=== PATIENT | male | born 1950 | race Caucasian/White ===

== ENCOUNTER 2017-04-04 18:23 | Inpatient (IN) | payer MEDICAID, OTHER ==
[2017-04-04 18:29] VITALS: BMI 27.4
[2017-04-04 18:54] LABS: BASO # 0.1 K/uL (0.0-0.2); BASO % 0.8 % (0.0-2.0); EOS # 0.3 K/uL (0.0-0.7); EOS % 3.1 % (0.0-4.0); HEMATOCRIT 35.5 % (35.0-51.0); LYMPH # 2.1 K/uL (1.0-4.3); LYMPH % 22.6 % (20.0-40.0); MEAN CELL VOLUME 85.2 fL (80.0-94.0); MEAN CORPUSCULAR HEMOGLOBIN 28.5 pg (27.0-31.0); MEAN CORPUSCULAR HGB CONC 33.5 g/dL (33.0-37.0); MEAN PLATELET VOLUME 8.4 fL (7.2-11.7); MONO # 1.6 K/uL (0.0-0.8); MONO % 16.7 % (0.0-10.0); NRBC % 0.1 % (0.0-2.0); RED CELL DISTRIBUTION WIDTH 15.7 % (11.5-14.5); WHITE BLOOD COUNT 9.5 K/uL (4.8-10.8)
[2017-04-04 18:59] LABS: CHLORIDE 101 mmol/L (98-107); SODIUM 135 mmol/L (132-148)
[2017-04-04 19:01] LABS: BILIRUBIN,TOTAL 0.8 mg/dL (0.2-1.3); GFR AFRICAN-AMERICAN > 60
[2017-04-04 19:02] LABS: ALB/GLOB RATIO 1.1 (1.0-2.1); ALKALINE PHOSPHATASE 62 U/L (38-126); ALT/SGPT 20 U/L (21-72); AST/SGOT 19 U/L (17-59); BLOOD UREA NITROGEN 7 mg/dL (9-20); CARBON DIOXIDE 28 mmol/L (22-30); GLUCOSE,RANDOM 111 mg/dL (75-110); TOTAL PROTEIN 6.7 g/dL (6.3-8.3)
[2017-04-04 19:03] LABS: CALCIUM 8.4 mg/dl (8.6-10.4); INR 1.2
--- NOTE | 2017-04-04 19:45 | C.PDOC ---
History Of Present Illness Patient presents to the ER with a complaint of dyspenia and chest pain that began 1 hour NET TRAINER, associated with green/yellow sputum. Patient states he has not taken any medication for the pain. Patient is speaking in complete sentences. Denies fever, chills, nausea or vomiting. Time Seen by Provider: 04/04/17 19:44 Chief Complaint (Nursing): Chest Pain History Per: Patient History/Exam Limitations: no limitations Onset/Duration Of Symptoms: Hrs (1) Current Symptoms Are (Timing): Still Present Severity: Mild Pain Scale Rating Of: 4 Associated Symptoms: Other (Green/yellow sputum) Modifying Factors: None Exacerbating Factors: None Alleviating Factors: None Recent travel outside of the [place]: No Past Medical History Reviewed: Historical Data, Nursing Documentation, Vital Signs Vital Signs: Last Vital Signs Temp 98.1 F 04/04/17 18:45 Pulse 114 H 04/04/17 21:25 Resp 22 04/04/17 21:25 BP 119/63 04/04/17 21:25 Pulse Ox 95 04/04/17 21:33 - Medical History PMH: Asthma, CHF, COPD, Pneumonia, Pulmonary Embolism Surgical History: No Surg Hx - [facility] Procedures ASSISTANCE WITH RESPIRATORY VENTILATION, >96 HRS (07/28/16) INFLUENZA VACCINATION (08/27/13) INSERTION OF INFUSION DEV INTO SUP VENA CAVA, PERC APPROACH (07/28/16) INSERTION OF INTRALUM DEV INTO INF VENA CAVA, PERC APPROACH (03/09/17) INTRODUCE OF OTH THERAP SUBST INTO RESP TRACT, VIA OPENING (05/25/16) INTRODUCTION OF ANTI-INFLAM INTO RESP TRACT, VIA OPENING (03/09/17) INTRODUCTION OF SERUM/TOX/VACCINE INTO MUSCLE, PERC APPROACH (07/28/16) NEBULIZER THERAPY (08/26/14) TRANSFUSE NONAUT FROZEN PLASMA IN PERIPH VEIN, PERC (07/28/16) TRANSFUSE NONAUT PLASMA CRYOPRECIP IN PERIPH VEIN, PERC (07/28/16) TRANSFUSE NONAUT RED BLOOD CELLS IN PERIPH VEIN, PERC (07/28/16) VACCINATION NEC (08/27/13) Family History: States: Unknown Family Hx, OR, Diabetes - Social History Hx Tobacco Use: Yes (1/2 CIG/DAY) Hx Alcohol Use: Yes Hx Substance Use: No - Immunization History Hx Tetanus Toxoid Vaccination: No Hx Influenza Vaccination: No Hx Pneumococcal Vaccination: No Review Of Systems Constitutional: Negative for: Fever, Chills ENT: Negative for: Throat Pain Cardiovascular: Positive for: Chest Pain Respiratory: Positive for: Shortness of Breath Gastrointestinal: Negative for: Nausea, Vomiting Genitourinary: Negative for: Dysuria Musculoskeletal: Negative for: Back Pain Skin: Positive for: Rash Neurological: Negative for: Weakness Psych: Negative for: Anxiety Physical Exam - Physical Exam Appears: Non-toxic Skin: Warm, Dry, Other (Diffuse psoriatic patches to arms, legs and back. Poor vascular venous stasis skin changes.) Eye(s): bilateral: Normal Inspection Oral Mucosa: Moist Neck: Supple Chest: Symmetrical, No Tenderness Cardiovascular: Rhythm Regular (Tachycardic), No Murmur Respiratory: Decreased Breath Sounds, No Rales, Rhonchi, Wheezing Gastrointestinal/Abdominal: Soft, No Tenderness Back: Normal Inspection Extremity: Pedal Edema (Bilaterally), No Calf Tenderness Extremity: Bilateral: Painful To Bear Weight Neurological/Psych: Oriented x3, Normal Speech, Normal Cognition Gait: With Assistance ED Course And Treatment - Laboratory Results Result Diagrams: 04/04/17 18:46 04/04/17 18:46 ECG: Interpreted By Me, Viewed By Me ECG Rhythm: Nonspecific Changes O2 Sat by Pulse Oximetry: 95 (Room air) Pulse Ox Interpretation: Normal - Radiology CXR: Interpreted by Me, Viewed By Me CXR Interpretation: Yes: Cardiomegaly, Other (?rll infiltrate). No: Fracture, Pnemothorax Progress Note: EKG, CXR and blood work ordered. Aspirin, lasix and nebulizer treatment administered. Disposition Discussed With : Bc Sanches Comment: accepted the pt on his service and took over the care at 10:33 PM Doctor Will See Patient In The: ED Counseled Patient/Family Regarding: Studies Performed, Diagnosis - Disposition Disposition: HOSPITALIZED Disposition Time: 19:45 Condition: FAIR - POA Present On Arrival: Poor Glycemic Control - Clinical Impression Clinical Impression: Acute exacerbation of chronic obstructive pulmonary disease - Scribe Statement The provider has reviewed the documentation as recorded by the Scribe Gibson Rivera All medical record entries made by the Scribe were at my direction and personally dictated by me. I have reviewed the chart and agree that the record accurately reflects my personal performance of the history, physical exam, medical decision making, and the department course for this patient. I have also personally directed, reviewed, and agree with the discharge instructions and disposition. Decision To Admit - Pt Status Changed To: Hospital Disposition Of: Inpatient - Admit Certification Admit to Inpatient:: After my assessment, the patient will require hospitalization for at least two midnights. This is because of the severity of symptoms shown, intensity of services needed, and/or the medical risk in this patient being treated as an outpatient. - InPatient: Physician Admission Certification: I certify that this patient requires 2 or more midnights of care for the following reason:: After my assessment, the patient will require hospitalization for at least two midnights. This is because of the severity of symptoms shown, intensity of services needed, and/or the medical risk in this patient being treated as an outpatient. - . Bed Request Type: Regular Admitting Physician: Bc Sanches Patient Diagnosis: Acute exacerbation of chronic obstructive pulmonary disease, Dyspnea
[2017-04-04] MEDS ORDERED: Albuterol-Ipratrop 3 mg / 0.5 (3 ml) UD ONE (19:56)
[2017-04-04] MEDS: Albuterol-Ipratrop 3 mg / 0.5 (3 ml) UD IH SCH ×2 (20:00→20:15)
[2017-04-04 20:06] LABS: ABG ALLEN TEST POS; DRAW SITE RRA
[2017-04-04] MEDS ORDERED: Albuterol 0.042% Inhal Sol (1.25 mg/3 mL) UD INH PRN (23:29)
[2017-04-05] MEDS: Sodium Chloride 0.9% 1,000 ML IV SCH ×3 (00:12→19:30)
--- NOTE | 2017-04-05 03:46 | CP.PCM.HP ---
<Pat Reeves - Last Filed: 04/05/17 03:56> History of Present Illness - History of Present Illness History of Present Illness: CC - "Shortness of breath" HPI - Pt is a 66 year old male, with a past medical history of COPD , hypertension, asthma, pulmonary embolism (not on anticoagulation because of history of hematoma), presented to emergency room complaining of sob, chest pain that started 1 hour prior to arrival and productive cough with associated with green/yellow sputum.. He was recently discharged from [place] on 03/17/17 but states he did not fill any medications because he did not have money. Patient states he has not taken any medication for the pain. Patient is speaking in complete sentences. Denies fever, chills, nausea or vomiting, abd pain, numbness or tingling in the extremities. He admits to leg swelling. PMHx - CPOD, DM, HTN, Asthma, PE (IVC filter), retroperotineal hematoma, psoriasis Meds - does not take any because he does not have money to fill them Allergies - NKDA Surg - none Fam Hx - unknown Social - 30 pack year history quit 1 year ago used to smoke 3-4 packs a day, used to drink a lot, denies drug use. he stays at a friends house during the week but in the senior living. he goes to the senior living daily for meals and walks there PCP- Does not have a PCP Present on Admission - Present on Admission Any Indicators Present on Admission: Yes History of DVT/PE: Yes Review of Systems - Constitutional Constitutional: absent: Chills, Fever - EENT Eyes: absent: Blurred Vision, Change in Vision - Cardiovascular Cardiovascular: Chest Pain, Chest Pain at Rest, Leg Edema. absent: Palpitations , Syncope - Respiratory Respiratory: Cough, Dyspnea, Dyspnea on Exertion - Gastrointestinal Gastrointestinal: absent: Abdominal Pain, Constipation, Cramping, Diarrhea, Nausea, Vomiting - Genitourinary Genitourinary: absent: Change in Urinary Stream, Difficulty Urinating - Musculoskeletal Musculoskeletal: absent: Numbness, Tingling - Neurological Neurological: absent: Dizziness Past Patient History - Infectious Disease Hx of Infectious Diseases: None - Tetanus Immunizations Tetanus Immunization: Unknown - Past Medical History & Family History Past Medical History?: Yes - Past Social History Smoking Status: Former Smoker - CARDIAC Hx Congestive Heart Failure: Yes - PULMONARY Hx Asthma: Yes Hx Chronic Obstructive Pulmonary Disease (COPD): Yes Hx Pneumonia: Yes Hx Pulmonary Embolism: Yes - NEUROLOGICAL Hx Neurological Disorder: No - HEENT Hx HEENT Problems: No - RENAL Hx Chronic Kidney Disease: No - ENDOCRINE/METABOLIC Hx Endocrine Disorders: No - HEMATOLOGICAL/ONCOLOGICAL Hx Human Immunodeficiency Virus (HIV): No - INTEGUMENTARY Hx Dermatological Problems: Yes (GENERALIZED SKIN RASH) - MUSCULOSKELETAL/RHEUMATOLOGICAL Hx Musculoskeletal Disorders: No Hx Falls: Yes - GASTROINTESTINAL Hx Gastrointestinal Disorders: Yes Other/Comment: GI bleeding on last admission while on anti-coagulation - GENITOURINARY/GYNECOLOGICAL Hx Genitourinary Disorders: No - PSYCHIATRIC Hx Substance Use: No - SURGICAL HISTORY Hx Surgeries: No - ANESTHESIA Hx Anesthesia: No Hx Anesthesia Reactions: No Meds Allergies/Adverse Reactions: Allergies Allergy/AdvReac Type Severity Reaction Status Date / Time No Known Allergies Allergy Verified 04/04/17 18:49 Physical Exam - Constitutional Appears: Non-toxic, No Acute Distress, Unkempt, Chronically Ill - Eye Exam Eye Exam: Normal appearance, PERRL - ENT Exam ENT Exam: Mucous Membranes Dry - Respiratory Exam Respiratory Exam: Rales, Wheezes, NORMAL BREATHING PATTERN. absent: Accessory Muscle Use, Respiratory Distress - Cardiovascular Exam Cardiovascular Exam: REGULAR RHYTHM, +S1, +S2 - GI/Abdominal Exam GI & Abdominal Exam: Normal Bowel Sounds, Soft. absent: Distended, Firm, Guarding, Tenderness - Extremities Exam Extremities exam: Positive for: normal inspection, pedal edema Additional comments: skin changes, dry skin, edema b/l lower ext - Back Exam Back exam: NORMAL INSPECTION - Neurological Exam Neurological exam: Alert, Oriented x3 - Psychiatric Exam Psychiatric exam: Normal Affect, Normal Mood - Skin Skin Exam: Dry, Intact, Normal Color, Warm Additional comments: Psoriasis plaques all over body on trunk and all extremities Results - Vital Signs Recent Vital Signs: Last Vital Signs Temp 97.5 F L 04/04/17 23:55 Pulse 105 H 04/04/17 23:55 Resp 20 04/04/17 23:55 BP 129/71 04/04/17 23:55 Pulse Ox 95 04/04/17 23:55 - Labs Result Diagrams: 04/04/17 18:46 04/04/17 18:46 Assessment & Plan - Assessment and Plan (Free Text) Plan: COPD exacerbation + wheezing with productive cough - r/o pneumonia f/u Chest X ray Prednisone 60mg PO daily Pulmicort Duonebs Q6 Alubterol prn wheezing Zithromax 250mg PO daily f/u Troponins x 3, first one negative f/u AM labs f/u blood culture DM last HBA1c 6.4 in February 2017 ISS Accuchecks Hx PE IVC filter in place Patient tachycardic O2 prn via NC no anticogulation due to hx of retroperotineal bleed Prophylactic Measures NS at 100 cc/hour SC Heparin <Bc Sanches P - Last Filed: 04/05/17 23:32> Results - Vital Signs Recent Vital Signs: Last Vital Signs Temp 97.9 F 04/05/17 15:34 Pulse 102 H 04/05/17 15:34 Resp 20 04/05/17 15:34 BP 144/75 04/05/17 15:34 Pulse Ox 99 04/05/17 15:34 - Labs Result Diagrams: 04/05/17 06:18 04/05/17 06:18 Labs: Laboratory Results - last 24 hr 04/05/17 04/05/17 04/05/17 06:10 06:18 06:18 WBC 7.6 RBC 3.97 L Hgb 11.5 L Hct 34.0 L MCV 85.8 MCH 28.9 MCHC 33.7 RDW 15.8 H Plt Count 200 MPV 8.3 Neut % (Auto) 46.2 L Lymph % (Auto) 28.9 [place]arro % (Auto) 19.2 H Eos % (Auto) 5.2 H Baso % (Auto) 0.5 Neut # 3.5 Lymph # 2.2 [place]arro # 1.5 H Eos # 0.4 Baso # 0.0 Sodium 136 Potassium 3.6 Chloride 99 Carbon Dioxide 30 Anion Gap 11 BUN 9 Creatinine 0.8 Est GFR ( Amer) > 60 Est GFR (Non-Af Amer) > 60 POC Glucose (mg/dL) 160 H Random Glucose 102 Calcium 8.1 L Phosphorus 4.1 Magnesium 1.5 L Total Bilirubin 0.5 AST 17 ALT 15 L D Alkaline Phosphatase 61 Total Creatine Kinase 59 CK-MB (Mass) 1.48 Troponin I, Quant 0.0150 Total Protein 6.0 L Albumin 3.0 L Globulin 3.0 Albumin/Globulin Ratio 1.0 Vitamin B12 383 25-OH Vitamin D Total 04/05/17 04/05/17 04/05/17 06:18 11:03 12:12 WBC RBC Hgb Hct MCV MCH MCHC RDW Plt Count MPV Neut % (Auto) Lymph % (Auto) Navarro % (Auto) Eos % (Auto) Baso % (Auto) Neut # Lymph # Navarro # Eos # Baso # Sodium Potassium Chloride Carbon Dioxide Anion Gap BUN Creatinine Est GFR ( Amer) Est GFR (Non-Af Amer) POC Glucose (mg/dL) 108 Random Glucose Calcium Phosphorus Magnesium Total Bilirubin AST ALT Alkaline Phosphatase Total Creatine Kinase 79 CK-MB (Mass) 2.02 Troponin I, Quant < 0.0120 Total Protein Albumin Globulin Albumin/Globulin Ratio Vitamin B12 25-OH Vitamin D Total < 12.8 L 04/05/17 04/05/17 17:13 21:01 WBC RBC Hgb Hct MCV MCH MCHC RDW Plt Count MPV Neut % (Auto) Lymph % (Auto) [place]arro % (Auto) Eos % (Auto) Baso % (Auto) Neut # Lymph # Navarro # Eos # Baso # Sodium Potassium Chloride Carbon Dioxide Anion Gap BUN Creatinine Est GFR ( Amer) Est GFR (Non-Af Amer) POC Glucose (mg/dL) 291 H 213 H Random Glucose Calcium Phosphorus Magnesium Total Bilirubin AST ALT Alkaline Phosphatase Total Creatine Kinase CK-MB (Mass) Troponin I, Quant Total Protein Albumin Globulin Albumin/Globulin Ratio Vitamin B12 25-OH Vitamin D Total Attending/Attestation - Attestation I have personally seen and examined this patient.: Yes I have fully participated in the care of the patient.: Yes I have reviewed all pertinent clinical information: Yes
[2017-04-05] MEDS: Albuterol-Ipratrop 3 mg / 0.5 (3 ml) UD INH SCH ×4 (04:29→20:19)
[2017-04-05 06:29] LABS: BASO % 0.5 % (0.0-2.0); EOS # 0.4 K/uL (0.0-0.7); EOS % 5.2 % (0.0-4.0); LYMPH # 2.2 K/uL (1.0-4.3); LYMPH % 28.9 % (20.0-40.0); MEAN CELL VOLUME 85.8 fL (80.0-94.0); MEAN CORPUSCULAR HEMOGLOBIN 28.9 pg (27.0-31.0); MEAN CORPUSCULAR HGB CONC 33.7 g/dL (33.0-37.0); MEAN PLATELET VOLUME 8.3 fL (7.2-11.7); MONO # 1.5 K/uL (0.0-0.8); MONO % 19.2 % (0.0-10.0); NRBC % 0.1 % (0.0-2.0); RED CELL DISTRIBUTION WIDTH 15.8 % (11.5-14.5); WHITE BLOOD COUNT 7.6 K/uL (4.8-10.8)
[2017-04-05 07:10] LABS: CHLORIDE 99 mmol/L (98-107); POTASSIUM 3.6 mmol/L (3.6-5.2); SODIUM 136 mmol/L (132-148)
[2017-04-05 07:12] LABS: AST/SGOT 17 U/L (17-59); BILIRUBIN,TOTAL 0.5 mg/dL (0.2-1.3); CARBON DIOXIDE 30 mmol/L (22-30); GFR AFRICAN-AMERICAN > 60
[2017-04-05 07:13] LABS: ALKALINE PHOSPHATASE 61 U/L (38-126); ALT/SGPT 15 U/L (21-72); BLOOD UREA NITROGEN 9 mg/dL (9-20); CALCIUM 8.1 mg/dl (8.6-10.4); GLUCOSE,RANDOM 102 mg/dL (75-110); MAGNESIUM 1.5 mg/dL (1.6-2.3); PHOSPHOROUS 4.1 mg/dL (2.5-4.5)
[2017-04-05] MEDS: Budesonide 0.5 mg/2 ml Inhal Susp UD INH SCH ×2 (08:23→20:19)
[2017-04-05] MEDS: (Novolin R) Insulin Human Regular 100 units/ml vial SC SCH ×4 (08:25→22:13)
--- NOTE | 2017-04-05 10:03 | CP.PCM.PN ---
Subjective - Date & Time of Evaluation Date of Evaluation: 04/05/17 Time of Evaluation: 09:30 - Subjective Subjective: Medicine Note- Hospitalist Service Patient was seen and examined at bedside. Patient reports no acute complaints at this time. He says his breathing is better than when he first came in, but not at baseline yet. No events overnight, per nursing. Objective - Vital Signs/Intake and Output Vital Signs (last 24 hours): Temp Pulse Resp BP Pulse Ox 98.4 F 101 H 20 143/73 100 04/05/17 07:30 04/05/17 07:30 04/05/17 07:30 04/05/17 07:30 04/05/17 07:30 - Medications Medications: Current Medications Albuterol Sulfate (Albuterol 0.042% Inhal Deepa (1.25mg/3ml) Ud) 1.25 mg INH RQ3 PRN PRN Reason: Wheezing Albuterol/Ipratropium (Duoneb 3 Mg/0.5 Mg (3 Ml) Ud) 3 ml INH RQ6 [facility] Last Admin: 04/05/17 08:24 Dose: 3 ml Azithromycin (Zithromax) 250 mg PO DAILY [facility] Last Admin: 04/05/17 09:21 Dose: 250 mg Budesonide (Pulmicort Respules) 0.5 mg INH RQ12 [facility] Last Admin: 04/05/17 08:23 Dose: 0.5 mg Famotidine (Pepcid) 20 mg PO BID [facility] Last Admin: 04/05/17 09:21 Dose: 20 mg Heparin Sodium (Porcine) (Heparin) 5,000 units SC Q8 [facility] Last Admin: 04/05/17 00:09 Dose: 5,000 units Sodium Chloride (Sodium Chloride 0.9%) 1,000 mls @ 100 mls/hr IV .Q10H [facility] Last Admin: 04/05/17 00:12 Dose: 100 mls/hr Insulin Human Regular (Novolin R) 0 unit SC ACHS [facility] PRN Reason: Protocol Last Admin: 04/05/17 08:25 Dose: 2 unit Pneumococcal Polyvalent Vaccine (Pneumovax 23 Vaccine) 0.5 ml IM .ONCE ONE Stop: 04/06/17 10:01 Prednisone (Prednisone Tab) 60 mg PO DAILY [facility] Last Admin: 04/05/17 09:21 Dose: 60 mg - Labs Labs: 04/05/17 06:18 04/05/17 06:18 PT 13.3 SECONDS (9.7-12.2) H 04/04/17 18:46 INR 1.2 04/04/17 18:46 APTT 40 SECONDS (21-34) H 04/04/17 18:46 - Constitutional Appears: Non-toxic, No Acute Distress - Head Exam Head Exam: ATRAUMATIC, NORMAL INSPECTION, NORMOCEPHALIC - Eye Exam Pupil Exam: NORMAL ACCOMODATION, PERRL - ENT Exam ENT Exam: Mucous Membranes Moist - Respiratory Exam Respiratory Exam: Wheezes - Cardiovascular Exam Cardiovascular Exam: REGULAR RHYTHM, +S1, +S2 - GI/Abdominal Exam GI & Abdominal Exam: Soft, Normal Bowel Sounds. absent: Tenderness, Diminished Bowel Sounds, Hernia, Hypoactive Bowel Sounds - Extremities Exam Extremities Exam: Normal Capillary Refill, Normal Inspection - Neurological Exam Neurological Exam: Alert, Awake, Oriented x3 - Psychiatric Exam Psychiatric exam: Normal Affect, Normal Mood Assessment and Plan - Assessment and Plan (Free Text) Assessment: COPD exacerbation + wheezing with productive cough - r/o pneumonia CXR- 04/04/17- f/u official read Started on Solumedrol 40mg IVP Q8h Pulmicort INH Q12h Duonebs Q4h scheduled Albuterol prn wheezing Zithromax 250mg PO daily ROMIs negative x 3 DM last HBA1c 6.4 in February 2017 ISS Accuchecks Hx PE IVC filter in place Patient tachycardic O2 prn via NC no anticogulation due to hx of retroperitoneal bleed Prophylactic Measures NS at 100 cc/hour SC Heparin
[2017-04-05] MEDS: Magnesium Sulfate 1 gm in D5W 1 GM/100 ML BAG IVPB SCH ×2 (13:39→14:47)
[2017-04-05] MEDS ORDERED: Albuterol-Ipratrop 3 mg / 0.5 (3 ml) UD INH SCH (14:45)
[2017-04-05] MEDS: MethylPREDNISolone 40 mg Vial IVP SCH ×2 (14:57→22:12)
[2017-04-05] MEDS: Ergocalciferol 50,000 Intl Units Cap PO SCH (14:57)
--- NOTE | 2017-04-05 20:09 | RAD ---
PROCEDURE: CHEST RADIOGRAPH, 1 VIEW HISTORY: SOB COMPARISON: Comparison chest 10/16/2013 FINDINGS: LUNGS: Vague patchy opacity seen in the right lung base could represent atelectasis versus developing infiltrate. Minimal left basilar atelectasis. Note that both lung apices are partially obscured by overlying facial soft tissue and mandible artifact. PLEURA: No pneumothorax or pleural fluid seen. CARDIOVASCULAR: Normal. OSSEOUS STRUCTURES: No significant abnormalities. VISUALIZED UPPER ABDOMEN: Normal. OTHER FINDINGS: None. IMPRESSION: Vague patchy opacity seen in the right lung base could represent atelectasis versus developing infiltrate. Minimal left basilar atelectasis. Note that both lung apices are partially obscured by overlying facial soft tissue and mandible artifact. Report placed in PA review folder for followup
[2017-04-06] MEDS: Albuterol-Ipratrop 3 mg / 0.5 (3 ml) UD INH SCH ×7 (00:11→23:53)
[2017-04-06] MEDS: Sodium Chloride 0.9% 1,000 ML IV SCH ×3 (02:31→21:14)
[2017-04-06] MEDS: MethylPREDNISolone 40 mg Vial IVP SCH ×3 (05:40→21:24)
[2017-04-06 07:59] LABS: ALKALINE PHOSPHATASE 61 U/L (38-126); ALT/SGPT 13 U/L (21-72); AST/SGOT 18 U/L (17-59); BILIRUBIN,TOTAL 0.4 mg/dL (0.2-1.3); BLOOD UREA NITROGEN 14 mg/dL (9-20); CARBON DIOXIDE 26 mmol/L (22-30); CHLORIDE 103 mmol/L (98-107); GFR AFRICAN-AMERICAN > 60; GLUCOSE,RANDOM 206 mg/dL (75-110); POTASSIUM 3.8 mmol/L (3.6-5.2); SODIUM 138 mmol/L (132-148); TOTAL PROTEIN 6.3 g/dL (6.3-8.3)
[2017-04-06 08:01] LABS: BASO % 0.2 % (0.0-2.0); HEMATOCRIT 34.6 % (35.0-51.0); LYMPH % 10.7 % (20.0-40.0); MEAN CELL VOLUME 86.3 fL (80.0-94.0); MEAN CORPUSCULAR HEMOGLOBIN 28.5 pg (27.0-31.0); MEAN CORPUSCULAR HGB CONC 33.1 g/dL (33.0-37.0); MEAN PLATELET VOLUME 8.4 fL (7.2-11.7); MONO # 0.5 K/uL (0.0-0.8); MONO % 5.3 % (0.0-10.0); RED CELL DISTRIBUTION WIDTH 15.8 % (11.5-14.5)
[2017-04-06] MEDS: (Novolin R) Insulin Human Regular 100 units/ml vial SC SCH ×4 (08:15→21:32)
[2017-04-06] MEDS: Budesonide 0.5 mg/2 ml Inhal Susp UD INH SCH ×2 (08:19→19:12)
[2017-04-06] MEDS ORDERED: Pneumococcal 23-Valent Vaccine IM ONE (10:00)
--- NOTE | 2017-04-06 10:40 | CP.PCM.PN ---
<Darian Metcalf - Last Filed: 04/06/17 11:01> Subjective - Date & Time of Evaluation Date of Evaluation: 04/06/17 Time of Evaluation: 08:30 - Subjective Subjective: Medicine Note- Hospitalist Service Patient was seen and examined at bedside. Patient reports his breathing is better than the previous day, but he is still coughing significantly and feels mildly short of breath. He denies any additional acute complaints. No events overnight, per nursing. Objective - Vital Signs/Intake and Output Vital Signs (last 24 hours): Temp Pulse Resp BP Pulse Ox 97.6 F 100 H 18 157/89 H 96 04/06/17 07:25 04/06/17 07:25 04/06/17 07:25 04/06/17 07:25 04/06/17 07:25 Intake and Output: 04/06/17 04/06/17 06:59 18:59 Intake Total 2040 Output Total 1600 Balance 440 - Medications Medications: Current Medications Albuterol Sulfate (Albuterol 0.042% Inhal Deepa (1.25mg/3ml) Ud) 1.25 mg INH RQ3 PRN PRN Reason: Wheezing Albuterol/Ipratropium (Duoneb 3 Mg/0.5 Mg (3 Ml) Ud) 3 ml INH RQ4 [facility] Last Admin: 04/06/17 08:19 Dose: 3 ml Azithromycin (Zithromax) 250 mg PO DAILY [facility] Last Admin: 04/06/17 09:09 Dose: 250 mg Budesonide (Pulmicort Respules) 0.5 mg INH RQ12 [facility] Last Admin: 04/06/17 08:19 Dose: 0.5 mg Ergocalciferol (Drisdol 50,000 Intl Units Cap) 1 cap PO Q7D [facility] Last Admin: 04/05/17 14:57 Dose: 1 cap Famotidine (Pepcid) 20 mg PO BID [facility] Last Admin: 04/06/17 09:09 Dose: 20 mg Heparin Sodium (Porcine) (Heparin) 5,000 units SC Q8 [facility] Last Admin: 04/06/17 05:39 Dose: 5,000 units Sodium Chloride (Sodium Chloride 0.9%) 1,000 mls @ 100 mls/hr IV .Q10H [facility] Last Admin: 04/06/17 02:31 Dose: 100 mls/hr Insulin Human Regular (Novolin R) 0 unit SC ACHS [facility] PRN Reason: Protocol Last Admin: 04/06/17 08:15 Dose: 3 unit Methylprednisolone (Solu-Medrol) 40 mg IVP Q8 [facility] Last Admin: 04/06/17 05:40 Dose: 40 mg Pneumococcal Polyvalent Vaccine (Pneumovax 23 Vaccine) 0.5 ml IM .ONCE ONE Stop: 04/07/17 10:01 - Labs Labs: 04/06/17 07:26 04/06/17 07:26 PT 13.3 SECONDS (9.7-12.2) H 04/04/17 18:46 INR 1.2 04/04/17 18:46 APTT 40 SECONDS (21-34) H 04/04/17 18:46 - Constitutional Appears: Non-toxic, No Acute Distress - Head Exam Head Exam: ATRAUMATIC, NORMAL INSPECTION, NORMOCEPHALIC - Eye Exam Pupil Exam: NORMAL ACCOMODATION - ENT Exam ENT Exam: Mucous Membranes Moist - Respiratory Exam Respiratory Exam: Wheezes. absent: Prolonged Expiratory Phase, Rales, Rhonchi - Cardiovascular Exam Cardiovascular Exam: REGULAR RHYTHM, +S1, +S2 - GI/Abdominal Exam GI & Abdominal Exam: Soft, Normal Bowel Sounds. absent: Tenderness, Diminished Bowel Sounds, Hernia, Hyperactive Bowel Sounds, Hypoactive Bowel Sounds - Extremities Exam Extremities Exam: Normal Capillary Refill Additional comments: diffuse psoriasis plaques along both arms and legs - Neurological Exam Neurological Exam: Alert, Awake, Oriented x3 - Psychiatric Exam Psychiatric exam: Normal Affect, Normal Mood - Skin Skin Exam: Dry, Intact, Normal Color, Warm Assessment and Plan - Assessment and Plan (Free Text) Assessment: COPD exacerbation + wheezing with productive cough - r/o pneumonia f/u Chest CT w/o contrast CXR- 04/04/17- Vague patchy opacity seen in the right lung base could represent atelectasis vs developing infiltrate. Minimal left basilar atelectasis. (Please see full report) Continue on Solumedrol 40mg IVP Q8h Pulmicort INH Q12h Duonebs Q4h scheduled Albuterol prn wheezing Zithromax 250mg PO daily ROMIs negative x 3 DM last HBA1c 6.4 in February 2017 ISS Accuchecks Hx PE IVC filter in place O2 prn via NC no anticoagulation due to hx of retroperitoneal bleed Psoriasis Started Hydrocortison 1% cream BID for areas that become pruritic for patient Nursing communication order for topical lotion to set at bedside for other affected areas. Prophylactic Measures NS at 100 cc/hour Held Heparin due to hx of retroperitoneal bleed <Charles Preciado H - Last Filed: 04/06/17 13:29> Objective - Vital Signs/Intake and Output Vital Signs (last 24 hours): Temp Pulse Resp BP Pulse Ox 97.6 F 100 H 18 157/89 H 96 04/06/17 07:25 04/06/17 07:25 04/06/17 07:25 04/06/17 07:25 04/06/17 07:25 Intake and Output: 04/06/17 04/06/17 06:59 18:59 Intake Total 2040 Output Total 1600 Balance 440 - Medications Medications: Current Medications Albuterol Sulfate (Albuterol 0.042% Inhal Deepa (1.25mg/3ml) Ud) 1.25 mg INH RQ3 PRN PRN Reason: Wheezing Albuterol/Ipratropium (Duoneb 3 Mg/0.5 Mg (3 Ml) Ud) 3 ml INH RQ4 [facility] Last Admin: 04/06/17 12:13 Dose: 3 ml Azithromycin (Zithromax) 250 mg PO DAILY [facility] Last Admin: 04/06/17 09:09 Dose: 250 mg Budesonide (Pulmicort Respules) 0.5 mg INH RQ12 [facility] Last Admin: 04/06/17 08:19 Dose: 0.5 mg Ergocalciferol (Drisdol 50,000 Intl Units Cap) 1 cap PO Q7D [facility] Last Admin: 04/05/17 14:57 Dose: 1 cap Famotidine (Pepcid) 20 mg PO BID [facility] Last Admin: 04/06/17 09:09 Dose: 20 mg Hydrocortisone (Cortizone 1% Cream) 0 gm TOP BID [facility] Last Admin: 04/06/17 11:45 Dose: 1 applic Sodium Chloride (Sodium Chloride 0.9%) 1,000 mls @ 100 mls/hr IV .Q10H [facility] Last Admin: 04/06/17 02:31 Dose: 100 mls/hr Insulin Human Regular (Novolin R) 0 unit SC ACHS [facility] PRN Reason: Protocol Last Admin: 04/06/17 12:47 Dose: 3 unit Methylprednisolone (Solu-Medrol) 40 mg IVP Q8 [facility] Last Admin: 04/06/17 05:40 Dose: 40 mg Pneumococcal Polyvalent Vaccine (Pneumovax 23 Vaccine) 0.5 ml IM .ONCE ONE Stop: 04/07/17 10:01 - Labs Labs: 04/06/17 07:26 04/06/17 07:26 PT 13.3 SECONDS (9.7-12.2) H 04/04/17 18:46 INR 1.2 04/04/17 18:46 APTT 40 SECONDS (21-34) H 04/04/17 18:46 Attending/Attestation - Attestation I have personally seen and examined this patient.: Yes I have fully participated in the care of the patient.: Yes I have reviewed all pertinent clinical information, including history, physical exam and plan: Yes Notes (Text): Medical Attending: Patient was seen and examined by me. Agree with the above note by the resident. The patient was still having wheezing when I saw and examined with the resident. Will need to continue the IV solumedrol as well as the inhalers Reviewed the CXRAY, and will get a CT scan of the chest to further assess the lungs. He has almost these bilateral hazy areas. Continued on IV abx for the time being. The WBC is 9 today Also of note is the history of PE, not on anticoagulation due to a history of heavy bleeding. He does have IVC filter Charles Preciado
[2017-04-06] MEDS: Hydrocortisone 1% Cream (30 GM) TOP SCH ×2 (11:45→17:30)
--- NOTE | 2017-04-06 19:19 | CT ---
PROCEDURE: CT scan chest dated 04/06/2017. HISTORY: Dyspnea. , consolidation on chest x-ray COMPARISON: Comparison made with chest radiograph 04/04/2017 TECHNIQUE: Contiguous axial images were obtained through the chest without intravenous contrast enhancement. Sagittal and coronal reconstructions were performed. Radiation dose (DLP): 539.20 mGy-cm. This CT exam was performed using one or more of the following dose reduction techniques: Automated exposure control, adjustment of the mA and/or kV according to patient size, and/or use of iterative reconstruction technique. FINDINGS: LUNGS: Mild atelectasis and or scarring changes both lung bases including the lingular and middle lobe regions. The. No evidence of effusion or pneumothorax. Centrilobular and paraseptal emphysematous changes are with upper lobe predominance right greater than left. . There also appear to be small bullous and prominent bleb changes in the right lung apex and to a lesser degree left upper lobe. . Minor biapical pleural thickening. Small calcified granuloma left lung apex consistent with prior exposure to a granulomatous disease process. There is additional small nodules seen in the left lateral upper lobe near the lateral convexity measuring approximately 3.6 mm. . Tiny approximately 3 mm nodule right lateral lung base MEDIASTINUM: There are a few small nonspecific mediastinal lymph nodes. Evaluation for hilar adenopathy is limited due to the the lack of circulating intravenous contrast material. Heart size is within range of normal. Questionable trace pericardial effusion versus pericardial granulation tissue. The ascending thoracic aorta measures approximately 3.6 cm and descending thoracic aorta measures approximately 2.875 cm. Pulmonary trunk is mildly enlarged measuring approximately 4 cm; findings suggest underlying pulmonary arterial hypertension. . Central airways are midline and patent. Small hiatal hernia with slight wall thickening of the distal esophagus that could be due to protrusion of gastric mucosa. Esophagitis not excluded. PLEURA: No pleural fluid. No pneumothorax. BONES: Mild multilevel degenerative spondylosis of the thoracic spine. UPPER ABDOMEN: In situ IVC filter. . OTHER FINDINGS: None. IMPRESSION: There are atelectatic/scarring changes both lung bases including on the lingular and middle lobe regions. Central lobular emphysematous changes with upper lobe predominance. There are also small bulla and/or of large bleb changes in the right lung apex and to a lesser degree left and at anterior upper lung field. Small calcific granuloma left lobe apex. Small nodule lateral aspect left upper lobe and another in the right lower lobe. Followup CT scan 3 months could be performed to assess stability. In situ IVC filter. See above discussion for additional findings and details.
[2017-04-07] MEDS: Albuterol-Ipratrop 3 mg / 0.5 (3 ml) UD INH SCH ×6 (03:20→23:46)
[2017-04-07] MEDS: MethylPREDNISolone 40 mg Vial IVP SCH ×3 (06:12→21:37)
[2017-04-07 07:28] LABS: BASO # 0.1 K/uL (0.0-0.2); BASO % 0.4 % (0.0-2.0); HEMATOCRIT 33.7 % (35.0-51.0); LYMPH # 1.1 K/uL (1.0-4.3); LYMPH % 7.9 % (20.0-40.0); MEAN CELL VOLUME 86.1 fL (80.0-94.0); MEAN CORPUSCULAR HEMOGLOBIN 28.4 pg (27.0-31.0); MEAN PLATELET VOLUME 8.6 fL (7.2-11.7); MONO # 0.5 K/uL (0.0-0.8); MONO % 3.9 % (0.0-10.0); PLATELET COUNT 234 K/uL (130-400); RED CELL DISTRIBUTION WIDTH 16.2 % (11.5-14.5)
[2017-04-07 07:31] LABS: WHITE BLOOD COUNT 13.7 K/uL (4.8-10.8)
[2017-04-07 07:37] LABS: CHLORIDE 102 mmol/L (98-107); POTASSIUM 4.2 mmol/L (3.6-5.2); SODIUM 137 mmol/L (132-148)
[2017-04-07 07:40] LABS: ALKALINE PHOSPHATASE 53 U/L (38-126); ALT/SGPT 20 U/L (21-72); AST/SGOT 26 U/L (17-59); BILIRUBIN,TOTAL 0.5 mg/dL (0.2-1.3); BLOOD UREA NITROGEN 19 mg/dL (9-20); CARBON DIOXIDE 25 mmol/L (22-30); GFR AFRICAN-AMERICAN > 60; GLUCOSE,RANDOM 179 mg/dL (75-110); TOTAL PROTEIN 6.5 g/dL (6.3-8.3)
[2017-04-07 07:41] LABS: CALCIUM 8.3 mg/dl (8.6-10.4)
[2017-04-07] MEDS: (Novolin R) Insulin Human Regular 100 units/ml vial SC SCH ×4 (08:40→21:37)
[2017-04-07 08:44] LABS: NEUTROPHIL 87 % (50-75); NUCLEATED RED BLOOD CELL 1 % (0-0); TOTAL CELLS COUNTED 100
[2017-04-07] MEDS: Sodium Chloride 0.9% 1,000 ML IV SCH (08:49)
[2017-04-07] MEDS: Budesonide 0.5 mg/2 ml Inhal Susp UD INH SCH ×2 (08:57→20:58)
[2017-04-07] MEDS ORDERED: Pneumococcal 23-Valent Vaccine IM ONE (10:00)
[2017-04-07] MEDS: Hydrocortisone 1% Cream (30 GM) TOP SCH (10:04)
--- NOTE | 2017-04-07 10:24 | CP.PCM.PN ---
<SelinaBetsy henao - Last Filed: 04/07/17 15:21> Subjective - Date & Time of Evaluation Date of Evaluation: 04/07/17 Time of Evaluation: 10:20 - Subjective Subjective: Patient seen and examined at bedside. Patient states he continues to feel short of breath and have significant cough productive of green sputum. He reports chills and diaphoresis overnight. Patient also reports significant pruritus to psoriatic plaques. He denies chest pain, palpitations, nausea, vomiting, abdominal pain, diarrhea, constipation and dysuria. Objective - Vital Signs/Intake and Output Vital Signs (last 24 hours): Temp Pulse Resp BP Pulse Ox 97.4 F L 77 18 161/85 H 100 04/07/17 08:32 04/07/17 08:32 04/07/17 08:32 04/07/17 08:32 04/07/17 08:32 Intake and Output: 04/07/17 04/07/17 06:59 18:59 Intake Total 1990 Output Total 700 Balance 1290 - Medications Medications: Current Medications Albuterol Sulfate (Albuterol 0.042% Inhal Deepa (1.25mg/3ml) Ud) 1.25 mg INH RQ3 PRN PRN Reason: Wheezing Albuterol/Ipratropium (Duoneb 3 Mg/0.5 Mg (3 Ml) Ud) 3 ml INH RQ4 [facility] Last Admin: 04/07/17 08:57 Dose: 3 ml Azithromycin (Zithromax) 250 mg PO DAILY [facility] Last Admin: 04/07/17 10:03 Dose: 250 mg Budesonide (Pulmicort Respules) 0.5 mg INH RQ12 [facility] Last Admin: 04/07/17 08:57 Dose: 0.5 mg Ergocalciferol (Drisdol 50,000 Intl Units Cap) 1 cap PO Q7D [facility] Last Admin: 04/05/17 14:57 Dose: 1 cap Famotidine (Pepcid) 20 mg PO BID [facility] Last Admin: 04/07/17 10:03 Dose: 20 mg Hydrocortisone (Cortizone 1% Cream) 0 gm TOP BID [facility] Last Admin: 04/07/17 10:04 Dose: 1 applic Sodium Chloride (Sodium Chloride 0.9%) 1,000 mls @ 100 mls/hr IV .Q10H [facility] Last Admin: 04/07/17 08:49 Dose: 100 mls/hr Insulin Human Regular (Novolin R) 0 unit SC ACHS [facility] PRN Reason: Protocol Last Admin: 04/07/17 08:40 Dose: 3 unit Methylprednisolone (Solu-Medrol) 40 mg IVP Q8 [facility] Last Admin: 04/07/17 06:12 Dose: 40 mg - Labs Labs: 04/07/17 07:15 04/07/17 07:15 PT 13.3 SECONDS (9.7-12.2) H 04/04/17 18:46 INR 1.2 04/04/17 18:46 APTT 40 SECONDS (21-34) H 04/04/17 18:46 - Constitutional Appears: Non-toxic, No Acute Distress - Head Exam Head Exam: ATRAUMATIC, NORMAL INSPECTION, NORMOCEPHALIC - Eye Exam Eye Exam: EOMI, Normal appearance, PERRL - ENT Exam ENT Exam: Mucous Membranes Moist - Neck Exam Neck Exam: Full ROM, Normal Inspection - Respiratory Exam Respiratory Exam: Wheezes. absent: Accessory Muscle Use, Clear to Ausculation Bilateral, NORMAL BREATHING PATTERN - Cardiovascular Exam Cardiovascular Exam: +S1, +S2. absent: Bradycardia, Tachycardia, Murmur - GI/Abdominal Exam GI & Abdominal Exam: Soft, Normal Bowel Sounds. absent: Firm, Tenderness - Extremities Exam Extremities Exam: Full ROM. absent: Pedal Edema, Tenderness - Neurological Exam Neurological Exam: Alert, Awake, Oriented x3 - Psychiatric Exam Psychiatric exam: Normal Affect, Normal Mood - Skin Additional comments: diffuse well-demarcated scaly plaques affecting trunk. Confluent scaly plaques affecting bilateral lower extremities. Assessment and Plan - Assessment and Plan (Free Text) Assessment: COPD exacerbation Patient continues to have significant wheezing Chest CT w/o contrast: There are atelectatic/scarring changes both lung bases including on the lingular and middle lobe regions. Central lobular emphysematous changes with upper lobe predominance. There are also small bulla and/or of large bleb changes in the right lung apex and to a lesser degree left and at anterior upper lung field. Small calcific granuloma left lobe apex. Small nodule lateral aspect left upper lobe and another in the right lower lobe. Followup CT scan 3 months could be performed to assess stability. In situ IVC filter. (see full report) CXR- 04/04/17- Vague patchy opacity seen in the right lung base could represent atelectasis vs developing infiltrate. Minimal left basilar atelectasis. 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 Prophylactic Measures Pepcid 20 mg po BID d/c NS at 100 cc/hour Held Heparin due to hx of retroperitoneal bleed <Jerry Elise - Last Filed: 04/07/17 17:32> Objective - Vital Signs/Intake and Output Vital Signs (last 24 hours): Temp Pulse Resp BP Pulse Ox 97.7 F 81 20 169/86 H 98 04/07/17 17:00 04/07/17 17:00 04/07/17 17:00 04/07/17 17:00 04/07/17 17:00 Intake and Output: 04/07/17 04/07/17 06:59 18:59 Intake Total 1990 1000 Output Total 700 Balance 1290 1000 - Medications Medications: Current Medications Albuterol Sulfate (Albuterol 0.042% Inhal Deepa (1.25mg/3ml) Ud) 1.25 mg INH RQ3 PRN PRN Reason: Wheezing Albuterol/Ipratropium (Duoneb 3 Mg/0.5 Mg (3 Ml) Ud) 3 ml INH RQ4 [facility] Last Admin: 04/07/17 15:57 Dose: 3 ml Amlodipine Besylate (Norvasc) 5 mg PO DAILY [facility] Azithromycin (Zithromax) 250 mg PO DAILY [facility] Last Admin: 04/07/17 10:03 Dose: 250 mg Betamethasone Valerate (Betamethasone Valerate 0.1%) 0 ml TOP BID [facility] Budesonide (Pulmicort Respules) 0.5 mg INH RQ12 [facility] Last Admin: 04/07/17 08:57 Dose: 0.5 mg Ergocalciferol (Drisdol 50,000 Intl Units Cap) 1 cap PO Q7D [facility] Last Admin: 04/05/17 14:57 Dose: 1 cap Famotidine (Pepcid) 20 mg PO BID [facility] Last Admin: 04/07/17 17:22 Dose: 20 mg Insulin Human Regular (Novolin R) 0 unit SC ACHS [facility] PRN Reason: Protocol Last Admin: 04/07/17 17:22 Dose: 3 unit Lactic Acid (Lac-Hydrin 12% Lotion (225 G)) 0 gm EXT BID [facility] Lisinopril (Zestril) 5 mg PO DAILY [facility] Metformin HCl (Glucophage) 500 mg PO BID [facility] Last Admin: 04/07/17 17:22 Dose: 500 mg Methylprednisolone (Solu-Medrol) 40 mg IVP Q8 [facility] Last Admin: 04/07/17 14:30 Dose: 40 mg - Labs Labs: 04/07/17 07:15 04/07/17 07:15 PT 13.3 SECONDS (9.7-12.2) H 04/04/17 18:46 INR 1.2 04/04/17 18:46 APTT 40 SECONDS (21-34) H 04/04/17 18:46 Attending/Attestation - Attestation I have personally seen and examined this patient.: Yes I have fully participated in the care of the patient.: Yes I have reviewed all pertinent clinical information, including history, physical exam and plan: Yes Notes (Text): 04/07/17 17:32 Patient was seen and examined at bedside with the resident Still has significant wheezing and rhonchi We will continue current management I discussed the plan of care with the resident and agree with the above history and physical and assessment/plan by the resident.
--- NOTE | 2017-04-07 13:00 | CARD ---
APPROVED REPORT EKG Measurement Heart [id number] <Conclusion> Sinus tachycardia Otherwise normal ECG
[2017-04-07] MEDS: Betamethasone Valerate 0.1% Lotion (60 ml) TOP SCH (21:36)
[2017-04-07] MEDS: Ammonium Lactate 12% Lotion (225 g) EXT SCH (21:36)
[2017-04-08] MEDS: Albuterol-Ipratrop 3 mg / 0.5 (3 ml) UD INH SCH ×6 (03:12→23:56)
[2017-04-08] MEDS: MethylPREDNISolone 40 mg Vial IVP SCH ×3 (05:15→21:33)
[2017-04-08] MEDS ORDERED: (Novolin R) Insulin Human Regular 100 units/ml vial SC SCH (07:41)
--- NOTE | 2017-04-08 07:43 | CP.PCM.PN ---
<Betsy Catherine - Last Filed: 04/08/17 16:05> Subjective - Date & Time of Evaluation Date of Evaluation: 04/08/17 Time of Evaluation: 07:42 - Subjective Subjective: Patient seen and examined at bedside. Patient states he feels his condition has slightly improved and his chest feels less tight. He notes he is expectorating a significant amount of phlegm that is green in color. Patient still notes considerable wheezing and cough. He denies fever and chills, chest pain, palpitations, nausea, vomiting, abdominal pain, diarrhea and constipation. Patient reports his psoriasis is less pruritic and the Lachydrin lotion is soothing. Objective - Vital Signs/Intake and Output Vital Signs (last 24 hours): Temp Pulse Resp BP Pulse Ox 97.7 F 84 20 165/73 H 98 04/08/17 00:12 04/08/17 00:12 04/08/17 00:12 04/08/17 00:12 04/08/17 00:12 Intake and Output: 04/08/17 04/08/17 06:59 18:59 Intake Total 320 Balance 320 - Medications Medications: Current Medications Albuterol Sulfate (Albuterol 0.042% Inhal Deepa (1.25mg/3ml) Ud) 1.25 mg INH RQ3 PRN PRN Reason: Wheezing Albuterol/Ipratropium (Duoneb 3 Mg/0.5 Mg (3 Ml) Ud) 3 ml INH RQ4 [facility] Last Admin: 04/08/17 03:12 Dose: 3 ml Amlodipine Besylate (Norvasc) 5 mg PO DAILY [facility] Azithromycin (Zithromax) 250 mg PO DAILY [facility] Last Admin: 04/07/17 10:03 Dose: 250 mg Betamethasone Valerate (Betamethasone Valerate 0.1%) 0 ml TOP BID [facility] Last Admin: 04/07/17 21:36 Dose: 60 ml Budesonide (Pulmicort Respules) 0.5 mg INH RQ12 [facility] Last Admin: 04/07/17 08:57 Dose: 0.5 mg Ergocalciferol (Drisdol 50,000 Intl Units Cap) 1 cap PO Q7D [facility] Last Admin: 04/05/17 14:57 Dose: 1 cap Famotidine (Pepcid) 20 mg PO BID [facility] Last Admin: 04/07/17 17:22 Dose: 20 mg Insulin Human Regular (Novolin R) 0 unit SC ACHS [facility] PRN Reason: Protocol Lactic Acid (Lac-Hydrin 12% Lotion (225 G)) 0 gm EXT BID [facility] Last Admin: 04/07/17 21:36 Dose: 1 applic Lisinopril (Zestril) 5 mg PO DAILY [facility] Metformin HCl (Glucophage) 500 mg PO BID [facility] Last Admin: 04/07/17 17:22 Dose: 500 mg Methylprednisolone (Solu-Medrol) 40 mg IVP Q8 [facility] Last Admin: 04/08/17 05:15 Dose: 40 mg - Labs Labs: 04/07/17 07:15 04/07/17 07:15 PT 13.3 SECONDS (9.7-12.2) H 04/04/17 18:46 INR 1.2 04/04/17 18:46 APTT 40 SECONDS (21-34) H 04/04/17 18:46 - Constitutional Appears: Non-toxic, No Acute Distress - Head Exam Head Exam: ATRAUMATIC, NORMAL INSPECTION, NORMOCEPHALIC - Eye Exam Eye Exam: EOMI, Normal appearance, PERRL - ENT Exam ENT Exam: Mucous Membranes Moist - Neck Exam Neck Exam: Full ROM. absent: Tenderness - Respiratory Exam Respiratory Exam: Wheezes. absent: Clear to Ausculation Bilateral Additional comments: significant cough induced with deep inspiration - Cardiovascular Exam Cardiovascular Exam: +S1, +S2. absent: Bradycardia, Tachycardia - GI/Abdominal Exam GI & Abdominal Exam: Soft, Normal Bowel Sounds. absent: Firm, Guarding, Rigid, Tenderness - Extremities Exam Extremities Exam: absent: Pedal Edema, Tenderness - Neurological Exam Neurological Exam: Alert, Awake, Oriented x3 - Psychiatric Exam Psychiatric exam: Normal Affect, Normal Mood - Skin Additional comments: diffuse scaly plaques to bilateral lower extremities. Well demarcated scaly plaques located diffusely to trunk and upper extremities. Assessment and Plan - Assessment and Plan (Free Text) Assessment: COPD exacerbation Patient continues to have significant wheezing f/u sputum culture Chest CT w/o contrast: There are atelectatic/scarring changes both lung bases including on the lingular and middle lobe regions. Central lobular emphysematous changes with upper lobe predominance. There are also small bulla and/or of large bleb changes in the right lung apex and to a lesser degree left and at anterior upper lung field. Small calcific granuloma left lobe apex. Small nodule lateral aspect left upper lobe and another in the right lower lobe. Followup CT scan 3 months could be performed to assess stability. In situ IVC filter. (see full report) CXR- 04/04/17- Vague patchy opacity seen in the right lung base could represent atelectasis vs developing infiltrate. Minimal left basilar atelectasis. 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 Prophylactic Measures Pepcid 20 mg po BID Held Heparin due to hx of retroperitoneal bleed <Jerry Elise - Last Filed: 04/08/17 16:14> Objective - Vital Signs/Intake and Output Vital Signs (last 24 hours): Temp Pulse Resp BP Pulse Ox 97.6 F 71 20 162/78 H 97 04/08/17 08:11 04/08/17 08:11 04/08/17 08:11 04/08/17 08:11 04/08/17 08:11 Intake and Output: 04/08/17 04/08/17 06:59 18:59 Intake Total 320 485 Balance 320 485 - Medications Medications: Current Medications Albuterol/Ipratropium (Duoneb 3 Mg/0.5 Mg (3 Ml) Ud) 3 ml INH RQ4 [facility] Last Admin: 04/08/17 15:56 Dose: 3 ml Amlodipine Besylate (Norvasc) 5 mg PO DAILY [facility] Last Admin: 04/08/17 09:51 Dose: 5 mg Azithromycin (Zithromax) 250 mg PO DAILY [facility] Last Admin: 04/08/17 09:51 Dose: 250 mg Betamethasone Valerate (Betamethasone Valerate 0.1%) 0 ml TOP BID [facility] Last Admin: 04/08/17 09:52 Dose: 60 ml Budesonide (Pulmicort Respules) 0.5 mg INH RQ12 [facility] Last Admin: 04/08/17 07:57 Dose: 0.5 mg Ergocalciferol (Drisdol 50,000 Intl Units Cap) 1 cap PO Q7D [facility] Last Admin: 04/05/17 14:57 Dose: 1 cap Famotidine (Pepcid) 20 mg PO BID [facility] Last Admin: 04/08/17 09:51 Dose: 20 mg Guaifenesin/Dextromethorphan (Robitussin Dm) 10 ml PO Q4H [facility] PRN Reason: Cough and congestion Moxifloxacin HCl (Avelox Iv 400mg/250ml Ns) 400 mg in 250 mls @ 167 mls/hr IVPB Q24H [facility] Insulin Human Regular (Novolin R) 0 unit SC ACHS [facility] PRN Reason: Protocol Last Admin: 04/08/17 12:30 Dose: 6 unit Lactic Acid (Lac-Hydrin 12% Lotion (225 G)) 0 gm EXT BID [facility] Last Admin: 04/08/17 09:51 Dose: 1 applic Lisinopril (Zestril) 5 mg PO DAILY [facility] Last Admin: 04/08/17 09:51 Dose: 5 mg Metformin HCl (Glucophage) 500 mg PO BID [facility] Last Admin: 04/08/17 09:51 Dose: 500 mg Methylprednisolone (Solu-Medrol) 40 mg IVP Q8 [facility] Last Admin: 04/08/17 13:24 Dose: 40 mg - Labs Labs: 04/08/17 08:30 04/08/17 08:30 PT 13.3 SECONDS (9.7-12.2) H 04/04/17 18:46 INR 1.2 04/04/17 18:46 APTT 40 SECONDS (21-34) H 04/04/17 18:46 Attending/Attestation - Attestation I have personally seen and examined this patient.: Yes I have fully participated in the care of the patient.: Yes I have reviewed all pertinent clinical information, including history, physical exam and plan: Yes Notes (Text): 04/08/17 16:12 Patient seen and examined at bedside with the resident On auscultation of the lungs patient still has significant wheezing and rhonchi We will start the patient on IV antibiotics Continue current management I discussed the plan of care with the resident and I agree with the history and physical and assessment/plan by the resident.
[2017-04-08] MEDS: Budesonide 0.5 mg/2 ml Inhal Susp UD INH SCH ×2 (07:57→20:56)
[2017-04-08] MEDS: (Novolin R) Insulin Human Regular 100 units/ml vial SC SCH ×4 (08:22→21:49)
[2017-04-08 08:35] LABS: BASO % 0.2 % (0.0-2.0); HEMATOCRIT 35.2 % (35.0-51.0); LYMPH # 0.8 K/uL (1.0-4.3); LYMPH % 7.5 % (20.0-40.0); MEAN CELL VOLUME 86.1 fL (80.0-94.0); MEAN CORPUSCULAR HEMOGLOBIN 28.6 pg (27.0-31.0); MEAN CORPUSCULAR HGB CONC 33.2 g/dL (33.0-37.0); MEAN PLATELET VOLUME 8.2 fL (7.2-11.7); MONO # 0.4 K/uL (0.0-0.8); PLATELET COUNT 263 K/uL (130-400); WHITE BLOOD COUNT 10.9 K/uL (4.8-10.8)
[2017-04-08 09:05] LABS: CHLORIDE 98 mmol/L (98-107); POTASSIUM 3.8 mmol/L (3.6-5.2); SODIUM 136 mmol/L (132-148)
[2017-04-08 09:06] LABS: GFR AFRICAN-AMERICAN > 60
[2017-04-08 09:07] LABS: ALB/GLOB RATIO 1.1 (1.0-2.1); ALKALINE PHOSPHATASE 48 U/L (38-126); ALT/SGPT 18 U/L (21-72); AST/SGOT 23 U/L (17-59); BILIRUBIN,TOTAL 0.4 mg/dL (0.2-1.3); BLOOD UREA NITROGEN 24 mg/dL (9-20); CALCIUM 8.6 mg/dl (8.6-10.4); CARBON DIOXIDE 28 mmol/L (22-30); GLUCOSE,RANDOM 199 mg/dL (75-110); PHOSPHOROUS 3.4 mg/dL (2.5-4.5); TOTAL PROTEIN 6.5 g/dL (6.3-8.3)
[2017-04-08 09:08] LABS: MAGNESIUM 1.6 mg/dL (1.6-2.3)
[2017-04-08 09:30] LABS: GIANT PLATELETS PRESENT; LARGE PLATELETS PRESENT; NEUTROPHIL 84 % (50-75); TOTAL CELLS COUNTED 100
[2017-04-08] MEDS: Ammonium Lactate 12% Lotion (225 g) EXT SCH ×2 (09:51→17:32)
[2017-04-08] MEDS: Betamethasone Valerate 0.1% Lotion (60 ml) TOP SCH ×2 (09:52→17:32)
[2017-04-08] MEDS: guaiFENesin DM 200 mg-20 mg/10 ml UD PO PRN ×2 (17:30→21:33)
[2017-04-08] MEDS: Moxifloxacin IV 400mg/250ml NS 400 MG/250 ML BAG IVPB SCH (18:17)
[2017-04-09] MEDS: Albuterol-Ipratrop 3 mg / 0.5 (3 ml) UD INH SCH ×6 (03:34→23:38)
[2017-04-09] MEDS: MethylPREDNISolone 40 mg Vial IVP SCH ×3 (05:35→21:32)
[2017-04-09] MEDS: guaiFENesin DM 200 mg-20 mg/10 ml UD PO PRN ×3 (05:37→21:41)
[2017-04-09] MEDS: Budesonide 0.5 mg/2 ml Inhal Susp UD INH SCH ×2 (07:49→19:15)
[2017-04-09 08:09] LABS: BASO % 0.1 % (0.0-2.0); HEMATOCRIT 37.7 % (35.0-51.0); LYMPH % 9.3 % (20.0-40.0); MEAN CELL VOLUME 86.6 fL (80.0-94.0); MEAN CORPUSCULAR HEMOGLOBIN 28.5 pg (27.0-31.0); MEAN CORPUSCULAR HGB CONC 32.9 g/dL (33.0-37.0); MEAN PLATELET VOLUME 8.4 fL (7.2-11.7); MONO # 0.8 K/uL (0.0-0.8); MONO % 7.2 % (0.0-10.0); NRBC % 0.2 % (0.0-2.0); PLATELET COUNT 276 K/uL (130-400); RED CELL DISTRIBUTION WIDTH 15.9 % (11.5-14.5); WHITE BLOOD COUNT 10.8 K/uL (4.8-10.8)
[2017-04-09 08:27] LABS: CHLORIDE 97 mmol/L (98-107); POTASSIUM 3.9 mmol/L (3.6-5.2); SODIUM 136 mmol/L (132-148)
[2017-04-09 08:29] LABS: AST/SGOT 20 U/L (17-59); BILIRUBIN,TOTAL 0.4 mg/dL (0.2-1.3); CARBON DIOXIDE 29 mmol/L (22-30); GFR AFRICAN-AMERICAN > 60
[2017-04-09 08:30] LABS: ALB/GLOB RATIO 1.1 (1.0-2.1); ALKALINE PHOSPHATASE 50 U/L (38-126); ALT/SGPT 19 U/L (21-72); BLOOD UREA NITROGEN 28 mg/dL (9-20); CALCIUM 8.7 mg/dl (8.6-10.4); GLUCOSE,RANDOM 295 mg/dL (75-110); PHOSPHOROUS 3.2 mg/dL (2.5-4.5); TOTAL PROTEIN 6.3 g/dL (6.3-8.3)
[2017-04-09 08:31] LABS: MAGNESIUM 1.4 mg/dL (1.6-2.3)
[2017-04-09 09:59] LABS: NEUTROPHIL 87 % (50-75); REACTIVE LYMPHOCYTES 1 % (0-0); TOTAL CELLS COUNTED 100
[2017-04-09 10:01] LABS: LARGE PLATELETS PRESENT
[2017-04-09] MEDS: (Novolin R) Insulin Human Regular 100 units/ml vial SC SCH ×4 (10:01→21:31)
[2017-04-09] MEDS: Betamethasone Valerate 0.1% Lotion (60 ml) TOP SCH ×2 (10:05→17:10)
[2017-04-09] MEDS: Ammonium Lactate 12% Lotion (225 g) EXT SCH ×2 (10:05→17:11)
[2017-04-09] MEDS: Magnesium Sulfate 1 gm in D5W 1 GM/100 ML BAG IVPB SCH ×2 (10:49→12:42)
--- NOTE | 2017-04-09 13:50 | RAD ---
HISTORY: Shortness of breath COMPARISON: 04/04/2017. FINDINGS: LUNGS: The lungs are clear. PLEURA: No significant pleural effusion identified, no pneumothorax apparent. CARDIOVASCULAR: Normal. OSSEOUS STRUCTURES: No significant abnormalities. VISUALIZED UPPER ABDOMEN: Normal. OTHER FINDINGS: None. IMPRESSION: No active pulmonary disease.
[2017-04-09 15:35] LABS: RBC URINE 1 /hpf (0-3); URINE BILIRUBIN NEGATIVE (NEGATIVE); URINE BLOOD NEGATIVE (NEGATIVE); URINE COLOR Straw (YELLOW); URINE GLUCOSE (UA) 3+ mg/dL (Normal); URINE KETONE NEGATIVE (NEGATIVE); URINE LEUKOCYTE ESTERASE NEG Leu/uL (Negative); URINE PROTEIN NEGATIVE (NEGATIVE); URINE UROBILINOGEN NORMAL mg/dL (0.2-1.0); WBC URINE 1 /hpf (0-5)
[2017-04-09] MEDS: Saccharomyces Boulardi 250 mg Cap PO SCH (17:11)
[2017-04-09] MEDS: Moxifloxacin IV 400mg/250ml NS 400 MG/250 ML BAG IVPB SCH (17:13)
[2017-04-09] MEDS ORDERED: (Lantus) Insulin Glargine, Recombinant SC SCH (22:00)
[2017-04-10] MEDS: Albuterol-Ipratrop 3 mg / 0.5 (3 ml) UD INH SCH ×4 (03:09→16:31)
--- NOTE | 2017-04-10 05:45 | CP.PCM.PN ---
<Dylan Catherineelle - Last Filed: 04/10/17 12:50> Subjective - Date & Time of Evaluation Date of Evaluation: 04/10/17 Time of Evaluation: 05:44 - Subjective Subjective: The patient was seen and examined at bedside. Today the patient states that his symptoms are mildly improved. He is still complaining of a persistent productive cough, significant sputum production, and intermittent shortness of breath. He states that he still requires oxygen intermittently when he gets short of breath and that he did not sleep well last night due to his symptoms and his hospital room mate groaning. Generally, however, the patient appears to be doing better. He is coughing much less frequently and his wheezing has drastically reduced. Objective - Vital Signs/Intake and Output Vital Signs (last 24 hours): Temp Pulse Resp BP Pulse Ox 97.7 F 88 20 138/71 96 04/10/17 00:07 04/10/17 00:07 04/10/17 00:07 04/10/17 00:07 04/10/17 00:07 Intake and Output: 04/09/17 04/10/17 18:59 06:59 Intake Total 300 Balance 300 - Medications Medications: Current Medications Albuterol/Ipratropium (Duoneb 3 Mg/0.5 Mg (3 Ml) Ud) 3 ml INH RQ4 [facility] Last Admin: 04/10/17 03:09 Dose: 3 ml Amlodipine Besylate (Norvasc) 5 mg PO DAILY [facility] Last Admin: 04/09/17 10:02 Dose: 5 mg Azithromycin (Zithromax) 250 mg PO DAILY [facility] Last Admin: 04/09/17 10:02 Dose: 250 mg Betamethasone Valerate (Betamethasone Valerate 0.1%) 0 ml TOP BID [facility] Last Admin: 04/09/17 17:10 Dose: 60 ml Budesonide (Pulmicort Respules) 0.5 mg INH RQ12 [facility] Last Admin: 04/09/17 19:15 Dose: 0.5 mg Ergocalciferol (Drisdol 50,000 Intl Units Cap) 1 cap PO Q7D [facility] Last Admin: 04/05/17 14:57 Dose: 1 cap Famotidine (Pepcid) 20 mg PO BID [facility] Last Admin: 04/09/17 17:11 Dose: 20 mg Guaifenesin/Dextromethorphan (Robitussin Dm) 10 ml PO Q4H PRN PRN Reason: Cough and congestion Last Admin: 04/09/17 21:41 Dose: 10 ml Moxifloxacin HCl (Avelox Iv 400mg/250ml Ns) 400 mg in 250 mls @ 167 mls/hr IVPB Q24H [facility] Last Admin: 04/09/17 17:13 Dose: 167 mls/hr Insulin Glargine (Lantus) 10 unit SC HS [facility] Last Admin: 04/09/17 21:31 Dose: 10 u Insulin Human Regular (Novolin R) 0 unit SC ACHS [facility] PRN Reason: Protocol Last Admin: 04/09/17 21:31 Dose: Not Given Lactic Acid (Lac-Hydrin 12% Lotion (225 G)) 0 gm EXT BID [facility] Last Admin: 04/09/17 17:11 Dose: 1 applic Lisinopril (Zestril) 5 mg PO DAILY [facility] Last Admin: 04/09/17 10:02 Dose: 5 mg Metformin HCl (Glucophage) 500 mg PO BID [facility] Last Admin: 04/09/17 17:12 Dose: 500 mg Methylprednisolone (Solu-Medrol) 40 mg IVP Q8 [facility] Last Admin: 04/09/17 21:32 Dose: 40 mg Saccharomyces Boulardii (Florastor) 250 mg PO BID [facility] Last Admin: 04/09/17 17:11 Dose: 250 mg - Labs Labs: 04/09/17 07:49 04/09/17 07:49 PT 13.3 SECONDS (9.7-12.2) H 04/04/17 18:46 INR 1.2 04/04/17 18:46 APTT 40 SECONDS (21-34) H 04/04/17 18:46 - Constitutional Appears: Non-toxic, No Acute Distress - Head Exam Head Exam: ATRAUMATIC, NORMOCEPHALIC - Eye Exam Eye Exam: EOMI, PERRL - ENT Exam ENT Exam: Mucous Membranes Moist - Neck Exam Neck Exam: Normal Inspection - Respiratory Exam Respiratory Exam: Decreased Breath Sounds, Wheezes, NORMAL BREATHING PATTERN. absent: Clear to Ausculation Bilateral - Cardiovascular Exam Cardiovascular Exam: RRR, +S1, +S2. absent: Bradycardia, Tachycardia - GI/Abdominal Exam GI & Abdominal Exam: Soft, Normal Bowel Sounds. absent: Distended, Tenderness - Extremities Exam Extremities Exam: Normal Inspection. absent: Pedal Edema, Tenderness - Neurological Exam Neurological Exam: Alert, Awake, CN II-XII Intact, Oriented x3 - Psychiatric Exam Psychiatric exam: Normal Affect, Normal Mood - Skin Additional comments: Erythematous plaques with silvery scales Assessment and Plan - Assessment and Plan (Free Text) Assessment: COPD exacerbation Patient continues to have significant wheezing sputum culture: E. coli Chest CT w/o contrast: There are atelectatic/scarring changes both lung bases including on the lingular and middle lobe regions. Central lobular emphysematous changes with upper lobe predominance. There are also small bulla and/or of large bleb changes in the right lung apex and to a lesser degree left and at anterior upper lung field. Small calcific granuloma left lobe apex. Small nodule lateral aspect left upper lobe and another in the right lower lobe. Followup CT scan 3 months could be performed to assess stability. In situ IVC filter. (see full report) CXR- 04/04/17- Vague patchy opacity seen in the right lung base could represent atelectasis vs developing infiltrate. Minimal left basilar atelectasis. 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 Prophylactic Measures Pepcid 20 mg po BID Held Heparin due to hx of retroperitoneal bleed <Arik,Jerry M - Last Filed: 04/10/17 15:40> Objective - Vital Signs/Intake and Output Vital Signs (last 24 hours): Temp Pulse Resp BP Pulse Ox 97.7 F 85 20 156/78 H 98 04/10/17 15:19 04/10/17 15:19 04/10/17 15:19 04/10/17 15:19 04/10/17 15:19 Intake and Output: 04/10/17 04/10/17 06:59 18:59 Intake Total 420 Balance 420 - Medications Medications: Current Medications Albuterol/Ipratropium (Duoneb 3 Mg/0.5 Mg (3 Ml) Ud) 3 ml INH RQ4 [facility] Last Admin: 04/10/17 11:18 Dose: 3 ml Amlodipine Besylate (Norvasc) 5 mg PO DAILY [facility] Last Admin: 04/10/17 09:05 Dose: 5 mg Azithromycin (Zithromax) 250 mg PO DAILY [facility] Last Admin: 04/10/17 09:05 Dose: 250 mg Betamethasone Valerate (Betamethasone Valerate 0.1%) 0 ml TOP BID [facility] Last Admin: 04/10/17 12:01 Dose: 60 ml Budesonide (Pulmicort Respules) 0.5 mg INH RQ12 [facility] Last Admin: 04/10/17 07:27 Dose: 0.5 mg Ergocalciferol (Drisdol 50,000 Intl Units Cap) 1 cap PO Q7D [facility] Last Admin: 04/05/17 14:57 Dose: 1 cap Famotidine (Pepcid) 20 mg PO BID [facility] Last Admin: 04/10/17 09:05 Dose: 20 mg Fluconazole (Diflucan) 200 mg PO DAILY [facility] Guaifenesin/Dextromethorphan (Robitussin Dm) 10 ml PO Q4H PRN PRN Reason: Cough and congestion Last Admin: 04/09/17 21:41 Dose: 10 ml Imipenem/Cilastatin Sodium 500 (mg/ Sodium Chloride) 100 mls @ 100 mls/hr IVPB Q6 [facility] Insulin Glargine (Lantus) 10 unit SC BID [facility] Last Admin: 04/10/17 12:01 Dose: 10 unit Insulin Human Regular (Novolin R) 0 unit SC ACHS [facility] PRN Reason: Protocol Last Admin: 04/10/17 12:01 Dose: 8 unit Lactic Acid (Lac-Hydrin 12% Lotion (225 G)) 0 gm EXT BID [facility] Last Admin: 04/10/17 12:00 Dose: 1 applic Lisinopril (Zestril) 5 mg PO DAILY [facility] Last Admin: 04/10/17 09:05 Dose: 5 mg Metformin HCl (Glucophage) 500 mg PO BID [facility] Last Admin: 04/10/17 09:05 Dose: 500 mg Methylprednisolone (Solu-Medrol) 40 mg IVP Q8 [facility] Last Admin: 04/10/17 13:27 Dose: 40 mg Saccharomyces Boulardii (Florastor) 250 mg PO BID [facility] Last Admin: 04/10/17 09:05 Dose: 250 mg - Labs Labs: 04/10/17 07:51 04/10/17 07:51 PT 13.3 SECONDS (9.7-12.2) H 04/04/17 18:46 INR 1.2 04/04/17 18:46 APTT 40 SECONDS (21-34) H 04/04/17 18:46 Attending/Attestation - Attestation I have personally seen and examined this patient.: Yes I have fully participated in the care of the patient.: Yes I have reviewed all pertinent clinical information, including history, physical exam and plan: Yes Notes (Text): 04/10/17 15:39 Patient was seen and examined at bedside with the resident Still has cough and expectoration Sputum culture noted. We will stop Avelox start patient on imipenem We will also request infectious disease consultation We'll place the patient in isolation I discussed the plan of care with the resident and agree with the above history and physical and assessment by the resident.
[2017-04-10] MEDS: MethylPREDNISolone 40 mg Vial IVP SCH ×3 (05:51→22:45)
[2017-04-10] MEDS: Budesonide 0.5 mg/2 ml Inhal Susp UD INH SCH ×2 (07:27→20:42)
[2017-04-10 07:58] LABS: HEMATOCRIT 37.2 % (35.0-51.0); LYMPH # 1.1 K/uL (1.0-4.3); LYMPH % 9.8 % (20.0-40.0); MEAN CELL VOLUME 85.6 fL (80.0-94.0); MEAN CORPUSCULAR HEMOGLOBIN 27.8 pg (27.0-31.0); MEAN CORPUSCULAR HGB CONC 32.4 g/dL (33.0-37.0); MEAN PLATELET VOLUME 8.3 fL (7.2-11.7); MONO % 9.2 % (0.0-10.0); NRBC % 0.4 % (0.0-2.0); PLATELET COUNT 294 K/uL (130-400); RED CELL DISTRIBUTION WIDTH 15.6 % (11.5-14.5); WHITE BLOOD COUNT 11.1 K/uL (4.8-10.8)
[2017-04-10 08:03] LABS: CHLORIDE 98 mmol/L (98-107)
[2017-04-10 08:04] LABS: SODIUM 136 mmol/L (132-148)
[2017-04-10 08:06] LABS: BILIRUBIN,TOTAL 0.4 mg/dL (0.2-1.3); GFR AFRICAN-AMERICAN > 60
[2017-04-10 08:07] LABS: ALB/GLOB RATIO 1.1 (1.0-2.1); ALKALINE PHOSPHATASE 43 U/L (38-126); ALT/SGPT 18 U/L (21-72); AST/SGOT 14 U/L (17-59); BLOOD UREA NITROGEN 30 mg/dL (9-20); CALCIUM 8.2 mg/dl (8.6-10.4); CARBON DIOXIDE 29 mmol/L (22-30); GLUCOSE,RANDOM 294 mg/dL (75-110); PHOSPHOROUS 3.6 mg/dL (2.5-4.5)
[2017-04-10 08:08] LABS: MAGNESIUM 1.6 mg/dL (1.6-2.3)
[2017-04-10] MEDS: (Novolin R) Insulin Human Regular 100 units/ml vial SC SCH ×4 (09:04→22:45)
[2017-04-10] MEDS: Saccharomyces Boulardi 250 mg Cap PO SCH ×2 (09:05→18:41)
[2017-04-10 10:34] LABS: NEUTROPHIL 83 % (50-75); NUCLEATED RED BLOOD CELL 1 % (0-0); TOTAL CELLS COUNTED 100
[2017-04-10] MEDS: Ammonium Lactate 12% Lotion (225 g) EXT SCH ×2 (12:00→18:42)
[2017-04-10] MEDS: (Lantus) Insulin Glargine, Recombinant SC SCH ×2 (12:01→18:41)
[2017-04-10] MEDS: Betamethasone Valerate 0.1% Lotion (60 ml) TOP SCH ×2 (12:01→18:42)
--- NOTE | 2017-04-10 14:32 | CP.PCM.PN ---
<SelinaBetsy henao - Last Filed: 04/10/17 14:30> Subjective - Date & Time of Evaluation Date of Evaluation: 04/09/17 Time of Evaluation: 13:25 - Subjective Subjective: Patient seen and examined at bedside. Patient states he continues to experience intermittent cough, chest pain, and shortness of breath. He states he is expectorating a significant amount of green/yellow phlegm. He denies fever and chills but admits to some fatigue. Patient is able to ambulate without issue; however, he reports requiring nasal cannula oxygen through half the day. Patient also is complaining of increased urinary frequency and dysuria. He reports two episodes of diarrhea yesterday which has since resolved. He denies chest pain but notes abdominal irritation from coughing. Objective - Vital Signs/Intake and Output Vital Signs (last 24 hours): Temp Pulse Resp BP Pulse Ox 97.7 F 87 20 149/71 99 04/10/17 13:15 04/10/17 13:15 04/10/17 13:15 04/10/17 13:15 04/10/17 13:15 Intake and Output: 04/10/17 04/10/17 06:59 18:59 Intake Total 420 Balance 420 - Medications Medications: Current Medications Albuterol/Ipratropium (Duoneb 3 Mg/0.5 Mg (3 Ml) Ud) 3 ml INH RQ4 [facility] Last Admin: 04/10/17 11:18 Dose: 3 ml Amlodipine Besylate (Norvasc) 5 mg PO DAILY [facility] Last Admin: 04/10/17 09:05 Dose: 5 mg Azithromycin (Zithromax) 250 mg PO DAILY [facility] Last Admin: 04/10/17 09:05 Dose: 250 mg Betamethasone Valerate (Betamethasone Valerate 0.1%) 0 ml TOP BID [facility] Last Admin: 04/10/17 12:01 Dose: 60 ml Budesonide (Pulmicort Respules) 0.5 mg INH RQ12 [facility] Last Admin: 04/10/17 07:27 Dose: 0.5 mg Ergocalciferol (Drisdol 50,000 Intl Units Cap) 1 cap PO Q7D [facility] Last Admin: 04/05/17 14:57 Dose: 1 cap Famotidine (Pepcid) 20 mg PO BID [facility] Last Admin: 04/10/17 09:05 Dose: 20 mg Fluconazole (Diflucan) 200 mg PO DAILY [facility] Guaifenesin/Dextromethorphan (Robitussin Dm) 10 ml PO Q4H PRN PRN Reason: Cough and congestion Last Admin: 04/09/17 21:41 Dose: 10 ml Moxifloxacin HCl (Avelox Iv 400mg/250ml Ns) 400 mg in 250 mls @ 167 mls/hr IVPB Q24H [facility] Last Admin: 04/09/17 17:13 Dose: 167 mls/hr Insulin Glargine (Lantus) 10 unit SC BID [facility] Last Admin: 04/10/17 12:01 Dose: 10 unit Insulin Human Regular (Novolin R) 0 unit SC ACHS [facility] PRN Reason: Protocol Last Admin: 04/10/17 12:01 Dose: 8 unit Lactic Acid (Lac-Hydrin 12% Lotion (225 G)) 0 gm EXT BID [facility] Last Admin: 04/10/17 12:00 Dose: 1 applic Lisinopril (Zestril) 5 mg PO DAILY [facility] Last Admin: 04/10/17 09:05 Dose: 5 mg Metformin HCl (Glucophage) 500 mg PO BID [facility] Last Admin: 04/10/17 09:05 Dose: 500 mg Methylprednisolone (Solu-Medrol) 40 mg IVP Q8 [facility] Last Admin: 04/10/17 13:27 Dose: 40 mg Saccharomyces Boulardii (Florastor) 250 mg PO BID [facility] Last Admin: 04/10/17 09:05 Dose: 250 mg - Labs Labs: 04/10/17 07:51 04/10/17 07:51 PT 13.3 SECONDS (9.7-12.2) H 04/04/17 18:46 INR 1.2 04/04/17 18:46 APTT 40 SECONDS (21-34) H 04/04/17 18:46 - Additional Findings Additional findings: - Constitutional Appears: Non-toxic, No Acute Distress - Head Exam Head Exam: ATRAUMATIC, NORMAL INSPECTION, NORMOCEPHALIC - Eye Exam Eye Exam: EOMI, Normal appearance, PERRL - ENT Exam ENT Exam: Mucous Membranes Moist - Neck Exam Neck Exam: Full ROM, Normal Inspection - Respiratory Exam Respiratory Exam: Wheezes. absent: Chest Wall Tenderness, Clear to Ausculation Bilateral - Cardiovascular Exam Cardiovascular Exam: +S1, +S2. absent: Bradycardia, Tachycardia - GI/Abdominal Exam GI & Abdominal Exam: Soft, Normal Bowel Sounds. absent: Distended, Firm, Tenderness - Extremities Exam Extremities Exam: absent: Joint Swelling, Pedal Edema, Tenderness - Back Exam Back Exam: NORMAL INSPECTION - Neurological Exam Neurological Exam: Alert, Awake, Oriented x3 - Psychiatric Exam Psychiatric exam: Normal Affect, Normal Mood - Skin Additional comments: diffuse scaly plaques to bilateral lower extremities. Well demarcated scaly plaques located diffusely to trunk and upper extremities. Assessment and Plan - Assessment and Plan (Free Text) Assessment: COPD exacerbation Patient continues to have significant wheezing sputum culture positive for gram negative rods, identification pending. f/u Repeat CXR (04/09/17) Chest CT w/o contrast: There are atelectatic/scarring changes both lung bases including on the lingular and middle lobe regions. Central lobular emphysematous changes with upper lobe predominance. There are also small bulla and/or of large bleb changes in the right lung apex and to a lesser degree left and at anterior upper lung field. Small calcific granuloma left lobe apex. Small nodule lateral aspect left upper lobe and another in the right lower lobe. Followup CT scan 3 months could be performed to assess stability. In situ IVC filter. (see full report) CXR- 04/04/17- Vague patchy opacity seen in the right lung base could represent atelectasis vs developing infiltrate. Minimal left basilar atelectasis. (Please see full report) Continue on Solumedrol 40mg IVP Q8h Continue Pulmicort 0.5 mg INH Q12h Continue Duonebs RQ4h scheduled Discontinue Albuterol 1.25 INH RQ3 prn wheezing Continue Guaifenesin/Dextromethorphan 10 ml po q4h PRN for cough Continue Zithromax 250mg PO daily Continue Avelox 400 mg IVPB Q24h ROMIs negative x 3 Dysuria f/u urinalysis and urine culture Diarrhea Start Florastor 250 mg po BID f/u c. 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 Prophylactic Measures Pepcid 20 mg po BID Held Heparin due to hx of retroperitoneal bleed <Jerry Elsie M - Last Filed: 04/10/17 15:43> Objective - Vital Signs/Intake and Output Vital Signs (last 24 hours): Temp Pulse Resp BP Pulse Ox 97.7 F 85 20 156/78 H 98 04/10/17 15:19 04/10/17 15:19 04/10/17 15:19 04/10/17 15:19 04/10/17 15:19 Intake and Output: 04/10/17 04/10/17 06:59 18:59 Intake Total 420 Balance 420 - Medications Medications: Current Medications Albuterol/Ipratropium (Duoneb 3 Mg/0.5 Mg (3 Ml) Ud) 3 ml INH RQ4 [facility] Last Admin: 04/10/17 11:18 Dose: 3 ml Amlodipine Besylate (Norvasc) 5 mg PO DAILY [facility] Last Admin: 04/10/17 09:05 Dose: 5 mg Azithromycin (Zithromax) 250 mg PO DAILY [facility] Last Admin: 04/10/17 09:05 Dose: 250 mg Betamethasone Valerate (Betamethasone Valerate 0.1%) 0 ml TOP BID [facility] Last Admin: 04/10/17 12:01 Dose: 60 ml Budesonide (Pulmicort Respules) 0.5 mg INH RQ12 [facility] Last Admin: 04/10/17 07:27 Dose: 0.5 mg Ergocalciferol (Drisdol 50,000 Intl Units Cap) 1 cap PO Q7D [facility] Last Admin: 04/05/17 14:57 Dose: 1 cap Famotidine (Pepcid) 20 mg PO BID [facility] Last Admin: 04/10/17 09:05 Dose: 20 mg Fluconazole (Diflucan) 200 mg PO DAILY [facility] Guaifenesin/Dextromethorphan (Robitussin Dm) 10 ml PO Q4H PRN PRN Reason: Cough and congestion Last Admin: 04/09/17 21:41 Dose: 10 ml Imipenem/Cilastatin Sodium 500 (mg/ Sodium Chloride) 100 mls @ 100 mls/hr IVPB Q6 [facility] Insulin Glargine (Lantus) 10 unit SC BID [facility] Last Admin: 04/10/17 12:01 Dose: 10 unit Insulin Human Regular (Novolin R) 0 unit SC ACHS [facility] PRN Reason: Protocol Last Admin: 04/10/17 12:01 Dose: 8 unit Lactic Acid (Lac-Hydrin 12% Lotion (225 G)) 0 gm EXT BID [facility] Last Admin: 04/10/17 12:00 Dose: 1 applic Lisinopril (Zestril) 5 mg PO DAILY [facility] Last Admin: 04/10/17 09:05 Dose: 5 mg Metformin HCl (Glucophage) 500 mg PO BID [facility] Last Admin: 04/10/17 09:05 Dose: 500 mg Methylprednisolone (Solu-Medrol) 40 mg IVP Q8 [facility] Last Admin: 04/10/17 13:27 Dose: 40 mg Saccharomyces Boulardii (Florastor) 250 mg PO BID [facility] Last Admin: 04/10/17 09:05 Dose: 250 mg - Labs Labs: 04/10/17 07:51 04/10/17 07:51 PT 13.3 SECONDS (9.7-12.2) H 04/04/17 18:46 INR 1.2 04/04/17 18:46 APTT 40 SECONDS (21-34) H 04/04/17 18:46 Attending/Attestation - Attestation I have personally seen and examined this patient.: Yes I have fully participated in the care of the patient.: Yes I have reviewed all pertinent clinical information, including history, physical exam and plan: Yes Notes (Text): 04/10/17 15:43 Patient was seen and examined at bedside with the resident No discussed the plan of care with the resident and with the above history and physical and assessment and plan.
--- NOTE | 2017-04-10 16:21 | CP.PCM.CON ---
History of Present Illness - History of Present Illness History of Present Illness: dictated Past Patient History - Infectious Disease Hx of Infectious Diseases: None - Tetanus Immunizations Tetanus Immunization: Unknown - Past Medical History & Family History Past Medical History?: Yes - Past Social History Smoking Status: Former Smoker - CARDIAC Hx Congestive Heart Failure: Yes - PULMONARY Hx Asthma: Yes Hx Chronic Obstructive Pulmonary Disease (COPD): Yes Hx Pneumonia: Yes Hx Pulmonary Embolism: Yes - NEUROLOGICAL Hx Neurological Disorder: No - HEENT Hx HEENT Problems: No - RENAL Hx Chronic Kidney Disease: No - ENDOCRINE/METABOLIC Hx Endocrine Disorders: No - HEMATOLOGICAL/ONCOLOGICAL Hx Human Immunodeficiency Virus (HIV): No - INTEGUMENTARY Hx Dermatological Problems: Yes (GENERALIZED SKIN RASH) - MUSCULOSKELETAL/RHEUMATOLOGICAL Hx Musculoskeletal Disorders: No Hx Falls: Yes - GASTROINTESTINAL Hx Gastrointestinal Disorders: Yes Other/Comment: GI bleeding on last admission while on anti-coagulation - GENITOURINARY/GYNECOLOGICAL Hx Genitourinary Disorders: No - PSYCHIATRIC Hx Substance Use: No - SURGICAL HISTORY Hx Surgeries: No - ANESTHESIA Hx Anesthesia: No Hx Anesthesia Reactions: No Meds Allergies/Adverse Reactions: Allergies Allergy/AdvReac Type Severity Reaction Status Date / Time No Known Allergies Allergy Verified 04/04/17 18:49 - Medications Medications: Current Medications Albuterol/Ipratropium (Duoneb 3 Mg/0.5 Mg (3 Ml) Ud) 3 ml INH RQ4 [facility] Last Admin: 04/10/17 11:18 Dose: 3 ml Amlodipine Besylate (Norvasc) 5 mg PO DAILY [facility] Last Admin: 04/10/17 09:05 Dose: 5 mg Azithromycin (Zithromax) 250 mg PO DAILY [facility] Last Admin: 04/10/17 09:05 Dose: 250 mg Betamethasone Valerate (Betamethasone Valerate 0.1%) 0 ml TOP BID [facility] Last Admin: 04/10/17 12:01 Dose: 60 ml Budesonide (Pulmicort Respules) 0.5 mg INH RQ12 [facility] Last Admin: 04/10/17 07:27 Dose: 0.5 mg Ergocalciferol (Drisdol 50,000 Intl Units Cap) 1 cap PO Q7D [facility] Last Admin: 04/05/17 14:57 Dose: 1 cap Famotidine (Pepcid) 20 mg PO BID [facility] Last Admin: 04/10/17 09:05 Dose: 20 mg Fluconazole (Diflucan) 200 mg PO DAILY [facility] Guaifenesin/Dextromethorphan (Robitussin Dm) 10 ml PO Q4H PRN PRN Reason: Cough and congestion Last Admin: 04/09/17 21:41 Dose: 10 ml Imipenem/Cilastatin Sodium 500 (mg/ Sodium Chloride) 100 mls @ 100 mls/hr IVPB Q6 [facility] Insulin Glargine (Lantus) 10 unit SC BID [facility] Last Admin: 04/10/17 12:01 Dose: 10 unit Insulin Human Regular (Novolin R) 0 unit SC ACHS [facility] PRN Reason: Protocol Last Admin: 04/10/17 12:01 Dose: 8 unit Lactic Acid (Lac-Hydrin 12% Lotion (225 G)) 0 gm EXT BID [facility] Last Admin: 04/10/17 12:00 Dose: 1 applic Lisinopril (Zestril) 5 mg PO DAILY [facility] Last Admin: 04/10/17 09:05 Dose: 5 mg Metformin HCl (Glucophage) 500 mg PO BID [facility] Last Admin: 04/10/17 09:05 Dose: 500 mg Methylprednisolone (Solu-Medrol) 40 mg IVP Q8 [facility] Last Admin: 04/10/17 13:27 Dose: 40 mg Saccharomyces Boulardii (Florastor) 250 mg PO BID [facility] Last Admin: 04/10/17 09:05 Dose: 250 mg Results - Vital Signs Recent Vital Signs: Last Vital Signs Temp 97.7 F 04/10/17 15:19 Pulse 85 04/10/17 15:19 Resp 20 04/10/17 15:19 BP 156/78 H 04/10/17 15:19 Pulse Ox 98 04/10/17 15:19 - Labs Result Diagrams: 04/10/17 07:51 04/10/17 07:51 Labs: Laboratory Results - last 24 hr 04/09/17 04/09/17 04/09/17 13:35 16:17 21:22 WBC RBC Hgb Hct MCV MCH MCHC RDW Plt Count MPV Neut % (Auto) Lymph % (Auto) Ashley % (Auto) Eos % (Auto) Baso % (Auto) Neut # Lymph # Ashley # Eos # Baso # Neutrophils % (Manual) Lymphocytes % (Manual) Monocytes % (Manual) Nucleated RBC % Platelet Estimate Poikilocytosis (manual Anisocytosis (manual) Sodium Potassium Chloride Carbon Dioxide Anion Gap BUN Creatinine Est GFR ( Amer) Est GFR (Non-Af Amer) POC Glucose (mg/dL) 253 H 137 H Random Glucose Calcium Phosphorus Magnesium Total Bilirubin AST ALT Alkaline Phosphatase Total Protein Albumin Globulin Albumin/Globulin Ratio C. difficile Ag & Toxin Negative 04/10/17 04/10/17 04/10/17 07:17 07:51 07:51 WBC 11.1 H RBC 4.34 L Hgb 12.1 Hct 37.2 MCV 85.6 MCH 27.8 MCHC 32.4 L RDW 15.6 H Plt Count 294 MPV 8.3 Neut % (Auto) 81.0 H Lymph % (Auto) 9.8 L Ashley % (Auto) 9.2 Eos % (Auto) 0.0 Baso % (Auto) 0.0 Neut # 9.0 H Lymph # 1.1 Ashley # 1.0 H Eos # 0.0 Baso # 0.0 Neutrophils % (Manual) 83 H Lymphocytes % (Manual) 10 L Monocytes % (Manual) 7 Nucleated RBC % 1 H Platelet Estimate Normal Poikilocytosis (manual Slight Anisocytosis (manual) Slight Sodium 136 Potassium 4.0 Chloride 98 Carbon Dioxide 29 Anion Gap 13 BUN 30 H Creatinine 1.0 Est GFR ( Amer) > 60 Est GFR (Non-Af Amer) > 60 POC Glucose (mg/dL) 304 H Random Glucose 294 H Calcium 8.2 L Phosphorus 3.6 Magnesium 1.6 Total Bilirubin 0.4 AST 14 L D ALT 18 L Alkaline Phosphatase 43 Total Protein 6.0 L Albumin 3.2 L Globulin 2.8 Albumin/Globulin Ratio 1.1 C. difficile Ag & Toxin 04/10/17 11:18 WBC RBC Hgb Hct MCV MCH MCHC RDW Plt Count MPV Neut % (Auto) Lymph % (Auto) Ashley % (Auto) Eos % (Auto) Baso % (Auto) Neut # Lymph # Ashley # Eos # Baso # Neutrophils % (Manual) Lymphocytes % (Manual) Monocytes % (Manual) Nucleated RBC % Platelet Estimate Poikilocytosis (manual Anisocytosis (manual) Sodium Potassium Chloride Carbon Dioxide Anion Gap BUN Creatinine Est GFR ( Amer) Est GFR (Non-Af Amer) POC Glucose (mg/dL) 306 H Random Glucose Calcium Phosphorus Magnesium Total Bilirubin AST ALT Alkaline Phosphatase Total Protein Albumin Globulin Albumin/Globulin Ratio C. difficile Ag & Toxin
--- NOTE | 2017-04-10 17:19 | CON ---
DATE: 04/10/2017 REQUESTING PHYSICIAN: Dr. Elise. HISTORY OF PRESENT ILLNESS: This patient is a 66-year-old male. He has history of COPD, hypertensio n. He says he suffers from emphysema. Also a history of pulmonary embolism and came in with shortne ss of breath and he has a productive cough, he says, for 2 weeks. Yellowish and green. Denies any f ever, chills, nausea or vomiting. He does give history of having TB in the past and he says he was t reated in [facility] a few years ago. PAST MEDICAL HISTORY: COPD, diabetes mellitus, hypertension, asthma, pulmonary embolism. He has a fi lter. He also has a history of psoriasis and retroperitoneal hematoma. ALLERGIES: He is not allergic to any medicine. PAST SURGICAL HISTORY: None. FAMILY HISTORY: Unremarkable. SOCIAL HISTORY: He has 30 pack years. He quit 1 year ago and drinks alcohol socially. Denies any brisa g abuse. He stays at a friend's house during the week, but in the long-term. He goes to the long-term d [employer] for meals and he does not have any insurance. He says he is working for it and should get it soon. REVIEW OF SYSTEMS: He is admitted here and I am asked to see him because of his abnormal cultures. He has no fever, no chills. He came in with phlegm and cough and complains of mild difficulty swallo wing. He did have some chest pain at rest and leg edema and has no abdominal pain, no nausea, no vom iting. He does complain of change in urinary stream and difficulty denies any, but he says he has a urine infection at this time. We will evaluate that. He has history of asthma, COPD, pneumonia , embolism. He denies HIV. PHYSICAL EXAMINATION: VITAL SIGNS: I find his temperature is 97.7, pulse is 85, blood pressure 156/78, respirations are 20 . GENERAL: He is alert, awake, oriented x 3, able to give his history. HEENT: Unremarkable. Head is atraumatic, normocephalic. Pupils are reacting to light. Tongue is m oist. NECK: Supple. JUAREZ is flat. LUNGS: Have bilateral expiratory wheeze. Occasional rhonchi. HEART: S1, S2 are regular. No murmurs appreciated. ABDOMEN: Soft, nontender, no guarding, no rigidity present. SKIN: Dry and intact. He has multiple patches of psoriasis and dry skin on his trunk and all over h is extremities. LABORATORY DATA: Noted. Labs show white count is 11.1 today, hemoglobin 12.1, hematocrit 37.2, plat elet count is 294. Sodium is 136, potassium 4, chloride 98, CO2 is 29, anion gap is 13, BUN is 30, c reatinine is 1.0. Had a urine culture, which is negative. Sputum, however, has ESBL E. coli, which i s imipenem sensitive. He also had a chest CT. The chest CT shows atelectasis, scarring in both lung steen, including the lingula and middle lobe region, center lobular emphysematous changes with uppe r lobe predominant. There are also small bullae and large bullous changes in the right lung apex and aspect, left and anterior upper lung, small calcific granuloma in the left apex, small nodule i n lateral aspect, left upper lobe and another in the right low. ASSESSMENT AND PLAN: Followup CT scan in 3 months is recommended, which I told him, and he has in si tu inferior vena cava filter. So at this time, this patient is admitted with acute exacerbation of ch ronic obstructive pulmonary disease, has emphysematous changes along with Escherichia coli, whi ch is multidrug resistant. Since it is in the sputum, I would request respiratory isolation until we clear him the patient takes multidrug resistant organism. On his medications, he is on DuoNeb, Norvasc, Zithromax, Pulmicort, Drisdol, Pepcid and fluconazole, and imipenem has been added. On ser ology, C. diff is negative. So we will continue present treatment for now and give him a week's wort h of imipenem and reevaluate with a chest x-ray and he is told to repeat his CAT scan in 3 months. Jaylen Stewart MD cc: [id number] TT: 04/10/2017 17:19:02 Confirmation # [id number] Dictation # [id number] ln
[2017-04-11] MEDS: MethylPREDNISolone 40 mg Vial IVP SCH ×3 (06:37→22:23)
[2017-04-11 08:28] LABS: MAGNESIUM 1.6 mg/dL (1.6-2.3); PHOSPHOROUS 3.8 mg/dL (2.5-4.5)
[2017-04-11] MEDS: (Novolin R) Insulin Human Regular 100 units/ml vial SC SCH ×4 (08:29→22:23)
[2017-04-11] MEDS: Budesonide 0.5 mg/2 ml Inhal Susp UD INH SCH (08:33)
[2017-04-11] MEDS: (Lantus) Insulin Glargine, Recombinant SC SCH (11:41)
[2017-04-11] MEDS: Betamethasone Valerate 0.1% Lotion (60 ml) TOP SCH ×2 (11:42→18:59)
[2017-04-11] MEDS: Ammonium Lactate 12% Lotion (225 g) EXT SCH ×2 (11:42→18:58)
[2017-04-11] MEDS: Saccharomyces Boulardi 250 mg Cap PO SCH ×2 (11:42→18:57)
--- NOTE | 2017-04-11 12:54 | CP.PCM.PN ---
<Betsy Catherine - Last Filed: 04/11/17 13:59> Subjective - Date & Time of Evaluation Date of Evaluation: 04/11/17 Time of Evaluation: 12:50 - Subjective Subjective: The patient was seen and examined at bedside. He states that he did not sleep well overnight due to his cough. He feels worse overall and denies any improvement in his cough. He is requesting an expectorant. He states that he is coughing up green/yellow phlegm more frequently. He also reports 3 episodes of watery/loose, yellow diarrhea this morning in addition to sharp b/l lower abdominal pain that began 2 days ago. He also reports continued symptoms of UTI. The patient reports nausea, vomiting x2, fatigue, night sweats, headache, chest pain, cough, shortness of breath, pain on inspiration, hemoptysis, sputum production, indigestion, diarrhea, abdominal pain, urgency, dysuria, and polyuria. The patient denies fever/chills, vision changes, palpitations, constipation, hematochezia, and hematuria. Objective - Vital Signs/Intake and Output Vital Signs (last 24 hours): Temp Pulse Resp BP Pulse Ox 97.5 F L 83 20 142/68 97 04/11/17 08:07 04/11/17 08:07 04/11/17 08:07 04/11/17 08:07 04/11/17 08:07 - Medications Medications: Current Medications Albuterol/Ipratropium (Duoneb 3 Mg/0.5 Mg (3 Ml) Ud) 3 ml INH RQ6 [facility] Amlodipine Besylate (Norvasc) 5 mg PO DAILY [facility] Last Admin: 04/11/17 11:42 Dose: 5 mg Betamethasone Valerate (Betamethasone Valerate 0.1%) 0 ml TOP BID [facility] Last Admin: 04/11/17 11:42 Dose: 60 ml Budesonide (Pulmicort Respules) 0.5 mg INH RQ12 [facility] Last Admin: 04/11/17 08:33 Dose: 0.5 mg Ergocalciferol (Drisdol 50,000 Intl Units Cap) 1 cap PO Q7D [facility] Last Admin: 04/05/17 14:57 Dose: 1 cap Famotidine (Pepcid) 20 mg PO BID [facility] Last Admin: 04/11/17 11:42 Dose: 20 mg Fluconazole (Diflucan) 200 mg PO DAILY [facility] Last Admin: 04/11/17 11:42 Dose: 200 mg Guaifenesin/Dextromethorphan (Robitussin Dm) 10 ml PO Q4H PRN PRN Reason: Cough and congestion Last Admin: 04/09/17 21:41 Dose: 10 ml Imipenem/Cilastatin Sodium 500 (mg/ Sodium Chloride) 100 mls @ 100 mls/hr IVPB Q6 [facility] Last Admin: 04/11/17 06:37 Dose: 100 mls/hr Insulin Glargine (Lantus) 20 unit SC BID [facility] Insulin Human Regular (Novolin R) 0 unit SC ACHS [facility] PRN Reason: Protocol Last Admin: 04/11/17 08:29 Dose: 4 unit Lactic Acid (Lac-Hydrin 12% Lotion (225 G)) 0 gm EXT BID [facility] Last Admin: 04/11/17 11:42 Dose: 1 applic Lisinopril (Zestril) 5 mg PO DAILY [facility] Last Admin: 04/11/17 11:43 Dose: 5 mg Metformin HCl (Glucophage) 500 mg PO BID [facility] Last Admin: 04/11/17 11:41 Dose: 500 mg Methylprednisolone (Solu-Medrol) 40 mg IVP Q8 [facility] Last Admin: 04/11/17 06:37 Dose: 40 mg Ondansetron HCl (Zofran Inj) 4 mg IVP Q6H PRN PRN Reason: Nausea/Vomiting Saccharomyces Boulardii (Florastor) 250 mg PO BID [facility] Last Admin: 04/11/17 11:42 Dose: 250 mg - Labs Labs: 04/10/17 07:51 04/10/17 07:51 PT 13.3 SECONDS (9.7-12.2) H 04/04/17 18:46 INR 1.2 04/04/17 18:46 APTT 40 SECONDS (21-34) H 04/04/17 18:46 - Constitutional Appears: Non-toxic, No Acute Distress - Head Exam Head Exam: ATRAUMATIC, NORMAL INSPECTION, NORMOCEPHALIC - Eye Exam Eye Exam: EOMI, Normal appearance - ENT Exam ENT Exam: Mucous Membranes Moist - Neck Exam Neck Exam: Full ROM, Normal Inspection - Respiratory Exam Respiratory Exam: Rhonchi, Wheezes Additional comments: cough - Cardiovascular Exam Cardiovascular Exam: +S1, +S2. absent: Tachycardia - GI/Abdominal Exam GI & Abdominal Exam: Soft, Tenderness, Normal Bowel Sounds. absent: Firm Additional comments: tender to palpation in bilateral lower abdominal quadrants and pelvis - Extremities Exam Extremities Exam: Normal Inspection. absent: Pedal Edema, Tenderness - Neurological Exam Neurological Exam: Alert, Awake, Oriented x3 - Psychiatric Exam Psychiatric exam: Normal Affect, Normal Mood - Skin Additional comments: Greatly improved scaly plaques to trunk and bilateral lower extremities Assessment and Plan - Assessment and Plan (Free Text) Assessment: COPD exacerbation secondary to pneumonia Patient continues to have significant wheezing/rhonchi/cough Sputum positive for ESBL. Infectious disease, Dr. Stewart, consulted. Help appreciated. Placed on droplet precautions Pattern Setter, Dr. Joseph consulted, help appreciated. Started on Primaxin 500 mg IVPB q6h Continue on Solumedrol 40mg IVP Q8h Continue Pulmicort 0.5 mg INH Q12h Continue Duonebs RQ4h scheduled Discontinue Albuterol 1.25 INH RQ3 prn wheezing Guaifenesin/Dextromethorphan 10 ml po q4h PRN for cough Continue Zithromax 250mg PO daily ROMIs negative x [address] w/o contrast: There are atelectatic/scarring changes both lung bases including on the lingular and middle lobe regions. Central lobular emphysematous changes with upper lobe predominance. There are also small bulla and/or of large bleb changes in the right lung apex and to a lesser degree left and at anterior upper lung field. Small calcific granuloma left lobe apex. Small nodule lateral aspect left upper lobe and another in the right lower lobe. Followup CT scan 3 months could be performed to assess stability. In situ IVC filter. (see full report) CXR- 04/04/17- Vague patchy opacity seen in the right lung base could represent atelectasis vs developing infiltrate. Minimal left basilar atelectasis. (Please see full report) Dysuria Urinalysis: yeast Urine Culture negative (04/09/17) Continue Diflucan 200 mg po daily Diarrhea c. 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 Prophylactic Measures Pepcid 20 mg po BID Held Heparin due to hx of retroperitoneal bleed <Jerry Elise - Last Filed: 04/11/17 16:54> Objective - Vital Signs/Intake and Output Vital Signs (last 24 hours): Temp Pulse Resp BP Pulse Ox 98 F 81 20 153/74 H 97 04/11/17 15:35 04/11/17 15:35 04/11/17 15:35 04/11/17 15:35 04/11/17 15:35 Intake and Output: 04/11/17 04/11/17 06:59 18:59 Intake Total 340 Balance 340 - Medications Medications: Current Medications Albuterol/Ipratropium (Duoneb 3 Mg/0.5 Mg (3 Ml) Ud) 3 ml INH RQ4 [facility] Last Admin: 04/11/17 15:45 Dose: 3 ml Amlodipine Besylate (Norvasc) 5 mg PO DAILY [facility] Last Admin: 04/11/17 11:42 Dose: 5 mg Betamethasone Valerate (Betamethasone Valerate 0.1%) 0 ml TOP BID [facility] Last Admin: 04/11/17 11:42 Dose: 60 ml Budesonide (Pulmicort Respules) 0.5 mg INH RQ12 [facility] Last Admin: 04/11/17 08:33 Dose: 0.5 mg Ergocalciferol (Drisdol 50,000 Intl Units Cap) 1 cap PO Q7D [facility] Last Admin: 04/05/17 14:57 Dose: 1 cap Famotidine (Pepcid) 20 mg PO BID [facility] Last Admin: 04/11/17 11:42 Dose: 20 mg Fluconazole (Diflucan) 200 mg PO DAILY [facility] Last Admin: 04/11/17 11:42 Dose: 200 mg Guaifenesin/Dextromethorphan (Robitussin Dm) 10 ml PO Q4H PRN PRN Reason: Cough and congestion Last Admin: 04/09/17 21:41 Dose: 10 ml Imipenem/Cilastatin Sodium 500 (mg/ Sodium Chloride) 100 mls @ 100 mls/hr IVPB Q6 [facility] Last Admin: 04/11/17 13:01 Dose: 100 mls/hr Insulin Glargine (Lantus) 20 unit SC BID [facility] Insulin Human Regular (Novolin R) 0 unit SC ACHS [facility] PRN Reason: Protocol Last Admin: 04/11/17 12:51 Dose: 4 unit Lactic Acid (Lac-Hydrin 12% Lotion (225 G)) 0 gm EXT BID [facility] Last Admin: 04/11/17 11:42 Dose: 1 applic Lisinopril (Zestril) 5 mg PO DAILY [facility] Last Admin: 04/11/17 11:43 Dose: 5 mg Loperamide HCl (Imodium) 2 mg PO QID PRN PRN Reason: Diarrhea Metformin HCl (Glucophage) 500 mg PO BID [facility] Last Admin: 04/11/17 11:41 Dose: 500 mg Methylprednisolone (Solu-Medrol) 40 mg IVP Q8 [facility] Last Admin: 04/11/17 13:01 Dose: 40 mg Ondansetron HCl (Zofran Inj) 4 mg IVP Q6H PRN PRN Reason: Nausea/Vomiting Saccharomyces Boulardii (Florastor) 250 mg PO BID [facility] Last Admin: 04/11/17 11:42 Dose: 250 mg - Labs Labs: 04/11/17 14:36 04/11/17 14:36 PT 13.3 SECONDS (9.7-12.2) H 04/04/17 18:46 INR 1.2 04/04/17 18:46 APTT 40 SECONDS (21-34) H 04/04/17 18:46 Attending/Attestation - Attestation I have personally seen and examined this patient.: Yes I have fully participated in the care of the patient.: Yes I have reviewed all pertinent clinical information, including history, physical exam and plan: Yes Notes (Text): 04/11/17 16:54 Patient was seen and examined at bedside with the resident Patient still complains of cough and wheezing and expectoration ID consultation requested and recommendations appreciated We have also requested pulmonary to evaluate the patient I discussed the plan of care with the resident and agree with the above history and physical and assessment/plan by the resident.
[2017-04-11] MEDS ORDERED: Albuterol-Ipratrop 3 mg / 0.5 (3 ml) UD INH SCH (14:00)
[2017-04-11 14:40] LABS: BASO % 0.3 % (0.0-2.0); HEMATOCRIT 39.2 % (35.0-51.0); LYMPH # 1.2 K/uL (1.0-4.3); LYMPH % 11.5 % (20.0-40.0); MEAN CELL VOLUME 86.9 fL (80.0-94.0); MEAN CORPUSCULAR HEMOGLOBIN 28.1 pg (27.0-31.0); MEAN CORPUSCULAR HGB CONC 32.3 g/dL (33.0-37.0); MEAN PLATELET VOLUME 8.4 fL (7.2-11.7); MONO # 0.7 K/uL (0.0-0.8); MONO % 6.9 % (0.0-10.0); NRBC % 0.3 % (0.0-2.0); RED CELL DISTRIBUTION WIDTH 16.1 % (11.5-14.5); WHITE BLOOD COUNT 10.7 K/uL (4.8-10.8)
[2017-04-11 14:51] LABS: CHLORIDE 96 mmol/L (98-107); POTASSIUM 4.2 mmol/L (3.6-5.2); SODIUM 136 mmol/L (132-148)
[2017-04-11 14:53] LABS: BILIRUBIN,TOTAL 0.4 mg/dL (0.2-1.3); GFR AFRICAN-AMERICAN > 60
[2017-04-11 14:54] LABS: ALB/GLOB RATIO 1.1 (1.0-2.1); ALKALINE PHOSPHATASE 48 U/L (38-126); ALT/SGPT 30 U/L (21-72); AST/SGOT 16 U/L (17-59); BLOOD UREA NITROGEN 32 mg/dL (9-20); CALCIUM 8.6 mg/dl (8.6-10.4); CARBON DIOXIDE 27 mmol/L (22-30); GLUCOSE,RANDOM 227 mg/dL (75-110); TOTAL PROTEIN 6.3 g/dL (6.3-8.3)
[2017-04-11 14:55] LABS: MAGNESIUM 1.6 mg/dL (1.6-2.3)
[2017-04-11] MEDS: Albuterol-Ipratrop 3 mg / 0.5 (3 ml) UD INH SCH (15:45)
--- NOTE | 2017-04-11 16:46 | CT ---
PROCEDURE: CT Chest without contrast HISTORY: pneumonia COMPARISON: None. TECHNIQUE: Contiguous axial images were obtained through the chest without intravenous contrast enhancement. Sagittal and coronal reconstructions were performed. Radiation dose (DLP): 657.20 mGy-cm. This CT exam was performed using one or more of the following dose reduction techniques: Automated exposure control, adjustment of the mA and/or kV according to patient size, and/or use of iterative reconstruction technique. FINDINGS: LUNGS: No pulmonary infiltrate. 2 mm subpleural nodule left upper lobe. No further evaluation required. No other pulmonary mass. MEDIASTINUM: Unremarkable thoracic aorta. No aneurysm. Normal-sized heart. Coronary arterial calcification. Main pulmonary artery unremarkable. No vascular congestion. No lymphadenopathy. PLEURA: Trace right pleural effusion. No left pleural effusion. BONES: No fracture. No destructive lesion. UPPER ABDOMEN: Inferior vena caval filter. Contracted gallbladder without evidence of calcified stones. OTHER FINDINGS: None. IMPRESSION: No pulmonary infiltrate. Trace right pleural effusion. No other acute abnormality.
--- NOTE | 2017-04-11 20:07 | CP.PCM.CON ---
History of Present Illness - History of Present Illness History of Present Illness: called to see pt for cough, discolored sputum, sob, wheezing ex -smoker 2-3 ppd for many yrs Review of Systems - Review of Systems All systems: reviewed and no additional remarkable complaints except - Respiratory Respiratory: Dyspnea on Exertion, Wheezing, Chest Congestion, Excessive Mucous Production, Change in Mucous Color Past Patient History - Infectious Disease Hx of Infectious Diseases: None - Tetanus Immunizations Tetanus Immunization: Unknown - Past Medical History & Family History Past Medical History?: Yes - Past Social History Smoking Status: Former Smoker - CARDIAC Hx Congestive Heart Failure: Yes - PULMONARY Hx Asthma: Yes Hx Chronic Obstructive Pulmonary Disease (COPD): Yes Hx Pneumonia: Yes Hx Pulmonary Embolism: Yes - NEUROLOGICAL Hx Neurological Disorder: No - HEENT Hx HEENT Problems: No - RENAL Hx Chronic Kidney Disease: No - ENDOCRINE/METABOLIC Hx Endocrine Disorders: No - HEMATOLOGICAL/ONCOLOGICAL Hx Human Immunodeficiency Virus (HIV): No - INTEGUMENTARY Hx Dermatological Problems: Yes (GENERALIZED SKIN RASH) - MUSCULOSKELETAL/RHEUMATOLOGICAL Hx Musculoskeletal Disorders: No Hx Falls: Yes - GASTROINTESTINAL Hx Gastrointestinal Disorders: Yes Other/Comment: GI bleeding on last admission while on anti-coagulation - GENITOURINARY/GYNECOLOGICAL Hx Genitourinary Disorders: No - PSYCHIATRIC Hx Substance Use: No - SURGICAL HISTORY Hx Surgeries: No - ANESTHESIA Hx Anesthesia: No Hx Anesthesia Reactions: No Meds Allergies/Adverse Reactions: Allergies Allergy/AdvReac Type Severity Reaction Status Date / Time No Known Allergies Allergy Verified 04/04/17 18:49 - Medications Medications: Current Medications Albuterol/Ipratropium (Duoneb 3 Mg/0.5 Mg (3 Ml) Ud) 3 ml INH RQ4 [facility] Last Admin: 04/11/17 15:45 Dose: 3 ml Amlodipine Besylate (Norvasc) 5 mg PO DAILY [facility] Last Admin: 04/11/17 11:42 Dose: 5 mg Betamethasone Valerate (Betamethasone Valerate 0.1%) 0 ml TOP BID [facility] Last Admin: 04/11/17 18:59 Dose: 60 ml Budesonide (Pulmicort Respules) 0.5 mg INH RQ12 [facility] Last Admin: 04/11/17 08:33 Dose: 0.5 mg Ergocalciferol (Drisdol 50,000 Intl Units Cap) 1 cap PO Q7D [facility] Last Admin: 04/05/17 14:57 Dose: 1 cap Famotidine (Pepcid) 20 mg PO BID [facility] Last Admin: 04/11/17 18:57 Dose: 20 mg Fluconazole (Diflucan) 200 mg PO DAILY [facility] Last Admin: 04/11/17 11:42 Dose: 200 mg Guaifenesin/Dextromethorphan (Robitussin Dm) 10 ml PO Q4H PRN PRN Reason: Cough and congestion Last Admin: 04/09/17 21:41 Dose: 10 ml Imipenem/Cilastatin Sodium 500 (mg/ Sodium Chloride) 100 mls @ 100 mls/hr IVPB Q6 [facility] Last Admin: 04/11/17 18:57 Dose: 100 mls/hr Insulin Glargine (Lantus) 20 unit SC BID [facility] Insulin Human Regular (Novolin R) 0 unit SC ACHS [facility] PRN Reason: Protocol Last Admin: 04/11/17 19:22 Dose: 4 unit Lactic Acid (Lac-Hydrin 12% Lotion (225 G)) 0 gm EXT BID [facility] Last Admin: 04/11/17 18:58 Dose: 1 applic Lisinopril (Zestril) 5 mg PO DAILY [facility] Last Admin: 04/11/17 11:43 Dose: 5 mg Loperamide HCl (Imodium) 2 mg PO QID PRN PRN Reason: Diarrhea Metformin HCl (Glucophage) 500 mg PO BID [facility] Last Admin: 04/11/17 18:57 Dose: 500 mg Methylprednisolone (Solu-Medrol) 40 mg IVP Q8 [facility] Last Admin: 04/11/17 13:01 Dose: 40 mg Ondansetron HCl (Zofran Inj) 4 mg IVP Q6H PRN PRN Reason: Nausea/Vomiting Saccharomyces Boulardii (Florastor) 250 mg PO BID [facility] Last Admin: 04/11/17 18:57 Dose: 250 mg Physical Exam - Constitutional Appears: Chronically Ill - Head Exam Head Exam: ATRAUMATIC, NORMOCEPHALIC - Eye Exam Eye Exam: Normal appearance - ENT Exam ENT Exam: Mucous Membranes Moist - Respiratory Exam Respiratory Exam: Decreased Breath Sounds, Rhonchi, Wheezes - Cardiovascular Exam Cardiovascular Exam: +S1, +S2 - GI/Abdominal Exam GI & Abdominal Exam: Normal Bowel Sounds - Rectal Exam Rectal Exam: Deferred - Neurological Exam Neurological exam: Alert, Oriented x3 - Psychiatric Exam Psychiatric exam: Normal Affect, Normal Mood - Skin Skin Exam: Intact Results - Vital Signs Recent Vital Signs: Last Vital Signs Temp 98 F 04/11/17 15:35 Pulse 81 04/11/17 15:35 Resp 20 04/11/17 15:35 BP 153/74 H 04/11/17 15:35 Pulse Ox 97 04/11/17 15:35 - Labs Result Diagrams: 04/11/17 14:36 04/11/17 14:36 Labs: Laboratory Results - last 24 hr 04/10/17 04/11/17 04/11/17 21:57 06:54 08:05 WBC RBC Hgb Hct MCV MCH MCHC RDW Plt Count MPV Neut % (Auto) Lymph % (Auto) [place] % (Auto) Eos % (Auto) Baso % (Auto) Neut # Lymph # [place] # Eos # Baso # Sodium Potassium Chloride Carbon Dioxide Anion Gap BUN Creatinine Est GFR ( Amer) Est GFR (Non-Af Amer) POC Glucose (mg/dL) 223 H 225 H Random Glucose Calcium Phosphorus 3.8 Magnesium 1.6 Total Bilirubin AST ALT Alkaline Phosphatase Total Protein Albumin Globulin Albumin/Globulin Ratio 04/11/17 04/11/17 04/11/17 11:14 14:36 14:36 WBC 10.7 RBC 4.51 Hgb 12.7 Hct 39.2 MCV 86.9 MCH 28.1 MCHC 32.3 L RDW 16.1 H Plt Count 306 MPV 8.4 Neut % (Auto) 81.3 H Lymph % (Auto) 11.5 L [place] % (Auto) 6.9 Eos % (Auto) 0.0 Baso % (Auto) 0.3 Neut # 8.7 H Lymph # 1.2 [place] # 0.7 Eos # 0.0 Baso # 0.0 Sodium 136 Potassium 4.2 Chloride 96 L Carbon Dioxide 27 Anion Gap 17 BUN 32 H Creatinine 0.9 Est GFR ( Amer) > 60 Est GFR (Non-Af Amer) > 60 POC Glucose (mg/dL) 228 H Random Glucose 227 H Calcium 8.6 Phosphorus Magnesium 1.6 Total Bilirubin 0.4 AST 16 L ALT 30 Alkaline Phosphatase 48 Total Protein 6.3 Albumin 3.3 L Globulin 3.0 Albumin/Globulin Ratio 1.1 04/11/17 16:19 WBC RBC Hgb Hct MCV MCH MCHC RDW Plt Count MPV Neut % (Auto) Lymph % (Auto) [place] % (Auto) Eos % (Auto) Baso % (Auto) Neut # Lymph # [place] # Eos # Baso # Sodium Potassium Chloride Carbon Dioxide Anion Gap BUN Creatinine Est GFR ( Amer) Est GFR (Non-Af Amer) POC Glucose (mg/dL) 239 H Random Glucose Calcium Phosphorus Magnesium Total Bilirubin AST ALT Alkaline Phosphatase Total Protein Albumin Globulin Albumin/Globulin Ratio Assessment & Plan (1) Acute exacerbation of chronic obstructive pulmonary disease Status: Acute (2) Acute bronchitis with COPD Status: Acute
[2017-04-12] MEDS: Albuterol-Ipratrop 3 mg / 0.5 (3 ml) UD INH SCH ×7 (00:28→23:55)
[2017-04-12] MEDS ORDERED: Albuterol-Ipratrop 3 mg / 0.5 (3 ml) UD INH SCH (02:00)
[2017-04-12] MEDS: MethylPREDNISolone 40 mg Vial IVP SCH ×3 (06:25→21:28)
[2017-04-12] MEDS: (Novolin R) Insulin Human Regular 100 units/ml vial SC SCH ×4 (08:02→21:31)
[2017-04-12] MEDS: Tiotropium 18 mcg Cap For Inhalation INH SCH (09:11)
[2017-04-12] MEDS: Fluticasone-Salmeterol 500-50mcg Diskus INH SCH ×2 (09:11→19:44)
[2017-04-12] MEDS: Betamethasone Valerate 0.1% Lotion (60 ml) TOP SCH ×2 (10:41→17:15)
[2017-04-12] MEDS: (Lantus) Insulin Glargine, Recombinant SC SCH ×2 (10:42→17:15)
[2017-04-12] MEDS: Saccharomyces Boulardi 250 mg Cap PO SCH ×2 (10:42→17:18)
[2017-04-12] MEDS: Ammonium Lactate 12% Lotion (225 g) EXT SCH ×2 (10:42→17:15)
[2017-04-12] MEDS: Sodium Chloride 0.9% 1,000 ML IV SCH ×2 (10:44→23:25)
[2017-04-12] MEDS: Ergocalciferol 50,000 Intl Units Cap PO SCH (13:40)
--- NOTE | 2017-04-12 18:02 | CP.PCM.PN ---
<Wallace Schaffer H - Last Filed: 04/12/17 20:00> Subjective - Date & Time of Evaluation Date of Evaluation: 04/12/17 Time of Evaluation: 09:00 - Subjective Subjective: Dr. Elise's progress note: Patient is seen in room while in droplet isolation. He is sitting up in bed. He is complaining having fever, chills, wheezing, productive cough, chest pain, nausea, vomiting, diarrhea, rash, joint pain. He is also complaining of burning with urination but no hematuria. Objective - Vital Signs/Intake and Output Vital Signs (last 24 hours): Temp Pulse Resp BP Pulse Ox 97.3 F L 79 20 143/70 98 04/12/17 16:39 04/12/17 16:39 04/12/17 16:39 04/12/17 16:39 04/12/17 16:39 Intake and Output: 04/12/17 04/12/17 06:59 18:59 Intake Total 1200 Balance 1200 - Medications Medications: Current Medications Albuterol/Ipratropium (Duoneb 3 Mg/0.5 Mg (3 Ml) Ud) 3 ml INH RQ4 [facility] Last Admin: 04/12/17 16:48 Dose: Not Given Amlodipine Besylate (Norvasc) 5 mg PO DAILY [facility] Last Admin: 04/12/17 10:43 Dose: 5 mg Betamethasone Valerate (Betamethasone Valerate 0.1%) 0 ml TOP BID [facility] Last Admin: 04/12/17 17:15 Dose: 60 ml Ergocalciferol (Drisdol 50,000 Intl Units Cap) 1 cap PO Q7D [facility] Last Admin: 04/12/17 13:40 Dose: 1 cap Famotidine (Pepcid) 20 mg PO BID [facility] Last Admin: 04/12/17 17:40 Dose: 20 mg Fluconazole (Diflucan) 200 mg PO DAILY [facility] Last Admin: 04/12/17 10:42 Dose: 200 mg Guaifenesin/Dextromethorphan (Robitussin Dm) 10 ml PO Q4H PRN PRN Reason: Cough and congestion Last Admin: 04/09/17 21:41 Dose: 10 ml Imipenem/Cilastatin Sodium 500 (mg/ Sodium Chloride) 100 mls @ 100 mls/hr IVPB Q6 [facility] Last Admin: 04/12/17 17:16 Dose: 100 mls/hr Sodium Chloride (Sodium Chloride 0.9%) 1,000 mls @ 75 mls/hr IV .[id number] [facility] Last Admin: 04/12/17 10:44 Dose: 75 mls/hr Insulin Glargine (Lantus) 20 unit SC BID [facility] Last Admin: 04/12/17 17:15 Dose: 20 u Insulin Human Regular (Novolin R) 0 unit SC ACHS [facility] PRN Reason: Protocol Last Admin: 04/12/17 16:45 Dose: 4 unit Lactic Acid (Lac-Hydrin 12% Lotion (225 G)) 0 gm EXT BID [facility] Last Admin: 04/12/17 17:15 Dose: 1 applic Loperamide HCl (Imodium) 2 mg PO QID PRN PRN Reason: Diarrhea Losartan Potassium (Cozaar) 25 mg PO DAILY [facility] Last Admin: 04/12/17 10:41 Dose: 25 mg Metformin HCl (Glucophage) 500 mg PO BID [facility] Last Admin: 04/12/17 17:14 Dose: 500 mg Methylprednisolone (Solu-Medrol) 40 mg IVP Q8 [facility] Last Admin: 04/12/17 13:40 Dose: 40 mg Ondansetron HCl (Zofran Inj) 4 mg IVP Q6H PRN PRN Reason: Nausea/Vomiting Roflumilast (Daliresp) 500 mcg PO DAILY [facility] Last Admin: 04/12/17 10:41 Dose: 500 mcg Saccharomyces Boulardii (Florastor) 250 mg PO BID [facility] Last Admin: 04/12/17 17:18 Dose: 250 mg Fluticasone/Salmeterol (Advair Diskus 500/50) 1 puff INH RQ12 [facility] Last Admin: 04/12/17 09:11 Dose: 1 puff Tiotropium [place] (Spiriva) 18 mcg INH RQ24 [facility] Last Admin: 04/12/17 09:11 Dose: 18 mcg - Labs Labs: 04/11/17 14:36 04/11/17 14:36 PT 13.3 SECONDS (9.7-12.2) H 04/04/17 18:46 INR 1.2 04/04/17 18:46 APTT 40 SECONDS (21-34) H 04/04/17 18:46 - Constitutional Appears: Non-toxic, No Acute Distress - Head Exam Head Exam: NORMAL INSPECTION - Eye Exam Eye Exam: Normal appearance Pupil Exam: NORMAL ACCOMODATION - Respiratory Exam Respiratory Exam: Rhonchi, Wheezes. absent: Clear to Ausculation Bilateral, Rales - Cardiovascular Exam Cardiovascular Exam: REGULAR RHYTHM, RRR, +S1, +S2. absent: Gallop, Rubs - GI/Abdominal Exam GI & Abdominal Exam: Soft, Normal Bowel Sounds. absent: Tenderness - Extremities Exam Extremities Exam: Normal Inspection - Back Exam Back Exam: NORMAL INSPECTION - Psychiatric Exam Psychiatric exam: Normal Affect, Normal Mood - Skin Skin Exam: Normal Color Assessment and Plan - Assessment and Plan (Free Text) Assessment: COPD exacerbation secondary to pneumonia 04/12: Continue with isolation, continue antibiotics for now. day 3 of IV antibiotics. Patient continues to have significant wheezing/rhonchi/cough Sputum positive for ESBL. Infectious disease, Dr. Stewart, consulted. Help appreciated. Placed on droplet precautions Regional Production Manager, Dr. Joseph consulted, help appreciated. Started on Primaxin 500 mg IVPB q6h Continue on Solumedrol 40mg IVP Q8h Continue Pulmicort 0.5 mg INH Q12h Continue Duonebs RQ4h scheduled Discontinue Albuterol 1.25 INH RQ3 prn wheezing Guaifenesin/Dextromethorphan 10 ml po q4h PRN for cough Continue Zithromax 250mg PO daily ROMIs negative x [address] w/o contrast: There are atelectatic/scarring changes both lung bases including on the lingular and middle lobe regions. Central lobular emphysematous changes with upper lobe predominance. There are also small bulla and/or of large bleb changes in the right lung apex and to a lesser degree left and at anterior upper lung field. Small calcific granuloma left lobe apex. Small nodule lateral aspect left upper lobe and another in the right lower lobe. Followup CT scan 3 months could be performed to assess stability. In situ IVC filter. (see full report) CXR- 04/04/17- Vague patchy opacity seen in the right lung base could represent atelectasis vs developing infiltrate. Minimal left basilar atelectasis. (Please see full report) Dysuria Urinalysis: yeast Urine Culture negative (04/09/17) Continue Diflucan 200 mg po daily Diarrhea c. 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 Prophylactic Measures Pepcid 20 mg po BID Held Heparin due to hx of retroperitoneal bleed <Jerry Elise - Last Filed: 04/13/17 07:59> Objective - Vital Signs/Intake and Output Vital Signs (last 24 hours): Temp Pulse Resp BP Pulse Ox 97.9 F 77 20 150/73 95 04/13/17 07:47 04/13/17 07:47 04/13/17 07:47 04/13/17 07:47 04/13/17 07:47 Intake and Output: 04/13/17 04/13/17 06:59 18:59 Intake Total 1100 Output Total 700 Balance 400 - Medications Medications: Current Medications Albuterol/Ipratropium (Duoneb 3 Mg/0.5 Mg (3 Ml) Ud) 3 ml INH RQ4 [facility] Last Admin: 04/13/17 04:17 Dose: Not Given Amlodipine Besylate (Norvasc) 5 mg PO DAILY [facility] Last Admin: 04/12/17 10:43 Dose: 5 mg Betamethasone Valerate (Betamethasone Valerate 0.1%) 0 ml TOP BID [facility] Last Admin: 04/12/17 17:15 Dose: 60 ml Ergocalciferol (Drisdol 50,000 Intl Units Cap) 1 cap PO Q7D [facility] Last Admin: 04/12/17 13:40 Dose: 1 cap Famotidine (Pepcid) 20 mg PO BID [facility] Last Admin: 04/12/17 17:40 Dose: 20 mg Fluconazole (Diflucan) 200 mg PO DAILY [facility] Last Admin: 04/12/17 10:42 Dose: 200 mg Guaifenesin/Dextromethorphan (Robitussin Dm) 10 ml PO Q4H PRN PRN Reason: Cough and congestion Last Admin: 04/09/17 21:41 Dose: 10 ml Imipenem/Cilastatin Sodium 500 (mg/ Sodium Chloride) 100 mls @ 100 mls/hr IVPB Q6 [facility] Last Admin: 04/13/17 05:54 Dose: 100 mls/hr Sodium Chloride (Sodium Chloride 0.9%) 1,000 mls @ 75 mls/hr IV .[id number] [facility] Last Admin: 04/12/17 23:25 Dose: Not Given Insulin Glargine (Lantus) 20 unit SC BID [facility] Last Admin: 04/12/17 17:15 Dose: 20 u Insulin Human Regular (Novolin R) 0 unit SC ACHS [facility] PRN Reason: Protocol Last Admin: 04/12/17 21:31 Dose: Not Given Lactic Acid (Lac-Hydrin 12% Lotion (225 G)) 0 gm EXT BID [facility] Last Admin: 04/12/17 17:15 Dose: 1 applic Loperamide HCl (Imodium) 2 mg PO QID PRN PRN Reason: Diarrhea Losartan Potassium (Cozaar) 25 mg PO DAILY [facility] Last Admin: 04/12/17 10:41 Dose: 25 mg Metformin HCl (Glucophage) 500 mg PO BID [facility] Last Admin: 04/12/17 17:14 Dose: 500 mg Methylprednisolone (Solu-Medrol) 40 mg IVP Q8 [facility] Last Admin: 04/13/17 05:54 Dose: 40 mg Ondansetron HCl (Zofran Inj) 4 mg IVP Q6H PRN PRN Reason: Nausea/Vomiting Roflumilast (Daliresp) 500 mcg PO DAILY [facility] Last Admin: 04/12/17 10:41 Dose: 500 mcg Saccharomyces Boulardii (Florastor) 250 mg PO BID [facility] Last Admin: 04/12/17 17:18 Dose: 250 mg Fluticasone/Salmeterol (Advair Diskus 500/50) 1 puff INH RQ12 [facility] Last Admin: 04/12/17 19:44 Dose: 1 puff Tiotropium [place] (Spiriva) 18 mcg INH RQ24 [facility] Last Admin: 04/12/17 09:11 Dose: 18 mcg - Labs Labs: 04/11/17 14:36 04/11/17 14:36 PT 13.3 SECONDS (9.7-12.2) H 04/04/17 18:46 INR 1.2 04/04/17 18:46 APTT 40 SECONDS (21-34) H 04/04/17 18:46 Attending/Attestation - Attestation I have personally seen and examined this patient.: Yes I have fully participated in the care of the patient.: Yes I have reviewed all pertinent clinical information, including history, physical exam and plan: Yes Notes (Text): 04/13/17 07:59 Patient was seen and examined at bedside Patient still has wheezing Patient also continues to have cough and expectoration We will continue respiratory isolation Antibiotics as per recommendations of ID Pulmonary evaluation seen in appreciated Continue DuoNeb treatment and the steroids Slowly improving Discussed the plan of care with the resident I agree with the above history and physical and assessment/plan with the resident.
[2017-04-13] MEDS: Albuterol-Ipratrop 3 mg / 0.5 (3 ml) UD INH SCH ×5 (04:17→19:54)
[2017-04-13] MEDS: MethylPREDNISolone 40 mg Vial IVP SCH ×3 (05:54→21:42)
[2017-04-13] MEDS: Fluticasone-Salmeterol 500-50mcg Diskus INH SCH ×2 (08:26→19:54)
[2017-04-13] MEDS: Tiotropium 18 mcg Cap For Inhalation INH SCH (08:26)
[2017-04-13] MEDS: (Novolin R) Insulin Human Regular 100 units/ml vial SC SCH ×4 (08:41→21:48)
[2017-04-13 08:53] LABS: BASO % 0.2 % (0.0-2.0); HEMATOCRIT 38.2 % (35.0-51.0); LYMPH # 1.3 K/uL (1.0-4.3); LYMPH % 11.1 % (20.0-40.0); MEAN CELL VOLUME 86.2 fL (80.0-94.0); MEAN CORPUSCULAR HEMOGLOBIN 28.3 pg (27.0-31.0); MEAN CORPUSCULAR HGB CONC 32.8 g/dL (33.0-37.0); MEAN PLATELET VOLUME 8.3 fL (7.2-11.7); MONO # 1.4 K/uL (0.0-0.8); NRBC % 0.3 % (0.0-2.0); RED CELL DISTRIBUTION WIDTH 16.2 % (11.5-14.5); WHITE BLOOD COUNT 11.8 K/uL (4.8-10.8)
[2017-04-13 09:11] LABS: CHLORIDE 97 mmol/L (98-107)
[2017-04-13 09:12] LABS: POTASSIUM 3.8 mmol/L (3.6-5.2); SODIUM 133 mmol/L (132-148)
[2017-04-13 09:14] LABS: ALB/GLOB RATIO 1.1 (1.0-2.1); ALKALINE PHOSPHATASE 41 U/L (38-126); AST/SGOT 17 U/L (17-59); BILIRUBIN,TOTAL 0.5 mg/dL (0.2-1.3); BLOOD UREA NITROGEN 37 mg/dL (9-20); CARBON DIOXIDE 28 mmol/L (22-30); GFR AFRICAN-AMERICAN > 60; GLUCOSE,RANDOM 144 mg/dL (75-110); TOTAL PROTEIN 5.6 g/dL (6.3-8.3)
[2017-04-13 09:15] LABS: ALT/SGPT 22 U/L (21-72); CALCIUM 8.2 mg/dl (8.6-10.4); MAGNESIUM 1.8 mg/dL (1.6-2.3)
[2017-04-13] MEDS: Betamethasone Valerate 0.1% Lotion (60 ml) TOP SCH ×2 (11:06→17:36)
[2017-04-13] MEDS: Ammonium Lactate 12% Lotion (225 g) EXT SCH ×2 (11:06→17:35)
[2017-04-13] MEDS: Saccharomyces Boulardi 250 mg Cap PO SCH ×2 (11:07→17:35)
[2017-04-13] MEDS: (Lantus) Insulin Glargine, Recombinant SC SCH ×2 (11:07→17:37)
--- NOTE | 2017-04-13 13:27 | CP.PCM.PN ---
<Wallace Schaffer H - Last Filed: 04/13/17 19:59> Subjective - Date & Time of Evaluation Date of Evaluation: 04/12/17 Time of Evaluation: 11:00 - Subjective Subjective: Dr. Elise progress note: Patient seen in room. He is complaining of productive cough with fever, chills , but less diarrhea. He says that his breathing is less difficult than yesterday. Patient was out. Objective - Vital Signs/Intake and Output Vital Signs (last 24 hours): Temp Pulse Resp BP Pulse Ox 97.9 F 77 20 150/73 95 04/13/17 07:47 04/13/17 07:47 04/13/17 07:47 04/13/17 07:47 04/13/17 07:47 Intake and Output: 04/13/17 04/13/17 06:59 18:59 Intake Total 1100 Output Total 700 Balance 400 - Medications Medications: Current Medications Albuterol/Ipratropium (Duoneb 3 Mg/0.5 Mg (3 Ml) Ud) 3 ml INH RQ4 [facility] Last Admin: 04/13/17 12:04 Dose: 3 ml Amlodipine Besylate (Norvasc) 5 mg PO DAILY [facility] Last Admin: 04/13/17 11:07 Dose: 5 mg Betamethasone Valerate (Betamethasone Valerate 0.1%) 0 ml TOP BID [facility] Last Admin: 04/13/17 11:06 Dose: 60 ml Ergocalciferol (Drisdol 50,000 Intl Units Cap) 1 cap PO Q7D [facility] Last Admin: 04/12/17 13:40 Dose: 1 cap Famotidine (Pepcid) 20 mg PO BID [facility] Last Admin: 04/13/17 11:06 Dose: 20 mg Fluconazole (Diflucan) 200 mg PO DAILY [facility] Last Admin: 04/13/17 11:07 Dose: 200 mg Guaifenesin/Dextromethorphan (Robitussin Dm) 10 ml PO Q4H PRN PRN Reason: Cough and congestion Last Admin: 04/09/17 21:41 Dose: 10 ml Imipenem/Cilastatin Sodium 500 (mg/ Sodium Chloride) 100 mls @ 100 mls/hr IVPB Q6 [facility] Last Admin: 04/13/17 05:54 Dose: 100 mls/hr Sodium Chloride (Sodium Chloride 0.9%) 1,000 mls @ 75 mls/hr IV .[id number] [facility] Last Admin: 04/12/17 23:25 Dose: Not Given Insulin Glargine (Lantus) 20 unit SC BID [facility] Last Admin: 04/13/17 11:07 Dose: 20 u Insulin Human Regular (Novolin R) 0 unit SC ACHS [facility] PRN Reason: Protocol Last Admin: 04/13/17 08:41 Dose: 2 unit Lactic Acid (Lac-Hydrin 12% Lotion (225 G)) 0 gm EXT BID [facility] Last Admin: 04/13/17 11:06 Dose: 1 applic Loperamide HCl (Imodium) 2 mg PO QID PRN PRN Reason: Diarrhea Losartan Potassium (Cozaar) 25 mg PO DAILY [facility] Last Admin: 04/13/17 11:06 Dose: 25 mg Metformin HCl (Glucophage) 500 mg PO BID [facility] Last Admin: 04/13/17 11:07 Dose: 500 mg Methylprednisolone (Solu-Medrol) 40 mg IVP Q8 [facility] Last Admin: 04/13/17 05:54 Dose: 40 mg Ondansetron HCl (Zofran Inj) 4 mg IVP Q6H PRN PRN Reason: Nausea/Vomiting Roflumilast (Daliresp) 500 mcg PO DAILY [facility] Last Admin: 04/13/17 11:07 Dose: 500 mcg Saccharomyces Boulardii (Florastor) 250 mg PO BID [facility] Last Admin: 04/13/17 11:07 Dose: 250 mg Fluticasone/Salmeterol (Advair Diskus 500/50) 1 puff INH RQ12 [facility] Last Admin: 04/13/17 08:26 Dose: 1 puff Tiotropium [place] (Spiriva) 18 mcg INH RQ24 [facility] Last Admin: 04/13/17 08:26 Dose: 18 mcg - Labs Labs: 04/13/17 08:43 04/13/17 08:43 PT 13.3 SECONDS (9.7-12.2) H 04/04/17 18:46 INR 1.2 04/04/17 18:46 APTT 40 SECONDS (21-34) H 04/04/17 18:46 - Constitutional Appears: Non-toxic, No Acute Distress - Head Exam Head Exam: NORMAL INSPECTION - Eye Exam Eye Exam: Normal appearance Pupil Exam: NORMAL ACCOMODATION - ENT Exam ENT Exam: Normal Exam - Respiratory Exam Respiratory Exam: Decreased Breath Sounds, Clear to Ausculation Bilateral, Rhonchi, Wheezes - Cardiovascular Exam Cardiovascular Exam: REGULAR RHYTHM, RRR, +S1, +S2. absent: Gallop, Rubs - GI/Abdominal Exam GI & Abdominal Exam: Soft, Normal Bowel Sounds. absent: Tenderness - Extremities Exam Extremities Exam: absent: Pedal Edema - Neurological Exam Neurological Exam: Oriented x3 - Psychiatric Exam Psychiatric exam: Normal Affect, Normal Mood - Skin Skin Exam: Rash Assessment and Plan - Assessment and Plan (Free Text) Assessment: Pneumonia: 04/13: Patient continues with productive cough, fever, and chills, day 4 IV antibiotics. he does sound a little better than yesterday. 04/12: Continue with isolation, continue antibiotics for now. day 3 of IV antibiotics. Patient continues to have significant wheezing/rhonchi/cough Sputum positive for ESBL. Infectious disease, Dr. Stewart, consulted. Help appreciated. Placed on droplet precautions Pipe Coverer And Insulator, Dr. Joseph consulted, help appreciated. Started on Primaxin 500 mg IVPB q6h Continue on Solumedrol 40mg IVP Q8h Continue Pulmicort 0.5 mg INH Q12h Continue Duonebs RQ4h scheduled Discontinue Albuterol 1.25 INH RQ3 prn wheezing Guaifenesin/Dextromethorphan 10 ml po q4h PRN for cough Continue Zithromax 250mg PO daily ROMIs negative x [address] w/o contrast: There are atelectatic/scarring changes both lung bases including on the lingular and middle lobe regions. Central lobular emphysematous changes with upper lobe predominance. There are also small bulla and/or of large bleb changes in the right lung apex and to a lesser degree left and at anterior upper lung field. Small calcific granuloma left lobe apex. Small nodule lateral aspect left upper lobe and another in the right lower lobe. Followup CT scan 3 months could be performed to assess stability. In situ IVC filter. (see full report) CXR- 04/04/17- Vague patchy opacity seen in the right lung base could represent atelectasis vs developing infiltrate. Minimal left basilar atelectasis. (Please see full report) Dysuria Urinalysis: yeast Urine Culture negative (04/09/17) Continue Diflucan 200 mg po daily Diarrhea c. 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 Prophylactic Measures Pepcid 20 mg po BID Held Heparin due to hx of retroperitoneal bleed <Jerry Elise - Last Filed: 04/21/17 14:42> Objective - Vital Signs/Intake and Output Vital Signs (last 24 hours): Temp Pulse Resp BP Pulse Ox 97.8 F 86 20 136/73 99 04/21/17 08:53 04/21/17 08:53 04/21/17 08:53 04/21/17 08:53 04/21/17 08:53 Intake and Output: 04/21/17 04/21/17 06:59 18:59 Output Total 350 Balance -350 - Medications Medications: Current Medications Albuterol/Ipratropium (Duoneb 3 Mg/0.5 Mg (3 Ml) Ud) 3 ml INH RQ4 [facility] Last Admin: 04/21/17 07:47 Dose: 3 ml Amlodipine Besylate (Norvasc) 5 mg PO DAILY [facility] Last Admin: 04/21/17 10:50 Dose: 5 mg Betamethasone Valerate (Betamethasone Valerate 0.1%) 0 ml TOP BID [facility] Last Admin: 04/21/17 10:51 Dose: 1 ml Ergocalciferol (Drisdol 50,000 Intl Units Cap) 1 cap PO Q7D [facility] Stop: 05/24/17 10:16 Glipizide (Glucotrol) 5 mg PO ACB [facility] Last Admin: 04/19/17 08:57 Dose: Not Given Guaifenesin/Dextromethorphan (Robitussin Dm) 10 ml PO Q4H PRN PRN Reason: Cough and congestion Last Admin: 04/15/17 10:16 Dose: 10 ml Imipenem/Cilastatin Sodium 500 (mg/ Sodium Chloride) 100 mls @ 100 mls/hr IVPB Q6 [facility] Last Admin: 04/21/17 14:22 Dose: 100 mls/hr Ibuprofen (Motrin Tab) 600 mg PO TID PRN PRN Reason: Pain, moderate (4-7) Last Admin: 04/21/17 01:58 Dose: 600 mg Insulin Glargine (Lantus) 10 unit SC BID [facility] Last Admin: 04/21/17 10:51 Dose: 10 units Insulin Human Regular (Novolin R) 0 unit SC ACHS [facility] PRN Reason: Protocol Last Admin: 04/21/17 10:51 Dose: Not Given Lactic Acid (Lac-Hydrin 12% Lotion (225 G)) 0 gm EXT BID [facility] Last Admin: 04/21/17 10:51 Dose: 1 applic Loperamide HCl (Imodium) 2 mg PO QID PRN PRN Reason: Diarrhea Losartan Potassium (Cozaar) 25 mg PO DAILY [facility] Last Admin: 04/21/17 10:50 Dose: 25 mg Metformin HCl (Glucophage) 500 mg PO BID [facility] Last Admin: 04/21/17 10:50 Dose: 500 mg Ondansetron HCl (Zofran Inj) 4 mg IVP Q6H PRN PRN Reason: Nausea/Vomiting Prednisone (Prednisone Tab) 30 mg PO DAILY [facility] Roflumilast (Daliresp) 500 mcg PO DAILY [facility] Last Admin: 04/21/17 10:50 Dose: 500 mcg Saccharomyces Boulardii (Florastor) 250 mg PO BID [facility] Last Admin: 04/21/17 14:23 Dose: 250 mg Fluticasone/Salmeterol (Advair Diskus 500/50) 1 puff INH RQ12 [facility] Last Admin: 04/21/17 07:47 Dose: 1 puff Tiotropium [place] (Spiriva) 18 mcg INH RQ24 [facility] Last Admin: 04/21/17 07:47 Dose: 18 mcg - Labs Labs: 04/21/17 07:19 04/21/17 07:19 PT 13.3 SECONDS (9.7-12.2) H 04/04/17 18:46 INR 1.2 04/04/17 18:46 APTT 40 SECONDS (21-34) H 04/04/17 18:46 Attending/Attestation - Attestation I have personally seen and examined this patient.: Yes I have fully participated in the care of the patient.: Yes I have reviewed all pertinent clinical information, including history, physical exam and plan: Yes Notes (Text): 04/21/17 14:42 Patient was seen and examined at bedside with the resident This is a late computer entry Continue current medical management I agree with the above history and physical and assessment/plan by the resident.
[2017-04-14] MEDS: Albuterol-Ipratrop 3 mg / 0.5 (3 ml) UD INH SCH ×7 (00:45→23:52)
[2017-04-14] MEDS: MethylPREDNISolone 40 mg Vial IVP SCH ×3 (05:50→22:10)
[2017-04-14 07:59] LABS: BASO % 0.3 % (0.0-2.0); EOS % 0.1 % (0.0-4.0); HEMATOCRIT 40.7 % (35.0-51.0); LYMPH # 1.6 K/uL (1.0-4.3); LYMPH % 12.5 % (20.0-40.0); MEAN CELL VOLUME 86.9 fL (80.0-94.0); MEAN CORPUSCULAR HEMOGLOBIN 28.1 pg (27.0-31.0); MEAN CORPUSCULAR HGB CONC 32.3 g/dL (33.0-37.0); MEAN PLATELET VOLUME 8.4 fL (7.2-11.7); MONO # 1.5 K/uL (0.0-0.8); MONO % 11.4 % (0.0-10.0); NRBC % 0.4 % (0.0-2.0); RED CELL DISTRIBUTION WIDTH 16.1 % (11.5-14.5); WHITE BLOOD COUNT 12.8 K/uL (4.8-10.8)
[2017-04-14] MEDS: (Novolin R) Insulin Human Regular 100 units/ml vial SC SCH ×4 (08:30→22:10)
[2017-04-14 08:49] LABS: ALB/GLOB RATIO 1.2 (1.0-2.1); ALKALINE PHOSPHATASE 39 U/L (38-126); ALT/SGPT 17 U/L (21-72); AST/SGOT 20 U/L (17-59); BILIRUBIN,TOTAL 0.6 mg/dL (0.2-1.3); BLOOD UREA NITROGEN 34 mg/dL (9-20); CALCIUM 8.7 mg/dl (8.6-10.4); CARBON DIOXIDE 28 mmol/L (22-30); CHLORIDE 100 mmol/L (98-107); GFR AFRICAN-AMERICAN > 60; GLUCOSE,RANDOM 108 mg/dL (75-110); MAGNESIUM 1.9 mg/dL (1.6-2.3); POTASSIUM 4.4 mmol/L (3.6-5.2); SODIUM 137 mmol/L (132-148); TOTAL PROTEIN 6.3 g/dL (6.3-8.3)
[2017-04-14] MEDS: Tiotropium 18 mcg Cap For Inhalation INH SCH (09:04)
[2017-04-14] MEDS: Fluticasone-Salmeterol 500-50mcg Diskus INH SCH ×2 (09:04→20:50)
--- NOTE | 2017-04-14 09:49 | CP.PCM.PN ---
<DoreneBetsy - Last Filed: 04/14/17 13:12> Subjective - Date & Time of Evaluation Date of Evaluation: 04/14/17 Time of Evaluation: 09:47 - Subjective Subjective: Patient seen and examined at bedside. He states that he is feeling better today although he is still coughing and it is productive of green sputum that is blood tinged. He states that his diarrhea has been "on and off". He denies any episodes of diarrhea today but states that he had an episode last night. He has not been asking for the Imodium His psoriasis has vastly improved in comparison to its severity upon admission. He is still using oxygen intermittently whenever he feels short of breath. The patient reports fever/ chills, night sweats, dysuria, suprapubic tenderness, and intermittent shortness of breath. Objective - Vital Signs/Intake and Output Vital Signs (last 24 hours): Temp Pulse Resp BP Pulse Ox 97.8 F 81 20 157/79 H 98 04/14/17 08:05 04/14/17 08:05 04/14/17 08:05 04/14/17 08:05 04/14/17 08:05 - Medications Medications: Current Medications Albuterol/Ipratropium (Duoneb 3 Mg/0.5 Mg (3 Ml) Ud) 3 ml INH RQ4 [facility] Last Admin: 04/14/17 09:03 Dose: 3 ml Amlodipine Besylate (Norvasc) 5 mg PO DAILY [facility] Last Admin: 04/13/17 11:07 Dose: 5 mg Betamethasone Valerate (Betamethasone Valerate 0.1%) 0 ml TOP BID [facility] Last Admin: 04/13/17 17:36 Dose: 60 ml Ergocalciferol (Drisdol 50,000 Intl Units Cap) 1 cap PO Q7D [facility] Last Admin: 04/12/17 13:40 Dose: 1 cap Famotidine (Pepcid) 20 mg PO BID [facility] Last Admin: 04/13/17 17:35 Dose: 20 mg Fluconazole (Diflucan) 200 mg PO DAILY [facility] Last Admin: 04/13/17 11:07 Dose: 200 mg Guaifenesin/Dextromethorphan (Robitussin Dm) 10 ml PO Q4H PRN PRN Reason: Cough and congestion Last Admin: 04/09/17 21:41 Dose: 10 ml Imipenem/Cilastatin Sodium 500 (mg/ Sodium Chloride) 100 mls @ 100 mls/hr IVPB Q6 [facility] Last Admin: 04/14/17 05:46 Dose: 100 mls/hr Sodium Chloride (Sodium Chloride 0.9%) 1,000 mls @ 75 mls/hr IV .[id number] [facility] Last Admin: 04/12/17 23:25 Dose: Not Given Insulin Glargine (Lantus) 20 unit SC BID [facility] Last Admin: 04/13/17 17:37 Dose: 20 u Insulin Human Regular (Novolin R) 0 unit SC ACHS [facility] PRN Reason: Protocol Last Admin: 04/14/17 08:30 Dose: Not Given Lactic Acid (Lac-Hydrin 12% Lotion (225 G)) 0 gm EXT BID [facility] Last Admin: 04/13/17 17:35 Dose: 1 applic Loperamide HCl (Imodium) 2 mg PO QID PRN PRN Reason: Diarrhea Losartan Potassium (Cozaar) 25 mg PO DAILY [facility] Last Admin: 04/13/17 11:06 Dose: 25 mg Metformin HCl (Glucophage) 500 mg PO BID [facility] Last Admin: 04/13/17 17:35 Dose: 500 mg Methylprednisolone (Solu-Medrol) 40 mg IVP Q8 [facility] Last Admin: 04/14/17 05:50 Dose: 40 mg Ondansetron HCl (Zofran Inj) 4 mg IVP Q6H PRN PRN Reason: Nausea/Vomiting Roflumilast (Daliresp) 500 mcg PO DAILY [facility] Last Admin: 04/13/17 11:07 Dose: 500 mcg Saccharomyces Boulardii (Florastor) 250 mg PO BID [facility] Last Admin: 04/13/17 17:35 Dose: 250 mg Fluticasone/Salmeterol (Advair Diskus 500/50) 1 puff INH RQ12 [facility] Last Admin: 04/14/17 09:04 Dose: 1 puff Tiotropium [place] (Spiriva) 18 mcg INH RQ24 [facility] Last Admin: 04/14/17 09:04 Dose: 18 mcg - Labs Labs: 04/14/17 07:44 04/14/17 07:44 PT 13.3 SECONDS (9.7-12.2) H 04/04/17 18:46 INR 1.2 04/04/17 18:46 APTT 40 SECONDS (21-34) H 04/04/17 18:46 - Constitutional Appears: Non-toxic, No Acute Distress - Head Exam Head Exam: ATRAUMATIC, NORMAL INSPECTION, NORMOCEPHALIC - Eye Exam Eye Exam: EOMI, Normal appearance, PERRL - ENT Exam ENT Exam: Mucous Membranes Moist - Neck Exam Neck Exam: Full ROM - Respiratory Exam Respiratory Exam: Wheezes. absent: Clear to Ausculation Bilateral Additional comments: cough exacerbated with deep inspiration - Cardiovascular Exam Cardiovascular Exam: +S1, +S2. absent: Tachycardia, Murmur - GI/Abdominal Exam GI & Abdominal Exam: Soft, Tenderness, Normal Bowel Sounds. absent: Distended, Firm Additional comments: tenderness to palpation of left lower abdominal quadrant/pelvis - Extremities Exam Extremities Exam: Full ROM. absent: Pedal Edema, Tenderness - Back Exam Back Exam: NORMAL INSPECTION. absent: tenderness - Neurological Exam Neurological Exam: Alert, Awake, Oriented x3 - Psychiatric Exam Psychiatric exam: Normal Affect, Normal Mood - Skin Additional comments: well-circumscribed scaly plaques to upper extremities, trunk and lower extremities which have significantly improved. Clearing noted particularly to LE. Assessment and Plan - Assessment and Plan (Free Text) Assessment: COPD Exacerbation likely secondary to acute bronchitis Patient continues to have significant wheezing and cough despite discontinuation of ZHANNA-I Sputum positive for ESBL. Infectious disease, Dr. Stewart, consulted. Help appreciated. Placed on droplet precautions Asp Net Developer, Dr. Joseph consulted, help appreciated. Per Dr. Joseph, patient likely has COPD exacerbation from acute bronchitis. ZHANNA-I discontinued and patient started on Losartan 25 mg po daily. Patient also started on Roflumilast 500 mcg po daily and Spiriva 18 mcg INH RQ24h. Continue on Primaxin 500 mg IVPB q6h Continue on Solumedrol 40mg IVP Q8h Continue Pulmicort 0.5 mg INH Q12h Continue Duonebs RQ4h scheduled Discontinue Albuterol 1.25 INH RQ3 prn wheezing Guaifenesin/Dextromethorphan 10 ml po q4h PRN for cough Discontinued Zithromax 250mg PO daily ROMIs negative x [address] w/o contrast: There are atelectatic/scarring changes both lung bases including on the lingular and middle lobe regions. Central lobular emphysematous changes with upper lobe predominance. There are also small bulla and/or of large bleb changes in the right lung apex and to a lesser degree left and at anterior upper lung field. Small calcific granuloma left lobe apex. Small nodule lateral aspect left upper lobe and another in the right lower lobe. Followup CT scan 3 months could be performed to assess stability. In situ IVC filter. (see full report) CXR- 04/04/17- Vague patchy opacity seen in the right lung base could represent atelectasis vs developing infiltrate. Minimal left basilar atelectasis. (Please see full report) Dysuria Continues to complain of dysuria follow-up repeat urinalysis and culture Urinalysis: yeast Urine Culture negative (04/09/17) Continue Diflucan 200 mg po daily Diarrhea c. 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 Will stop Betamethasone after this week and try pulse therapy. Nursing communication order for topical lotion to set at bedside for other affected areas. Prophylactic Measures Pepcid 20 mg po BID Held Heparin due to hx of retroperitoneal bleed <Charles Preciado H - Last Filed: 04/14/17 16:09> Objective - Vital Signs/Intake and Output Vital Signs (last 24 hours): Temp Pulse Resp BP Pulse Ox 97.8 F 81 20 157/79 H 98 04/14/17 08:05 04/14/17 08:05 04/14/17 08:05 04/14/17 08:05 04/14/17 08:05 Intake and Output: 04/14/17 04/14/17 06:59 18:59 Intake Total 580 Balance 580 - Medications Medications: Current Medications Albuterol/Ipratropium (Duoneb 3 Mg/0.5 Mg (3 Ml) Ud) 3 ml INH RQ4 [facility] Last Admin: 04/14/17 13:31 Dose: 3 ml Amlodipine Besylate (Norvasc) 5 mg PO DAILY [facility] Last Admin: 04/14/17 10:26 Dose: 5 mg Betamethasone Valerate (Betamethasone Valerate 0.1%) 0 ml TOP BID [facility] Last Admin: 04/14/17 10:25 Dose: 1 ml Ergocalciferol (Drisdol 50,000 Intl Units Cap) 1 cap PO Q7D [facility] Last Admin: 04/12/17 13:40 Dose: 1 cap Famotidine (Pepcid) 20 mg PO BID [facility] Last Admin: 04/14/17 10:24 Dose: 20 mg Fluconazole (Diflucan) 200 mg PO DAILY [facility] Last Admin: 04/14/17 10:24 Dose: 200 mg Glipizide (Glucotrol) 5 mg PO ACB [facility] Guaifenesin/Dextromethorphan (Robitussin Dm) 10 ml PO Q4H PRN PRN Reason: Cough and congestion Last Admin: 04/14/17 13:22 Dose: 10 ml Imipenem/Cilastatin Sodium 500 (mg/ Sodium Chloride) 100 mls @ 100 mls/hr IVPB Q6 [facility] Last Admin: 04/14/17 13:17 Dose: 100 mls/hr Sodium Chloride (Sodium Chloride 0.9%) 1,000 mls @ 75 mls/hr IV .[id number] [facility] Last Admin: 04/12/17 23:25 Dose: Not Given Insulin Glargine (Lantus) 20 unit SC BID [facility] Last Admin: 04/14/17 10:23 Dose: 20 u Insulin Human Regular (Novolin R) 0 unit SC ACHS [facility] PRN Reason: Protocol Last Admin: 04/14/17 13:17 Dose: 2 unit Lactic Acid (Lac-Hydrin 12% Lotion (225 G)) 0 gm EXT BID [facility] Last Admin: 04/14/17 10:25 Dose: 1 applic Loperamide HCl (Imodium) 2 mg PO QID PRN PRN Reason: Diarrhea Losartan Potassium (Cozaar) 25 mg PO DAILY [facility] Last Admin: 04/14/17 10:24 Dose: 25 mg Metformin HCl (Glucophage) 500 mg PO BID [facility] Last Admin: 04/14/17 10:24 Dose: 500 mg Methylprednisolone (Solu-Medrol) 40 mg IVP Q8 [facility] Last Admin: 04/14/17 13:16 Dose: 40 mg Ondansetron HCl (Zofran Inj) 4 mg IVP Q6H PRN PRN Reason: Nausea/Vomiting Roflumilast (Daliresp) 500 mcg PO DAILY [facility] Last Admin: 04/14/17 10:24 Dose: 500 mcg Saccharomyces Boulardii (Florastor) 250 mg PO BID [facility] Last Admin: 04/14/17 10:43 Dose: 250 mg Fluticasone/Salmeterol (Advair Diskus 500/50) 1 puff INH RQ12 [facility] Last Admin: 04/14/17 09:04 Dose: 1 puff Tiotropium [place] (Spiriva) 18 mcg INH RQ24 [facility] Last Admin: 04/14/17 09:04 Dose: 18 mcg - Labs Labs: 04/14/17 07:44 04/14/17 07:44 PT 13.3 SECONDS (9.7-12.2) H 04/04/17 18:46 INR 1.2 04/04/17 18:46 APTT 40 SECONDS (21-34) H 04/04/17 18:46 Attending/Attestation - Attestation I have personally seen and examined this patient.: Yes I have fully participated in the care of the patient.: Yes I have reviewed all pertinent clinical information, including history, physical exam and plan: Yes Notes (Text): 04/14/17 16:04 Medical Attending: Patient was seen and examined by me as well. Agree with the above note by the resident. We saw the patient together. The patient grew out E coli in the sputum so continues to be on IV primaxin. Recheck sputum again. The blood cultures have been negative so far. He reports his breathing does seem to be improving each day he has been here. Charles Preciado
[2017-04-14] MEDS: (Lantus) Insulin Glargine, Recombinant SC SCH ×2 (10:23→18:45)
[2017-04-14] MEDS: Ammonium Lactate 12% Lotion (225 g) EXT SCH ×2 (10:25→17:32)
[2017-04-14] MEDS: Betamethasone Valerate 0.1% Lotion (60 ml) TOP SCH ×2 (10:25→17:32)
[2017-04-14] MEDS: Saccharomyces Boulardi 250 mg Cap PO SCH ×2 (10:43→17:31)
[2017-04-14] MEDS: guaiFENesin DM 200 mg-20 mg/10 ml UD PO PRN (13:22)
--- NOTE | 2017-04-14 14:29 | PN ---
DATE: 04/14/2017 SUBJECTIVE: The patient is still in isolation. He is still wheezing and coughing. He says he had g reenish sputum with blood production. He has had previous TB (tuberculosis). He says at this time s clarke he has been having sputum with bloody drainage, will get AFBs also done. He is on imipenem as h e had a resistant organism. He is still wheezing and he also complains of dysuria. Urine culture okeefe s already been ordered by the resident. PHYSICAL EXAMINATION: VITAL SIGNS: T-max right now is 97.8, pulse 81, blood pressure 157/79, respirations are 20. HEENT: Head is atraumatic, normocephalic. NECK: Supple. LUNGS: Have bilateral expiratory wheeze. HEART: S1, S2 regular. ABDOMEN: Soft, nontender, no guarding, no rigidity present. EXTREMITIES: Have no edema at this time. LABORATORY DATA: Noted. Labs show white count is 12.8, and creatinine is 0.8. He had ESBL in the s putum. IMPRESSION AND PLAN: He has acute exacerbation of chronic obstructive pulmonary disease and pneumoni a, previous history tuberculosis. He also complains of dysuria. Will repeat his labs and will haylee nue Primaxin at this time. He is also having some diarrhea and will check for C. diff. Jaylen Stewart MD cc: [id number] TT: 04/14/2017 14:28:50 Confirmation # [id number] Dictation # [id number] true
[2017-04-14] MEDS: Sodium Chloride 0.9% 1,000 ML IV SCH (16:32)
[2017-04-14 20:58] LABS: RBC URINE 1 /hpf (0-3); URINE BACTERIA RARE (<OCC); URINE BILIRUBIN NEGATIVE (NEGATIVE); URINE BLOOD NEGATIVE (NEGATIVE); URINE COLOR Yellow (YELLOW); URINE GLUCOSE (UA) 1+ mg/dL (Normal); URINE KETONE NEGATIVE (NEGATIVE); URINE LEUKOCYTE ESTERASE NEG Leu/uL (Negative); URINE PROTEIN NEGATIVE (NEGATIVE); URINE UROBILINOGEN NORMAL mg/dL (0.2-1.0); WBC URINE 1 /hpf (0-5)
[2017-04-15] MEDS: Albuterol-Ipratrop 3 mg / 0.5 (3 ml) UD INH SCH ×6 (03:16→23:52)
[2017-04-15] MEDS: Sodium Chloride 0.9% 1,000 ML IV SCH (04:09)
[2017-04-15] MEDS: MethylPREDNISolone 40 mg Vial IVP SCH ×4 (06:19→23:54)
[2017-04-15] MEDS: (Novolin R) Insulin Human Regular 100 units/ml vial SC SCH ×3 (08:07→17:32)
[2017-04-15] MEDS: Fluticasone-Salmeterol 500-50mcg Diskus INH SCH ×2 (08:35→19:55)
[2017-04-15] MEDS: Tiotropium 18 mcg Cap For Inhalation INH SCH (08:35)
[2017-04-15 08:38] LABS: BASO % 0.3 % (0.0-2.0); EOS % 0.1 % (0.0-4.0); HEMATOCRIT 39.1 % (35.0-51.0); LYMPH # 1.1 K/uL (1.0-4.3); LYMPH % 10.3 % (20.0-40.0); MEAN CELL VOLUME 87.3 fL (80.0-94.0); MEAN CORPUSCULAR HEMOGLOBIN 28.1 pg (27.0-31.0); MEAN CORPUSCULAR HGB CONC 32.2 g/dL (33.0-37.0); MEAN PLATELET VOLUME 8.4 fL (7.2-11.7); MONO # 1.2 K/uL (0.0-0.8); MONO % 10.8 % (0.0-10.0); NRBC % 0.2 % (0.0-2.0); RED CELL DISTRIBUTION WIDTH 16.4 % (11.5-14.5); WHITE BLOOD COUNT 10.8 K/uL (4.8-10.8)
[2017-04-15 08:54] LABS: CHLORIDE 98 mmol/L (98-107)
[2017-04-15 08:55] LABS: SODIUM 134 mmol/L (132-148)
[2017-04-15 08:57] LABS: ALB/GLOB RATIO 1.2 (1.0-2.1); AST/SGOT 19 U/L (17-59); BILIRUBIN,TOTAL 0.6 mg/dL (0.2-1.3); CARBON DIOXIDE 29 mmol/L (22-30); GFR AFRICAN-AMERICAN > 60; TOTAL PROTEIN 5.7 g/dL (6.3-8.3)
[2017-04-15 08:58] LABS: ALKALINE PHOSPHATASE 39 U/L (38-126); ALT/SGPT 16 U/L (21-72); BLOOD UREA NITROGEN 34 mg/dL (9-20); CALCIUM 8.2 mg/dl (8.6-10.4); GLUCOSE,RANDOM 95 mg/dL (75-110); MAGNESIUM 1.8 mg/dL (1.6-2.3)
--- NOTE | 2017-04-15 09:59 | CP.PCM.PN ---
<Betsy Catherine - Last Filed: 04/15/17 11:35> Subjective - Date & Time of Evaluation Date of Evaluation: 04/15/17 Time of Evaluation: 09:54 - Subjective Subjective: Patient seen and examined at bedside. He states that he is still experiencing continued intermittent shortness of breath, cough, and sputum production with blood. He noted overall he feels that his pulmonary symptoms are gradually improving, however, he is now complaining of chest soreness. He noticed some blood in his most recent episode of diarrhea and it was associated with pain. He is still experiencing dysuria and states that he is urinating every 5 minutes. He has been ambulating on the floors with his cane. The patient reports fever/chills, sweating, nausea, vomiting, diarrhea, abdominal pain, chest soreness, shortness of breath, and sputum production. Objective - Vital Signs/Intake and Output Vital Signs (last 24 hours): Temp Pulse Resp BP Pulse Ox 97.6 F 77 20 146/71 97 04/14/17 23:25 04/14/17 23:25 04/14/17 23:25 04/14/17 23:25 04/14/17 23:25 Intake and Output: 04/15/17 04/15/17 06:59 18:59 Intake Total 1400 Balance 1400 - Medications Medications: Current Medications Albuterol/Ipratropium (Duoneb 3 Mg/0.5 Mg (3 Ml) Ud) 3 ml INH RQ4 [facility] Last Admin: 04/15/17 08:34 Dose: 3 ml Amlodipine Besylate (Norvasc) 5 mg PO DAILY [facility] Last Admin: 04/14/17 10:26 Dose: 5 mg Betamethasone Valerate (Betamethasone Valerate 0.1%) 0 ml TOP BID [facility] Last Admin: 04/14/17 17:32 Dose: 60 ml Ergocalciferol (Drisdol 50,000 Intl Units Cap) 1 cap PO Q7D [facility] Last Admin: 04/12/17 13:40 Dose: 1 cap Famotidine (Pepcid) 20 mg PO BID [facility] Last Admin: 04/14/17 17:31 Dose: 20 mg Fluconazole (Diflucan) 200 mg PO DAILY [facility] Last Admin: 04/14/17 10:24 Dose: 200 mg Glipizide (Glucotrol) 5 mg PO ACB [facility] Guaifenesin/Dextromethorphan (Robitussin Dm) 10 ml PO Q4H PRN PRN Reason: Cough and congestion Last Admin: 04/14/17 13:22 Dose: 10 ml Imipenem/Cilastatin Sodium 500 (mg/ Sodium Chloride) 100 mls @ 100 mls/hr IVPB Q6 [facility] Last Admin: 04/15/17 06:19 Dose: 100 mls/hr Sodium Chloride (Sodium Chloride 0.9%) 1,000 mls @ 75 mls/hr IV .[id number] [facility] Last Admin: 04/15/17 04:09 Dose: Not Given Insulin Glargine (Lantus) 20 unit SC BID [facility] Last Admin: 04/14/17 18:45 Dose: 20 units Insulin Human Regular (Novolin R) 0 unit SC ACHS [facility] PRN Reason: Protocol Last Admin: 04/15/17 08:07 Dose: Not Given Lactic Acid (Lac-Hydrin 12% Lotion (225 G)) 0 gm EXT BID [facility] Last Admin: 04/14/17 17:32 Dose: 1 applic Lactic Acid (Lac-Hydrin 12% Lotion (225 G)) 0 gm EXT BID [facility] Loperamide HCl (Imodium) 2 mg PO QID PRN PRN Reason: Diarrhea Losartan Potassium (Cozaar) 25 mg PO DAILY [facility] Last Admin: 04/14/17 10:24 Dose: 25 mg Metformin HCl (Glucophage) 500 mg PO BID [facility] Last Admin: 04/14/17 17:31 Dose: 500 mg Methylprednisolone (Solu-Medrol) 40 mg IVP Q8 [facility] Last Admin: 04/15/17 06:19 Dose: 40 mg Ondansetron HCl (Zofran Inj) 4 mg IVP Q6H PRN PRN Reason: Nausea/Vomiting Roflumilast (Daliresp) 500 mcg PO DAILY [facility] Last Admin: 04/14/17 10:24 Dose: 500 mcg Saccharomyces Boulardii (Florastor) 250 mg PO BID [facility] Last Admin: 04/14/17 17:31 Dose: 250 mg Fluticasone/Salmeterol (Advair Diskus 500/50) 1 puff INH RQ12 [facility] Last Admin: 04/15/17 08:35 Dose: 1 puff Tiotropium Welcome (Spiriva) 18 mcg INH RQ24 [facility] Last Admin: 04/15/17 08:35 Dose: 18 mcg - Labs Labs: 04/15/17 08:29 04/15/17 08:29 PT 13.3 SECONDS (9.7-12.2) H 04/04/17 18:46 INR 1.2 04/04/17 18:46 APTT 40 SECONDS (21-34) H 04/04/17 18:46 - Constitutional Appears: Non-toxic, No Acute Distress - Head Exam Head Exam: ATRAUMATIC, NORMAL INSPECTION, NORMOCEPHALIC - Eye Exam Eye Exam: EOMI, Normal appearance, PERRL - ENT Exam ENT Exam: Mucous Membranes Moist - Neck Exam Neck Exam: Full ROM, Normal Inspection - Respiratory Exam Respiratory Exam: Clear to Ausculation Bilateral, Wheezes, NORMAL BREATHING PATTERN. absent: Rales, Rhonchi Additional comments: wheezing present but greatly improved. - Cardiovascular Exam Cardiovascular Exam: +S1, +S2. absent: Bradycardia, Tachycardia, Murmur - GI/Abdominal Exam GI & Abdominal Exam: Soft, Tenderness, Normal Bowel Sounds Additional comments: tenderness to palpation to left lower quadrant - Extremities Exam Extremities Exam: Normal Inspection. absent: Pedal Edema, Tenderness - Neurological Exam Neurological Exam: Alert, Awake, Oriented x3 - Psychiatric Exam Psychiatric exam: Normal Affect, Normal Mood - Skin Additional comments: Near complete clearing of scale to bilateral lower extremities Hyperpigmented plaques to upper extremities lacking scale Assessment and Plan - Assessment and Plan (Free Text) Assessment: COPD Exacerbation likely secondary to acute bronchitis Wheezing has significantly improved Leukocytosis improved to 10.8 from 12.8 Cough continued despite discontinuation of ZHANNA-I f/u repeat sputum culture Sputum positive for ESBL. Infectious disease, Dr. Stewart, consulted. Help appreciated. Placed on droplet precautions Program Support Specialist, Dr. Joseph consulted, help appreciated. Per Dr. Joseph, patient likely has COPD exacerbation from acute bronchitis. ZHANNA-I discontinued and patient started on Losartan 25 mg po daily. Patient also started on Roflumilast 500 mcg po daily and Spiriva 18 mcg INH RQ24h. Continue on Primaxin 500 mg IVPB q6h Continue on Solumedrol 40mg IVP Q8h Continue Pulmicort 0.5 mg INH Q12h Continue Duonebs RQ4h scheduled Discontinue Albuterol 1.25 INH RQ3 prn wheezing Guaifenesin/Dextromethorphan 10 ml po q4h PRN for cough Discontinued Zithromax 250mg PO daily ROMIs negative x [address] w/o contrast: There are atelectatic/scarring changes both lung bases including on the lingular and middle lobe regions. Central lobular emphysematous changes with upper lobe predominance. There are also small bulla and/or of large bleb changes in the right lung apex and to a lesser degree left and at anterior upper lung field. Small calcific granuloma left lobe apex. Small nodule lateral aspect left upper lobe and another in the right lower lobe. Followup CT scan 3 months could be performed to assess stability. In situ IVC filter. (see full report) CXR- 04/04/17- Vague patchy opacity seen in the right lung base could represent atelectasis vs developing infiltrate. Minimal left basilar atelectasis. (Please see full report) Dysuria Continues to complain of dysuria and frequency f/u UA: negative f/u urine culture Urinalysis: yeast Urine Culture negative (04/09/17) Continue Diflucan 200 mg po daily Diarrhea c. diff negative Patient noted blood per stool. 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 Will stop Betamethasone after this week and try pulse therapy. Nursing communication order for topical lotion to set at bedside for other affected areas. Prophylactic Measures Pepcid 20 mg po BID Held Heparin due to hx of retroperitoneal bleed <Charles Preciado - Last Filed: 04/15/17 15:33> Objective - Vital Signs/Intake and Output Vital Signs (last 24 hours): Temp Pulse Resp BP Pulse Ox 97.6 F 89 20 146/76 95 04/15/17 08:00 04/15/17 08:00 04/15/17 08:00 04/15/17 08:00 04/15/17 08:00 Intake and Output: 04/15/17 04/15/17 06:59 18:59 Intake Total 1400 Balance 1400 - Medications Medications: Current Medications Albuterol/Ipratropium (Duoneb 3 Mg/0.5 Mg (3 Ml) Ud) 3 ml INH RQ4 [facility] Last Admin: 04/15/17 13:29 Dose: 3 ml Amlodipine Besylate (Norvasc) 5 mg PO DAILY [facility] Last Admin: 04/15/17 10:16 Dose: 5 mg Betamethasone Valerate (Betamethasone Valerate 0.1%) 0 ml TOP BID [facility] Last Admin: 04/15/17 10:17 Dose: 1 ml Ergocalciferol (Drisdol 50,000 Intl Units Cap) 1 cap PO Q7D [facility] Last Admin: 04/12/17 13:40 Dose: 1 cap Famotidine (Pepcid) 20 mg PO BID [facility] Last Admin: 04/15/17 10:16 Dose: 20 mg Fluconazole (Diflucan) 200 mg PO DAILY [facility] Last Admin: 04/15/17 10:16 Dose: 200 mg Glipizide (Glucotrol) 5 mg PO ACB [facility] Last Admin: 04/15/17 10:16 Dose: 5 mg Guaifenesin/Dextromethorphan (Robitussin Dm) 10 ml PO Q4H PRN PRN Reason: Cough and congestion Last Admin: 04/15/17 10:16 Dose: 10 ml Imipenem/Cilastatin Sodium 500 (mg/ Sodium Chloride) 100 mls @ 100 mls/hr IVPB Q6 [facility] Last Admin: 04/15/17 13:47 Dose: 100 mls/hr Insulin Glargine (Lantus) 20 unit SC BID [facility] Last Admin: 04/15/17 10:16 Dose: 20 units Insulin Human Regular (Novolin R) 0 unit SC ACHS [facility] PRN Reason: Protocol Last Admin: 04/15/17 13:54 Dose: 2 unit Lactic Acid (Lac-Hydrin 12% Lotion (225 G)) 0 gm EXT BID [facility] Last Admin: 04/15/17 10:17 Dose: 1 applic Lactic Acid (Lac-Hydrin 12% Lotion (225 G)) 0 gm EXT BID [facility] Last Admin: 04/15/17 10:17 Dose: Not Given Loperamide HCl (Imodium) 2 mg PO QID PRN PRN Reason: Diarrhea Losartan Potassium (Cozaar) 25 mg PO DAILY [facility] Last Admin: 04/15/17 10:16 Dose: 25 mg Metformin HCl (Glucophage) 500 mg PO BID [facility] Last Admin: 04/15/17 10:16 Dose: 500 mg Methylprednisolone (Solu-Medrol) 20 mg IVP Q6 [facility] Last Admin: 04/15/17 13:47 Dose: 20 mg Ondansetron HCl (Zofran Inj) 4 mg IVP Q6H PRN PRN Reason: Nausea/Vomiting Roflumilast (Daliresp) 500 mcg PO DAILY [facility] Last Admin: 04/15/17 10:16 Dose: 500 mcg Saccharomyces Boulardii (Florastor) 250 mg PO BID [facility] Last Admin: 04/15/17 10:16 Dose: 250 mg Fluticasone/Salmeterol (Advair Diskus 500/50) 1 puff INH RQ12 [facility] Last Admin: 04/15/17 08:35 Dose: 1 puff Tiotropium Welcome (Spiriva) 18 mcg INH RQ24 [facility] Last Admin: 04/15/17 08:35 Dose: 18 mcg - Labs Labs: 04/15/17 08:29 04/15/17 08:29 PT 13.3 SECONDS (9.7-12.2) H 04/04/17 18:46 INR 1.2 04/04/17 18:46 APTT 40 SECONDS (21-34) H 04/04/17 18:46 Attending/Attestation - Attestation I have personally seen and examined this patient.: Yes I have fully participated in the care of the patient.: Yes I have reviewed all pertinent clinical information, including history, physical exam and plan: Yes Notes (Text): Medical Attending: Patient was seen and examined by me. Agree with the above note by the resident. His solumedrol was decreased to BID today. Also he remains on IV primaxin due to the ESBL E coli+ on sputum culture.
[2017-04-15] MEDS: guaiFENesin DM 200 mg-20 mg/10 ml UD PO PRN (10:16)
[2017-04-15] MEDS: Saccharomyces Boulardi 250 mg Cap PO SCH ×2 (10:16→18:32)
[2017-04-15] MEDS: (Lantus) Insulin Glargine, Recombinant SC SCH (10:16)
[2017-04-15] MEDS: Betamethasone Valerate 0.1% Lotion (60 ml) TOP SCH ×2 (10:17→18:31)
[2017-04-15] MEDS: Ammonium Lactate 12% Lotion (225 g) EXT SCH ×4 (10:17→18:37)
[2017-04-16] MEDS: Albuterol-Ipratrop 3 mg / 0.5 (3 ml) UD INH SCH ×6 (03:08→23:38)
[2017-04-16] MEDS: MethylPREDNISolone 40 mg Vial IVP SCH ×3 (06:04→18:05)
[2017-04-16 06:47] LABS: CHLORIDE 99 mmol/L (98-107)
[2017-04-16 06:48] LABS: POTASSIUM 3.9 mmol/L (3.6-5.2); SODIUM 134 mmol/L (132-148)
[2017-04-16 06:50] LABS: CARBON DIOXIDE 27 mmol/L (22-30); GFR AFRICAN-AMERICAN > 60
[2017-04-16 06:51] LABS: ALB/GLOB RATIO 1.2 (1.0-2.1); ALKALINE PHOSPHATASE 37 U/L (38-126); ALT/SGPT 14 U/L (21-72); AST/SGOT 20 U/L (17-59); BILIRUBIN,TOTAL 0.6 mg/dL (0.2-1.3); BLOOD UREA NITROGEN 31 mg/dL (9-20); CALCIUM 8.1 mg/dl (8.6-10.4); GLUCOSE,RANDOM 82 mg/dL (75-110); MAGNESIUM 1.9 mg/dL (1.6-2.3); TOTAL PROTEIN 5.5 g/dL (6.3-8.3)
[2017-04-16 07:02] LABS: BASO # 0.1 K/uL (0.0-0.2); BASO % 0.4 % (0.0-2.0); HEMATOCRIT 38.1 % (35.0-51.0); LYMPH # 0.9 K/uL (1.0-4.3); LYMPH % 7.8 % (20.0-40.0); MEAN CELL VOLUME 86.7 fL (80.0-94.0); MEAN CORPUSCULAR HGB CONC 32.3 g/dL (33.0-37.0); MEAN PLATELET VOLUME 8.6 fL (7.2-11.7); MONO # 0.9 K/uL (0.0-0.8); MONO % 8.2 % (0.0-10.0); NRBC % 0.1 % (0.0-2.0); PLATELET COUNT 230 K/uL (130-400); RED CELL DISTRIBUTION WIDTH 16.6 % (11.5-14.5); WHITE BLOOD COUNT 11.4 K/uL (4.8-10.8)
--- NOTE | 2017-04-16 07:46 | CP.PCM.PN ---
<RichardBetsy salinas - Last Filed: 04/16/17 13:32> Subjective - Date & Time of Evaluation Date of Evaluation: 04/16/17 Time of Evaluation: 07:45 - Subjective Subjective: Pt seen and examined at bedside. Patient reports his breathing has improved and is coughing less. Cough is still productive of green sputum. Patient denies fever or chills. He continues to complain of lower abdominal pain exacerbated on valsalva movements. He also states the pain is exacerbated with ambulation. He denies chest pain, palpitations, nausea, and vomiting. Patient denies blood in stool. His psoriasis continues to improve. Objective - Vital Signs/Intake and Output Vital Signs (last 24 hours): Temp Pulse Resp BP Pulse Ox 97.6 F 76 20 135/69 99 04/15/17 23:42 04/15/17 23:42 04/15/17 23:42 04/15/17 23:42 04/15/17 23:42 Intake and Output: 04/16/17 04/16/17 06:59 18:59 Intake Total 400 Balance 400 - Medications Medications: Current Medications Albuterol/Ipratropium (Duoneb 3 Mg/0.5 Mg (3 Ml) Ud) 3 ml INH RQ4 [facility] Last Admin: 04/16/17 03:08 Dose: Not Given Amlodipine Besylate (Norvasc) 5 mg PO DAILY [facility] Last Admin: 04/15/17 10:16 Dose: 5 mg Betamethasone Valerate (Betamethasone Valerate 0.1%) 0 ml TOP BID [facility] Last Admin: 04/15/17 18:31 Dose: 60 ml Ergocalciferol (Drisdol 50,000 Intl Units Cap) 1 cap PO Q7D [facility] Last Admin: 04/12/17 13:40 Dose: 1 cap Famotidine (Pepcid) 20 mg PO BID [facility] Last Admin: 04/15/17 18:32 Dose: 20 mg Fluconazole (Diflucan) 200 mg PO DAILY [facility] Last Admin: 04/15/17 10:16 Dose: 200 mg Glipizide (Glucotrol) 5 mg PO ACB [facility] Last Admin: 04/15/17 10:16 Dose: 5 mg Guaifenesin/Dextromethorphan (Robitussin Dm) 10 ml PO Q4H PRN PRN Reason: Cough and congestion Last Admin: 04/15/17 10:16 Dose: 10 ml Imipenem/Cilastatin Sodium 500 (mg/ Sodium Chloride) 100 mls @ 100 mls/hr IVPB Q6 [facility] Last Admin: 04/16/17 06:05 Dose: 100 mls/hr Insulin Glargine (Lantus) 20 unit SC BID [facility] Last Admin: 04/15/17 10:16 Dose: 20 units Insulin Human Regular (Novolin R) 0 unit SC ACHS [facility] PRN Reason: Protocol Last Admin: 04/15/17 17:32 Dose: Not Given Lactic Acid (Lac-Hydrin 12% Lotion (225 G)) 0 gm EXT BID [facility] Last Admin: 04/15/17 18:33 Dose: 1 applic Lactic Acid (Lac-Hydrin 12% Lotion (225 G)) 0 gm EXT BID [facility] Last Admin: 04/15/17 18:37 Dose: 1 applic Loperamide HCl (Imodium) 2 mg PO QID PRN PRN Reason: Diarrhea Losartan Potassium (Cozaar) 25 mg PO DAILY [facility] Last Admin: 04/15/17 10:16 Dose: 25 mg Metformin HCl (Glucophage) 500 mg PO BID [facility] Last Admin: 04/15/17 18:32 Dose: 500 mg Methylprednisolone (Solu-Medrol) 20 mg IVP Q6 [facility] Last Admin: 04/16/17 06:04 Dose: 20 mg Ondansetron HCl (Zofran Inj) 4 mg IVP Q6H PRN PRN Reason: Nausea/Vomiting Roflumilast (Daliresp) 500 mcg PO DAILY [facility] Last Admin: 04/15/17 10:16 Dose: 500 mcg Saccharomyces Boulardii (Florastor) 250 mg PO BID [facility] Last Admin: 04/15/17 18:32 Dose: 250 mg Fluticasone/Salmeterol (Advair Diskus 500/50) 1 puff INH RQ12 [facility] Last Admin: 04/15/17 19:55 Dose: 1 puff Tiotropium Vaughan (Spiriva) 18 mcg INH RQ24 [facility] Last Admin: 04/15/17 08:35 Dose: 18 mcg - Labs Labs: 04/16/17 06:24 04/16/17 06:24 PT 13.3 SECONDS (9.7-12.2) H 04/04/17 18:46 INR 1.2 06/02/17 18:46 APTT 40 SECONDS (21-34) H 04/04/17 18:46 - Constitutional Appears: Non-toxic, No Acute Distress - Head Exam Head Exam: ATRAUMATIC, NORMAL INSPECTION, NORMOCEPHALIC - Eye Exam Eye Exam: EOMI, Normal appearance - ENT Exam ENT Exam: Mucous Membranes Moist - Neck Exam Neck Exam: Full ROM, Normal Inspection - Respiratory Exam Respiratory Exam: Wheezes Additional comments: wheezing improved - Cardiovascular Exam Cardiovascular Exam: +S1, +S2. absent: Tachycardia - GI/Abdominal Exam GI & Abdominal Exam: Soft, Tenderness, Normal Bowel Sounds Additional comments: tenderness to palpation of bilateral lower abdominal quadrants. No palpable mass appreciated/hernia. - Extremities Exam Extremities Exam: Normal Inspection. absent: Pedal Edema, Tenderness - Neurological Exam Neurological Exam: Alert, Awake, Oriented x3 - Psychiatric Exam Psychiatric exam: Normal Affect, Normal Mood - Skin Additional comments: Near clearance of scaly round plaques affecting bilateral lower extremities. Assessment and Plan - Assessment and Plan (Free Text) Assessment: COPD Exacerbation likely secondary to acute bronchitis Patient has previous history of TB. Per Dr. Stewart, AFB sputum culture ordered. F/U repeat sputum cx. Wheezing has significantly improved Leukocytosis 11.4, Neuts 83.6% Cough continued despite discontinuation of ZHANNA-I f/u repeat sputum culture Sputum positive for ESBL. Infectious disease, Dr. Stewart, consulted. Help appreciated. Placed on droplet precautions Spare Person, Dr. Joseph consulted, help appreciated. Per Dr. Joseph, patient likely has COPD exacerbation from acute bronchitis. ZHANNA-I discontinued and patient started on Losartan 25 mg po daily. Patient also started on Roflumilast 500 mcg po daily and Spiriva 18 mcg INH RQ24h. Continue on Primaxin 500 mg IVPB q6h Solumedrol decreased to 20 mg IVP q12h Continue Pulmicort 0.5 mg INH Q12h Continue Duonebs RQ4h scheduled Discontinue Albuterol 1.25 INH RQ3 prn wheezing Guaifenesin/Dextromethorphan 10 ml po q4h PRN for cough Discontinued Zithromax 250mg PO daily ROMIs negative x [address] w/o contrast: There are atelectatic/scarring changes both lung bases including on the lingular and middle lobe regions. Central lobular emphysematous changes with upper lobe predominance. There are also small bulla and/or of large bleb changes in the right lung apex and to a lesser degree left and at anterior upper lung field. Small calcific granuloma left lobe apex. Small nodule lateral aspect left upper lobe and another in the right lower lobe. Followup CT scan 3 months could be performed to assess stability. In situ IVC filter. (see full report) CXR- 04/04/17- Vague patchy opacity seen in the right lung base could represent atelectasis vs developing infiltrate. Minimal left basilar atelectasis. (Please see full report) Dysuria Continues to complain of dysuria and frequency UA: negative urine culture - negative Urinalysis: yeast Urine Culture negative (04/09/17) Continue Diflucan 200 mg po daily Diarrhea c. diff negative Patient noted blood per stool. 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 Will stop Betamethasone after this week and try pulse therapy. Nursing communication order for topical lotion to set at bedside for other affected areas. Prophylactic Measures Pepcid 20 mg po BID Held Heparin due to hx of retroperitoneal bleed <Charles Preciado H - Last Filed: 04/16/17 14:41> Objective - Vital Signs/Intake and Output Vital Signs (last 24 hours): Temp Pulse Resp BP Pulse Ox 97.9 F 70 20 138/70 98 04/16/17 08:00 04/16/17 08:00 04/16/17 08:00 04/16/17 08:00 04/16/17 08:00 Intake and Output: 04/16/17 04/16/17 06:59 18:59 Intake Total 400 480 Balance 400 480 - Medications Medications: Current Medications Albuterol/Ipratropium (Duoneb 3 Mg/0.5 Mg (3 Ml) Ud) 3 ml INH RQ4 [facility] Last Admin: 04/16/17 11:56 Dose: 3 ml Amlodipine Besylate (Norvasc) 5 mg PO DAILY [facility] Last Admin: 04/16/17 11:00 Dose: 5 mg Betamethasone Valerate (Betamethasone Valerate 0.1%) 0 ml TOP BID [facility] Last Admin: 04/16/17 11:01 Dose: 1 ml Ergocalciferol (Drisdol 50,000 Intl Units Cap) 1 cap PO Q7D [facility] Last Admin: 04/12/17 13:40 Dose: 1 cap Famotidine (Pepcid) 20 mg PO BID [facility] Last Admin: 04/16/17 10:59 Dose: 20 mg Fluconazole (Diflucan) 200 mg PO DAILY [facility] Last Admin: 04/16/17 11:33 Dose: 200 mg Glipizide (Glucotrol) 5 mg PO ACB [facility] Last Admin: 04/16/17 10:59 Dose: 5 mg Guaifenesin/Dextromethorphan (Robitussin Dm) 10 ml PO Q4H PRN PRN Reason: Cough and congestion Last Admin: 04/15/17 10:16 Dose: 10 ml Imipenem/Cilastatin Sodium 500 (mg/ Sodium Chloride) 100 mls @ 100 mls/hr IVPB Q6 [facility] Last Admin: 04/16/17 12:40 Dose: 100 mls/hr Insulin Glargine (Lantus) 20 unit SC BID [facility] Last Admin: 04/16/17 11:00 Dose: 20 units Insulin Human Regular (Novolin R) 0 unit SC ACHS [facility] PRN Reason: Protocol Last Admin: 04/16/17 12:08 Dose: Not Given Lactic Acid (Lac-Hydrin 12% Lotion (225 G)) 0 gm EXT BID [facility] Last Admin: 04/16/17 11:00 Dose: Not Given Loperamide HCl (Imodium) 2 mg PO QID PRN PRN Reason: Diarrhea Losartan Potassium (Cozaar) 25 mg PO DAILY [facility] Last Admin: 04/16/17 11:00 Dose: 25 mg Metformin HCl (Glucophage) 500 mg PO BID [facility] Last Admin: 04/16/17 10:59 Dose: 500 mg Methylprednisolone (Solu-Medrol) 20 mg IVP BID [facility] Ondansetron HCl (Zofran Inj) 4 mg IVP Q6H PRN PRN Reason: Nausea/Vomiting Roflumilast (Daliresp) 500 mcg PO DAILY [facility] Last Admin: 04/16/17 10:59 Dose: 500 mcg Saccharomyces Boulardii (Florastor) 250 mg PO BID [facility] Last Admin: 04/16/17 11:06 Dose: 250 mg Fluticasone/Salmeterol (Advair Diskus 500/50) 1 puff INH RQ12 [facility] Last Admin: 04/16/17 08:44 Dose: 1 puff Tiotropium Vaughan (Spiriva) 18 mcg INH RQ24 [facility] Last Admin: 04/16/17 08:44 Dose: 18 mcg - Labs Labs: 04/16/17 06:24 04/16/17 06:24 PT 13.3 SECONDS (9.7-12.2) H 04/04/17 18:46 INR 1.2 04/04/17 18:46 APTT 40 SECONDS (21-34) H 04/04/17 18:46 Attending/Attestation - Attestation I have personally seen and examined this patient.: Yes I have fully participated in the care of the patient.: Yes I have reviewed all pertinent clinical information, including history, physical exam and plan: Yes Notes (Text): 04/16/17 14:40 Medical attending: Patient was seen and examined by me, agrees the above note by medical doctor nuclear medicine. The patient Solu-Medrol is being decreased. Currently were pending AFB studies at this time. As mentioned before he grew out Escherichia coli ESBL positive sputum. Were currently waiting on the repeat sputum to be done. Blood cultures have been negative. Thank you very much, Charles Preciado
[2017-04-16] MEDS: (Novolin R) Insulin Human Regular 100 units/ml vial SC SCH ×4 (08:04→21:45)
[2017-04-16] MEDS: Fluticasone-Salmeterol 500-50mcg Diskus INH SCH ×2 (08:44→19:10)
[2017-04-16] MEDS: Tiotropium 18 mcg Cap For Inhalation INH SCH (08:44)
[2017-04-16 08:50] LABS: NEUTROPHIL 84 % (50-75); TOTAL CELLS COUNTED 100
[2017-04-16] MEDS: Ammonium Lactate 12% Lotion (225 g) EXT SCH ×3 (11:00→18:51)
[2017-04-16] MEDS: (Lantus) Insulin Glargine, Recombinant SC SCH (11:00)
[2017-04-16] MEDS: Betamethasone Valerate 0.1% Lotion (60 ml) TOP SCH ×2 (11:01→18:50)
[2017-04-16] MEDS: Saccharomyces Boulardi 250 mg Cap PO SCH ×2 (11:06→18:05)
[2017-04-17] MEDS: Albuterol-Ipratrop 3 mg / 0.5 (3 ml) UD INH SCH ×5 (03:13→19:49)
--- NOTE | 2017-04-17 07:31 | CP.PCM.PN ---
Subjective - Date & Time of Evaluation Date of Evaluation: 04/17/17 Time of Evaluation: 07:30 - Subjective Subjective: Patient seen and examined at bedside. Patient states his breathing varies from improved to worse. He reports 4 episodes of emesis and was noted to be hypoglycemic yesterday afternoon. Per patient, he became acutely dizzy and his vision blurry after walking out of the restroom. He denies vomiting today but admits to nausea. He continues to have abdominal pain exacerbated upon urination. Patient denies fever, chills, chest pain, shortness of breath, diarrhea, constipation, and lower extremity swelling. Objective - Vital Signs/Intake and Output Vital Signs (last 24 hours): Temp Pulse Resp BP Pulse Ox 97.7 F 79 18 129/65 97 04/17/17 00:00 04/17/17 00:00 04/17/17 00:00 04/17/17 00:00 04/17/17 00:00 Intake and Output: 04/17/17 04/17/17 06:59 18:59 Intake Total 1000 Balance 1000 - Medications Medications: Current Medications Albuterol/Ipratropium (Duoneb 3 Mg/0.5 Mg (3 Ml) Ud) 3 ml INH RQ4 [facility] Last Admin: 04/17/17 07:21 Dose: 3 ml Amlodipine Besylate (Norvasc) 5 mg PO DAILY [facility] Last Admin: 04/16/17 11:00 Dose: 5 mg Betamethasone Valerate (Betamethasone Valerate 0.1%) 0 ml TOP BID [facility] Last Admin: 04/16/17 18:50 Dose: 1 ml Ergocalciferol (Drisdol 50,000 Intl Units Cap) 1 cap PO Q7D [facility] Last Admin: 04/12/17 13:40 Dose: 1 cap Famotidine (Pepcid) 20 mg PO BID [facility] Last Admin: 04/16/17 18:50 Dose: 20 mg Fluconazole (Diflucan) 200 mg PO DAILY [facility] Last Admin: 04/16/17 11:33 Dose: 200 mg Glipizide (Glucotrol) 5 mg PO ACB [facility] Last Admin: 04/16/17 10:59 Dose: 5 mg Guaifenesin/Dextromethorphan (Robitussin Dm) 10 ml PO Q4H PRN PRN Reason: Cough and congestion Last Admin: 04/15/17 10:16 Dose: 10 ml Imipenem/Cilastatin Sodium 500 (mg/ Sodium Chloride) 100 mls @ 100 mls/hr IVPB Q6 [facility] Last Admin: 04/17/17 05:35 Dose: 100 mls/hr Insulin Glargine (Lantus) 20 unit SC BID [facility] Last Admin: 04/16/17 11:00 Dose: 20 units Insulin Human Regular (Novolin R) 0 unit SC ACHS [facility] PRN Reason: Protocol Last Admin: 04/16/17 21:45 Dose: Not Given Lactic Acid (Lac-Hydrin 12% Lotion (225 G)) 0 gm EXT BID [facility] Last Admin: 04/16/17 18:51 Dose: 1 applic Loperamide HCl (Imodium) 2 mg PO QID PRN PRN Reason: Diarrhea Losartan Potassium (Cozaar) 25 mg PO DAILY [facility] Last Admin: 04/16/17 11:00 Dose: 25 mg Metformin HCl (Glucophage) 500 mg PO BID [facility] Last Admin: 04/16/17 10:59 Dose: 500 mg Methylprednisolone (Solu-Medrol) 20 mg IVP BID [facility] Last Admin: 04/16/17 18:05 Dose: 20 mg Ondansetron HCl (Zofran Inj) 4 mg IVP Q6H PRN PRN Reason: Nausea/Vomiting Roflumilast (Daliresp) 500 mcg PO DAILY [facility] Last Admin: 04/16/17 10:59 Dose: 500 mcg Saccharomyces Boulardii (Florastor) 250 mg PO BID [facility] Last Admin: 04/16/17 18:05 Dose: 250 mg Fluticasone/Salmeterol (Advair Diskus 500/50) 1 puff INH RQ12 [facility] Last Admin: 04/16/17 19:10 Dose: 1 puff Tiotropium [place] (Spiriva) 18 mcg INH RQ24 [facility] Last Admin: 04/16/17 08:44 Dose: 18 mcg - Labs Labs: 04/16/17 06:24 04/16/17 06:24 PT 13.3 SECONDS (9.7-12.2) H 04/04/17 18:46 INR 1.2 04/04/17 18:46 APTT 40 SECONDS (21-34) H 04/04/17 18:46 - Constitutional Appears: Non-toxic, No Acute Distress - Head Exam Head Exam: ATRAUMATIC, NORMAL INSPECTION, NORMOCEPHALIC - Eye Exam Eye Exam: EOMI, Normal appearance, PERRL - ENT Exam ENT Exam: Mucous Membranes Moist - Respiratory Exam Respiratory Exam: Rhonchi, Wheezes. absent: Clear to Ausculation Bilateral, NORMAL BREATHING PATTERN - Cardiovascular Exam Cardiovascular Exam: +S1, +S2. absent: Bradycardia, Tachycardia - GI/Abdominal Exam GI & Abdominal Exam: Soft, Tenderness, Normal Bowel Sounds - Extremities Exam Extremities Exam: Normal Inspection. absent: Pedal Edema, Tenderness - Neurological Exam Neurological Exam: Alert, Awake, Oriented x3 - Psychiatric Exam Psychiatric exam: Normal Affect, Normal Mood - Skin Additional comments: few scaly erythematous plaques present Assessment and Plan - Assessment and Plan (Free Text) Assessment: COPD Exacerbation likely secondary to acute bronchitis Patient has previous history of TB. Per Dr. Stewart, AFB sputum culture ordered. Induced sputum ordered. Wheezing has significantly improved Leukocytosis 13.8 Cough continued despite discontinuation of ZHANNA-I f/u repeat sputum culture Sputum positive for ESBL. Infectious disease, Dr. Stewart, consulted. Help appreciated. Placed on droplet precautions [employer] Administrator, Dr. Joseph consulted, help appreciated. Per Dr. Joseph, patient likely has COPD exacerbation from acute bronchitis. ZHANNA-I discontinued and patient started on Losartan 25 mg po daily. Patient also started on Roflumilast 500 mcg po daily and Spiriva 18 mcg INH RQ24h. Continue on Primaxin 500 mg IVPB q6h Continue Solumedrol 20 mg IVP q12h Continue Pulmicort 0.5 mg INH Q12h Continue Duonebs RQ4h scheduled Discontinue Albuterol 1.25 INH RQ3 prn wheezing Guaifenesin/Dextromethorphan 10 ml po q4h PRN for cough Discontinued Zithromax 250mg PO daily ROMIs negative x [address] w/o contrast: There are atelectatic/scarring changes both lung bases including on the lingular and middle lobe regions. Central lobular emphysematous changes with upper lobe predominance. There are also small bulla and/or of large bleb changes in the right lung apex and to a lesser degree left and at anterior upper lung field. Small calcific granuloma left lobe apex. Small nodule lateral aspect left upper lobe and another in the right lower lobe. Followup CT scan 3 months could be performed to assess stability. In situ IVC filter. (see full report) CXR- 04/04/17- Vague patchy opacity seen in the right lung base could represent atelectasis vs developing infiltrate. Minimal left basilar atelectasis. (Please see full report) Dysuria Continues to complain of dysuria and frequency UA: negative urine culture - negative Urinalysis: yeast Urine Culture negative (04/09/17) Continue Diflucan 200 mg po daily Diarrhea c. diff negative Patient noted blood per stool. 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 Will stop Betamethasone after this week and try pulse therapy. Nursing communication order for topical lotion to set at bedside for other affected areas. Prophylactic Measures Pepcid 20 mg po BID Held Heparin due to hx of retroperitoneal bleed
[2017-04-17] MEDS: (Novolin R) Insulin Human Regular 100 units/ml vial SC SCH ×4 (08:27→21:40)
[2017-04-17 08:59] LABS: BASO % 0.3 % (0.0-2.0); HEMATOCRIT 39.9 % (35.0-51.0); LYMPH # 1.4 K/uL (1.0-4.3); MEAN CELL VOLUME 87.9 fL (80.0-94.0); MEAN CORPUSCULAR HEMOGLOBIN 28.1 pg (27.0-31.0); MEAN PLATELET VOLUME 8.8 fL (7.2-11.7); MONO # 1.5 K/uL (0.0-0.8); MONO % 10.8 % (0.0-10.0); NRBC % 0.2 % (0.0-2.0); RED CELL DISTRIBUTION WIDTH 16.2 % (11.5-14.5); WHITE BLOOD COUNT 13.8 K/uL (4.8-10.8)
[2017-04-17 09:28] LABS: CHLORIDE 99 mmol/L (98-107); SODIUM 133 mmol/L (132-148)
[2017-04-17 09:30] LABS: GFR AFRICAN-AMERICAN > 60
[2017-04-17 09:31] LABS: ALKALINE PHOSPHATASE 41 U/L (38-126); AST/SGOT 18 U/L (17-59); BILIRUBIN,TOTAL 0.5 mg/dL (0.2-1.3); BLOOD UREA NITROGEN 32 mg/dL (9-20); CALCIUM 8.3 mg/dl (8.6-10.4); CARBON DIOXIDE 27 mmol/L (22-30); GLUCOSE,RANDOM 106 mg/dL (75-110); MAGNESIUM 1.8 mg/dL (1.6-2.3); TOTAL PROTEIN 5.4 g/dL (6.3-8.3)
[2017-04-17 09:32] LABS: ALT/SGPT 21 U/L (21-72)
[2017-04-17] MEDS: Fluticasone-Salmeterol 500-50mcg Diskus INH SCH ×2 (10:10→19:49)
[2017-04-17] MEDS: Tiotropium 18 mcg Cap For Inhalation INH SCH (10:10)
[2017-04-17] MEDS: MethylPREDNISolone 40 mg Vial IVP SCH ×2 (10:59→18:09)
[2017-04-17] MEDS: Saccharomyces Boulardi 250 mg Cap PO SCH ×2 (10:59→18:04)
[2017-04-17] MEDS: Betamethasone Valerate 0.1% Lotion (60 ml) TOP SCH ×2 (11:00→18:07)
[2017-04-17] MEDS: Ammonium Lactate 12% Lotion (225 g) EXT SCH ×2 (11:00→18:07)
[2017-04-17] MEDS: (Lantus) Insulin Glargine, Recombinant SC SCH (11:02)
[2017-04-18] MEDS: Albuterol-Ipratrop 3 mg / 0.5 (3 ml) UD INH SCH ×6 (01:03→20:28)
--- NOTE | 2017-04-18 07:04 | CP.PCM.PN ---
<DoreneBetsy - Last Filed: 04/18/17 13:00> Subjective - Date & Time of Evaluation Date of Evaluation: 04/18/17 Time of Evaluation: 07:04 - Subjective Subjective: Patient seen and examined at beside. Patient states his condition is the same and coughing is intermittent. He was able to produce a sputum sample today. Patient denies fever and chills. He reports abdominal pain exacerbated with urinating. Patient states his skin is much improved. He denies chest pain, palpitations, nausea, vomiting, and diarrhea. Objective - Vital Signs/Intake and Output Vital Signs (last 24 hours): Temp Pulse Resp BP Pulse Ox 97.9 F 88 20 142/76 98 04/17/17 23:42 04/17/17 23:42 04/17/17 23:42 04/17/17 23:42 04/17/17 23:42 - Medications Medications: Current Medications Albuterol/Ipratropium (Duoneb 3 Mg/0.5 Mg (3 Ml) Ud) 3 ml INH RQ4 [facility] Last Admin: 04/18/17 03:53 Dose: Not Given Amlodipine Besylate (Norvasc) 5 mg PO DAILY [facility] Last Admin: 04/17/17 10:59 Dose: 5 mg Betamethasone Valerate (Betamethasone Valerate 0.1%) 0 ml TOP BID [facility] Last Admin: 04/17/17 18:07 Dose: 60 ml Ergocalciferol (Drisdol 50,000 Intl Units Cap) 1 cap PO Q7D [facility] Last Admin: 04/12/17 13:40 Dose: 1 cap Famotidine (Pepcid) 20 mg PO BID [facility] Last Admin: 04/17/17 18:04 Dose: 20 mg Glipizide (Glucotrol) 5 mg PO ACB [facility] Last Admin: 04/16/17 10:59 Dose: 5 mg Guaifenesin/Dextromethorphan (Robitussin Dm) 10 ml PO Q4H PRN PRN Reason: Cough and congestion Last Admin: 04/15/17 10:16 Dose: 10 ml Imipenem/Cilastatin Sodium 500 (mg/ Sodium Chloride) 100 mls @ 100 mls/hr IVPB Q6 [facility] Last Admin: 04/18/17 05:24 Dose: 100 mls/hr Insulin Glargine (Lantus) 20 unit SC BID [facility] Last Admin: 04/17/17 11:02 Dose: Not Given Insulin Human Regular (Novolin R) 0 unit SC ACHS [facility] PRN Reason: Protocol Last Admin: 04/17/17 21:40 Dose: Not Given Lactic Acid (Lac-Hydrin 12% Lotion (225 G)) 0 gm EXT BID [facility] Last Admin: 04/17/17 18:07 Dose: 1 applic Loperamide HCl (Imodium) 2 mg PO QID PRN PRN Reason: Diarrhea Losartan Potassium (Cozaar) 25 mg PO DAILY [facility] Last Admin: 04/17/17 10:59 Dose: 25 mg Metformin HCl (Glucophage) 500 mg PO BID [facility] Last Admin: 04/17/17 10:59 Dose: 500 mg Methylprednisolone (Solu-Medrol) 20 mg IVP BID [facility] Last Admin: 04/17/17 18:09 Dose: 20 mg Ondansetron HCl (Zofran Inj) 4 mg IVP Q6H PRN PRN Reason: Nausea/Vomiting Roflumilast (Daliresp) 500 mcg PO DAILY [facility] Last Admin: 04/17/17 11:09 Dose: 500 mcg Saccharomyces Boulardii (Florastor) 250 mg PO BID [facility] Last Admin: 04/17/17 18:04 Dose: 250 mg Fluticasone/Salmeterol (Advair Diskus 500/50) 1 puff INH RQ12 [facility] Last Admin: 04/17/17 19:49 Dose: 1 puff Tiotropium [place] (Spiriva) 18 mcg INH RQ24 [facility] Last Admin: 04/17/17 10:10 Dose: 18 mcg - Labs Labs: 04/17/17 08:47 04/17/17 08:47 PT 13.3 SECONDS (9.7-12.2) H 04/04/17 18:46 INR 1.2 04/04/17 18:46 APTT 40 SECONDS (21-34) H 04/04/17 18:46 - Constitutional Appears: Non-toxic, No Acute Distress - Head Exam Head Exam: ATRAUMATIC, NORMAL INSPECTION, NORMOCEPHALIC - Eye Exam Eye Exam: EOMI, Normal appearance, PERRL - ENT Exam ENT Exam: Mucous Membranes Moist - Neck Exam Neck Exam: Full ROM, Normal Inspection - Respiratory Exam Respiratory Exam: Rhonchi, Wheezes - Cardiovascular Exam Cardiovascular Exam: +S1, +S2. absent: Bradycardia, Tachycardia - GI/Abdominal Exam GI & Abdominal Exam: Soft, Normal Bowel Sounds. absent: Firm, Tenderness - Extremities Exam Extremities Exam: Normal Inspection. absent: Pedal Edema, Tenderness - Neurological Exam Neurological Exam: Alert, Awake, Oriented x3 - Psychiatric Exam Psychiatric exam: Normal Affect, Normal Mood - Skin Additional comments: resolving scaly plaques to bilateral lower extremities Assessment and Plan - Assessment and Plan (Free Text) Assessment: COPD Exacerbation likely secondary to acute bronchitis Patient has previous history of TB. Per Dr. Stewart, AFB sputum culture ordered. Induced sputum ordered. Wheezing has significantly improved Leukocytosis 13.8 Cough continued despite discontinuation of ZHANNA-I f/u repeat sputum culture Sputum positive for ESBL. Infectious disease, Dr. Stewart, consulted. Help appreciated. Placed on droplet precautions [employer]user, Dr. Joseph consulted, help appreciated. Per Dr. Joseph, patient likely has COPD exacerbation from acute bronchitis. ZHANNA-I discontinued and patient started on Losartan 25 mg po daily. Patient also started on Roflumilast 500 mcg po daily and Spiriva 18 mcg INH RQ24h. Continue on Primaxin 500 mg IVPB q6h Decrease Solumedrol to 20 mg IVP daily Continue Pulmicort 0.5 mg INH Q12h Continue Duonebs RQ4h scheduled Discontinue Albuterol 1.25 INH RQ3 prn wheezing Guaifenesin/Dextromethorphan 10 ml po q4h PRN for cough Discontinued Zithromax 250mg PO daily ROMIs negative x [address] w/o contrast: There are atelectatic/scarring changes both lung bases including on the lingular and middle lobe regions. Central lobular emphysematous changes with upper lobe predominance. There are also small bulla and/or of large bleb changes in the right lung apex and to a lesser degree left and at anterior upper lung field. Small calcific granuloma left lobe apex. Small nodule lateral aspect left upper lobe and another in the right lower lobe. Followup CT scan 3 months could be performed to assess stability. In situ IVC filter. (see full report) CXR- 04/04/17- Vague patchy opacity seen in the right lung base could represent atelectasis vs developing infiltrate. Minimal left basilar atelectasis. (Please see full report) Dysuria Continues to complain of dysuria and frequency UA: negative urine culture - negative Urinalysis: yeast Urine Culture negative (04/09/17) Discontinue Diflucan 200 mg po daily Diarrhea Resolved c. diff negative Patient noted blood per stool. 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 Will stop Betamethasone after this week and try pulse therapy. Nursing communication order for topical lotion to set at bedside for other affected areas. Prophylactic Measures Pepcid 20 mg po BID Held Heparin due to hx of retroperitoneal bleed <Charles Preciado H - Last Filed: 04/18/17 15:58> Objective - Vital Signs/Intake and Output Vital Signs (last 24 hours): Temp Pulse Resp BP Pulse Ox 97.9 F 85 19 128/62 97 04/18/17 08:00 04/18/17 08:00 04/18/17 08:00 04/18/17 08:00 04/18/17 08:00 Intake and Output: 04/18/17 04/18/17 06:59 18:59 Intake Total 580 Balance 580 - Medications Medications: Current Medications Albuterol/Ipratropium (Duoneb 3 Mg/0.5 Mg (3 Ml) Ud) 3 ml INH RQ4 [facility] Last Admin: 04/18/17 12:52 Dose: 3 ml Amlodipine Besylate (Norvasc) 5 mg PO DAILY [facility] Last Admin: 04/18/17 10:22 Dose: 5 mg Betamethasone Valerate (Betamethasone Valerate 0.1%) 0 ml TOP BID [facility] Last Admin: 04/18/17 13:46 Dose: Not Given Ergocalciferol (Drisdol 50,000 Intl Units Cap) 1 cap PO Q7D [facility] Last Admin: 04/12/17 13:40 Dose: 1 cap Famotidine (Pepcid) 20 mg PO BID [facility] Last Admin: 04/18/17 10:22 Dose: 20 mg Glipizide (Glucotrol) 5 mg PO ACB [facility] Last Admin: 04/18/17 10:22 Dose: 5 mg Guaifenesin/Dextromethorphan (Robitussin Dm) 10 ml PO Q4H PRN PRN Reason: Cough and congestion Last Admin: 04/15/17 10:16 Dose: 10 ml Imipenem/Cilastatin Sodium 500 (mg/ Sodium Chloride) 100 mls @ 100 mls/hr IVPB Q6 [facility] Last Admin: 04/18/17 12:58 Dose: 100 mls/hr Insulin Glargine (Lantus) 20 unit SC BID [facility] Last Admin: 04/18/17 10:55 Dose: 20 units Insulin Human Regular (Novolin R) 0 unit SC ACHS [facility] PRN Reason: Protocol Last Admin: 04/18/17 12:30 Dose: Not Given Lactic Acid (Lac-Hydrin 12% Lotion (225 G)) 0 gm EXT BID [facility] Last Admin: 04/18/17 10:23 Dose: 1 applic Loperamide HCl (Imodium) 2 mg PO QID PRN PRN Reason: Diarrhea Losartan Potassium (Cozaar) 25 mg PO DAILY [facility] Last Admin: 04/18/17 10:22 Dose: 25 mg Metformin HCl (Glucophage) 500 mg PO BID [facility] Last Admin: 04/18/17 10:55 Dose: 500 mg Methylprednisolone (Solu-Medrol) 20 mg IVP DAILY [facility] Ondansetron HCl (Zofran Inj) 4 mg IVP Q6H PRN PRN Reason: Nausea/Vomiting Roflumilast (Daliresp) 500 mcg PO DAILY [facility] Last Admin: 04/18/17 10:22 Dose: 500 mcg Saccharomyces Boulardii (Florastor) 250 mg PO BID [facility] Last Admin: 04/18/17 10:22 Dose: 250 mg Fluticasone/Salmeterol (Advair Diskus 500/50) 1 puff INH RQ12 [facility] Last Admin: 04/18/17 07:57 Dose: 1 puff Tiotropium [place] (Spiriva) 18 mcg INH RQ24 [facility] Last Admin: 04/18/17 07:57 Dose: 18 mcg - Labs Labs: 04/18/17 08:36 04/18/17 08:36 PT 13.3 SECONDS (9.7-12.2) H 04/04/17 18:46 INR 1.2 04/04/17 18:46 APTT 40 SECONDS (21-34) H 04/04/17 18:46 Attending/Attestation - Attestation I have personally seen and examined this patient.: Yes I have fully participated in the care of the patient.: Yes I have reviewed all pertinent clinical information, including history, physical exam and plan: Yes Notes (Text): 04/18/17 15:57 Medical attending: Patient was seen and examined by me, agrees the above note by medical record assistant. Today were to further decrease the Solu-Medrol. Also the patient, the patient was able to spit up into a cup for AFB study. In the meantime he remains on isolation. As mentioned before he grew out gram-negative ESBL Escherichia coli in his sputum Currently he is on Primaxin IV Thank you very much, Charles Preciado
[2017-04-18] MEDS: Tiotropium 18 mcg Cap For Inhalation INH SCH (07:57)
[2017-04-18] MEDS: Fluticasone-Salmeterol 500-50mcg Diskus INH SCH ×2 (07:57→20:28)
[2017-04-18] MEDS: (Novolin R) Insulin Human Regular 100 units/ml vial SC SCH ×4 (08:31→21:55)
[2017-04-18 08:47] LABS: BASO % 0.3 % (0.0-2.0); EOS % 0.1 % (0.0-4.0); HEMATOCRIT 40.2 % (35.0-51.0); LYMPH # 1.6 K/uL (1.0-4.3); LYMPH % 12.9 % (20.0-40.0); MEAN CELL VOLUME 87.4 fL (80.0-94.0); MEAN CORPUSCULAR HEMOGLOBIN 28.1 pg (27.0-31.0); MEAN CORPUSCULAR HGB CONC 32.1 g/dL (33.0-37.0); MEAN PLATELET VOLUME 8.5 fL (7.2-11.7); MONO # 1.5 K/uL (0.0-0.8); MONO % 12.1 % (0.0-10.0); NRBC % 0.1 % (0.0-2.0); RED CELL DISTRIBUTION WIDTH 16.7 % (11.5-14.5); WHITE BLOOD COUNT 12.5 K/uL (4.8-10.8)
[2017-04-18 09:53] LABS: CHLORIDE 100 mmol/L (98-107); POTASSIUM 3.9 mmol/L (3.6-5.2); SODIUM 135 mmol/L (132-148)
[2017-04-18 09:55] LABS: ALB/GLOB RATIO 1.1 (1.0-2.1); ALKALINE PHOSPHATASE 44 U/L (38-126); AST/SGOT 20 U/L (17-59); BILIRUBIN,TOTAL 0.6 mg/dL (0.2-1.3); CARBON DIOXIDE 29 mmol/L (22-30); GFR AFRICAN-AMERICAN > 60; TOTAL PROTEIN 5.8 g/dL (6.3-8.3)
[2017-04-18 09:56] LABS: ALT/SGPT 16 U/L (21-72); BLOOD UREA NITROGEN 31 mg/dL (9-20); CALCIUM 8.7 mg/dl (8.6-10.4); GLUCOSE,RANDOM 149 mg/dL (75-110); MAGNESIUM 1.8 mg/dL (1.6-2.3)
[2017-04-18] MEDS: Saccharomyces Boulardi 250 mg Cap PO SCH ×2 (10:22→17:17)
[2017-04-18] MEDS: MethylPREDNISolone 40 mg Vial IVP SCH (10:22)
[2017-04-18] MEDS: Ammonium Lactate 12% Lotion (225 g) EXT SCH ×2 (10:23→17:17)
[2017-04-18] MEDS: Betamethasone Valerate 0.1% Lotion (60 ml) TOP SCH ×3 (10:23→17:16)
[2017-04-18] MEDS: (Lantus) Insulin Glargine, Recombinant SC SCH ×2 (10:55→18:26)
--- NOTE | 2017-04-19 00:05 | CP.PCM.PN ---
<Lu Schmidt - Last Filed: 04/19/17 03:12> Subjective - Date & Time of Evaluation Date of Evaluation: 04/19/17 Time of Evaluation: 12:48 - Subjective Subjective: PGY 1 Medicine Note- Dr. Preciado's service Patient seen and examined at beside. No acute complaints or events per nursing. Patient has cough with some intermittent shortness of breath through the day. Patient denies subjective fevers or chills, headaches, chest pain, palpitations , nausea, vomiting, constipation and diarrhea. Objective - Vital Signs/Intake and Output Vital Signs (last 24 hours): Temp Pulse Resp BP Pulse Ox 97.4 F L 79 20 129/64 96 04/18/17 15:00 04/18/17 15:00 04/18/17 15:00 04/18/17 15:00 04/18/17 15:00 Intake and Output: 04/18/17 04/19/17 18:59 06:59 Intake Total 580 700 Balance 580 700 - Medications Medications: Current Medications Albuterol/Ipratropium (Duoneb 3 Mg/0.5 Mg (3 Ml) Ud) 3 ml INH RQ4 [facility] Last Admin: 04/18/17 20:28 Dose: 3 ml Amlodipine Besylate (Norvasc) 5 mg PO DAILY [facility] Last Admin: 04/18/17 10:22 Dose: 5 mg Betamethasone Valerate (Betamethasone Valerate 0.1%) 0 ml TOP BID [facility] Last Admin: 04/18/17 17:16 Dose: 60 ml Ergocalciferol (Drisdol 50,000 Intl Units Cap) 1 cap PO Q7D [facility] Last Admin: 04/12/17 13:40 Dose: 1 cap Famotidine (Pepcid) 20 mg PO BID [facility] Last Admin: 04/18/17 17:17 Dose: 20 mg Glipizide (Glucotrol) 5 mg PO ACB [facility] Last Admin: 04/18/17 10:22 Dose: 5 mg Guaifenesin/Dextromethorphan (Robitussin Dm) 10 ml PO Q4H PRN PRN Reason: Cough and congestion Last Admin: 04/15/17 10:16 Dose: 10 ml Imipenem/Cilastatin Sodium 500 (mg/ Sodium Chloride) 100 mls @ 100 mls/hr IVPB Q6 [facility] Last Admin: 04/18/17 18:26 Dose: 100 mls/hr Insulin Glargine (Lantus) 20 unit SC BID [facility] Last Admin: 04/18/17 18:26 Dose: 20 units Insulin Human Regular (Novolin R) 0 unit SC ACHS [facility] PRN Reason: Protocol Last Admin: 04/18/17 21:55 Dose: Not Given Lactic Acid (Lac-Hydrin 12% Lotion (225 G)) 0 gm EXT BID [facility] Last Admin: 04/18/17 17:17 Dose: 1 applic Loperamide HCl (Imodium) 2 mg PO QID PRN PRN Reason: Diarrhea Losartan Potassium (Cozaar) 25 mg PO DAILY [facility] Last Admin: 04/18/17 10:22 Dose: 25 mg Metformin HCl (Glucophage) 500 mg PO BID [facility] Last Admin: 04/18/17 17:17 Dose: 500 mg Methylprednisolone (Solu-Medrol) 20 mg IVP DAILY [facility] Ondansetron HCl (Zofran Inj) 4 mg IVP Q6H PRN PRN Reason: Nausea/Vomiting Roflumilast (Daliresp) 500 mcg PO DAILY [facility] Last Admin: 04/18/17 10:22 Dose: 500 mcg Saccharomyces Boulardii (Florastor) 250 mg PO BID [facility] Last Admin: 04/18/17 17:17 Dose: 250 mg Fluticasone/Salmeterol (Advair Diskus 500/50) 1 puff INH RQ12 [facility] Last Admin: 04/18/17 20:28 Dose: 1 puff Tiotropium Branch (Spiriva) 18 mcg INH RQ24 [facility] Last Admin: 04/18/17 07:57 Dose: 18 mcg - Labs Labs: 04/18/17 08:36 04/18/17 08:36 PT 13.3 SECONDS (9.7-12.2) H 04/04/17 18:46 INR 1.2 04/04/17 18:46 APTT 40 SECONDS (21-34) H 04/04/17 18:46 - Constitutional Appears: Non-toxic, No Acute Distress - Head Exam Head Exam: ATRAUMATIC, NORMAL INSPECTION, NORMOCEPHALIC - Eye Exam Eye Exam: EOMI, Normal appearance, PERRL Pupil Exam: NORMAL ACCOMODATION - ENT Exam ENT Exam: Mucous Membranes Moist - Neck Exam Neck Exam: Full ROM - Respiratory Exam Respiratory Exam: Wheezes. absent: Clear to Ausculation Bilateral - Cardiovascular Exam Cardiovascular Exam: +S1, +S2 - GI/Abdominal Exam GI & Abdominal Exam: Soft, Normal Bowel Sounds - Back Exam Back Exam: Full ROM - Neurological Exam Neurological Exam: Alert, Awake - Psychiatric Exam Psychiatric exam: Normal Affect, Normal Mood - Skin Skin Exam: Dry, Normal Color, Warm Assessment and Plan - Assessment and Plan (Free Text) Assessment: COPD Exacerbation likely secondary to acute bronchitis Patient has previous history of TB. Per Dr. Stewart, AFB sputum culture ordered. Induced sputum ordered. Wheezing has improved Leukocytosis improving Cough continued despite discontinuation of ZHANNA-I f/u repeat sputum culture Sputum positive for ESBL. Infectious disease, Dr. Stewart, consulted. Help appreciated. Placed on droplet precautions Site Technician, Dr. Joseph consulted, help appreciated. Per Dr. Joseph, patient likely has COPD exacerbation from acute bronchitis. ZHANNA-I discontinued and patient started on Losartan 25 mg po daily. Patient also started on Roflumilast 500 mcg po daily and Spiriva 18 mcg INH RQ24h. Continue on Primaxin 500 mg IVPB q6h Decrease Solumedrol to 20 mg IVP daily Continue Pulmicort 0.5 mg INH Q12h Continue Duonebs RQ4h scheduled Discontinue Albuterol 1.25 INH RQ3 prn wheezing Guaifenesin/Dextromethorphan 10 ml po q4h PRN for cough Florastor BID probiotic agent ROMIs negative x [address] w/o contrast: There are atelectatic/scarring changes both lung bases including on the lingular and middle lobe regions. Central lobular emphysematous changes with upper lobe predominance. There are also small bulla and/or of large bleb changes in the right lung apex and to a lesser degree left and at anterior upper lung field. Small calcific granuloma left lobe apex. Small nodule lateral aspect left upper lobe and another in the right lower lobe. Followup CT scan 3 months could be performed to assess stability. In situ IVC filter. (see full report) CXR- 04/04/17- Vague patchy opacity seen in the right lung base could represent atelectasis vs developing infiltrate. Minimal left basilar atelectasis. (Please see full report) Dysuria Continues to complain of dysuria and frequency UA: negative urine culture - negative Urinalysis: yeast Urine Culture negative (04/09/17) Discontinue Diflucan 200 mg po daily Diarrhea Resolved c. diff negative Patient noted blood per stool. 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 Will stop Betamethasone after this week and try pulse therapy. Nursing communication order for topical lotion to set at bedside for other affected areas. Prophylactic Measures Pepcid 20 mg po BID Held Heparin due to hx of retroperitoneal bleed <Charles Preciado H - Last Filed: 04/19/17 11:33> Objective - Vital Signs/Intake and Output Vital Signs (last 24 hours): Temp Pulse Resp BP Pulse Ox 97.6 F 86 20 127/78 95 04/19/17 08:00 04/19/17 08:00 04/19/17 08:00 04/19/17 08:00 04/19/17 08:00 Intake and Output: 04/19/17 04/19/17 06:59 18:59 Intake Total 1500 Balance 1500 - Medications Medications: Current Medications Albuterol/Ipratropium (Duoneb 3 Mg/0.5 Mg (3 Ml) Ud) 3 ml INH RQ4 [facility] Last Admin: 04/19/17 08:25 Dose: 3 ml Amlodipine Besylate (Norvasc) 5 mg PO DAILY [facility] Last Admin: 04/19/17 10:09 Dose: 5 mg Betamethasone Valerate (Betamethasone Valerate 0.1%) 0 ml TOP BID [facility] Last Admin: 04/19/17 10:07 Dose: 1 ml Ergocalciferol (Drisdol 50,000 Intl Units Cap) 1 cap PO Q7D [facility] Last Admin: 04/12/17 13:40 Dose: 1 cap Famotidine (Pepcid) 20 mg PO BID [facility] Last Admin: 04/19/17 10:05 Dose: 20 mg Glipizide (Glucotrol) 5 mg PO ACB [facility] Last Admin: 04/19/17 08:57 Dose: Not Given Guaifenesin/Dextromethorphan (Robitussin Dm) 10 ml PO Q4H PRN PRN Reason: Cough and congestion Last Admin: 04/15/17 10:16 Dose: 10 ml Imipenem/Cilastatin Sodium 500 (mg/ Sodium Chloride) 100 mls @ 100 mls/hr IVPB Q6 [facility] Last Admin: 04/19/17 05:28 Dose: 100 mls/hr Insulin Glargine (Lantus) 20 unit SC BID [facility] Last Admin: 04/19/17 10:10 Dose: Not Given Insulin Human Regular (Novolin R) 0 unit SC ACHS [facility] PRN Reason: Protocol Last Admin: 04/19/17 08:57 Dose: Not Given Lactic Acid (Lac-Hydrin 12% Lotion (225 G)) 0 gm EXT BID [facility] Last Admin: 04/19/17 10:06 Dose: 1 applic Loperamide HCl (Imodium) 2 mg PO QID PRN PRN Reason: Diarrhea Losartan Potassium (Cozaar) 25 mg PO DAILY [facility] Last Admin: 04/19/17 10:09 Dose: 25 mg Metformin HCl (Glucophage) 500 mg PO BID [facility] Last Admin: 04/19/17 10:09 Dose: Not Given Methylprednisolone (Solu-Medrol) 20 mg IVP DAILY [facility] Last Admin: 04/19/17 10:06 Dose: 20 mg Ondansetron HCl (Zofran Inj) 4 mg IVP Q6H PRN PRN Reason: Nausea/Vomiting Roflumilast (Daliresp) 500 mcg PO DAILY [facility] Last Admin: 04/19/17 10:06 Dose: 500 mcg Saccharomyces Boulardii (Florastor) 250 mg PO BID [facility] Last Admin: 04/18/17 17:17 Dose: 250 mg Fluticasone/Salmeterol (Advair Diskus 500/50) 1 puff INH RQ12 [facility] Last Admin: 04/19/17 08:45 Dose: 1 puff Tiotropium Branch (Spiriva) 18 mcg INH RQ24 [facility] Last Admin: 04/18/17 07:57 Dose: 18 mcg - Labs Labs: 04/19/17 08:47 04/19/17 08:23 PT 13.3 SECONDS (9.7-12.2) H 04/04/17 18:46 INR 1.2 04/04/17 18:46 APTT 40 SECONDS (21-34) H 04/04/17 18:46 Attending/Attestation - Attestation I have personally seen and examined this patient.: Yes I have fully participated in the care of the patient.: Yes I have reviewed all pertinent clinical information, including history, physical exam and plan: Yes Notes (Text): 04/19/17 11:32 Medical Attending: Patient was seen and examined by me. Agree with the above note by the resident. Today will stop the IV solumedrol and see how he does. It has been tapered over quite a period of time now. Also we are still pending AFB studies as well as repeat culture of the sputum studies. As mentioned previously he was + ESBL ecoli in the sputum. thank you Charles Preciado
[2017-04-19] MEDS: Albuterol-Ipratrop 3 mg / 0.5 (3 ml) UD INH SCH ×7 (00:15→23:59)
[2017-04-19 08:42] LABS: BASO # 0.1 K/uL (0.0-0.2); BASO % 0.5 % (0.0-2.0); EOS % 0.2 % (0.0-4.0); HEMATOCRIT 40.5 % (35.0-51.0); LYMPH # 2.6 K/uL (1.0-4.3); MEAN CELL VOLUME 87.6 fL (80.0-94.0); MEAN CORPUSCULAR HEMOGLOBIN 28.3 pg (27.0-31.0); MEAN CORPUSCULAR HGB CONC 32.2 g/dL (33.0-37.0); MEAN PLATELET VOLUME 8.9 fL (7.2-11.7); MONO # 1.7 K/uL (0.0-0.8); MONO % 12.7 % (0.0-10.0); NRBC % 0.1 % (0.0-2.0); RED CELL DISTRIBUTION WIDTH 16.6 % (11.5-14.5); WHITE BLOOD COUNT 13.1 K/uL (4.8-10.8)
[2017-04-19] MEDS: Fluticasone-Salmeterol 500-50mcg Diskus INH SCH ×2 (08:45→19:01)
[2017-04-19] MEDS: Tiotropium 18 mcg Cap For Inhalation INH SCH (08:45)
[2017-04-19 08:51] LABS: CHLORIDE 96 mmol/L (98-107); SODIUM 135 mmol/L (132-148)
[2017-04-19 08:53] LABS: ALKALINE PHOSPHATASE 47 U/L (38-126); AST/SGOT 18 U/L (17-59); BILIRUBIN,TOTAL 0.6 mg/dL (0.2-1.3); BLOOD UREA NITROGEN 28 mg/dL (9-20); CARBON DIOXIDE 29 mmol/L (22-30); GFR AFRICAN-AMERICAN > 60; TOTAL PROTEIN 5.8 g/dL (6.3-8.3)
[2017-04-19 08:54] LABS: ALT/SGPT 22 U/L (21-72); CALCIUM 8.4 mg/dl (8.6-10.4); GLUCOSE,RANDOM 109 mg/dL (75-110); MAGNESIUM 1.6 mg/dL (1.6-2.3); PHOSPHOROUS 2.8 mg/dL (2.5-4.5)
[2017-04-19 08:57] LABS: ALB/GLOB RATIO 1.1 (1.0-2.1)
[2017-04-19] MEDS: (Novolin R) Insulin Human Regular 100 units/ml vial SC SCH ×4 (08:57→22:12)
[2017-04-19] MEDS ORDERED: MethylPREDNISolone 40 mg Vial IVP SCH (10:00)
[2017-04-19] MEDS: Ammonium Lactate 12% Lotion (225 g) EXT SCH ×2 (10:06→18:13)
[2017-04-19] MEDS: Betamethasone Valerate 0.1% Lotion (60 ml) TOP SCH ×2 (10:07→18:12)
[2017-04-19] MEDS: (Lantus) Insulin Glargine, Recombinant SC SCH ×2 (10:10→18:12)
[2017-04-19] MEDS: Saccharomyces Boulardi 250 mg Cap PO SCH ×2 (12:43→18:10)
[2017-04-19] MEDS: Ergocalciferol 50,000 Intl Units Cap PO SCH (15:47)
[2017-04-20] MEDS: Albuterol-Ipratrop 3 mg / 0.5 (3 ml) UD INH SCH ×5 (03:18→23:46)
--- NOTE | 2017-04-20 05:11 | CP.PCM.PN ---
<Lu Schmidt - Last Filed: 04/20/17 05:07> Subjective - Date & Time of Evaluation Date of Evaluation: 04/20/17 Time of Evaluation: 02:00 - Subjective Subjective: PGY 1 Medicine Note- Dr. Preciado's service Patient seen and examined at beside. No acute complaints or events per nursing. Patient has continued productive cough with intermittent shortness of breath through the day. Patient denies subjective fevers or chills, headaches, chest pain, palpitations, paresthesias, nausea, vomiting, constipation and diarrhea at this time. Objective - Vital Signs/Intake and Output Vital Signs (last 24 hours): Temp Pulse Resp BP Pulse Ox 97.6 F 92 H 20 124/62 100 04/19/17 23:27 04/19/17 23:27 04/19/17 23:27 04/19/17 23:27 04/19/17 23:27 Intake and Output: 04/19/17 04/20/17 18:59 06:59 Intake Total 800 Balance 800 - Medications Medications: Current Medications Albuterol/Ipratropium (Duoneb 3 Mg/0.5 Mg (3 Ml) Ud) 3 ml INH RQ4 [facility] Last Admin: 04/20/17 03:18 Dose: Not Given Amlodipine Besylate (Norvasc) 5 mg PO DAILY [facility] Last Admin: 04/19/17 10:09 Dose: 5 mg Betamethasone Valerate (Betamethasone Valerate 0.1%) 0 ml TOP BID [facility] Last Admin: 04/19/17 18:12 Dose: 60 ml Ergocalciferol (Drisdol 50,000 Intl Units Cap) 1 cap PO Q7D [facility] Last Admin: 04/19/17 15:47 Dose: 1 cap Famotidine (Pepcid) 20 mg PO BID [facility] Last Admin: 04/19/17 18:10 Dose: 20 mg Glipizide (Glucotrol) 5 mg PO ACB [facility] Last Admin: 04/19/17 08:57 Dose: Not Given Guaifenesin/Dextromethorphan (Robitussin Dm) 10 ml PO Q4H PRN PRN Reason: Cough and congestion Last Admin: 04/15/17 10:16 Dose: 10 ml Imipenem/Cilastatin Sodium 500 (mg/ Sodium Chloride) 100 mls @ 100 mls/hr IVPB Q6 [facility] Last Admin: 04/19/17 23:52 Dose: 100 mls/hr Insulin Glargine (Lantus) 10 unit SC BID [facility] Last Admin: 04/19/17 18:12 Dose: 10 units Insulin Human Regular (Novolin R) 0 unit SC ACHS [facility] PRN Reason: Protocol Last Admin: 04/19/17 22:12 Dose: Not Given Lactic Acid (Lac-Hydrin 12% Lotion (225 G)) 0 gm EXT BID [facility] Last Admin: 04/19/17 18:13 Dose: 1 applic Loperamide HCl (Imodium) 2 mg PO QID PRN PRN Reason: Diarrhea Losartan Potassium (Cozaar) 25 mg PO DAILY [facility] Last Admin: 04/19/17 10:09 Dose: 25 mg Metformin HCl (Glucophage) 500 mg PO BID [facility] Last Admin: 04/19/17 18:10 Dose: 500 mg Ondansetron HCl (Zofran Inj) 4 mg IVP Q6H PRN PRN Reason: Nausea/Vomiting Prednisone (Prednisone Tab) 10 mg PO DAILY [facility] Roflumilast (Daliresp) 500 mcg PO DAILY [facility] Last Admin: 04/19/17 10:06 Dose: 500 mcg Saccharomyces Boulardii (Florastor) 250 mg PO BID [facility] Last Admin: 04/19/17 18:10 Dose: 250 mg Fluticasone/Salmeterol (Advair Diskus 500/50) 1 puff INH RQ12 [facility] Last Admin: 04/19/17 19:01 Dose: 1 puff Tiotropium Greene (Spiriva) 18 mcg INH RQ24 [facility] Last Admin: 04/19/17 08:45 Dose: 18 mcg - Labs Labs: 04/19/17 08:47 04/19/17 08:23 PT 13.3 SECONDS (9.7-12.2) H 04/04/17 18:46 INR 1.2 04/04/17 18:46 APTT 40 SECONDS (21-34) H 04/04/17 18:46 - Constitutional Appears: Non-toxic, No Acute Distress - Head Exam Head Exam: ATRAUMATIC, NORMAL INSPECTION, NORMOCEPHALIC - Eye Exam Eye Exam: EOMI, Normal appearance, PERRL Pupil Exam: NORMAL ACCOMODATION - ENT Exam ENT Exam: Mucous Membranes Moist - Neck Exam Neck Exam: Full ROM - Respiratory Exam Respiratory Exam: Decreased Breath Sounds, Rhonchi, Wheezes. absent: Chest Wall Tenderness, Clear to Ausculation Bilateral - Cardiovascular Exam Cardiovascular Exam: +S1, +S2 - GI/Abdominal Exam GI & Abdominal Exam: Soft, Normal Bowel Sounds. absent: Tenderness - Extremities Exam Extremities Exam: Full ROM, Normal Capillary Refill - Back Exam Back Exam: Full ROM - Neurological Exam Neurological Exam: Alert, Awake, CN II-XII Intact, Oriented x3 - Psychiatric Exam Psychiatric exam: Normal Affect, Normal Mood - Skin Skin Exam: Dry, Warm Assessment and Plan - Assessment and Plan (Free Text) Assessment: COPD Exacerbation likely secondary to acute bronchitis Patient has previous history of TB. Per Dr. Stewart, AFB sputum culture ordered. Induced sputum ordered. Wheezing has improved Leukocytosis remains. No bandemia noted Cough continued despite discontinuation of ZHANNA-I f/u repeat sputum culture 04/18- negative growth to date 04/08 Sputum positive for ESBL. Infectious disease, Dr. Stewart, consulted. Help appreciated. Placed on droplet precautions Alumni Relations Officer, Dr. Joseph consulted, help appreciated. Per Dr. Joseph, patient likely has COPD exacerbation from acute bronchitis. ZHANNA-I discontinued and patient started on Losartan 25 mg po daily. Patient also started on Roflumilast 500 mcg po daily and Spiriva 18 mcg INH RQ24h. Continue on Primaxin 500 mg IVPB q6h Decrease Solumedrol to 20 mg IVP daily Continue Pulmicort 0.5 mg INH Q12h Continue Duonebs RQ4h scheduled Discontinue Albuterol 1.25 INH RQ3 prn wheezing Guaifenesin/Dextromethorphan 10 ml po q4h PRN for cough Florastor BID probiotic agent ROMIs negative x [address] w/o contrast: There are atelectatic/scarring changes both lung bases including on the lingular and middle lobe regions. Central lobular emphysematous changes with upper lobe predominance. There are also small bulla and/or of large bleb changes in the right lung apex and to a lesser degree left and at anterior upper lung field. Small calcific granuloma left lobe apex. Small nodule lateral aspect left upper lobe and another in the right lower lobe. Followup CT scan 3 months could be performed to assess stability. In situ IVC filter. (see full report) CXR- 04/04/17- Vague patchy opacity seen in the right lung base could represent atelectasis vs developing infiltrate. Minimal left basilar atelectasis. (Please see full report) Dysuria UA: negative urine culture - negative Urinalysis: yeast Urine Culture negative (04/09/17) Discontinue Diflucan 200 mg po daily Diarrhea Resolved c. diff negative Patient noted blood per stool. 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 Will stop Betamethasone after this week and try pulse therapy. Nursing communication order for topical lotion to set at bedside for other affected areas. Prophylactic Measures Pepcid 20 mg po BID Held Heparin due to hx of retroperitoneal bleed <Charles Preciado H - Last Filed: 04/20/17 10:21> Objective - Vital Signs/Intake and Output Vital Signs (last 24 hours): Temp Pulse Resp BP Pulse Ox 98.2 F 65 18 132/73 98 04/20/17 08:00 04/20/17 08:00 04/20/17 08:00 04/20/17 08:00 04/20/17 08:00 Intake and Output: 04/20/17 04/20/17 06:59 18:59 Intake Total 800 Balance 800 - Medications Medications: Current Medications Albuterol/Ipratropium (Duoneb 3 Mg/0.5 Mg (3 Ml) Ud) 3 ml INH RQ4 [facility] Last Admin: 04/20/17 09:08 Dose: 3 ml Amlodipine Besylate (Norvasc) 5 mg PO DAILY [facility] Last Admin: 04/19/17 10:09 Dose: 5 mg Betamethasone Valerate (Betamethasone Valerate 0.1%) 0 ml TOP BID [facility] Last Admin: 04/19/17 18:12 Dose: 60 ml Ergocalciferol (Drisdol 50,000 Intl Units Cap) 1 cap PO Q7D [facility] Last Admin: 04/19/17 15:47 Dose: 1 cap Glipizide (Glucotrol) 5 mg PO ACB [facility] Last Admin: 04/19/17 08:57 Dose: Not Given Guaifenesin/Dextromethorphan (Robitussin Dm) 10 ml PO Q4H PRN PRN Reason: Cough and congestion Last Admin: 04/15/17 10:16 Dose: 10 ml Imipenem/Cilastatin Sodium 500 (mg/ Sodium Chloride) 100 mls @ 100 mls/hr IVPB Q6 [facility] Last Admin: 04/20/17 05:18 Dose: 100 mls/hr Insulin Glargine (Lantus) 10 unit SC BID [facility] Last Admin: 04/19/17 18:12 Dose: 10 units Insulin Human Regular (Novolin R) 0 unit SC ACHS [facility] PRN Reason: Protocol Last Admin: 04/20/17 08:14 Dose: Not Given Lactic Acid (Lac-Hydrin 12% Lotion (225 G)) 0 gm EXT BID [facility] Last Admin: 04/19/17 18:13 Dose: 1 applic Loperamide HCl (Imodium) 2 mg PO QID PRN PRN Reason: Diarrhea Losartan Potassium (Cozaar) 25 mg PO DAILY [facility] Last Admin: 04/19/17 10:09 Dose: 25 mg Metformin HCl (Glucophage) 500 mg PO BID [facility] Last Admin: 04/19/17 18:10 Dose: 500 mg Ondansetron HCl (Zofran Inj) 4 mg IVP Q6H PRN PRN Reason: Nausea/Vomiting Prednisone (Prednisone Tab) 10 mg PO DAILY [facility] Roflumilast (Daliresp) 500 mcg PO DAILY [facility] Last Admin: 04/19/17 10:06 Dose: 500 mcg Saccharomyces Boulardii (Florastor) 250 mg PO BID [facility] Last Admin: 04/19/17 18:10 Dose: 250 mg Fluticasone/Salmeterol (Advair Diskus 500/50) 1 puff INH RQ12 [facility] Last Admin: 04/20/17 09:07 Dose: 1 puff Tiotropium Greene (Spiriva) 18 mcg INH RQ24 [facility] Last Admin: 04/20/17 09:08 Dose: 18 mcg - Labs Labs: 04/20/17 08:14 04/20/17 08:14 PT 13.3 SECONDS (9.7-12.2) H 04/04/17 18:46 INR 1.2 04/04/17 18:46 APTT 40 SECONDS (21-34) H 04/04/17 18:46 Attending/Attestation - Attestation I have personally seen and examined this patient.: Yes I have fully participated in the care of the patient.: Yes I have reviewed all pertinent clinical information, including history, physical exam and plan: Yes Notes (Text): 04/20/17 10:19 Medical Attending: Patient was seen and examined by me. Agree with the above note by the resident The patient was changed from IV solumedrol to PO prednisone yesterday. He looked ok when I saw him. A new sputum culture came back and is negative. The AFB studies are still pending at this time.
[2017-04-20] MEDS: (Novolin R) Insulin Human Regular 100 units/ml vial SC SCH ×3 (08:14→17:26)
[2017-04-20 08:33] LABS: BASO % 0.2 % (0.0-2.0); EOS # 0.1 K/uL (0.0-0.7); EOS % 0.4 % (0.0-4.0); HEMATOCRIT 40.6 % (35.0-51.0); LYMPH # 2.8 K/uL (1.0-4.3); LYMPH % 20.4 % (20.0-40.0); MEAN CELL VOLUME 87.1 fL (80.0-94.0); MEAN CORPUSCULAR HEMOGLOBIN 27.9 pg (27.0-31.0); MEAN PLATELET VOLUME 8.9 fL (7.2-11.7); MONO # 1.7 K/uL (0.0-0.8); MONO % 12.4 % (0.0-10.0); RED CELL DISTRIBUTION WIDTH 16.8 % (11.5-14.5); WHITE BLOOD COUNT 13.9 K/uL (4.8-10.8)
[2017-04-20 08:53] LABS: CHLORIDE 101 mmol/L (98-107)
[2017-04-20 08:54] LABS: POTASSIUM 4.2 mmol/L (3.6-5.2); SODIUM 136 mmol/L (132-148)
[2017-04-20 08:56] LABS: ALB/GLOB RATIO 1.3 (1.0-2.1); ALKALINE PHOSPHATASE 45 U/L (38-126); AST/SGOT 18 U/L (17-59); BILIRUBIN,TOTAL 0.7 mg/dL (0.2-1.3); BLOOD UREA NITROGEN 33 mg/dL (9-20); CARBON DIOXIDE 29 mmol/L (22-30); GFR AFRICAN-AMERICAN > 60; GLUCOSE,RANDOM 70 mg/dL (75-110); PHOSPHOROUS 2.8 mg/dL (2.5-4.5)
[2017-04-20 08:57] LABS: ALT/SGPT 17 U/L (21-72); MAGNESIUM 1.8 mg/dL (1.6-2.3)
[2017-04-20] MEDS: Fluticasone-Salmeterol 500-50mcg Diskus INH SCH ×2 (09:07→19:29)
[2017-04-20] MEDS: Tiotropium 18 mcg Cap For Inhalation INH SCH (09:08)
[2017-04-20] MEDS: (Lantus) Insulin Glargine, Recombinant SC SCH ×2 (10:58→17:26)
[2017-04-20] MEDS: Ammonium Lactate 12% Lotion (225 g) EXT SCH ×2 (10:59→17:28)
[2017-04-20] MEDS: Betamethasone Valerate 0.1% Lotion (60 ml) TOP SCH ×2 (10:59→17:29)
[2017-04-20] MEDS: Saccharomyces Boulardi 250 mg Cap PO SCH ×2 (11:10→17:26)
[2017-04-21] MEDS: Albuterol-Ipratrop 3 mg / 0.5 (3 ml) UD INH SCH ×5 (03:34→20:42)
[2017-04-21 07:37] LABS: BASO % 0.3 % (0.0-2.0); EOS # 0.1 K/uL (0.0-0.7); EOS % 1.2 % (0.0-4.0); HEMATOCRIT 38.6 % (35.0-51.0); LYMPH # 2.9 K/uL (1.0-4.3); LYMPH % 23.7 % (20.0-40.0); MEAN CELL VOLUME 86.9 fL (80.0-94.0); MEAN CORPUSCULAR HEMOGLOBIN 28.2 pg (27.0-31.0); MEAN CORPUSCULAR HGB CONC 32.4 g/dL (33.0-37.0); MEAN PLATELET VOLUME 8.7 fL (7.2-11.7); MONO # 1.4 K/uL (0.0-0.8); MONO % 11.9 % (0.0-10.0); RED CELL DISTRIBUTION WIDTH 16.9 % (11.5-14.5); WHITE BLOOD COUNT 12.1 K/uL (4.8-10.8)
[2017-04-21 07:47] LABS: CHLORIDE 99 mmol/L (98-107)
[2017-04-21] MEDS: Tiotropium 18 mcg Cap For Inhalation INH SCH (07:47)
[2017-04-21] MEDS: Fluticasone-Salmeterol 500-50mcg Diskus INH SCH ×2 (07:47→20:42)
[2017-04-21 07:48] LABS: POTASSIUM 4.2 mmol/L (3.6-5.2); SODIUM 133 mmol/L (132-148)
[2017-04-21 07:50] LABS: ALB/GLOB RATIO 1.3 (1.0-2.1); ALKALINE PHOSPHATASE 45 U/L (38-126); ALT/SGPT 18 U/L (21-72); AST/SGOT 15 U/L (17-59); BILIRUBIN,TOTAL 0.6 mg/dL (0.2-1.3); BLOOD UREA NITROGEN 37 mg/dL (9-20); CARBON DIOXIDE 26 mmol/L (22-30); GFR AFRICAN-AMERICAN > 60; TOTAL PROTEIN 5.4 g/dL (6.3-8.3)
[2017-04-21 07:51] LABS: CALCIUM 8.3 mg/dl (8.6-10.4); GLUCOSE,RANDOM 76 mg/dL (75-110); MAGNESIUM 1.6 mg/dL (1.6-2.3); PHOSPHOROUS 4.1 mg/dL (2.5-4.5)
[2017-04-21] MEDS: (Novolin R) Insulin Human Regular 100 units/ml vial SC SCH ×5 (10:51→21:21)
[2017-04-21] MEDS: Betamethasone Valerate 0.1% Lotion (60 ml) TOP SCH ×2 (10:51→19:08)
[2017-04-21] MEDS: Ammonium Lactate 12% Lotion (225 g) EXT SCH ×2 (10:51→18:59)
[2017-04-21] MEDS: (Lantus) Insulin Glargine, Recombinant SC SCH ×2 (10:51→18:29)
[2017-04-21] MEDS: Saccharomyces Boulardi 250 mg Cap PO SCH ×2 (14:23→19:08)
--- NOTE | 2017-04-21 14:24 | CP.PCM.PN ---
<Alba Toribio - Last Filed: 04/21/17 20:08> Subjective - Date & Time of Evaluation Date of Evaluation: 04/21/17 Time of Evaluation: 14:21 - Subjective Subjective: Medicine- Dr. Elise: Patient presented with SOB and a productive cough with yellow-green sputum on 04/04/17. Patient was seen and examined and was in no acute distress. He states he is feeling a little better today and less SOB. He reports having pain in his chest upon inhalation, and abdominal pain. He is still couching up yellow green sputum. He denies palpitations, dizziness, constipation, diarrhea, fever, chills , nausea and vomiting. Objective - Vital Signs/Intake and Output Vital Signs (last 24 hours): Temp Pulse Resp BP Pulse Ox 97.8 F 86 20 136/73 99 04/21/17 08:53 04/21/17 08:53 04/21/17 08:53 04/21/17 08:53 04/21/17 08:53 Intake and Output: 04/21/17 04/21/17 06:59 18:59 Output Total 350 Balance -350 - Medications Medications: Current Medications Albuterol/Ipratropium (Duoneb 3 Mg/0.5 Mg (3 Ml) Ud) 3 ml INH RQ4 [facility] Last Admin: 04/21/17 07:47 Dose: 3 ml Amlodipine Besylate (Norvasc) 5 mg PO DAILY [facility] Last Admin: 04/21/17 10:50 Dose: 5 mg Betamethasone Valerate (Betamethasone Valerate 0.1%) 0 ml TOP BID [facility] Last Admin: 04/21/17 10:51 Dose: 1 ml Ergocalciferol (Drisdol 50,000 Intl Units Cap) 1 cap PO Q7D [facility] Stop: 05/24/17 10:16 Glipizide (Glucotrol) 5 mg PO ACB [facility] Last Admin: 04/19/17 08:57 Dose: Not Given Guaifenesin/Dextromethorphan (Robitussin Dm) 10 ml PO Q4H PRN PRN Reason: Cough and congestion Last Admin: 04/15/17 10:16 Dose: 10 ml Imipenem/Cilastatin Sodium 500 (mg/ Sodium Chloride) 100 mls @ 100 mls/hr IVPB Q6 [facility] Last Admin: 04/21/17 05:00 Dose: 100 mls/hr Ibuprofen (Motrin Tab) 600 mg PO TID PRN PRN Reason: Pain, moderate (4-7) Last Admin: 04/21/17 01:58 Dose: 600 mg Insulin Glargine (Lantus) 10 unit SC BID [facility] Last Admin: 04/21/17 10:51 Dose: 10 units Insulin Human Regular (Novolin R) 0 unit SC ACHS [facility] PRN Reason: Protocol Last Admin: 04/21/17 10:51 Dose: Not Given Lactic Acid (Lac-Hydrin 12% Lotion (225 G)) 0 gm EXT BID [facility] Last Admin: 04/21/17 10:51 Dose: 1 applic Loperamide HCl (Imodium) 2 mg PO QID PRN PRN Reason: Diarrhea Losartan Potassium (Cozaar) 25 mg PO DAILY [facility] Last Admin: 04/21/17 10:50 Dose: 25 mg Metformin HCl (Glucophage) 500 mg PO BID [facility] Last Admin: 04/21/17 10:50 Dose: 500 mg Ondansetron HCl (Zofran Inj) 4 mg IVP Q6H PRN PRN Reason: Nausea/Vomiting Prednisone (Prednisone Tab) 30 mg PO DAILY [facility] Roflumilast (Daliresp) 500 mcg PO DAILY [facility] Last Admin: 04/21/17 10:50 Dose: 500 mcg Saccharomyces Boulardii (Florastor) 250 mg PO BID [facility] Last Admin: 04/20/17 17:26 Dose: 250 mg Fluticasone/Salmeterol (Advair Diskus 500/50) 1 puff INH RQ12 [facility] Last Admin: 04/21/17 07:47 Dose: 1 puff Tiotropium [place] (Spiriva) 18 mcg INH RQ24 [facility] Last Admin: 04/21/17 07:47 Dose: 18 mcg - Labs Labs: 04/21/17 07:19 04/21/17 07:19 PT 13.3 SECONDS (9.7-12.2) H 04/04/17 18:46 INR 1.2 04/04/17 18:46 APTT 40 SECONDS (21-34) H 04/04/17 18:46 - Constitutional Appears: No Acute Distress - Head Exam Head Exam: ATRAUMATIC, NORMAL INSPECTION - Eye Exam Eye Exam: EOMI, Normal appearance - ENT Exam ENT Exam: Mucous Membranes Moist - Neck Exam Neck Exam: Full ROM, Normal Inspection - Respiratory Exam Respiratory Exam: Accessory Muscle Use, Rhonchi, Wheezes - Cardiovascular Exam Cardiovascular Exam: REGULAR RHYTHM - GI/Abdominal Exam GI & Abdominal Exam: Soft, Tenderness, Normal Bowel Sounds - Extremities Exam Extremities Exam: absent: Pedal Edema, Tenderness - Neurological Exam Neurological Exam: Alert, Awake, Oriented x3 - Psychiatric Exam Psychiatric exam: Normal Affect, Normal Mood - Skin Skin Exam: Dry, Warm Assessment and Plan (1) COPD exacerbation Assessment & Plan: Infectious disease consult placed- Dr. Stewart, help appreciated As per Dr. Stewart, continue Imipenem/Cilastin for two more days (stop 04/23) Patient has previous history of TB. AFB results pending. Sputum culture: normal oral leah Wheezing and Rhonchi have mildly improved Increased Prednisone to 30mg PO Daily Continue Albuterol 3ml INH RQ4 [facility] Continue Guaifenesin/Dextromethorphan 10ml PO Q4H PRN Continue Spiriva 18mcg INH RQ24 [facility] Continue Advair Diskus 500/50 1 puff INH RQ12 [facility] Repeat chest xray 04/21: suggestive of infiltrate or atelectasis at left lung base, blunting of left costophrenic angle which may represnt pleural thickening or trace effusion. venous congestion and/or interstitial airspace opacities; Biapical pleural thickening with upper lobe granulomatous changes Status: Acute (2) Dysuria Assessment & Plan: UA: negative urine culture - negative Urinalysis: yeast Urine Culture negative (04/09/17) Status: Resolved (3) Diarrhea Assessment & Plan: c. diff negative no diarrhea reported stop Immodium 2 mg po QID prn diarrhea Status: Resolved (4) Diabetes mellitus Assessment & Plan: Hemoglobin A1c 6.7 (04/05/17) Glipizide 5mg PO ACB [facility] Lantus 10 units SC BID Novolin R ISS Metformin 500 mg PO BID [facility] Monitor Status: Acute (5) Hypertension Assessment & Plan: Continue Cozaar 25mg PO daily Continue Amlodipine 5mg PO Daily Monitor Status: Chronic (6) Hx pulmonary embolism Assessment & Plan: IVC filter in place O2 prn via NC no anticoagulation due to hx of retroperitoneal bleed. Status: Resolved (7) Hematoma Assessment & Plan: On Right upper extremity. Doppler results: pending Status: Acute (8) Annular psoriasis Assessment & Plan: Improved with scaly plaques Continue LacHydrin 12% to affected scaly areas BID Continue Betamethasone Valerate 0.1% to affected pruritic areas BID for two weeks (started on 04/18/17). Will stop Betamethasone after this week and try pulse therapy. Nursing communication order for topical lotion to set at bedside for other affected areas. Status: Acute (9) Vitamin D deficiency Assessment & Plan: Vitamin D below 12 on admission Continue Ergocalciferol 50,000 weekly Status: Acute (10) Prophylactic measure Assessment & Plan: Held chemical anticoagulation due to hx of retroperitoneal bleed SCDs Pepcid 20mg BID Status: Acute <Jerry Elise M - Last Filed: 04/22/17 07:38> Objective - Vital Signs/Intake and Output Vital Signs (last 24 hours): Temp Pulse Resp BP Pulse Ox 97.5 F L 91 H 20 128/74 98 04/21/17 23:41 04/21/17 23:41 04/21/17 23:41 04/21/17 23:41 04/21/17 23:41 Intake and Output: 04/22/17 04/22/17 06:59 18:59 Intake Total 800 Balance 800 - Medications Medications: Current Medications Albuterol/Ipratropium (Duoneb 3 Mg/0.5 Mg (3 Ml) Ud) 3 ml INH RQ4 [facility] Last Admin: 04/22/17 03:48 Dose: Not Given Amlodipine Besylate (Norvasc) 5 mg PO DAILY [facility] Last Admin: 04/21/17 10:50 Dose: 5 mg Betamethasone Valerate (Betamethasone Valerate 0.1%) 0 ml TOP BID [facility] Last Admin: 04/21/17 19:08 Dose: 60 ml Ergocalciferol (Drisdol 50,000 Intl Units Cap) 1 cap PO Q7D [facility] Stop: 05/24/17 10:16 Famotidine (Pepcid) 20 mg PO BID [facility] Last Admin: 04/21/17 21:06 Dose: 20 mg Glipizide (Glucotrol) 5 mg PO ACB [facility] Last Admin: 04/19/17 08:57 Dose: Not Given Guaifenesin/Dextromethorphan (Robitussin Dm) 10 ml PO Q4H PRN PRN Reason: Cough and congestion Last Admin: 04/15/17 10:16 Dose: 10 ml Imipenem/Cilastatin Sodium 500 (mg/ Sodium Chloride) 100 mls @ 100 mls/hr IVPB Q6 [facility] Last Admin: 04/22/17 05:00 Dose: 100 mls/hr Ibuprofen (Motrin Tab) 600 mg PO TID PRN PRN Reason: Pain, moderate (4-7) Last Admin: 04/21/17 01:58 Dose: 600 mg Insulin Glargine (Lantus) 10 unit SC BID [facility] Last Admin: 04/21/17 18:29 Dose: 10 units Insulin Human Regular (Novolin R) 0 unit SC ACHS [facility] PRN Reason: Protocol Last Admin: 04/21/17 21:21 Dose: Not Given Lactic Acid (Lac-Hydrin 12% Lotion (225 G)) 0 gm EXT BID [facility] Last Admin: 04/21/17 18:59 Dose: 1 applic Losartan Potassium (Cozaar) 25 mg PO DAILY [facility] Last Admin: 04/21/17 10:50 Dose: 25 mg Metformin HCl (Glucophage) 500 mg PO BID [facility] Last Admin: 04/21/17 18:30 Dose: 500 mg Ondansetron HCl (Zofran Inj) 4 mg IVP Q6H PRN PRN Reason: Nausea/Vomiting Prednisone (Prednisone Tab) 30 mg PO DAILY [facility] Roflumilast (Daliresp) 500 mcg PO DAILY [facility] Last Admin: 04/21/17 10:50 Dose: 500 mcg Saccharomyces Boulardii (Florastor) 250 mg PO BID [facility] Last Admin: 04/21/17 19:08 Dose: 250 mg Fluticasone/Salmeterol (Advair Diskus 500/50) 1 puff INH RQ12 [facility] Last Admin: 04/21/17 20:42 Dose: 1 puff Tiotropium [place] (Spiriva) 18 mcg INH RQ24 [facility] Last Admin: 04/21/17 07:47 Dose: 18 mcg - Labs Labs: 04/21/17 07:19 04/21/17 07:19 PT 13.3 SECONDS (9.7-12.2) H 04/04/17 18:46 INR 1.2 04/04/17 18:46 APTT 40 SECONDS (21-34) H 04/04/17 18:46 Attending/Attestation - Attestation I have personally seen and examined this patient.: Yes I have fully participated in the care of the patient.: Yes I have reviewed all pertinent clinical information, including history, physical exam and plan: Yes Notes (Text): 04/22/17 07:35 Patient seen and examined at bedside with the resident Patient still has the significant wheezing but it is improving slowly. Patient will continue on IV antibiotics. Patient is on imipenem as per the recommendations of ID Follow-up AFB smear to rule out tuberculosis. Patient is on respiratory isolation. Repeat chest x-ray report reviewed. Patient has a swelling and hematoma of the right upper extremity. Doppler is completed. No abnormality reported in the Dopplers. I discussed the plan of care with the resident and agree with the history and physical and assessment/plan by the resident.
--- NOTE | 2017-04-21 16:14 | RAD ---
Chest x-ray two views History: Follow-up cough. Comparison: 04/09/2017 Findings: Persistent patchy increased markings at the left lung base suggestive for infiltrate and or atelectasis with blunting of the left costophrenic angle which may represent pleural thickening and or trace effusion. More linear radiopaque density seen at the lateral aspect of the left lung base. Venous congestion and or interstitial airspace opacities. Right hilar prominence. Biapical pleural thickening with upper lobe granulomatous changes. Mild cardiomegaly. Degenerative changes in the spine. Impression: Persistent patchy increased markings at the left lung base suggestive for infiltrate and or atelectasis with blunting of the left costophrenic angle which may represent pleural thickening and or trace effusion. More linear radiopaque density seen at the lateral aspect of the left lung base. Venous congestion and or interstitial airspace opacities. Right hilar prominence. Biapical pleural thickening with upper lobe granulomatous changes. Mild cardiomegaly.
[2017-04-22] MEDS: Albuterol-Ipratrop 3 mg / 0.5 (3 ml) UD INH SCH ×6 (01:40→19:11)
[2017-04-22] MEDS: Fluticasone-Salmeterol 500-50mcg Diskus INH SCH ×2 (07:45→19:11)
[2017-04-22] MEDS: Tiotropium 18 mcg Cap For Inhalation INH SCH (07:46)
--- NOTE | 2017-04-22 07:49 | CP.PCM.PN ---
<Alba Toribio - Last Filed: 04/22/17 18:52> Subjective - Date & Time of Evaluation Date of Evaluation: 04/22/17 Time of Evaluation: 16:31 - Subjective Subjective: Medicine Progress Note- Dr. Elise Service: Patient was seen and examined at beside in no acute distress. Patient reports his breathing has improved and he feels less short of breath. Patient reports having occasional palpitations this morning, but denies chest pain. He states his right arm is painful in the location of his hematoma. Patient reports having constipation. Patient denies nausea, vomiting, dizziness, diarrhea, fever , and chills. Objective - Vital Signs/Intake and Output Vital Signs (last 24 hours): Temp Pulse Resp BP Pulse Ox 97.5 F L 91 H 20 128/74 98 04/21/17 23:41 04/21/17 23:41 04/21/17 23:41 04/21/17 23:41 04/21/17 23:41 Intake and Output: 04/22/17 04/22/17 06:59 18:59 Intake Total 800 Balance 800 - Medications Medications: Current Medications Albuterol/Ipratropium (Duoneb 3 Mg/0.5 Mg (3 Ml) Ud) 3 ml INH RQ4 [facility] Last Admin: 04/22/17 07:45 Dose: 3 ml Amlodipine Besylate (Norvasc) 5 mg PO DAILY [facility] Last Admin: 04/21/17 10:50 Dose: 5 mg Betamethasone Valerate (Betamethasone Valerate 0.1%) 0 ml TOP BID [facility] Last Admin: 04/21/17 19:08 Dose: 60 ml Ergocalciferol (Drisdol 50,000 Intl Units Cap) 1 cap PO Q7D [facility] Stop: 05/24/17 10:16 Famotidine (Pepcid) 20 mg PO BID [facility] Last Admin: 04/21/17 21:06 Dose: 20 mg Glipizide (Glucotrol) 5 mg PO ACB [facility] Last Admin: 04/19/17 08:57 Dose: Not Given Guaifenesin/Dextromethorphan (Robitussin Dm) 10 ml PO Q4H PRN PRN Reason: Cough and congestion Last Admin: 04/15/17 10:16 Dose: 10 ml Imipenem/Cilastatin Sodium 500 (mg/ Sodium Chloride) 100 mls @ 100 mls/hr IVPB Q6 [facility] Last Admin: 04/22/17 05:00 Dose: 100 mls/hr Ibuprofen (Motrin Tab) 600 mg PO TID PRN PRN Reason: Pain, moderate (4-7) Last Admin: 04/21/17 01:58 Dose: 600 mg Insulin Glargine (Lantus) 10 unit SC BID [facility] Last Admin: 04/21/17 18:29 Dose: 10 units Insulin Human Regular (Novolin R) 0 unit SC ACHS [facility] PRN Reason: Protocol Last Admin: 04/21/17 21:21 Dose: Not Given Lactic Acid (Lac-Hydrin 12% Lotion (225 G)) 0 gm EXT BID [facility] Last Admin: 04/21/17 18:59 Dose: 1 applic Losartan Potassium (Cozaar) 25 mg PO DAILY [facility] Last Admin: 04/21/17 10:50 Dose: 25 mg Metformin HCl (Glucophage) 500 mg PO BID [facility] Last Admin: 04/21/17 18:30 Dose: 500 mg Ondansetron HCl (Zofran Inj) 4 mg IVP Q6H PRN PRN Reason: Nausea/Vomiting Prednisone (Prednisone Tab) 30 mg PO DAILY [facility] Roflumilast (Daliresp) 500 mcg PO DAILY [facility] Last Admin: 04/21/17 10:50 Dose: 500 mcg Saccharomyces Boulardii (Florastor) 250 mg PO BID [facility] Last Admin: 04/21/17 19:08 Dose: 250 mg Fluticasone/Salmeterol (Advair Diskus 500/50) 1 puff INH RQ12 [facility] Last Admin: 04/22/17 07:45 Dose: 1 puff Tiotropium [place] (Spiriva) 18 mcg INH RQ24 [facility] Last Admin: 04/22/17 07:46 Dose: 18 mcg - Labs Labs: 04/21/17 07:19 04/21/17 07:19 PT 13.3 SECONDS (9.7-12.2) H 04/04/17 18:46 INR 1.2 04/04/17 18:46 APTT 40 SECONDS (21-34) H 04/04/17 18:46 - Constitutional Appears: Non-toxic, No Acute Distress - Head Exam Head Exam: NORMAL INSPECTION, NORMOCEPHALIC - Eye Exam Eye Exam: EOMI, Normal appearance - ENT Exam ENT Exam: Mucous Membranes Moist - Neck Exam Neck Exam: Full ROM, Normal Inspection - Respiratory Exam Respiratory Exam: Rhonchi, Wheezes, NORMAL BREATHING PATTERN - Cardiovascular Exam Cardiovascular Exam: REGULAR RHYTHM - GI/Abdominal Exam GI & Abdominal Exam: Soft, Tenderness, Normal Bowel Sounds Additional comments: with palpation in all quadrants - Extremities Exam Extremities Exam: absent: Calf Tenderness, Pedal Edema, Tenderness - Neurological Exam Neurological Exam: Alert, Awake, Oriented x3 - Psychiatric Exam Psychiatric exam: Normal Affect, Normal Mood - Skin Skin Exam: Dry, Normal Color, Warm Additional comments: hematoma on right upper extremity psoriatic scaling plaques on abdomen Assessment and Plan (1) COPD exacerbation Assessment & Plan: Infectious disease consult placed- Dr. Stewart, help appreciated As per Dr. Stewart, continue Imipenem/Cilastin for one more day (stop 04/23) Patient has previous history of TB. AFB results pending. Gold QuantiFERON ordered 04/22/[address] Stewart- results pending Sputum culture: normal oral leah Wheezing and Rhonchi have mildly improved Increased Prednisone to 30mg PO Daily (on 04/21) Continue Albuterol 3ml INH RQ4 [facility] Continue Guaifenesin/Dextromethorphan 10ml PO Q4H PRN Continue Spiriva 18mcg INH RQ24 [facility] Continue Advair Diskus 500/50 1 puff INH RQ12 [facility] Repeat chest xray 04/21: suggestive of infiltrate or atelectasis at left lung base, blunting of left costophrenic angle which may represnt pleural thickening or trace effusion. venous congestion and/or interstitial airspace opacities; Biapical pleural thickening with upper lobe granulomatous changes EKG on 04/22/17- sinus rhythm Status: Acute (2) Dysuria Assessment & Plan: UA: negative urine culture - negative Urinalysis: yeast Urine Culture negative (04/09/17) Status: Resolved (3) Diarrhea Assessment & Plan: c. diff negative no diarrhea reported stopped Immodium 2 mg po QID prn diarrhea Status: Resolved (4) Diabetes mellitus Assessment & Plan: Hemoglobin A1c 6.7 (04/05/17) Glipizide 5mg PO ACB [facility] Lantus 10 units SC BID Novolin R ISS Metformin 500 mg PO BID [facility] Monitor Status: Acute (5) Hypertension Assessment & Plan: Continue Cozaar 25mg PO daily Continue Amlodipine 5mg PO Daily Monitor Status: Chronic (6) Hx pulmonary embolism Assessment & Plan: IVC filter in place O2 prn via NC no anticoagulation due to hx of retroperitoneal bleed. Status: Resolved (7) Hematoma Assessment & Plan: On Right upper extremity. Doppler results: negative Possible Phlebitis: warm compress and Motrin 600mg PO TID PRN Status: Acute (8) Annular psoriasis Assessment & Plan: Improved with scaly plaques Continue LacHydrin 12% to affected scaly areas BID Continue Betamethasone Valerate 0.1% to affected pruritic areas BID for two weeks (started on 04/18/17). Will stop Betamethasone after this week and try pulse therapy. Nursing communication order for topical lotion to set at bedside for other affected areas. Status: Acute (9) Vitamin D deficiency Assessment & Plan: Vitamin D below 12 on admission Continue Ergocalciferol 50,000 weekly Status: Acute (10) Prophylactic measure Assessment & Plan: Held chemical anticoagulation due to hx of retroperitoneal bleed SCDs Discontinue Pepcid 20mg PO Start Protonix 40mg PO Daily (04/22/17) Status: Acute <Jerry Elise M - Last Filed: 04/23/17 16:53> Objective - Vital Signs/Intake and Output Vital Signs (last 24 hours): Temp Pulse Resp BP Pulse Ox 97.6 F 80 20 152/75 H 96 04/23/17 08:21 04/23/17 11:06 04/23/17 08:21 04/23/17 11:06 04/23/17 08:21 Intake and Output: 04/23/17 04/23/17 06:59 18:59 Intake Total 600 Balance 600 - Medications Medications: Current Medications Albuterol/Ipratropium (Duoneb 3 Mg/0.5 Mg (3 Ml) Ud) 3 ml INH RQ4 [facility] Last Admin: 04/23/17 15:43 Dose: 3 ml Amlodipine Besylate (Norvasc) 5 mg PO DAILY [facility] Last Admin: 04/23/17 11:09 Dose: 5 mg Betamethasone Valerate (Betamethasone Valerate 0.1%) 0 ml TOP BID [facility] Last Admin: 04/23/17 11:10 Dose: 60 ml Ergocalciferol (Drisdol 50,000 Intl Units Cap) 1 cap PO Q7D [facility] Stop: 05/24/17 10:16 Glipizide (Glucotrol) 5 mg PO ACB [facility] Last Admin: 04/19/17 08:57 Dose: Not Given Guaifenesin/Dextromethorphan (Robitussin Dm) 10 ml PO Q4H PRN PRN Reason: Cough and congestion Last Admin: 04/15/17 10:16 Dose: 10 ml Imipenem/Cilastatin Sodium 500 (mg/ Sodium Chloride) 100 mls @ 100 mls/hr IVPB Q6 [facility] Last Admin: 04/23/17 13:15 Dose: 100 mls/hr Ibuprofen (Motrin Tab) 600 mg PO TID PRN PRN Reason: Pain, moderate (4-7) Insulin Glargine (Lantus) 10 unit SC BID [facility] Last Admin: 04/23/17 11:09 Dose: 10 units Insulin Human Regular (Novolin R) 0 unit SC ACHS [facility] PRN Reason: Protocol Last Admin: 04/23/17 12:34 Dose: Not Given Lactic Acid (Lac-Hydrin 12% Lotion (225 G)) 0 gm EXT BID [facility] Last Admin: 04/23/17 11:10 Dose: 1 applic Losartan Potassium (Cozaar) 25 mg PO DAILY [facility] Last Admin: 04/23/17 11:08 Dose: 25 mg Metformin HCl (Glucophage) 500 mg PO BID [facility] Last Admin: 04/23/17 11:08 Dose: 500 mg Ondansetron HCl (Zofran Inj) 4 mg IVP Q6H PRN PRN Reason: Nausea/Vomiting Pantoprazole Sodium (Protonix Ec Tab) 40 mg PO DAILY [facility] Last Admin: 04/23/17 11:08 Dose: 40 mg Prednisone (Prednisone Tab) 30 mg PO DAILY [facility] Last Admin: 04/23/17 11:08 Dose: 30 mg Roflumilast (Daliresp) 500 mcg PO DAILY [facility] Last Admin: 04/23/17 11:08 Dose: 500 mcg Saccharomyces Boulardii (Florastor) 250 mg PO BID [facility] Last Admin: 04/23/17 11:08 Dose: 250 mg Fluticasone/Salmeterol (Advair Diskus 500/50) 1 puff INH RQ12 [facility] Last Admin: 04/23/17 07:19 Dose: 1 puff Tiotropium [place] (Spiriva) 18 mcg INH RQ24 [facility] Last Admin: 04/23/17 07:19 Dose: 18 mcg - Labs Labs: 04/23/17 07:50 04/23/17 07:50 PT 13.3 SECONDS (9.7-12.2) H 04/04/17 18:46 INR 1.2 04/04/17 18:46 APTT 40 SECONDS (21-34) H 04/04/17 18:46 Attending/Attestation - Attestation I have personally seen and examined this patient.: Yes I have fully participated in the care of the patient.: Yes I have reviewed all pertinent clinical information, including history, physical exam and plan: Yes Notes (Text): 04/23/17 16:52 patient was seen and examined at bedside. Still complains of cough and expectoration Follow-up AFB smears. Continue antibiotic for pneumonia. Discussed with ID. I agree with the above history and physical and assessment/plan by the resident
[2017-04-22 08:38] LABS: BASO % 0.2 % (0.0-2.0); EOS # 0.1 K/uL (0.0-0.7); HEMATOCRIT 40.6 % (35.0-51.0); LYMPH # 2.7 K/uL (1.0-4.3); LYMPH % 19.9 % (20.0-40.0); MEAN CELL VOLUME 87.6 fL (80.0-94.0); MEAN CORPUSCULAR HEMOGLOBIN 28.3 pg (27.0-31.0); MEAN CORPUSCULAR HGB CONC 32.3 g/dL (33.0-37.0); MEAN PLATELET VOLUME 8.7 fL (7.2-11.7); MONO # 1.4 K/uL (0.0-0.8); MONO % 10.6 % (0.0-10.0); RED CELL DISTRIBUTION WIDTH 17.1 % (11.5-14.5); WHITE BLOOD COUNT 13.4 K/uL (4.8-10.8)
[2017-04-22 08:45] LABS: CHLORIDE 104 mmol/L (98-107); POTASSIUM 3.9 mmol/L (3.6-5.2); SODIUM 137 mmol/L (132-148)
[2017-04-22 08:47] LABS: GFR AFRICAN-AMERICAN > 60
[2017-04-22 08:48] LABS: ALKALINE PHOSPHATASE 49 U/L (38-126); ALT/SGPT 21 U/L (21-72); AST/SGOT 20 U/L (17-59); BILIRUBIN,TOTAL 0.6 mg/dL (0.2-1.3); BLOOD UREA NITROGEN 31 mg/dL (9-20); CARBON DIOXIDE 26 mmol/L (22-30); GLUCOSE,RANDOM 70 mg/dL (75-110); PHOSPHOROUS 3.8 mg/dL (2.5-4.5)
[2017-04-22 08:49] LABS: CALCIUM 8.9 mg/dl (8.6-10.4); MAGNESIUM 1.7 mg/dL (1.6-2.3)
[2017-04-22 08:55] LABS: ALB/GLOB RATIO 1.1 (1.0-2.1)
[2017-04-22] MEDS: (Lantus) Insulin Glargine, Recombinant SC SCH ×2 (10:06→18:24)
[2017-04-22] MEDS: Betamethasone Valerate 0.1% Lotion (60 ml) TOP SCH ×2 (10:07→18:38)
[2017-04-22] MEDS: (Novolin R) Insulin Human Regular 100 units/ml vial SC SCH ×5 (10:07→22:53)
[2017-04-22] MEDS: Ammonium Lactate 12% Lotion (225 g) EXT SCH ×2 (10:07→18:37)
[2017-04-22] MEDS: Saccharomyces Boulardi 250 mg Cap PO SCH ×2 (10:35→18:38)
--- NOTE | 2017-04-22 11:16 | CP.PCM.PN ---
Subjective - Date & Time of Evaluation Date of Evaluation: 04/22/17 Time of Evaluation: 10:00 - Subjective Subjective: dictated Objective - Vital Signs/Intake and Output Vital Signs (last 24 hours): Temp Pulse Resp BP Pulse Ox 98.1 F 83 20 123/66 97 04/22/17 08:00 04/22/17 08:00 04/22/17 08:00 04/22/17 08:00 04/22/17 08:00 Intake and Output: 04/22/17 04/22/17 06:59 18:59 Intake Total 800 Balance 800 - Medications Medications: Current Medications Albuterol/Ipratropium (Duoneb 3 Mg/0.5 Mg (3 Ml) Ud) 3 ml INH RQ4 [facility] Last Admin: 04/22/17 07:45 Dose: 3 ml Amlodipine Besylate (Norvasc) 5 mg PO DAILY [facility] Last Admin: 04/22/17 10:06 Dose: 5 mg Betamethasone Valerate (Betamethasone Valerate 0.1%) 0 ml TOP BID [facility] Last Admin: 04/22/17 10:07 Dose: 1 ml Ergocalciferol (Drisdol 50,000 Intl Units Cap) 1 cap PO Q7D [facility] Stop: 05/24/17 10:16 Famotidine (Pepcid) 20 mg PO BID [facility] Last Admin: 04/22/17 10:35 Dose: 20 mg Glipizide (Glucotrol) 5 mg PO ACB [facility] Last Admin: 04/19/17 08:57 Dose: Not Given Guaifenesin/Dextromethorphan (Robitussin Dm) 10 ml PO Q4H PRN PRN Reason: Cough and congestion Last Admin: 04/15/17 10:16 Dose: 10 ml Imipenem/Cilastatin Sodium 500 (mg/ Sodium Chloride) 100 mls @ 100 mls/hr IVPB Q6 [facility] Last Admin: 04/22/17 05:00 Dose: 100 mls/hr Ibuprofen (Motrin Tab) 600 mg PO TID PRN PRN Reason: Pain, moderate (4-7) Last Admin: 04/21/17 01:58 Dose: 600 mg Insulin Glargine (Lantus) 10 unit SC BID [facility] Last Admin: 04/22/17 10:06 Dose: 10 units Insulin Human Regular (Novolin R) 0 unit SC ACHS [facility] PRN Reason: Protocol Last Admin: 04/22/17 10:07 Dose: Not Given Lactic Acid (Lac-Hydrin 12% Lotion (225 G)) 0 gm EXT BID [facility] Last Admin: 04/22/17 10:07 Dose: 1 applic Losartan Potassium (Cozaar) 25 mg PO DAILY [facility] Last Admin: 04/22/17 10:07 Dose: 25 mg Metformin HCl (Glucophage) 500 mg PO BID [facility] Last Admin: 04/22/17 10:07 Dose: 500 mg Ondansetron HCl (Zofran Inj) 4 mg IVP Q6H PRN PRN Reason: Nausea/Vomiting Prednisone (Prednisone Tab) 30 mg PO DAILY [facility] Last Admin: 04/22/17 10:06 Dose: 30 mg Roflumilast (Daliresp) 500 mcg PO DAILY [facility] Last Admin: 04/22/17 10:35 Dose: 500 mcg Saccharomyces Boulardii (Florastor) 250 mg PO BID [facility] Last Admin: 04/22/17 10:35 Dose: 250 mg Fluticasone/Salmeterol (Advair Diskus 500/50) 1 puff INH RQ12 [facility] Last Admin: 04/22/17 07:45 Dose: 1 puff Tiotropium [place] (Spiriva) 18 mcg INH RQ24 [facility] Last Admin: 04/22/17 07:46 Dose: 18 mcg - Labs Labs: 04/22/17 08:17 04/22/17 08:17 PT 13.3 SECONDS (9.7-12.2) H 04/04/17 18:46 INR 1.2 04/04/17 18:46 APTT 40 SECONDS (21-34) H 04/04/17 18:46
--- NOTE | 2017-04-22 12:06 | PN ---
DATE: 04/22/2017 The patient is feeling a little better. However, he is still bringing sputum with blood. He is in i solation. AFBs have been ordered. Clinically, he does look a little better. His x-ray was done, wh ich is still reported as having infiltrates. I reviewed the report. VITAL SIGNS: T-max is 98.1, pulse 83. Blood pressure is 123/66. Respirations are 20. He was told to give sputum again. He said he gave one today. So we are waiting for the AFB. Final sputum culture came out negative. There was an AFB done yesterday, which is negative, and so I need 2 more, and he did have TB before ____. We will order a Gold. I had ordered a Gold QuantiFERON test I think. ____ we will do it for the completion sake. I am waiting for the AFBs. If the AFBs are n egative, he has received antibiotic. E. coli resistant organism will be done in 2 days, and if AFBs are negative, he could be discharged. If it is positive, then we will think of treating him for TB. Plan is discussed. We will also have a Gold QuantiFERON test done for the completion sake. Jaylen Stewart MD cc: [id number] TT: 04/22/2017 12:05:42 Confirmation # [id number] Dictation # [id number]
[2017-04-22] MEDS: Pantoprazole 40 mg EC Tab PO SCH (12:40)
[2017-04-23] MEDS: Albuterol-Ipratrop 3 mg / 0.5 (3 ml) UD INH SCH ×7 (03:59→23:51)
[2017-04-23] MEDS: Fluticasone-Salmeterol 500-50mcg Diskus INH SCH ×2 (07:19→19:57)
[2017-04-23] MEDS: Tiotropium 18 mcg Cap For Inhalation INH SCH (07:19)
[2017-04-23] MEDS: (Novolin R) Insulin Human Regular 100 units/ml vial SC SCH ×4 (07:58→21:36)
[2017-04-23 07:59] LABS: BASO # 0.1 K/uL (0.0-0.2); BASO % 0.5 % (0.0-2.0); EOS # 0.1 K/uL (0.0-0.7); EOS % 0.6 % (0.0-4.0); LYMPH # 2.5 K/uL (1.0-4.3); LYMPH % 21.5 % (20.0-40.0); MEAN CELL VOLUME 86.9 fL (80.0-94.0); MEAN CORPUSCULAR HEMOGLOBIN 28.2 pg (27.0-31.0); MEAN CORPUSCULAR HGB CONC 32.5 g/dL (33.0-37.0); MEAN PLATELET VOLUME 8.5 fL (7.2-11.7); MONO # 1.1 K/uL (0.0-0.8); MONO % 9.3 % (0.0-10.0); RED CELL DISTRIBUTION WIDTH 16.7 % (11.5-14.5); WHITE BLOOD COUNT 11.8 K/uL (4.8-10.8)
[2017-04-23 08:14] LABS: CHLORIDE 102 mmol/L (98-107); SODIUM 136 mmol/L (132-148)
[2017-04-23 08:16] LABS: GFR AFRICAN-AMERICAN > 60
[2017-04-23 08:17] LABS: ALB/GLOB RATIO 1.2 (1.0-2.1); ALKALINE PHOSPHATASE 53 U/L (38-126); ALT/SGPT 20 U/L (21-72); AST/SGOT 18 U/L (17-59); BILIRUBIN,TOTAL 0.9 mg/dL (0.2-1.3); BLOOD UREA NITROGEN 30 mg/dL (9-20); CARBON DIOXIDE 23 mmol/L (22-30); GLUCOSE,RANDOM 84 mg/dL (75-110); PHOSPHOROUS 3.1 mg/dL (2.5-4.5); TOTAL PROTEIN 6.4 g/dL (6.3-8.3)
[2017-04-23 08:18] LABS: CALCIUM 8.9 mg/dl (8.6-10.4); MAGNESIUM 1.7 mg/dL (1.6-2.3)
[2017-04-23] MEDS: Pantoprazole 40 mg EC Tab PO SCH (11:08)
[2017-04-23] MEDS: Saccharomyces Boulardi 250 mg Cap PO SCH ×2 (11:08→17:28)
[2017-04-23] MEDS: (Lantus) Insulin Glargine, Recombinant SC SCH ×2 (11:09→17:28)
[2017-04-23] MEDS: Betamethasone Valerate 0.1% Lotion (60 ml) TOP SCH ×2 (11:10→17:30)
[2017-04-23] MEDS: Ammonium Lactate 12% Lotion (225 g) EXT SCH ×2 (11:10→17:29)
--- NOTE | 2017-04-23 14:05 | CP.PCM.PN ---
<Alba Toribio - Last Filed: 04/23/17 22:01> Subjective - Date & Time of Evaluation Date of Evaluation: 04/23/17 Time of Evaluation: 14:05 - Subjective Subjective: Medicine Progress Note- Dr. Elise Service: Patient was seen and examined at beside in no acute distress. Patient reports his breathing has improved, but is still coughing up yellow-brown phlegm. He states his right arm is still painful in the location of his hematoma but has mild improvement. Patient had bowel movement yesterday. Patient denies chest pain, palpitations, nausea, vomiting, dizziness, diarrhea, fever, and chills. Objective - Vital Signs/Intake and Output Vital Signs (last 24 hours): Temp Pulse Resp BP Pulse Ox 97.6 F 80 20 152/75 H 96 04/23/17 08:21 04/23/17 11:06 04/23/17 08:21 04/23/17 11:06 04/23/17 08:21 - Medications Medications: Current Medications Albuterol/Ipratropium (Duoneb 3 Mg/0.5 Mg (3 Ml) Ud) 3 ml INH RQ4 [facility] Last Admin: 04/23/17 11:07 Dose: 3 ml Amlodipine Besylate (Norvasc) 5 mg PO DAILY [facility] Last Admin: 04/23/17 11:09 Dose: 5 mg Betamethasone Valerate (Betamethasone Valerate 0.1%) 0 ml TOP BID [facility] Last Admin: 04/23/17 11:10 Dose: 60 ml Ergocalciferol (Drisdol 50,000 Intl Units Cap) 1 cap PO Q7D [facility] Stop: 05/24/17 10:16 Glipizide (Glucotrol) 5 mg PO ACB [facility] Last Admin: 04/19/17 08:57 Dose: Not Given Guaifenesin/Dextromethorphan (Robitussin Dm) 10 ml PO Q4H PRN PRN Reason: Cough and congestion Last Admin: 04/15/17 10:16 Dose: 10 ml Imipenem/Cilastatin Sodium 500 (mg/ Sodium Chloride) 100 mls @ 100 mls/hr IVPB Q6 [facility] Last Admin: 04/23/17 13:15 Dose: 100 mls/hr Ibuprofen (Motrin Tab) 600 mg PO TID PRN PRN Reason: Pain, moderate (4-7) Insulin Glargine (Lantus) 10 unit SC BID [facility] Last Admin: 04/23/17 11:09 Dose: 10 units Insulin Human Regular (Novolin R) 0 unit SC ACHS [facility] PRN Reason: Protocol Last Admin: 04/23/17 12:34 Dose: Not Given Lactic Acid (Lac-Hydrin 12% Lotion (225 G)) 0 gm EXT BID [facility] Last Admin: 04/23/17 11:10 Dose: 1 applic Losartan Potassium (Cozaar) 25 mg PO DAILY [facility] Last Admin: 04/23/17 11:08 Dose: 25 mg Metformin HCl (Glucophage) 500 mg PO BID [facility] Last Admin: 04/23/17 11:08 Dose: 500 mg Ondansetron HCl (Zofran Inj) 4 mg IVP Q6H PRN PRN Reason: Nausea/Vomiting Pantoprazole Sodium (Protonix Ec Tab) 40 mg PO DAILY [facility] Last Admin: 04/23/17 11:08 Dose: 40 mg Prednisone (Prednisone Tab) 30 mg PO DAILY [facility] Last Admin: 04/23/17 11:08 Dose: 30 mg Roflumilast (Daliresp) 500 mcg PO DAILY [facility] Last Admin: 04/23/17 11:08 Dose: 500 mcg Saccharomyces Boulardii (Florastor) 250 mg PO BID [facility] Last Admin: 04/23/17 11:08 Dose: 250 mg Fluticasone/Salmeterol (Advair Diskus 500/50) 1 puff INH RQ12 [facility] Last Admin: 04/23/17 07:19 Dose: 1 puff Tiotropium [place] (Spiriva) 18 mcg INH RQ24 [facility] Last Admin: 04/23/17 07:19 Dose: 18 mcg - Labs Labs: 04/23/17 07:50 04/23/17 07:50 PT 13.3 SECONDS (9.7-12.2) H 04/04/17 18:46 INR 1.2 04/04/17 18:46 APTT 40 SECONDS (21-34) H 04/04/17 18:46 - Constitutional Appears: Well, No Acute Distress - Head Exam Head Exam: NORMAL INSPECTION, NORMOCEPHALIC - Eye Exam Eye Exam: EOMI, Normal appearance - ENT Exam ENT Exam: Mucous Membranes Moist - Neck Exam Neck Exam: Full ROM, Normal Inspection - Respiratory Exam Respiratory Exam: Decreased Breath Sounds, Rhonchi, Wheezes, NORMAL BREATHING PATTERN - Cardiovascular Exam Cardiovascular Exam: REGULAR RHYTHM, +S1, +S2 - GI/Abdominal Exam GI & Abdominal Exam: Soft, Normal Bowel Sounds. absent: Distended, Tenderness Additional comments: with palpation in all quadrants - Extremities Exam Extremities Exam: Normal Inspection. absent: Calf Tenderness, Pedal Edema, Tenderness - Neurological Exam Neurological Exam: Alert, Awake, Oriented x3 - Psychiatric Exam Psychiatric exam: Normal Affect, Normal Mood - Skin Skin Exam: Dry, Intact, Normal Color, Warm Additional comments: Hematoma on right upper extremity Psoriatic lesions on abdomen Assessment and Plan (1) COPD exacerbation Assessment & Plan: Infectious disease consult placed- Dr. Stewart, help appreciated As per Dr. Stewart, discontinue Imipenem/Cilastin on day 14. Patient has previous history of TB. AFB results pending. Gold QuantiFERON ordered 04/22/[address] Stewart- results pending Sputum culture: normal oral leah Wheezing and Rhonchi have mildly improved Increased Prednisone to 30mg PO Daily (on 04/21) Continue Albuterol 3ml INH RQ4 [facility] Continue Guaifenesin/Dextromethorphan 10ml PO Q4H PRN Continue Spiriva 18mcg INH RQ24 [facility] Continue Advair Diskus 500/50 1 puff INH RQ12 [facility] Repeat chest xray 04/21: suggestive of infiltrate or atelectasis at left lung base, blunting of left costophrenic angle which may represnt pleural thickening or trace effusion. venous congestion and/or interstitial airspace opacities; Biapical pleural thickening with upper lobe granulomatous changes EKG on 04/22/17- sinus rhythm Status: Acute (2) Dysuria Assessment & Plan: UA: negative urine culture - negative Urinalysis: yeast Urine Culture negative (04/09/17) Status: Resolved (3) Diarrhea Assessment & Plan: c. diff negative no diarrhea reported Status: Resolved (4) Diabetes mellitus Assessment & Plan: Hemoglobin A1c 6.7 (04/05/17) Glipizide 5mg PO ACB [facility] Lantus 10 units SC BID Novolin R ISS Metformin 500 mg PO BID [facility] Monitor Status: Acute (5) Hypertension Assessment & Plan: Continue Cozaar 25mg PO daily Continue Amlodipine 5mg PO Daily Monitor Status: Chronic (6) Hx pulmonary embolism Assessment & Plan: IVC filter in place O2 prn via NC no anticoagulation due to hx of retroperitoneal bleed. Status: Resolved (7) Hematoma Assessment & Plan: On Right upper extremity. Doppler results: negative Possible Phlebitis: warm compress and Motrin 600mg PO TID PRN Status: Acute (8) Annular psoriasis Assessment & Plan: Improved with scaly plaques Continue LacHydrin 12% to affected scaly areas BID Continue Betamethasone Valerate 0.1% to affected pruritic areas BID for two weeks (started on 04/18/17). Will stop Betamethasone after this week and try pulse therapy. Nursing communication order for topical lotion to set at bedside for other affected areas. Status: Acute (9) Vitamin D deficiency Assessment & Plan: Vitamin D below 12 on admission Continue Ergocalciferol 50,000 weekly Status: Acute (10) Prophylactic measure Assessment & Plan: Held chemical anticoagulation due to hx of retroperitoneal bleed SCDs Discontinue Pepcid 20mg PO Start Protonix 40mg PO Daily (04/22/17) Status: Acute <Jerry Elise M - Last Filed: 04/24/17 07:57> Objective - Vital Signs/Intake and Output Vital Signs (last 24 hours): Temp Pulse Resp BP Pulse Ox 97.3 F L 76 20 116/56 L 96 04/23/17 23:15 04/23/17 23:15 04/23/17 23:15 04/23/17 23:15 04/23/17 23:15 Intake and Output: 04/24/17 04/24/17 06:59 18:59 Intake Total 700 Balance 700 - Medications Medications: Current Medications Albuterol/Ipratropium (Duoneb 3 Mg/0.5 Mg (3 Ml) Ud) 3 ml INH RQ4 [facility] Last Admin: 04/24/17 07:32 Dose: 3 ml Amlodipine Besylate (Norvasc) 5 mg PO DAILY [facility] Last Admin: 04/23/17 11:09 Dose: 5 mg Betamethasone Valerate (Betamethasone Valerate 0.1%) 0 ml TOP BID [facility] Last Admin: 04/23/17 17:30 Dose: 60 ml Ergocalciferol (Drisdol 50,000 Intl Units Cap) 1 cap PO Q7D [facility] Stop: 05/24/17 10:16 Glipizide (Glucotrol) 5 mg PO ACB [facility] Last Admin: 04/19/17 08:57 Dose: Not Given Guaifenesin/Dextromethorphan (Robitussin Dm) 10 ml PO Q4H PRN PRN Reason: Cough and congestion Last Admin: 04/15/17 10:16 Dose: 10 ml Imipenem/Cilastatin Sodium 500 (mg/ Sodium Chloride) 100 mls @ 100 mls/hr IVPB Q6 [facility] Last Admin: 04/24/17 05:09 Dose: 100 mls/hr Ibuprofen (Motrin Tab) 600 mg PO TID PRN PRN Reason: Pain, moderate (4-7) Insulin Glargine (Lantus) 10 unit SC BID [facility] Last Admin: 04/23/17 17:28 Dose: 10 units Insulin Human Regular (Novolin R) 0 unit SC ACHS [facility] PRN Reason: Protocol Last Admin: 04/23/17 21:36 Dose: Not Given Lactic Acid (Lac-Hydrin 12% Lotion (225 G)) 0 gm EXT BID [facility] Last Admin: 04/23/17 17:29 Dose: 1 applic Losartan Potassium (Cozaar) 25 mg PO DAILY [facility] Last Admin: 04/23/17 11:08 Dose: 25 mg Metformin HCl (Glucophage) 500 mg PO BID [facility] Last Admin: 04/23/17 20:25 Dose: 500 mg Ondansetron HCl (Zofran Inj) 4 mg IVP Q6H PRN PRN Reason: Nausea/Vomiting Pantoprazole Sodium (Protonix Ec Tab) 40 mg PO DAILY [facility] Last Admin: 04/23/17 11:08 Dose: 40 mg Prednisone (Prednisone Tab) 30 mg PO DAILY [facility] Last Admin: 04/23/17 11:08 Dose: 30 mg Roflumilast (Daliresp) 500 mcg PO DAILY [facility] Last Admin: 04/23/17 11:08 Dose: 500 mcg Saccharomyces Boulardii (Florastor) 250 mg PO BID [facility] Last Admin: 04/23/17 17:28 Dose: 250 mg Fluticasone/Salmeterol (Advair Diskus 500/50) 1 puff INH RQ12 [facility] Last Admin: 04/24/17 07:32 Dose: 1 puff Tiotropium [place] (Spiriva) 18 mcg INH RQ24 [facility] Last Admin: 04/24/17 07:32 Dose: 18 mcg - Labs Labs: 04/23/17 07:50 04/23/17 07:50 PT 13.3 SECONDS (9.7-12.2) H 04/04/17 18:46 INR 1.2 04/04/17 18:46 APTT 40 SECONDS (21-34) H 04/04/17 18:46 Attending/Attestation - Attestation I have personally seen and examined this patient.: Yes I have fully participated in the care of the patient.: Yes I have reviewed all pertinent clinical information, including history, physical exam and plan: Yes Notes (Text): 04/24/17 07:56 Patient was seen and examined at bedside Patient status feeling slightly better and he is able to ambulate. We will continue IV antibiotics for ESBL in the sputum We are awaiting the final results of AFB smears Discharge planning if the AFB smears negative I discussed the plan of care with the resident and agree with the above history and physical and assessment/plan.
--- NOTE | 2017-04-23 16:30 | VASCLAB ---
PROCEDURE: Right Upper Extremity Venous Duplex Exam HISTORY: r/o DVT or clot of UE PRIORS: None. TECHNIQUE: Right upper extremity, internal jugular, subclavian, axillary, brachial, ulnar, radial, basilic and upper cephalic veins were evaluated. Flow was assessed with color Doppler, compressibility, assessment of phasic flow and augmentation response. Report prepared by [place], CHAU, RVT FINDINGS: RIGHT: 1. Internal Jugular: 1.1. Compressibility - Fully compressible: Thrombus - None : Flow - Phasic: Augmentation -Normal: Reflux - None. 2. Subclavian: 2.1. Compressibility - Fully compressible: Thrombus - None : Flow - Phasic: Augmentation -Normal: Reflux - None. 3. Axillary: 3.1. Compressibility - Fully compressible: Thrombus - None : Flow - Phasic: Augmentation -Normal: Reflux - None. 4. Brachial: 4.1. Compressibility - Fully compressible: Thrombus - None: Flow - Phasic: Augmentation -Normal: Reflux - None. 5. Ulnar: 5.1. Compressibility - Fully compressible: Thrombus - None: Flow - Phasic: Augmentation -Normal: Reflux - None. 6. Radial: 6.1. Compressibility - Fully compressible: Thrombus - None: Flow - Phasic: Augmentation - Normal: Reflux - None. 7. Cephalic: 7.1. Compressibility - Fully compressible: Thrombus - None: Flow - Phasic: Augmentation -Normal: Reflux - None. 8. Basilic: 8.1. Compressibility - Fully compressible: Thrombus - None: Flow - Phasic: Augmentation -Normal: Reflux - None. OTHER FINDINGS: Right: Anechoic non vascularlized mass noted on the right upper arm. IMPRESSION: Right: No evidence of vein thrombosis of the right upper extremity with excellent venous flow. Normal valve function noted of the right side. Normal venous flow noted in the left internal jugular and left subclavian veins.
[2017-04-24] MEDS: Albuterol-Ipratrop 3 mg / 0.5 (3 ml) UD INH SCH ×6 (03:11→23:58)
[2017-04-24] MEDS: (Novolin R) Insulin Human Regular 100 units/ml vial SC SCH ×4 (07:30→22:00)
[2017-04-24] MEDS: Fluticasone-Salmeterol 500-50mcg Diskus INH SCH ×2 (07:32→19:39)
[2017-04-24] MEDS: Tiotropium 18 mcg Cap For Inhalation INH SCH (07:32)
[2017-04-24 08:57] LABS: BASO % 0.3 % (0.0-2.0); EOS # 0.1 K/uL (0.0-0.7); EOS % 0.7 % (0.0-4.0); LYMPH # 2.5 K/uL (1.0-4.3); LYMPH % 25.9 % (20.0-40.0); MEAN CELL VOLUME 86.6 fL (80.0-94.0); MEAN CORPUSCULAR HEMOGLOBIN 28.3 pg (27.0-31.0); MEAN CORPUSCULAR HGB CONC 32.7 g/dL (33.0-37.0); MEAN PLATELET VOLUME 8.5 fL (7.2-11.7); MONO % 10.5 % (0.0-10.0); RED CELL DISTRIBUTION WIDTH 16.5 % (11.5-14.5); WHITE BLOOD COUNT 9.6 K/uL (4.8-10.8)
[2017-04-24 09:08] LABS: CHLORIDE 101 mmol/L (98-107); POTASSIUM 4.2 mmol/L (3.6-5.2); SODIUM 135 mmol/L (132-148)
[2017-04-24 09:10] LABS: AST/SGOT 20 U/L (17-59); BILIRUBIN,TOTAL 0.9 mg/dL (0.2-1.3); CARBON DIOXIDE 26 mmol/L (22-30); GFR AFRICAN-AMERICAN > 60
[2017-04-24 09:11] LABS: ALB/GLOB RATIO 1.3 (1.0-2.1); ALKALINE PHOSPHATASE 49 U/L (38-126); ALT/SGPT 21 U/L (21-72); BLOOD UREA NITROGEN 30 mg/dL (9-20); CALCIUM 8.7 mg/dl (8.6-10.4); GLUCOSE,RANDOM 62 mg/dL (75-110); MAGNESIUM 1.7 mg/dL (1.6-2.3); PHOSPHOROUS 3.2 mg/dL (2.5-4.5); TOTAL PROTEIN 6.3 g/dL (6.3-8.3)
--- NOTE | 2017-04-24 09:20 | CP.PCM.PN ---
<Alba Toribio - Last Filed: 04/24/17 13:09> Subjective - Date & Time of Evaluation Date of Evaluation: 04/24/17 Time of Evaluation: 09:20 - Subjective Subjective: Medicine Progress Note- Dr. Elise Service Patient seen and examined at [facility] in no acute distress. Patient reports his breathing is better today, but still coughing up sputum. He reports chest pain and abdominal pain exacerbated when coughing. Patient states he has diarrhea that began this morning and he has had it multiple times this morning. Patient denies palpitations, nausea, vomiting, fever, chills, edema, and leg pain. Objective - Vital Signs/Intake and Output Vital Signs (last 24 hours): Temp Pulse Resp BP Pulse Ox 98.1 F 83 20 116/61 97 04/24/17 08:31 04/24/17 08:31 04/24/17 08:31 04/24/17 08:31 04/24/17 08:31 Intake and Output: 04/24/17 04/24/17 06:59 18:59 Intake Total 700 Balance 700 - Medications Medications: Current Medications Albuterol/Ipratropium (Duoneb 3 Mg/0.5 Mg (3 Ml) Ud) 3 ml INH RQ4 [facility] Last Admin: 04/24/17 07:32 Dose: 3 ml Amlodipine Besylate (Norvasc) 5 mg PO DAILY [facility] Last Admin: 04/23/17 11:09 Dose: 5 mg Betamethasone Valerate (Betamethasone Valerate 0.1%) 0 ml TOP BID [facility] Last Admin: 04/23/17 17:30 Dose: 60 ml Ergocalciferol (Drisdol 50,000 Intl Units Cap) 1 cap PO Q7D [facility] Stop: 05/24/17 10:16 Glipizide (Glucotrol) 5 mg PO ACB [facility] Last Admin: 04/19/17 08:57 Dose: Not Given Guaifenesin/Dextromethorphan (Robitussin Dm) 10 ml PO Q4H PRN PRN Reason: Cough and congestion Last Admin: 04/15/17 10:16 Dose: 10 ml Imipenem/Cilastatin Sodium 500 (mg/ Sodium Chloride) 100 mls @ 100 mls/hr IVPB Q6 [facility] Last Admin: 04/24/17 05:09 Dose: 100 mls/hr Ibuprofen (Motrin Tab) 600 mg PO TID PRN PRN Reason: Pain, moderate (4-7) Insulin Glargine (Lantus) 10 unit SC BID [facility] Last Admin: 04/23/17 17:28 Dose: 10 units Insulin Human Regular (Novolin R) 0 unit SC ACHS [facility] PRN Reason: Protocol Last Admin: 04/23/17 21:36 Dose: Not Given Lactic Acid (Lac-Hydrin 12% Lotion (225 G)) 0 gm EXT BID [facility] Last Admin: 04/23/17 17:29 Dose: 1 applic Losartan Potassium (Cozaar) 25 mg PO DAILY [facility] Last Admin: 04/23/17 11:08 Dose: 25 mg Metformin HCl (Glucophage) 500 mg PO BID [facility] Last Admin: 04/23/17 20:25 Dose: 500 mg Ondansetron HCl (Zofran Inj) 4 mg IVP Q6H PRN PRN Reason: Nausea/Vomiting Pantoprazole Sodium (Protonix Ec Tab) 40 mg PO DAILY [facility] Last Admin: 04/23/17 11:08 Dose: 40 mg Prednisone (Prednisone Tab) 30 mg PO DAILY [facility] Last Admin: 04/23/17 11:08 Dose: 30 mg Roflumilast (Daliresp) 500 mcg PO DAILY [facility] Last Admin: 04/23/17 11:08 Dose: 500 mcg Saccharomyces Boulardii (Florastor) 250 mg PO BID [facility] Last Admin: 04/23/17 17:28 Dose: 250 mg Fluticasone/Salmeterol (Advair Diskus 500/50) 1 puff INH RQ12 [facility] Last Admin: 04/24/17 07:32 Dose: 1 puff Tiotropium [place] (Spiriva) 18 mcg INH RQ24 [facility] Last Admin: 04/24/17 07:32 Dose: 18 mcg - Labs Labs: 04/24/17 08:45 04/24/17 08:45 PT 13.3 SECONDS (9.7-12.2) H 04/04/17 18:46 INR 1.2 04/04/17 18:46 APTT 40 SECONDS (21-34) H 04/04/17 18:46 - Constitutional Appears: Non-toxic, No Acute Distress - Head Exam Head Exam: NORMAL INSPECTION, NORMOCEPHALIC - Eye Exam Eye Exam: EOMI, Normal appearance - ENT Exam ENT Exam: Mucous Membranes Moist - Respiratory Exam Respiratory Exam: Rhonchi, Wheezes, NORMAL BREATHING PATTERN. absent: Accessory Muscle Use, Clear to Ausculation Bilateral (improving) - Cardiovascular Exam Cardiovascular Exam: REGULAR RHYTHM, +S1, +S2 - GI/Abdominal Exam GI & Abdominal Exam: Soft, Tenderness (with palpation), Normal Bowel Sounds - Extremities Exam Extremities Exam: Full ROM. absent: Calf Tenderness, Pedal Edema, Tenderness - Neurological Exam Neurological Exam: Alert, Awake, Oriented x3 - Psychiatric Exam Psychiatric exam: Normal Affect, Normal Mood - Skin Skin Exam: Dry, Intact, Normal Color, Warm Additional comments: Hematoma on right upper extremity Psoriatic lesions on abdomen Assessment and Plan (1) COPD exacerbation Assessment & Plan: Infectious disease consult placed- Dr. Stewart, help appreciated As per Dr. Stewart, discontinue Imipenem/Cilastin on day 14. Patient has previous history of TB. AFB results pending (AFBx2 negative). Gold QuantiFERON ordered 04/22/[address] Stewart-negative Sputum culture: normal oral leah Wheezing and Rhonchi have mildly improved Increased Prednisone to 30mg PO Daily (on 04/21) Continue Albuterol 3ml INH RQ4 [facility] Continue Guaifenesin/Dextromethorphan 10ml PO Q4H PRN Continue Spiriva 18mcg INH RQ24 [facility] Continue Advair Diskus 500/50 1 puff INH RQ12 [facility] Repeat chest xray 04/21: suggestive of infiltrate or atelectasis at left lung base, blunting of left costophrenic angle which may represnt pleural thickening or trace effusion. venous congestion and/or interstitial airspace opacities; Biapical pleural thickening with upper lobe granulomatous changes EKG on 04/22/17- sinus rhythm Status: Acute (2) Dysuria Assessment & Plan: UA: negative urine culture - negative Urinalysis: yeast Urine Culture negative (04/09/17) Status: Resolved (3) Diarrhea Assessment & Plan: Diarrhea reported C. Diff ordered 04/24/17- results pending Status: Acute (4) Diabetes mellitus Assessment & Plan: Hemoglobin A1c 6.7 (04/05/17) Glipizide 5mg PO ACB [facility] Lantus 10 units SC BID Novolin R ISS Metformin 500 mg PO BID [facility] Monitor Status: Acute (5) Hypertension Assessment & Plan: Continue Cozaar 25mg PO daily Continue Amlodipine 5mg PO Daily Monitor Status: Chronic (6) Hx pulmonary embolism Assessment & Plan: IVC filter in place O2 prn via NC no anticoagulation due to hx of retroperitoneal bleed. Status: Resolved (7) Hematoma Assessment & Plan: On Right upper extremity. Doppler results: negative Possible Phlebitis: warm compress and Motrin 600mg PO TID PRN Status: Acute (8) Annular psoriasis Assessment & Plan: Improved with scaly plaques Continue LacHydrin 12% to affected scaly areas BID Continue Betamethasone Valerate 0.1% to affected pruritic areas BID for two weeks (started on 04/18/17). Will stop Betamethasone after this week and try pulse therapy. Nursing communication order for topical lotion to set at bedside for other affected areas. Status: Acute (9) Vitamin D deficiency Assessment & Plan: Vitamin D below 12 on admission Continue Ergocalciferol 50,000 weekly Status: Acute (10) Prophylactic measure Assessment & Plan: Held chemical anticoagulation due to hx of retroperitoneal bleed SCDs Discontinue Pepcid 20mg PO Start Protonix 40mg PO Daily (04/22/17) Status: Acute <Jerry Elise M - Last Filed: 04/24/17 17:05> Objective - Vital Signs/Intake and Output Vital Signs (last 24 hours): Temp Pulse Resp BP Pulse Ox 98.1 F 73 20 120/65 95 04/24/17 15:00 04/24/17 15:00 04/24/17 15:00 04/24/17 15:00 04/24/17 15:00 Intake and Output: 04/24/17 04/24/17 06:59 18:59 Intake Total 700 580 Balance 700 580 - Medications Medications: Current Medications Albuterol/Ipratropium (Duoneb 3 Mg/0.5 Mg (3 Ml) Ud) 3 ml INH RQ4 [facility] Last Admin: 04/24/17 15:53 Dose: 3 ml Amlodipine Besylate (Norvasc) 5 mg PO DAILY [facility] Last Admin: 04/24/17 10:54 Dose: 5 mg Betamethasone Valerate (Betamethasone Valerate 0.1%) 0 ml TOP BID [facility] Last Admin: 04/24/17 10:55 Dose: 1 ml Ergocalciferol (Drisdol 50,000 Intl Units Cap) 1 cap PO Q7D [facility] Stop: 05/24/17 10:16 Glipizide (Glucotrol) 5 mg PO ACB [facility] Last Admin: 04/19/17 08:57 Dose: Not Given Guaifenesin/Dextromethorphan (Robitussin Dm) 10 ml PO Q4H PRN PRN Reason: Cough and congestion Last Admin: 04/15/17 10:16 Dose: 10 ml Imipenem/Cilastatin Sodium 500 (mg/ Sodium Chloride) 100 mls @ 100 mls/hr IVPB Q6 [facility] Last Admin: 04/24/17 12:44 Dose: 100 mls/hr Sodium Chloride (Sodium Chloride 0.9%) 1,000 mls @ 100 mls/hr IV .Q10H [facility] Last Admin: 04/24/17 16:53 Dose: 100 mls/hr Ibuprofen (Motrin Tab) 600 mg PO TID PRN PRN Reason: Pain, moderate (4-7) Insulin Glargine (Lantus) 10 unit SC BID [facility] Last Admin: 04/24/17 12:00 Dose: 10 units Insulin Human Regular (Novolin R) 0 unit SC ACHS [facility] PRN Reason: Protocol Last Admin: 04/24/17 12:44 Dose: Not Given Lactic Acid (Lac-Hydrin 12% Lotion (225 G)) 0 gm EXT BID [facility] Last Admin: 04/24/17 10:54 Dose: 1 applic Losartan Potassium (Cozaar) 25 mg PO DAILY [facility] Last Admin: 04/24/17 10:54 Dose: 25 mg Metformin HCl (Glucophage) 500 mg PO BID [facility] Last Admin: 04/24/17 10:54 Dose: 500 mg Ondansetron HCl (Zofran Inj) 4 mg IVP Q6H PRN PRN Reason: Nausea/Vomiting Pantoprazole Sodium (Protonix Ec Tab) 40 mg PO DAILY [facility] Last Admin: 04/24/17 10:53 Dose: 40 mg Prednisone (Prednisone Tab) 30 mg PO DAILY [facility] Last Admin: 04/24/17 10:53 Dose: 30 mg Roflumilast (Daliresp) 500 mcg PO DAILY [facility] Last Admin: 04/24/17 10:54 Dose: 500 mcg Saccharomyces Boulardii (Florastor) 250 mg PO BID [facility] Last Admin: 04/24/17 10:53 Dose: 250 mg Fluticasone/Salmeterol (Advair Diskus 500/50) 1 puff INH RQ12 [facility] Last Admin: 04/24/17 07:32 Dose: 1 puff Tiotropium [place] (Spiriva) 18 mcg INH RQ24 [facility] Last Admin: 04/24/17 07:32 Dose: 18 mcg - Labs Labs: 04/24/17 08:45 04/24/17 08:45 PT 13.3 SECONDS (9.7-12.2) H 04/04/17 18:46 INR 1.2 04/04/17 18:46 APTT 40 SECONDS (21-34) H 04/04/17 18:46 Attending/Attestation - Attestation I have personally seen and examined this patient.: Yes I have fully participated in the care of the patient.: Yes I have reviewed all pertinent clinical information, including history, physical exam and plan: Yes Notes (Text): 04/24/17 17:04 Patient was seen and examined at bedside with the resident Patient still has cough but it is improving significantly We are awaiting results of for AFB smears We will continue current management Discharge planning when the AFB smear results are available. Discussed the plan of care with the resident and agree with the history and physical and assessment/plan by the resident.
[2017-04-24] MEDS: Saccharomyces Boulardi 250 mg Cap PO SCH ×2 (10:53→17:32)
[2017-04-24] MEDS: Pantoprazole 40 mg EC Tab PO SCH (10:53)
[2017-04-24] MEDS: Ammonium Lactate 12% Lotion (225 g) EXT SCH ×2 (10:54→18:00)
[2017-04-24] MEDS: Betamethasone Valerate 0.1% Lotion (60 ml) TOP SCH ×2 (10:55→17:31)
[2017-04-24] MEDS: (Lantus) Insulin Glargine, Recombinant SC SCH ×2 (12:00→17:32)
[2017-04-24] MEDS: Sodium Chloride 0.9% 1,000 ML IV SCH (16:53)
[2017-04-25] MEDS: Albuterol-Ipratrop 3 mg / 0.5 (3 ml) UD INH SCH ×5 (03:11→19:40)
[2017-04-25] MEDS: Sodium Chloride 0.9% 1,000 ML IV SCH ×2 (05:25→14:29)
[2017-04-25 07:14] LABS: BASO % 0.4 % (0.0-2.0); EOS # 0.1 K/uL (0.0-0.7); HEMATOCRIT 40.7 % (35.0-51.0); LYMPH # 2.4 K/uL (1.0-4.3); LYMPH % 23.5 % (20.0-40.0); MEAN CELL VOLUME 87.1 fL (80.0-94.0); MEAN CORPUSCULAR HEMOGLOBIN 28.4 pg (27.0-31.0); MEAN CORPUSCULAR HGB CONC 32.6 g/dL (33.0-37.0); MEAN PLATELET VOLUME 8.3 fL (7.2-11.7); MONO # 1.1 K/uL (0.0-0.8); MONO % 10.5 % (0.0-10.0); NRBC % 0.1 % (0.0-2.0); WHITE BLOOD COUNT 10.1 K/uL (4.8-10.8)
[2017-04-25 07:26] LABS: CHLORIDE 108 mmol/L (98-107); POTASSIUM 3.9 mmol/L (3.6-5.2); SODIUM 138 mmol/L (132-148)
[2017-04-25 07:28] LABS: BILIRUBIN,TOTAL 0.8 mg/dL (0.2-1.3); CARBON DIOXIDE 23 mmol/L (22-30); GFR AFRICAN-AMERICAN > 60
[2017-04-25 07:29] LABS: ALKALINE PHOSPHATASE 49 U/L (38-126); ALT/SGPT 17 U/L (21-72); AST/SGOT 17 U/L (17-59); BLOOD UREA NITROGEN 31 mg/dL (9-20); CALCIUM 8.7 mg/dl (8.6-10.4); GLUCOSE,RANDOM 104 mg/dL (75-110); MAGNESIUM 1.7 mg/dL (1.6-2.3); TOTAL PROTEIN 6.2 g/dL (6.3-8.3)
[2017-04-25] MEDS: (Novolin R) Insulin Human Regular 100 units/ml vial SC SCH ×4 (07:30→21:49)
[2017-04-25] MEDS: Tiotropium 18 mcg Cap For Inhalation INH SCH (07:39)
[2017-04-25] MEDS: Fluticasone-Salmeterol 500-50mcg Diskus INH SCH ×2 (07:39→19:40)
[2017-04-25 07:49] LABS: ALB/GLOB RATIO 1.1 (1.0-2.1)
[2017-04-25] MEDS: (Lantus) Insulin Glargine, Recombinant SC SCH (10:00)
[2017-04-25] MEDS: Pantoprazole 40 mg EC Tab PO SCH (12:20)
[2017-04-25] MEDS: Betamethasone Valerate 0.1% Lotion (60 ml) TOP SCH ×2 (12:24→17:44)
[2017-04-25] MEDS: Ammonium Lactate 12% Lotion (225 g) EXT SCH ×2 (12:24→17:45)
[2017-04-25] MEDS: Saccharomyces Boulardi 250 mg Cap PO SCH ×2 (12:27→17:44)
--- NOTE | 2017-04-25 20:25 | CP.PCM.PN ---
<Alba Toribio - Last Filed: 04/25/17 20:20> Subjective - Date & Time of Evaluation Date of Evaluation: 04/25/17 Time of Evaluation: 20:20 - Subjective Subjective: Medicine Progress Medicine- Dr. Elise Patient was seen and examined at bedside in no acute distress. Patient states his breathing has improved. He reports still having a cough with brown phlegm. Patient reports having chest and abdominal pain that worsens with coughing. He reports vomiting after dinner last night, but currently not nauseas. Patient had diarrhea 3 times yesterday and twice in the morning before examining him that are "watery and smelly" but denies blood in stool. Objective - Vital Signs/Intake and Output Vital Signs (last 24 hours): Temp Pulse Resp BP Pulse Ox 97.5 F L 89 20 143/67 96 04/25/17 15:00 04/25/17 15:00 04/25/17 15:00 04/25/17 15:00 04/25/17 15:00 Intake and Output: 04/25/17 04/26/17 18:59 06:59 Intake Total 580 Balance 580 - Medications Medications: Current Medications Albuterol/Ipratropium (Duoneb 3 Mg/0.5 Mg (3 Ml) Ud) 3 ml INH RQ4 [facility] Last Admin: 04/25/17 19:40 Dose: 3 ml Amlodipine Besylate (Norvasc) 5 mg PO DAILY [facility] Last Admin: 04/25/17 12:21 Dose: 5 mg Betamethasone Valerate (Betamethasone Valerate 0.1%) 0 ml TOP BID [facility] Last Admin: 04/25/17 17:44 Dose: 60 ml Ergocalciferol (Drisdol 50,000 Intl Units Cap) 1 cap PO Q7D [facility] Stop: 05/24/17 10:16 Glipizide (Glucotrol) 5 mg PO ACB [facility] Last Admin: 04/19/17 08:57 Dose: Not Given Guaifenesin/Dextromethorphan (Robitussin Dm) 10 ml PO Q4H PRN PRN Reason: Cough and congestion Last Admin: 04/15/17 10:16 Dose: 10 ml Sodium Chloride (Sodium Chloride 0.9%) 1,000 mls @ 100 mls/hr IV .Q10H [facility] Last Admin: 04/25/17 14:29 Dose: Not Given Ibuprofen (Motrin Tab) 600 mg PO TID PRN PRN Reason: Pain, moderate (4-7) Insulin Glargine (Lantus) 10 unit SC DAILY [facility] Insulin Human Regular (Novolin R) 0 unit SC ACHS [facility] PRN Reason: Protocol Last Admin: 04/25/17 17:36 Dose: Not Given Lactic Acid (Lac-Hydrin 12% Lotion (225 G)) 0 gm EXT BID [facility] Last Admin: 04/25/17 17:45 Dose: 1 applic Loperamide HCl (Imodium) 2 mg PO QID PRN PRN Reason: Diarrhea Last Admin: 04/25/17 17:44 Dose: 2 mg Losartan Potassium (Cozaar) 25 mg PO DAILY [facility] Last Admin: 04/25/17 12:21 Dose: 25 mg Metformin HCl (Glucophage) 500 mg PO BID [facility] Last Admin: 04/25/17 17:44 Dose: 500 mg Ondansetron HCl (Zofran Inj) 4 mg IVP Q6H PRN PRN Reason: Nausea/Vomiting Pantoprazole Sodium (Protonix Ec Tab) 40 mg PO DAILY [facility] Last Admin: 04/25/17 12:20 Dose: 40 mg Prednisone (Prednisone Tab) 30 mg PO DAILY [facility] Last Admin: 04/25/17 12:21 Dose: 30 mg Roflumilast (Daliresp) 500 mcg PO DAILY [facility] Last Admin: 04/25/17 12:21 Dose: 500 mcg Saccharomyces Boulardii (Florastor) 250 mg PO BID [facility] Last Admin: 04/25/17 17:44 Dose: 250 mg Fluticasone/Salmeterol (Advair Diskus 500/50) 1 puff INH RQ12 [facility] Last Admin: 04/25/17 19:40 Dose: 1 puff Tiotropium [place] (Spiriva) 18 mcg INH RQ24 [facility] Last Admin: 04/25/17 07:39 Dose: 18 mcg - Labs Labs: 04/25/17 07:08 04/25/17 07:08 PT 13.3 SECONDS (9.7-12.2) H 04/04/17 18:46 INR 1.2 04/04/17 18:46 APTT 40 SECONDS (21-34) H 04/04/17 18:46 - Constitutional Appears: No Acute Distress - Head Exam Head Exam: NORMAL INSPECTION, NORMOCEPHALIC - Eye Exam Eye Exam: EOMI, Normal appearance - ENT Exam ENT Exam: Mucous Membranes Moist - Neck Exam Neck Exam: Full ROM, Normal Inspection - Respiratory Exam Respiratory Exam: Decreased Breath Sounds, Rhonchi, Wheezes, NORMAL BREATHING PATTERN - Cardiovascular Exam Cardiovascular Exam: REGULAR RHYTHM, +S1, +S2 - GI/Abdominal Exam GI & Abdominal Exam: Soft, Tenderness, Hyperactive Bowel Sounds - Neurological Exam Neurological Exam: Alert, Awake, Normal Gait, Oriented x3 - Psychiatric Exam Psychiatric exam: Normal Affect, Normal Mood - Skin Skin Exam: Dry, Intact, Normal Color, Warm Assessment and Plan (1) COPD exacerbation Assessment & Plan: Infectious disease consult placed- Dr. Stewart, help appreciated As per Dr. Stewart, discontinue Imipenem/Cilastin on day 14. Patient has previous history of TB. AFB results- AFBx3 negative. Gold QuantiFERON ordered 04/22/[address] Stewart-negative Sputum culture: normal oral leah Wheezing and Rhonchi have mildly improved Increased Prednisone to 30mg PO Daily (on 04/21) Continue Albuterol 3ml INH RQ4 [facility] Continue Guaifenesin/Dextromethorphan 10ml PO Q4H PRN Continue Spiriva 18mcg INH RQ24 [facility] Continue Advair Diskus 500/50 1 puff INH RQ12 [facility] Repeat chest xray 04/21: suggestive of infiltrate or atelectasis at left lung base, blunting of left costophrenic angle which may represnt pleural thickening or trace effusion. venous congestion and/or interstitial airspace opacities; Biapical pleural thickening with upper lobe granulomatous changes EKG on 04/22/17- sinus rhythm Status: Acute (2) Dysuria Assessment & Plan: UA: negative urine culture - negative Urinalysis: yeast Urine Culture negative (04/09/17) Status: Resolved (3) Diarrhea Assessment & Plan: Diarrhea reported C. Diff ordered 04/24/17- negative Immodium 2mg PO QID PRN Status: Acute (4) Diabetes mellitus Assessment & Plan: Hemoglobin A1c 6.7 (04/05/17) Glipizide 5mg PO ACB [facility] Lantus 10 units SC once daily Novolin R ISS Metformin 500 mg PO BID [facility] Monitor Status: Acute (5) Hypertension Assessment & Plan: Continue Cozaar 25mg PO daily Continue Amlodipine 5mg PO Daily Monitor Status: Chronic (6) Hx pulmonary embolism Assessment & Plan: IVC filter in place O2 prn via NC no anticoagulation due to hx of retroperitoneal bleed. Status: Resolved (7) Hematoma Assessment & Plan: On Right upper extremity. Doppler results: negative Possible Phlebitis: warm compress and Motrin 600mg PO TID PRN Status: Acute (8) Annular psoriasis Assessment & Plan: Improved with scaly plaques Continue LacHydrin 12% to affected scaly areas BID Continue Betamethasone Valerate 0.1% to affected pruritic areas BID for two weeks (started on 04/18/17). Will stop Betamethasone after this week and try pulse therapy. Nursing communication order for topical lotion to set at bedside for other affected areas. Status: Acute (9) Vitamin D deficiency Assessment & Plan: Vitamin D below 12 on admission Continue Ergocalciferol 50,000 weekly Status: Acute (10) Prophylactic measure Assessment & Plan: Held chemical anticoagulation due to hx of retroperitoneal bleed SCDs Discontinue Pepcid 20mg PO Start Protonix 40mg PO Daily (04/22/17) Status: Acute <Jerry Elise M - Last Filed: 04/26/17 13:37> Objective - Vital Signs/Intake and Output Vital Signs (last 24 hours): Temp Pulse Resp BP Pulse Ox 97.9 F 78 18 133/76 99 04/26/17 07:35 04/26/17 07:35 04/26/17 07:35 04/26/17 07:35 04/26/17 07:35 Intake and Output: 04/26/17 04/26/17 06:59 18:59 Intake Total 1300 Balance 1300 - Medications Medications: Current Medications Albuterol/Ipratropium (Duoneb 3 Mg/0.5 Mg (3 Ml) Ud) 3 ml INH RQ4 [facility] Last Admin: 04/26/17 12:56 Dose: Not Given Amlodipine Besylate (Norvasc) 5 mg PO DAILY [facility] Last Admin: 04/26/17 10:00 Dose: 5 mg Betamethasone Valerate (Betamethasone Valerate 0.1%) 0 ml TOP BID [facility] Last Admin: 04/26/17 10:01 Dose: 1 ml Ergocalciferol (Drisdol 50,000 Intl Units Cap) 1 cap PO Q7D [facility] Stop: 05/24/17 10:16 Last Admin: 04/26/17 10:00 Dose: 1 cap Glipizide (Glucotrol) 5 mg PO ACB [facility] Last Admin: 04/19/17 08:57 Dose: Not Given Guaifenesin/Dextromethorphan (Robitussin Dm) 10 ml PO Q4H PRN PRN Reason: Cough and congestion Last Admin: 04/15/17 10:16 Dose: 10 ml Sodium Chloride (Sodium Chloride 0.9%) 1,000 mls @ 100 mls/hr IV .Q10H [facility] Last Admin: 04/26/17 05:08 Dose: 100 mls/hr Ibuprofen (Motrin Tab) 600 mg PO TID PRN PRN Reason: Pain, moderate (4-7) Insulin Glargine (Lantus) 10 unit SC DAILY [facility] Last Admin: 04/26/17 10:02 Dose: Not Given Insulin Human Regular (Novolin R) 0 unit SC ACHS [facility] PRN Reason: Protocol Last Admin: 04/26/17 07:50 Dose: Not Given Lactic Acid (Lac-Hydrin 12% Lotion (225 G)) 0 gm EXT BID [facility] Last Admin: 04/26/17 10:01 Dose: 1 applic Loperamide HCl (Imodium) 2 mg PO QID PRN PRN Reason: Diarrhea Last Admin: 04/25/17 17:44 Dose: 2 mg Losartan Potassium (Cozaar) 25 mg PO DAILY [facility] Last Admin: 04/26/17 10:00 Dose: 25 mg Metformin HCl (Glucophage) 500 mg PO BID [facility] Last Admin: 04/26/17 10:01 Dose: Not Given Metronidazole (Flagyl) 500 mg PO Q8 [facility] Ondansetron HCl (Zofran Inj) 4 mg IVP Q6H PRN PRN Reason: Nausea/Vomiting Pantoprazole Sodium (Protonix Ec Tab) 40 mg PO DAILY [facility] Last Admin: 04/26/17 10:01 Dose: 40 mg Prednisone (Prednisone Tab) 30 mg PO DAILY [facility] Last Admin: 04/26/17 10:00 Dose: 30 mg Roflumilast (Daliresp) 500 mcg PO DAILY [facility] Last Admin: 04/26/17 10:06 Dose: 500 mcg Saccharomyces Boulardii (Florastor) 250 mg PO BID [facility] Last Admin: 04/25/17 17:44 Dose: 250 mg Fluticasone/Salmeterol (Advair Diskus 500/50) 1 puff INH RQ12 [facility] Last Admin: 04/26/17 08:30 Dose: 1 puff Tiotropium [place] (Spiriva) 18 mcg INH RQ24 [facility] Last Admin: 04/26/17 08:29 Dose: 18 mcg - Labs Labs: 04/26/17 08:51 04/26/17 09:04 PT 13.3 SECONDS (9.7-12.2) H 04/04/17 18:46 INR 1.2 04/04/17 18:46 APTT 40 SECONDS (21-34) H 04/04/17 18:46 Attending/Attestation - Attestation I have personally seen and examined this patient.: Yes I have fully participated in the care of the patient.: Yes I have reviewed all pertinent clinical information, including history, physical exam and plan: Yes Notes (Text): 04/26/17 13:36 Patient was seen and examined at bedside with the resident Patient complains of cough with expectoration and sent AFB smears 3 are negative Patient complains of diarrhea now We'll monitor for C. difficile Continue management for COPD but the we will stop the antibiotics now Discussed with ID I agree with the history and physical and assessment/plan documented by the resident.
[2017-04-26] MEDS: Albuterol-Ipratrop 3 mg / 0.5 (3 ml) UD INH SCH ×6 (00:23→19:17)
[2017-04-26] MEDS: Sodium Chloride 0.9% 1,000 ML IV SCH ×3 (02:22→17:17)
[2017-04-26] MEDS: (Novolin R) Insulin Human Regular 100 units/ml vial SC SCH ×4 (07:50→21:36)
[2017-04-26] MEDS: Tiotropium 18 mcg Cap For Inhalation INH SCH (08:29)
[2017-04-26] MEDS: Fluticasone-Salmeterol 500-50mcg Diskus INH SCH ×2 (08:30→19:17)
[2017-04-26 09:02] LABS: BASO % 0.2 % (0.0-2.0); EOS # 0.1 K/uL (0.0-0.7); EOS % 1.1 % (0.0-4.0); HEMATOCRIT 39.4 % (35.0-51.0); LYMPH # 2.3 K/uL (1.0-4.3); LYMPH % 24.8 % (20.0-40.0); MEAN CELL VOLUME 87.3 fL (80.0-94.0); MEAN CORPUSCULAR HEMOGLOBIN 28.4 pg (27.0-31.0); MEAN CORPUSCULAR HGB CONC 32.6 g/dL (33.0-37.0); MEAN PLATELET VOLUME 8.5 fL (7.2-11.7); MONO % 11.2 % (0.0-10.0); RED CELL DISTRIBUTION WIDTH 16.3 % (11.5-14.5); WHITE BLOOD COUNT 9.4 K/uL (4.8-10.8)
[2017-04-26 09:16] LABS: CHLORIDE 106 mmol/L (98-107); SODIUM 141 mmol/L (132-148)
[2017-04-26 09:17] LABS: POTASSIUM 3.9 mmol/L (3.6-5.2)
[2017-04-26 09:18] LABS: GFR AFRICAN-AMERICAN > 60
[2017-04-26 09:19] LABS: ALKALINE PHOSPHATASE 52 U/L (38-126); ALT/SGPT 17 U/L (21-72); AST/SGOT 19 U/L (17-59); BILIRUBIN,TOTAL 0.8 mg/dL (0.2-1.3); BLOOD UREA NITROGEN 21 mg/dL (9-20); CARBON DIOXIDE 26 mmol/L (22-30); GLUCOSE,RANDOM 78 mg/dL (75-110); PHOSPHOROUS 2.7 mg/dL (2.5-4.5); TOTAL PROTEIN 6.1 g/dL (6.3-8.3)
[2017-04-26 09:20] LABS: CALCIUM 8.6 mg/dl (8.6-10.4); MAGNESIUM 1.7 mg/dL (1.6-2.3)
[2017-04-26 09:44] LABS: ALB/GLOB RATIO 1.1 (1.0-2.1)
[2017-04-26] MEDS: Betamethasone Valerate 0.1% Lotion (60 ml) TOP SCH ×2 (10:01→18:00)
[2017-04-26] MEDS: Pantoprazole 40 mg EC Tab PO SCH (10:01)
[2017-04-26] MEDS: Ammonium Lactate 12% Lotion (225 g) EXT SCH ×2 (10:01→17:42)
[2017-04-26] MEDS: (Lantus) Insulin Glargine, Recombinant SC SCH (10:02)
[2017-04-26] MEDS ORDERED: Ergocalciferol 50,000 Intl Units Cap PO SCH (10:15)
[2017-04-26] MEDS: Saccharomyces Boulardi 250 mg Cap PO SCH ×2 (13:52→17:41)
--- NOTE | 2017-04-26 15:26 | CARD ---
APPROVED REPORT EKG Measurement Heart [id number] <Conclusion> Normal sinus rhythm Possible Left atrial enlargement Borderline ECG
--- NOTE | 2017-04-26 18:11 | CP.PCM.PN ---
Subjective - Date & Time of Evaluation Date of Evaluation: 04/26/17 Time of Evaluation: 18:09 - Subjective Subjective: Medicine Progress Note- Dr. Elise Service [facility] Patient was in no acute distress and reports feeling better. Patient reports still having diarrhea. He has 3 episodes the previous night, and 2 this morning before being examined. Patient also reports having an episode of vomiting the previous night. patient still has chest and abdominal pain while coughing. Patient denies palpitations, nausea , fever, chills. Objective - Vital Signs/Intake and Output Vital Signs (last 24 hours): Temp Pulse Resp BP Pulse Ox 97.9 F 78 18 133/76 99 04/26/17 07:35 04/26/17 07:35 04/26/17 07:35 04/26/17 07:35 04/26/17 07:35 Intake and Output: 04/26/17 04/26/17 06:59 18:59 Intake Total 1300 480 Balance 1300 480 - Medications Medications: Current Medications Albuterol/Ipratropium (Duoneb 3 Mg/0.5 Mg (3 Ml) Ud) 3 ml INH RQ4 [facility] Last Admin: 04/26/17 12:56 Dose: Not Given Amlodipine Besylate (Norvasc) 5 mg PO DAILY [facility] Last Admin: 04/26/17 10:00 Dose: 5 mg Betamethasone Valerate (Betamethasone Valerate 0.1%) 0 ml TOP BID [facility] Last Admin: 04/26/17 10:01 Dose: 1 ml Ergocalciferol (Drisdol 50,000 Intl Units Cap) 1 cap PO Q7D [facility] Stop: 05/24/17 10:16 Last Admin: 04/26/17 10:00 Dose: 1 cap Glipizide (Glucotrol) 5 mg PO ACB [facility] Last Admin: 04/19/17 08:57 Dose: Not Given Guaifenesin/Dextromethorphan (Robitussin Dm) 10 ml PO Q4H PRN PRN Reason: Cough and congestion Last Admin: 04/15/17 10:16 Dose: 10 ml Sodium Chloride (Sodium Chloride 0.9%) 1,000 mls @ 100 mls/hr IV .Q10H [facility] Last Admin: 04/26/17 17:17 Dose: Not Given Ibuprofen (Motrin Tab) 600 mg PO TID PRN PRN Reason: Pain, moderate (4-7) Insulin Glargine (Lantus) 10 unit SC DAILY [facility] Last Admin: 04/26/17 10:02 Dose: Not Given Insulin Human Regular (Novolin R) 0 unit SC ACHS [facility] PRN Reason: Protocol Last Admin: 04/26/17 17:16 Dose: Not Given Lactic Acid (Lac-Hydrin 12% Lotion (225 G)) 0 gm EXT BID [facility] Last Admin: 04/26/17 17:42 Dose: 1 applic Loperamide HCl (Imodium) 2 mg PO QID PRN PRN Reason: Diarrhea Last Admin: 04/26/17 17:43 Dose: 2 mg Losartan Potassium (Cozaar) 25 mg PO DAILY [facility] Last Admin: 04/26/17 10:00 Dose: 25 mg Metformin HCl (Glucophage) 500 mg PO BID [facility] Last Admin: 04/26/17 17:41 Dose: 500 mg Metronidazole (Flagyl) 500 mg PO Q8 [facility] Last Admin: 04/26/17 13:52 Dose: 500 mg Ondansetron HCl (Zofran Inj) 4 mg IVP Q6H PRN PRN Reason: Nausea/Vomiting Last Admin: 04/26/17 17:43 Dose: 4 mg Pantoprazole Sodium (Protonix Ec Tab) 40 mg PO DAILY [facility] Last Admin: 04/26/17 10:01 Dose: 40 mg Prednisone (Prednisone Tab) 20 mg PO DAILY [facility] Roflumilast (Daliresp) 500 mcg PO DAILY [facility] Last Admin: 04/26/17 10:06 Dose: 500 mcg Saccharomyces Boulardii (Florastor) 250 mg PO BID [facility] Last Admin: 04/26/17 17:41 Dose: 250 mg Fluticasone/Salmeterol (Advair Diskus 500/50) 1 puff INH RQ12 [facility] Last Admin: 04/26/17 08:30 Dose: 1 puff Tiotropium [place] (Spiriva) 18 mcg INH RQ24 [facility] Last Admin: 04/26/17 08:29 Dose: 18 mcg - Labs Labs: 04/26/17 08:51 04/26/17 09:04 PT 13.3 SECONDS (9.7-12.2) H 04/04/17 18:46 INR 1.2 04/04/17 18:46 APTT 40 SECONDS (21-34) H 04/04/17 18:46 - Constitutional Appears: No Acute Distress - Head Exam Head Exam: NORMAL INSPECTION, NORMOCEPHALIC - Eye Exam Eye Exam: EOMI, Normal appearance - ENT Exam ENT Exam: Mucous Membranes Moist - Neck Exam Neck Exam: Full ROM, Normal Inspection - Respiratory Exam Respiratory Exam: Decreased Breath Sounds, Wheezes, NORMAL BREATHING PATTERN - Cardiovascular Exam Cardiovascular Exam: REGULAR RHYTHM, +S1, +S2 - GI/Abdominal Exam GI & Abdominal Exam: Soft, Tenderness, Normal Bowel Sounds - Extremities Exam Extremities Exam: Normal Inspection. absent: Calf Tenderness, Pedal Edema - Neurological Exam Neurological Exam: Alert, Awake, Oriented x3 - Psychiatric Exam Psychiatric exam: Normal Affect, Normal Mood - Skin Skin Exam: Dry, Intact, Normal Color, Warm Assessment and Plan (1) COPD exacerbation Assessment & Plan: Infectious disease consult placed- Dr. Stewart, help appreciated As per Dr. Stewart, discontinue Imipenem/Cilastin on day 14. Patient has previous history of TB. AFB results- AFBx3 negative. Gold QuantiFERON ordered 04/22/[address] Stewart-negative Sputum culture: normal oral leah Wheezing and Rhonchi have mildly improved Increased Prednisone to 30mg PO Daily (on 04/21) Continue Albuterol 3ml INH RQ4 [facility] Continue Guaifenesin/Dextromethorphan 10ml PO Q4H PRN Continue Spiriva 18mcg INH RQ24 [facility] Continue Advair Diskus 500/50 1 puff INH RQ12 [facility] Repeat chest xray 04/21: suggestive of infiltrate or atelectasis at left lung base, blunting of left costophrenic angle which may represnt pleural thickening or trace effusion. venous congestion and/or interstitial airspace opacities; Biapical pleural thickening with upper lobe granulomatous changes EKG on 04/22/17- sinus rhythm Status: Acute (2) Dysuria Assessment & Plan: UA: negative urine culture - negative Urinalysis: yeast Urine Culture negative (04/09/17) Status: Resolved (3) Diarrhea Assessment & Plan: Diarrhea reported C. Diff ordered 04/24/17- negative Immodium 2mg PO QID PRN Flagyl 500mg PO Q8 Status: Acute (4) Diabetes mellitus Assessment & Plan: Hemoglobin A1c 6.7 (04/05/17) Glipizide 5mg PO ACB [facility] Lantus 10 units SC once daily Novolin R ISS Metformin 500 mg PO BID [facility] Monitor Status: Acute (5) Hypertension Assessment & Plan: Continue Cozaar 25mg PO daily Continue Amlodipine 5mg PO Daily Monitor Status: Chronic (6) Hx pulmonary embolism Assessment & Plan: IVC filter in place O2 prn via NC no anticoagulation due to hx of retroperitoneal bleed. Status: Resolved (7) Hematoma Assessment & Plan: On Right upper extremity. Doppler results: negative Possible Phlebitis: warm compress and Motrin 600mg PO TID PRN Status: Acute (8) Annular psoriasis Assessment & Plan: Improved with scaly plaques Continue LacHydrin 12% to affected scaly areas BID Continue Betamethasone Valerate 0.1% to affected pruritic areas BID for two weeks (started on 04/18/17). Will stop Betamethasone after this week and try pulse therapy. Nursing communication order for topical lotion to set at bedside for other affected areas. Status: Acute (9) Vitamin D deficiency Assessment & Plan: Vitamin D below 12 on admission Continue Ergocalciferol 50,000 weekly Status: Acute (10) Prophylactic measure Assessment & Plan: Held chemical anticoagulation due to hx of retroperitoneal bleed SCDs Discontinue Pepcid 20mg PO Start Protonix 40mg PO Daily (04/22/17) Status: Acute
[2017-04-27] MEDS: Albuterol-Ipratrop 3 mg / 0.5 (3 ml) UD INH SCH ×6 (00:50→20:15)
[2017-04-27] MEDS: Sodium Chloride 0.9% 1,000 ML IV SCH (05:24)
[2017-04-27] MEDS: Fluticasone-Salmeterol 500-50mcg Diskus INH SCH ×2 (07:39→20:17)
[2017-04-27 08:41] LABS: BASO % 0.3 % (0.0-2.0); EOS # 0.1 K/uL (0.0-0.7); EOS % 1.1 % (0.0-4.0); HEMATOCRIT 37.9 % (35.0-51.0); LYMPH # 2.6 K/uL (1.0-4.3); MEAN CELL VOLUME 86.7 fL (80.0-94.0); MEAN CORPUSCULAR HEMOGLOBIN 28.4 pg (27.0-31.0); MEAN CORPUSCULAR HGB CONC 32.7 g/dL (33.0-37.0); MEAN PLATELET VOLUME 8.2 fL (7.2-11.7); MONO % 10.6 % (0.0-10.0); RED CELL DISTRIBUTION WIDTH 16.7 % (11.5-14.5); WHITE BLOOD COUNT 9.6 K/uL (4.8-10.8)
--- NOTE | 2017-04-27 08:45 | CP.PCM.PN ---
<Alba Toribio - Last Filed: 04/27/17 16:47> Subjective - Date & Time of Evaluation Date of Evaluation: 04/27/17 Time of Evaluation: 08:43 - Subjective Subjective: Medicine Progress Note- Dr. Preciado Service Patient was seen and examined at bedside in no acute distress. Patient reports feeling better, less short of breath, diarrhea has decreased and has it "on and off". He reports still coughing with brown phlegm. Patient states his chest and abdomen hurt when coughing. Patient has been ambulating. Patient currently denies nausea, vomiting, dizziness, and palpitations. Objective - Vital Signs/Intake and Output Vital Signs (last 24 hours): Temp Pulse Resp BP Pulse Ox 97.2 F L 92 H 20 120/64 96 04/27/17 00:14 04/27/17 00:14 04/27/17 00:14 04/27/17 00:14 04/27/17 00:14 - Medications Medications: Current Medications Albuterol/Ipratropium (Duoneb 3 Mg/0.5 Mg (3 Ml) Ud) 3 ml INH RQ4 [facility] Last Admin: 04/27/17 07:40 Dose: 3 ml Amlodipine Besylate (Norvasc) 5 mg PO DAILY [facility] Last Admin: 04/26/17 10:00 Dose: 5 mg Betamethasone Valerate (Betamethasone Valerate 0.1%) 0 ml TOP BID [facility] Last Admin: 04/26/17 18:00 Dose: 60 ml Ergocalciferol (Drisdol 50,000 Intl Units Cap) 1 cap PO Q7D [facility] Stop: 05/24/17 10:16 Last Admin: 04/26/17 10:00 Dose: 1 cap Glipizide (Glucotrol) 5 mg PO ACB [facility] Last Admin: 04/19/17 08:57 Dose: Not Given Guaifenesin/Dextromethorphan (Robitussin Dm) 10 ml PO Q4H PRN PRN Reason: Cough and congestion Last Admin: 04/15/17 10:16 Dose: 10 ml Sodium Chloride (Sodium Chloride 0.9%) 1,000 mls @ 100 mls/hr IV .Q10H [facility] Last Admin: 04/27/17 05:24 Dose: 100 mls/hr Ibuprofen (Motrin Tab) 600 mg PO TID PRN PRN Reason: Pain, moderate (4-7) Insulin Glargine (Lantus) 10 unit SC DAILY [facility] Last Admin: 04/26/17 10:02 Dose: Not Given Insulin Human Regular (Novolin R) 0 unit SC ACHS [facility] PRN Reason: Protocol Last Admin: 04/26/17 21:36 Dose: Not Given Lactic Acid (Lac-Hydrin 12% Lotion (225 G)) 0 gm EXT BID [facility] Last Admin: 04/26/17 17:42 Dose: 1 applic Loperamide HCl (Imodium) 2 mg PO QID PRN PRN Reason: Diarrhea Last Admin: 04/26/17 17:43 Dose: 2 mg Losartan Potassium (Cozaar) 25 mg PO DAILY [facility] Last Admin: 04/26/17 10:00 Dose: 25 mg Metformin HCl (Glucophage) 500 mg PO BID [facility] Last Admin: 04/26/17 17:41 Dose: 500 mg Metronidazole (Flagyl) 500 mg PO Q8 [facility] Last Admin: 04/27/17 05:42 Dose: 500 mg Ondansetron HCl (Zofran Inj) 4 mg IVP Q6H PRN PRN Reason: Nausea/Vomiting Last Admin: 04/26/17 17:43 Dose: 4 mg Pantoprazole Sodium (Protonix Ec Tab) 40 mg PO DAILY [facility] Last Admin: 04/26/17 10:01 Dose: 40 mg Prednisone (Prednisone Tab) 20 mg PO DAILY [facility] Roflumilast (Daliresp) 500 mcg PO DAILY [facility] Last Admin: 04/26/17 10:06 Dose: 500 mcg Saccharomyces Boulardii (Florastor) 250 mg PO BID [facility] Last Admin: 04/26/17 17:41 Dose: 250 mg Fluticasone/Salmeterol (Advair Diskus 500/50) 1 puff INH RQ12 [facility] Last Admin: 04/27/17 07:39 Dose: 1 puff Tiotropium [place] (Spiriva) 18 mcg INH RQ24 [facility] Last Admin: 04/26/17 08:29 Dose: 18 mcg - Labs Labs: 04/27/17 08:20 04/26/17 09:04 PT 13.3 SECONDS (9.7-12.2) H 04/04/17 18:46 INR 1.2 04/04/17 18:46 APTT 40 SECONDS (21-34) H 04/04/17 18:46 - Constitutional Appears: No Acute Distress - Head Exam Head Exam: NORMAL INSPECTION, NORMOCEPHALIC - Eye Exam Eye Exam: EOMI, Normal appearance - ENT Exam ENT Exam: Mucous Membranes Moist - Respiratory Exam Respiratory Exam: Decreased Breath Sounds, Wheezes, NORMAL BREATHING PATTERN - Cardiovascular Exam Cardiovascular Exam: REGULAR RHYTHM, +S1, +S2 - GI/Abdominal Exam GI & Abdominal Exam: Soft, Tenderness (with palpation L>R), Normal Bowel Sounds - Extremities Exam Extremities Exam: Full ROM. absent: Calf Tenderness, Pedal Edema, Tenderness - Neurological Exam Neurological Exam: Alert, Awake, Oriented x3 - Psychiatric Exam Psychiatric exam: Normal Affect, Normal Mood - Skin Skin Exam: Dry, Intact, Normal Color, Warm Assessment and Plan (1) COPD exacerbation Assessment & Plan: Infectious disease consult placed- Dr. Stewart, help appreciated As per Dr. Stewart, discontinue Imipenem/Cilastin on day 14. Patient has previous history of TB. AFB results- AFBx3 negative. Gold QuantiFERON ordered 04/22/[address] Stewart-negative Sputum culture: normal oral leah Wheezing and Rhonchi have mildly improved Decreased Prednisone to 10mg PO Daily (on 04/27) Continue Albuterol 3ml INH RQ4 [facility] Continue Guaifenesin/Dextromethorphan 10ml PO Q4H PRN Continue Spiriva 18mcg INH RQ24 [facility] Continue Advair Diskus 500/50 1 puff INH RQ12 [facility] Repeat chest xray 04/21: suggestive of infiltrate or atelectasis at left lung base, blunting of left costophrenic angle which may represnt pleural thickening or trace effusion. venous congestion and/or interstitial airspace opacities; Biapical pleural thickening with upper lobe granulomatous changes EKG on 04/22/17- sinus rhythm Status: Acute (2) Dysuria Assessment & Plan: UA: negative urine culture - negative Urinalysis: yeast Urine Culture negative (04/09/17) Status: Resolved (3) Diarrhea Assessment & Plan: Diarrhea reported diarrhea improving 04/27/17 C. Diff ordered 04/24/17- negative Immodium 2mg PO QID PRN Flagyl 500mg PO Q8 Status: Acute (4) Diabetes mellitus Assessment & Plan: Hemoglobin A1c 6.7 (04/05/17) Glipizide 5mg PO ACB [facility] Lantus 10 units SC once daily Novolin R ISS Metformin 500 mg PO BID [facility] Monitor Status: Acute (5) Hypertension Assessment & Plan: Continue Cozaar 25mg PO daily Continue Amlodipine 5mg PO Daily Monitor Status: Chronic (6) Hx pulmonary embolism Assessment & Plan: IVC filter in place O2 prn via NC no anticoagulation due to hx of retroperitoneal bleed. Status: Resolved (7) Hematoma Assessment & Plan: On Right upper extremity. Doppler results: negative Possible Phlebitis: warm compress and Motrin 600mg PO TID PRN Status: Acute (8) Annular psoriasis Assessment & Plan: Improved with scaly plaques Continue LacHydrin 12% to affected scaly areas BID Continue Betamethasone Valerate 0.1% to affected pruritic areas BID for two weeks (started on 04/18/17). Will stop Betamethasone after this week and try pulse therapy. Nursing communication order for topical lotion to set at bedside for other affected areas. Status: Acute (9) Vitamin D deficiency Assessment & Plan: Vitamin D below 12 on admission Continue Ergocalciferol 50,000 weekly Status: Acute (10) Prophylactic measure Assessment & Plan: Held chemical anticoagulation due to hx of retroperitoneal bleed SCDs Discontinue Pepcid 20mg PO Start Protonix 40mg PO Daily (04/22/17) Status: Acute <Charles Preciado H - Last Filed: 04/27/17 16:57> Objective - Vital Signs/Intake and Output Vital Signs (last 24 hours): Temp Pulse Resp BP Pulse Ox 98.2 F 81 18 122/60 98 04/27/17 15:20 04/27/17 15:20 04/27/17 15:20 04/27/17 15:20 04/27/17 15:20 - Medications Medications: Current Medications Albuterol/Ipratropium (Duoneb 3 Mg/0.5 Mg (3 Ml) Ud) 3 ml INH RQ4 [facility] Last Admin: 04/27/17 11:19 Dose: 3 ml Amlodipine Besylate (Norvasc) 5 mg PO DAILY [facility] Last Admin: 04/27/17 10:35 Dose: 5 mg Betamethasone Valerate (Betamethasone Valerate 0.1%) 0 ml TOP BID [facility] Last Admin: 04/27/17 10:38 Dose: 1 ml Ergocalciferol (Drisdol 50,000 Intl Units Cap) 1 cap PO Q7D [facility] Stop: 05/24/17 10:16 Last Admin: 04/26/17 10:00 Dose: 1 cap Glipizide (Glucotrol) 5 mg PO ACB [facility] Last Admin: 04/19/17 08:57 Dose: Not Given Guaifenesin/Dextromethorphan (Robitussin Dm) 10 ml PO Q4H PRN PRN Reason: Cough and congestion Last Admin: 04/15/17 10:16 Dose: 10 ml Sodium Chloride (Sodium Chloride 0.9%) 1,000 mls @ 100 mls/hr IV .Q10H [facility] Last Admin: 04/27/17 05:24 Dose: 100 mls/hr Ibuprofen (Motrin Tab) 600 mg PO TID PRN PRN Reason: Pain, moderate (4-7) Insulin Glargine (Lantus) 10 unit SC DAILY [facility] Last Admin: 04/27/17 10:40 Dose: Not Given Insulin Human Regular (Novolin R) 0 unit SC ACHS [facility] PRN Reason: Protocol Last Admin: 04/27/17 12:55 Dose: Not Given Lactic Acid (Lac-Hydrin 12% Lotion (225 G)) 0 gm EXT BID [facility] Last Admin: 04/27/17 10:39 Dose: 1 applic Loperamide HCl (Imodium) 2 mg PO QID PRN PRN Reason: Diarrhea Last Admin: 04/26/17 17:43 Dose: 2 mg Losartan Potassium (Cozaar) 25 mg PO DAILY [facility] Last Admin: 04/27/17 10:35 Dose: 25 mg Metformin HCl (Glucophage) 500 mg PO BID [facility] Last Admin: 04/27/17 10:35 Dose: 500 mg Metronidazole (Flagyl) 500 mg PO Q8 [facility] Last Admin: 04/27/17 13:14 Dose: 500 mg Ondansetron HCl (Zofran Inj) 4 mg IVP Q6H PRN PRN Reason: Nausea/Vomiting Last Admin: 04/26/17 17:43 Dose: 4 mg Pantoprazole Sodium (Protonix Ec Tab) 40 mg PO DAILY [facility] Last Admin: 04/27/17 10:35 Dose: 40 mg Prednisone (Prednisone Tab) 10 mg PO DAILY [facility] Roflumilast (Daliresp) 500 mcg PO DAILY [facility] Last Admin: 04/27/17 10:35 Dose: 500 mcg Saccharomyces Boulardii (Florastor) 250 mg PO BID [facility] Last Admin: 04/27/17 10:35 Dose: 250 mg Fluticasone/Salmeterol (Advair Diskus 500/50) 1 puff INH RQ12 [facility] Last Admin: 04/27/17 07:39 Dose: 1 puff Tiotropium [place] (Spiriva) 18 mcg INH RQ24 [facility] Last Admin: 04/26/17 08:29 Dose: 18 mcg - Labs Labs: 04/27/17 08:20 04/27/17 08:20 PT 13.3 SECONDS (9.7-12.2) H 04/04/17 18:46 INR 1.2 04/04/17 18:46 APTT 40 SECONDS (21-34) H 04/04/17 18:46 Attending/Attestation - Attestation I have personally seen and examined this patient.: Yes I have fully participated in the care of the patient.: Yes I have reviewed all pertinent clinical information, including history, physical exam and plan: Yes Notes (Text): 04/27/17 16:56 Medical Attending: Patient was seen and examined by me. Agree with the above note by the resident. The patient is now being decreased on the prednisone. AFB x 3 negative Repeat sputum cx did not show E coli again I explained to patient that probably will be DC mary Preciado
[2017-04-27 08:51] LABS: CHLORIDE 105 mmol/L (98-107)
[2017-04-27 08:52] LABS: POTASSIUM 4.1 mmol/L (3.6-5.2); SODIUM 140 mmol/L (132-148)
[2017-04-27 08:54] LABS: ALB/GLOB RATIO 1.1 (1.0-2.1); ALKALINE PHOSPHATASE 46 U/L (38-126); ALT/SGPT 16 U/L (21-72); AST/SGOT 20 U/L (17-59); BILIRUBIN,TOTAL 0.7 mg/dL (0.2-1.3); BLOOD UREA NITROGEN 23 mg/dL (9-20); CARBON DIOXIDE 27 mmol/L (22-30); GFR AFRICAN-AMERICAN > 60; GLUCOSE,RANDOM 90 mg/dL (75-110); PHOSPHOROUS 2.8 mg/dL (2.5-4.5)
[2017-04-27 08:55] LABS: CALCIUM 8.7 mg/dl (8.6-10.4); MAGNESIUM 1.6 mg/dL (1.6-2.3)
[2017-04-27] MEDS: (Novolin R) Insulin Human Regular 100 units/ml vial SC SCH ×4 (09:38→21:14)
[2017-04-27] MEDS: Saccharomyces Boulardi 250 mg Cap PO SCH ×2 (10:35→17:47)
[2017-04-27] MEDS: Pantoprazole 40 mg EC Tab PO SCH (10:35)
[2017-04-27] MEDS: Betamethasone Valerate 0.1% Lotion (60 ml) TOP SCH ×2 (10:38→17:46)
[2017-04-27] MEDS: Ammonium Lactate 12% Lotion (225 g) EXT SCH ×2 (10:39→17:47)
[2017-04-27] MEDS: (Lantus) Insulin Glargine, Recombinant SC SCH (10:40)
[2017-04-28] MEDS: Albuterol-Ipratrop 3 mg / 0.5 (3 ml) UD INH SCH ×3 (00:48→09:15)
[2017-04-28 00:52] VITALS: RESP 20
[2017-04-28 08:00] LABS: BASO % 0.2 % (0.0-2.0); EOS # 0.1 K/uL (0.0-0.7); EOS % 1.2 % (0.0-4.0); HEMATOCRIT 38.3 % (35.0-51.0); LYMPH # 2.6 K/uL (1.0-4.3); LYMPH % 24.9 % (20.0-40.0); MEAN CELL VOLUME 87.3 fL (80.0-94.0); MEAN CORPUSCULAR HEMOGLOBIN 28.6 pg (27.0-31.0); MEAN CORPUSCULAR HGB CONC 32.8 g/dL (33.0-37.0); MEAN PLATELET VOLUME 8.1 fL (7.2-11.7); MONO % 9.3 % (0.0-10.0); RED CELL DISTRIBUTION WIDTH 16.5 % (11.5-14.5); WHITE BLOOD COUNT 10.3 K/uL (4.8-10.8)
[2017-04-28 08:12] LABS: CHLORIDE 103 mmol/L (98-107); POTASSIUM 3.8 mmol/L (3.6-5.2); SODIUM 138 mmol/L (132-148)
[2017-04-28 08:14] LABS: BILIRUBIN,TOTAL 0.7 mg/dL (0.2-1.3); GFR AFRICAN-AMERICAN > 60
[2017-04-28 08:15] LABS: ALB/GLOB RATIO 1.1 (1.0-2.1); ALKALINE PHOSPHATASE 47 U/L (38-126); ALT/SGPT 20 U/L (21-72); AST/SGOT 18 U/L (17-59); BLOOD UREA NITROGEN 24 mg/dL (9-20); CALCIUM 8.9 mg/dl (8.6-10.4); CARBON DIOXIDE 27 mmol/L (22-30); GLUCOSE,RANDOM 85 mg/dL (75-110); MAGNESIUM 1.5 mg/dL (1.6-2.3); PHOSPHOROUS 3.1 mg/dL (2.5-4.5); TOTAL PROTEIN 6.2 g/dL (6.3-8.3)
[2017-04-28] MEDS: (Novolin R) Insulin Human Regular 100 units/ml vial SC SCH ×3 (08:23→17:38)
[2017-04-28] MEDS: Tiotropium 18 mcg Cap For Inhalation INH SCH (09:15)
[2017-04-28] MEDS: Fluticasone-Salmeterol 500-50mcg Diskus INH SCH (09:16)
[2017-04-28] MEDS: Pantoprazole 40 mg EC Tab PO SCH (10:06)
[2017-04-28] MEDS: (Lantus) Insulin Glargine, Recombinant SC SCH (10:07)
[2017-04-28] MEDS: Ammonium Lactate 12% Lotion (225 g) EXT SCH ×2 (10:08→17:39)
[2017-04-28] MEDS: Betamethasone Valerate 0.1% Lotion (60 ml) TOP SCH ×2 (10:08→17:38)
[2017-04-28] MEDS: Saccharomyces Boulardi 250 mg Cap PO SCH ×2 (10:08→17:38)
[2017-04-28] MEDS: Sodium Chloride 0.9% 1,000 ML IV SCH (10:08)
--- NOTE | 2017-04-28 13:14 | CP.PCM.DIS ---
<CarineosmaniAlba MirnaJovany - Last Filed: 04/28/17 15:56> Provider - Provider Date of Admission: 04/04/17 22:31 Attending physician: Jerry Elise MD Primary care physician: none Consults: [facility]- PMD Time Spent in preparation of Discharge (in minutes): 45 Diagnosis - Discharge Diagnosis (1) COPD exacerbation Status: Resolved Priority: High Comment: See hospital summary for further details. (2) Dysuria Status: Resolved Comment: See hospital summary for further details. (3) Diarrhea Status: Resolved Comment: See hospital summary for further details. (4) Diabetes mellitus Status: Chronic Comment: See hospital summary for further details. (5) Hypertension Status: Chronic Comment: See hospital summary for further details. (6) Hx pulmonary embolism Status: Resolved Priority: High Comment: See hospital summary for further details. (7) Hematoma Status: Resolved Comment: See hospital summary for further details. (8) Annular psoriasis Status: Chronic Comment: See hospital summary for further details. (9) Vitamin D deficiency Status: Chronic Comment: See hospital summary for further details. Hospital Course - Lab Results Lab Results: Micro Results 04/19/17 08:57 Other: Please Indicate Mycobacterial Culture - Preliminary 04/22/17 22:34 Other: Please Indicate Mycobacterial Culture - Preliminary 04/21/17 08:10 Other: Please Indicate Mycobacterial Culture - Preliminary 04/20/17 09:19 Other: Please Indicate Mycobacterial Culture - Preliminary 04/18/17 20:00 Sputum Induced Gram Stain - Final 04/18/17 20:00 Sputum Induced Sputum Culture - Final NORMAL ORAL CB 04/14/17 Unknown Urine Urine Culture - Final No Growth (<1,000 CFU/ML) 04/09/17 14:57 Urine Urine Culture - Final No Growth (<1,000 CFU/ML) 04/08/17 20:25 Sputum Gram Stain - Final 04/08/17 20:25 Sputum Sputum Culture - Final Escherichia Coli Most Recent Lab Values WBC 10.3 K/uL (4.8-10.8) 04/28/17 07:51 RBC 4.39 Mil/uL (4.40-5.90) L 04/28/17 07:51 Hgb 12.6 g/dL (12.0-18.0) 04/28/17 07:51 Hct 38.3 % (35.0-51.0) 04/28/17 07:51 MCV 87.3 fL (80.0-94.0) 04/28/17 07:51 MCH 28.6 pg (27.0-31.0) 04/28/17 07:51 MCHC 32.8 g/dL (33.0-37.0) L 04/28/17 07:51 RDW 16.5 % (11.5-14.5) H 04/28/17 07:51 Plt Count 171 K/uL (130-400) 04/28/17 07:51 MPV 8.1 fL (7.2-11.7) 04/28/17 07:51 Neut % (Auto) 64.4 % (50.0-75.0) 04/28/17 07:51 Lymph % (Auto) 24.9 % (20.0-40.0) 04/28/17 07:51 Sharkey % (Auto) 9.3 % (0.0-10.0) 04/28/17 07:51 Eos % (Auto) 1.2 % (0.0-4.0) 04/28/17 07:51 Baso % (Auto) 0.2 % (0.0-2.0) 04/28/17 07:51 Neut # 6.6 K/uL (1.8-7.0) 04/28/17 07:51 Lymph # 2.6 K/uL (1.0-4.3) 04/28/17 07:51 Sharkey # 1.0 K/uL (0.0-0.8) H 04/28/17 07:51 Eos # 0.1 K/uL (0.0-0.7) 04/28/17 07:51 Baso # 0.0 K/uL (0.0-0.2) 04/28/17 07:51 Neutrophils % (Manual) 84 % (50-75) H 04/16/17 06:24 Band Neutrophils % 3 % (0-2) H 04/16/17 06:24 Lymphocytes % (Manual) 9 % (20-40) L 04/16/17 06:24 Reactive Lymphs % 1 % (0-0) H 04/09/17 07:49 Monocytes % (Manual) 4 % (0-10) 04/16/17 06:24 Nucleated RBC % 1 % (0-0) H 04/10/17 07:51 Toxic Granulation Present 04/09/17 07:49 Platelet Estimate Normal (NORMAL) 04/16/17 06:24 Large Platelets Present 04/09/17 07:49 Giant Platelets Present 04/08/17 08:30 Hypochromasia (manual) Slight 04/08/17 08:30 Poikilocytosis (manual Slight 04/10/17 07:51 Basophilic Stippling Slight 04/09/17 07:49 Anisocytosis (manual) Slight 04/16/17 06:24 Target Cells Slight 04/09/17 07:49 Tear Drop Cells Slight 04/16/17 06:24 Ovalocytes Slight 04/09/17 07:49 Zakiya Cells Slight 04/16/17 06:24 PT 13.3 SECONDS (9.7-12.2) H 04/04/17 18:46 INR 1.2 04/04/17 18:46 APTT 40 SECONDS (21-34) H 04/04/17 18:46 Puncture Site Rra 04/04/17 20:00 pCO2 40 mm/Hg (35-45) 04/04/17 20:00 pO2 69 mm/Hg (80-100) L 04/04/17 20:00 HCO3 26.4 mmol/L (21-28) 04/04/17 20:00 ABG pH 7.43 (7.35-7.45) 04/04/17 20:00 ABG Total CO2 27.7 mmol/L (22-28) 04/04/17 20:00 ABG O2 Saturation 98.1 % (95-98) H 04/04/17 20:00 ABG Base Excess 2.0 mmol/L (-2.0-3.0) 04/04/17 20:00 Tae Test Pos 04/04/17 20:00 ABG Potassium 3.5 mmol/L (3.6-5.2) L 04/04/17 20:00 A-a O2 Difference 31.0 mm/Hg 04/04/17 20:00 Respiratory Index 0.4 04/04/17 20:00 Sodium 139.0 mmol/l (132-148) 04/04/17 20:00 Chloride 113.0 mmol/L (98-107) H 04/04/17 20:00 Glucose 86 mg/dl (75-110) 04/04/17 20:00 Lactate 0.7 mmol/L (0.7-2.1) 04/04/17 20:00 FiO2 21.0 % 04/04/17 20:00 Sodium 138 mmol/L (132-148) 04/28/17 07:51 Potassium 3.8 mmol/L (3.6-5.2) 04/28/17 07:51 Chloride 103 mmol/L (98-107) 04/28/17 07:51 Carbon Dioxide 27 mmol/L (22-30) 04/28/17 07:51 Anion Gap 11 (10-20) 04/28/17 07:51 BUN 24 mg/dL (9-20) H 04/28/17 07:51 Creatinine 0.8 MG/DL (0.8-1.5) 04/28/17 07:51 Est GFR ( Amer) > 60 04/28/17 07:51 Est GFR (Non-Af Amer) > 60 04/28/17 07:51 POC Glucose (mg/dL) 100 mg/dL (65-110) 04/28/17 11:51 Random Glucose 85 mg/dL (75-110) 04/28/17 07:51 Hemoglobin A1c 6.7 % (4.2-6.5) H 04/05/17 06:18 Calcium 8.9 mg/dl (8.6-10.4) 04/28/17 07:51 Phosphorus 3.1 mg/dL (2.5-4.5) 04/28/17 07:51 Magnesium 1.5 mg/dL (1.6-2.3) L 04/28/17 07:51 Total Bilirubin 0.7 mg/dL (0.2-1.3) 04/28/17 07:51 AST 18 U/L (17-59) 04/28/17 07:51 ALT 20 U/L (21-72) L D 04/28/17 07:51 Alkaline Phosphatase 47 U/L (38-126) 04/28/17 07:51 Total Creatine Kinase 79 U/L (55-170) 04/05/17 12:12 CK-MB (Mass) 2.02 ng/mL (0.0-3.38) 04/05/17 12:12 Troponin I < 0.0120 ng/mL (0.00-0.120) 04/04/17 18:46 Troponin I, Quant < 0.0120 ng/mL (0.00-0.120) 04/05/17 12:12 NT-Pro-B Natriuret Pep 295 pg/mL (0-900) 04/04/17 19:56 Total Protein 6.2 g/dL (6.3-8.3) L 04/28/17 07:51 Albumin 3.3 g/dL (3.5-5.0) L 04/28/17 07:51 Globulin 2.9 gm/dL (2.2-3.9) 04/28/17 07:51 Albumin/Globulin Ratio 1.1 (1.0-2.1) 04/28/17 07:51 Vitamin B12 383 pg/mL (239-931) 04/05/17 06:18 25-OH Vitamin D Total < 12.8 NG/ML (30.0-100.0) L 04/05/17 06:18 RBC Folate 439 ng/mL RBC (>280) 04/05/17 07:00 Arterial Blood Potassium 3.5 mmol/L (3.6-5.2) L 04/04/17 20:00 Urine Color Yellow (YELLOW) 04/14/17 20:46 Urine Clarity Hazy (Clear) 04/14/17 20:46 Urine pH 6.0 (5.0-8.0) 04/14/17 20:46 Ur Specific [place] 1.009 (1.003-1.030) 04/14/17 20:46 Urine Protein Negative mg/dL (NEGATIVE) 04/14/17 20:46 Urine Glucose (UA) 1+ mg/dL (Normal) H 04/14/17 20:46 Urine Ketones Negative mg/dL (NEGATIVE) 04/14/17 20:46 Urine Blood Negative (NEGATIVE) 04/14/17 20:46 Urine Nitrate Negative (NEGATIVE) 04/14/17 20:46 Urine Bilirubin Negative (NEGATIVE) 04/14/17 20:46 Urine Urobilinogen Normal mg/dL (0.2-1.0) 04/14/17 20:46 Ur Leukocyte Esterase Neg Aftab/uL (Negative) 04/14/17 20:46 Urine WBC (Auto) 1 /hpf (0-5) 04/14/17 20:46 Urine RBC (Auto) 1 /hpf (0-3) 04/14/17 20:46 Ur Squamous Epith Cells 1 /hpf (0-5) 04/14/17 20:46 Urine Bacteria Rare (<OCC) 04/14/17 20:46 Urine Yeast (Budding) Few /hpf (NEGATIVE) H 04/09/17 15:17 C. difficile Ag & Toxin Negative (NEGATIVE) 04/24/17 06:00 HIV 1&2 Antibody Screen Negative (NEGATIVE) 04/16/17 11:26 TB Test (QFT) Nil 0.04 IU/mL 04/22/17 14:04 TB Test Mitogen - Nil 2.31 IU/mL 04/22/17 14:04 TB Test TB - Nil 0.00 IU/mL 04/22/17 14:04 TB Test (QFT) Negative (Negative) 04/22/17 14:04 - Hospital Course Hospital Course: CC - "Shortness of breath" HPI - Patient is a 66 year old male, with a past medical history of COPD , hypertension, asthma, pulmonary embolism (not on anticoagulation because of history of hematoma), presented to emergency room complaining of sob, chest pain that started 1 hour prior to arrival and productive cough with associated with green/yellow sputum.. He was recently discharged from [facility] on 03/17/17 but states he did not fill any medications because he did not have money. Patient states he has not taken any medication for the pain. Patient is speaking in complete sentences. Denies fever, chills, nausea or vomiting, abdominal pain, numbness or tingling in the extremities. He admits to leg swelling. PCP- Does not have a PCP PMHx - CPOD, DM, HTN, Asthma, PE (IVC filter), retroperotineal hematoma, psoriasis Meds - does not take any because he does not have money to fill them Allergies - NKDA Surg - none Fam Hx - unknown Social - 30 pack year history quit 1 year ago used to smoke 3-4 packs a day, used to drink a lot, denies drug use. he stays at a friends house during the week but in the skilled nursing. he goes to the skilled nursing daily for meals and walks there Patient was admitted for shortness of breath, cough with green/yellow sputum, and chest pain. In the ED, EKG showed nonspecific changes, chest xray showed cardiomegaly, a vague patchy opacity at right lung base, no fracture or pneumothorax. He was given aspirin, lasix, and a nebulizer treatment. Troponins x 3 were negative. Patient was admitted and treated for COPD exacerbation and diabetes mellitus. The patient has a history of PE, but was not anticoagulated due to a history of retroperitoneal bleed; He has an IVC filter in place. The chest CT showed atelectatic/scarring changes at lungs bases, emphysematous changes, bulla, calcific granuloma and a small nodule. Sputum was positive for ESBL, patient was treated with antibiotics and consulted by infectious disease. Patient was put on isolation orders and tested for TB. Patient was negative for TB. Patient had intermittent diarrhea during his hospital stay, but tested negative for C.diff. Patient was also treated for psoriasis on his abdomen. Patient is stable to be discharged as per Dr. Preciado. This is a summary of the hospital course. Please see chart for details. Patient is stable for discharge home as per Dr. Preciado. Patient should resume the following medications listed below: Albuterol Inhaler- use as needed Norvasc 5mg PO Daily Betamethasone Valerate 0.1%, use topically twice per day Ergocalciferol 50,000 IU, take 1 capsule every week Lactic Acid 12% lotion, apply topically three times daily, as needed Lisinopril 10mg once daily Metformin 500mg, take twice per day Flovent 0.11mg, inhale once per day Please follow up with your primary care doctor, [facility], within one week of discharge. These instructions were provided and understood by the patient. Patient should return to the ED if symptoms reoccur. Discharge Exam - Head Exam Head Exam: NORMAL INSPECTION, NORMOCEPHALIC - Eye Exam Eye Exam: EOMI, Normal appearance - ENT Exam ENT Exam: Mucous Membranes Moist - Respiratory Exam Respiratory Exam: Decreased Breath Sounds, NORMAL BREATHING PATTERN - Cardiovascular Exam Cardiovascular Exam: REGULAR RHYTHM, +S1 - GI/Abdominal Exam GI & Abdominal Exam: Normal Bowel Sounds, Unremarkable - Extremities Exam Extremities exam: full ROM, normal inspection - Neurological Exam Neurological exam: Alert, Normal Gait, Oriented x3 - Psychiatric Exam Psychiatric exam: Normal Affect, Normal Mood - Skin Skin Exam: Dry, Intact, Normal Color, Warm Additional comments: Psoriatic patches on abdomen Discharge Plan - Discharge Medications Prescriptions: Albuterol HFA [Ventolin HFA 90 mcg/actuation (8 g)] 2 puff IH [id number] #1 puff amLODIPine [Norvasc] 5 mg PO DAILY #30 tab Ammonium Lactate 12% [Lac-Hydrin 12% Lotion (225 g)] 12 % TOP BID #1 Betamethasone Valerate 0.1% 0.1 % TOP BID #1 bottle Ergocalciferol [Drisdol 50,000 Intl Units Cap] 1 cap PO Q7D #30 cap Fluticasone Propionate [Flovent Hfa] 0.11 mg IH DAILY #1 ml Lisinopril [Prinivil] 10 mg PO DAILY #30 tablet metFORMIN [glucOPHAGE] 500 mg PO BID #60 tab - Follow Up Plan Condition: FAIR Disposition: HOME/ ROUTINE Instructions: COPD (Chronic Obstructive Pulmonary Disease) (DC), COPD (Chronic Obstructive Pulmonary Disease) (GEN), Extended Spectrum Beta Lactamase (GEN), Dyspnea (GEN) Additional Instructions: Patient is stable for discharge home as per Dr. Preciado. Patient should resume the following medications listed below: Albuterol Inhaler- use as needed Norvasc 5mg PO Daily Betamethasone Valerate 0.1%, use topically twice per day Ergocalciferol 50,000 IU, take 1 capsule every week Glipizide 5mg PO before breakfast Lactic Acid 12% lotion, apply topically three times daily, as needed Lisinopril 10mg once daily Metformin 500mg, take twice per day Flovent 0.11mg, inhale once per day Please follow up with your primary care doctor, [facility], within one week of discharge. These instructions were provided and understood by the patient. Patient should return to the ED if symptoms reoccur. Referrals: [facility] [Outside] <Charles Preciado - Last Filed: 04/28/17 18:13> Provider - Provider Date of Admission: 04/04/17 22:31 Attending physician: Charles Preciado, DO Hospital Course - Lab Results Lab Results: Micro Results 04/19/17 08:57 Other: Please Indicate Mycobacterial Culture - Preliminary 04/22/17 22:34 Other: Please Indicate Mycobacterial Culture - Preliminary 04/21/17 08:10 Other: Please Indicate Mycobacterial Culture - Preliminary 04/20/17 09:19 Other: Please Indicate Mycobacterial Culture - Preliminary 04/18/17 20:00 Sputum Induced Gram Stain - Final 04/18/17 20:00 Sputum Induced Sputum Culture - Final NORMAL ORAL CB 04/14/17 Unknown Urine Urine Culture - Final No Growth (<1,000 CFU/ML) 04/09/17 14:57 Urine Urine Culture - Final No Growth (<1,000 CFU/ML) 04/08/17 20:25 Sputum Gram Stain - Final 04/08/17 20:25 Sputum Sputum Culture - Final Escherichia Coli Most Recent Lab Values WBC 10.3 K/uL (4.8-10.8) 04/28/17 07:51 RBC 4.39 Mil/uL (4.40-5.90) L 04/28/17 07:51 Hgb 12.6 g/dL (12.0-18.0) 04/28/17 07:51 Hct 38.3 % (35.0-51.0) 04/28/17 07:51 MCV 87.3 fL (80.0-94.0) 04/28/17 07:51 MCH 28.6 pg (27.0-31.0) 04/28/17 07:51 MCHC 32.8 g/dL (33.0-37.0) L 04/28/17 07:51 RDW 16.5 % (11.5-14.5) H 04/28/17 07:51 Plt Count 171 K/uL (130-400) 04/28/17 07:51 MPV 8.1 fL (7.2-11.7) 04/28/17 07:51 Neut % (Auto) 64.4 % (50.0-75.0) 04/28/17 07:51 Lymph % (Auto) 24.9 % (20.0-40.0) 04/28/17 07:51 Sharkey % (Auto) 9.3 % (0.0-10.0) 04/28/17 07:51 Eos % (Auto) 1.2 % (0.0-4.0) 04/28/17 07:51 Baso % (Auto) 0.2 % (0.0-2.0) 04/28/17 07:51 Neut # 6.6 K/uL (1.8-7.0) 04/28/17 07:51 Lymph # 2.6 K/uL (1.0-4.3) 04/28/17 07:51 Sharkey # 1.0 K/uL (0.0-0.8) H 04/28/17 07:51 Eos # 0.1 K/uL (0.0-0.7) 04/28/17 07:51 Baso # 0.0 K/uL (0.0-0.2) 04/28/17 07:51 Neutrophils % (Manual) 84 % (50-75) H 04/16/17 06:24 Band Neutrophils % 3 % (0-2) H 04/16/17 06:24 Lymphocytes % (Manual) 9 % (20-40) L 04/16/17 06:24 Reactive Lymphs % 1 % (0-0) H 04/09/17 07:49 Monocytes % (Manual) 4 % (0-10) 04/16/17 06:24 Nucleated RBC % 1 % (0-0) H 04/10/17 07:51 Toxic Granulation Present 04/09/17 07:49 Platelet Estimate Normal (NORMAL) 04/16/17 06:24 Large Platelets Present 04/09/17 07:49 Giant Platelets Present 04/08/17 08:30 Hypochromasia (manual) Slight 04/08/17 08:30 Poikilocytosis (manual Slight 04/10/17 07:51 Basophilic Stippling Slight 04/09/17 07:49 Anisocytosis (manual) Slight 04/16/17 06:24 Target Cells Slight 04/09/17 07:49 Tear Drop Cells Slight 04/16/17 06:24 Ovalocytes Slight 04/09/17 07:49 Miller Cells Slight 04/16/17 06:24 PT 13.3 SECONDS (9.7-12.2) H 04/04/17 18:46 INR 1.2 04/04/17 18:46 APTT 40 SECONDS (21-34) H 04/04/17 18:46 Puncture Site Rra 04/04/17 20:00 pCO2 40 mm/Hg (35-45) 04/04/17 20:00 pO2 69 mm/Hg (80-100) L 04/04/17 20:00 HCO3 26.4 mmol/L (21-28) 04/04/17 20:00 ABG pH 7.43 (7.35-7.45) 04/04/17 20:00 ABG Total CO2 27.7 mmol/L (22-28) 04/04/17 20:00 ABG O2 Saturation 98.1 % (95-98) H 04/04/17 20:00 ABG Base Excess 2.0 mmol/L (-2.0-3.0) 04/04/17 20:00 Tae Test Pos 04/04/17 20:00 ABG Potassium 3.5 mmol/L (3.6-5.2) L 04/04/17 20:00 A-a O2 Difference 31.0 mm/Hg 04/04/17 20:00 Respiratory Index 0.4 04/04/17 20:00 Sodium 139.0 mmol/l (132-148) 04/04/17 20:00 Chloride 113.0 mmol/L (98-107) H 04/04/17 20:00 Glucose 86 mg/dl (75-110) 04/04/17 20:00 Lactate 0.7 mmol/L (0.7-2.1) 04/04/17 20:00 FiO2 21.0 % 04/04/17 20:00 Sodium 138 mmol/L (132-148) 04/28/17 07:51 Potassium 3.8 mmol/L (3.6-5.2) 04/28/17 07:51 Chloride 103 mmol/L (98-107) 04/28/17 07:51 Carbon Dioxide 27 mmol/L (22-30) 04/28/17 07:51 Anion Gap 11 (10-20) 04/28/17 07:51 BUN 24 mg/dL (9-20) H 04/28/17 07:51 Creatinine 0.8 MG/DL (0.8-1.5) 04/28/17 07:51 Est GFR ( Amer) > 60 04/28/17 07:51 Est GFR (Non-Af Amer) > 60 04/28/17 07:51 POC Glucose (mg/dL) 154 mg/dL (65-110) H 04/28/17 17:08 Random Glucose 85 mg/dL (75-110) 04/28/17 07:51 Hemoglobin A1c 6.7 % (4.2-6.5) H 04/05/17 06:18 Calcium 8.9 mg/dl (8.6-10.4) 04/28/17 07:51 Phosphorus 3.1 mg/dL (2.5-4.5) 04/28/17 07:51 Magnesium 1.5 mg/dL (1.6-2.3) L 04/28/17 07:51 Total Bilirubin 0.7 mg/dL (0.2-1.3) 04/28/17 07:51 AST 18 U/L (17-59) 04/28/17 07:51 ALT 20 U/L (21-72) L D 04/28/17 07:51 Alkaline Phosphatase 47 U/L (38-126) 04/28/17 07:51 Total Creatine Kinase 79 U/L (55-170) 04/05/17 12:12 CK-MB (Mass) 2.02 ng/mL (0.0-3.38) 04/05/17 12:12 Troponin I < 0.0120 ng/mL (0.00-0.120) 04/04/17 18:46 Troponin I, Quant < 0.0120 ng/mL (0.00-0.120) 04/05/17 12:12 NT-Pro-B Natriuret Pep 295 pg/mL (0-900) 04/04/17 19:56 Total Protein 6.2 g/dL (6.3-8.3) L 04/28/17 07:51 Albumin 3.3 g/dL (3.5-5.0) L 04/28/17 07:51 Globulin 2.9 gm/dL (2.2-3.9) 04/28/17 07:51 Albumin/Globulin Ratio 1.1 (1.0-2.1) 04/28/17 07:51 Vitamin B12 383 pg/mL (239-931) 04/05/17 06:18 25-OH Vitamin D Total < 12.8 NG/ML (30.0-100.0) L 04/05/17 06:18 RBC Folate 439 ng/mL RBC (>280) 04/05/17 07:00 Arterial Blood Potassium 3.5 mmol/L (3.6-5.2) L 04/04/17 20:00 Urine Color Yellow (YELLOW) 04/14/17 20:46 Urine Clarity Hazy (Clear) 04/14/17 20:46 Urine pH 6.0 (5.0-8.0) 04/14/17 20:46 Ur Specific [place] 1.009 (1.003-1.030) 04/14/17 20:46 Urine Protein Negative mg/dL (NEGATIVE) 04/14/17 20:46 Urine Glucose (UA) 1+ mg/dL (Normal) H 04/14/17 20:46 Urine Ketones Negative mg/dL (NEGATIVE) 04/14/17 20:46 Urine Blood Negative (NEGATIVE) 04/14/17 20:46 Urine Nitrate Negative (NEGATIVE) 04/14/17 20:46 Urine Bilirubin Negative (NEGATIVE) 04/14/17 20:46 Urine Urobilinogen Normal mg/dL (0.2-1.0) 04/14/17 20:46 Ur Leukocyte Esterase Neg Aftab/uL (Negative) 04/14/17 20:46 Urine WBC (Auto) 1 /hpf (0-5) 04/14/17 20:46 Urine RBC (Auto) 1 /hpf (0-3) 04/14/17 20:46 Ur Squamous Epith Cells 1 /hpf (0-5) 04/14/17 20:46 Urine Bacteria Rare (<OCC) 04/14/17 20:46 Urine Yeast (Budding) Few /hpf (NEGATIVE) H 04/09/17 15:17 C. difficile Ag & Toxin Negative (NEGATIVE) 04/24/17 06:00 HIV 1&2 Antibody Screen Negative (NEGATIVE) 04/16/17 11:26 TB Test (QFT) Nil 0.04 IU/mL 04/22/17 14:04 TB Test Mitogen - Nil 2.31 IU/mL 04/22/17 14:04 TB Test TB - Nil 0.00 IU/mL 04/22/17 14:04 TB Test (QFT) Negative (Negative) 04/22/17 14:04 Attending/Attestation - Attestation I have personally seen and examined this patient.: Yes I have fully participated in the care of the patient.: Yes I have reviewed all pertinent clinical information, including history, physical exam and plan: Yes Notes (Text): 04/28/17 18:12 Medical attending: Patient was seen and examined by me, agree with the above note by medical laboratory assistant. The patient will be discharged today, he will be sent with a supply of medication including an inhaler albuterol, a Flovent inhaler and he was given instructions how to use this. He also be on additional tablets of prednisone. Also medication for his blood pressure will be given to him as well before he leaves I told him he needs to follow-up at the clinic for further care especially refills of his medication. From what I understand the patient is semi-homeless and so he might have difficulty filling his medication. Thank you very much, Charles Preciado
[2017-04-28 17:16] VITALS: BP 145/71; PULSE 88; TEMP 98; O2SAT 97
== END 2017-04-28 18:50 | disposition home or self-care (01) | DRG 541 ==
LOC: C.ER 18:23 → C.9E 22:31 → C.6T 23:19 → C.3T 04-07 17:01 → C.5T 04-10 13:23
PROVIDERS: ADMIT Internal Medicine; ATTEND Hospitalist
DX: J44.0 Chronic obstructive pulmonary disease with (acute) lower respiratory infection (principal); J18.9 Pneumonia, unspecified organism; J84.10 Pulmonary fibrosis, unspecified; I11.0 Hypertensive heart disease with heart failure; I50.9 Heart failure, unspecified; J44.1 Chronic obstructive pulmonary disease with (acute) exacerbation; J20.9 Acute bronchitis, unspecified; M79.81 Nontraumatic hematoma of soft tissue; E55.9 Vitamin D deficiency, unspecified; L40.8 Other psoriasis; K59.00 Constipation, unspecified; Z16.24 Resistance to multiple antibiotics; Z79.84 Long term (current) use of oral hypoglycemic drugs; Z86.11 Personal history of tuberculosis; Z86.711 Personal history of pulmonary embolism; Z87.01 Personal history of pneumonia (recurrent); Z86.718 Personal history of other venous thrombosis and embolism

== ENCOUNTER 2017-10-24 21:43 | Inpatient (IN) | payer MEDICAID, OTHER ==
[2017-10-24 21:44] VITALS: BMI 26.6
[2017-10-24] MEDS ORDERED: Albuterol-Ipratrop 3 mg / 0.5 (3 ml) UD ONE ×2 (21:54→22:15)
[2017-10-24] MEDS ORDERED: Albuterol-Ipratrop 3 mg / 0.5 (3 ml) UD INH STA ×3 (21:57→22:43)
[2017-10-24 22:10] LABS: BASO # 0.1 K/uL (0.0-0.2); BASO % 0.5 % (0.0-2.0); EOS # 0.2 K/uL (0.0-0.7); EOS % 1.6 % (0.0-4.0); HEMOGLOBIN 13.4 g/dL (12.0-18.0); LYMPH % 21.5 % (20.0-40.0); MEAN CELL VOLUME 85.5 fL (80.0-94.0); MEAN CORPUSCULAR HGB CONC 33.9 g/dL (33.0-37.0); MEAN PLATELET VOLUME 8.7 fL (7.2-11.7); MONO # 1.4 K/uL (0.0-0.8); MONO % 10.1 % (0.0-10.0); NEUT # 9.4 K/uL (1.8-7.0); NEUT % 66.3 % (50.0-75.0); RBC 4.63 Mil/uL (4.40-5.90); RED CELL DISTRIBUTION WIDTH 16.2 % (11.5-14.5); WHITE BLOOD COUNT 14.1 K/uL (4.8-10.8)
--- NOTE | 2017-10-24 22:16 | C.PDOC ---
History Of Present Illness BIBA for SOB and wheezing for a few hours. no recent illness. no cigarettes for "years" many prior evals @ [facility] ED for same. Time Seen by Provider: 10/24/17 21:53 Chief Complaint (Nursing): Shortness Of Breath History Per: Patient, EMS History/Exam Limitations: no limitations Onset/Duration Of Symptoms: Hrs Current Symptoms Are (Timing): Worse Initiating Event: Exposure To Smoke Severity: Moderate Pain Scale Rating Of: 0 Reports Recently: Seen In ED Recent travel outside of the [place]: No Additional History Per: Patient, EMS Past Medical History Reviewed: Historical Data, Nursing Documentation, Vital Signs Vital Signs: Last Vital Signs Temp 97.9 F 10/24/17 21:50 Pulse 110 H 10/24/17 22:15 Resp 22 10/24/17 22:07 BP 161/80 H 10/24/17 21:50 Pulse Ox 98 10/24/17 22:54 - Medical History PMH: Asthma, CHF, COPD, Diabetes, HTN, Pneumonia, Pulmonary Embolism Denies: HIV, Chronic Kidney Disease Surgical History: No Surg Hx - [facility] Procedures ASSISTANCE WITH RESPIRATORY VENTILATION, >96 HRS (07/28/16) INFLUENZA VACCINATION (08/27/13) INSERTION OF INFUSION DEV INTO SUP VENA CAVA, PERC APPROACH (08/18/17) INSERTION OF INTRALUM DEV INTO INF VENA CAVA, PERC APPROACH (03/09/17) INTRODUCE OF OTH THERAP SUBST INTO RESP TRACT, VIA OPENING (05/25/16) INTRODUCTION OF ANTI-INFLAM INTO RESP TRACT, VIA OPENING (03/09/17) INTRODUCTION OF SERUM/TOX/VACCINE INTO MUSCLE, PERC APPROACH (08/18/17) NEBULIZER THERAPY (08/26/14) TRANSFUSE NONAUT FROZEN PLASMA IN PERIPH VEIN, PERC (07/28/16) TRANSFUSE NONAUT PLASMA CRYOPRECIP IN PERIPH VEIN, PERC (07/28/16) TRANSFUSE NONAUT RED BLOOD CELLS IN PERIPH VEIN, PERC (07/28/16) VACCINATION NEC (08/27/13) Family History: States: No Known Family Hx, CA, Diabetes - Social History Hx Tobacco Use: Yes (1/2 CIG/DAY) Hx Alcohol Use: Yes Hx Substance Use: No - Immunization History Hx Tetanus Toxoid Vaccination: No Hx Influenza Vaccination: No Hx Pneumococcal Vaccination: No Review Of Systems Except As Marked, All Systems Reviewed And Found Negative. Physical Exam - Physical Exam Appears: In Acute Distress, Unkempt, Chronically Ill Skin: Normal Color, Other (+ lichenification of b/l legs due to psoriasis, no leg edema/erythema.) Head: Atraumatic, Normacephalic, No Tenderness Eye(s): bilateral: Normal Inspection, PERRL, EOMI Nose: Normal Oral Mucosa: Moist Tongue: Normal Appearing Lips: Normal Appearing Throat: Normal Neck: Normal Lymphatic: Deferred Chest: Symmetrical Cardiovascular: Rhythm Regular Respiratory: Rales, Rhonchi Gastrointestinal/Abdominal: Normal Exam Rectal: Deferred Extremity: Normal ROM, No Pedal Edema, No Calf Tenderness, No Swelling Neurological/Psych: Oriented x3, Normal Speech, Normal Cognition, Normal Cranial Nerves Gait: Unable To Assess ED Course And Treatment - Laboratory Results Result Diagrams: 10/24/17 22:07 10/24/17 22:07 Lab Interpretation: Abnormal ECG: Interpreted By Ri ECG Rhythm: Sinus Rhythm, Sinus Tachycardia ECG Interpretation: Abnormal Rate From EC O2 Sat by Pulse Oximetry: 98 Pulse Ox Interpretation: Normal - Radiology CXR: Interpreted by Me CXR Interpretation: Yes: No Acute Disease Progress Note: lupe solumedrol IV Reevaluation Time: 22:52 Reassessment Condition: Improved Critical Care Time - Critical Care Note Total Time (in mins): 90 Documented critical care: time excludes all time spent performing seperately billable procedures. Medical Decision Making Medical Decision Making: copd exacerbation, not smoking for "years" lichenification of legs, no edema, more d/w Psoriasis and not chronic CHF- probable cause for mild leukocytosis without L shift. Defer Abx. Disposition Doctor Will See Patient In The: Office Counseled Patient/Family Regarding: Studies Performed, Diagnosis - Disposition Disposition: HOSPITALIZED Disposition Time: 22:53 Condition: FAIR Forms: [email or web address] (Danish) - Clinical Impression Clinical Impression: COPD (chronic obstructive pulmonary disease)
[2017-10-24 22:24] LABS: ALB/GLOB RATIO 1.3 (1.0-2.1); ALBUMIN 3.8 g/dL (3.5-5.0); ALT/SGPT 24 U/L (21-72); AST/SGOT 25 U/L (17-59); BLOOD UREA NITROGEN 20 mg/dL (9-20); CALCIUM 8.3 mg/dl (8.6-10.4); GFR AFRICAN-AMERICAN > 60; GFR NON-AFRICAN AMERICAN > 60
[2017-10-24 22:35] LABS: B-TYPE NATRIURETIC PEPTIDE 215 pg/mL (0-900)
[2017-10-25] MEDS ORDERED: Albuterol-Ipratrop 3 mg / 0.5 (3 ml) UD INH PRN (00:11)
--- NOTE | 2017-10-25 00:28 | CP.PCM.HP ---
<Jesse Gamez - Last Filed: 10/25/17 01:04> History of Present Illness - History of Present Illness History of Present Illness: PGY-1 H&P for Dr. Bledsoe CC: "chest pain and shortness of breath" This is a 67 year old male with PMHx COPD, asthma, PE 2 years ago s/p IVC filter placement, retroperotineal hematoma 2 years ago, psoriasis, Diabetes who presents complaining of chest pain and shortness of breath. Patient states that both began 2 hours ago. Chest pain is described as a squeezing sensation located in the mid-sternum with intermittent radiation to the left and right side of the chest wall. It is noticeable particularly when coughing. Patient denies a history of cardiac problems. Patient states that he is coughing and producing green and brown sputum. Patient denies any sick contacts but admits that he lives with a friend during the weekdays and goes to a homeless alf on the weekends. Patient states that he only uses an Albuterol inhaler and takes it every 4 hours daily. Patient also complains of a mass in his groin that showed up 2 weeks ago and causes urination to be painful for him. PMHx: COPD, DM, Asthma, PE 2 years ago s/p IVC filter, retroperotineal hematoma 2 years ago, psoriasis PSHx: IVC filter 2 years prior Allergies - NKDA Family Hx: denies Social: 30 pack year history quit 1 year ago used to smoke 3-4 packs a day, former alcoholic, denies drug use. Patient stays at a friend's house during the week but stays in the alf on weekends because his friend's girlfriend comes on Fridays. He goes to the alf daily for meals. Meds: Albuterol inhaler takes it Q4H daily. Present on Admission - Present on Admission Any Indicators Present on Admission: Yes History of DVT/PE: Yes Review of Systems - Constitutional Constitutional: absent: Chills, Fever - EENT Eyes: absent: Change in Vision Ears: absent: Decreased Hearing Nose/Mouth/Throat: absent: Nasal Congestion - Cardiovascular Cardiovascular: Chest Pain, Dyspnea - Respiratory Respiratory: Cough (productive with green and brown sputum), Dyspnea, Wheezing - Gastrointestinal Gastrointestinal: absent: Abdominal Pain, Constipation, Diarrhea, Nausea, Vomiting - Genitourinary Genitourinary: Dysuria (secondary to mass in groin) - Musculoskeletal Musculoskeletal: absent: Muscle Weakness - Integumentary Integumentary: Other (skin thickening secondary to psoriasis) - Neurological Neurological: absent: Paresthesias, Weakness - Psychiatric Psychiatric: absent: Anxiety - Endocrine Endocrine: absent: Fatigue Past Patient History - Infectious Disease Hx of Infectious Diseases: None - Tetanus Immunizations Tetanus Immunization: Unknown - Past Medical History & Family History Past Medical History?: Yes - Past Social History Smoking Status: Former Smoker - CARDIAC Hx Congestive Heart Failure: Yes Hx Hypertension: Yes - PULMONARY Hx Asthma: Yes Hx Chronic Obstructive Pulmonary Disease (COPD): Yes Hx Pneumonia: Yes Hx Pulmonary Embolism: Yes - NEUROLOGICAL Hx Neurological Disorder: No - HEENT Hx HEENT Problems: No - RENAL Hx Chronic Kidney Disease: No - ENDOCRINE/METABOLIC Hx Endocrine Disorders: Yes Hx Diabetes Mellitus Type 2: Yes - HEMATOLOGICAL/ONCOLOGICAL Hx Human Immunodeficiency Virus (HIV): No - INTEGUMENTARY Hx Dermatological Problems: Yes (GENERALIZED SKIN PSORIASIS) Hx Psoriasis: Yes - MUSCULOSKELETAL/RHEUMATOLOGICAL Hx Musculoskeletal Disorders: No Hx Falls: No - GASTROINTESTINAL Hx Gastrointestinal Disorders: Yes Other/Comment: GI bleeding - GENITOURINARY/GYNECOLOGICAL Hx Genitourinary Disorders: No - PSYCHIATRIC Hx Substance Use: No - SURGICAL HISTORY Hx Surgeries: No - ANESTHESIA Hx Anesthesia: Yes Hx Anesthesia Reactions: No Hx Malignant Hyperthermia: No Meds Allergies/Adverse Reactions: Allergies Allergy/AdvReac Type Severity Reaction Status Date / Time No Known Allergies Allergy Verified 10/24/17 21:54 Physical Exam - Constitutional Appears: No Acute Distress - Head Exam Head Exam: ATRAUMATIC, NORMOCEPHALIC - Eye Exam Eye Exam: Conjunctival injection (bilateral), EOMI, PERRL - ENT Exam ENT Exam: Mucous Membranes Moist - Respiratory Exam Respiratory Exam: Rhonchi (right lung field), Wheezes (bilaterally). absent: Rales, Respiratory Distress - Cardiovascular Exam Cardiovascular Exam: Tachycardia, +S1, +S2 - GI/Abdominal Exam GI & Abdominal Exam: Normal Bowel Sounds, Soft. absent: Tenderness Additional comments: skin pigmentation darkened around lower abdomen - Exam Additional comments: reducible mass palpated in the groin on left side - Extremities Exam Additional comments: bilateral severe lichenification in the lower extremities - Neurological Exam Neurological exam: Alert, CN II-XII Intact, Oriented x3 - Psychiatric Exam Psychiatric exam: Normal Affect, Normal Mood - Skin Skin Exam: Dry, Warm Additional comments: darkened skin pigmentation around lower abdomen severe lichenification of lower extremities Results - Vital Signs Recent Vital Signs: Last Vital Signs Temp 97.9 F 10/24/17 21:50 Pulse 110 H 10/24/17 22:15 Resp 22 10/24/17 22:07 BP 161/80 H 10/24/17 21:50 Pulse Ox 98 10/24/17 23:31 - Labs Result Diagrams: 10/24/17 22:07 10/24/17 22:07 Labs: Laboratory Results - last 24 hr 10/24/17 10/24/17 10/24/17 21:56 22:07 22:07 WBC 14.1 H RBC 4.63 Hgb 13.4 Hct 39.6 MCV 85.5 MCH 29.0 MCHC 33.9 RDW 16.2 H Plt Count 201 MPV 8.7 Neut % (Auto) 66.3 Lymph % (Auto) 21.5 [place] % (Auto) 10.1 H Eos % (Auto) 1.6 Baso % (Auto) 0.5 Neut # 9.4 H Lymph # 3.0 [place] # 1.4 H Eos # 0.2 Baso # 0.1 Sodium 133 Potassium 4.3 Chloride 100 Carbon Dioxide 26 Anion Gap 11 BUN 20 Creatinine 1.1 Est GFR ( Amer) > 60 Est GFR (Non-Af Amer) > 60 Random Glucose 95 Calcium 8.3 L Total Bilirubin 0.8 AST 25 ALT 24 Alkaline Phosphatase 65 Troponin I 0.0130 NT-Pro-B Natriuret Pep 215 Total Protein 6.7 Albumin 3.8 Globulin 2.9 Albumin/Globulin Ratio 1.3 Influenza Typ A,B (EIA) Negative for flu a/b Assessment & Plan - Assessment and Plan (Free Text) Plan: Chest pain First MARINA negative f/u MARINA x2 COPD exacerbation CXR--no active disease Duoneb Q6 prn Solumedrol 60 mg IV Q6 Azithromycin 500 mg IV daily Ceftriaxone 1 gm IV daily f/u blood cultures History of Diabetes Hemoglobin A1c 10/11/17 was 6.2 Accuchecks and monitor for now History of PE IVC filter in place Patient tachycardic Anticogulation held due to history of retroperotineal bleed Groin Mass likely inguinal hernia on left though palpated more medial than expected f/u ultrasound Prophylactic Measures Protonix SCDs Avoided anticoagulation due to patient's history of retroperotoneal bleed Heart Healthy Diet with moderate consistent CHO <Donnie Bledsoe - Last Filed: 10/25/17 06:30> Results - Vital Signs Recent Vital Signs: Last Vital Signs Temp 98.0 F 10/25/17 02:05 Pulse 109 H 10/25/17 04:05 Resp 20 10/25/17 02:05 BP 138/76 10/25/17 02:05 Pulse Ox 100 10/25/17 02:05 - Labs Result Diagrams: 10/24/17 22:07 10/24/17 22:07 Labs: Laboratory Results - last 24 hr 10/24/17 10/24/17 10/24/17 21:56 22:07 22:07 WBC 14.1 H RBC 4.63 Hgb 13.4 Hct 39.6 MCV 85.5 MCH 29.0 MCHC 33.9 RDW 16.2 H Plt Count 201 MPV 8.7 Neut % (Auto) 66.3 Lymph % (Auto) 21.5 [place] % (Auto) 10.1 H Eos % (Auto) 1.6 Baso % (Auto) 0.5 Neut # 9.4 H Lymph # 3.0 [place] # 1.4 H Eos # 0.2 Baso # 0.1 Sodium 133 Potassium 4.3 Chloride 100 Carbon Dioxide 26 Anion Gap 11 BUN 20 Creatinine 1.1 Est GFR ( Amer) > 60 Est GFR (Non-Af Amer) > 60 Random Glucose 95 Calcium 8.3 L Total Bilirubin 0.8 AST 25 ALT 24 Alkaline Phosphatase 65 Total Creatine Kinase CK-MB (Mass) Troponin I 0.0130 NT-Pro-B Natriuret Pep 215 Total Protein 6.7 Albumin 3.8 Globulin 2.9 Albumin/Globulin Ratio 1.3 Influenza Typ A,B (EIA) Negative for flu a/b 10/25/17 04:33 WBC RBC Hgb Hct MCV MCH MCHC RDW Plt Count MPV Neut % (Auto) Lymph % (Auto) [place] % (Auto) Eos % (Auto) Baso % (Auto) Neut # Lymph # [place] # Eos # Baso # Sodium Potassium Chloride Carbon Dioxide Anion Gap BUN Creatinine Est GFR ( Amer) Est GFR (Non-Af Amer) Random Glucose Calcium Total Bilirubin AST ALT Alkaline Phosphatase Total Creatine Kinase 54 L CK-MB (Mass) 2.17 Troponin I < 0.0120 NT-Pro-B Natriuret Pep Total Protein Albumin Globulin Albumin/Globulin Ratio Influenza Typ A,B (EIA) Assessment & Plan - Date & Time Date: 10/25/17 (I have seen and examined the patient. I agree with the findings and plan of care as documented by Dr. Gamez. Patient with Chest pain. ROMIx3 with EKG. Aspirin and Statin. Also with COPD exacerbation. Possible pneumonia. Azithromycin and Rocephin. Nebs, Solumedrol, and Oxygen. Monitor for acute changes.) Time: 06:29 Attending/Attestation - Attestation I have personally seen and examined this patient.: Yes I have fully participated in the care of the patient.: Yes I have reviewed all pertinent clinical information: Yes
[2017-10-25 04:59] LABS: CK-MB 2.17 ng/mL (0.0-3.38)
[2017-10-25] MEDS: Pantoprazole 40 mg EC Tab PO SCH (10:34)
[2017-10-25] MEDS: Enoxaparin 40 mg Syringe SC SCH (10:34)
[2017-10-25] MEDS: Azithromycin 500 MG in Sodium Chloride 0.9% 250 ML IVPB SCH (10:35)
--- NOTE | 2017-10-25 11:00 | RAD ---
PROCEDURE: CHEST RADIOGRAPH, 1 VIEW HISTORY: SOB COMPARISON: 04/21/2017. FINDINGS: LUNGS: The lungs are well inflated. There is left basilar atelectasis/ scarring. PLEURA: No pneumothorax or pleural fluid seen. CARDIOVASCULAR: Normal. OSSEOUS STRUCTURES: No significant abnormalities. VISUALIZED UPPER ABDOMEN: Normal. OTHER FINDINGS: None. IMPRESSION: No acute findings.
--- NOTE | 2017-10-25 11:19 | US ---
HISTORY: r/o inguinal hernia TECHNIQUE: Realtime sonography through the scrotum with color and doppler flow. COMPARISON: None Available. FINDINGS: RIGHT TESTICLE: Measures 4.0 x 1.3 x 2.7 cm. Normal echotexture and flow. RIGHT EPIDIDYMIS: Epididymal head measures 1.3 x 0.9 x 1.2 cm. Grossly unremarkable appearance with normal flow. LEFT TESTICLE: Measures 3.7 x 1.4 x 2.5 cm. Normal echotexture and flow. LEFT EPIDIDYMIS: Epididymal head measures 0.9 x 0.8 x 0.7 cm. Grossly unremarkable appearance with normal flow. HYDROCELE: None. VARICOCELE: None. OTHER FINDINGS: There are gas-filled bowel loops in the left inguinal canal. IMPRESSION: Left inguinal hernia. No evidence of testicular mass or torsion.
[2017-10-25 12:15] LABS: CK-MB 2.13 ng/mL (0.0-3.38)
--- NOTE | 2017-10-25 18:12 | CP.PCM.PN ---
Subjective - Date & Time of Evaluation Date of Evaluation: 10/25/17 Time of Evaluation: 15:00 - Subjective Subjective: Patient was seen and examined.He has cough with SOB.H/O Asthma and copd .Denies previous intubation c/o left groin pain when he cough,s/p BM,NOntender groin Objective - Vital Signs/Intake and Output Vital Signs (last 24 hours): Temp Pulse Resp BP Pulse Ox 98.3 F 110 H 20 137/80 96 10/25/17 15:54 10/25/17 15:54 10/25/17 15:54 10/25/17 15:54 10/25/17 15:54 Intake and Output: 10/25/17 10/25/17 06:59 18:59 Intake Total 240 710 Balance 240 710 - Medications Medications: Current Medications Albuterol/Ipratropium (Duoneb 3 Mg/0.5 Mg (3 Ml) Ud) 3 ml INH RQ6 PRN PRN Reason: Shortness of Breath Enoxaparin Sodium (Lovenox) 40 mg SC DAILY [facility] Last Admin: 10/25/17 10:34 Dose: 40 mg Azithromycin 500 mg/ Sodium (Chloride) 250 mls @ 250 mls/hr IVPB DAILY [facility] Last Admin: 10/25/17 10:35 Dose: 250 mls/hr Ceftriaxone Sodium 1 gm/ (Sodium Chloride) 100 mls @ 100 mls/hr IVPB DAILY [facility] Last Admin: 10/25/17 10:34 Dose: 100 mls/hr Methylprednisolone (Solu-Medrol) 60 mg IV Q6H [facility] Last Admin: 10/25/17 15:45 Dose: 60 mg Pantoprazole Sodium (Protonix Ec Tab) 40 mg PO DAILY [facility] Last Admin: 10/25/17 10:34 Dose: 40 mg Pneumococcal Polyvalent Vaccine (Pneumovax 23 Vaccine) 0.5 ml IM .ONCE ONE Stop: 10/27/17 10:01 - Labs Labs: 10/24/17 22:07 10/24/17 22:07 Assessment and Plan - Assessment and Plan (Free Text) Assessment: .Acute exacerbation of asthma with COPD 2.Left inguinal hernia-CT pelvis and US reports reviewed patient is moving her bowel,nontender on examination d/w Surgeon Dr Estrella 3.DM 4.Psoriasis 5.H/o PE,IVC filter and retroperitoneal hemorrhage
--- NOTE | 2017-10-25 20:21 | CP.PCM.CON ---
History of Present Illness - History of Present Illness History of Present Illness: General surgery consult for Dr. Kali Perkins, PGY-1 67M w/PMH sig for Left inguinal hernia consulted for Left inguinal hernia. pt recently discharged from [facility] for COPD exacerbation- while inpatient, pt was seen/evaluated by surgical service for inguinal hernia with recommendations for elective left inguinal hernia repair. pt reports that he presented to [facility] [place] for COPD/asthma exacerbation while walking outside one day prior to evaluation. Pt denies pain over left groin area, changes in bowel habits, abdominal pain, N & V, F & C, changes in urinary habits. PMH: COPD, DM, Asthma, PE (2015), retroperotineal hematoma (2015), psoriasis, Left inguinal hernia PSH: IVC filter (2015) All: NKDA SH: Admits to former tobacco use (30 pk yr hx)- quit 1 yr ago; former alcoholic , denies drug use. Currently homeless Review of Systems - Review of Systems All systems: reviewed and no additional remarkable complaints except - Constitutional Constitutional: absent: Chills, Fever - EENT Nose/Mouth/Throat: absent: Sore Throat - Cardiovascular Cardiovascular: absent: Chest Pain - Respiratory Respiratory: Cough, Dyspnea on Exertion, Wheezing - Gastrointestinal Gastrointestinal: absent: Abdominal Pain, Change in Bowel Habits, Constipation, Diarrhea, Hematemesis, Hematochezia, Nausea, Vomiting - Genitourinary Genitourinary: absent: Change in Urinary Stream - Musculoskeletal Musculoskeletal: absent: Numbness, Tingling - Integumentary Integumentary: absent: Rash - Neurological Neurological: absent: Weakness Past Patient History - Infectious Disease Hx of Infectious Diseases: None - Tetanus Immunizations Tetanus Immunization: Unknown - Past Medical History & Family History Past Medical History?: Yes - Past Social History Smoking Status: Former Smoker - CARDIAC Hx Congestive Heart Failure: Yes Hx Hypertension: Yes - PULMONARY Hx Chronic Obstructive Pulmonary Disease (COPD): Yes - NEUROLOGICAL Hx Neurological Disorder: No - HEENT Hx HEENT Problems: No - RENAL Hx Chronic Kidney Disease: No - ENDOCRINE/METABOLIC Hx Diabetes Mellitus Type 2: Yes - HEMATOLOGICAL/ONCOLOGICAL Hx Human Immunodeficiency Virus (HIV): No - INTEGUMENTARY Hx Dermatological Problems: Yes (GENERALIZED SKIN PSORIASIS) Hx Psoriasis: Yes - MUSCULOSKELETAL/RHEUMATOLOGICAL Hx Musculoskeletal Disorders: No Hx Falls: No - GASTROINTESTINAL Hx Gastrointestinal Disorders: Yes Other/Comment: GI bleeding - GENITOURINARY/GYNECOLOGICAL Hx Genitourinary Disorders: No - PSYCHIATRIC Hx Substance Use: No - SURGICAL HISTORY Other/Comment: IVC Filter - ANESTHESIA Hx Anesthesia: Yes Hx Anesthesia Reactions: No Hx Malignant Hyperthermia: No Has any member of the family had a problem w/ anesthesia?: No Meds Allergies/Adverse Reactions: Allergies Allergy/AdvReac Type Severity Reaction Status Date / Time No Known Allergies Allergy Verified 10/24/17 21:54 - Medications Medications: Current Medications Albuterol/Ipratropium (Duoneb 3 Mg/0.5 Mg (3 Ml) Ud) 3 ml INH RQ6 PRN PRN Reason: Shortness of Breath Last Admin: 10/25/17 18:46 Dose: 3 ml Enoxaparin Sodium (Lovenox) 40 mg SC DAILY [facility] Last Admin: 10/25/17 10:34 Dose: 40 mg Azithromycin 500 mg/ Sodium (Chloride) 250 mls @ 250 mls/hr IVPB DAILY [facility] Last Admin: 10/25/17 10:35 Dose: 250 mls/hr Ceftriaxone Sodium 1 gm/ (Sodium Chloride) 100 mls @ 100 mls/hr IVPB DAILY [facility] Last Admin: 10/25/17 10:34 Dose: 100 mls/hr Methylprednisolone (Solu-Medrol) 60 mg IV Q6H [facility] Last Admin: 10/25/17 15:45 Dose: 60 mg Pantoprazole Sodium (Protonix Ec Tab) 40 mg PO DAILY [facility] Last Admin: 10/25/17 10:34 Dose: 40 mg Pneumococcal Polyvalent Vaccine (Pneumovax 23 Vaccine) 0.5 ml IM .ONCE ONE Stop: 10/27/17 10:01 Physical Exam - Constitutional Appears: Non-toxic, No Acute Distress - Head Exam Head Exam: ATRAUMATIC, NORMAL INSPECTION, NORMOCEPHALIC - Eye Exam Eye Exam: EOMI, Normal appearance - ENT Exam ENT Exam: Mucous Membranes Moist, Normal Exam - Neck Exam Neck exam: Positive for: Full Rom, Normal Inspection - Respiratory Exam Respiratory Exam: NORMAL BREATHING PATTERN - Cardiovascular Exam Cardiovascular Exam: REGULAR RHYTHM, +S1, +S2 - GI/Abdominal Exam GI & Abdominal Exam: Hernia (left inguinal- reducible, mildly tender on deep palpation, non strangulated, non incarcerated), Normal Bowel Sounds, Soft. absent: Distended, Firm, Guarding, Rebound, Rigid, Tenderness - Extremities Exam Extremities exam: Positive for: normal inspection - Neurological Exam Neurological exam: Alert, CN II-XII Intact, Oriented x3 - Psychiatric Exam Psychiatric exam: Normal Affect, Normal Mood - Skin Skin Exam: Dry, Intact, Normal Color, Warm Results - Vital Signs Recent Vital Signs: Last Vital Signs Temp 98.3 F 10/25/17 15:54 Pulse 108 H 10/25/17 18:30 Resp 20 10/25/17 15:54 BP 137/80 10/25/17 15:54 Pulse Ox 96 10/25/17 15:54 - Labs Result Diagrams: 10/24/17 22:07 10/24/17 22:07 Labs: Laboratory Results - last 24 hr 10/24/17 10/24/17 10/24/17 21:56 22:07 22:07 WBC 14.1 H RBC 4.63 Hgb 13.4 Hct 39.6 MCV 85.5 MCH 29.0 MCHC 33.9 RDW 16.2 H Plt Count 201 MPV 8.7 Neut % (Auto) 66.3 Lymph % (Auto) 21.5 Lane % (Auto) 10.1 H Eos % (Auto) 1.6 Baso % (Auto) 0.5 Neut # 9.4 H Lymph # 3.0 Lane # 1.4 H Eos # 0.2 Baso # 0.1 Sodium 133 Potassium 4.3 Chloride 100 Carbon Dioxide 26 Anion Gap 11 BUN 20 Creatinine 1.1 Est GFR ( Amer) > 60 Est GFR (Non-Af Amer) > 60 POC Glucose (mg/dL) Random Glucose 95 Calcium 8.3 L Total Bilirubin 0.8 AST 25 ALT 24 Alkaline Phosphatase 65 Total Creatine Kinase CK-MB (Mass) Troponin I 0.0130 NT-Pro-B Natriuret Pep 215 Total Protein 6.7 Albumin 3.8 Globulin 2.9 Albumin/Globulin Ratio 1.3 Influenza Typ A,B (EIA) Negative for flu a/b 10/25/17 10/25/17 10/25/17 04:33 07:36 11:24 WBC RBC Hgb Hct MCV MCH MCHC RDW Plt Count MPV Neut % (Auto) Lymph % (Auto) Lane % (Auto) Eos % (Auto) Baso % (Auto) Neut # Lymph # Lane # Eos # Baso # Sodium Potassium Chloride Carbon Dioxide Anion Gap BUN Creatinine Est GFR ( Amer) Est GFR (Non-Af Amer) POC Glucose (mg/dL) 260 H 196 H Random Glucose Calcium Total Bilirubin AST ALT Alkaline Phosphatase Total Creatine Kinase 54 L CK-MB (Mass) 2.17 Troponin I < 0.0120 NT-Pro-B Natriuret Pep Total Protein Albumin Globulin Albumin/Globulin Ratio Influenza Typ A,B (EIA) 10/25/17 10/25/17 11:30 16:15 WBC RBC Hgb Hct MCV MCH MCHC RDW Plt Count MPV Neut % (Auto) Lymph % (Auto) Lane % (Auto) Eos % (Auto) Baso % (Auto) Neut # Lymph # Lane # Eos # Baso # Sodium Potassium Chloride Carbon Dioxide Anion Gap BUN Creatinine Est GFR ( Amer) Est GFR (Non-Af Amer) POC Glucose (mg/dL) 190 H Random Glucose Calcium Total Bilirubin AST ALT Alkaline Phosphatase Total Creatine Kinase 66 CK-MB (Mass) 2.13 Troponin I < 0.0120 NT-Pro-B Natriuret Pep Total Protein Albumin Globulin Albumin/Globulin Ratio Influenza Typ A,B (EIA) Assessment & Plan - Assessment and Plan (Free Text) Assessment: 67M w/PMH sig for left inguinal hernia- hernia not incarcerated or strangulated , is reducible, minimal pain Plan: Pt had pre- op testing done on previous hospital stay at [place] Likely will have pt follow up outpatient for elective surgical repair of Left inguinal hernia Further recs as per attending ALONZO attending Maddie, PGY-1 - Date & Time Date: 10/25/17 Time: 17:00
--- NOTE | 2017-10-26 07:23 | CP.PCM.PN ---
Subjective - Date & Time of Evaluation Date of Evaluation: 10/26/17 Time of Evaluation: 07:21 - Subjective Subjective: General Surgery: Dr Estrella Pt S&E. GABY. Hernia remains reducible and asymptomatic. Tolerating diet, regular BMs, being treated for COPD exacerbation Objective - Vital Signs/Intake and Output Vital Signs (last 24 hours): Temp Pulse Resp BP Pulse Ox 97.3 F L 107 H 20 163/80 H 95 10/25/17 23:15 10/25/17 23:25 10/25/17 23:15 10/25/17 23:15 10/25/17 23:15 - Medications Medications: Current Medications Albuterol/Ipratropium (Duoneb 3 Mg/0.5 Mg (3 Ml) Ud) 3 ml INH RQ6 PRN PRN Reason: Shortness of Breath Last Admin: 10/25/17 18:46 Dose: 3 ml Enoxaparin Sodium (Lovenox) 40 mg SC DAILY [facility] Last Admin: 10/25/17 10:34 Dose: 40 mg Azithromycin 500 mg/ Sodium (Chloride) 250 mls @ 250 mls/hr IVPB DAILY [facility] Last Admin: 10/25/17 10:35 Dose: 250 mls/hr Ceftriaxone Sodium 1 gm/ (Sodium Chloride) 100 mls @ 100 mls/hr IVPB DAILY [facility] Last Admin: 10/25/17 10:34 Dose: 100 mls/hr Methylprednisolone (Solu-Medrol) 60 mg IV Q6H [facility] Last Admin: 10/26/17 04:30 Dose: 60 mg Pantoprazole Sodium (Protonix Ec Tab) 40 mg PO DAILY [facility] Last Admin: 10/25/17 10:34 Dose: 40 mg Pneumococcal Polyvalent Vaccine (Pneumovax 23 Vaccine) 0.5 ml IM .ONCE ONE Stop: 10/27/17 10:01 - Labs Labs: 10/24/17 22:07 10/24/17 22:07 - Constitutional Appears: Non-toxic, No Acute Distress - ENT Exam ENT Exam: Mucous Membranes Moist - Respiratory Exam Respiratory Exam: absent: Respiratory Distress - Cardiovascular Exam Cardiovascular Exam: Tachycardia, REGULAR RHYTHM - GI/Abdominal Exam GI & Abdominal Exam: Soft, Hernia (LIH reducible). absent: Distended, Firm, Guarding, Rigid, Tenderness - Neurological Exam Neurological Exam: Alert, Awake Assessment and Plan - Assessment and Plan (Free Text) Assessment: 67M with LIH being treated for COPD exacerbation Plan: all pre-op testing completed last admission at [facility] pt is being seen in clinic for outpatient elective hernia repair cont txt of COPD exacerbation per primary team f/u in clinic with Dr Estrella for ELECTIVE repair when optimized d/w Dr Sameer Teran, PGY3
[2017-10-26 08:42] LABS: BASO % 0.1 % (0.0-2.0); HEMOGLOBIN 11.8 g/dL (12.0-18.0); LYMPH # 0.7 K/uL (1.0-4.3); LYMPH % 2.9 % (20.0-40.0); MEAN CELL VOLUME 85.9 fL (80.0-94.0); MEAN CORPUSCULAR HEMOGLOBIN 29.1 pg (27.0-31.0); MEAN CORPUSCULAR HGB CONC 33.9 g/dL (33.0-37.0); MEAN PLATELET VOLUME 9.1 fL (7.2-11.7); MONO # 0.8 K/uL (0.0-0.8); MONO % 3.1 % (0.0-10.0); NEUT # 23.4 K/uL (1.8-7.0); NEUT % 93.9 % (50.0-75.0); PLATELET COUNT 195 K/uL (130-400); RBC 4.05 Mil/uL (4.40-5.90); RED CELL DISTRIBUTION WIDTH 16.1 % (11.5-14.5)
[2017-10-26 08:43] LABS: WHITE BLOOD COUNT 24.9 K/uL (4.8-10.8)
[2017-10-26 09:07] LABS: ALB/GLOB RATIO 1.1 (1.0-2.1); ALBUMIN 3.3 g/dL (3.5-5.0); ALT/SGPT 19 U/L (21-72); AST/SGOT 25 U/L (17-59); BLOOD UREA NITROGEN 30 mg/dL (9-20); CALCIUM 8.3 mg/dl (8.6-10.4); GFR AFRICAN-AMERICAN > 60; GFR NON-AFRICAN AMERICAN > 60
[2017-10-26 09:25] LABS: BANDS 1 % (0-2); LYMPHOCYTE 3 % (20-40); TOTAL CELLS COUNTED 100
[2017-10-26 09:26] LABS: ANISOCYTOSIS SLIGHT; HYPOCHROMIC SLIGHT; MONOCYTE 3 % (0-10); NEUTROPHIL 93 % (50-75); PLATELET ESTIMATE NORMAL (NORMAL)
[2017-10-26 09:27] LABS: OVALOCYTES SLIGHT; TEARDROP CELLS SLIGHT
[2017-10-26] MEDS: Enoxaparin 40 mg Syringe SC SCH (09:55)
[2017-10-26] MEDS: Pantoprazole 40 mg EC Tab PO SCH (09:56)
--- NOTE | 2017-10-26 10:54 | CP.PCM.PN ---
<Dallas Rueda - Last Filed: 10/26/17 10:51> Subjective - Date & Time of Evaluation Date of Evaluation: 10/26/17 Time of Evaluation: 10:51 - Subjective Subjective: Progress note for Dr. Baird's Service Pt seen and examined at bedside. He reports that he continues to feel "sick". During exam the pt is continuously coughing. He reports chest pain with the cough. He denies fevers, chills, nausea, vomiting, diarrhea, constipation. He does become short of breath when he coughs excessively. No other acute events reported overnight. Objective - Vital Signs/Intake and Output Vital Signs (last 24 hours): Temp Pulse Resp BP Pulse Ox 97.6 F 97 H 20 153/73 H 97 10/26/17 07:41 10/26/17 08:00 10/26/17 07:41 10/26/17 07:41 10/26/17 07:41 - Medications Medications: Current Medications Albuterol/Ipratropium (Duoneb 3 Mg/0.5 Mg (3 Ml) Ud) 3 ml INH RQ6 PRN PRN Reason: Shortness of Breath Last Admin: 10/25/17 18:46 Dose: 3 ml Enoxaparin Sodium (Lovenox) 40 mg SC DAILY [facility] Last Admin: 10/26/17 09:55 Dose: 40 mg Azithromycin 500 mg/ Sodium (Chloride) 250 mls @ 250 mls/hr IVPB DAILY [facility] Last Admin: 10/25/17 10:35 Dose: 250 mls/hr Ceftriaxone Sodium 1 gm/ (Sodium Chloride) 100 mls @ 100 mls/hr IVPB DAILY [facility] Last Admin: 10/26/17 09:56 Dose: 100 mls/hr Methylprednisolone (Solu-Medrol) 60 mg IV Q6H [facility] Last Admin: 10/26/17 09:55 Dose: 60 mg Pantoprazole Sodium (Protonix Ec Tab) 40 mg PO DAILY [facility] Last Admin: 10/26/17 09:56 Dose: 40 mg Pneumococcal Polyvalent Vaccine (Pneumovax 23 Vaccine) 0.5 ml IM .ONCE ONE Stop: 10/27/17 10:01 - Labs Labs: 10/26/17 08:27 10/26/17 08:27 - Constitutional Appears: No Acute Distress - Head Exam Head Exam: ATRAUMATIC, NORMOCEPHALIC - Eye Exam Eye Exam: EOMI - Respiratory Exam Respiratory Exam: Rhonchi, Wheezes Additional comments: diffuse coarse breath sounds coughing with deep inspiration - Cardiovascular Exam Cardiovascular Exam: REGULAR RHYTHM, +S1, +S2 - GI/Abdominal Exam GI & Abdominal Exam: Soft. absent: Tenderness - Neurological Exam Neurological Exam: Alert, Awake, Oriented x3 - Psychiatric Exam Psychiatric exam: Normal Affect, Normal Mood - Skin Skin Exam: Dry, Warm Assessment and Plan - Assessment and Plan (Free Text) Plan: COPD exacerbation CXR--no active disease Duoneb Q6 prn Solumedrol 60 mg IV Q6 Azithromycin 500 mg IV daily Ceftriaxone 1 gm IV daily f/u blood cultures Chest pain is likely a manifestation of excessive coughing MARINA negative x3 WBC 24.9 10/26/2017 may be a manifestation of steroids continue to trend afebrile Consider atypical pneumonia History of Diabetes Hemoglobin A1c 10/11/17 was 6.2 Accuchecks and monitor for now History of PE IVC 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 Baird <Mansi Baird - Last Filed: 10/26/17 17:41> Objective - Vital Signs/Intake and Output Vital Signs (last 24 hours): Temp Pulse Resp BP Pulse Ox 98.4 F 95 H 20 149/79 95 10/26/17 15:14 10/26/17 16:00 10/26/17 15:14 10/26/17 15:14 10/26/17 15:14 Intake and Output: 10/26/17 10/26/17 06:59 18:59 Intake Total 750 Balance 750 - Medications Medications: Current Medications Albuterol/Ipratropium (Duoneb 3 Mg/0.5 Mg (3 Ml) Ud) 3 ml INH RQ6 [facility] Last Admin: 10/26/17 16:04 Dose: 3 ml Enoxaparin Sodium (Lovenox) 40 mg SC DAILY [facility] Last Admin: 10/26/17 09:55 Dose: 40 mg Glipizide (Glucotrol Xl) 5 mg PO DAILY [facility] Guaifenesin/Dextromethorphan (Diabetic Tussin) 15 ml PO TID [facility] Last Admin: 10/26/17 14:40 Dose: 15 ml Azithromycin 500 mg/ Sodium (Chloride) 250 mls @ 250 mls/hr IVPB DAILY [facility] Last Admin: 10/26/17 10:57 Dose: 250 mls/hr Ceftriaxone Sodium 1 gm/ (Sodium Chloride) 100 mls @ 100 mls/hr IVPB DAILY [facility] Last Admin: 10/26/17 09:56 Dose: 100 mls/hr Insulin Human Regular (Novolin R) 0 unit SC ACHS [facility] PRN Reason: Protocol Methylprednisolone (Solu-Medrol) 40 mg IV Q6H [facility] Last Admin: 10/26/17 13:47 Dose: 40 mg Pantoprazole Sodium (Protonix Ec Tab) 40 mg PO DAILY [facility] Last Admin: 10/26/17 09:56 Dose: 40 mg Pneumococcal Polyvalent Vaccine (Pneumovax 23 Vaccine) 0.5 ml IM .ONCE ONE Stop: 10/27/17 10:01 - Labs Labs: 10/26/17 08:27 10/26/17 08:27 Attending/Attestation - Attestation I have personally seen and examined this patient.: Yes I have fully participated in the care of the patient.: Yes I have reviewed all pertinent clinical information, including history, physical exam and plan: Yes Notes (Text): Patient was seen and examined has cough and wheezing,Not in distress,mild sob,no fever ct chest done shows emphysema 1.Acute exacerbation of ASthma and copd 2.DM 3.h/o PE,IVC filter,Retroperitoneal bleeding 4.Psoriasis continue duoneb,solumedrol,zithromax and ceftriaxone d/w the resident I agree with the documentation of the assessment and the plan
[2017-10-26] MEDS: Azithromycin 500 MG in Sodium Chloride 0.9% 250 ML IVPB SCH (10:57)
[2017-10-26] MEDS: MethylPREDNISolone 40 mg Vial IV SCH ×3 (13:47→23:54)
[2017-10-26] MEDS: GUAIFENESIN DM PO SCH ×2 (14:40→18:16)
--- NOTE | 2017-10-26 15:09 | CT ---
PROCEDURE: CT Chest without contrast HISTORY: Chest pain COMPARISON: None. TECHNIQUE: Contiguous axial images were obtained through the chest without intravenous contrast enhancement. Sagittal and coronal reconstructions were performed. Radiation dose (DLP): 668.23 mGy-cm. This CT exam was performed using one or more of the following dose reduction techniques: Automated exposure control, adjustment of the mA and/or kV according to patient size, and/or use of iterative reconstruction technique. FINDINGS: LUNGS: There is a bilateral upper lobe paraseptal emphysema, worse on the right. There is mild diffuse centrilobular emphysema. There is subsegmental atelectasis in the medial segment of the right middle lobe and lingula. There is dependent atelectasis in the right lung base. There are no endobronchial lesions. No evidence of mass, consolidation or nodules. MEDIASTINUM: The heart is normal in size. No pericardial effusion. No bulky pathologic lymphadenopathy. PLEURA: No pleural fluid. No pneumothorax. BONES: There is an age indeterminate mild superior endplate compression deformity in 1 of the upper thoracic vertebral bodies. Multilevel degenerative disc disease. No destructive bony lesion. UPPER ABDOMEN: An infrarenal IVC filter remains in place. There is ingested material in the stomach. The liver and adrenal glands are grossly normal. The gallbladder is contracted. OTHER FINDINGS: None. IMPRESSION: 1. Paraseptal emphysema in the upper lobes, worse on the right and mild centrilobular emphysema in the lungs. No pneumothorax. 2. No evidence of consolidation or pleural effusion.
[2017-10-26] MEDS: Albuterol-Ipratrop 3 mg / 0.5 (3 ml) UD INH SCH ×2 (16:04→19:29)
[2017-10-26] MEDS: (Novolin R) Insulin Human Regular 100 units/ml vial SC SCH ×2 (18:16→21:48)
[2017-10-27] MEDS: Albuterol-Ipratrop 3 mg / 0.5 (3 ml) UD INH SCH ×3 (01:13→12:05)
[2017-10-27] MEDS: MethylPREDNISolone 40 mg Vial IV SCH ×4 (06:14→22:55)
[2017-10-27 07:34] LABS: HEMOGLOBIN 11.8 g/dL (12.0-18.0); LYMPH # 0.7 K/uL (1.0-4.3); LYMPH % 3.2 % (20.0-40.0); MEAN CELL VOLUME 85.5 fL (80.0-94.0); MEAN CORPUSCULAR HEMOGLOBIN 28.6 pg (27.0-31.0); MEAN CORPUSCULAR HGB CONC 33.4 g/dL (33.0-37.0); MEAN PLATELET VOLUME 9.3 fL (7.2-11.7); MONO # 0.8 K/uL (0.0-0.8); MONO % 3.6 % (0.0-10.0); NEUT # 21.3 K/uL (1.8-7.0); NEUT % 93.2 % (50.0-75.0); PLATELET COUNT 201 K/uL (130-400); RBC 4.12 Mil/uL (4.40-5.90); RED CELL DISTRIBUTION WIDTH 15.9 % (11.5-14.5); WHITE BLOOD COUNT 22.9 K/uL (4.8-10.8)
[2017-10-27 08:32] LABS: ALB/GLOB RATIO 1.1 (1.0-2.1); ALBUMIN 3.3 g/dL (3.5-5.0); ALT/SGPT 19 U/L (21-72); AST/SGOT 18 U/L (17-59); BLOOD UREA NITROGEN 33 mg/dL (9-20); CALCIUM 8.2 mg/dl (8.6-10.4); GFR AFRICAN-AMERICAN > 60; GFR NON-AFRICAN AMERICAN > 60
[2017-10-27] MEDS: (Novolin R) Insulin Human Regular 100 units/ml vial SC SCH ×4 (08:50→21:23)
[2017-10-27] MEDS: Pantoprazole 40 mg EC Tab PO SCH (09:24)
[2017-10-27] MEDS: GlipiZIDE 5 mg SR Tab PO SCH (09:24)
[2017-10-27] MEDS: Enoxaparin 40 mg Syringe SC SCH (09:25)
[2017-10-27] MEDS: GUAIFENESIN DM PO SCH (09:25)
[2017-10-27] MEDS ORDERED: Pneumococcal 23-Valent Vaccine IM ONE (10:00)
[2017-10-27] MEDS ORDERED: Influenza Vaccine 60 mcg/0.5 mL SYR (4YR UP) IM ONE (10:00)
[2017-10-27 10:19] LABS: BANDS 2 % (0-2); LYMPHOCYTE 2 % (20-40); MONOCYTE 3 % (0-10); NEUTROPHIL 93 % (50-75); PLATELET ESTIMATE NORMAL (NORMAL); TOTAL CELLS COUNTED 100
[2017-10-27 10:20] LABS: ANISOCYTOSIS SLIGHT; HYPOCHROMIC SLIGHT; LARGE PLATELETS PRESENT; POLYCHROMIC SLIGHT; TOXIC GRANULATION PRESENT
--- NOTE | 2017-10-27 10:38 | RAD ---
HISTORY: COMPARISON: 10/24/2017 TECHNIQUE: Chest PA and lateral FINDINGS: LINES AND TUBES: None. LUNG AND PLEURA: The lungs are well inflated. There is bilateral lower lobe atelectasis. No focal consolidation. HEART AND MEDIASTINUM: The heart is not enlarged. The hilar and mediastinal contours are within normal limits. SKELETAL STRUCTURES: The bony structures are within normal limits for the patient's age. VISUALIZED UPPER ABDOMEN: Normal. OTHER FINDINGS: None. IMPRESSION: Both lower lobe atelectasis. No lobar pneumonia.
--- NOTE | 2017-10-27 10:54 | CP.PCM.PN ---
<Mariaelena Adames V - Last Filed: 10/27/17 14:13> Objective - Vital Signs/Intake and Output Vital Signs (last 24 hours): Temp Pulse Resp BP Pulse Ox 97.8 F 74 18 143/67 95 10/27/17 07:55 10/27/17 07:55 10/27/17 07:55 10/27/17 07:55 10/27/17 07:55 - Medications Medications: Current Medications Albuterol/Ipratropium (Duoneb 3 Mg/0.5 Mg (3 Ml) Ud) 3 ml INH RQ4 [facility] Last Admin: 10/27/17 12:05 Dose: 3 ml Enoxaparin Sodium (Lovenox) 40 mg SC DAILY [facility] Last Admin: 10/27/17 09:25 Dose: 40 mg Glipizide (Glucotrol Xl) 5 mg PO DAILY [facility] Last Admin: 10/27/17 09:24 Dose: 5 mg Guaifenesin (Mucinex La) 600 mg PO BID [facility] Azithromycin 500 mg/ Sodium (Chloride) 250 mls @ 250 mls/hr IVPB DAILY [facility] Last Admin: 10/27/17 10:55 Dose: 250 mls/hr Ceftriaxone Sodium 1 gm/ (Sodium Chloride) 100 mls @ 100 mls/hr IVPB DAILY [facility] Last Admin: 10/27/17 09:24 Dose: 100 mls/hr Insulin Human Regular (Novolin R) 0 unit SC ACHS [facility] PRN Reason: Protocol Last Admin: 10/27/17 12:53 Dose: 4 unit Methylprednisolone (Solu-Medrol) 40 mg IV Q6H [facility] Last Admin: 10/27/17 12:52 Dose: 40 mg Pantoprazole Sodium (Protonix Ec Tab) 40 mg PO DAILY [facility] Last Admin: 10/27/17 09:24 Dose: 40 mg Promethazine HCl/Codeine (Phenergan/Codeine Oral Syrup) 5 ml PO Q4 PRN PRN Reason: Cough Fluticasone/Salmeterol (Advair Diskus 250/50) 1 puff INH RQ12 [facility] - Labs Labs: 10/27/17 07:18 10/27/17 07:18 Attending/Attestation - Attestation I have personally seen and examined this patient.: Yes I have fully participated in the care of the patient.: Yes I have reviewed all pertinent clinical information, including history, physical exam and plan: Yes Notes (Text): Patient seen, examined and case discussed with day-time resident. Patient reports he was coughing up all night with yellow-green sputum. Patient reports he stopped smoking 2 months ago, but first started at age 15. patient had receive Duoneb prior to my arrival. Changed duonebs to q 4hours. Will add Advair 250/50 1 puff Q12BID. Will titrate down Solumedrol 40mg IV Q8H. Start on incentive spirometry. Added Mucinex to thin out secretions and Promethazine w codeine PRN cough. Assessment/Plan 1) COPD exacerbation Atelectasis * CXR--no active disease * Pulmonary consult * Start Duoneb Q4 scheduled * Start Advair 250/50 1 puff Q12H * Lower Solumedrol 40 mg IV Q8H * Start Promethazine w codeine 5ml PO Q4H PRN cough * Start incentive spirometry * Mucinex 600mg PO BID * CT Chest (10/26/17): paraseptal emphysema in upper lobes, worse on the right and mild centrilobular emphysema in the lungs. No pneumothorax. No evidence of consolidation or pleural effusion * IV Abx: Azithromycin 500 mg IV daily and Ceftriaxone 1 gm IV daily to cover for community acquired pneumonia-->will consider discontinue IV abx since there is no infiltrate identified on CT chest but awaiting procalcitonin giving leukocytosis 2) History of Diabetes (controlled) * Hemoglobin A1c 10/11/17 was 6.2 * Accuchecks AC and HS * Glipizde 5mg PO daily * will increase regular insulin sliding scale coverage in light of 240-300 sugars * Start Lantus 10 units subqHS 3) History of PE * IVC filter in place * Patient is not on any therapuetic anticoagulation secondary to history of retroperitoneal bleed * CT Chest (10/26/17): paraseptal emphysema in uppper lobes, worse on the right and mild centrilobular emphysema in the lungs. No pneumothorax. No evidence of consolidation or pleural effusion. 4) Leukocytosis * likely secondary to steroids * Ordered for procalcitonin r/o infection 5) History of Left Inguinal Hernia * Ultrasound evaluation confirms * Evaluated by surgery-->Will need outpatient follow up for repair 6) Tobacco Abuse * Quit 2 months ago, prior smoking since age 13 * Start Nictone patch q daily 7) Prophylactic Measures * Protonix 40 PO daily * SCDs * Lovenox 40mg SC daily * Heart Healthy Diet with moderate consistent CHO * IVC filter * Florastor 250mg PO BID * Physical therapy eval Disposition: f/u pulmonary evaluation. Patient has profuse rhonchi over right upper lobe which is consistent with cough. pending procalcitonin and blood culture. Patient status changed to dyspnea on exertion requiring IV steroids. <Jesse Gamez - Last Filed: 10/27/17 17:23> Subjective - Date & Time of Evaluation Date of Evaluation: 10/27/17 Time of Evaluation: 08:00 - Subjective Subjective: Medicine progress note for Dr. Adames Patient seen and examined at bedside. Patient reports that last night he was particularly short of breath but this resolved after a breathing treatment. Patient states that he is doing fine this morning and has no acute complaints. Objective - Vital Signs/Intake and Output Vital Signs (last 24 hours): Temp Pulse Resp BP Pulse Ox 97.8 F 74 18 143/67 95 10/27/17 07:55 10/27/17 07:55 10/27/17 07:55 10/27/17 07:55 10/27/17 07:55 - Medications Medications: Current Medications Albuterol/Ipratropium (Duoneb 3 Mg/0.5 Mg (3 Ml) Ud) 3 ml INH RQ6 [facility] Last Admin: 10/27/17 07:27 Dose: 3 ml Enoxaparin Sodium (Lovenox) 40 mg SC DAILY [facility] Last Admin: 10/27/17 09:25 Dose: 40 mg Glipizide (Glucotrol Xl) 5 mg PO DAILY [facility] Guaifenesin/Dextromethorphan (Diabetic Tussin) 15 ml PO TID [facility] Last Admin: 10/27/17 09:25 Dose: 15 ml Azithromycin 500 mg/ Sodium (Chloride) 250 mls @ 250 mls/hr IVPB DAILY [facility] Last Admin: 10/26/17 10:57 Dose: 250 mls/hr Ceftriaxone Sodium 1 gm/ (Sodium Chloride) 100 mls @ 100 mls/hr IVPB DAILY [facility] Last Admin: 10/27/17 09:24 Dose: 100 mls/hr Insulin Human Regular (Novolin R) 0 unit SC ACHS [facility] PRN Reason: Protocol Last Admin: 10/27/17 08:50 Dose: 3 unit Methylprednisolone (Solu-Medrol) 40 mg IV Q6H [facility] Last Admin: 10/27/17 06:14 Dose: 40 mg Pantoprazole Sodium (Protonix Ec Tab) 40 mg PO DAILY [facility] Last Admin: 10/26/17 09:56 Dose: 40 mg - Labs Labs: 10/27/17 07:18 10/27/17 07:18 - Constitutional Appears: No Acute Distress - Head Exam Head Exam: ATRAUMATIC, NORMOCEPHALIC - Eye Exam Eye Exam: EOMI, Normal appearance - ENT Exam ENT Exam: Mucous Membranes Moist - Respiratory Exam Respiratory Exam: Wheezes (bilaterally but more pronounced in left upper lung field), NORMAL BREATHING PATTERN. absent: Accessory Muscle Use, Rales, Rhonchi - Cardiovascular Exam Cardiovascular Exam: REGULAR RHYTHM, +S1, +S2 - GI/Abdominal Exam GI & Abdominal Exam: Soft, Normal Bowel Sounds. absent: Tenderness - Extremities Exam Additional comments: extensive lichenification of bilateral legs - Neurological Exam Neurological Exam: Alert, Awake, Oriented x3 - Psychiatric Exam Psychiatric exam: Normal Affect, Normal Mood - Skin Skin Exam: Dry, Warm Assessment and Plan - Assessment and Plan (Free Text) Plan: COPD exacerbation CXR--no active disease Duoneb Q4 [facility] Solumedrol 40 mg IV Q6 Advair 250/50 Q12 Azithromycin 500 mg IV daily Ceftriaxone 1 gm IV daily f/u blood cultures Chest pain is likely a manifestation of excessive coughing MARINA negative x3 WBC 24.9 10/26/2017---22.9 on 10/27 may be a manifestation of steroids continue to trend afebrile Pulm consulted, Dr. Hernández--help appreciated History of Diabetes Hemoglobin A1c 10/11/17 was 6.2 Accuchecks and monitor for now History of PE IVC filter in place Lovenox 40mg SC daily Left Inguinal Hernia Confirmed by ultrasound Evaluated by surgery Will need outpatient follow up for repair no acute interventions Prophylactic Measures Protonix 40 PO daily SCDs Lovenox 40mg SC daily Heart Healthy Diet with moderate consistent CHO Lac-Hydrin topical for psoriasis on the legs Case DW Dr. Rosangela Gamez PGY-1
[2017-10-27] MEDS: Azithromycin 500 MG in Sodium Chloride 0.9% 250 ML IVPB SCH (10:55)
[2017-10-27] MEDS ORDERED: GUAIFENESIN DM PO PRN (14:00)
[2017-10-27] MEDS ORDERED: Promethazine/Cod 6.25mg-10mg/5ml Syr UD PO PRN (14:14)
[2017-10-27 16:08] VITALS: RESP 20
[2017-10-27] MEDS: guaiFENesin 600 mg ER Tab PO SCH (17:12)
[2017-10-27] MEDS: Saccharomyces Boulardi 250 mg Cap PO SCH (17:12)
[2017-10-27] MEDS: Ammonium Lactate 12% Lotion (225 g) EXT SCH (19:14)
[2017-10-27] MEDS: (Lantus) Insulin Glargine, Recombinant SC SCH (21:36)
[2017-10-28] MEDS: Albuterol-Ipratrop 3 mg / 0.5 (3 ml) UD INH SCH ×6 (00:26→23:49)
[2017-10-28] MEDS: MethylPREDNISolone 40 mg Vial IV SCH ×3 (06:11→21:57)
[2017-10-28 08:02] LABS: BASO % 0.1 % (0.0-2.0); HEMOGLOBIN 11.6 g/dL (12.0-18.0); LYMPH # 0.8 K/uL (1.0-4.3); LYMPH % 4.6 % (20.0-40.0); MEAN CELL VOLUME 85.1 fL (80.0-94.0); MEAN CORPUSCULAR HEMOGLOBIN 27.8 pg (27.0-31.0); MEAN CORPUSCULAR HGB CONC 32.7 g/dL (33.0-37.0); MEAN PLATELET VOLUME 9.5 fL (7.2-11.7); MONO # 0.7 K/uL (0.0-0.8); MONO % 3.9 % (0.0-10.0); NEUT # 16.4 K/uL (1.8-7.0); NEUT % 91.4 % (50.0-75.0); PLATELET COUNT 197 K/uL (130-400); RBC 4.16 Mil/uL (4.40-5.90); RED CELL DISTRIBUTION WIDTH 16.4 % (11.5-14.5)
[2017-10-28] MEDS: Fluticasone-Salmeterol 250-50mcg Diskus INH SCH ×2 (08:32→22:37)
[2017-10-28 08:42] LABS: ALB/GLOB RATIO 1.1 (1.0-2.1); ALBUMIN 2.9 g/dL (3.5-5.0); ALT/SGPT 26 U/L (21-72); AST/SGOT 17 U/L (17-59); BLOOD UREA NITROGEN 31 mg/dL (9-20); CALCIUM 7.9 mg/dl (8.6-10.4); GFR AFRICAN-AMERICAN > 60; GFR NON-AFRICAN AMERICAN > 60; MAGNESIUM 1.3 mg/dL (1.6-2.3)
[2017-10-28] MEDS: (Novolin R) Insulin Human Regular 100 units/ml vial SC SCH ×4 (08:55→21:24)
[2017-10-28] MEDS ORDERED: Magnesium Sulfate 1 gm in D5W 1 GM/100 ML BAG IVPB ONE (09:27)
[2017-10-28 09:33] LABS: ANISOCYTOSIS SLIGHT; BANDS 1 % (0-2); HYPOCHROMIC SLIGHT; LYMPHOCYTE 4 % (20-40); MONOCYTE 3 % (0-10); NEUTROPHIL 92 % (50-75); PLATELET ESTIMATE NORMAL (NORMAL); POIKILOCYTOSIS SLIGHT; TOTAL CELLS COUNTED 100
[2017-10-28] MEDS: Enoxaparin 40 mg Syringe SC SCH (09:34)
[2017-10-28] MEDS: GlipiZIDE 5 mg SR Tab PO SCH (09:35)
[2017-10-28] MEDS: guaiFENesin 600 mg ER Tab PO SCH ×2 (09:35→17:28)
[2017-10-28] MEDS: Saccharomyces Boulardi 250 mg Cap PO SCH ×2 (09:35→17:28)
[2017-10-28] MEDS: Pantoprazole 40 mg EC Tab PO SCH (09:35)
[2017-10-28] MEDS: Ammonium Lactate 12% Lotion (225 g) EXT SCH (09:39)
--- NOTE | 2017-10-28 09:40 | CP.PCM.PN ---
<Brett Gill - Last Filed: 10/28/17 11:36> Subjective - Date & Time of Evaluation Date of Evaluation: 10/28/17 Time of Evaluation: 09:33 - Subjective Subjective: PGY-[address] Preciado. No acute events overnight noted. Patient complains of productive brown/green sputum and cough. He complains of shortness of breath. Patient denies hemoptysis , chest pain, abdominal pain, nausea, vomiting, fever, chills, diarrhea. Objective - Vital Signs/Intake and Output Vital Signs (last 24 hours): Temp Pulse Resp BP Pulse Ox 97.7 F 85 20 156/75 H 97 10/28/17 07:49 10/28/17 08:00 10/28/17 07:49 10/28/17 07:49 10/28/17 07:49 Intake and Output: 10/28/17 10/28/17 06:59 18:59 Intake Total 640 Balance 640 - Medications Medications: Current Medications Albuterol/Ipratropium (Duoneb 3 Mg/0.5 Mg (3 Ml) Ud) 3 ml INH RQ4 [facility] Last Admin: 10/28/17 08:33 Dose: 3 ml Enoxaparin Sodium (Lovenox) 40 mg SC DAILY [facility] Last Admin: 10/27/17 09:25 Dose: 40 mg Glipizide (Glucotrol Xl) 5 mg PO DAILY [facility] Last Admin: 10/27/17 09:24 Dose: 5 mg Guaifenesin (Mucinex La) 600 mg PO BID [facility] Last Admin: 10/27/17 17:12 Dose: 600 mg Azithromycin 500 mg/ Sodium (Chloride) 250 mls @ 250 mls/hr IVPB DAILY [facility] Last Admin: 10/27/17 10:55 Dose: 250 mls/hr Ceftriaxone Sodium 1 gm/ (Sodium Chloride) 100 mls @ 100 mls/hr IVPB DAILY [facility] Last Admin: 10/27/17 09:24 Dose: 100 mls/hr Magnesium Sulfate/Dextrose (Magnesium Sulfate 1 Gm/100 Ml D5w) 1 gm in 100 mls @ 200 mls/hr IVPB ONCE ONE Stop: 10/28/17 09:56 Insulin Glargine (Lantus) 10 unit SC [facility] Last Admin: 10/27/17 21:36 Dose: 10 u Insulin Human Regular (Novolin R) 0 unit SC ACHS [facility] PRN Reason: Protocol Last Admin: 10/27/17 21:23 Dose: Not Given Lactic Acid (Lac-Hydrin 12% Lotion (225 G)) 1 gm EXT DAILY [facility] Last Admin: 10/27/17 19:14 Dose: 1 applic Methylprednisolone (Solu-Medrol) 40 mg IV Q8H [facility] Last Admin: 10/28/17 06:11 Dose: 40 mg Pantoprazole Sodium (Protonix Ec Tab) 40 mg PO DAILY [facility] Last Admin: 10/27/17 09:24 Dose: 40 mg Promethazine HCl/Codeine (Phenergan/Codeine Oral Syrup) 5 ml PO Q4 PRN PRN Reason: Cough Saccharomyces Boulardii (Florastor) 250 mg PO BID [facility] Last Admin: 10/27/17 17:12 Dose: 250 mg Fluticasone/Salmeterol (Advair Diskus 250/50) 1 puff INH RQ12 [facility] Last Admin: 10/28/17 08:32 Dose: 1 puff - Labs Labs: 10/28/17 07:47 10/28/17 07:17 - Additional Findings Additional findings: - Constitutional Appears: No Acute Distress - Head Exam Head Exam: ATRAUMATIC, NORMOCEPHALIC - Eye Exam Eye Exam: EOMI, Normal appearance - ENT Exam ENT Exam: Mucous Membranes Moist - Respiratory Exam Respiratory Exam: Wheezes (bilaterally but more pronounced in left upper lung field), NORMAL BREATHING PATTERN. absent: Accessory Muscle Use, Rales, Rhonchi - Cardiovascular Exam Cardiovascular Exam: REGULAR RHYTHM, +S1, +S2 - GI/Abdominal Exam GI & Abdominal Exam: Soft, Normal Bowel Sounds. absent: Tenderness - Extremities Exam Additional comments: extensive lichenification of bilateral legs - Neurological Exam Neurological Exam: Alert, Awake, Oriented x3 - Psychiatric Exam Psychiatric exam: Normal Affect, Normal Mood - Skin Skin Exam: Dry, Warm Assessment and Plan - Assessment and Plan (Free Text) Assessment: 1) COPD exacerbation Atelectasis * 30 pack year smoking hx * CXR--no active disease * Pulmonary consult, Dr Hernández * Duoneb Q4 scheduled * Advair 250/50 1 puff Q12H * Solumedrol 40 mg IV Q8H (taper) * Start Promethazine w codeine 5ml PO Q4H PRN cough * Start incentive spirometry * Mucinex 600mg PO BID * CT Chest (10/26/17): paraseptal emphysema in upper lobes, worse on the right and mild centrilobular emphysema in the lungs. No pneumothorax. No evidence of consolidation or pleural effusion * IV Abx: Azithromycin 500 mg IV daily (started 10/25) and Ceftriaxone 1 gm IV daily (started 10/25) to cover for community acquired pneumonia-->will consider discontinue IV abx since there is no infiltrate identified on CT chest but awaiting procalcitonin giving leukocytosis 2) History of Diabetes (controlled) * Hemoglobin A1c 10/11/17 was 6.2 * Accuchecks AC and HS * Glipizde 5mg PO daily * will increase regular insulin sliding scale coverage in light of 240-300 sugars * Lantus 10 units subqHS 3) History of PE * IVC filter in place * Patient is not on any therapuetic anticoagulation secondary to history of retroperitoneal bleed * CT Chest (10/26/17): paraseptal emphysema in upper lobes, worse on the right and mild centrilobular emphysema in the lungs. No pneumothorax. No evidence of consolidation or pleural effusion. 4) Leukocytosis * likely secondary to steroids * no bandemia * Procalcitonin 0.05 (L) * Flu negative, Mycoplasma pneumoniae IgM negative * F/U Blood Culture * F/U Urine Culture 5) History of Left Inguinal Hernia * Ultrasound evaluation confirms * Evaluated by surgery-->Will need outpatient follow up for repair 6) Tobacco Abuse * Quit 2 months ago, prior smoking since age 13, 30 pack year smoking hx * Start Nictone patch q daily 7) Prophylactic Measures * Protonix 40 PO daily * SCDs * Lovenox 40mg SC daily * Heart Healthy Diet with moderate consistent CHO * IVC filter * Florastor 250mg PO BID * Physical therapy eval Disposition: f/u pulmonary evaluation. Patient has profuse rhonchi over right upper lobe which is consistent with cough. <Charles Preciado H - Last Filed: 10/28/17 13:38> Objective - Vital Signs/Intake and Output Vital Signs (last 24 hours): Temp Pulse Resp BP Pulse Ox 97.7 F 85 20 156/75 H 97 10/28/17 07:49 10/28/17 08:00 10/28/17 07:49 10/28/17 07:49 10/28/17 07:49 Intake and Output: 10/28/17 10/28/17 06:59 18:59 Intake Total 640 Balance 640 - Medications Medications: Current Medications Albuterol/Ipratropium (Duoneb 3 Mg/0.5 Mg (3 Ml) Ud) 3 ml INH RQ4 [facility] Last Admin: 10/28/17 12:40 Dose: 3 ml Enoxaparin Sodium (Lovenox) 40 mg SC DAILY [facility] Last Admin: 10/28/17 09:34 Dose: 40 mg Glipizide (Glucotrol Xl) 5 mg PO DAILY [facility] Last Admin: 10/28/17 09:35 Dose: 5 mg Guaifenesin (Mucinex La) 600 mg PO BID [facility] Last Admin: 10/28/17 09:35 Dose: 600 mg Azithromycin 500 mg/ Sodium (Chloride) 250 mls @ 250 mls/hr IVPB DAILY [facility] Last Admin: 10/28/17 10:43 Dose: 250 mls/hr Ceftriaxone Sodium 1 gm/ (Sodium Chloride) 100 mls @ 100 mls/hr IVPB DAILY [facility] Last Admin: 10/28/17 09:36 Dose: 100 mls/hr Insulin Glargine (Lantus) 10 unit SC HS [facility] Last Admin: 10/27/17 21:36 Dose: 10 u Insulin Human Regular (Novolin R) 0 unit SC ACHS [facility] PRN Reason: Protocol Last Admin: 10/28/17 12:55 Dose: 4 unit Lactic Acid (Lac-Hydrin 12% Lotion (225 G)) 1 gm EXT DAILY [facility] Last Admin: 10/28/17 09:39 Dose: 1 applic Methylprednisolone (Solu-Medrol) 40 mg IV Q8H [facility] Last Admin: 10/28/17 13:33 Dose: 40 mg Pantoprazole Sodium (Protonix Ec Tab) 40 mg PO DAILY [facility] Last Admin: 10/28/17 09:35 Dose: 40 mg Promethazine HCl/Codeine (Phenergan/Codeine Oral Syrup) 5 ml PO Q4 PRN PRN Reason: Cough Saccharomyces Boulardii (Florastor) 250 mg PO BID [facility] Last Admin: 10/28/17 09:35 Dose: 250 mg Fluticasone/Salmeterol (Advair Diskus 250/50) 1 puff INH RQ12 [facility] Last Admin: 10/28/17 08:32 Dose: 1 puff - Labs Labs: 10/28/17 07:47 10/28/17 07:17 Attending/Attestation - Attestation I have personally seen and examined this patient.: Yes I have fully participated in the care of the patient.: Yes I have reviewed all pertinent clinical information, including history, physical exam and plan: Yes Notes (Text): 10/28/17 13:38 Medical attending: Patient was seen and examined by me, reviewed the above note by medical tech and agree with this. This is a 67-year-old patient who is well known to the hospitalist service from previous admissions due to respiratory complications. He's currently here with shortness of breath and coughing, and he reports heavy phlegm and sputum production. He was started on IV antibiotics which we are continuing well he also had a blood culture, we also ordered a sputum culture. He has just imaging which is very substantial amount emphysema He's currently on IV Solu-Medrol, Advair, nebulizer treatments He does have elevated white blood cell. He is on IV antibiotics and checking sputum cultures. It is possible that this sometimes is also made worse with the administration of IV Solu-Medrol that he is receiving Thank you very much, Charles Preciado
[2017-10-28] MEDS: Azithromycin 500 MG in Sodium Chloride 0.9% 250 ML IVPB SCH (10:43)
--- NOTE | 2017-10-28 13:27 | CP.PCM.CON ---
History of Present Illness - History of Present Illness History of Present Illness: reason for consultation: shortness of breath, cough and wheezing Patient is 67-year-old male with COPD, pulmonary embolism status post IVC filter 2 years ago complicated by retroperitoneal hematoma secondary to anticoagulation, psoriasis, diabetes who was admitted with shortness of breath, cough, wheezing and chest pain on coughing. Patient was started on IV steroids, nebulizer treatment and antibiotics. Patient states breathing is slightly better but still having cough and wheezing PMHx: COPD, DM, Asthma, PE 2 years ago s/p IVC filter, retroperotineal hematoma 2 years ago, psoriasis PSHx: IVC filter 2 years prior Allergies - NKDA Family Hx: denies Social: 30 pack year history quit 1 year ago used to smoke 3-4 packs a day, former alcoholic, denies drug use. Patient stays at a friend's house during the week but [facility] on weekends because his friend's girlfriend comes on Fridays. He goes to the pen[facility] daily for meals. Review of Systems - Review of Systems All systems: reviewed and no additional remarkable complaints except (shortness of breath and cough) Past Patient History - Infectious Disease Hx of Infectious Diseases: None - Tetanus Immunizations Tetanus Immunization: Unknown - Past Medical History & Family History Past Medical History?: Yes - Past Social History Smoking Status: Former Smoker - CARDIAC Hx Congestive Heart Failure: Yes Hx Hypertension: Yes - PULMONARY Hx Chronic Obstructive Pulmonary Disease (COPD): Yes - NEUROLOGICAL Hx Neurological Disorder: No - HEENT Hx HEENT Problems: No - RENAL Hx Chronic Kidney Disease: No - ENDOCRINE/METABOLIC Hx Diabetes Mellitus Type 2: Yes - HEMATOLOGICAL/ONCOLOGICAL Hx Human Immunodeficiency Virus (HIV): No - INTEGUMENTARY Hx Dermatological Problems: Yes (GENERALIZED SKIN PSORIASIS) Hx Psoriasis: Yes - MUSCULOSKELETAL/RHEUMATOLOGICAL Hx Musculoskeletal Disorders: No Hx Falls: No - GASTROINTESTINAL Hx Gastrointestinal Disorders: Yes Other/Comment: GI bleeding - GENITOURINARY/GYNECOLOGICAL Hx Genitourinary Disorders: No - PSYCHIATRIC Hx Substance Use: No - SURGICAL HISTORY Other/Comment: IVC Filter - ANESTHESIA Hx Anesthesia: Yes Hx Anesthesia Reactions: No Hx Malignant Hyperthermia: No Has any member of the family had a problem w/ anesthesia?: No Meds Allergies/Adverse Reactions: Allergies Allergy/AdvReac Type Severity Reaction Status Date / Time No Known Allergies Allergy Verified 10/24/17 21:54 - Medications Medications: Current Medications Albuterol/Ipratropium (Duoneb 3 Mg/0.5 Mg (3 Ml) Ud) 3 ml INH RQ4 [facility] Last Admin: 10/28/17 12:40 Dose: 3 ml Enoxaparin Sodium (Lovenox) 40 mg SC DAILY [facility] Last Admin: 10/28/17 09:34 Dose: 40 mg Glipizide (Glucotrol Xl) 5 mg PO DAILY [facility] Last Admin: 10/28/17 09:35 Dose: 5 mg Guaifenesin (Mucinex La) 600 mg PO BID [facility] Last Admin: 10/28/17 09:35 Dose: 600 mg Azithromycin 500 mg/ Sodium (Chloride) 250 mls @ 250 mls/hr IVPB DAILY [facility] Last Admin: 10/27/17 10:55 Dose: 250 mls/hr Ceftriaxone Sodium 1 gm/ (Sodium Chloride) 100 mls @ 100 mls/hr IVPB DAILY [facility] Last Admin: 10/28/17 09:36 Dose: 100 mls/hr Insulin Glargine (Lantus) 10 unit SC HS [facility] Last Admin: 10/27/17 21:36 Dose: 10 u Insulin Human Regular (Novolin R) 0 unit SC ACHS [facility] PRN Reason: Protocol Last Admin: 10/28/17 08:55 Dose: 3 unit Lactic Acid (Lac-Hydrin 12% Lotion (225 G)) 1 gm EXT DAILY [facility] Last Admin: 10/28/17 09:39 Dose: 1 applic Methylprednisolone (Solu-Medrol) 40 mg IV Q8H [facility] Last Admin: 10/28/17 06:11 Dose: 40 mg Pantoprazole Sodium (Protonix Ec Tab) 40 mg PO DAILY [facility] Last Admin: 10/28/17 09:35 Dose: 40 mg Promethazine HCl/Codeine (Phenergan/Codeine Oral Syrup) 5 ml PO Q4 PRN PRN Reason: Cough Saccharomyces Boulardii (Florastor) 250 mg PO BID [facility] Last Admin: 10/28/17 09:35 Dose: 250 mg Fluticasone/Salmeterol (Advair Diskus 250/50) 1 puff INH RQ12 [facility] Last Admin: 10/28/17 08:32 Dose: 1 puff Physical Exam - Head Exam Head Exam: ATRAUMATIC, NORMOCEPHALIC - Eye Exam Eye Exam: Normal appearance - ENT Exam ENT Exam: Mucous Membranes Moist - Neck Exam Neck exam: Positive for: Normal Inspection - Respiratory Exam Respiratory Exam: Rhonchi, Wheezes - Cardiovascular Exam Cardiovascular Exam: REGULAR RHYTHM - GI/Abdominal Exam GI & Abdominal Exam: Normal Bowel Sounds - Extremities Exam Extremities exam: Positive for: normal inspection - Neurological Exam Neurological exam: Alert, Oriented x3 Results - Vital Signs Recent Vital Signs: Last Vital Signs Temp 97.7 F 10/28/17 07:49 Pulse 85 10/28/17 08:00 Resp 20 10/28/17 07:49 BP 156/75 H 10/28/17 07:49 Pulse Ox 97 10/28/17 07:49 - Labs Result Diagrams: 10/28/17 07:47 10/28/17 07:17 Labs: Laboratory Results - last 24 hr 10/27/17 10/27/17 10/27/17 16:32 16:55 17:26 WBC RBC Hgb Hct MCV MCH MCHC RDW Plt Count MPV Neut % (Auto) Lymph % (Auto) [place] % (Auto) Eos % (Auto) Baso % (Auto) Neut # Lymph # [place] # Eos # Baso # Neutrophils % (Manual) Band Neutrophils % Lymphocytes % (Manual) Monocytes % (Manual) Platelet Estimate Hypochromasia (manual) Poikilocytosis (manual Anisocytosis (manual) Sodium Potassium Chloride Carbon Dioxide Anion Gap BUN Creatinine Est GFR ( Amer) Est GFR (Non-Af Amer) POC Glucose (mg/dL) 232 H Random Glucose Calcium Phosphorus Magnesium Total Bilirubin AST ALT Alkaline Phosphatase Total Protein Albumin Globulin Albumin/Globulin Ratio Procalcitonin < 0.05 L Mycoplasma pneumon IgM Negative 10/27/17 10/28/17 10/28/17 20:53 07:12 07:17 WBC RBC Hgb Hct MCV MCH MCHC RDW Plt Count MPV Neut % (Auto) Lymph % (Auto) [place] % (Auto) Eos % (Auto) Baso % (Auto) Neut # Lymph # [place] # Eos # Baso # Neutrophils % (Manual) Band Neutrophils % Lymphocytes % (Manual) Monocytes % (Manual) Platelet Estimate Hypochromasia (manual) Poikilocytosis (manual Anisocytosis (manual) Sodium 134 Potassium 3.6 Chloride 100 Carbon Dioxide 28 Anion Gap 9 L BUN 31 H Creatinine 1.1 Est GFR ( Amer) > 60 Est GFR (Non-Af Amer) > 60 POC Glucose (mg/dL) 192 H 240 H Random Glucose 268 H Calcium 7.9 L Phosphorus 2.6 Magnesium 1.3 L Total Bilirubin 0.3 AST 17 ALT 26 Alkaline Phosphatase 41 Total Protein 5.6 L Albumin 2.9 L Globulin 2.7 Albumin/Globulin Ratio 1.1 Procalcitonin Mycoplasma pneumon IgM 10/28/17 10/28/17 07:47 10:57 WBC 18.0 H RBC 4.16 L Hgb 11.6 L Hct 35.5 MCV 85.1 MCH 27.8 MCHC 32.7 L RDW 16.4 H Plt Count 197 MPV 9.5 Neut % (Auto) 91.4 H Lymph % (Auto) 4.6 L [place] % (Auto) 3.9 Eos % (Auto) 0.0 Baso % (Auto) 0.1 Neut # 16.4 H Lymph # 0.8 L [place] # 0.7 Eos # 0.0 Baso # 0.0 Neutrophils % (Manual) 92 H Band Neutrophils % 1 Lymphocytes % (Manual) 4 L Monocytes % (Manual) 3 Platelet Estimate Normal Hypochromasia (manual) Slight Poikilocytosis (manual Slight Anisocytosis (manual) Slight Sodium Potassium Chloride Carbon Dioxide Anion Gap BUN Creatinine Est GFR ( Amer) Est GFR (Non-Af Amer) POC Glucose (mg/dL) 286 H Random Glucose Calcium Phosphorus Magnesium Total Bilirubin AST ALT Alkaline Phosphatase Total Protein Albumin Globulin Albumin/Globulin Ratio Procalcitonin Mycoplasma pneumon IgM Assessment & Plan (1) Acute exacerbation of chronic obstructive pulmonary disease Status: Acute (2) S/P IVC filter Status: Acute
[2017-10-28] MEDS: (Lantus) Insulin Glargine, Recombinant SC SCH (21:27)
[2017-10-29] MEDS: Albuterol-Ipratrop 3 mg / 0.5 (3 ml) UD INH SCH ×5 (03:12→19:29)
[2017-10-29] MEDS: MethylPREDNISolone 40 mg Vial IV SCH ×3 (06:41→21:53)
--- NOTE | 2017-10-29 07:18 | CP.PCM.PN ---
<Brett Gill R - Last Filed: 10/29/17 12:33> Subjective - Date & Time of Evaluation Date of Evaluation: 10/29/17 Time of Evaluation: 07:16 - Subjective Subjective: PGY-[address] Preciado. No acute events overnight noted. Patient complains of productive brown/green sputum and cough. He complains of shortness of breath. Patient denies hemoptysis , chest pain, abdominal pain, nausea, vomiting, fever, chills, diarrhea. Objective - Vital Signs/Intake and Output Vital Signs (last 24 hours): Temp Pulse Resp BP Pulse Ox 97.4 F L 97 H 20 154/72 H 97 10/29/17 00:00 10/29/17 00:00 10/29/17 00:00 10/29/17 00:00 10/29/17 00:00 Intake and Output: 10/29/17 10/29/17 06:59 18:59 Intake Total 150 Balance 150 - Medications Medications: Current Medications Albuterol/Ipratropium (Duoneb 3 Mg/0.5 Mg (3 Ml) Ud) 3 ml INH RQ4 [facility] Last Admin: 10/29/17 03:12 Dose: Not Given Enoxaparin Sodium (Lovenox) 40 mg SC DAILY [facility] Last Admin: 10/28/17 09:34 Dose: 40 mg Glipizide (Glucotrol Xl) 5 mg PO DAILY [facility] Last Admin: 10/28/17 09:35 Dose: 5 mg Guaifenesin (Mucinex La) 600 mg PO BID [facility] Last Admin: 10/28/17 17:28 Dose: 600 mg Azithromycin 500 mg/ Sodium (Chloride) 250 mls @ 250 mls/hr IVPB DAILY [facility] Last Admin: 10/28/17 10:43 Dose: 250 mls/hr Ceftriaxone Sodium 1 gm/ (Sodium Chloride) 100 mls @ 100 mls/hr IVPB DAILY [facility] Last Admin: 10/28/17 09:36 Dose: 100 mls/hr Insulin Glargine (Lantus) 10 unit SC [facility] Last Admin: 10/28/17 21:27 Dose: 10 u Insulin Human Regular (Novolin R) 0 unit SC ACHS [facility] PRN Reason: Protocol Last Admin: 10/28/17 21:24 Dose: Not Given Lactic Acid (Lac-Hydrin 12% Lotion (225 G)) 1 gm EXT DAILY [facility] Last Admin: 10/28/17 09:39 Dose: 1 applic Methylprednisolone (Solu-Medrol) 40 mg IV Q12H [facility] Pantoprazole Sodium (Protonix Ec Tab) 40 mg PO DAILY [facility] Last Admin: 10/28/17 09:35 Dose: 40 mg Promethazine HCl/Codeine (Phenergan/Codeine Oral Syrup) 5 ml PO Q4 PRN PRN Reason: Cough Saccharomyces Boulardii (Florastor) 250 mg PO BID [facility] Last Admin: 10/28/17 17:28 Dose: 250 mg Fluticasone/Salmeterol (Advair Diskus 250/50) 1 puff INH RQ12 [facility] Last Admin: 10/28/17 22:37 Dose: 1 puff - Labs Labs: 10/28/17 07:47 10/28/17 07:17 - Additional Findings Additional findings: - Constitutional Appears: No Acute Distress - Head Exam Head Exam: ATRAUMATIC, NORMOCEPHALIC - Eye Exam Eye Exam: EOMI, Normal appearance - ENT Exam ENT Exam: Mucous Membranes Moist - Respiratory Exam Respiratory Exam: Wheezes (bilaterally but more pronounced in left upper lung field), NORMAL BREATHING PATTERN. absent: Accessory Muscle Use, Rales, Rhonchi - Cardiovascular Exam Cardiovascular Exam: REGULAR RHYTHM, +S1, +S2 - GI/Abdominal Exam GI & Abdominal Exam: Soft, Normal Bowel Sounds. absent: Tenderness - Extremities Exam Additional comments: extensive lichenification of bilateral legs - Neurological Exam Neurological Exam: Alert, Awake, Oriented x3 - Psychiatric Exam Psychiatric exam: Normal Affect, Normal Mood - Skin Skin Exam: Dry, Warm Assessment and Plan - Assessment and Plan (Free Text) Assessment: 1) COPD exacerbation Atelectasis * 30 pack year smoking hx * CXR--no active disease * F/U repeat CXR 10/30 * Pulmonary consult, Dr Hernández * Duoneb Q4 scheduled * Advair 250/50 1 puff Q12H * Solumedrol 40 mg IV Q8H (taper) * Tiotropium 1 INH QD * Start Promethazine w codeine 5ml PO Q4H PRN cough * Start incentive spirometry * Mucinex 600mg PO BID * CT Chest (10/26/17): paraseptal emphysema in upper lobes, worse on the right and mild centrilobular emphysema in the lungs. No pneumothorax. No evidence of consolidation or pleural effusion * IV Abx: Azithromycin 500 mg IV daily (started 10/25) and Ceftriaxone 1 gm IV daily (started 10/25) to cover for community acquired pneumonia-->will consider discontinue IV abx since there is no infiltrate identified on CT chest and low procalcitonin 2) History of Diabetes (controlled) * Hemoglobin A1c 10/11/17 was 6.2 * Accuchecks AC and HS * Glipizde 5mg PO daily * will increase regular insulin sliding scale coverage in light of 240-300 sugars * Lantus 10 units subqHS 3) History of PE * IVC filter in place * Patient is not on any therapuetic anticoagulation secondary to history of retroperitoneal bleed * CT Chest (10/26/17): paraseptal emphysema in upper lobes, worse on the right and mild centrilobular emphysema in the lungs. No pneumothorax. No evidence of consolidation or pleural effusion. 4) Leukocytosis * likely secondary to steroids * no bandemia * Procalcitonin 0.05 (L) * Flu negative, Mycoplasma pneumoniae IgM negative * F/U Blood Culture * F/U Urine Culture 5) History of Left Inguinal Hernia * Ultrasound evaluation confirms * Evaluated by surgery-->Will need outpatient follow up for repair 6) Tobacco Abuse * Quit 2 months ago, prior smoking since age 13, 30 pack year smoking hx * Start Nictone patch q daily 7) Hypertension * Norvasc 5mg PO QD 8) Prophylactic Measures * Protonix 40 PO daily * SCDs * Lovenox 40mg SC daily * Heart Healthy Diet with moderate consistent CHO * IVC filter * Florastor 250mg PO BID * Physical therapy eval Disposition: f/u pulmonary evaluation. Patient has profuse rhonchi over right upper lobe which is consistent with cough. <Charles Preciado H - Last Filed: 10/29/17 14:37> Objective - Vital Signs/Intake and Output Vital Signs (last 24 hours): Temp Pulse Resp BP Pulse Ox 98.1 F 87 20 159/78 H 95 10/29/17 07:23 10/29/17 07:23 10/29/17 07:23 10/29/17 07:23 10/29/17 07:23 Intake and Output: 10/29/17 10/29/17 06:59 18:59 Intake Total 150 Balance 150 - Medications Medications: Current Medications Albuterol/Ipratropium (Duoneb 3 Mg/0.5 Mg (3 Ml) Ud) 3 ml INH RQ4 [facility] Last Admin: 10/29/17 11:30 Dose: 3 ml Amlodipine Besylate (Norvasc) 5 mg PO DAILY [facility] Last Admin: 10/29/17 13:53 Dose: 5 mg Enoxaparin Sodium (Lovenox) 40 mg SC DAILY [facility] Last Admin: 10/29/17 09:18 Dose: 40 mg Glipizide (Glucotrol Xl) 5 mg PO DAILY [facility] Last Admin: 10/29/17 09:17 Dose: 5 mg Guaifenesin (Mucinex La) 600 mg PO BID [facility] Last Admin: 10/29/17 09:18 Dose: 600 mg Azithromycin 500 mg/ Sodium (Chloride) 250 mls @ 250 mls/hr IVPB DAILY [facility] Last Admin: 10/29/17 10:09 Dose: 250 mls/hr Ceftriaxone Sodium 1 gm/ (Sodium Chloride) 100 mls @ 100 mls/hr IVPB DAILY [facility] Last Admin: 10/29/17 10:10 Dose: 100 mls/hr Insulin Glargine (Lantus) 10 unit SC HS [facility] Last Admin: 10/28/17 21:27 Dose: 10 u Insulin Human Regular (Novolin R) 0 unit SC ACHS [facility] PRN Reason: Protocol Last Admin: 10/29/17 11:21 Dose: 8 unit Lactic Acid (Lac-Hydrin 12% Lotion (225 G)) 1 gm EXT DAILY [facility] Last Admin: 10/29/17 10:00 Dose: 1 applic Methylprednisolone (Solu-Medrol) 40 mg IV Q8 [facility] Last Admin: 10/29/17 13:53 Dose: 40 mg Pantoprazole Sodium (Protonix Ec Tab) 40 mg PO DAILY [facility] Last Admin: 10/29/17 09:17 Dose: 40 mg Promethazine HCl/Codeine (Phenergan/Codeine Oral Syrup) 5 ml PO Q4 PRN PRN Reason: Cough Saccharomyces Boulardii (Florastor) 250 mg PO BID [facility] Last Admin: 10/29/17 09:17 Dose: 250 mg Fluticasone/Salmeterol (Advair Diskus 250/50) 1 puff INH RQ12 [facility] Last Admin: 10/29/17 08:14 Dose: 1 puff Tiotropium [place] (Spiriva) 18 mcg INH RQ24 [facility] Tiotropium [place] (Spiriva Inhalation Handihaler Device) 1 inhaler INH ONCE ONE Stop: 10/30/17 08:01 - Labs Labs: 10/29/17 07:09 10/29/17 07:09 Attending/Attestation - Attestation I have personally seen and examined this patient.: Yes I have fully participated in the care of the patient.: Yes I have reviewed all pertinent clinical information, including history, physical exam and plan: Yes Notes (Text): 10/29/17 14:37 Medical attending: Patient was seen and examined by me, agrees the above note by medical coding auditor. We saw the patient together. He was ambulating in his room when we saw him He still has a lot of Rales and rhonchi bilaterally on exam. He was started on Advair yesterday regarding continue this as well as the IV Solu-Medrol. We also added on Spiriva to be given as well considering he has a history of heavy smoking he also continues to receive albuterol nebulizer treatments With regard to his white blood cell count being elevated this might be secondary from the sterile rates that were giving him however we still can continue the antibiotics at this moment. He has had blood cultures drawn these are negative at that time, the sputum cultures also negative as well. He does not have fevers or chills. thank you Charles Preciado
[2017-10-29 07:22] LABS: BASO % 0.1 % (0.0-2.0); HEMOGLOBIN 11.5 g/dL (12.0-18.0); LYMPH # 0.8 K/uL (1.0-4.3); LYMPH % 5.4 % (20.0-40.0); MEAN CORPUSCULAR HEMOGLOBIN 27.9 pg (27.0-31.0); MEAN CORPUSCULAR HGB CONC 32.9 g/dL (33.0-37.0); MEAN PLATELET VOLUME 9.3 fL (7.2-11.7); MONO # 0.8 K/uL (0.0-0.8); NEUT # 13.4 K/uL (1.8-7.0); NEUT % 89.5 % (50.0-75.0); PLATELET COUNT 203 K/uL (130-400); RED CELL DISTRIBUTION WIDTH 15.5 % (11.5-14.5); WHITE BLOOD COUNT 14.9 K/uL (4.8-10.8)
[2017-10-29] MEDS: Fluticasone-Salmeterol 250-50mcg Diskus INH SCH ×2 (08:14→19:28)
[2017-10-29 08:32] LABS: ANISOCYTOSIS SLIGHT; HYPOCHROMIC SLIGHT; LYMPHOCYTE 6 % (20-40); MONOCYTE 3 % (0-10); NEUTROPHIL 91 % (50-75); NUCLEATED RED BLOOD CELL 1 % (0-0); PLATELET ESTIMATE NORMAL (NORMAL); POIKILOCYTOSIS SLIGHT; TOTAL CELLS COUNTED 100
[2017-10-29 08:34] LABS: ALT/SGPT 24 U/L (21-72); AST/SGOT 15 U/L (17-59); BLOOD UREA NITROGEN 29 mg/dL (9-20); CALCIUM 7.6 mg/dl (8.6-10.4); GFR AFRICAN-AMERICAN > 60; GFR NON-AFRICAN AMERICAN > 60
[2017-10-29 08:36] LABS: ALB/GLOB RATIO 1.1 (1.0-2.1)
[2017-10-29] MEDS: Saccharomyces Boulardi 250 mg Cap PO SCH ×2 (09:17→17:16)
[2017-10-29] MEDS: GlipiZIDE 5 mg SR Tab PO SCH (09:17)
[2017-10-29] MEDS: Pantoprazole 40 mg EC Tab PO SCH (09:17)
[2017-10-29] MEDS: Enoxaparin 40 mg Syringe SC SCH (09:18)
[2017-10-29] MEDS: guaiFENesin 600 mg ER Tab PO SCH ×2 (09:18→17:17)
[2017-10-29] MEDS: (Novolin R) Insulin Human Regular 100 units/ml vial SC SCH ×4 (09:18→21:52)
[2017-10-29] MEDS: Ammonium Lactate 12% Lotion (225 g) EXT SCH (10:00)
[2017-10-29] MEDS ORDERED: MethylPREDNISolone 40 mg Vial IV SCH (10:00)
[2017-10-29] MEDS: Azithromycin 500 MG in Sodium Chloride 0.9% 250 ML IVPB SCH (10:09)
--- NOTE | 2017-10-29 11:36 | CARD ---
APPROVED REPORT EKG Measurement Heart [id number] <Conclusion> Sinus tachycardia Possible Left atrial enlargement Left axis deviation Abnormal ECG
--- NOTE | 2017-10-29 14:19 | CP.PCM.PN ---
Subjective - Date & Time of Evaluation Date of Evaluation: 10/29/17 Time of Evaluation: 12:30 - Subjective Subjective: patient seen and examined Still complaining of shortness of breath Wheezing Afebrile No chest pain Objective - Vital Signs/Intake and Output Vital Signs (last 24 hours): Temp Pulse Resp BP Pulse Ox 98.1 F 87 20 159/78 H 95 10/29/17 07:23 10/29/17 07:23 10/29/17 07:23 10/29/17 07:23 10/29/17 07:23 Intake and Output: 10/29/17 10/29/17 06:59 18:59 Intake Total 150 Balance 150 - Medications Medications: Current Medications Albuterol/Ipratropium (Duoneb 3 Mg/0.5 Mg (3 Ml) Ud) 3 ml INH RQ4 [facility] Last Admin: 10/29/17 11:30 Dose: 3 ml Amlodipine Besylate (Norvasc) 5 mg PO DAILY [facility] Last Admin: 10/29/17 13:53 Dose: 5 mg Enoxaparin Sodium (Lovenox) 40 mg SC DAILY [facility] Last Admin: 10/29/17 09:18 Dose: 40 mg Glipizide (Glucotrol Xl) 5 mg PO DAILY [facility] Last Admin: 10/29/17 09:17 Dose: 5 mg Guaifenesin (Mucinex La) 600 mg PO BID [facility] Last Admin: 10/29/17 09:18 Dose: 600 mg Azithromycin 500 mg/ Sodium (Chloride) 250 mls @ 250 mls/hr IVPB DAILY [facility] Last Admin: 10/29/17 10:09 Dose: 250 mls/hr Ceftriaxone Sodium 1 gm/ (Sodium Chloride) 100 mls @ 100 mls/hr IVPB DAILY [facility] Last Admin: 10/29/17 10:10 Dose: 100 mls/hr Insulin Glargine (Lantus) 10 unit SC HS [facility] Last Admin: 10/28/17 21:27 Dose: 10 u Insulin Human Regular (Novolin R) 0 unit SC ACHS [facility] PRN Reason: Protocol Last Admin: 10/29/17 11:21 Dose: 8 unit Lactic Acid (Lac-Hydrin 12% Lotion (225 G)) 1 gm EXT DAILY [facility] Last Admin: 10/29/17 10:00 Dose: 1 applic Methylprednisolone (Solu-Medrol) 40 mg IV Q8 [facility] Last Admin: 10/29/17 13:53 Dose: 40 mg Pantoprazole Sodium (Protonix Ec Tab) 40 mg PO DAILY [facility] Last Admin: 10/29/17 09:17 Dose: 40 mg Promethazine HCl/Codeine (Phenergan/Codeine Oral Syrup) 5 ml PO Q4 PRN PRN Reason: Cough Saccharomyces Boulardii (Florastor) 250 mg PO BID [facility] Last Admin: 10/29/17 09:17 Dose: 250 mg Fluticasone/Salmeterol (Advair Diskus 250/50) 1 puff INH RQ12 [facility] Last Admin: 10/29/17 08:14 Dose: 1 puff Tiotropium [place] (Spiriva) 18 mcg INH RQ24 [facility] Tiotropium [place] (Spiriva Inhalation Handihaler Device) 1 inhaler INH ONCE ONE Stop: 10/30/17 08:01 - Labs Labs: 10/29/17 07:09 10/29/17 07:09 - Head Exam Head Exam: ATRAUMATIC, NORMOCEPHALIC - Eye Exam Eye Exam: Normal appearance - ENT Exam ENT Exam: Mucous Membranes Moist - Neck Exam Neck Exam: Normal Inspection - Respiratory Exam Respiratory Exam: Rhonchi, Wheezes - Cardiovascular Exam Cardiovascular Exam: REGULAR RHYTHM - GI/Abdominal Exam GI & Abdominal Exam: Soft, Normal Bowel Sounds Assessment and Plan (1) Acute exacerbation of chronic obstructive pulmonary disease Assessment & Plan: continue with IV steroids, nebulize treatment LABA/LAMA iv ANTIBIOTICS Status: Acute (2) S/P IVC filter Status: Acute
[2017-10-29] MEDS: (Lantus) Insulin Glargine, Recombinant SC SCH (21:51)
[2017-10-30] MEDS: Albuterol-Ipratrop 3 mg / 0.5 (3 ml) UD INH SCH ×6 (00:34→19:24)
[2017-10-30] MEDS: MethylPREDNISolone 40 mg Vial IV SCH ×3 (06:30→21:29)
--- NOTE | 2017-10-30 07:14 | CP.PCM.PN ---
Subjective - Date & Time of Evaluation Date of Evaluation: 10/30/17 Time of Evaluation: 07:11 - Subjective Subjective: PGY-[address] Preciado. No acute events overnight noted. Patient still complains of productive brown/ green sputum and cough. Patient still with shortness of breath. Patient denies hemoptysis, chest pain, abdominal pain, nausea, vomiting, fever, chills, diarrhea. Objective - Vital Signs/Intake and Output Vital Signs (last 24 hours): Temp Pulse Resp BP Pulse Ox 97.7 F 94 H 20 163/75 H 97 10/30/17 00:00 10/30/17 00:00 10/30/17 00:00 10/30/17 00:00 10/30/17 00:00 - Medications Medications: Current Medications Albuterol/Ipratropium (Duoneb 3 Mg/0.5 Mg (3 Ml) Ud) 3 ml INH RQ4 [facility] Last Admin: 10/30/17 04:05 Dose: Not Given Amlodipine Besylate (Norvasc) 5 mg PO DAILY [facility] Last Admin: 10/29/17 13:53 Dose: 5 mg Enoxaparin Sodium (Lovenox) 40 mg SC DAILY [facility] Last Admin: 10/29/17 09:18 Dose: 40 mg Glipizide (Glucotrol Xl) 5 mg PO DAILY [facility] Last Admin: 10/29/17 09:17 Dose: 5 mg Guaifenesin (Mucinex La) 600 mg PO BID [facility] Last Admin: 10/29/17 17:17 Dose: 600 mg Azithromycin 500 mg/ Sodium (Chloride) 250 mls @ 250 mls/hr IVPB DAILY [facility] Last Admin: 10/29/17 10:09 Dose: 250 mls/hr Ceftriaxone Sodium 1 gm/ (Sodium Chloride) 100 mls @ 100 mls/hr IVPB DAILY [facility] Last Admin: 10/29/17 10:10 Dose: 100 mls/hr Insulin Glargine (Lantus) 10 unit SC HS [facility] Last Admin: 10/29/17 21:51 Dose: 10 u Insulin Human Regular (Novolin R) 0 unit SC ACHS [facility] PRN Reason: Protocol Last Admin: 10/29/17 21:52 Dose: Not Given Lactic Acid (Lac-Hydrin 12% Lotion (225 G)) 1 gm EXT DAILY [facility] Last Admin: 10/29/17 10:00 Dose: 1 applic Methylprednisolone (Solu-Medrol) 40 mg IV Q8 [facility] Last Admin: 10/30/17 06:30 Dose: 40 mg Pantoprazole Sodium (Protonix Ec Tab) 40 mg PO DAILY [facility] Last Admin: 10/29/17 09:17 Dose: 40 mg Promethazine HCl/Codeine (Phenergan/Codeine Oral Syrup) 5 ml PO Q4 PRN PRN Reason: Cough Saccharomyces Boulardii (Florastor) 250 mg PO BID [facility] Last Admin: 10/29/17 17:16 Dose: 250 mg Fluticasone/Salmeterol (Advair Diskus 250/50) 1 puff INH RQ12 [facility] Last Admin: 10/29/17 19:28 Dose: 1 puff Tiotropium [place] (Spiriva) 18 mcg INH RQ24 [facility] Tiotropium [place] (Spiriva Inhalation Handihaler Device) 1 inhaler INH ONCE ONE Stop: 10/30/17 08:01 - Labs Labs: 10/29/17 07:09 10/29/17 07:09 - Additional Findings Additional findings: - Constitutional Appears: No Acute Distress - Head Exam Head Exam: ATRAUMATIC, NORMOCEPHALIC - Eye Exam Eye Exam: EOMI, Normal appearance - ENT Exam ENT Exam: Mucous Membranes Moist - Respiratory Exam Respiratory Exam: Wheezes (bilaterally but more pronounced in left upper lung field), NORMAL BREATHING PATTERN. absent: Accessory Muscle Use, Rales, Rhonchi - Cardiovascular Exam Cardiovascular Exam: REGULAR RHYTHM, +S1, +S2 - GI/Abdominal Exam GI & Abdominal Exam: Soft, Normal Bowel Sounds. absent: Tenderness - Extremities Exam Additional comments: extensive lichenification of bilateral legs - Neurological Exam Neurological Exam: Alert, Awake, Oriented x3 - Psychiatric Exam Psychiatric exam: Normal Affect, Normal Mood - Skin Skin Exam: Dry, Warm Assessment and Plan - Assessment and Plan (Free Text) Assessment: 1) COPD exacerbation Atelectasis * 30 pack year smoking hx * CXR--no active disease * Repeat CXR 10/30: Very small left pleural effusion. Otherwise unremarkable. * Pulmonary consult, Dr Hernández * Duoneb Q4 scheduled * Advair 250/50 1 puff Q12H * Solumedrol 40 mg IV Q12H (taper) * Tiotropium 1 INH QD * Start Promethazine w codeine 5ml PO Q4H PRN cough * Start incentive spirometry * Mucinex 600mg PO BID * CT Chest (10/26/17): paraseptal emphysema in upper lobes, worse on the right and mild centrilobular emphysema in the lungs. No pneumothorax. No evidence of consolidation or pleural effusion * IV Abx: Azithromycin 500 mg IV daily (started 10/25) and Ceftriaxone 1 gm IV daily (started 10/25) to cover for community acquired pneumonia-->will consider discontinue IV abx since there is no infiltrate identified on CT chest and low procalcitonin 2) History of Diabetes (controlled) * Hemoglobin A1c 10/11/17 was 6.2 * Accuchecks AC and HS * Glipizde 5mg PO daily * will increase regular insulin sliding scale coverage in light of 240-300 sugars * Lantus 10 units subqHS 3) History of PE * IVC filter in place * Patient is not on any therapuetic anticoagulation secondary to history of retroperitoneal bleed * CT Chest (10/26/17): paraseptal emphysema in upper lobes, worse on the right and mild centrilobular emphysema in the lungs. No pneumothorax. No evidence of consolidation or pleural effusion. 4) Leukocytosis * likely secondary to steroids * no bandemia * Procalcitonin 0.05 (L) * Flu NEGATIVE, Mycoplasma pneumoniae IgM NEGATIVE, Legionella NEGATIVE * Blood Culture 10/28 NEGATIVE * Sputum Culture 10/28 NEGATIVE 5) History of Left Inguinal Hernia * Ultrasound evaluation confirms * Evaluated by surgery-->Will need outpatient follow up for repair 6) Tobacco Abuse * Quit 2 months ago, prior smoking since age 13, 30 pack year smoking hx * Start Nictone patch q daily 7) Hypertension * Norvasc 5mg PO QD 8) Prophylactic Measures * Protonix 40 PO daily * SCDs * Lovenox 40mg SC daily * Heart Healthy Diet with moderate consistent CHO * IVC filter * Florastor 250mg PO BID * Physical therapy eval Disposition: f/u pulmonary evaluation. Patient has profuse rhonchi over right upper lobe which is consistent with cough.
[2017-10-30 08:14] LABS: BASO % 0.3 % (0.0-2.0); HEMOGLOBIN 11.7 g/dL (12.0-18.0); LYMPH # 0.9 K/uL (1.0-4.3); LYMPH % 7.6 % (20.0-40.0); MEAN CORPUSCULAR HEMOGLOBIN 28.8 pg (27.0-31.0); MEAN CORPUSCULAR HGB CONC 33.9 g/dL (33.0-37.0); MONO # 0.7 K/uL (0.0-0.8); MONO % 5.8 % (0.0-10.0); NEUT # 10.7 K/uL (1.8-7.0); NEUT % 86.3 % (50.0-75.0); PLATELET COUNT 204 K/uL (130-400); RBC 4.07 Mil/uL (4.40-5.90); RED CELL DISTRIBUTION WIDTH 15.5 % (11.5-14.5); WHITE BLOOD COUNT 12.4 K/uL (4.8-10.8)
[2017-10-30] MEDS: Fluticasone-Salmeterol 250-50mcg Diskus INH SCH ×2 (08:18→19:24)
[2017-10-30] MEDS: (Novolin R) Insulin Human Regular 100 units/ml vial SC SCH ×4 (08:31→22:00)
[2017-10-30] MEDS: Tiotropium 18 mcg Cap For Inhalation INH SCH (08:32)
[2017-10-30 09:13] LABS: LYMPHOCYTE 10 % (20-40); MONOCYTE 5 % (0-10); NEUTROPHIL 84 % (50-75); PLATELET ESTIMATE NORMAL (NORMAL); REACTIVE LYMPHOCYTES 5 % (0-0); TOTAL CELLS COUNTED 100
[2017-10-30 09:14] LABS: ANISOCYTOSIS SLIGHT; HYPOCHROMIC SLIGHT; OVALOCYTES SLIGHT; POIKILOCYTOSIS SLIGHT; TARGET CELLS SLIGHT
[2017-10-30 09:15] LABS: LARGE PLATELETS PRESENT
[2017-10-30 09:25] LABS: ALB/GLOB RATIO 1.2 (1.0-2.1); ALBUMIN 3.1 g/dL (3.5-5.0); ALT/SGPT 22 U/L (21-72); AST/SGOT 19 U/L (17-59); BLOOD UREA NITROGEN 26 mg/dL (9-20); GFR AFRICAN-AMERICAN > 60; GFR NON-AFRICAN AMERICAN > 60
[2017-10-30] MEDS: Enoxaparin 40 mg Syringe SC SCH (09:30)
[2017-10-30] MEDS: Saccharomyces Boulardi 250 mg Cap PO SCH ×2 (09:31→18:32)
[2017-10-30] MEDS: Pantoprazole 40 mg EC Tab PO SCH (09:31)
[2017-10-30] MEDS: GlipiZIDE 5 mg SR Tab PO SCH (09:31)
[2017-10-30] MEDS: guaiFENesin 600 mg ER Tab PO SCH ×2 (09:31→18:35)
--- NOTE | 2017-10-30 09:55 | RAD ---
HISTORY: COPD exacerbation COMPARISON: 10/27/2027 TECHNIQUE: Chest PA and lateral FINDINGS: LUNGS: No active pulmonary disease. PLEURA: Very small left pleural effusion. No evidence of right pleural effusion. No pneumothorax. CARDIOVASCULAR: Normal. OSSEOUS STRUCTURES: No significant abnormalities. VISUALIZED UPPER ABDOMEN: Normal. OTHER FINDINGS: None. IMPRESSION: Very small left pleural effusion. Otherwise unremarkable.
[2017-10-30] MEDS: Azithromycin 500 MG in Sodium Chloride 0.9% 250 ML IVPB SCH (10:05)
[2017-10-30] MEDS: Ammonium Lactate 12% Lotion (225 g) EXT SCH (10:27)
--- NOTE | 2017-10-30 14:13 | CP.PCM.PN ---
Subjective - Date & Time of Evaluation Date of Evaluation: 10/30/17 Time of Evaluation: 07:00 - Subjective Subjective: still complaining of shortness of breath and cough less wheezing Afebrile no chest pain Objective - Vital Signs/Intake and Output Vital Signs (last 24 hours): Temp Pulse Resp BP Pulse Ox 98.1 F 75 20 148/79 96 10/30/17 07:44 10/30/17 11:00 10/30/17 07:44 10/30/17 11:00 10/30/17 11:00 Intake and Output: 10/30/17 10/30/17 06:59 18:59 Intake Total 200 Balance 200 - Medications Medications: Current Medications Albuterol/Ipratropium (Duoneb 3 Mg/0.5 Mg (3 Ml) Ud) 3 ml INH RQ4 [facility] Last Admin: 10/30/17 12:31 Dose: 3 ml Amlodipine Besylate (Norvasc) 5 mg PO DAILY [facility] Last Admin: 10/30/17 09:31 Dose: 5 mg Enoxaparin Sodium (Lovenox) 40 mg SC DAILY [facility] Last Admin: 10/30/17 09:30 Dose: 40 mg Glipizide (Glucotrol Xl) 5 mg PO DAILY [facility] Last Admin: 10/30/17 09:31 Dose: 5 mg Guaifenesin (Mucinex La) 600 mg PO BID [facility] Last Admin: 10/30/17 09:31 Dose: 600 mg Azithromycin 500 mg/ Sodium (Chloride) 250 mls @ 250 mls/hr IVPB DAILY [facility] Last Admin: 10/30/17 10:05 Dose: 250 mls/hr Ceftriaxone Sodium 1 gm/ (Sodium Chloride) 100 mls @ 100 mls/hr IVPB DAILY [facility] Last Admin: 10/30/17 09:31 Dose: 100 mls/hr Insulin Glargine (Lantus) 10 unit SC HS [facility] Last Admin: 10/29/17 21:51 Dose: 10 u Insulin Human Regular (Novolin R) 0 unit SC ACHS [facility] PRN Reason: Protocol Last Admin: 10/30/17 12:26 Dose: 2 unit Lactic Acid (Lac-Hydrin 12% Lotion (225 G)) 1 gm EXT DAILY [facility] Last Admin: 10/30/17 10:27 Dose: 1 applic Methylprednisolone (Solu-Medrol) 40 mg IV Q8 [facility] Last Admin: 10/30/17 13:51 Dose: 40 mg Pantoprazole Sodium (Protonix Ec Tab) 40 mg PO DAILY [facility] Last Admin: 10/30/17 09:31 Dose: 40 mg Promethazine HCl/Codeine (Phenergan/Codeine Oral Syrup) 5 ml PO Q4 PR[facility] PRN Reason: Cough Saccharomyces Boulardii (Florastor) 250 mg PO BID [facility] Last Admin: 10/30/17 09:31 Dose: 250 mg Fluticasone/Salmeterol (Advair Diskus 250/50) 1 puff INH RQ12 [facility] Last Admin: 10/30/17 08:18 Dose: 1 puff Tiotropium [place] (Spiriva) 18 mcg INH RQ24 [facility] Last Admin: 10/30/17 08:32 Dose: Not Given - Labs Labs: 10/30/17 08:03 10/30/17 08:03 - Head Exam Head Exam: ATRAUMATIC, NORMOCEPHALIC - Eye Exam Eye Exam: Normal appearance - ENT Exam ENT Exam: Mucous Membranes Moist - Respiratory Exam Respiratory Exam: Rhonchi, Wheezes - Cardiovascular Exam Cardiovascular Exam: REGULAR RHYTHM Assessment and Plan (1) Acute exacerbation of chronic obstructive pulmonary disease Assessment & Plan: continue nebulizer treatment,, IV steroids Continue antibiotics Status: Acute (2) S/P IVC filter Status: Acute
[2017-10-30] MEDS ORDERED: (Lantus) Insulin Glargine, Recombinant SC ONE (23:41)
[2017-10-31] MEDS: Albuterol-Ipratrop 3 mg / 0.5 (3 ml) UD INH SCH ×6 (00:48→20:13)
[2017-10-31 07:54] LABS: ALT/SGPT 23 U/L (21-72); AST/SGOT 17 U/L (17-59); BLOOD UREA NITROGEN 27 mg/dL (9-20); CALCIUM 7.9 mg/dl (8.6-10.4); GFR AFRICAN-AMERICAN > 60; GFR NON-AFRICAN AMERICAN > 60
[2017-10-31 07:56] LABS: BASO % 0.2 % (0.0-2.0); HEMOGLOBIN 11.8 g/dL (12.0-18.0); LYMPH # 0.8 K/uL (1.0-4.3); LYMPH % 7.3 % (20.0-40.0); MEAN CELL VOLUME 85.8 fL (80.0-94.0); MEAN CORPUSCULAR HEMOGLOBIN 28.6 pg (27.0-31.0); MEAN CORPUSCULAR HGB CONC 33.3 g/dL (33.0-37.0); MEAN PLATELET VOLUME 9.1 fL (7.2-11.7); MONO # 0.7 K/uL (0.0-0.8); NEUT # 9.6 K/uL (1.8-7.0); NEUT % 86.5 % (50.0-75.0); NRBC % 0.1 % (0.0-2.0); PLATELET COUNT 210 K/uL (130-400); RBC 4.12 Mil/uL (4.40-5.90); WHITE BLOOD COUNT 11.1 K/uL (4.8-10.8)
[2017-10-31 07:57] LABS: ALB/GLOB RATIO 1.1 (1.0-2.1)
[2017-10-31] MEDS: Fluticasone-Salmeterol 250-50mcg Diskus INH SCH ×2 (08:24→20:14)
[2017-10-31] MEDS: Tiotropium 18 mcg Cap For Inhalation INH SCH (08:24)
[2017-10-31] MEDS: (Novolin R) Insulin Human Regular 100 units/ml vial SC SCH ×4 (08:40→21:04)
[2017-10-31 09:15] LABS: EOSINOPHIL 1 % (0-4); HYPOCHROMIC SLIGHT; LYMPHOCYTE 7 % (20-40); MONOCYTE 3 % (0-10); NEUTROPHIL 89 % (50-75); PLATELET ESTIMATE NORMAL (NORMAL); TOTAL CELLS COUNTED 100
[2017-10-31] MEDS: Saccharomyces Boulardi 250 mg Cap PO SCH ×2 (09:51→18:03)
[2017-10-31] MEDS: MethylPREDNISolone 40 mg Vial IV SCH ×2 (09:51→20:59)
[2017-10-31] MEDS: Enoxaparin 40 mg Syringe SC SCH (09:51)
[2017-10-31] MEDS: GlipiZIDE 5 mg SR Tab PO SCH (09:51)
[2017-10-31] MEDS: guaiFENesin 600 mg ER Tab PO SCH ×2 (09:51→17:58)
[2017-10-31] MEDS: Pantoprazole 40 mg EC Tab PO SCH (09:51)
[2017-10-31] MEDS: Ammonium Lactate 12% Lotion (225 g) EXT SCH (10:50)
[2017-10-31] MEDS: Azithromycin 500 MG in Sodium Chloride 0.9% 250 ML IVPB SCH (10:51)
--- NOTE | 2017-10-31 13:23 | CP.PCM.PN ---
Subjective - Date & Time of Evaluation Date of Evaluation: 10/31/17 Time of Evaluation: 09:00 - Subjective Subjective: patient seen and examined. Breathing and cough much improved Still has slight wheezing Afebrile No chest pain Objective - Vital Signs/Intake and Output Vital Signs (last 24 hours): Temp Pulse Resp BP Pulse Ox 97.8 F 90 20 155/83 H 96 10/31/17 07:47 10/31/17 07:47 10/31/17 07:47 10/31/17 07:47 10/31/17 07:47 - Medications Medications: Current Medications Albuterol/Ipratropium (Duoneb 3 Mg/0.5 Mg (3 Ml) Ud) 3 ml INH RQ4 [facility] Last Admin: 10/31/17 12:50 Dose: 3 ml Amlodipine Besylate (Norvasc) 5 mg PO DAILY [facility] Last Admin: 10/31/17 09:51 Dose: 5 mg Enoxaparin Sodium (Lovenox) 40 mg SC DAILY [facility] Last Admin: 10/31/17 09:51 Dose: 40 mg Glipizide (Glucotrol Xl) 5 mg PO DAILY [facility] Last Admin: 10/31/17 09:51 Dose: 5 mg Guaifenesin (Mucinex La) 600 mg PO BID [facility] Last Admin: 10/31/17 09:51 Dose: 600 mg Azithromycin 500 mg/ Sodium (Chloride) 250 mls @ 250 mls/hr IVPB DAILY [facility] Last Admin: 10/31/17 10:51 Dose: 250 mls/hr Ceftriaxone Sodium 1 gm/ (Sodium Chloride) 100 mls @ 100 mls/hr IVPB DAILY [facility] Last Admin: 10/31/17 09:52 Dose: 100 mls/hr Insulin Glargine (Lantus) 10 unit SC HS [facility] Last Admin: 10/29/17 21:51 Dose: 10 u Insulin Human Regular (Novolin R) 0 unit SC ACHS [facility] PRN Reason: Protocol Last Admin: 10/31/17 11:35 Dose: Not Given Lactic Acid (Lac-Hydrin 12% Lotion (225 G)) 1 gm EXT DAILY [facility] Last Admin: 10/31/17 10:50 Dose: 1 applic Methylprednisolone (Solu-Medrol) 40 mg IV Q12 [facility] Last Admin: 10/31/17 09:51 Dose: 40 mg Pantoprazole Sodium (Protonix Ec Tab) 40 mg PO DAILY [facility] Last Admin: 10/31/17 09:51 Dose: 40 mg Promethazine HCl/Codeine (Phenergan/Codeine Oral Syrup) 5 ml PO Q4 PRN PRN Reason: Cough Saccharomyces Boulardii (Florastor) 250 mg PO BID [facility] Last Admin: 10/31/17 09:51 Dose: 250 mg Fluticasone/Salmeterol (Advair Diskus 250/50) 1 puff INH RQ12 [facility] Last Admin: 10/31/17 08:24 Dose: 1 puff Tiotropium [place] (Spiriva) 18 mcg INH RQ24 [facility] Last Admin: 10/31/17 08:24 Dose: Not Given - Labs Labs: 10/31/17 07:14 10/31/17 07:14 - Head Exam Head Exam: ATRAUMATIC, NORMOCEPHALIC - Eye Exam Eye Exam: Normal appearance - ENT Exam ENT Exam: Mucous Membranes Moist - Neck Exam Neck Exam: Full ROM - Respiratory Exam Respiratory Exam: Rhonchi, Wheezes - Cardiovascular Exam Cardiovascular Exam: REGULAR RHYTHM - GI/Abdominal Exam GI & Abdominal Exam: Soft, Normal Bowel Sounds - Extremities Exam Extremities Exam: Normal Inspection - Neurological Exam Neurological Exam: Awake Assessment and Plan (1) Acute exacerbation of chronic obstructive pulmonary disease Assessment & Plan: Taper IV steroids Continue nebulizer treatment Okay to discharge home on by mouth prednisone Status: Acute (2) S/P IVC filter Status: Acute
--- NOTE | 2017-10-31 14:27 | CP.PCM.PN ---
<Vimal Hong - Last Filed: 10/31/17 14:24> Subjective - Date & Time of Evaluation Date of Evaluation: 10/31/17 Time of Evaluation: 14:26 - Subjective Subjective: PGY1 Medicine Note for Dr. Preciado Patient seen and examined at bedside this morning. Patient states his cough is still present but is slightly improved from yesterday. The cough is still bringing up brown/green sputum but the amount has decreased. He states his breathing overall is much improved compared to yesterday. He denies any chest pain, nausea, vomiting, fevers or chills. Objective - Vital Signs/Intake and Output Vital Signs (last 24 hours): Temp Pulse Resp BP Pulse Ox 97.8 F 90 20 155/83 H 96 10/31/17 07:47 10/31/17 07:47 10/31/17 07:47 10/31/17 07:47 10/31/17 07:47 - Medications Medications: Current Medications Albuterol/Ipratropium (Duoneb 3 Mg/0.5 Mg (3 Ml) Ud) 3 ml INH RQ4 [facility] Last Admin: 10/31/17 12:50 Dose: 3 ml Amlodipine Besylate (Norvasc) 5 mg PO DAILY [facility] Last Admin: 10/31/17 09:51 Dose: 5 mg Enoxaparin Sodium (Lovenox) 40 mg SC DAILY [facility] Last Admin: 10/31/17 09:51 Dose: 40 mg Glipizide (Glucotrol Xl) 5 mg PO DAILY [facility] Last Admin: 10/31/17 09:51 Dose: 5 mg Guaifenesin (Mucinex La) 600 mg PO BID [facility] Last Admin: 10/31/17 09:51 Dose: 600 mg Imipenem/Cilastatin Sodium 500 (mg/ Sodium Chloride) 100 mls @ 100 mls/hr IVPB Q6H [facility] Vancomycin/Sodium Chloride (Vancomycin 1 Gm/Ns 200 Ml) 1 gm in 200 mls @ 166.6 mls/hr IVPB Q12H [facility] Stop: 11/05/17 15:31 Insulin Glargine (Lantus) 10 unit SC HS [facility] Last Admin: 10/29/17 21:51 Dose: 10 u Insulin Human Regular (Novolin R) 0 unit SC ACHS [facility] PRN Reason: Protocol Last Admin: 10/31/17 11:35 Dose: Not Given Lactic Acid (Lac-Hydrin 12% Lotion (225 G)) 1 gm EXT DAILY [facility] Last Admin: 10/31/17 10:50 Dose: 1 applic Methylprednisolone (Solu-Medrol) 40 mg IV Q12 [facility] Last Admin: 10/31/17 09:51 Dose: 40 mg Pantoprazole Sodium (Protonix Ec Tab) 40 mg PO DAILY [facility] Last Admin: 10/31/17 09:51 Dose: 40 mg Promethazine HCl/Codeine (Phenergan/Codeine Oral Syrup) 5 ml PO Q4 PRN PRN Reason: Cough Saccharomyces Boulardii (Florastor) 250 mg PO BID [facility] Last Admin: 10/31/17 09:51 Dose: 250 mg Fluticasone/Salmeterol (Advair Diskus 250/50) 1 puff INH RQ12 [facility] Last Admin: 10/31/17 08:24 Dose: 1 puff Tiotropium [place] (Spiriva) 18 mcg INH RQ24 [facility] Last Admin: 10/31/17 08:24 Dose: Not Given - Labs Labs: 10/31/17 07:14 10/31/17 07:14 - Constitutional Appears: No Acute Distress - Head Exam Head Exam: ATRAUMATIC, NORMOCEPHALIC - Eye Exam Eye Exam: EOMI, Normal appearance - ENT Exam ENT Exam: Mucous Membranes Moist - Respiratory Exam Respiratory Exam: Rhonchi, Wheezes, NORMAL BREATHING PATTERN. absent: Accessory Muscle Use, Rales, Respiratory Distress - Cardiovascular Exam Cardiovascular Exam: REGULAR RHYTHM, +S1 - GI/Abdominal Exam GI & Abdominal Exam: Soft, Normal Bowel Sounds. absent: Distended, Firm, Guarding, Rigid, Tenderness - Extremities Exam Extremities Exam: absent: Calf Tenderness - Neurological Exam Neurological Exam: Alert, Awake, Oriented x3 - Psychiatric Exam Psychiatric exam: Normal Affect, Normal Mood - Skin Skin Exam: Dry, Warm Assessment and Plan - Assessment and Plan (Free Text) Plan: 1) COPD exacerbation Atelectasis * 30 pack year smoking hx * CXR--no active disease * Repeat CXR 10/30: Very small left pleural effusion. Otherwise unremarkable. * Pulmonary consult, Dr Hernández * Duoneb Q4 scheduled * Advair 250/50 1 puff Q12H * Solumedrol 40 mg IV Q12H (taper) * Tiotropium 1 INH QD * Promethazine w codeine 5ml PO Q4H PRN cough * Encourage incentive spirometry * Mucinex 600mg PO BID * CT Chest (10/26/17): paraseptal emphysema in upper lobes, worse on the right and mild centrilobular emphysema in the lungs. No pneumothorax. No evidence of consolidation or pleural effusion * IV Abx: Azithromycin 500 mg IV daily (started 10/25) and Ceftriaxone 1 gm IV daily (started 10/25) - discontinued due to sputum culture positive for ESBL E.Coli and MRSA * Started on Primaxin 500mg IVPB q6h (started on 10/31/17) * Started on Vanco 1000mg IVPB q12h (started on 10/31/17) - vanco trough on @0100 2) Leukocytosis - improving * WBC 11.1 * no bandemia * Procalcitonin 0.05 (L) * Flu NEGATIVE, Mycoplasma pneumoniae IgM NEGATIVE, Legionella NEGATIVE * Blood Culture 10/28 - negative at 3 days. * Sputum Culture 10/28 - positive for ESBL E. Coli and MRSA * Started on Primaxin 500mg IVPB q6h (started on 10/31/17) * Started on Vanco 1000mg IVPB q12h (started on 10/31/17) - vanco trough on @0100 3) History of Diabetes (controlled) * Hemoglobin A1c 10/11/17 was 6.2 * Accuchecks AC and HS * Glipizde 5mg PO daily * ISS * Lantus 10 units subqHS 4) History of PE * IVC filter in place * Patient is not on any therapuetic anticoagulation secondary to history of retroperitoneal bleed * CT Chest (10/26/17): paraseptal emphysema in upper lobes, worse on the right and mild centrilobular emphysema in the lungs. No pneumothorax. No evidence of consolidation or pleural effusion. 5) History of Left Inguinal Hernia * Ultrasound evaluation confirms * Evaluated by surgery-->Will need outpatient follow up for repair 6) Tobacco Abuse * Quit 2 months ago, prior smoking since age 13, 30 pack year smoking hx * Start Nictone patch q daily 7) Hypertension * Norvasc 5mg PO QD 8) Prophylactic Measures * Protonix 40 PO daily * SCDs * Lovenox 40mg SC daily * Heart Healthy Diet with moderate consistent CHO * IVC filter * Florastor 250mg PO BID * Physical therapy eval Disposition: f/u pulmonary evaluation. Patient has profuse rhonchi over right upper lobe which is consistent with cough. Case discussed with Dr. Ilana Hong PGY <Charles Preciado H - Last Filed: 10/31/17 16:39> Objective - Vital Signs/Intake and Output Vital Signs (last 24 hours): Temp Pulse Resp BP Pulse Ox 97.8 F 90 20 155/83 H 96 10/31/17 07:47 10/31/17 07:47 10/31/17 07:47 10/31/17 07:47 10/31/17 07:47 - Medications Medications: Current Medications Albuterol/Ipratropium (Duoneb 3 Mg/0.5 Mg (3 Ml) Ud) 3 ml INH RQ4 [facility] Last Admin: 10/31/17 12:50 Dose: 3 ml Amlodipine Besylate (Norvasc) 5 mg PO DAILY [facility] Last Admin: 10/31/17 09:51 Dose: 5 mg Enoxaparin Sodium (Lovenox) 40 mg SC DAILY [facility] Last Admin: 10/31/17 09:51 Dose: 40 mg Glipizide (Glucotrol Xl) 5 mg PO DAILY [facility] Last Admin: 10/31/17 09:51 Dose: 5 mg Guaifenesin (Mucinex La) 600 mg PO BID [facility] Last Admin: 10/31/17 09:51 Dose: 600 mg Imipenem/Cilastatin Sodium 500 (mg/ Sodium Chloride) 100 mls @ 100 mls/hr IVPB Q6H [facility] Vancomycin/Sodium Chloride (Vancomycin 1 Gm/Ns 200 Ml) 1 gm in 200 mls @ 166.6 mls/hr IVPB Q12H [facility] Stop: 11/05/17 15:31 Insulin Glargine (Lantus) 10 unit SC HS [facility] Last Admin: 10/29/17 21:51 Dose: 10 u Insulin Human Regular (Novolin R) 0 unit SC ACHS [facility] PRN Reason: Protocol Last Admin: 10/31/17 11:35 Dose: Not Given Lactic Acid (Lac-Hydrin 12% Lotion (225 G)) 1 gm EXT DAILY [facility] Last Admin: 10/31/17 10:50 Dose: 1 applic Methylprednisolone (Solu-Medrol) 40 mg IV Q12 [facility] Last Admin: 10/31/17 09:51 Dose: 40 mg Pantoprazole Sodium (Protonix Ec Tab) 40 mg PO DAILY [facility] Last Admin: 10/31/17 09:51 Dose: 40 mg Promethazine HCl/Codeine (Phenergan/Codeine Oral Syrup) 5 ml PO Q4 PRN PRN Reason: Cough Saccharomyces Boulardii (Florastor) 250 mg PO BID [facility] Last Admin: 10/31/17 09:51 Dose: 250 mg Fluticasone/Salmeterol (Advair Diskus 250/50) 1 puff INH RQ12 [facility] Last Admin: 10/31/17 08:24 Dose: 1 puff Tiotropium [place] (Spiriva) 18 mcg INH RQ24 [facility] Last Admin: 10/31/17 08:24 Dose: Not Given - Labs Labs: 10/31/17 07:14 10/31/17 07:14 Attending/Attestation - Attestation I have personally seen and examined this patient.: Yes I have fully participated in the care of the patient.: Yes I have reviewed all pertinent clinical information, including history, physical exam and plan: Yes Notes (Text): 10/31/17 16:39 Medical attending: Patient was seen and examined by me, agrees the above note by the medical sales. The patient was now placed on respiratory/droplet isolation. Sputum culture grew back positive for both Escherichia coli ESBL as well as MRSA so we've discontinued his Rocephin and azithromycin. He's been placed on Primaxin as well as IV vancomycin at this time. The question now becomes can we slowly decreased the dose of Solu-Medrol IV down Thank you very much, Charles Preciado
[2017-10-31] MEDS: Vancomycin 1 gm/NS 200 ml 1 GM/200 ML BAG IVPB SCH (16:51)
[2017-10-31] MEDS: (Lantus) Insulin Glargine, Recombinant SC SCH (22:17)
[2017-11-01] MEDS: Albuterol-Ipratrop 3 mg / 0.5 (3 ml) UD INH SCH ×6 (00:07→19:48)
[2017-11-01] MEDS: Vancomycin 1 gm/NS 200 ml 1 GM/200 ML BAG IVPB SCH (03:42)
[2017-11-01] MEDS: Fluticasone-Salmeterol 250-50mcg Diskus INH SCH ×2 (07:58→19:47)
[2017-11-01] MEDS: Tiotropium 18 mcg Cap For Inhalation INH SCH ×2 (08:00→09:09)
[2017-11-01 08:09] LABS: BASO % 0.4 % (0.0-2.0); EOS % 0.1 % (0.0-4.0); LYMPH # 0.9 K/uL (1.0-4.3); LYMPH % 8.5 % (20.0-40.0); MEAN CELL VOLUME 85.8 fL (80.0-94.0); MEAN CORPUSCULAR HEMOGLOBIN 28.9 pg (27.0-31.0); MEAN CORPUSCULAR HGB CONC 33.6 g/dL (33.0-37.0); MEAN PLATELET VOLUME 9.1 fL (7.2-11.7); MONO # 0.7 K/uL (0.0-0.8); MONO % 6.1 % (0.0-10.0); NEUT # 9.2 K/uL (1.8-7.0); NEUT % 84.9 % (50.0-75.0); NRBC % 0.1 % (0.0-2.0); PLATELET COUNT 194 K/uL (130-400); RBC 4.17 Mil/uL (4.40-5.90); RED CELL DISTRIBUTION WIDTH 15.9 % (11.5-14.5); WHITE BLOOD COUNT 10.9 K/uL (4.8-10.8)
[2017-11-01] MEDS: (Novolin R) Insulin Human Regular 100 units/ml vial SC SCH ×4 (08:30→20:59)
[2017-11-01] MEDS: Albuterol-Ipratrop 3 mg / 0.5 (3 ml) UD INH STA ×2 (08:51→08:55)
[2017-11-01 09:00] LABS: ALB/GLOB RATIO 1.2 (1.0-2.1); ALBUMIN 3.1 g/dL (3.5-5.0); ALT/SGPT 22 U/L (21-72); AST/SGOT 23 U/L (17-59); BLOOD UREA NITROGEN 26 mg/dL (9-20); CALCIUM 7.8 mg/dl (8.6-10.4); GFR AFRICAN-AMERICAN > 60; GFR NON-AFRICAN AMERICAN > 60
[2017-11-01 09:34] LABS: ANISOCYTOSIS SLIGHT; LYMPHOCYTE 9 % (20-40); MONOCYTE 5 % (0-10); NEUTROPHIL 86 % (50-75); PLATELET ESTIMATE NORMAL (NORMAL); TOTAL CELLS COUNTED 100
[2017-11-01 09:35] LABS: POLYCHROMIC SLIGHT
[2017-11-01 09:36] LABS: BURR CELLS SLIGHT; POIKILOCYTOSIS SLIGHT
[2017-11-01 09:37] LABS: HYPOCHROMIC SLIGHT; TOXIC GRANULATION PRESENT
[2017-11-01] MEDS: guaiFENesin 600 mg ER Tab PO SCH ×2 (10:58→18:43)
[2017-11-01] MEDS: GlipiZIDE 5 mg SR Tab PO SCH (10:59)
[2017-11-01] MEDS: Pantoprazole 40 mg EC Tab PO SCH (10:59)
[2017-11-01] MEDS: Enoxaparin 40 mg Syringe SC SCH (10:59)
[2017-11-01] MEDS: Saccharomyces Boulardi 250 mg Cap PO SCH ×2 (10:59→18:43)
[2017-11-01] MEDS: MethylPREDNISolone 40 mg Vial IV SCH (10:59)
[2017-11-01] MEDS: Ammonium Lactate 12% Lotion (225 g) EXT SCH (11:00)
--- NOTE | 2017-11-01 11:40 | CP.PCM.PN ---
Subjective - Date & Time of Evaluation Date of Evaluation: 11/01/17 Time of Evaluation: 11:00 - Subjective Subjective: Patient was seen and examined by me as well as the resident together He was sitting up in bed watching television. He was moved to an isolation room yesterday after it was found he was + E Coli ESBL and also + MRSA The patient still reports heavy thick brown phelgm when he coughs We placed him on IV Primaxin as well as IV Vanco yesterday - however this morning we changed the IV Vancomycin over to Gentamicin 80 IV TID as this will have both ESBL E coli coverage as well as MRSA coverage. Objective - Vital Signs/Intake and Output Vital Signs (last 24 hours): Temp Pulse Resp BP Pulse Ox 97.8 F 73 20 160/75 H 96 11/01/17 07:48 11/01/17 07:48 11/01/17 07:48 11/01/17 07:48 11/01/17 07:48 Intake and Output: 11/01/17 11/01/17 06:59 18:59 Intake Total 550 Output Total 850 Balance -300 - Medications Medications: Current Medications Albuterol/Ipratropium (Duoneb 3 Mg/0.5 Mg (3 Ml) Ud) 3 ml INH RQ4 [facility] Last Admin: 11/01/17 07:58 Dose: 3 ml Amlodipine Besylate (Norvasc) 5 mg PO DAILY [facility] Last Admin: 11/01/17 10:59 Dose: 5 mg Enoxaparin Sodium (Lovenox) 40 mg SC DAILY [facility] Last Admin: 11/01/17 10:59 Dose: 40 mg Glipizide (Glucotrol Xl) 5 mg PO DAILY [facility] Last Admin: 11/01/17 10:59 Dose: 5 mg Guaifenesin (Mucinex La) 600 mg PO BID [facility] Last Admin: 11/01/17 10:58 Dose: 600 mg Imipenem/Cilastatin Sodium 500 (mg/ Sodium Chloride) 100 mls @ 100 mls/hr IVPB Q6H [facility] Last Admin: 11/01/17 08:44 Dose: 100 mls/hr Gentamicin Sulfate 80 mg/ (Sodium Chloride) 102 mls @ 100 mls/hr IVPB Q8H [facility] Last Admin: 11/01/17 11:01 Dose: 100 mls/hr Insulin Glargine (Lantus) 10 unit SC [facility] Last Admin: 10/31/17 22:17 Dose: Not Given Insulin Human Regular (Novolin R) 0 unit SC ACHS [facility] PRN Reason: Protocol Last Admin: 11/01/17 08:30 Dose: 2 unit Lactic Acid (Lac-Hydrin 12% Lotion (225 G)) 1 gm EXT DAILY [facility] Last Admin: 11/01/17 11:00 Dose: 1 applic Methylprednisolone (Solu-Medrol) 40 mg IV Q12 [facility] Last Admin: 11/01/17 10:59 Dose: 40 mg Pantoprazole Sodium (Protonix Ec Tab) 40 mg PO DAILY [facility] Last Admin: 11/01/17 10:59 Dose: 40 mg Promethazine HCl/Codeine (Phenergan/Codeine Oral Syrup) 5 ml PO Q4 PRN PRN Reason: Cough Saccharomyces Boulardii (Florastor) 250 mg PO BID [facility] Last Admin: 11/01/17 10:59 Dose: 250 mg Fluticasone/Salmeterol (Advair Diskus 250/50) 1 puff INH RQ12 [facility] Last Admin: 11/01/17 07:58 Dose: 1 puff Tiotropium [place] (Spiriva) 18 mcg INH RQ24 [facility] Last Admin: 11/01/17 09:09 Dose: Not Given - Labs Labs: 11/01/17 07:52 11/01/17 07:52 - Constitutional Appears: No Acute Distress, Chronically Ill - Head Exam Head Exam: NORMAL INSPECTION, NORMOCEPHALIC - Eye Exam Eye Exam: EOMI, Normal appearance - ENT Exam ENT Exam: Mucous Membranes Moist, Normal Exam - Respiratory Exam Respiratory Exam: Rales, Rhonchi - Cardiovascular Exam Cardiovascular Exam: REGULAR RHYTHM - GI/Abdominal Exam GI & Abdominal Exam: Soft, Normal Bowel Sounds. absent: Guarding, Rigid, Tenderness - Neurological Exam Neurological Exam: Alert, Awake, Oriented x3 Neuro motor strength exam: Left Upper Extremity: 5, Right Upper Extremity: 5, Left Lower Extremity: 5, Right Lower Extremity: 5 - Psychiatric Exam Psychiatric exam: Normal Affect, Normal Mood - Skin Skin Exam: Normal Color, Warm Assessment and Plan - Assessment and Plan (Free Text) Assessment: 1) Leukocytosis, Pneumonia 11/01: Now in isolation room Patient sputum returned and positive for + MRSA and also + ESBL E coli. Abx now changed to Primaxin IV (day2) and Gentamicin IV (day 0), the blood cultures negative for 3 days Flu NEGATIVE, Mycoplasma pneumoniae IgM NEGATIVE, Legionella NEGATIVE Sputum Culture 10/28 - positive for ESBL E. Coli and MRSA 2) COPD exacerbation Atelectasis * 30 pack year smoking hx * Repeat CXR 10/30: Very small left pleural effusion. Otherwise unremarkable. * Duoneb Q4 scheduled * Advair 250/50 1 puff Q12H * Solumedrol 40 mg IV Q12H (taper) * Tiotropium 1 INH QD * Promethazine w codeine 5ml PO Q4H PRN cough * Encourage incentive spirometry * Mucinex 600mg PO BID * CT Chest (10/26/17): paraseptal emphysema in upper lobes, worse on the right and mild centrilobular emphysema in the lungs. No pneumothorax. No evidence of consolidation or pleural effusion * IV Abx: Azithromycin 500 mg IV daily (started 10/25) and Ceftriaxone 1 gm IV daily (started 10/25) - discontinued due to sputum culture positive for ESBL E.Coli and MRSA 3) History of Diabetes (controlled) 11/01: Recent accuchecks 130s to 190 range. He had one high of 333, at this time continue current regimen Hemoglobin A1c 10/11/17 was 6.2 Accuchecks AC and HS Glipizde 5mg PO daily ISS Lantus 10 units subqHS 4) History of PE * IVC filter in place * Patient is not on any therapuetic anticoagulation secondary to history of retroperitoneal bleed * CT Chest (10/26/17): paraseptal emphysema in upper lobes, worse on the right and mild centrilobular emphysema in the lungs. No pneumothorax. No evidence of consolidation or pleural effusion. 5) History of Left Inguinal Hernia * Ultrasound evaluation confirms * Evaluated by surgery-->Will need outpatient follow up for repair 6) Tobacco Abuse 11/01 Quite frankly I highly doubt he quit smoking as he's growing out MRSA and E coli like this. Claims he quit 2 months ago, prior smoking since age 13, 30 pack year smoking hx 7) Hypertension 11/01: Increase norvasc to 10mg PO QD 8) Prophylactic Measures * Protonix 40 PO daily * SCDs * Lovenox 40mg SC daily * Heart Healthy Diet with moderate consistent CHO * IVC filter * Florastor 250mg PO BID * Physical therapy eval
--- NOTE | 2017-11-01 12:40 | CP.PCM.PN ---
Subjective - Date & Time of Evaluation Date of Evaluation: 11/01/17 Time of Evaluation: 09:00 - Subjective Subjective: patient seen and examined. Still complaining of cough Less wheezing and shortness of breath Sputum positive for ESBL and MRSA On isolation Objective - Vital Signs/Intake and Output Vital Signs (last 24 hours): Temp Pulse Resp BP Pulse Ox 97.8 F 73 20 160/75 H 96 11/01/17 07:48 11/01/17 07:48 11/01/17 07:48 11/01/17 07:48 11/01/17 07:48 Intake and Output: 11/01/17 11/01/17 06:59 18:59 Intake Total 550 Output Total 850 Balance -300 - Medications Medications: Current Medications Albuterol/Ipratropium (Duoneb 3 Mg/0.5 Mg (3 Ml) Ud) 3 ml INH RQ4 [facility] Last Admin: 11/01/17 07:58 Dose: 3 ml Amlodipine Besylate (Norvasc) 5 mg PO DAILY [facility] Last Admin: 11/01/17 10:59 Dose: 5 mg Enoxaparin Sodium (Lovenox) 40 mg SC DAILY [facility] Last Admin: 11/01/17 10:59 Dose: 40 mg Glipizide (Glucotrol Xl) 5 mg PO DAILY [facility] Last Admin: 11/01/17 10:59 Dose: 5 mg Guaifenesin (Mucinex La) 600 mg PO BID [facility] Last Admin: 11/01/17 10:58 Dose: 600 mg Imipenem/Cilastatin Sodium 500 (mg/ Sodium Chloride) 100 mls @ 100 mls/hr IVPB Q6H [facility] Last Admin: 11/01/17 08:44 Dose: 100 mls/hr Gentamicin Sulfate 80 mg/ (Sodium Chloride) 102 mls @ 100 mls/hr IVPB Q8H [facility] Last Admin: 11/01/17 11:01 Dose: 100 mls/hr Insulin Glargine (Lantus) 10 unit SC HS [facility] Last Admin: 10/31/17 22:17 Dose: Not Given Insulin Human Regular (Novolin R) 0 unit SC ACHS [facility] PRN Reason: Protocol Last Admin: 11/01/17 12:30 Dose: 2 unit Lactic Acid (Lac-Hydrin 12% Lotion (225 G)) 1 gm EXT DAILY [facility] Last Admin: 11/01/17 11:00 Dose: 1 applic Methylprednisolone (Solu-Medrol) 40 mg IV Q12 [facility] Last Admin: 11/01/17 10:59 Dose: 40 mg Pantoprazole Sodium (Protonix Ec Tab) 40 mg PO DAILY [facility] Last Admin: 11/01/17 10:59 Dose: 40 mg Promethazine HCl/Codeine (Phenergan/Codeine Oral Syrup) 5 ml PO Q4 PRN PRN Reason: Cough Saccharomyces Boulardii (Florastor) 250 mg PO BID [facility] Last Admin: 11/01/17 10:59 Dose: 250 mg Fluticasone/Salmeterol (Advair Diskus 250/50) 1 puff INH RQ12 [facility] Last Admin: 11/01/17 07:58 Dose: 1 puff Tiotropium [place] (Spiriva) 18 mcg INH RQ24 [facility] Last Admin: 11/01/17 09:09 Dose: Not Given - Labs Labs: 11/01/17 07:52 11/01/17 07:52 - Head Exam Head Exam: ATRAUMATIC, NORMOCEPHALIC - ENT Exam ENT Exam: Mucous Membranes Moist - Neck Exam Neck Exam: Normal Inspection - Respiratory Exam Respiratory Exam: Rhonchi, Wheezes - Cardiovascular Exam Cardiovascular Exam: REGULAR RHYTHM - GI/Abdominal Exam GI & Abdominal Exam: Soft, Normal Bowel Sounds - Extremities Exam Extremities Exam: Normal Inspection - Neurological Exam Neurological Exam: Alert Assessment and Plan (1) Acute exacerbation of chronic obstructive pulmonary disease Assessment & Plan: continue IV antibiotics for ESBL Continue nebulizer treatment Taper steroids Status: Acute (2) S/P IVC filter Status: Acute
[2017-11-01] MEDS: (Lantus) Insulin Glargine, Recombinant SC SCH (21:15)
[2017-11-02] MEDS: Albuterol-Ipratrop 3 mg / 0.5 (3 ml) UD INH SCH ×7 (00:04→23:52)
[2017-11-02 07:57] LABS: BASO % 0.2 % (0.0-2.0); EOS % 0.3 % (0.0-4.0); HEMOGLOBIN 11.7 g/dL (12.0-18.0); LYMPH # 2.4 K/uL (1.0-4.3); LYMPH % 21.7 % (20.0-40.0); MEAN CELL VOLUME 86.3 fL (80.0-94.0); MEAN CORPUSCULAR HEMOGLOBIN 28.7 pg (27.0-31.0); MEAN CORPUSCULAR HGB CONC 33.3 g/dL (33.0-37.0); MEAN PLATELET VOLUME 9.1 fL (7.2-11.7); MONO # 1.1 K/uL (0.0-0.8); MONO % 9.7 % (0.0-10.0); NEUT # 7.5 K/uL (1.8-7.0); NEUT % 68.1 % (50.0-75.0); NRBC % 0.2 % (0.0-2.0); RBC 4.08 Mil/uL (4.40-5.90); RED CELL DISTRIBUTION WIDTH 16.1 % (11.5-14.5)
[2017-11-02] MEDS: (Novolin R) Insulin Human Regular 100 units/ml vial SC SCH ×4 (08:17→21:46)
[2017-11-02] MEDS: Tiotropium 18 mcg Cap For Inhalation INH SCH (08:23)
[2017-11-02] MEDS: Fluticasone-Salmeterol 250-50mcg Diskus INH SCH ×2 (08:24→20:18)
[2017-11-02 08:42] LABS: ALB/GLOB RATIO 1.2 (1.0-2.1); ALBUMIN 2.8 g/dL (3.5-5.0); ALT/SGPT 29 U/L (21-72); AST/SGOT 19 U/L (17-59); BLOOD UREA NITROGEN 24 mg/dL (9-20); CALCIUM 8.1 mg/dl (8.6-10.4); GFR AFRICAN-AMERICAN > 60; GFR NON-AFRICAN AMERICAN > 60
[2017-11-02] MEDS: Saccharomyces Boulardi 250 mg Cap PO SCH ×2 (10:39→18:08)
[2017-11-02] MEDS: Pantoprazole 40 mg EC Tab PO SCH (10:39)
[2017-11-02] MEDS: Enoxaparin 40 mg Syringe SC SCH (10:39)
[2017-11-02] MEDS: GlipiZIDE 5 mg SR Tab PO SCH (10:39)
[2017-11-02] MEDS: guaiFENesin 600 mg ER Tab PO SCH ×2 (10:39→18:09)
[2017-11-02] MEDS: Ammonium Lactate 12% Lotion (225 g) EXT SCH (10:40)
--- NOTE | 2017-11-02 11:32 | CP.PCM.PN ---
Subjective - Date & Time of Evaluation Date of Evaluation: 11/02/17 Time of Evaluation: 11:00 - Subjective Subjective: Patient was seen and examined by me. Currently in the isolation/contact precaution room. He reports still has thick brown sputum. The sputum that grew out E coli ESBL and MRSA was from 10/28 so will check another culture today On exam there are no rales or rhonchi - but he does have bilateral wheezing. Objective - Vital Signs/Intake and Output Vital Signs (last 24 hours): Temp Pulse Resp BP Pulse Ox 97.5 F L 85 20 137/80 97 11/02/17 08:37 11/02/17 08:37 11/02/17 08:37 11/02/17 08:37 11/02/17 08:37 Intake and Output: 11/02/17 11/02/17 06:59 18:59 Intake Total 1030 Output Total 600 Balance 430 - Medications Medications: Current Medications Albuterol/Ipratropium (Duoneb 3 Mg/0.5 Mg (3 Ml) Ud) 3 ml INH RQ4 [facility] Last Admin: 11/02/17 08:23 Dose: 3 ml Amlodipine Besylate (Norvasc) 5 mg PO DAILY [facility] Last Admin: 11/02/17 10:39 Dose: 5 mg Enoxaparin Sodium (Lovenox) 40 mg SC DAILY [facility] Last Admin: 11/02/17 10:39 Dose: 40 mg Glipizide (Glucotrol Xl) 5 mg PO DAILY [facility] Last Admin: 11/02/17 10:39 Dose: 5 mg Guaifenesin (Mucinex La) 600 mg PO BID [facility] Last Admin: 11/02/17 10:39 Dose: 600 mg Imipenem/Cilastatin Sodium 500 (mg/ Sodium Chloride) 100 mls @ 100 mls/hr IVPB Q6H [facility] Last Admin: 11/02/17 08:50 Dose: 100 mls/hr Gentamicin Sulfate 80 mg/ (Sodium Chloride) 102 mls @ 100 mls/hr IVPB Q8H [facility] Last Admin: 11/02/17 10:40 Dose: 100 mls/hr Insulin Glargine (Lantus) 10 unit SC HS [facility] Last Admin: 11/01/17 21:15 Dose: 10 u Insulin Human Regular (Novolin R) 0 unit SC ACHS [facility] PRN Reason: Protocol Last Admin: 11/02/17 08:17 Dose: Not Given Lactic Acid (Lac-Hydrin 12% Lotion (225 G)) 1 gm EXT DAILY [facility] Last Admin: 11/02/17 10:40 Dose: 1 applic Pantoprazole Sodium (Protonix Ec Tab) 40 mg PO DAILY [facility] Last Admin: 11/02/17 10:39 Dose: 40 mg Promethazine HCl/Codeine (Phenergan/Codeine Oral Syrup) 5 ml PO Q4 PRN PRN Reason: Cough Saccharomyces Boulardii (Florastor) 250 mg PO BID [facility] Last Admin: 11/02/17 10:39 Dose: 250 mg Fluticasone/Salmeterol (Advair Diskus 250/50) 1 puff INH RQ12 [facility] Last Admin: 11/02/17 08:24 Dose: 1 puff Tiotropium [place] (Spiriva) 18 mcg INH RQ24 [facility] Last Admin: 11/02/17 08:23 Dose: 18 mcg - Labs Labs: 11/02/17 07:43 11/02/17 07:43 - Constitutional Appears: Unkempt, Chronically Ill - Head Exam Head Exam: ATRAUMATIC, NORMAL INSPECTION, NORMOCEPHALIC - Eye Exam Eye Exam: EOMI, Normal appearance - ENT Exam ENT Exam: Mucous Membranes Moist - Respiratory Exam Respiratory Exam: Wheezes, NORMAL BREATHING PATTERN - Cardiovascular Exam Cardiovascular Exam: REGULAR RHYTHM - GI/Abdominal Exam GI & Abdominal Exam: Soft, Normal Bowel Sounds - Neurological Exam Neurological Exam: Alert, Awake, Oriented x3 Neuro motor strength exam: Left Upper Extremity: 5, Right Upper Extremity: 5, Left Lower Extremity: 5, Right Lower Extremity: 5 - Psychiatric Exam Psychiatric exam: Normal Affect, Normal Mood - Skin Skin Exam: Normal Color, Warm Assessment and Plan - Assessment and Plan (Free Text) Assessment: 1) Leukocytosis, Pneumonia 11/02: Recheck sputum today, this is Day 4 of Primaxin and Day 1 of Gentamicin 11/01: Now in isolation room Patient sputum returned and positive for + MRSA and also + ESBL E coli. Abx now changed to Primaxin IV and Gentamicin IV, the blood cultures negative for 3 days Flu NEGATIVE, Mycoplasma pneumoniae IgM NEGATIVE, Legionella NEGATIVE Sputum Culture 10/28 - positive for ESBL E. Coli and MRSA 2) COPD exacerbation Atelectasis * 30 pack year smoking hx * Repeat CXR 10/30: Very small left pleural effusion. Otherwise unremarkable. * Duoneb Q4 scheduled * Advair 250/50 1 puff Q12H * Solumedrol 40 mg IV Q12H (taper) * Tiotropium 1 INH QD * Promethazine w codeine 5ml PO Q4H PRN cough * Encourage incentive spirometry * Mucinex 600mg PO BID * CT Chest (10/26/17): paraseptal emphysema in upper lobes, worse on the right and mild centrilobular emphysema in the lungs. No pneumothorax. No evidence of consolidation or pleural effusion * IV Abx: Azithromycin 500 mg IV daily (started 10/25) and Ceftriaxone 1 gm IV daily (started 10/25) - discontinued due to sputum culture positive for ESBL E.Coli and MRSA 3) History of Diabetes (controlled) 11/01: Recent accuchecks 130s to 190 range. He had one high of 333, at this time continue current regimen Hemoglobin A1c 10/11/17 was 6.2 Accuchecks AC and HS Glipizde 5mg PO daily ISS Lantus 10 units subqHS 4) History of PE IVC filter in place Patient is not on any therapuetic anticoagulation secondary to history of retroperitoneal bleed CT Chest (10/26/17): paraseptal emphysema in upper lobes, worse on the right and mild centrilobular emphysema in the lungs. No pneumothorax. No evidence of consolidation or pleural effusion. 5) History of Left Inguinal Hernia * Ultrasound evaluation confirms * Evaluated by surgery-->Will need outpatient follow up for repair 6) Tobacco Abuse 11/01 Quite frankly I highly doubt he quit smoking as he's growing out MRSA and E coli like this. Claims he quit 2 months ago, prior smoking since age 13, 30 pack year smoking hx 7) Hypertension 11/01: Increase norvasc to 10mg PO QD 8) Prophylactic Measures * Protonix 40 PO daily * SCDs * Lovenox 40mg SC daily * Heart Healthy Diet with moderate consistent CHO * IVC filter * Florastor 250mg PO BID * Physical therapy eval
[2017-11-02] MEDS: (Lantus) Insulin Glargine, Recombinant SC SCH (21:46)
[2017-11-03] MEDS: Albuterol-Ipratrop 3 mg / 0.5 (3 ml) UD INH SCH ×5 (03:10→19:38)
[2017-11-03] MEDS: (Novolin R) Insulin Human Regular 100 units/ml vial SC SCH ×4 (08:08→22:00)
[2017-11-03] MEDS: Tiotropium 18 mcg Cap For Inhalation INH SCH (09:41)
[2017-11-03] MEDS: Fluticasone-Salmeterol 250-50mcg Diskus INH SCH ×2 (09:42→19:38)
[2017-11-03] MEDS: Enoxaparin 40 mg Syringe SC SCH (09:58)
[2017-11-03] MEDS: GlipiZIDE 5 mg SR Tab PO SCH (09:58)
[2017-11-03] MEDS: Saccharomyces Boulardi 250 mg Cap PO SCH ×2 (09:58→17:46)
[2017-11-03] MEDS: guaiFENesin 600 mg ER Tab PO SCH ×2 (09:58→17:46)
[2017-11-03] MEDS: Pantoprazole 40 mg EC Tab PO SCH (09:58)
[2017-11-03] MEDS: Ammonium Lactate 12% Lotion (225 g) EXT SCH (10:00)
[2017-11-03 14:39] LABS: ALB/GLOB RATIO 1.2 (1.0-2.1); ALBUMIN 2.9 g/dL (3.5-5.0); ALT/SGPT 26 U/L (21-72); AST/SGOT 36 U/L (17-59); BLOOD UREA NITROGEN 25 mg/dL (9-20); CALCIUM 8.1 mg/dl (8.6-10.4); GFR AFRICAN-AMERICAN > 60; GFR NON-AFRICAN AMERICAN > 60
--- NOTE | 2017-11-03 14:59 | CP.PCM.PN ---
<Brett Gill - Last Filed: 11/03/17 15:06> Subjective - Date & Time of Evaluation Date of Evaluation: 11/03/17 Time of Evaluation: 14:59 - Subjective Subjective: PGY-[address] Preciado. No acute events noted overnight. Currently in the isolation/contact precaution room due to E coli ESBL and MRSA. He reports still has thick brown sputum. He denies chest pain, abdominal pain, shortness of breath, fever, chills, nausea, vomiting. Objective - Vital Signs/Intake and Output Vital Signs (last 24 hours): Temp Pulse Resp BP Pulse Ox 98.2 F 86 20 137/75 98 11/03/17 08:00 11/03/17 08:00 11/03/17 08:00 11/03/17 08:00 11/03/17 08:00 Intake and Output: 11/03/17 11/03/17 06:59 18:59 Intake Total 400 900 Output Total 500 Balance -100 900 - Medications Medications: Current Medications Albuterol/Ipratropium (Duoneb 3 Mg/0.5 Mg (3 Ml) Ud) 3 ml INH RQ4 [facility] Last Admin: 11/03/17 11:15 Dose: 3 ml Amlodipine Besylate (Norvasc) 5 mg PO DAILY [facility] Last Admin: 11/03/17 09:58 Dose: 5 mg Enoxaparin Sodium (Lovenox) 40 mg SC DAILY [facility] Last Admin: 11/03/17 09:58 Dose: 40 mg Glipizide (Glucotrol Xl) 5 mg PO DAILY [facility] Last Admin: 11/03/17 09:58 Dose: 5 mg Guaifenesin (Mucinex La) 600 mg PO BID [facility] Last Admin: 11/03/17 09:58 Dose: 600 mg Imipenem/Cilastatin Sodium 500 (mg/ Sodium Chloride) 100 mls @ 100 mls/hr IVPB Q6H [facility] Last Admin: 11/03/17 14:02 Dose: 100 mls/hr Gentamicin Sulfate 80 mg/ (Sodium Chloride) 102 mls @ 100 mls/hr IVPB Q8H [facility] Last Admin: 11/03/17 09:57 Dose: 100 mls/hr Insulin Glargine (Lantus) 10 unit SC [facility] Last Admin: 11/02/17 21:46 Dose: Not Given Insulin Human Regular (Novolin R) 0 unit SC ACHS [facility] PRN Reason: Protocol Last Admin: 11/03/17 11:48 Dose: Not Given Lactic Acid (Lac-Hydrin 12% Lotion (225 G)) 1 gm EXT DAILY [facility] Last Admin: 11/03/17 10:00 Dose: 1 applic Pantoprazole Sodium (Protonix Ec Tab) 40 mg PO DAILY [facility] Last Admin: 11/03/17 09:58 Dose: 40 mg Promethazine HCl/Codeine (Phenergan/Codeine Oral Syrup) 5 ml PO Q4 PRN PRN Reason: Cough Saccharomyces Boulardii (Florastor) 250 mg PO BID [facility] Last Admin: 11/03/17 09:58 Dose: 250 mg Fluticasone/Salmeterol (Advair Diskus 250/50) 1 puff INH RQ12 [facility] Last Admin: 11/03/17 09:42 Dose: 1 puff Tiotropium [place] (Spiriva) 18 mcg INH RQ24 [facility] Last Admin: 11/03/17 09:41 Dose: Not Given - Labs Labs: 11/02/17 07:43 11/03/17 14:08 - Additional Findings Additional findings: - Constitutional Appears: Unkempt, Chronically Ill - Head Exam Head Exam: ATRAUMATIC, NORMAL INSPECTION, NORMOCEPHALIC - Eye Exam Eye Exam: EOMI, Normal appearance - ENT Exam ENT Exam: Mucous Membranes Moist - Respiratory Exam Respiratory Exam: Wheezes, NORMAL BREATHING PATTERN - Cardiovascular Exam Cardiovascular Exam: REGULAR RHYTHM - GI/Abdominal Exam GI & Abdominal Exam: Soft, Normal Bowel Sounds - Neurological Exam Neurological Exam: Alert, Awake, Oriented x3 Neuro motor strength exam: Left Upper Extremity: 5, Right Upper Extremity: 5, Left Lower Extremity: 5, Right Lower Extremity: 5 - Psychiatric Exam Psychiatric exam: Normal Affect, Normal Mood - Skin Skin Exam: Normal Color, Warm Assessment and Plan - Assessment and Plan (Free Text) Assessment: 1) COPD exacerbation Atelectasis * 30 pack year smoking hx * Pulmonary consult, Dr Hernández * Encourage incentive spirometry * Blood culture 10/28 negative up to date * Sputum culture 10/28 (+) for ESBL E.Coli and MRSA * On contact isolation * F/U Sputum culture 11/03/17 * Imaging: * CXR 10/24 - No acute findings. * Repeat CXR 10/27: Both lower lobe atelectasis. No lobar pneumonia. * Repeat CXR 10/30: Very small left pleural effusion. Otherwise unremarkable. * CT Chest (10/26/17): paraseptal emphysema in upper lobes, worse on the right and mild centrilobular emphysema in the lungs. No pneumothorax. No evidence of consolidation or pleural effusion * Meds: * Duoneb Q4 scheduled * Advair 250/50 1 puff Q12H * Solumedrol 40 mg IV Q12H (taper completed) * Tiotropium 1 INH QD * Promethazine w codeine 5ml PO Q4H PRN cough * Mucinex 600mg PO BID * IV Abx: Azithromycin 500 mg IV daily (started 10/25) and Ceftriaxone 1 gm IV daily (started 10/25) - discontinued due to sputum culture positive for ESBL E.Coli and MRSA. We gave Vanco 1g IV BID on 10/31 however we switched to Gentamycin as this has better coverage. * Started on Primaxin 500mg IVPB QID (started on 10/31/17) * Started on Gentamicin 80mg IVPB TID (started 11/01/17) * Florastor 250mg PO BID 2) Leukocytosis - improving * no bandemia * Procalcitonin 0.05 (L) * Flu NEGATIVE, Mycoplasma pneumoniae IgM NEGATIVE, Legionella NEGATIVE * Blood Culture 10/28 - negative up to date * Sputum Culture 10/28 - positive for ESBL E. Coli and MRSA * Started on Primaxin 500mg IVPB q6h (started on 10/31/17) * Started on Gentamicin 80mg IVPB TID (started 11/01/17) * Florastor 250mg PO BID * F/U Sputum culture 11/03/17 3) History of Diabetes (controlled) * Hemoglobin A1c 10/11/17 was 6.2 * Accuchecks AC and HS * Glipizde 5mg PO daily * ISS * Lantus 10 units subqHS 4) History of PE * IVC filter in place * Patient is not on any therapuetic anticoagulation secondary to history of retroperitoneal bleed * CT Chest (10/26/17): paraseptal emphysema in upper lobes, worse on the right and mild centrilobular emphysema in the lungs. No pneumothorax. No evidence of consolidation or pleural effusion. 5) History of Left Inguinal Hernia * Ultrasound evaluation confirms * Evaluated by surgery-->Will need outpatient follow up for repair 6) Tobacco Abuse * Quit 2 months ago, prior smoking since age 13, 30 pack year smoking hx * Start Nictone patch q daily 7) Hypertension * Norvasc 5mg PO QD 8) Prophylactic Measures * Protonix 40 PO daily * SCDs * Lovenox 40mg SC daily * Heart Healthy Diet with moderate consistent CHO * IVC filter * Physical therapy eval <Charles Preciado H - Last Filed: 11/03/17 15:58> Objective - Vital Signs/Intake and Output Vital Signs (last 24 hours): Temp Pulse Resp BP Pulse Ox 98.2 F 86 20 137/75 98 11/03/17 08:00 11/03/17 08:00 11/03/17 08:00 11/03/17 08:00 11/03/17 08:00 Intake and Output: 11/03/17 11/03/17 06:59 18:59 Intake Total 400 900 Output Total 500 Balance -100 900 - Medications Medications: Current Medications Albuterol/Ipratropium (Duoneb 3 Mg/0.5 Mg (3 Ml) Ud) 3 ml INH RQ4 [facility] Last Admin: 11/03/17 11:15 Dose: 3 ml Amlodipine Besylate (Norvasc) 5 mg PO DAILY [facility] Last Admin: 11/03/17 09:58 Dose: 5 mg Enoxaparin Sodium (Lovenox) 40 mg SC DAILY [facility] Last Admin: 11/03/17 09:58 Dose: 40 mg Glipizide (Glucotrol Xl) 5 mg PO DAILY [facility] Last Admin: 11/03/17 09:58 Dose: 5 mg Guaifenesin (Mucinex La) 600 mg PO BID [facility] Last Admin: 11/03/17 09:58 Dose: 600 mg Imipenem/Cilastatin Sodium 500 (mg/ Sodium Chloride) 100 mls @ 100 mls/hr IVPB Q6H [facility] Last Admin: 11/03/17 14:02 Dose: 100 mls/hr Gentamicin Sulfate 80 mg/ (Sodium Chloride) 102 mls @ 100 mls/hr IVPB Q8H [facility] Last Admin: 11/03/17 09:57 Dose: 100 mls/hr Insulin Glargine (Lantus) 10 unit SC [facility] Last Admin: 11/02/17 21:46 Dose: Not Given Insulin Human Regular (Novolin R) 0 unit SC ACHS [facility] PRN Reason: Protocol Last Admin: 11/03/17 11:48 Dose: Not Given Lactic Acid (Lac-Hydrin 12% Lotion (225 G)) 1 gm EXT DAILY [facility] Last Admin: 11/03/17 10:00 Dose: 1 applic Pantoprazole Sodium (Protonix Ec Tab) 40 mg PO DAILY [facility] Last Admin: 11/03/17 09:58 Dose: 40 mg Promethazine HCl/Codeine (Phenergan/Codeine Oral Syrup) 5 ml PO Q4 PRN PRN Reason: Cough Saccharomyces Boulardii (Florastor) 250 mg PO BID [facility] Last Admin: 11/03/17 09:58 Dose: 250 mg Fluticasone/Salmeterol (Advair Diskus 250/50) 1 puff INH RQ12 [facility] Last Admin: 11/03/17 09:42 Dose: 1 puff Tiotropium [place] (Spiriva) 18 mcg INH RQ24 [facility] Last Admin: 11/03/17 09:41 Dose: Not Given - Labs Labs: 11/02/17 07:43 11/03/17 14:08 Attending/Attestation - Attestation I have personally seen and examined this patient.: Yes I have fully participated in the care of the patient.: Yes I have reviewed all pertinent clinical information, including history, physical exam and plan: Yes Notes (Text): 11/03/17 15:52 Medical attending: The patient was out of bed to chair. He reports still coughing up thick pheglm He remains on the IV primaxin and IV gentamicin for the ESBL+ E coli as well as the MRSA + sputum At some point will need sputum culture repeated thank you Charles Preciado
--- NOTE | 2017-11-03 15:38 | CP.PCM.PN ---
Subjective - Date & Time of Evaluation Date of Evaluation: 11/03/17 Time of Evaluation: 12:00 - Subjective Subjective: the patient seen and examined Cough and breathing much improved Being treated for VRE and MRSA Still wheezing Afebrile no chest pain Taper steroids Objective - Vital Signs/Intake and Output Vital Signs (last 24 hours): Temp Pulse Resp BP Pulse Ox 98.2 F 86 20 137/75 98 11/03/17 08:00 11/03/17 08:00 11/03/17 08:00 11/03/17 08:00 11/03/17 08:00 Intake and Output: 11/03/17 11/03/17 06:59 18:59 Intake Total 400 900 Output Total 500 Balance -100 900 - Medications Medications: Current Medications Albuterol/Ipratropium (Duoneb 3 Mg/0.5 Mg (3 Ml) Ud) 3 ml INH RQ4 [facility] Last Admin: 11/03/17 11:15 Dose: 3 ml Amlodipine Besylate (Norvasc) 5 mg PO DAILY [facility] Last Admin: 11/03/17 09:58 Dose: 5 mg Enoxaparin Sodium (Lovenox) 40 mg SC DAILY [facility] Last Admin: 11/03/17 09:58 Dose: 40 mg Glipizide (Glucotrol Xl) 5 mg PO DAILY [facility] Last Admin: 11/03/17 09:58 Dose: 5 mg Guaifenesin (Mucinex La) 600 mg PO BID [facility] Last Admin: 11/03/17 09:58 Dose: 600 mg Imipenem/Cilastatin Sodium 500 (mg/ Sodium Chloride) 100 mls @ 100 mls/hr IVPB Q6H [facility] Last Admin: 11/03/17 14:02 Dose: 100 mls/hr Gentamicin Sulfate 80 mg/ (Sodium Chloride) 102 mls @ 100 mls/hr IVPB Q8H [facility] Last Admin: 11/03/17 09:57 Dose: 100 mls/hr Insulin Glargine (Lantus) 10 unit SC HS [facility] Last Admin: 11/02/17 21:46 Dose: Not Given Insulin Human Regular (Novolin R) 0 unit SC ACHS [facility] PRN Reason: Protocol Last Admin: 11/03/17 11:48 Dose: Not Given Lactic Acid (Lac-Hydrin 12% Lotion (225 G)) 1 gm EXT DAILY [facility] Last Admin: 11/03/17 10:00 Dose: 1 applic Pantoprazole Sodium (Protonix Ec Tab) 40 mg PO DAILY [facility] Last Admin: 11/03/17 09:58 Dose: 40 mg Promethazine HCl/Codeine (Phenergan/Codeine Oral Syrup) 5 ml PO Q4 PRN PRN Reason: Cough Saccharomyces Boulardii (Florastor) 250 mg PO BID [facility] Last Admin: 11/03/17 09:58 Dose: 250 mg Fluticasone/Salmeterol (Advair Diskus 250/50) 1 puff INH RQ12 [facility] Last Admin: 11/03/17 09:42 Dose: 1 puff Tiotropium [place] (Spiriva) 18 mcg INH RQ24 [facility] Last Admin: 11/03/17 09:41 Dose: Not Given - Labs Labs: 11/02/17 07:43 11/03/17 14:08 Assessment and Plan (1) Acute exacerbation of chronic obstructive pulmonary disease Status: Acute (2) S/P IVC filter Status: Acute
[2017-11-03 16:52] LABS: BASO # 0.1 K/uL (0.0-0.2); BASO % 1.3 % (0.0-2.0); EOS # 0.2 K/uL (0.0-0.7); HEMOGLOBIN 13.4 g/dL (12.0-18.0); LYMPH # 2.3 K/uL (1.0-4.3); LYMPH % 21.1 % (20.0-40.0); MEAN CELL VOLUME 85.8 fL (80.0-94.0); MEAN CORPUSCULAR HGB CONC 33.7 g/dL (33.0-37.0); MEAN PLATELET VOLUME 8.3 fL (7.2-11.7); MONO % 9.1 % (0.0-10.0); NEUT # 7.3 K/uL (1.8-7.0); NEUT % 66.5 % (50.0-75.0); NRBC % 0.2 % (0.0-2.0); RBC 4.62 Mil/uL (4.40-5.90); RED CELL DISTRIBUTION WIDTH 15.9 % (11.5-14.5); WHITE BLOOD COUNT 10.9 K/uL (4.8-10.8)
[2017-11-03] MEDS: (Lantus) Insulin Glargine, Recombinant SC SCH (23:04)
[2017-11-04] MEDS: Albuterol-Ipratrop 3 mg / 0.5 (3 ml) UD INH SCH ×7 (01:38→23:42)
[2017-11-04 06:44] LABS: BASO % 0.4 % (0.0-2.0); EOS # 0.2 K/uL (0.0-0.7); EOS % 2.7 % (0.0-4.0); HEMOGLOBIN 13.1 g/dL (12.0-18.0); LYMPH # 1.7 K/uL (1.0-4.3); LYMPH % 18.1 % (20.0-40.0); MEAN CELL VOLUME 85.8 fL (80.0-94.0); MEAN CORPUSCULAR HEMOGLOBIN 29.3 pg (27.0-31.0); MEAN CORPUSCULAR HGB CONC 34.1 g/dL (33.0-37.0); MEAN PLATELET VOLUME 8.6 fL (7.2-11.7); MONO % 10.8 % (0.0-10.0); NEUT # 6.3 K/uL (1.8-7.0); NRBC % 0.2 % (0.0-2.0); RBC 4.48 Mil/uL (4.40-5.90); RED CELL DISTRIBUTION WIDTH 16.3 % (11.5-14.5); WHITE BLOOD COUNT 9.3 K/uL (4.8-10.8)
[2017-11-04 06:52] LABS: ALB/GLOB RATIO 1.2 (1.0-2.1); ALBUMIN 3.1 g/dL (3.5-5.0); ALT/SGPT 32 U/L (21-72); AST/SGOT 22 U/L (17-59); BLOOD UREA NITROGEN 22 mg/dL (9-20); CALCIUM 8.6 mg/dl (8.6-10.4); GFR AFRICAN-AMERICAN > 60; GFR NON-AFRICAN AMERICAN > 60
[2017-11-04] MEDS: (Novolin R) Insulin Human Regular 100 units/ml vial SC SCH ×4 (08:06→21:45)
[2017-11-04] MEDS: GlipiZIDE 5 mg SR Tab PO SCH (09:24)
[2017-11-04] MEDS: Saccharomyces Boulardi 250 mg Cap PO SCH ×2 (09:24→18:00)
[2017-11-04] MEDS: guaiFENesin 600 mg ER Tab PO SCH ×2 (09:24→17:44)
[2017-11-04] MEDS: Enoxaparin 40 mg Syringe SC SCH (09:24)
[2017-11-04] MEDS: Pantoprazole 40 mg EC Tab PO SCH (09:24)
[2017-11-04] MEDS: Fluticasone-Salmeterol 250-50mcg Diskus INH SCH ×2 (09:51→20:11)
[2017-11-04] MEDS: Tiotropium 18 mcg Cap For Inhalation INH SCH (09:51)
--- NOTE | 2017-11-04 10:15 | CP.PCM.PN ---
<Brett Gill R - Last Filed: 11/04/17 16:04> Subjective - Date & Time of Evaluation Date of Evaluation: 11/04/17 Time of Evaluation: 09:55 - Subjective Subjective: PGY-[address] Baird No acute events noted overnight. Currently in the isolation/contact precaution room due to E coli ESBL and MRSA. He reports still has thick brown sputum. He denies chest pain, abdominal pain, shortness of breath, fever, chills, nausea, vomiting. Objective - Vital Signs/Intake and Output Vital Signs (last 24 hours): Temp Pulse Resp BP Pulse Ox 98.4 F 94 H 20 135/74 97 11/04/17 08:18 11/04/17 08:18 11/04/17 08:18 11/04/17 08:18 11/04/17 08:18 Intake and Output: 11/04/17 11/04/17 06:59 18:59 Intake Total 850 Balance 850 - Medications Medications: Current Medications Albuterol/Ipratropium (Duoneb 3 Mg/0.5 Mg (3 Ml) Ud) 3 ml INH RQ4 [facility] Last Admin: 11/04/17 05:26 Dose: Not Given Amlodipine Besylate (Norvasc) 5 mg PO DAILY [facility] Last Admin: 11/04/17 09:24 Dose: 5 mg Enoxaparin Sodium (Lovenox) 40 mg SC DAILY [facility] Last Admin: 11/04/17 09:24 Dose: 40 mg Glipizide (Glucotrol Xl) 5 mg PO DAILY [facility] Last Admin: 11/04/17 09:24 Dose: 5 mg Guaifenesin (Mucinex La) 600 mg PO BID [facility] Last Admin: 11/04/17 09:24 Dose: 600 mg Imipenem/Cilastatin Sodium 500 (mg/ Sodium Chloride) 100 mls @ 100 mls/hr IVPB Q6H [facility] Last Admin: 11/04/17 08:51 Dose: 100 mls/hr Gentamicin Sulfate 80 mg/ (Sodium Chloride) 102 mls @ 100 mls/hr IVPB Q8H [facility] Last Admin: 11/04/17 09:31 Dose: 100 mls/hr Insulin Glargine (Lantus) 10 unit SC HS [facility] Last Admin: 11/03/17 23:04 Dose: Not Given Insulin Human Regular (Novolin R) 0 unit SC ACHS [facility] PRN Reason: Protocol Last Admin: 11/04/17 08:06 Dose: Not Given Lactic Acid (Lac-Hydrin 12% Lotion (225 G)) 1 gm EXT DAILY [facility] Last Admin: 11/03/17 10:00 Dose: 1 applic Pantoprazole Sodium (Protonix Ec Tab) 40 mg PO DAILY [facility] Last Admin: 11/04/17 09:24 Dose: 40 mg Promethazine HCl/Codeine (Phenergan/Codeine Oral Syrup) 5 ml PO Q4 PRN PRN Reason: Cough Saccharomyces Boulardii (Florastor) 250 mg PO BID [facility] Last Admin: 11/04/17 09:24 Dose: 250 mg Fluticasone/Salmeterol (Advair Diskus 250/50) 1 puff INH RQ12 [facility] Last Admin: 11/04/17 09:51 Dose: Not Given Tiotropium [place] (Spiriva) 18 mcg INH RQ24 [facility] Last Admin: 11/04/17 09:51 Dose: Not Given - Labs Labs: 11/04/17 06:28 11/04/17 06:28 - Additional Findings Additional findings: - Constitutional Appears: Unkempt, Chronically Ill - Head Exam Head Exam: ATRAUMATIC, NORMAL INSPECTION, NORMOCEPHALIC - Eye Exam Eye Exam: EOMI, Normal appearance - ENT Exam ENT Exam: Mucous Membranes Moist - Respiratory Exam Respiratory Exam: Wheezes, NORMAL BREATHING PATTERN - Cardiovascular Exam Cardiovascular Exam: REGULAR RHYTHM - GI/Abdominal Exam GI & Abdominal Exam: Soft, Normal Bowel Sounds - Neurological Exam Neurological Exam: Alert, Awake, Oriented x3 Neuro motor strength exam: Left Upper Extremity: 5, Right Upper Extremity: 5, Left Lower Extremity: 5, Right Lower Extremity: 5 - Psychiatric Exam Psychiatric exam: Normal Affect, Normal Mood - Skin Skin Exam: Normal Color, Warm Assessment and Plan - Assessment and Plan (Free Text) Assessment: 1) COPD exacerbation Atelectasis * 30 pack year smoking hx * Pulmonary consult, Dr Hernández * Encourage incentive spirometry * Blood culture 10/28 negative up to date * Sputum culture 10/28 (+) for ESBL E.Coli and MRSA * On contact isolation * F/U Sputum culture 11/03/17 * Imaging: * CXR 10/24 - No acute findings. * Repeat CXR 12/25: Both lower lobe atelectasis. No lobar pneumonia. * Repeat CXR 10/30: Very small left pleural effusion. Otherwise unremarkable. * CT Chest (10/26/17): paraseptal emphysema in upper lobes, worse on the right and mild centrilobular emphysema in the lungs. No pneumothorax. No evidence of consolidation or pleural effusion * Meds: * Duoneb Q4 scheduled * Advair 250/50 1 puff Q12H * Solumedrol 40 mg IV Q12H -> Start 8 day prednisone taper 11/04/2017 * Tiotropium 1 INH QD * Promethazine w codeine 5ml PO Q4H PRN cough * Mucinex 600mg PO BID * IV Abx: Azithromycin 500 mg IV daily (started 10/25) and Ceftriaxone 1 gm IV daily (started 10/25) - discontinued due to sputum culture positive for ESBL E.Coli and MRSA. We gave Vanco 1g IV BID on 10/31 however we switched to Gentamycin as this has better coverage. * Started on Primaxin 500mg IVPB QID (started on 10/31/17) * Started on Gentamicin 80mg IVPB TID (started 11/01/17) * Florastor 250mg PO BID 2) Leukocytosis - improving * no bandemia * Procalcitonin 0.05 (L) * Flu NEGATIVE, Mycoplasma pneumoniae IgM NEGATIVE, Legionella NEGATIVE * Blood Culture 10/28 - negative up to date * Sputum Culture 10/28 - positive for ESBL E. Coli and MRSA * Started on Primaxin 500mg IVPB q6h (started on 10/31/17) * Started on Gentamicin 80mg IVPB TID (started 11/01/17) * Florastor 250mg PO BID * F/U Sputum culture 11/03/17 3) History of Diabetes (controlled) * Hemoglobin A1c 10/11/17 was 6.2 * Accuchecks AC and HS * Glipizde 5mg PO daily * ISS * Lantus 10 units subqHS 4) History of PE * IVC filter in place * Patient is not on any therapuetic anticoagulation secondary to history of retroperitoneal bleed * CT Chest (10/26/17): paraseptal emphysema in upper lobes, worse on the right and mild centrilobular emphysema in the lungs. No pneumothorax. No evidence of consolidation or pleural effusion. 5) History of Left Inguinal Hernia * Ultrasound evaluation confirms * Evaluated by surgery-->Will need outpatient follow up for repair 6) Tobacco Abuse * Quit 2 months ago, prior smoking since age 13, 30 pack year smoking hx * Start Nictone patch q daily 7) Hypertension * Norvasc 5mg PO QD 8) Prophylactic Measures * Protonix 40 PO daily * SCDs * Lovenox 40mg SC daily * Heart Healthy Diet with moderate consistent CHO * IVC filter * Physical therapy eval <Mansi Baird - Last Filed: 11/06/17 18:08> Objective - Vital Signs/Intake and Output Vital Signs (last 24 hours): Temp Pulse Resp BP Pulse Ox 97.6 F 74 20 117/68 95 11/06/17 15:15 11/06/17 15:15 11/06/17 15:15 11/06/17 15:15 11/06/17 15:15 Intake and Output: 11/06/17 11/06/17 06:59 18:59 Intake Total 50 940 Balance 50 940 - Medications Medications: Current Medications Albuterol/Ipratropium (Duoneb 3 Mg/0.5 Mg (3 Ml) Ud) 3 ml INH RQ4 [facility] Last Admin: 11/06/17 16:31 Dose: 3 ml Enoxaparin Sodium (Lovenox) 40 mg SC DAILY [facility] Last Admin: 11/06/17 10:22 Dose: 40 mg Glipizide (Glucotrol Xl) 5 mg PO DAILY [facility] Last Admin: 11/06/17 10:21 Dose: 5 mg Guaifenesin (Mucinex La) 600 mg PO BID [facility] Last Admin: 11/06/17 17:01 Dose: 600 mg Imipenem/Cilastatin Sodium 500 (mg/ Sodium Chloride) 100 mls @ 100 mls/hr IVPB Q6H [facility] Last Admin: 11/06/17 14:16 Dose: 100 mls/hr Vancomycin/Sodium Chloride (Vancomycin 1 Gm/Ns 200 Ml) 1 gm in 200 mls @ 133.333 mls/hr IVPB Q24H [facility] Stop: 11/11/17 14:01 Last Admin: 11/06/17 15:26 Dose: 133.333 mls/hr Insulin Glargine (Lantus) 10 unit SC [facility] Last Admin: 11/05/17 21:31 Dose: 10 u Insulin Human Regular (Novolin R) 0 unit SC ACHS [facility] PRN Reason: Protocol Last Admin: 11/06/17 17:10 Dose: 4 unit Lactic Acid (Lac-Hydrin 12% Lotion (225 G)) 1 gm EXT DAILY [facility] Last Admin: 11/06/17 10:29 Dose: 1 applic Lisinopril (Zestril) 5 mg PO DAILY [facility] Pantoprazole Sodium (Protonix Ec Tab) 40 mg PO DAILY [facility] Last Admin: 11/06/17 10:22 Dose: 40 mg Prednisone (Prednisone Tab) 30 mg PO DAILY [facility] PRN Reason: Taper Stop: 11/12/17 11:59 Last Admin: 11/06/17 11:07 Dose: 35 mg Promethazine HCl/Codeine (Phenergan/Codeine Oral Syrup) 5 ml PO Q4 PRN PRN Reason: Cough Saccharomyces Boulardii (Florastor) 250 mg PO BID [facility] Last Admin: 11/06/17 17:01 Dose: 250 mg Fluticasone/Salmeterol (Advair Diskus 250/50) 1 puff INH RQ12 [facility] Last Admin: 11/06/17 09:00 Dose: Not Given Tiotropium [place] (Spiriva) 18 mcg INH RQ24 [facility] Last Admin: 11/06/17 09:00 Dose: Not Given - Labs Labs: 11/06/17 07:00 11/06/17 07:00 Attending/Attestation - Attestation I have personally seen and examined this patient.: Yes I have fully participated in the care of the patient.: Yes I have reviewed all pertinent clinical information, including history, physical exam and plan: Yes Notes (Text): Patient was seen and examined has cough On Primaxin 500mg IVPB q6h (started on 10/31/17) Gentamicin 80mg IVPB TID (started 11/01/17) Sputum positive for MRSA and Ecoli case discussed with the resident I agree with the documentation of the assessment and the plan of the resident pending repeat sputum culture continue antibiotics
[2017-11-04] MEDS: Ammonium Lactate 12% Lotion (225 g) EXT SCH (10:55)
--- NOTE | 2017-11-04 14:20 | CP.PCM.PN ---
Objective - Vital Signs/Intake and Output Vital Signs (last 24 hours): Temp Pulse Resp BP Pulse Ox 98.4 F 94 H 20 135/74 97 11/04/17 08:18 11/04/17 08:18 11/04/17 08:18 11/04/17 08:18 11/04/17 08:18 Intake and Output: 11/04/17 11/04/17 06:59 18:59 Intake Total 850 Balance 850 - Medications Medications: Current Medications Albuterol/Ipratropium (Duoneb 3 Mg/0.5 Mg (3 Ml) Ud) 3 ml INH RQ4 [facility] Last Admin: 11/04/17 11:05 Dose: 3 ml Amlodipine Besylate (Norvasc) 5 mg PO DAILY [facility] Last Admin: 11/04/17 09:24 Dose: 5 mg Enoxaparin Sodium (Lovenox) 40 mg SC DAILY [facility] Last Admin: 11/04/17 09:24 Dose: 40 mg Glipizide (Glucotrol Xl) 5 mg PO DAILY [facility] Last Admin: 11/04/17 09:24 Dose: 5 mg Guaifenesin (Mucinex La) 600 mg PO BID [facility] Last Admin: 11/04/17 09:24 Dose: 600 mg Imipenem/Cilastatin Sodium 500 (mg/ Sodium Chloride) 100 mls @ 100 mls/hr IVPB Q6H [facility] Last Admin: 11/04/17 13:37 Dose: 100 mls/hr Gentamicin Sulfate 80 mg/ (Sodium Chloride) 102 mls @ 100 mls/hr IVPB Q8H [facility] Last Admin: 11/04/17 09:31 Dose: 100 mls/hr Insulin Glargine (Lantus) 10 unit SC HS [facility] Last Admin: 11/03/17 23:04 Dose: Not Given Insulin Human Regular (Novolin R) 0 unit SC ACHS [facility] PRN Reason: Protocol Last Admin: 11/04/17 11:53 Dose: Not Given Lactic Acid (Lac-Hydrin 12% Lotion (225 G)) 1 gm EXT DAILY [facility] Last Admin: 11/04/17 10:55 Dose: 1 applic Pantoprazole Sodium (Protonix Ec Tab) 40 mg PO DAILY [facility] Last Admin: 11/04/17 09:24 Dose: 40 mg Prednisone (Prednisone Tab) 40 mg PO DAILY [facility] PRN Reason: Taper Stop: 11/12/17 11:59 Last Admin: 11/04/17 12:56 Dose: 40 mg Promethazine HCl/Codeine (Phenergan/Codeine Oral Syrup) 5 ml PO Q4 PRN PRN Reason: Cough Saccharomyces Boulardii (Florastor) 250 mg PO BID [facility] Last Admin: 11/04/17 09:24 Dose: 250 mg Fluticasone/Salmeterol (Advair Diskus 250/50) 1 puff INH RQ12 [facility] Last Admin: 11/04/17 09:51 Dose: Not Given Tiotropium [place] (Spiriva) 18 mcg INH RQ24 [facility] Last Admin: 11/04/17 09:51 Dose: Not Given - Labs Labs: 11/04/17 06:28 11/04/17 06:28 Assessment and Plan (1) Acute exacerbation of chronic obstructive pulmonary disease Status: Acute (2) S/P IVC filter Status: Acute
[2017-11-04] MEDS: (Lantus) Insulin Glargine, Recombinant SC SCH ×2 (22:00→22:05)
[2017-11-05] MEDS: Albuterol-Ipratrop 3 mg / 0.5 (3 ml) UD INH SCH ×6 (05:35→23:47)
[2017-11-05 07:14] LABS: BASO % 0.3 % (0.0-2.0); EOS # 0.1 K/uL (0.0-0.7); EOS % 1.1 % (0.0-4.0); HEMOGLOBIN 12.8 g/dL (12.0-18.0); LYMPH % 20.3 % (20.0-40.0); MEAN CELL VOLUME 84.8 fL (80.0-94.0); MEAN CORPUSCULAR HEMOGLOBIN 28.7 pg (27.0-31.0); MEAN CORPUSCULAR HGB CONC 33.8 g/dL (33.0-37.0); MEAN PLATELET VOLUME 8.6 fL (7.2-11.7); NEUT # 6.6 K/uL (1.8-7.0); NEUT % 68.3 % (50.0-75.0); NRBC % 0.1 % (0.0-2.0); RBC 4.48 Mil/uL (4.40-5.90); RED CELL DISTRIBUTION WIDTH 15.9 % (11.5-14.5); WHITE BLOOD COUNT 9.7 K/uL (4.8-10.8)
[2017-11-05 07:43] LABS: ALB/GLOB RATIO 1.2 (1.0-2.1); ALBUMIN 3.2 g/dL (3.5-5.0); ALT/SGPT 32 U/L (21-72); AST/SGOT 23 U/L (17-59); BLOOD UREA NITROGEN 32 mg/dL (9-20); CALCIUM 8.6 mg/dl (8.6-10.4); GFR AFRICAN-AMERICAN > 60; GFR NON-AFRICAN AMERICAN > 60
[2017-11-05] MEDS: (Novolin R) Insulin Human Regular 100 units/ml vial SC SCH ×3 (08:00→16:30)
[2017-11-05] MEDS: Fluticasone-Salmeterol 250-50mcg Diskus INH SCH (08:20)
[2017-11-05] MEDS: Tiotropium 18 mcg Cap For Inhalation INH SCH (08:21)
[2017-11-05] MEDS: GlipiZIDE 5 mg SR Tab PO SCH (09:32)
[2017-11-05] MEDS: Saccharomyces Boulardi 250 mg Cap PO SCH ×2 (09:32→17:44)
[2017-11-05] MEDS: Pantoprazole 40 mg EC Tab PO SCH (09:32)
[2017-11-05] MEDS: Enoxaparin 40 mg Syringe SC SCH (09:32)
[2017-11-05] MEDS: guaiFENesin 600 mg ER Tab PO SCH ×2 (09:42→17:47)
[2017-11-05] MEDS: Ammonium Lactate 12% Lotion (225 g) EXT SCH (09:43)
--- NOTE | 2017-11-05 17:09 | CP.PCM.PN ---
<Brett Gill - Last Filed: 11/05/17 17:08> Subjective - Date & Time of Evaluation Date of Evaluation: 11/05/17 Time of Evaluation: 17:08 - Subjective Subjective: PGY-[address] Baird No acute events noted overnight. Currently in the isolation/contact precaution room due to E coli ESBL and MRSA. He reports still has thick brown sputum. He denies chest pain, abdominal pain, shortness of breath, fever, chills, nausea, vomiting. Objective - Vital Signs/Intake and Output Vital Signs (last 24 hours): Temp Pulse Resp BP Pulse Ox 97.6 F 81 20 135/63 97 11/05/17 15:15 11/05/17 15:15 11/05/17 15:15 11/05/17 15:15 11/05/17 15:15 Intake and Output: 11/05/17 11/05/17 06:59 18:59 Intake Total 900 600 Balance 900 600 - Medications Medications: Current Medications Albuterol/Ipratropium (Duoneb 3 Mg/0.5 Mg (3 Ml) Ud) 3 ml INH RQ4 [facility] Last Admin: 11/05/17 16:10 Dose: 3 ml Amlodipine Besylate (Norvasc) 5 mg PO DAILY [facility] Last Admin: 11/05/17 09:32 Dose: 5 mg Enoxaparin Sodium (Lovenox) 40 mg SC DAILY [facility] Last Admin: 11/05/17 09:32 Dose: 40 mg Glipizide (Glucotrol Xl) 5 mg PO DAILY [facility] Last Admin: 11/05/17 09:32 Dose: 5 mg Guaifenesin (Mucinex La) 600 mg PO BID [facility] Last Admin: 11/05/17 09:42 Dose: 600 mg Imipenem/Cilastatin Sodium 500 (mg/ Sodium Chloride) 100 mls @ 100 mls/hr IVPB Q6H [facility] Last Admin: 11/05/17 14:20 Dose: 100 mls/hr Gentamicin Sulfate 80 mg/ (Sodium Chloride) 102 mls @ 100 mls/hr IVPB Q8H [facility] Last Admin: 11/05/17 09:44 Dose: 100 mls/hr Insulin Glargine (Lantus) 10 unit SC HS [facility] Last Admin: 11/04/17 22:05 Dose: 10 u Insulin Human Regular (Novolin R) 0 unit SC ACHS [facility] PRN Reason: Protocol Last Admin: 11/05/17 12:05 Dose: Not Given Lactic Acid (Lac-Hydrin 12% Lotion (225 G)) 1 gm EXT DAILY [facility] Last Admin: 11/05/17 09:43 Dose: 1 applic Pantoprazole Sodium (Protonix Ec Tab) 40 mg PO DAILY [facility] Last Admin: 11/05/17 09:32 Dose: 40 mg Prednisone (Prednisone Tab) 35 mg PO DAILY [facility] PRN Reason: Taper Stop: 11/12/17 11:59 Last Admin: 11/05/17 09:32 Dose: 40 mg Promethazine HCl/Codeine (Phenergan/Codeine Oral Syrup) 5 ml PO Q4 PRN PRN Reason: Cough Saccharomyces Boulardii (Florastor) 250 mg PO BID [facility] Last Admin: 11/05/17 09:32 Dose: 250 mg Fluticasone/Salmeterol (Advair Diskus 250/50) 1 puff INH RQ12 [facility] Last Admin: 11/05/17 08:20 Dose: Not Given Tiotropium [place] (Spiriva) 18 mcg INH RQ24 [facility] Last Admin: 11/05/17 08:21 Dose: Not Given - Labs Labs: 11/05/17 07:05 11/05/17 07:05 - Additional Findings Additional findings: - Constitutional Appears: Unkempt, Chronically Ill - Head Exam Head Exam: ATRAUMATIC, NORMAL INSPECTION, NORMOCEPHALIC - Eye Exam Eye Exam: EOMI, Normal appearance - ENT Exam ENT Exam: Mucous Membranes Moist - Respiratory Exam Respiratory Exam: Wheezes, NORMAL BREATHING PATTERN - Cardiovascular Exam Cardiovascular Exam: REGULAR RHYTHM - GI/Abdominal Exam GI & Abdominal Exam: Soft, Normal Bowel Sounds - Neurological Exam Neurological Exam: Alert, Awake, Oriented x3 Neuro motor strength exam: Left Upper Extremity: 5, Right Upper Extremity: 5, Left Lower Extremity: 5, Right Lower Extremity: 5 - Psychiatric Exam Psychiatric exam: Normal Affect, Normal Mood - Skin Skin Exam: Normal Color, Warm Assessment and Plan - Assessment and Plan (Free Text) Assessment: 1) COPD exacerbation Atelectasis * 30 pack year smoking hx * Pulmonary consult, Dr Hernández * Encourage incentive spirometry * Blood culture 10/28 negative up to date * Sputum culture 10/28 (+) for ESBL E.Coli and MRSA * On contact isolation * F/U Sputum culture 11/03/17 * Imaging: * CXR 10/24 - No acute findings. * Repeat CXR 10/27: Both lower lobe atelectasis. No lobar pneumonia. * Repeat CXR 10/30: Very small left pleural effusion. Otherwise unremarkable. * CT Chest (10/26/17): paraseptal emphysema in upper lobes, worse on the right and mild centrilobular emphysema in the lungs. No pneumothorax. No evidence of consolidation or pleural effusion * Meds: * Duoneb Q4 scheduled * Advair 250/50 1 puff Q12H * Solumedrol 40 mg IV Q12H -> Start 8 day prednisone taper 11/04/2017 * Tiotropium 1 INH QD * Promethazine w codeine 5ml PO Q4H PRN cough * Mucinex 600mg PO BID * IV Abx: Azithromycin 500 mg IV daily (started 10/25) and Ceftriaxone 1 gm IV daily (started 10/25) - discontinued due to sputum culture positive for ESBL E.Coli and MRSA. We gave Vanco 1g IV BID on 10/31 however we switched to Gentamycin as this has better coverage. * Started on Primaxin 500mg IVPB QID (started on 10/31/17) * Started on Gentamicin 80mg IVPB TID (started 11/01/17) * Florastor 250mg PO BID 2) Leukocytosis - improving * no bandemia * Procalcitonin 0.05 (L) * Flu NEGATIVE, Mycoplasma pneumoniae IgM NEGATIVE, Legionella NEGATIVE * Blood Culture 10/28 - negative up to date * Sputum Culture 10/28 - positive for ESBL E. Coli and MRSA * Started on Primaxin 500mg IVPB q6h (started on 10/31/17) * Started on Gentamicin 80mg IVPB TID (started 11/01/17) * Florastor 250mg PO BID * F/U Sputum culture 11/03/17 3) History of Diabetes (controlled) * Hemoglobin A1c 10/11/17 was 6.2 * Accuchecks AC and HS * Glipizde 5mg PO daily * ISS * Lantus 10 units subqHS 4) History of PE * IVC filter in place * Patient is not on any therapuetic anticoagulation secondary to history of retroperitoneal bleed * CT Chest (10/26/17): paraseptal emphysema in upper lobes, worse on the right and mild centrilobular emphysema in the lungs. No pneumothorax. No evidence of consolidation or pleural effusion. 5) History of Left Inguinal Hernia * Ultrasound evaluation confirms * Evaluated by surgery-->Will need outpatient follow up for repair 6) Tobacco Abuse * Quit 2 months ago, prior smoking since age 13, 30 pack year smoking hx * Start Nictone patch q daily 7) Hypertension * Norvasc 5mg PO QD 8) Prophylactic Measures * Protonix 40 PO daily * SCDs * Lovenox 40mg SC daily * Heart Healthy Diet with moderate consistent CHO * IVC filter * Physical therapy eval <Mansi Baird - Last Filed: 11/06/17 18:12> Objective - Vital Signs/Intake and Output Vital Signs (last 24 hours): Temp Pulse Resp BP Pulse Ox 97.6 F 81 20 135/63 97 11/05/17 15:15 11/05/17 15:15 11/05/17 15:15 11/05/17 15:15 11/05/17 15:15 Intake and Output: 11/05/17 11/05/17 06:59 18:59 Intake Total 900 600 Balance 900 600 - Medications Medications: Current Medications Albuterol/Ipratropium (Duoneb 3 Mg/0.5 Mg (3 Ml) Ud) 3 ml INH RQ4 [facility] Last Admin: 11/05/17 16:10 Dose: 3 ml Amlodipine Besylate (Norvasc) 5 mg PO DAILY [facility] Last Admin: 11/05/17 09:32 Dose: 5 mg Enoxaparin Sodium (Lovenox) 40 mg SC DAILY [facility] Last Admin: 11/05/17 09:32 Dose: 40 mg Glipizide (Glucotrol Xl) 5 mg PO DAILY [facility] Last Admin: 11/05/17 09:32 Dose: 5 mg Guaifenesin (Mucinex La) 600 mg PO BID [facility] Last Admin: 11/05/17 17:47 Dose: 600 mg Imipenem/Cilastatin Sodium 500 (mg/ Sodium Chloride) 100 mls @ 100 mls/hr IVPB Q6H [facility] Last Admin: 11/05/17 14:20 Dose: 100 mls/hr Gentamicin Sulfate 80 mg/ (Sodium Chloride) 102 mls @ 100 mls/hr IVPB Q8H [facility] Last Admin: 11/05/17 17:47 Dose: 100 mls/hr Insulin Glargine (Lantus) 10 unit SC HS [facility] Last Admin: 11/04/17 22:05 Dose: 10 u Insulin Human Regular (Novolin R) 0 unit SC ACHS [facility] PRN Reason: Protocol Last Admin: 11/05/17 16:30 Dose: 3 unit Lactic Acid (Lac-Hydrin 12% Lotion (225 G)) 1 gm EXT DAILY [facility] Last Admin: 11/05/17 09:43 Dose: 1 applic Pantoprazole Sodium (Protonix Ec Tab) 40 mg PO DAILY [facility] Last Admin: 11/05/17 09:32 Dose: 40 mg Prednisone (Prednisone Tab) 35 mg PO DAILY [facility] PRN Reason: Taper Stop: 11/12/17 11:59 Last Admin: 11/05/17 09:32 Dose: 40 mg Promethazine HCl/Codeine (Phenergan/Codeine Oral Syrup) 5 ml PO Q4 PRN PRN Reason: Cough Saccharomyces Boulardii (Florastor) 250 mg PO BID [facility] Last Admin: 11/05/17 17:44 Dose: 250 mg Fluticasone/Salmeterol (Advair Diskus 250/50) 1 puff INH RQ12 [facility] Last Admin: 11/05/17 08:20 Dose: Not Given Tiotropium [place] (Spiriva) 18 mcg INH RQ24 [facility] Last Admin: 11/05/17 08:21 Dose: Not Given - Labs Labs: 11/05/17 07:05 11/05/17 07:05 Attending/Attestation - Attestation I have personally seen and examined this patient.: Yes I have fully participated in the care of the patient.: Yes I have reviewed all pertinent clinical information, including history, physical exam and plan: Yes Notes (Text): atient was seen and examined has cough On Primaxin 500mg IVPB q6h (started on 10/31/17) Gentamicin 80mg IVPB TID (started 11/01/17) Sputum positive for MRSA and Ecoli case discussed with the resident I agree with the documentation of the assessment and the plan of the resident pending repeat sputum culture continue antibiotics
--- NOTE | 2017-11-05 17:58 | CP.PCM.PN ---
Subjective - Date & Time of Evaluation Date of Evaluation: 11/05/17 Time of Evaluation: 10:00 - Subjective Subjective: The patient reports that he had trouble sleeping last night due to his cough, chest pain 2/2 to cough, and SOB for which he required O2 around 2 AM last night for 2 hours. Today, he is not currently on nasal canula and states that he is feeling better after receiving his breathing treatments. He reports that compared to yesterday both his shortness of breath and cough have improved with decreased brown sputum production. Objective - Vital Signs/Intake and Output Vital Signs (last 24 hours): Temp Pulse Resp BP Pulse Ox 97.6 F 81 20 135/63 97 11/05/17 15:15 11/05/17 15:15 11/05/17 15:15 11/05/17 15:15 11/05/17 15:15 Intake and Output: 11/05/17 11/05/17 06:59 18:59 Intake Total 900 600 Balance 900 600 - Medications Medications: Current Medications Albuterol/Ipratropium (Duoneb 3 Mg/0.5 Mg (3 Ml) Ud) 3 ml INH RQ4 [facility] Last Admin: 11/05/17 16:10 Dose: 3 ml Amlodipine Besylate (Norvasc) 5 mg PO DAILY [facility] Last Admin: 11/05/17 09:32 Dose: 5 mg Enoxaparin Sodium (Lovenox) 40 mg SC DAILY [facility] Last Admin: 11/05/17 09:32 Dose: 40 mg Glipizide (Glucotrol Xl) 5 mg PO DAILY [facility] Last Admin: 11/05/17 09:32 Dose: 5 mg Guaifenesin (Mucinex La) 600 mg PO BID [facility] Last Admin: 11/05/17 17:47 Dose: 600 mg Imipenem/Cilastatin Sodium 500 (mg/ Sodium Chloride) 100 mls @ 100 mls/hr IVPB Q6H [facility] Last Admin: 11/05/17 14:20 Dose: 100 mls/hr Gentamicin Sulfate 80 mg/ (Sodium Chloride) 102 mls @ 100 mls/hr IVPB Q8H [facility] Last Admin: 11/05/17 17:47 Dose: 100 mls/hr Insulin Glargine (Lantus) 10 unit SC HS [facility] Last Admin: 11/04/17 22:05 Dose: 10 u Insulin Human Regular (Novolin R) 0 unit SC ACHS [facility] PRN Reason: Protocol Last Admin: 11/05/17 16:30 Dose: 3 unit Lactic Acid (Lac-Hydrin 12% Lotion (225 G)) 1 gm EXT DAILY [facility] Last Admin: 11/05/17 09:43 Dose: 1 applic Pantoprazole Sodium (Protonix Ec Tab) 40 mg PO DAILY [facility] Last Admin: 11/05/17 09:32 Dose: 40 mg Prednisone (Prednisone Tab) 35 mg PO DAILY [facility] PRN Reason: Taper Stop: 11/12/17 11:59 Last Admin: 11/05/17 09:32 Dose: 40 mg Promethazine HCl/Codeine (Phenergan/Codeine Oral Syrup) 5 ml PO Q4 PRN PRN Reason: Cough Saccharomyces Boulardii (Florastor) 250 mg PO BID [facility] Last Admin: 11/05/17 17:44 Dose: 250 mg Fluticasone/Salmeterol (Advair Diskus 250/50) 1 puff INH RQ12 [facility] Last Admin: 11/05/17 08:20 Dose: Not Given Tiotropium [place] (Spiriva) 18 mcg INH RQ24 [facility] Last Admin: 11/05/17 08:21 Dose: Not Given - Labs Labs: 11/05/17 07:05 11/05/17 07:05 - Head Exam Head Exam: ATRAUMATIC, NORMOCEPHALIC - Eye Exam Eye Exam: Normal appearance - ENT Exam ENT Exam: Mucous Membranes Moist - Respiratory Exam Respiratory Exam: Rhonchi, Wheezes - Cardiovascular Exam Cardiovascular Exam: REGULAR RHYTHM - GI/Abdominal Exam GI & Abdominal Exam: Soft, Normal Bowel Sounds Assessment and Plan (1) Acute exacerbation of chronic obstructive pulmonary disease Status: Acute (2) S/P IVC filter Status: Acute
[2017-11-05] MEDS: (Lantus) Insulin Glargine, Recombinant SC SCH (21:31)
[2017-11-06] MEDS: Albuterol-Ipratrop 3 mg / 0.5 (3 ml) UD INH SCH ×6 (03:20→23:34)
[2017-11-06 07:08] LABS: BASO # 0.1 K/uL (0.0-0.2); BASO % 0.5 % (0.0-2.0); EOS # 0.1 K/uL (0.0-0.7); HEMOGLOBIN 12.5 g/dL (12.0-18.0); LYMPH # 2.3 K/uL (1.0-4.3); LYMPH % 23.2 % (20.0-40.0); MEAN CELL VOLUME 86.3 fL (80.0-94.0); MEAN CORPUSCULAR HEMOGLOBIN 28.7 pg (27.0-31.0); MEAN CORPUSCULAR HGB CONC 33.2 g/dL (33.0-37.0); MEAN PLATELET VOLUME 8.8 fL (7.2-11.7); MONO # 1.1 K/uL (0.0-0.8); MONO % 11.4 % (0.0-10.0); NEUT # 6.3 K/uL (1.8-7.0); NEUT % 63.9 % (50.0-75.0); NRBC % 0.1 % (0.0-2.0); RBC 4.35 Mil/uL (4.40-5.90); RED CELL DISTRIBUTION WIDTH 16.3 % (11.5-14.5); WHITE BLOOD COUNT 9.9 K/uL (4.8-10.8)
[2017-11-06 07:26] LABS: ALB/GLOB RATIO 1.2 (1.0-2.1); ALBUMIN 3.2 g/dL (3.5-5.0); ALT/SGPT 37 U/L (21-72); AST/SGOT 24 U/L (17-59); BLOOD UREA NITROGEN 39 mg/dL (9-20); CALCIUM 8.3 mg/dl (8.6-10.4); GFR AFRICAN-AMERICAN > 60; GFR NON-AFRICAN AMERICAN > 60
[2017-11-06] MEDS: (Novolin R) Insulin Human Regular 100 units/ml vial SC SCH ×4 (07:40→22:29)
[2017-11-06] MEDS: Tiotropium 18 mcg Cap For Inhalation INH SCH (09:00)
[2017-11-06] MEDS: Fluticasone-Salmeterol 250-50mcg Diskus INH SCH ×2 (09:00→20:55)
[2017-11-06] MEDS: GlipiZIDE 5 mg SR Tab PO SCH (10:21)
[2017-11-06] MEDS: guaiFENesin 600 mg ER Tab PO SCH ×2 (10:22→17:01)
[2017-11-06] MEDS: Enoxaparin 40 mg Syringe SC SCH (10:22)
[2017-11-06] MEDS: Pantoprazole 40 mg EC Tab PO SCH (10:22)
[2017-11-06] MEDS: Saccharomyces Boulardi 250 mg Cap PO SCH ×2 (10:23→17:01)
[2017-11-06] MEDS: Ammonium Lactate 12% Lotion (225 g) EXT SCH (10:29)
--- NOTE | 2017-11-06 13:45 | CP.PCM.PN ---
<Brett Gill R - Last Filed: 11/06/17 13:57> Subjective - Date & Time of Evaluation Date of Evaluation: 11/06/17 Time of Evaluation: 13:36 - Subjective Subjective: PGY-[address] Baird. No acute events overnight noted. Patient was sitting comfortably in chair. He stated he's still bringing up brown sputum. Still complains of mild shortness of breath. He denies cp, abdominal pain, fever, chills, n/v/d/c. Objective - Vital Signs/Intake and Output Vital Signs (last 24 hours): Temp Pulse Resp BP Pulse Ox 98 F 76 20 97/61 L 98 11/06/17 09:22 11/06/17 09:22 11/06/17 09:22 11/06/17 09:22 11/06/17 09:22 Intake and Output: 11/06/17 11/06/17 06:59 18:59 Intake Total 50 940 Balance 50 940 - Medications Medications: Current Medications Albuterol/Ipratropium (Duoneb 3 Mg/0.5 Mg (3 Ml) Ud) 3 ml INH RQ4 [facility] Last Admin: 11/06/17 11:34 Dose: 3 ml Amlodipine Besylate (Norvasc) 5 mg PO DAILY [facility] Last Admin: 11/06/17 10:22 Dose: 5 mg Enoxaparin Sodium (Lovenox) 40 mg SC DAILY [facility] Last Admin: 11/06/17 10:22 Dose: 40 mg Glipizide (Glucotrol Xl) 5 mg PO DAILY [facility] Last Admin: 11/06/17 10:21 Dose: 5 mg Guaifenesin (Mucinex La) 600 mg PO BID [facility] Last Admin: 11/06/17 10:22 Dose: 600 mg Imipenem/Cilastatin Sodium 500 (mg/ Sodium Chloride) 100 mls @ 100 mls/hr IVPB Q6H [facility] Last Admin: 11/06/17 08:25 Dose: 100 mls/hr Gentamicin Sulfate 80 mg/ (Sodium Chloride) 102 mls @ 100 mls/hr IVPB Q8H [facility] Last Admin: 11/06/17 02:17 Dose: 100 mls/hr Insulin Glargine (Lantus) [address] [facility] Last Admin: 11/05/17 21:31 Dose: 10 u Insulin Human Regular (Novolin R) 0 unit SC ACHS [facility] PRN Reason: Protocol Last Admin: 11/06/17 12:14 Dose: Not Given Lactic Acid (Lac-Hydrin 12% Lotion (225 G)) 1 gm EXT DAILY [facility] Last Admin: 11/06/17 10:29 Dose: 1 applic Pantoprazole Sodium (Protonix Ec Tab) 40 mg PO DAILY [facility] Last Admin: 11/06/17 10:22 Dose: 40 mg Prednisone (Prednisone Tab) 30 mg PO DAILY [facility] PRN Reason: Taper Stop: 11/12/17 11:59 Last Admin: 11/06/17 11:07 Dose: 35 mg Promethazine HCl/Codeine (Phenergan/Codeine Oral Syrup) 5 ml PO Q4 PRN PRN Reason: Cough Saccharomyces Boulardii (Florastor) 250 mg PO BID [facility] Last Admin: 11/06/17 10:23 Dose: 250 mg Fluticasone/Salmeterol (Advair Diskus 250/50) 1 puff INH RQ12 [facility] Last Admin: 11/06/17 09:00 Dose: Not Given Tiotropium [place] (Spiriva) 18 mcg INH RQ24 [facility] Last Admin: 11/06/17 09:00 Dose: Not Given - Labs Labs: 11/06/17 07:00 11/06/17 07:00 - Additional Findings Additional findings: - Constitutional Appears: Unkempt, Chronically Ill - Head Exam Head Exam: ATRAUMATIC, NORMAL INSPECTION, NORMOCEPHALIC - Eye Exam Eye Exam: EOMI, Normal appearance - ENT Exam ENT Exam: Mucous Membranes Moist - Respiratory Exam Respiratory Exam: Wheezes, NORMAL BREATHING PATTERN - Cardiovascular Exam Cardiovascular Exam: REGULAR RHYTHM - GI/Abdominal Exam GI & Abdominal Exam: Soft, Normal Bowel Sounds - Neurological Exam Neurological Exam: Alert, Awake, Oriented x3 Neuro motor strength exam: Left Upper Extremity: 5, Right Upper Extremity: 5, Left Lower Extremity: 5, Right Lower Extremity: 5 - Psychiatric Exam Psychiatric exam: Normal Affect, Normal Mood - Skin Skin Exam: Normal Color, Warm Assessment and Plan - Assessment and Plan (Free Text) Assessment: 1) COPD exacerbation Atelectasis * 30 pack year smoking hx * Pulmonary consult, Dr Hernández * Encourage incentive spirometry * Blood culture 10/28 negative up to date * Sputum culture 12/26 (+) for ESBL E.Coli and MRSA * On contact isolation * F/U repeat Sputum culture 11/03/17 * Imaging: * CXR 10/24 - No acute findings. * Repeat CXR 10/27: Both lower lobe atelectasis. No lobar pneumonia. * Repeat CXR 10/30: Very small left pleural effusion. Otherwise unremarkable. * CT Chest (10/26/17): paraseptal emphysema in upper lobes, worse on the right and mild centrilobular emphysema in the lungs. No pneumothorax. No evidence of consolidation or pleural effusion * Meds: * Duoneb Q4 scheduled * Advair 250/50 1 puff Q12H * Solumedrol 40 mg IV Q12H -> Start 8 day prednisone taper 11/04/2017 * Tiotropium 1 INH QD * Promethazine w codeine 5ml PO Q4H PRN cough * Mucinex 600mg PO BID * IV Abx: Azithromycin 500 mg IV daily (started 10/25) and Ceftriaxone 1 gm IV daily (started 10/25) - discontinued due to sputum culture positive for ESBL E.Coli and MRSA. We gave Vanco 1g IV BID on 10/31 however we switched to Gentamycin as this has better coverage. * Started on Primaxin 500mg IVPB QID (started on 10/31/17) * Started on Gentamicin 80mg IVPB TID (started 11/01/17) - stopped 11/06/17 due to high genta trough * Vancomycin 1g IVP QD * Florastor 250mg PO BID 2) Leukocytosis - improving * no bandemia * Procalcitonin 0.05 (L) * Flu NEGATIVE, Mycoplasma pneumoniae IgM NEGATIVE, Legionella NEGATIVE * Blood Culture 10/28 - negative up to date * Sputum Culture 10/28 - positive for ESBL E. Coli and MRSA * Started on Primaxin 500mg IVPB q6h (started on 10/31/17) * Started on Gentamicin 80mg IVPB TID (started 11/01/17) - stopped 11/06/17 due to high genta trough * Vancomycin 1g IVP QD * Florastor 250mg PO BID * F/U repeat Sputum culture 11/03/17 3) History of Diabetes (controlled) * Hemoglobin A1c 10/11/17 was 6.2 * Accuchecks AC and HS * Glipizde 5mg PO daily * ISS * Lantus 10 units subqHS 4) History of PE * IVC filter in place * Patient is not on any therapuetic anticoagulation secondary to history of retroperitoneal bleed * CT Chest (10/26/17): paraseptal emphysema in upper lobes, worse on the right and mild centrilobular emphysema in the lungs. No pneumothorax. No evidence of consolidation or pleural effusion. 5) History of Left Inguinal Hernia * Ultrasound evaluation confirms * Evaluated by surgery-->Will need outpatient follow up for repair 6) Tobacco Abuse * Quit 2 months ago, prior smoking since age 13, 30 pack year smoking hx * Start Nictone patch q daily 7) Hypertension * Norvasc 5mg PO QD 8) Prophylactic Measures * Protonix 40 PO daily * SCDs * Lovenox 40mg SC daily * Heart Healthy Diet with moderate consistent CHO * IVC filter * Physical therapy eval <Mansi Baird - Last Filed: 11/06/17 18:23> Objective - Vital Signs/Intake and Output Vital Signs (last 24 hours): Temp Pulse Resp BP Pulse Ox 97.6 F 74 20 117/68 95 11/06/17 15:15 11/06/17 15:15 11/06/17 15:15 11/06/17 15:15 11/06/17 15:15 Intake and Output: 11/06/17 11/06/17 06:59 18:59 Intake Total 50 940 Balance 50 940 - Medications Medications: Current Medications Albuterol/Ipratropium (Duoneb 3 Mg/0.5 Mg (3 Ml) Ud) 3 ml INH RQ4 [facility] Last Admin: 11/06/17 16:31 Dose: 3 ml Enoxaparin Sodium (Lovenox) 40 mg SC DAILY [facility] Last Admin: 11/06/17 10:22 Dose: 40 mg Glipizide (Glucotrol Xl) 5 mg PO DAILY [facility] Last Admin: 11/06/17 10:21 Dose: 5 mg Guaifenesin (Mucinex La) 600 mg PO BID [facility] Last Admin: 11/06/17 17:01 Dose: 600 mg Imipenem/Cilastatin Sodium 500 (mg/ Sodium Chloride) 100 mls @ 100 mls/hr IVPB Q6H [facility] Last Admin: 11/06/17 14:16 Dose: 100 mls/hr Vancomycin/Sodium Chloride (Vancomycin 1 Gm/Ns 200 Ml) 1 gm in 200 mls @ 133.333 mls/hr IVPB Q24H [facility] Stop: 11/11/17 14:01 Last Admin: 11/06/17 15:26 Dose: 133.333 mls/hr Insulin Glargine (Lantus) 10 unit SC HS [facility] Last Admin: 11/05/17 21:31 Dose: 10 u Insulin Human Regular (Novolin R) 0 unit SC ACHS [facility] PRN Reason: Protocol Last Admin: 11/06/17 17:10 Dose: 4 unit Lactic Acid (Lac-Hydrin 12% Lotion (225 G)) 1 gm EXT DAILY [facility] Last Admin: 11/06/17 10:29 Dose: 1 applic Lisinopril (Zestril) 5 mg PO DAILY [facility] Pantoprazole Sodium (Protonix Ec Tab) 40 mg PO DAILY [facility] Last Admin: 11/06/17 10:22 Dose: 40 mg Prednisone (Prednisone Tab) 30 mg PO DAILY [facility] PRN Reason: Taper Stop: 11/12/17 11:59 Last Admin: 11/06/17 11:07 Dose: 35 mg Promethazine HCl/Codeine (Phenergan/Codeine Oral Syrup) 5 ml PO Q4 PRN PRN Reason: Cough Saccharomyces Boulardii (Florastor) 250 mg PO BID [facility] Last Admin: 11/06/17 17:01 Dose: 250 mg Fluticasone/Salmeterol (Advair Diskus 250/50) 1 puff INH RQ12 [facility] Last Admin: 11/06/17 09:00 Dose: Not Given Tiotropium [place] (Spiriva) 18 mcg INH RQ24 [facility] Last Admin: 11/06/17 09:00 Dose: Not Given - Labs Labs: 11/06/17 07:00 11/06/17 07:00 Attending/Attestation - Attestation I have personally seen and examined this patient.: Yes I have fully participated in the care of the patient.: Yes I have reviewed all pertinent clinical information, including history, physical exam and plan: Yes Notes (Text): patient was seen and examined c/o cough with madan sputum,no fever,sitting comfortable without sob 1) COPD exacerbation and sputum positive for Ecoli and MRSA Continue vacomycina and Imipenem Gentamycin d/barrett Dr Stewart's ID consult continue prednisone,spiriva,advair and duoneb repeat chest xary 2) History of Diabetes (controlled) Monitor sugar on glipizide and lantus 3) History of PE Has an IVC filter in place not on any therapuetic anticoagulation secondary to history of retroperitoneal bleed CT Chest (10/26/17): paraseptal emphysema in uppper lobes, worse on the right and mild centrilobular emphysema in the lungs. No pneumothorax. No evidence of consolidation or pleural effusion. 4) Tobacco Abuse * Quit 2 months ago, prior smoking since age 13 * Start Nictone patch q daily 5)Homeless,recurrent hospilalization due to COPD/Resp infection 6) Prophylactic Measures * Protonix 40 PO daily * SCDs * Lovenox 40mg SC daily * Heart Healthy Diet with moderate consistent CHO * IVC filter * Florastor 250mg PO BID D/W The resident I agree with the documentation of the assessment and the plan of the resident
[2017-11-06] MEDS: Vancomycin 1 gm/NS 200 ml 1 GM/200 ML BAG IVPB SCH (15:26)
[2017-11-06] MEDS: (Lantus) Insulin Glargine, Recombinant SC SCH (21:35)
[2017-11-07] MEDS: Albuterol-Ipratrop 3 mg / 0.5 (3 ml) UD INH SCH ×5 (03:34→21:44)
--- NOTE | 2017-11-07 07:09 | CP.PCM.PN ---
<Brett Gill R - Last Filed: 11/07/17 15:19> Subjective - Date & Time of Evaluation Date of Evaluation: 11/07/17 Time of Evaluation: 07:05 - Subjective Subjective: PGY-[address] Baird. No acute events overnight noted. Patient was sitting comfortably in chair. He stated he's still bringing up brown sputum. Still complains of mild shortness of breath. He denies cp, abdominal pain, fever, chills, n/v/d/c. Objective - Vital Signs/Intake and Output Vital Signs (last 24 hours): Temp Pulse Resp BP Pulse Ox 98 F 85 20 128/63 100 11/07/17 00:00 11/07/17 00:00 11/07/17 00:00 11/07/17 00:00 11/07/17 00:00 Intake and Output: 11/07/17 11/07/17 06:59 18:59 Intake Total 1000 Output Total 1700 Balance -700 - Medications Medications: Current Medications Albuterol/Ipratropium (Duoneb 3 Mg/0.5 Mg (3 Ml) Ud) 3 ml INH RQ4 [facility] Last Admin: 11/07/17 03:34 Dose: 3 ml Enoxaparin Sodium (Lovenox) 40 mg SC DAILY [facility] Last Admin: 11/06/17 10:22 Dose: 40 mg Glipizide (Glucotrol Xl) 5 mg PO DAILY [facility] Last Admin: 11/06/17 10:21 Dose: 5 mg Guaifenesin (Mucinex La) 600 mg PO BID [facility] Last Admin: 11/06/17 17:01 Dose: 600 mg Imipenem/Cilastatin Sodium 500 (mg/ Sodium Chloride) 100 mls @ 100 mls/hr IVPB Q6H [facility] Last Admin: 11/07/17 01:43 Dose: 100 mls/hr Vancomycin/Sodium Chloride (Vancomycin 1 Gm/Ns 200 Ml) 1 gm in 200 mls @ 133.333 mls/hr IVPB Q24H [facility] Stop: 11/11/17 14:01 Last Admin: 11/06/17 15:26 Dose: 133.333 mls/hr Insulin Glargine (Lantus) 10 unit SC [facility] Last Admin: 11/06/17 21:35 Dose: 10 u Insulin Human Regular (Novolin R) 0 unit SC [facility] PRN Reason: Protocol Last Admin: 11/06/17 22:29 Dose: Not Given Lactic Acid (Lac-Hydrin 12% Lotion (225 G)) 1 gm EXT DAILY [facility] Last Admin: 11/06/17 10:29 Dose: 1 applic Lisinopril (Zestril) 5 mg PO DAILY [facility] Pantoprazole Sodium (Protonix Ec Tab) 40 mg PO DAILY [facility] Last Admin: 11/06/17 10:22 Dose: 40 mg Prednisone (Prednisone Tab) 30 mg PO DAILY [facility] PRN Reason: Taper Stop: 11/12/17 11:59 Last Admin: 11/06/17 11:07 Dose: 35 mg Promethazine HCl/Codeine (Phenergan/Codeine Oral Syrup) 5 ml PO Q4 PRN PRN Reason: Cough Saccharomyces Boulardii (Florastor) 250 mg PO BID [facility] Last Admin: 11/06/17 17:01 Dose: 250 mg Fluticasone/Salmeterol (Advair Diskus 250/50) 1 puff INH RQ12 [facility] Last Admin: 11/06/17 20:55 Dose: Not Given Tiotropium [place] (Spiriva) 18 mcg INH RQ24 [facility] Last Admin: 11/06/17 09:00 Dose: Not Given - Labs Labs: 11/06/17 07:00 11/06/17 07:00 - Additional Findings Additional findings: - Constitutional Appears: Unkempt, Chronically Ill - Head Exam Head Exam: ATRAUMATIC, NORMAL INSPECTION, NORMOCEPHALIC - Eye Exam Eye Exam: EOMI, Normal appearance - ENT Exam ENT Exam: Mucous Membranes Moist - Respiratory Exam Respiratory Exam: Wheezes, NORMAL BREATHING PATTERN - Cardiovascular Exam Cardiovascular Exam: REGULAR RHYTHM - GI/Abdominal Exam GI & Abdominal Exam: Soft, Normal Bowel Sounds - Neurological Exam Neurological Exam: Alert, Awake, Oriented x3 Neuro motor strength exam: Left Upper Extremity: 5, Right Upper Extremity: 5, Left Lower Extremity: 5, Right Lower Extremity: 5 - Psychiatric Exam Psychiatric exam: Normal Affect, Normal Mood - Skin Skin Exam: Normal Color, Warm Assessment and Plan - Assessment and Plan (Free Text) Assessment: 1) COPD exacerbation Atelectasis * 30 pack year smoking hx * Pulmonary consult, Dr Hernández * Encourage incentive spirometry * Blood culture 10/28 negative up to date * Sputum culture 10/28 (+) for ESBL E.Coli and MRSA * On contact isolation * F/U repeat Sputum culture 11/03/17 * Imaging: * CXR 10/24 - No acute findings. * Repeat CXR 10/27: Both lower lobe atelectasis. No lobar pneumonia. * Repeat CXR 10/30: Very small left pleural effusion. Otherwise unremarkable. * CT Chest (10/26/17): paraseptal emphysema in upper lobes, worse on the right and mild centrilobular emphysema in the lungs. No pneumothorax. No evidence of consolidation or pleural effusion * Meds: * Duoneb Q4 scheduled * Advair 250/50 1 puff Q12H * Solumedrol 40 mg IV Q12H -> Start 8 day prednisone taper 11/04/2017 * Tiotropium 1 INH QD * Promethazine w codeine 5ml PO Q4H PRN cough * Mucinex 600mg PO BID * IV Abx: Azithromycin 500 mg IV daily (started 10/25) and Ceftriaxone 1 gm IV daily (started 10/25) - discontinued due to sputum culture positive for ESBL E.Coli and MRSA. We gave Vanco 1g IV BID on 10/31 however we switched to Gentamycin as this has better coverage. * Started on Primaxin 500mg IVPB QID (started on 10/31/17) * Started on Gentamicin 80mg IVPB TID (started 11/01/17) - stopped 11/06/17 due to high genta trough * Vancomycin 1g IVP QD * Florastor 250mg PO BID 2) Leukocytosis - improving * no bandemia * Procalcitonin 0.05 (L) * Flu NEGATIVE, Mycoplasma pneumoniae IgM NEGATIVE, Legionella NEGATIVE * Blood Culture 10/28 - negative up to date * Sputum Culture 10/28 - positive for ESBL E. Coli and MRSA * Started on Primaxin 500mg IVPB q6h (started on 10/31/17) * Started on Gentamicin 80mg IVPB TID (started 11/01/17) - stopped 11/06/17 due to high genta trough * Vancomycin 1g IVP QD * Florastor 250mg PO BID * F/U repeat Sputum culture 11/03/17 3) History of Active Tuberculosis * Per medical records, patient diagnosed with Active Tuberculosis in 2011, however further information not available. 3 consecutive AFB were negative in 2016. * F/U AFBs x3 * Place on airborne isolation until AFBs are back 4) History of Diabetes (controlled) * Hemoglobin A1c 10/11/17 was 6.2 * Accuchecks AC and HS * Glipizde 5mg PO daily * ISS * Lantus 10 units subqHS 5) History of PE * IVC filter in place * Patient is not on any therapuetic anticoagulation secondary to history of retroperitoneal bleed * CT Chest (10/26/17): paraseptal emphysema in upper lobes, worse on the right and mild centrilobular emphysema in the lungs. No pneumothorax. No evidence of consolidation or pleural effusion. 6) History of Left Inguinal Hernia * Ultrasound evaluation confirms * Evaluated by surgery-->Will need outpatient follow up for repair 7) Tobacco Abuse * Quit 2 months ago, prior smoking since age 13, 30 pack year smoking hx * Start Nictone patch q daily 8) Hypertension * Norvasc 5mg PO QD 9) Prophylactic Measures * Protonix 40 PO daily * SCDs * Lovenox 40mg SC daily * Heart Healthy Diet with moderate consistent CHO * IVC filter * Physical therapy eval <Mansi Baird - Last Filed: 11/09/17 19:43> Objective - Vital Signs/Intake and Output Vital Signs (last 24 hours): Temp Pulse Resp BP Pulse Ox 98.4 F 73 20 116/65 99 11/07/17 15:00 11/07/17 15:00 11/07/17 15:00 11/07/17 15:00 11/07/17 15:00 - Medications Medications: Current Medications Albuterol/Ipratropium (Duoneb 3 Mg/0.5 Mg (3 Ml) Ud) 3 ml INH RQ4 [facility] Last Admin: 11/07/17 16:30 Dose: 3 ml Glipizide (Glucotrol Xl) 5 mg PO DAILY [facility] Last Admin: 11/07/17 10:02 Dose: 5 mg Guaifenesin (Mucinex La) 600 mg PO BID [facility] Last Admin: 11/07/17 17:29 Dose: 600 mg Imipenem/Cilastatin Sodium 500 (mg/ Sodium Chloride) 100 mls @ 100 mls/hr IVPB Q6H [facility] Last Admin: 11/07/17 14:37 Dose: 100 mls/hr Vancomycin HCl 1 gm/ Sodium (Chloride) 250 mls @ 166.667 mls/hr IVPB Q12H [facility] Stop: 11/12/17 02:31 Insulin Glargine (Lantus) 10 unit SC HS [facility] Last Admin: 11/06/17 21:35 Dose: 10 u Insulin Human Regular (Novolin R) 0 unit SC [facility]S [facility] PRN Reason: Protocol Last Admin: 11/07/17 17:29 Dose: 4 unit Lactic Acid (Lac-Hydrin 12% Lotion (225 G)) 1 gm EXT DAILY [facility] Last Admin: 11/07/17 10:03 Dose: 1 applic Lisinopril (Zestril) 5 mg PO DAILY [facility] Last Admin: 11/07/17 10:03 Dose: 5 mg Pantoprazole Sodium (Protonix Ec Tab) 40 mg PO DAILY [facility] Last Admin: 11/07/17 09:57 Dose: 40 mg Prednisone (Prednisone Tab) 25 mg PO DAILY [facility] PRN Reason: Taper Stop: 11/12/17 11:59 Last Admin: 11/07/17 10:02 Dose: 30 mg Promethazine HCl/Codeine (Phenergan/Codeine Oral Syrup) 5 ml PO Q4 PRN PRN Reason: Cough Saccharomyces Boulardii (Florastor) 250 mg PO BID [facility] Last Admin: 11/07/17 17:29 Dose: 250 mg Fluticasone/Salmeterol (Advair Diskus 250/50) 1 puff INH RQ12 [facility] Last Admin: 11/07/17 08:14 Dose: Not Given Tiotropium [place] (Spiriva) 18 mcg INH RQ24 [facility] Last Admin: 11/07/17 08:14 Dose: Not Given - Labs Labs: 11/07/17 07:15 11/07/17 07:15 Attending/Attestation - Attestation I have personally seen and examined this patient.: Yes I have fully participated in the care of the patient.: Yes I have reviewed all pertinent clinical information, including history, physical exam and plan: Yes Notes (Text): patient was seen and examined I agree with the documentation of the assessment and the plan of the resident
[2017-11-07 07:31] LABS: BASO # 0.1 K/uL (0.0-0.2); BASO % 0.5 % (0.0-2.0); EOS # 0.2 K/uL (0.0-0.7); EOS % 1.5 % (0.0-4.0); HEMOGLOBIN 13.6 g/dL (12.0-18.0); LYMPH # 3.3 K/uL (1.0-4.3); LYMPH % 30.5 % (20.0-40.0); MEAN CELL VOLUME 85.6 fL (80.0-94.0); MEAN CORPUSCULAR HEMOGLOBIN 29.2 pg (27.0-31.0); MEAN CORPUSCULAR HGB CONC 34.1 g/dL (33.0-37.0); MEAN PLATELET VOLUME 8.7 fL (7.2-11.7); MONO # 1.8 K/uL (0.0-0.8); MONO % 16.2 % (0.0-10.0); NEUT # 5.6 K/uL (1.8-7.0); NEUT % 51.3 % (50.0-75.0); NRBC % 0.1 % (0.0-2.0); RBC 4.67 Mil/uL (4.40-5.90); RED CELL DISTRIBUTION WIDTH 16.4 % (11.5-14.5); WHITE BLOOD COUNT 10.8 K/uL (4.8-10.8)
[2017-11-07] MEDS: (Novolin R) Insulin Human Regular 100 units/ml vial SC SCH ×4 (08:02→22:05)
[2017-11-07] MEDS: Tiotropium 18 mcg Cap For Inhalation INH SCH (08:14)
[2017-11-07] MEDS: Fluticasone-Salmeterol 250-50mcg Diskus INH SCH ×2 (08:14→21:45)
[2017-11-07 08:24] LABS: ALB/GLOB RATIO 1.2 (1.0-2.1); ALBUMIN 3.6 g/dL (3.5-5.0); ALT/SGPT 32 U/L (21-72); AST/SGOT 32 U/L (17-59); BLOOD UREA NITROGEN 38 mg/dL (9-20); CALCIUM 8.6 mg/dl (8.6-10.4); GFR AFRICAN-AMERICAN > 60; GFR NON-AFRICAN AMERICAN > 60
[2017-11-07] MEDS: Pantoprazole 40 mg EC Tab PO SCH (09:57)
[2017-11-07] MEDS: guaiFENesin 600 mg ER Tab PO SCH ×2 (10:01→17:29)
[2017-11-07] MEDS: GlipiZIDE 5 mg SR Tab PO SCH (10:02)
[2017-11-07] MEDS: Enoxaparin 40 mg Syringe SC SCH (10:02)
[2017-11-07] MEDS: Saccharomyces Boulardi 250 mg Cap PO SCH ×2 (10:03→17:29)
[2017-11-07] MEDS: Ammonium Lactate 12% Lotion (225 g) EXT SCH (10:03)
--- NOTE | 2017-11-07 10:23 | CP.PCM.PN ---
Subjective - Date & Time of Evaluation Date of Evaluation: 11/07/17 Time of Evaluation: 10:00 - Subjective Subjective: Patient seen and examined at bedside. Today, he reports that he is slightly short of breath and his cough has worsened, with yellow to brown sputum. 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 Travis recommendations Blood cultures x2 negative CXR 10/24: no acute findings.~ CT chest 10/26: paraseptal emphysema in the upper lobes, worse on right and mild centrilobular emphysema in the lungs. no pneumothorax. no evidence of consolidation or pleural effusion CXR 10/27: Both lower lobe atelectasis. No lobar pneumonia.~ CXR 10/30: very small left pleural effusion. otherwise unremarkable.~ Continue Albuterol/Ipratropium 3 cc INH R Q4 hours Mucinex 600mg BID Spiriva 18mcg INH~ Prednisone 30mg PO daily Objective - Vital Signs/Intake and Output Vital Signs (last 24 hours): Temp Pulse Resp BP Pulse Ox 98 F 85 20 128/63 100 11/07/17 00:00 11/07/17 00:00 11/07/17 00:00 11/07/17 00:00 11/07/17 00:00 Intake and Output: 11/07/17 11/07/17 06:59 18:59 Intake Total 1000 Output Total 1700 Balance -700 - Medications Medications: Current Medications Albuterol/Ipratropium (Duoneb 3 Mg/0.5 Mg (3 Ml) Ud) 3 ml INH RQ4 [facility] Last Admin: 11/07/17 08:12 Dose: 3 ml Enoxaparin Sodium (Lovenox) 40 mg SC DAILY [facility] Last Admin: 11/07/17 10:02 Dose: 40 mg Glipizide (Glucotrol Xl) 5 mg PO DAILY [facility] Last Admin: 11/07/17 10:02 Dose: 5 mg Guaifenesin (Mucinex La) 600 mg PO BID [facility] Last Admin: 11/07/17 10:01 Dose: 600 mg Imipenem/Cilastatin Sodium 500 (mg/ Sodium Chloride) 100 mls @ 100 mls/hr IVPB Q6H [facility] Last Admin: 11/07/17 10:01 Dose: 100 mls/hr Vancomycin/Sodium Chloride (Vancomycin 1 Gm/Ns 200 Ml) 1 gm in 200 mls @ 133.333 mls/hr IVPB Q24H [facility] Stop: 11/11/17 14:01 Last Admin: 11/06/17 15:26 Dose: 133.333 mls/hr Insulin Glargine (Lantus) 10 unit SC HS [facility] Last Admin: 11/06/17 21:35 Dose: 10 u Insulin Human Regular (Novolin R) 0 unit SC ACHS [facility] PRN Reason: Protocol Last Admin: 11/07/17 08:02 Dose: Not Given Lactic Acid (Lac-Hydrin 12% Lotion (225 G)) 1 gm EXT DAILY [facility] Last Admin: 11/07/17 10:03 Dose: 1 applic Lisinopril (Zestril) 5 mg PO DAILY [facility] Last Admin: 11/07/17 10:03 Dose: 5 mg Pantoprazole Sodium (Protonix Ec Tab) 40 mg PO DAILY [facility] Last Admin: 11/07/17 09:57 Dose: 40 mg Prednisone (Prednisone Tab) 30 mg PO DAILY [facility] PRN Reason: Taper Stop: 11/12/17 11:59 Last Admin: 11/07/17 10:02 Dose: 30 mg Promethazine HCl/Codeine (Phenergan/Codeine Oral Syrup) 5 ml PO Q4 PRN PRN Reason: Cough Saccharomyces Boulardii (Florastor) 250 mg PO BID [facility] Last Admin: 11/07/17 10:03 Dose: 250 mg Fluticasone/Salmeterol (Advair Diskus 250/50) 1 puff INH RQ12 [facility] Last Admin: 11/07/17 08:14 Dose: Not Given Tiotropium [place] (Spiriva) 18 mcg INH RQ24 [facility] Last Admin: 11/07/17 08:14 Dose: Not Given - Labs Labs: 11/07/17 07:15 11/07/17 07:15 Assessment and Plan (1) Acute exacerbation of chronic obstructive pulmonary disease Status: Acute (2) S/P IVC filter Status: Acute
[2017-11-07] MEDS: Vancomycin 1 gm/NS 200 ml 1 GM/200 ML BAG IVPB SCH (14:39)
--- NOTE | 2017-11-07 17:46 | CP.PCM.CON ---
History of Present Illness - History of Present Illness History of Present Illness: dictated Past Patient History - Infectious Disease Hx of Infectious Diseases: None - Tetanus Immunizations Tetanus Immunization: Unknown - Past Medical History & Family History Past Medical History?: Yes - Past Social History Smoking Status: Former Smoker - CARDIAC Hx Congestive Heart Failure: Yes Hx Hypertension: Yes - PULMONARY Hx Chronic Obstructive Pulmonary Disease (COPD): Yes - NEUROLOGICAL Hx Neurological Disorder: No - HEENT Hx HEENT Problems: No - RENAL Hx Chronic Kidney Disease: No - ENDOCRINE/METABOLIC Hx Diabetes Mellitus Type 2: Yes - HEMATOLOGICAL/ONCOLOGICAL Hx Human Immunodeficiency Virus (HIV): No - INTEGUMENTARY Hx Dermatological Problems: Yes (GENERALIZED SKIN PSORIASIS) Hx Psoriasis: Yes - MUSCULOSKELETAL/RHEUMATOLOGICAL Hx Musculoskeletal Disorders: No Hx Falls: No - GASTROINTESTINAL Hx Gastrointestinal Disorders: Yes Other/Comment: GI bleeding - GENITOURINARY/GYNECOLOGICAL Hx Genitourinary Disorders: No - PSYCHIATRIC Hx Substance Use: No - SURGICAL HISTORY Other/Comment: IVC Filter - ANESTHESIA Hx Anesthesia: Yes Hx Anesthesia Reactions: No Hx Malignant Hyperthermia: No Has any member of the family had a problem w/ anesthesia?: No Meds Allergies/Adverse Reactions: Allergies Allergy/AdvReac Type Severity Reaction Status Date / Time No Known Allergies Allergy Verified 10/24/17 21:54 - Medications Medications: Current Medications Albuterol/Ipratropium (Duoneb 3 Mg/0.5 Mg (3 Ml) Ud) 3 ml INH RQ4 [facility] Last Admin: 11/07/17 16:30 Dose: 3 ml Glipizide (Glucotrol Xl) 5 mg PO DAILY [facility] Last Admin: 11/07/17 10:02 Dose: 5 mg Guaifenesin (Mucinex La) 600 mg PO BID [facility] Last Admin: 11/07/17 17:29 Dose: 600 mg Imipenem/Cilastatin Sodium 500 (mg/ Sodium Chloride) 100 mls @ 100 mls/hr IVPB Q6H [facility] Last Admin: 11/07/17 14:37 Dose: 100 mls/hr Vancomycin/Sodium Chloride (Vancomycin 1 Gm/Ns 200 Ml) 1 gm in 200 mls @ 133.333 mls/hr IVPB Q24H [facility] Stop: 11/11/17 14:01 Last Admin: 11/07/17 14:39 Dose: 133.333 mls/hr Insulin Glargine (Lantus) 10 unit SC [facility] Last Admin: 11/06/17 21:35 Dose: 10 u Insulin Human Regular (Novolin R) 0 unit SC ACHS [facility] PRN Reason: Protocol Last Admin: 11/07/17 17:29 Dose: 4 unit Lactic Acid (Lac-Hydrin 12% Lotion (225 G)) 1 gm EXT DAILY [facility] Last Admin: 11/07/17 10:03 Dose: 1 applic Lisinopril (Zestril) 5 mg PO DAILY [facility] Last Admin: 11/07/17 10:03 Dose: 5 mg Pantoprazole Sodium (Protonix Ec Tab) 40 mg PO DAILY [facility] Last Admin: 11/07/17 09:57 Dose: 40 mg Prednisone (Prednisone Tab) 25 mg PO DAILY [facility] PRN Reason: Taper Stop: 11/12/17 11:59 Last Admin: 11/07/17 10:02 Dose: 30 mg Promethazine HCl/Codeine (Phenergan/Codeine Oral Syrup) 5 ml PO Q4 PRN PRN Reason: Cough Saccharomyces Boulardii (Florastor) 250 mg PO BID [facility] Last Admin: 11/07/17 17:29 Dose: 250 mg Fluticasone/Salmeterol (Advair Diskus 250/50) 1 puff INH RQ12 [facility] Last Admin: 11/07/17 08:14 Dose: Not Given Tiotropium [place] (Spiriva) 18 mcg INH RQ24 [facility] Last Admin: 11/07/17 08:14 Dose: Not Given Results - Vital Signs Recent Vital Signs: Last Vital Signs Temp 98.4 F 11/07/17 15:00 Pulse 73 11/07/17 15:00 Resp 20 11/07/17 15:00 BP 116/65 11/07/17 15:00 Pulse Ox 99 11/07/17 15:00 - Labs Result Diagrams: 11/07/17 07:15 11/07/17 07:15 Labs: Laboratory Results - last 24 hr 11/06/17 11/07/17 11/07/17 22:00 02:15 07:15 WBC 10.8 RBC 4.67 Hgb 13.6 Hct 40.0 MCV 85.6 MCH 29.2 MCHC 34.1 RDW 16.4 H Plt Count 200 MPV 8.7 Neut % (Auto) 51.3 Lymph % (Auto) 30.5 [place] % (Auto) 16.2 H Eos % (Auto) 1.5 Baso % (Auto) 0.5 Neut # 5.6 Lymph # 3.3 [place] # 1.8 H Eos # 0.2 Baso # 0.1 Sodium Potassium Chloride Carbon Dioxide Anion Gap BUN Creatinine Est GFR ( Amer) Est GFR (Non-Af Amer) POC Glucose (mg/dL) 144 H 162 H Random Glucose Calcium Total Bilirubin AST ALT Alkaline Phosphatase Total Protein Albumin Globulin Albumin/Globulin Ratio 11/07/17 11/07/17 11/07/17 07:15 07:38 11:51 WBC RBC Hgb Hct MCV MCH MCHC RDW Plt Count MPV Neut % (Auto) Lymph % (Auto) [place] % (Auto) Eos % (Auto) Baso % (Auto) Neut # Lymph # [place] # Eos # Baso # Sodium 133 Potassium 4.0 Chloride 99 Carbon Dioxide 28 Anion Gap 10 BUN 38 H Creatinine 1.0 Est GFR ( Amer) > 60 Est GFR (Non-Af Amer) > 60 POC Glucose (mg/dL) 87 180 H Random Glucose 70 L Calcium 8.6 Total Bilirubin 0.4 AST 32 ALT 32 Alkaline Phosphatase 48 Total Protein 6.7 Albumin 3.6 Globulin 3.1 Albumin/Globulin Ratio 1.2 11/07/17 16:22 WBC RBC Hgb Hct MCV MCH MCHC RDW Plt Count MPV Neut % (Auto) Lymph % (Auto) [place] % (Auto) Eos % (Auto) Baso % (Auto) Neut # Lymph # [place] # Eos # Baso # Sodium Potassium Chloride Carbon Dioxide Anion Gap BUN Creatinine Est GFR ( Amer) Est GFR (Non-Af Amer) POC Glucose (mg/dL) 277 H Random Glucose Calcium Total Bilirubin AST ALT Alkaline Phosphatase Total Protein Albumin Globulin Albumin/Globulin Ratio
[2017-11-07] MEDS: (Lantus) Insulin Glargine, Recombinant SC SCH (22:30)
[2017-11-08] MEDS: Albuterol-Ipratrop 3 mg / 0.5 (3 ml) UD INH SCH ×6 (00:39→19:11)
--- NOTE | 2017-11-08 03:24 | CON ---
DATE: HISTORY OF PRESENT ILLNESS: This patient is a 67-year-old male. He has history of COPD, asthma, pulmonary embolism 2 years ago, history of IVC filter, has retroperitoneal hematoma 2 years ago because of the blood thinners, now comes in with chest pain and shortness of breath. I have known from before. One time his TB test came out positive and we are looking for it. Today, when I came to see him, I looked back and he has had M. avium at that time instead of the actual TB, but last night I was not sure about it. So, we put him in isolation room and we have ordered more sputum for AFB and if they are KEL again, he may need active treatment for KEL. He lives with his friend during week days and goes to a homeless [facility] on the weekends and he is on albuterol. MEDICATIONS: He is on albuterol, Glucotrol, Mucinex. He was on imipenem and gentamicin. His gentamicin trough was high, so I had to discontinue it and we added vancomycin as his sputum also showed MRSA. He seems to be doing slightly better. He was not using oxygen when I saw him, but he was wearing his bilateral compressive devices while he was sitting. He seems to be feeling little better and he is on Novolin R coverage as he is diabetic, Lac-Hydrin, Zestril, Protonix. He is also on prednisone. He is getting 25 mg daily and he is on promethazine, codeine, as he has come with chest pain secondary to coughing. So, at this time he is on the medications. He was just seen by Dr. Stout also. His medications, I want to make sure that it is vancomycin and Primaxin 500 q.6 hours and he is on vancomycin 1 g daily. He is only 67 years old and he denies any other complaints. He is feeling little better. He denies any leg edema at this time. He is homeless otherwise and he comes from the [facility]. PHYSICAL EXAMINATION VITAL SIGNS: T-max is 98.4, pulse 73, blood pressure 116/65, respirations 20. HEENT: Head is atraumatic, normocephalic. Pupils are reacting to light. NECK: Supple. LUNGS: Occasional wheeze, otherwise clear. Decreased breath sounds bilaterally. HEART: S1 and S2 is regular. ABDOMEN: Soft, nontender. No guarding. No rigidity present. EXTREMITIES: No edema, clubbing, or cyanosis at this time. He has Venodyne boots on. LABORATORY DATA: White count is 10.8, hemoglobin 13.6, hematocrit 40, platelet count is 200. Sodium is 133, potassium 4, chlorides are 99, CO2 is 28, BUN 38, creatinine is 1. So at this time, I think I will increase his vancomycin to 1 g q.12 as well as continue the Primaxin. He did have E. coli and MRSA and we are checking the sputum for AFB and if they will show and I want to clear now that the last time he was here it was KEL when I saw him in the April admission of 2016. So, we will follow and order sputum for AFB again. Jaylen Stewart MD T: 11/07/2017 21:08:57
--- NOTE | 2017-11-08 08:39 | CP.PCM.PN ---
<Wallace Schaffer H - Last Filed: 11/08/17 17:31> Subjective - Date & Time of Evaluation Date of Evaluation: 11/08/17 Time of Evaluation: 09:15 - Subjective Subjective: Dr. Baird note: Patient is seen and examined in room. He says he is has been having a productive cough with brown and somtimes green sputum but currently denies fever or chills. Objective - Vital Signs/Intake and Output Vital Signs (last 24 hours): Temp Pulse Resp BP Pulse Ox 97.5 F L 75 20 121/62 100 11/08/17 00:00 11/08/17 00:00 11/08/17 00:00 11/08/17 00:00 11/08/17 00:00 Intake and Output: 11/08/17 11/08/17 06:59 18:59 Intake Total 580 880 Balance 580 880 - Medications Medications: Current Medications Albuterol/Ipratropium (Duoneb 3 Mg/0.5 Mg (3 Ml) Ud) 3 ml INH RQ4 [facility] Last Admin: 11/08/17 08:01 Dose: 3 ml Glipizide (Glucotrol Xl) 5 mg PO DAILY [facility] Last Admin: 11/07/17 10:02 Dose: 5 mg Guaifenesin (Mucinex La) 600 mg PO BID [facility] Last Admin: 11/07/17 17:29 Dose: 600 mg Imipenem/Cilastatin Sodium 500 (mg/ Sodium Chloride) 100 mls @ 100 mls/hr IVPB Q6H [facility] Last Admin: 11/08/17 02:28 Dose: 100 mls/hr Vancomycin HCl 1 gm/ Sodium (Chloride) 250 mls @ 166.667 mls/hr IVPB Q12H [facility] Stop: 11/12/17 02:31 Last Admin: 11/08/17 02:50 Dose: 166.667 mls/hr Insulin Glargine (Lantus) 10 unit SC HS [facility] Last Admin: 11/07/17 22:30 Dose: 10 u Insulin Human Regular (Novolin R) 0 unit SC ACHS [facility] PRN Reason: Protocol Last Admin: 11/07/17 22:05 Dose: Not Given Lactic Acid (Lac-Hydrin 12% Lotion (225 G)) 1 gm EXT DAILY [facility] Last Admin: 11/07/17 10:03 Dose: 1 applic Lisinopril (Zestril) 5 mg PO DAILY [facility] Last Admin: 11/07/17 10:03 Dose: 5 mg Pantoprazole Sodium (Protonix Ec Tab) 40 mg PO DAILY [facility] Last Admin: 11/07/17 09:57 Dose: 40 mg Prednisone (Prednisone Tab) 25 mg PO DAILY [facility] PRN Reason: Taper Stop: 11/12/17 11:59 Last Admin: 11/07/17 10:02 Dose: 30 mg Promethazine HCl/Codeine (Phenergan/Codeine Oral Syrup) 5 ml PO Q4 PRN PRN Reason: Cough Saccharomyces Boulardii (Florastor) 250 mg PO BID [facility] Last Admin: 11/07/17 17:29 Dose: 250 mg Fluticasone/Salmeterol (Advair Diskus 250/50) 1 puff INH RQ12 [facility] Last Admin: 11/07/17 21:45 Dose: 1 puff Tiotropium [place] (Spiriva) 18 mcg INH RQ24 [facility] Last Admin: 11/07/17 08:14 Dose: Not Given - Labs Labs: 11/07/17 07:15 11/07/17 07:15 - Constitutional Appears: Non-toxic, No Acute Distress - Eye Exam Eye Exam: Normal appearance. absent: Scleral icterus - Respiratory Exam Respiratory Exam: Decreased Breath Sounds, Rhonchi, Wheezes. absent: Clear to Ausculation Bilateral, Rales - Cardiovascular Exam Cardiovascular Exam: REGULAR RHYTHM, RRR, +S1, +S2. absent: Gallop, Rubs - GI/Abdominal Exam GI & Abdominal Exam: Soft, Normal Bowel Sounds. absent: Tenderness - Extremities Exam Extremities Exam: Normal Inspection. absent: Pedal Edema - Back Exam Back Exam: NORMAL INSPECTION - Psychiatric Exam Psychiatric exam: Normal Affect, Normal Mood - Skin Skin Exam: Normal Color. absent: Pallor Assessment and Plan - Assessment and Plan (Free Text) Assessment: 1) COPD exacerbation Atelectasis 11/08: Patient is still wheezing with some crackles, continue with duonex, Solumedrol, Sprivia, cough medication. continue isolation, will need to get AFB culture to rule out TB. continue with IV Pimaxin started in 10/31 (day 8). * 30 pack year smoking hx * Pulmonary consult, Dr Hernández * Encourage incentive spirometry * Blood culture 10/28 negative up to date * Sputum culture 10/28 (+) for ESBL E.Coli and MRSA * On contact isolation * F/U repeat Sputum culture 11/03/17 * Imaging: * CXR 10/24 - No acute findings. * Repeat CXR 10/27: Both lower lobe atelectasis. No lobar pneumonia. * Repeat CXR 10/30: Very small left pleural effusion. Otherwise unremarkable. * CT Chest (10/26/17): paraseptal emphysema in upper lobes, worse on the right and mild centrilobular emphysema in the lungs. No pneumothorax. No evidence of consolidation or pleural effusion * Meds: * Duoneb Q4 scheduled * Advair 250/50 1 puff Q12H * Solumedrol 40 mg IV Q12H -> Start 8 day prednisone taper 11/04/2017 * Tiotropium 1 INH QD * Promethazine w codeine 5ml PO Q4H PRN cough * Mucinex 600mg PO BID * IV Abx: Azithromycin 500 mg IV daily (started 10/25) and Ceftriaxone 1 gm IV daily (started 10/25) - discontinued due to sputum culture positive for ESBL E.Coli and MRSA. We gave Vanco 1g IV BID on 10/31 however we switched to Gentamycin as this has better coverage. * Started on Primaxin 500mg IVPB QID (started on 10/31/17) * Started on Gentamicin 80mg IVPB TID (started 11/01/17) - stopped 11/06/17 due to high genta trough * Vancomycin 1g IVP QD * Florastor 250mg PO BID 2) Leukocytosis -resolved * 11/08: resolved, continue IV Pimaxin. * no bandemia * Procalcitonin 0.05 (L) * Flu NEGATIVE, Mycoplasma pneumoniae IgM NEGATIVE, Legionella NEGATIVE * Blood Culture 10/28 - negative up to date * Sputum Culture 10/28 - positive for ESBL E. Coli and MRSA * Started on Primaxin 500mg IVPB q6h (started on 10/31/17) * Started on Gentamicin 80mg IVPB TID (started 11/01/17) - stopped 11/06/17 due to high genta trough * Vancomycin 1g IVP QD * Florastor 250mg PO BID * F/U repeat Sputum culture 11/03/17 3) History of Active Tuberculosis * 11/08: AFB x3, 2 have been recieved the 3rd is pending collection. First sputum collected is negative. * Per medical records, patient diagnosed with Active Tuberculosis in 2011, however further information not available. 3 consecutive AFB were negative in 2016. * F/U AFBs x3 * Place on airborne isolation until AFBs are back 4) History of Diabetes (controlled) * Hemoglobin A1c 10/11/17 was 6.2 * Accuchecks AC and HS * Glipizde 5mg PO daily * ISS * Lantus 10 units subqHS 5) History of PE * IVC filter in place * Patient is not on any therapuetic anticoagulation secondary to history of retroperitoneal bleed * CT Chest (10/26/17): paraseptal emphysema in upper lobes, worse on the right and mild centrilobular emphysema in the lungs. No pneumothorax. No evidence of consolidation or pleural effusion. 6) History of Left Inguinal Hernia * Ultrasound evaluation confirms * Evaluated by surgery-->Will need outpatient follow up for repair 7) Tobacco Abuse * Quit 2 months ago, prior smoking since age 13, 30 pack year smoking hx * Start Nictone patch q daily 8) Hypertension * Norvasc 5mg PO QD 9) Prophylactic Measures * Protonix 40 PO daily * SCDs * Lovenox 40mg SC daily * Heart Healthy Diet with moderate consistent CHO * IVC filter * Physical therapy eval <Mansi Baird - Last Filed: 11/09/17 19:44> Objective - Vital Signs/Intake and Output Vital Signs (last 24 hours): Temp Pulse Resp BP Pulse Ox 98.1 F 81 20 123/64 98 11/09/17 15:20 11/09/17 15:20 11/09/17 15:20 11/09/17 15:20 11/09/17 15:20 - Medications Medications: Current Medications Albuterol/Ipratropium (Duoneb 3 Mg/0.5 Mg (3 Ml) Ud) 3 ml INH RQ4 [facility] Glipizide (Glucotrol Xl) 5 mg PO DAILY [facility] Last Admin: 11/09/17 09:57 Dose: 5 mg Guaifenesin (Mucinex La) 600 mg PO BID [facility] Last Admin: 11/09/17 17:29 Dose: 600 mg Imipenem/Cilastatin Sodium 500 (mg/ Sodium Chloride) 100 mls @ 100 mls/hr IVPB Q6H [facility] Last Admin: 11/09/17 19:35 Dose: 100 mls/hr Vancomycin HCl 1 gm/ Sodium (Chloride) 250 mls @ 166.667 mls/hr IVPB Q12H [facility] Stop: 11/12/17 02:31 Last Admin: 11/09/17 15:57 Dose: 166.667 mls/hr Insulin Glargine (Lantus) 10 unit SC HS [facility] Last Admin: 11/08/17 22:27 Dose: 10 u Insulin Human Regular (Novolin R) 0 unit SC ACHS [facility] PRN Reason: Protocol Last Admin: 11/09/17 17:33 Dose: 3 unit Lactic Acid (Lac-Hydrin 12% Lotion (225 G)) 1 gm EXT DAILY [facility] Last Admin: 11/09/17 09:57 Dose: 1 applic Lisinopril (Zestril) 5 mg PO DAILY [facility] Last Admin: 11/09/17 09:58 Dose: 5 mg Prednisone (Prednisone Tab) 15 mg PO DAILY [facility] PRN Reason: Taper Stop: 11/12/17 11:59 Last Admin: 11/09/17 09:59 Dose: 20 mg Promethazine HCl/Codeine (Phenergan/Codeine Oral Syrup) 5 ml PO Q4 PRN PRN Reason: Cough Saccharomyces Boulardii (Florastor) 250 mg PO BID [facility] Last Admin: 11/09/17 17:29 Dose: 250 mg Fluticasone/Salmeterol (Advair Diskus 250/50) 1 puff INH RQ12 [facility] Last Admin: 11/09/17 19:31 Dose: 1 puff Tiotropium [place] (Spiriva) 18 mcg INH RQ24 [facility] Last Admin: 11/08/17 15:39 Dose: Not Given - Labs Labs: 11/09/17 09:12 11/09/17 09:12 Attending/Attestation - Attestation I have personally seen and examined this patient.: Yes I have fully participated in the care of the patient.: Yes I have reviewed all pertinent clinical information, including history, physical exam and plan: Yes Notes (Text): patient was seen and examined I agree with the documentation of the assessment and the plan of the resident
[2017-11-08 08:48] LABS: BASO % 0.3 % (0.0-2.0); EOS # 0.2 K/uL (0.0-0.7); EOS % 1.8 % (0.0-4.0); LYMPH # 2.6 K/uL (1.0-4.3); LYMPH % 24.5 % (20.0-40.0); MEAN CELL VOLUME 85.4 fL (80.0-94.0); MEAN CORPUSCULAR HEMOGLOBIN 29.2 pg (27.0-31.0); MEAN CORPUSCULAR HGB CONC 34.2 g/dL (33.0-37.0); MEAN PLATELET VOLUME 8.8 fL (7.2-11.7); MONO # 1.8 K/uL (0.0-0.8); MONO % 17.2 % (0.0-10.0); NEUT # 5.9 K/uL (1.8-7.0); NEUT % 56.2 % (50.0-75.0); NRBC % 0.1 % (0.0-2.0); RBC 4.1 Mil/uL (4.40-5.90); RED CELL DISTRIBUTION WIDTH 16.1 % (11.5-14.5); WHITE BLOOD COUNT 10.5 K/uL (4.8-10.8)
[2017-11-08] MEDS: (Novolin R) Insulin Human Regular 100 units/ml vial SC SCH ×4 (09:05→22:23)
[2017-11-08 09:23] LABS: ALB/GLOB RATIO 1.1 (1.0-2.1); ALT/SGPT 28 U/L (21-72); AST/SGOT 18 U/L (17-59); BLOOD UREA NITROGEN 33 mg/dL (9-20); CALCIUM 7.9 mg/dl (8.6-10.4); GFR AFRICAN-AMERICAN > 60; GFR NON-AFRICAN AMERICAN > 60
[2017-11-08] MEDS: GlipiZIDE 5 mg SR Tab PO SCH (09:31)
[2017-11-08] MEDS: Pantoprazole 40 mg EC Tab PO SCH (09:32)
[2017-11-08] MEDS: Saccharomyces Boulardi 250 mg Cap PO SCH ×2 (09:41→17:30)
[2017-11-08] MEDS: Fluticasone-Salmeterol 250-50mcg Diskus INH SCH ×2 (11:14→19:11)
[2017-11-08] MEDS: guaiFENesin 600 mg ER Tab PO SCH ×2 (12:03→19:00)
[2017-11-08] MEDS: Ammonium Lactate 12% Lotion (225 g) EXT SCH (12:03)
[2017-11-08] MEDS: Tiotropium 18 mcg Cap For Inhalation INH SCH (15:39)
[2017-11-08] MEDS: (Lantus) Insulin Glargine, Recombinant SC SCH (22:27)
[2017-11-09] MEDS: Albuterol-Ipratrop 3 mg / 0.5 (3 ml) UD INH SCH ×6 (00:27→22:41)
--- NOTE | 2017-11-09 07:17 | CP.PCM.PN ---
<Alisha Price - Last Filed: 11/09/17 07:30> Subjective - Date & Time of Evaluation Date of Evaluation: 11/09/17 Time of Evaluation: 07:15 - Subjective Subjective: Medicine Progress Note: Hospitalist Service Patient seen and examined at bedside. Per nursing, no acute events overnight. Patient is doing well, offers no complaints at this time. Still coughing with brown sputum. Denies fevers, chills, nausea/vomiting, cp, palpitations, sob, abdominal pain, urinary symptoms, changes in bowel habits. Objective - Vital Signs/Intake and Output Vital Signs (last 24 hours): Temp Pulse Resp BP Pulse Ox 97.6 F 73 20 139/74 98 11/09/17 00:00 11/09/17 00:00 11/09/17 00:00 11/09/17 00:00 11/09/17 00:00 Intake and Output: 11/09/17 11/09/17 06:59 18:59 Intake Total 480 Balance 480 - Medications Medications: Current Medications Albuterol/Ipratropium (Duoneb 3 Mg/0.5 Mg (3 Ml) Ud) 3 ml INH RQ4 [facility] Last Admin: 11/09/17 04:17 Dose: Not Given Glipizide (Glucotrol Xl) 5 mg PO DAILY [facility] Last Admin: 11/08/17 09:31 Dose: 5 mg Guaifenesin (Mucinex La) 600 mg PO BID [facility] Last Admin: 11/08/17 19:00 Dose: 600 mg Imipenem/Cilastatin Sodium 500 (mg/ Sodium Chloride) 100 mls @ 100 mls/hr IVPB Q6H [facility] Last Admin: 11/09/17 01:46 Dose: 100 mls/hr Vancomycin HCl 1 gm/ Sodium (Chloride) 250 mls @ 166.667 mls/hr IVPB Q12H [facility] Stop: 11/12/17 02:31 Last Admin: 11/09/17 01:45 Dose: 166.667 mls/hr Insulin Glargine (Lantus) 10 unit SC HS [facility] Last Admin: 11/08/17 22:27 Dose: 10 u Insulin Human Regular (Novolin R) 0 unit SC ACHS [facility] PRN Reason: Protocol Last Admin: 11/08/17 22:23 Dose: Not Given Lactic Acid (Lac-Hydrin 12% Lotion (225 G)) 1 gm EXT DAILY [facility] Last Admin: 11/08/17 12:03 Dose: 1 applic Lisinopril (Zestril) 5 mg PO DAILY [facility] Last Admin: 11/08/17 09:31 Dose: 5 mg Pantoprazole Sodium (Protonix Ec Tab) 40 mg PO DAILY [facility] Last Admin: 11/08/17 09:32 Dose: 40 mg Prednisone (Prednisone Tab) 20 mg PO DAILY [facility] PRN Reason: Taper Stop: 11/12/17 11:59 Last Admin: 11/08/17 09:31 Dose: 25 mg Promethazine HCl/Codeine (Phenergan/Codeine Oral Syrup) 5 ml PO Q4 PRN PRN Reason: Cough Saccharomyces Boulardii (Florastor) 250 mg PO BID [facility] Last Admin: 11/08/17 17:30 Dose: 250 mg Fluticasone/Salmeterol (Advair Diskus 250/50) 1 puff INH RQ12 [facility] Last Admin: 11/08/17 19:11 Dose: Not Given Tiotropium [place] (Spiriva) 18 mcg INH RQ24 [facility] Last Admin: 11/08/17 15:39 Dose: Not Given - Labs Labs: 11/08/17 08:38 11/08/17 08:38 - Additional Findings Additional findings: - Constitutional Appears: Non-toxic, No Acute Distress - Eye Exam Eye Exam: Normal appearance. absent: Scleral icterus - Respiratory Exam Respiratory Exam: Decreased Breath Sounds, Rhonchi, Wheezes. absent: Clear to Ausculation Bilateral, Rales - Cardiovascular Exam Cardiovascular Exam: REGULAR RHYTHM, RRR, +S1, +S2. absent: Gallop, Rubs - GI/Abdominal Exam GI & Abdominal Exam: Soft, Normal Bowel Sounds. absent: Tenderness - Extremities Exam Extremities Exam: Normal Inspection. absent: Pedal Edema - Back Exam Back Exam: NORMAL INSPECTION - Psychiatric Exam Psychiatric exam: Normal Affect, Normal Mood - Skin Skin Exam: Normal Color. absent: Pallor Assessment and Plan - Assessment and Plan (Free Text) Assessment: 1) COPD exacerbation Atelectasis 11/08: Patient is still wheezing with some crackles, continue with duonex, Solumedrol, Sprivia, cough medication. continue isolation, will need to get AFB culture to rule out TB. continue with IV Pimaxin started in 10/31 (day 8). * 30 pack year smoking hx * Pulmonary consult, Dr Hernández * Encourage incentive spirometry * Blood culture 10/28 negative up to date * Sputum culture 10/28 (+) for ESBL E.Coli and MRSA * On contact isolation * F/U repeat Sputum culture 11/03/17 * Imaging: * CXR 10/24 - No acute findings. * Repeat CXR 10/27: Both lower lobe atelectasis. No lobar pneumonia. * Repeat CXR 10/30: Very small left pleural effusion. Otherwise unremarkable. * CT Chest (10/26/17): paraseptal emphysema in upper lobes, worse on the right and mild centrilobular emphysema in the lungs. No pneumothorax. No evidence of consolidation or pleural effusion * Meds: * Duoneb Q4 scheduled * Advair 250/50 1 puff Q12H * Solumedrol 40 mg IV Q12H -> Start 8 day prednisone taper 11/04/2017 * Tiotropium 1 INH QD * Promethazine w codeine 5ml PO Q4H PRN cough * Mucinex 600mg PO BID * IV Abx: Azithromycin 500 mg IV daily (started 10/25) and Ceftriaxone 1 gm IV daily (started 10/25) - discontinued due to sputum culture positive for ESBL E.Coli and MRSA. We gave Vanco 1g IV BID on 10/31 however we switched to Gentamycin as this has better coverage. * Started on Primaxin 500mg IVPB QID (started on 10/31/17) * Started on Gentamicin 80mg IVPB TID (started 11/01/17) - stopped 11/06/17 due to high genta trough * Vancomycin 1g IVP QD * Florastor 250mg PO BID 2) Leukocytosis -resolved * 11/08: resolved, continue IV Pimaxin. * no bandemia * Procalcitonin 0.05 (L) * Flu NEGATIVE, Mycoplasma pneumoniae IgM NEGATIVE, Legionella NEGATIVE * Blood Culture 10/28 - negative up to date * Sputum Culture 10/28 - positive for ESBL E. Coli and MRSA * Started on Primaxin 500mg IVPB q6h (started on 10/31/17) * Started on Gentamicin 80mg IVPB TID (started 11/01/17) - stopped 11/06/17 due to high genta trough * Vancomycin 1g IVP QD * Florastor 250mg PO BID * F/U repeat Sputum culture 11/03/17 3) History of Active Tuberculosis * 11/08: AFB x3, 2 have been recieved the 3rd is pending collection. First sputum collected is negative. * Per medical records, patient diagnosed with Active Tuberculosis in 2011, however further information not available. 3 consecutive AFB were negative in 2016. 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 No pneumothorax. No evidence of consolidation or pleural effusion. 6) History of Left Inguinal Hernia * Ultrasound evaluation confirms * Evaluated by surgery-->Will need outpatient follow up for repair 7) Tobacco Abuse * Quit 2 months ago, prior smoking since age 13, 30 pack year smoking hx * Nictone patch q daily 8) Hypertension * Norvasc 5mg PO QD 9) Prophylactic Measures * Protonix 40 PO daily * SCDs * Lovenox 40mg SC daily * Heart Healthy Diet with moderate consistent CHO * IVC filter * Physical therapy eval <Mansi Baird - Last Filed: 11/09/17 19:45> Objective - Vital Signs/Intake and Output Vital Signs (last 24 hours): Temp Pulse Resp BP Pulse Ox 98.1 F 81 20 123/64 98 11/09/17 15:20 11/09/17 15:20 11/09/17 15:20 11/09/17 15:20 11/09/17 15:20 - Medications Medications: Current Medications Albuterol/Ipratropium (Duoneb 3 Mg/0.5 Mg (3 Ml) Ud) 3 ml INH RQ4 [facility] Glipizide (Glucotrol Xl) 5 mg PO DAILY [facility] Last Admin: 11/09/17 09:57 Dose: 5 mg Guaifenesin (Mucinex La) 600 mg PO BID [facility] Last Admin: 11/09/17 17:29 Dose: 600 mg Imipenem/Cilastatin Sodium 500 (mg/ Sodium Chloride) 100 mls @ 100 mls/hr IVPB Q6H [facility] Last Admin: 11/09/17 19:35 Dose: 100 mls/hr Vancomycin HCl 1 gm/ Sodium (Chloride) 250 mls @ 166.667 mls/hr IVPB Q12H [facility] Stop: 11/12/17 02:31 Last Admin: 11/09/17 15:57 Dose: 166.667 mls/hr Insulin Glargine (Lantus) 10 unit SC HS [facility] Last Admin: 11/08/17 22:27 Dose: 10 u Insulin Human Regular (Novolin R) 0 unit SC ACHS [facility] PRN Reason: Protocol Last Admin: 11/09/17 17:33 Dose: 3 unit Lactic Acid (Lac-Hydrin 12% Lotion (225 G)) 1 gm EXT DAILY [facility] Last Admin: 11/09/17 09:57 Dose: 1 applic Lisinopril (Zestril) 5 mg PO DAILY [facility] Last Admin: 11/09/17 09:58 Dose: 5 mg Prednisone (Prednisone Tab) 15 mg PO DAILY [facility] PRN Reason: Taper Stop: 11/12/17 11:59 Last Admin: 11/09/17 09:59 Dose: 20 mg Promethazine HCl/Codeine (Phenergan/Codeine Oral Syrup) 5 ml PO Q4 PRN PRN Reason: Cough Saccharomyces Boulardii (Florastor) 250 mg PO BID [facility] Last Admin: 11/09/17 17:29 Dose: 250 mg Fluticasone/Salmeterol (Advair Diskus 250/50) 1 puff INH RQ12 [facility] Last Admin: 11/09/17 19:31 Dose: 1 puff Tiotropium [place] (Spiriva) 18 mcg INH RQ24 [facility] Last Admin: 11/08/17 15:39 Dose: Not Given - Labs Labs: 11/09/17 09:12 11/09/17 09:12 Attending/Attestation - Attestation I have personally seen and examined this patient.: Yes I have fully participated in the care of the patient.: Yes I have reviewed all pertinent clinical information, including history, physical exam and plan: Yes Notes (Text): patient was seen and examined I agree with the documentation of the assessment and the plan of the resident
[2017-11-09] MEDS: Fluticasone-Salmeterol 250-50mcg Diskus INH SCH ×2 (07:54→19:31)
[2017-11-09] MEDS: (Novolin R) Insulin Human Regular 100 units/ml vial SC SCH ×4 (08:15→22:26)
[2017-11-09 09:20] LABS: BASO # 0.2 K/uL (0.0-0.2); BASO % 1.5 % (0.0-2.0); EOS # 0.2 K/uL (0.0-0.7); EOS % 1.4 % (0.0-4.0); HEMOGLOBIN 13.3 g/dL (12.0-18.0); LYMPH # 3.7 K/uL (1.0-4.3); LYMPH % 29.6 % (20.0-40.0); MEAN CORPUSCULAR HGB CONC 33.8 g/dL (33.0-37.0); MEAN PLATELET VOLUME 9.4 fL (7.2-11.7); MONO % 16.1 % (0.0-10.0); NEUT # 6.5 K/uL (1.8-7.0); NEUT % 51.4 % (50.0-75.0); RBC 4.59 Mil/uL (4.40-5.90); RED CELL DISTRIBUTION WIDTH 16.5 % (11.5-14.5); WHITE BLOOD COUNT 12.6 K/uL (4.8-10.8)
[2017-11-09 09:42] LABS: ALB/GLOB RATIO 1.2 (1.0-2.1); ALBUMIN 3.8 g/dL (3.5-5.0); ALT/SGPT 30 U/L (21-72); AST/SGOT 24 U/L (17-59); BLOOD UREA NITROGEN 31 mg/dL (9-20); CALCIUM 8.9 mg/dl (8.6-10.4); GFR AFRICAN-AMERICAN > 60; GFR NON-AFRICAN AMERICAN > 60
[2017-11-09] MEDS: Ammonium Lactate 12% Lotion (225 g) EXT SCH (09:57)
[2017-11-09] MEDS: GlipiZIDE 5 mg SR Tab PO SCH (09:57)
[2017-11-09] MEDS: Pantoprazole 40 mg EC Tab PO SCH (09:57)
[2017-11-09] MEDS: guaiFENesin 600 mg ER Tab PO SCH ×2 (09:57→17:29)
[2017-11-09] MEDS: Saccharomyces Boulardi 250 mg Cap PO SCH ×2 (09:57→17:29)
--- NOTE | 2017-11-09 13:59 | CP.PCM.PN ---
Subjective - Date & Time of Evaluation Date of Evaluation: 11/09/17 Time of Evaluation: 09:00 - Subjective Subjective: patient seen and examined Being treated for VRE Still complaining of cough Afebrile Unlikely TB Objective - Vital Signs/Intake and Output Vital Signs (last 24 hours): Temp Pulse Resp BP Pulse Ox 97.8 F 75 20 143/66 98 11/09/17 08:00 11/09/17 08:00 11/09/17 08:00 11/09/17 08:00 11/09/17 08:00 Intake and Output: 11/09/17 11/09/17 06:59 18:59 Intake Total 480 Balance 480 - Medications Medications: Current Medications Albuterol/Ipratropium (Duoneb 3 Mg/0.5 Mg (3 Ml) Ud) 3 ml INH RQ4 [facility] Last Admin: 11/09/17 11:23 Dose: 3 ml Glipizide (Glucotrol Xl) 5 mg PO DAILY [facility] Last Admin: 11/09/17 09:57 Dose: 5 mg Guaifenesin (Mucinex La) 600 mg PO BID [facility] Last Admin: 11/09/17 09:57 Dose: 600 mg Imipenem/Cilastatin Sodium 500 (mg/ Sodium Chloride) 100 mls @ 100 mls/hr IVPB Q6H [facility] Last Admin: 11/09/17 13:28 Dose: 100 mls/hr Vancomycin HCl 1 gm/ Sodium (Chloride) 250 mls @ 166.667 mls/hr IVPB Q12H [facility] Stop: 11/12/17 02:31 Last Admin: 11/09/17 01:45 Dose: 166.667 mls/hr Insulin Glargine (Lantus) 10 unit SC HS [facility] Last Admin: 11/08/17 22:27 Dose: 10 u Insulin Human Regular (Novolin R) 0 unit SC ACHS [facility] PRN Reason: Protocol Last Admin: 11/09/17 13:27 Dose: 2 unit Lactic Acid (Lac-Hydrin 12% Lotion (225 G)) 1 gm EXT DAILY [facility] Last Admin: 11/09/17 09:57 Dose: 1 applic Lisinopril (Zestril) 5 mg PO DAILY [facility] Last Admin: 11/09/17 09:58 Dose: 5 mg Prednisone (Prednisone Tab) 15 mg PO DAILY [facility] PRN Reason: Taper Stop: 11/12/17 11:59 Last Admin: 11/09/17 09:59 Dose: 20 mg Promethazine HCl/Codeine (Phenergan/Codeine Oral Syrup) 5 ml PO Q4 PRN PRN Reason: Cough Saccharomyces Boulardii (Florastor) 250 mg PO BID [facility] Last Admin: 11/09/17 09:57 Dose: 250 mg Fluticasone/Salmeterol (Advair Diskus 250/50) 1 puff INH RQ12 [facility] Last Admin: 11/09/17 07:54 Dose: 1 puff Tiotropium [place] (Spiriva) 18 mcg INH RQ24 [facility] Last Admin: 11/08/17 15:39 Dose: Not Given - Labs Labs: 11/09/17 09:12 11/09/17 09:12 - Head Exam Head Exam: ATRAUMATIC, NORMOCEPHALIC - Eye Exam Eye Exam: Normal appearance - ENT Exam ENT Exam: Mucous Membranes Moist - Neck Exam Neck Exam: Normal Inspection - Respiratory Exam Respiratory Exam: Rhonchi - Cardiovascular Exam Cardiovascular Exam: REGULAR RHYTHM - GI/Abdominal Exam GI & Abdominal Exam: Soft, Normal Bowel Sounds Assessment and Plan (1) Acute exacerbation of chronic obstructive pulmonary disease Assessment & Plan: Continue IV antibiotics For sputum AFB Continue nebulizer treatment Status: Acute (2) S/P IVC filter Status: Acute
[2017-11-09] MEDS: (Lantus) Insulin Glargine, Recombinant SC SCH (22:30)
[2017-11-10] MEDS: Albuterol-Ipratrop 3 mg / 0.5 (3 ml) UD INH SCH ×6 (00:27→20:24)
--- NOTE | 2017-11-10 07:53 | CP.PCM.PN ---
Subjective - Date & Time of Evaluation Date of Evaluation: 11/10/17 Time of Evaluation: 07:42 - Subjective Subjective: Medicine Progress Note: Hospitalist Service Patient seen and examined at bedside. Per nursing, no acute events overnight. Patient is doing well, offers no complaints at this time. Still coughing with brown sputum. Denies fevers, chills, nausea/vomiting, cp, palpitations, sob, abdominal pain, urinary symptoms, changes in bowel habits. Objective - Vital Signs/Intake and Output Vital Signs (last 24 hours): Temp Pulse Resp BP Pulse Ox 97.9 F 84 20 131/68 97 11/10/17 00:00 11/10/17 00:00 11/10/17 00:00 11/10/17 00:00 11/10/17 00:00 Intake and Output: 11/10/17 11/10/17 06:59 18:59 Intake Total 550 Balance 550 - Medications Medications: Current Medications Albuterol/Ipratropium (Duoneb 3 Mg/0.5 Mg (3 Ml) Ud) 3 ml INH RQ4 [facility] Last Admin: 11/10/17 07:35 Dose: 3 ml Glipizide (Glucotrol Xl) 5 mg PO DAILY [facility] Last Admin: 11/09/17 09:57 Dose: 5 mg Guaifenesin (Mucinex La) 600 mg PO BID [facility] Last Admin: 11/09/17 17:29 Dose: 600 mg Imipenem/Cilastatin Sodium 500 (mg/ Sodium Chloride) 100 mls @ 100 mls/hr IVPB Q6H [facility] Last Admin: 11/10/17 01:32 Dose: 100 mls/hr Vancomycin HCl 1 gm/ Sodium (Chloride) 250 mls @ 166.667 mls/hr IVPB Q12H [facility] Stop: 11/12/17 02:31 Last Admin: 11/10/17 01:33 Dose: 166.667 mls/hr Insulin Glargine (Lantus) 10 unit SC HS [facility] Last Admin: 11/09/17 22:30 Dose: 10 u Insulin Human Regular (Novolin R) 0 unit SC ACHS [facility] PRN Reason: Protocol Last Admin: 11/09/17 22:26 Dose: Not Given Lactic Acid (Lac-Hydrin 12% Lotion (225 G)) 1 gm EXT DAILY [facility] Last Admin: 11/09/17 09:57 Dose: 1 applic Lisinopril (Zestril) 5 mg PO DAILY [facility] Last Admin: 11/09/17 09:58 Dose: 5 mg Prednisone (Prednisone Tab) 15 mg PO DAILY [facility] PRN Reason: Taper Stop: 11/12/17 11:59 Last Admin: 11/09/17 09:59 Dose: 20 mg Promethazine HCl/Codeine (Phenergan/Codeine Oral Syrup) 5 ml PO Q4 PRN PRN Reason: Cough Saccharomyces Boulardii (Florastor) 250 mg PO BID [facility] Last Admin: 11/09/17 17:29 Dose: 250 mg Fluticasone/Salmeterol (Advair Diskus 250/50) 1 puff INH RQ12 [facility] Last Admin: 11/09/17 19:31 Dose: 1 puff Tiotropium [place] (Spiriva) 18 mcg INH RQ24 [facility] Last Admin: 11/08/17 15:39 Dose: Not Given - Labs Labs: 11/09/17 09:12 11/09/17 09:12 - Additional Findings Additional findings: - Constitutional Appears: Non-toxic, No Acute Distress - Eye Exam Eye Exam: Normal appearance. absent: Scleral icterus - Respiratory Exam Respiratory Exam: Decreased Breath Sounds, Rhonchi, Wheezes. absent: Clear to Ausculation Bilateral, Rales - Cardiovascular Exam Cardiovascular Exam: REGULAR RHYTHM, RRR, +S1, +S2. absent: Gallop, Rubs - GI/Abdominal Exam GI & Abdominal Exam: Soft, Normal Bowel Sounds. absent: Tenderness - Extremities Exam Extremities Exam: Normal Inspection. absent: Pedal Edema - Back Exam Back Exam: NORMAL INSPECTION - Psychiatric Exam Psychiatric exam: Normal Affect, Normal Mood - Skin Skin Exam: Normal Color. absent: Pallor Assessment and Plan - Assessment and Plan (Free Text) Assessment: 1) COPD exacerbation Atelectasis * 30 pack year smoking hx * Pulmonary consult, Dr Hernández * Encourage incentive spirometry * Blood culture 10/28 negative up to date * Sputum culture 10/28 (+) for ESBL E.Coli and MRSA * On contact isolation * F/U repeat Sputum culture 11/03/17 * Imaging: * CXR 10/24 - No acute findings. * Repeat CXR 10/27: Both lower lobe atelectasis. No lobar pneumonia. * Repeat CXR 10/30: Very small left pleural effusion. Otherwise unremarkable. * CT Chest (10/26/17): paraseptal emphysema in upper lobes, worse on the right and mild centrilobular emphysema in the lungs. No pneumothorax. No evidence of consolidation or pleural effusion * Meds: * Duoneb Q4 scheduled * Advair 250/50 1 puff Q12H * Solumedrol 40 mg IV Q12H -> Start 8 day prednisone taper 11/04/2017 * Tiotropium 1 INH QD * Promethazine w codeine 5ml PO Q4H PRN cough * Mucinex 600mg PO BID * IV Abx: Azithromycin 500 mg IV daily (started 10/25) and Ceftriaxone 1 gm IV daily (started 10/25) - discontinued due to sputum culture positive for ESBL E.Coli and MRSA. We gave Vanco 1g IV BID on 10/31 however we switched to Gentamycin as this has better coverage. * Started on Primaxin 500mg IVPB QID (started on 10/31/17) * Started on Gentamicin 80mg IVPB TID (started 11/01/17) - stopped 11/06/17 due to high genta trough * Vancomycin 1g IVP QD * Florastor 250mg PO BID 2) Leukocytosis * no bandemia * Procalcitonin 0.05 (L) * Flu NEGATIVE, Mycoplasma pneumoniae IgM NEGATIVE, Legionella NEGATIVE * Blood Culture 10/28 - negative up to date * Sputum Culture 10/28 - positive for ESBL E. Coli and MRSA * Started on Primaxin 500mg IVPB q6h (started on 10/31/17) * Started on Gentamicin 80mg IVPB TID (started 11/01/17) - stopped 11/06/17 due to high genta trough * Vancomycin 1g IVP BID (started 11/06/17) * Florastor 250mg PO BID * F/U repeat Sputum culture 11/03/17 3) History of Active Tuberculosis * Per medical records, there was an admitting diagnosis of Tuberculosis in 2011 , however further information not available and patient denies ever having TB. 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 * F/U AFBs x3 * Place on airborne isolation until AFBs are back 4) History of Diabetes (controlled) * Hemoglobin A1c 10/11/17 was 6.2 * Accuchecks AC and HS * Glipizde 5mg PO daily * ISS * Lantus 10 units subqHS 5) History of PE * IVC filter in place * Patient is not on any therapuetic anticoagulation secondary to history of retroperitoneal bleed * CT Chest (10/26/17): paraseptal emphysema in upper lobes, worse on the right and mild centrilobular emphysema in the lungs. No pneumothorax. No evidence of consolidation or pleural effusion. 6) History of Left Inguinal Hernia * Ultrasound evaluation confirms * Evaluated by surgery-->Will need outpatient follow up for repair 7) Tobacco Abuse * Quit 2 months ago, prior smoking since age 13, 30 pack year smoking hx * Nictone patch q daily 8) Hypertension * Norvasc 5mg PO QD 9) Prophylactic Measures * Protonix 40 PO daily * SCDs * Lovenox 40mg SC daily * Heart Healthy Diet with moderate consistent CHO * IVC filter * Physical therapy eval
[2017-11-10] MEDS: (Novolin R) Insulin Human Regular 100 units/ml vial SC SCH ×5 (07:54→21:51)
[2017-11-10 08:06] LABS: BASO % 0.3 % (0.0-2.0); EOS # 0.2 K/uL (0.0-0.7); EOS % 1.7 % (0.0-4.0); HEMOGLOBIN 11.9 g/dL (12.0-18.0); LYMPH # 2.7 K/uL (1.0-4.3); LYMPH % 25.8 % (20.0-40.0); MEAN CELL VOLUME 85.8 fL (80.0-94.0); MEAN CORPUSCULAR HEMOGLOBIN 28.1 pg (27.0-31.0); MEAN CORPUSCULAR HGB CONC 32.7 g/dL (33.0-37.0); MEAN PLATELET VOLUME 8.4 fL (7.2-11.7); MONO # 1.7 K/uL (0.0-0.8); MONO % 16.1 % (0.0-10.0); NEUT # 5.8 K/uL (1.8-7.0); NEUT % 56.1 % (50.0-75.0); NRBC % 0.1 % (0.0-2.0); RBC 4.23 Mil/uL (4.40-5.90); RED CELL DISTRIBUTION WIDTH 16.3 % (11.5-14.5); WHITE BLOOD COUNT 10.3 K/uL (4.8-10.8)
[2017-11-10 08:37] LABS: ALB/GLOB RATIO 1.2 (1.0-2.1); ALBUMIN 3.3 g/dL (3.5-5.0); ALT/SGPT 22 U/L (21-72); AST/SGOT 21 U/L (17-59); BLOOD UREA NITROGEN 26 mg/dL (9-20); CALCIUM 8.2 mg/dl (8.6-10.4); GFR AFRICAN-AMERICAN > 60; GFR NON-AFRICAN AMERICAN > 60
[2017-11-10] MEDS: Fluticasone-Salmeterol 250-50mcg Diskus INH SCH ×2 (09:07→20:25)
[2017-11-10] MEDS: Tiotropium 18 mcg Cap For Inhalation INH SCH (09:10)
[2017-11-10] MEDS: guaiFENesin 600 mg ER Tab PO SCH ×2 (09:51→17:41)
[2017-11-10] MEDS: Saccharomyces Boulardi 250 mg Cap PO SCH ×2 (09:51→17:41)
[2017-11-10] MEDS: GlipiZIDE 5 mg SR Tab PO SCH (09:51)
[2017-11-10] MEDS: Ammonium Lactate 12% Lotion (225 g) EXT SCH (09:52)
[2017-11-10] MEDS: (Lantus) Insulin Glargine, Recombinant SC SCH (21:29)
[2017-11-11] MEDS: Albuterol-Ipratrop 3 mg / 0.5 (3 ml) UD INH SCH ×7 (00:05→23:56)
[2017-11-11] MEDS: (Novolin R) Insulin Human Regular 100 units/ml vial SC SCH ×4 (07:59→22:13)
[2017-11-11] MEDS: Fluticasone-Salmeterol 250-50mcg Diskus INH SCH ×2 (08:26→19:17)
[2017-11-11 08:49] LABS: BASO % 0.3 % (0.0-2.0); EOS # 0.2 K/uL (0.0-0.7); HEMOGLOBIN 12.1 g/dL (12.0-18.0); LYMPH # 2.7 K/uL (1.0-4.3); LYMPH % 23.9 % (20.0-40.0); MEAN CELL VOLUME 86.2 fL (80.0-94.0); MEAN CORPUSCULAR HEMOGLOBIN 28.1 pg (27.0-31.0); MEAN CORPUSCULAR HGB CONC 32.6 g/dL (33.0-37.0); MEAN PLATELET VOLUME 8.6 fL (7.2-11.7); MONO # 1.5 K/uL (0.0-0.8); MONO % 13.6 % (0.0-10.0); NEUT # 6.7 K/uL (1.8-7.0); NEUT % 60.2 % (50.0-75.0); RBC 4.31 Mil/uL (4.40-5.90); RED CELL DISTRIBUTION WIDTH 16.2 % (11.5-14.5); WHITE BLOOD COUNT 11.2 K/uL (4.8-10.8)
--- NOTE | 2017-11-11 09:24 | CP.PCM.PN ---
Subjective - Date & Time of Evaluation Date of Evaluation: 11/11/17 Time of Evaluation: 09:22 - Subjective Subjective: PGY-[address] Hernández. No acute events noted overnight. Patient reports cough and sputum production that is overall improved since admission. He was able to provide sputum sample # 3 this morning. He denied cp, abd pain, f/c, n/v/c/d. Objective - Vital Signs/Intake and Output Vital Signs (last 24 hours): Temp Pulse Resp BP Pulse Ox 98.2 F 82 20 127/61 96 11/11/17 07:39 11/11/17 07:39 11/11/17 07:39 11/11/17 07:39 11/11/17 07:39 Intake and Output: 11/11/17 11/11/17 06:59 18:59 Intake Total 1050 Output Total 600 Balance 450 - Medications Medications: Current Medications Albuterol/Ipratropium (Duoneb 3 Mg/0.5 Mg (3 Ml) Ud) 3 ml INH RQ4 [facility] Last Admin: 11/11/17 08:26 Dose: 3 ml Glipizide (Glucotrol Xl) 5 mg PO DAILY [facility] Last Admin: 11/10/17 09:51 Dose: 5 mg Guaifenesin (Mucinex La) 600 mg PO BID [facility] Last Admin: 11/10/17 17:41 Dose: 600 mg Imipenem/Cilastatin Sodium 500 (mg/ Sodium Chloride) 100 mls @ 100 mls/hr IVPB Q6H [facility] Last Admin: 11/11/17 08:18 Dose: 100 mls/hr Vancomycin HCl 1 gm/ Sodium (Chloride) 250 mls @ 166.667 mls/hr IVPB Q12H [facility] Stop: 11/12/17 02:31 Last Admin: 11/11/17 02:30 Dose: 166.667 mls/hr Insulin Glargine (Lantus) 10 unit SC HS [facility] Last Admin: 11/10/17 21:29 Dose: 10 u Insulin Human Regular (Novolin R) 0 unit SC ACHS [facility] PRN Reason: Protocol Last Admin: 11/11/17 07:59 Dose: Not Given Lactic Acid (Lac-Hydrin 12% Lotion (225 G)) 1 gm EXT DAILY [facility] Last Admin: 11/10/17 09:52 Dose: 1 applic Lisinopril (Zestril) 5 mg PO DAILY [facility] Last Admin: 11/10/17 09:51 Dose: 5 mg Prednisone (Prednisone Tab) 10 mg PO DAILY [facility] PRN Reason: Taper Stop: 11/12/17 11:59 Last Admin: 11/10/17 09:52 Dose: 15 mg Promethazine HCl/Codeine (Phenergan/Codeine Oral Syrup) 5 ml PO Q4 PRN PRN Reason: Cough Saccharomyces Boulardii (Florastor) 250 mg PO BID [facility] Last Admin: 11/10/17 17:41 Dose: 250 mg Fluticasone/Salmeterol (Advair Diskus 250/50) 1 puff INH RQ12 [facility] Last Admin: 11/11/17 08:26 Dose: 1 puff Tiotropium [place] (Spiriva) 18 mcg INH RQ24 [facility] Last Admin: 11/10/17 09:10 Dose: Not Given - Labs Labs: 11/11/17 08:42 11/10/17 07:41 - Additional Findings Additional findings: - Constitutional Appears: Non-toxic, No Acute Distress - Eye Exam Eye Exam: Normal appearance. absent: Scleral icterus - Respiratory Exam Respiratory Exam: Decreased Breath Sounds, Rhonchi, Wheezes. absent: Clear to Ausculation Bilateral, Rales - Cardiovascular Exam Cardiovascular Exam: REGULAR RHYTHM, RRR, +S1, +S2. absent: Gallop, Rubs - GI/Abdominal Exam GI & Abdominal Exam: Soft, Normal Bowel Sounds. absent: Tenderness - Extremities Exam Extremities Exam: Normal Inspection. absent: Pedal Edema - Back Exam Back Exam: NORMAL INSPECTION - Psychiatric Exam Psychiatric exam: Normal Affect, Normal Mood - Skin Skin Exam: Normal Color. absent: Pallor Assessment and Plan - Assessment and Plan (Free Text) Assessment: 1) COPD exacerbation Atelectasis 11/08: Patient is still wheezing with some crackles, continue with duonex, Solumedrol, Sprivia, cough medication. continue isolation, will need to get AFB culture to rule out TB. continue with IV Pimaxin started in 10/31 (day 8). * 30 pack year smoking hx * Pulmonary consult, Dr Hernández * Encourage incentive spirometry * Blood culture 10/28 negative up to date * Sputum culture 10/28 (+) for ESBL E.Coli and MRSA * On contact isolation * F/U repeat Sputum culture 11/03/17 * Imaging: * CXR 10/24 - No acute findings. * Repeat CXR 10/27: Both lower lobe atelectasis. No lobar pneumonia. * Repeat CXR 10/30: Very small left pleural effusion. Otherwise unremarkable. * CT Chest (10/26/17): paraseptal emphysema in upper lobes, worse on the right and mild centrilobular emphysema in the lungs. No pneumothorax. No evidence of consolidation or pleural effusion * Meds: * Duoneb Q4 scheduled * Advair 250/50 1 puff Q12H * Solumedrol 40 mg IV Q12H -> Start 8 day prednisone taper 11/04/2017 * Tiotropium 1 INH QD * Promethazine w codeine 5ml PO Q4H PRN cough * Mucinex 600mg PO BID * Acetylcysteine 20% 4ml INH Q6H * IV Abx: Azithromycin 500 mg IV daily (started 10/25) and Ceftriaxone 1 gm IV daily (started 10/25) - discontinued due to sputum culture positive for ESBL E.Coli and MRSA. We gave Vanco 1g IV BID on 10/31 however we switched to Gentamycin as this has better coverage. * Started on Primaxin 500mg IVPB QID (started on 10/31/17) * Started on Gentamicin 80mg IVPB TID (started 11/01/17) - stopped 11/06/17 due to high genta trough * Vancomycin 1g IVP QD * Florastor 250mg PO BID 2) Leukocytosis -resolved * 11/08: resolved, continue IV Pimaxin. * no bandemia * Procalcitonin 0.05 (L) * Flu NEGATIVE, Mycoplasma pneumoniae IgM NEGATIVE, Legionella NEGATIVE * Blood Culture 10/28 - negative up to date * Sputum Culture 10/28 - positive for ESBL E. Coli and MRSA * Started on Primaxin 500mg IVPB q6h (started on 10/31/17) * Started on Gentamicin 80mg IVPB TID (started 11/01/17) - stopped 11/06/17 due to high genta trough * Vancomycin 1g IVP QD * Florastor 250mg PO BID * F/U repeat Sputum culture 11/03/17 3) History of Active Tuberculosis * 11/08: AFB x3, 2 have been recieved the 3rd is pending collection. First sputum collected is negative. * Per medical records, patient diagnosed with Active Tuberculosis in 2011, however further information not available. 3 consecutive AFB were negative in 2016. * / Mycobacterium sputum: No AFB seen * F/U AFBs x3 * Place on airborne isolation until AFBs are back 4) History of Diabetes (controlled) * Hemoglobin A1c 10/11/17 was 6.2 * Accuchecks AC and HS * Glipizde 5mg PO daily * ISS * Lantus 10 units subqHS 5) History of PE * IVC filter in place * Patient is not on any therapuetic anticoagulation secondary to history of retroperitoneal bleed * CT Chest (10/26/17): paraseptal emphysema in upper lobes, worse on the right and mild centrilobular emphysema in the lungs. No pneumothorax. No evidence of consolidation or pleural effusion. 6) History of Left Inguinal Hernia * Ultrasound evaluation confirms * Evaluated by surgery-->Will need outpatient follow up for repair 7) Tobacco Abuse * Quit 2 months ago, prior smoking since age 13, 30 pack year smoking hx * Nictone patch q daily 8) Hypertension * Norvasc 5mg PO QD 9) Prophylactic Measures * Protonix 40 PO daily * SCDs * Lovenox 40mg SC daily * Heart Healthy Diet with moderate consistent CHO * IVC filter * Physical therapy eval and treat * Occupational therapy eval and treat
[2017-11-11 09:34] LABS: ALB/GLOB RATIO 1.3 (1.0-2.1); ALBUMIN 3.6 g/dL (3.5-5.0); ALT/SGPT 29 U/L (21-72); AST/SGOT 19 U/L (17-59); BLOOD UREA NITROGEN 26 mg/dL (9-20); CALCIUM 8.3 mg/dl (8.6-10.4); GFR AFRICAN-AMERICAN > 60; GFR NON-AFRICAN AMERICAN > 60
[2017-11-11] MEDS: GlipiZIDE 5 mg SR Tab PO SCH (09:52)
[2017-11-11] MEDS: Saccharomyces Boulardi 250 mg Cap PO SCH ×2 (09:52→17:32)
[2017-11-11] MEDS: guaiFENesin 600 mg ER Tab PO SCH ×2 (09:52→17:35)
[2017-11-11] MEDS: Ammonium Lactate 12% Lotion (225 g) EXT SCH (09:54)
[2017-11-11] MEDS: Tiotropium 18 mcg Cap For Inhalation INH SCH (11:39)
[2017-11-11] MEDS: Vancomycin 1 gm/NS 200 ml 1 GM/200 ML BAG IVPB SCH (15:30)
[2017-11-11] MEDS: (Lantus) Insulin Glargine, Recombinant SC SCH (22:12)
[2017-11-12] MEDS: Acetylcysteine 20% Inhal Soln (4ml) INH SCH ×5 (01:16→19:05)
[2017-11-12] MEDS: Vancomycin 1 gm/NS 200 ml 1 GM/200 ML BAG IVPB SCH (02:33)
[2017-11-12] MEDS: Albuterol-Ipratrop 3 mg / 0.5 (3 ml) UD INH SCH ×5 (04:44→19:06)
[2017-11-12 07:45] LABS: BASO % 0.4 % (0.0-2.0); EOS # 0.2 K/uL (0.0-0.7); EOS % 2.6 % (0.0-4.0); HEMOGLOBIN 11.8 g/dL (12.0-18.0); LYMPH # 2.4 K/uL (1.0-4.3); LYMPH % 26.1 % (20.0-40.0); MEAN CELL VOLUME 85.9 fL (80.0-94.0); MEAN CORPUSCULAR HEMOGLOBIN 28.6 pg (27.0-31.0); MEAN CORPUSCULAR HGB CONC 33.2 g/dL (33.0-37.0); MEAN PLATELET VOLUME 8.3 fL (7.2-11.7); MONO # 1.3 K/uL (0.0-0.8); MONO % 13.9 % (0.0-10.0); NEUT # 5.2 K/uL (1.8-7.0); NRBC % 0.1 % (0.0-2.0); RBC 4.13 Mil/uL (4.40-5.90); RED CELL DISTRIBUTION WIDTH 16.4 % (11.5-14.5); WHITE BLOOD COUNT 9.1 K/uL (4.8-10.8)
[2017-11-12] MEDS: (Novolin R) Insulin Human Regular 100 units/ml vial SC SCH ×4 (07:51→22:17)
--- NOTE | 2017-11-12 08:34 | CP.PCM.PN ---
Subjective - Date & Time of Evaluation Date of Evaluation: 11/12/17 Time of Evaluation: 08:32 - Subjective Subjective: PGY-[address] Hernández. No acute events noted overnight. Patient reports cough and sputum production that is overall improved since admission. Micro lab has received all AFBs and sputum samples. He denied cp, abd pain, f/c, n/v/c/d. Objective - Vital Signs/Intake and Output Vital Signs (last 24 hours): Temp Pulse Resp BP Pulse Ox 97.5 F L 84 20 114/61 98 11/12/17 08:16 11/12/17 08:16 11/12/17 08:16 11/12/17 08:16 11/12/17 08:16 Intake and Output: 11/12/17 11/12/17 06:59 18:59 Intake Total 780 Balance 780 - Medications Medications: Current Medications Acetylcysteine (Acetylcysteine 20%) 4 ml INH Q6H [facility] Last Admin: 11/12/17 01:26 Dose: Not Given Albuterol/Ipratropium (Duoneb 3 Mg/0.5 Mg (3 Ml) Ud) 3 ml INH RQ4 [facility] Last Admin: 11/12/17 07:26 Dose: 3 ml Glipizide (Glucotrol Xl) 5 mg PO DAILY [facility] Last Admin: 11/11/17 09:52 Dose: 5 mg Guaifenesin (Mucinex La) 600 mg PO BID [facility] Last Admin: 11/11/17 17:35 Dose: 600 mg Imipenem/Cilastatin Sodium 500 (mg/ Sodium Chloride) 100 mls @ 100 mls/hr IVPB Q6H [facility] Last Admin: 11/12/17 07:56 Dose: 100 mls/hr Insulin Glargine (Lantus) 10 unit SC HS [facility] Last Admin: 11/11/17 22:12 Dose: 10 u Insulin Human Regular (Novolin R) 0 unit SC ACHS [facility] PRN Reason: Protocol Last Admin: 11/12/17 07:51 Dose: Not Given Lactic Acid (Lac-Hydrin 12% Lotion (225 G)) 1 gm EXT DAILY [facility] Last Admin: 11/11/17 09:54 Dose: 1 applic Lisinopril (Zestril) 5 mg PO DAILY [facility] Last Admin: 11/11/17 09:52 Dose: 5 mg Prednisone (Prednisone Tab) 5 mg PO DAILY [facility] PRN Reason: Taper Stop: 11/12/17 11:59 Last Admin: 11/11/17 09:53 Dose: 10 mg Promethazine HCl/Codeine (Phenergan/Codeine Oral Syrup) 5 ml PO Q4 PRN PRN Reason: Cough Saccharomyces Boulardii (Florastor) 250 mg PO BID [facility] Last Admin: 11/11/17 17:32 Dose: 250 mg Fluticasone/Salmeterol (Advair Diskus 250/50) 1 puff INH RQ12 [facility] Last Admin: 11/11/17 19:17 Dose: 1 puff Tiotropium [place] (Spiriva) 18 mcg INH RQ24 [facility] Last Admin: 11/11/17 11:39 Dose: Not Given - Labs Labs: 11/12/17 07:33 11/11/17 08:42 - Additional Findings Additional findings: - Constitutional Appears: Non-toxic, No Acute Distress - Eye Exam Eye Exam: Normal appearance. absent: Scleral icterus - Respiratory Exam Respiratory Exam: Decreased Breath Sounds, Rhonchi, Wheezes. absent: Clear to Ausculation Bilateral, Rales - Cardiovascular Exam Cardiovascular Exam: REGULAR RHYTHM, RRR, +S1, +S2. absent: Gallop, Rubs - GI/Abdominal Exam GI & Abdominal Exam: Soft, Normal Bowel Sounds. absent: Tenderness - Extremities Exam Extremities Exam: Normal Inspection. absent: Pedal Edema - Back Exam Back Exam: NORMAL INSPECTION - Psychiatric Exam Psychiatric exam: Normal Affect, Normal Mood - Skin Skin Exam: Normal Color. absent: Pallor Assessment and Plan - Assessment and Plan (Free Text) Assessment: 1) COPD exacerbation Atelectasis * 30 pack year smoking hx * Pulmonary consult, Dr Hernández * Encourage incentive spirometry * Blood culture 10/28 negative up to date * Sputum culture 10/28 (+) for ESBL E.Coli and MRSA * On contact isolation * F/U repeat Sputum culture 11/09/17 * Imaging: * CXR 10/24 - No acute findings. * Repeat CXR 10/27: Both lower lobe atelectasis. No lobar pneumonia. * Repeat CXR 10/30: Very small left pleural effusion. Otherwise unremarkable. * CT Chest (10/26/17): paraseptal emphysema in upper lobes, worse on the right and mild centrilobular emphysema in the lungs. No pneumothorax. No evidence of consolidation or pleural effusion * Meds: * Duoneb Q4 scheduled * Advair 250/50 1 puff Q12H * Solumedrol 40 mg IV Q12H -> Start 8 day prednisone taper 11/04/2017 * Tiotropium 1 INH QD * Promethazine w codeine 5ml PO Q4H PRN cough * Mucinex 600mg PO BID * Acetylcysteine 20% 4ml INH Q6H * IV Abx: Azithromycin 500 mg IV daily (started 10/25) and Ceftriaxone 1 gm IV daily (started 10/25) - discontinued due to sputum culture positive for ESBL E.Coli and MRSA. We gave Vanco 1g IV BID on 10/31 however we switched to Gentamycin as this has better coverage. * Started on Primaxin 500mg IVPB QID (started on 10/31/17) * Started on Gentamicin 80mg IVPB TID (started 11/01/17) - stopped 11/06/17 due to high genta trough * Vancomycin 1g IVP QD * Florastor 250mg PO BID 2) Leukocytosis -resolved * no bandemia * Procalcitonin 0.05 (L) * Flu NEGATIVE, Mycoplasma pneumoniae IgM NEGATIVE, Legionella NEGATIVE * Blood Culture 10/28 - negative up to date * Sputum Culture 10/28 - positive for ESBL E. Coli and MRSA * Started on Primaxin 500mg IVPB q6h (started on 10/31/17) * Started on Gentamicin 80mg IVPB TID (started 11/01/17) - stopped 11/06/17 due to high genta trough * Vancomycin 1g IVP QD * Florastor 250mg PO BID * F/U repeat Sputum culture 11/09/17 3) History of Active Tuberculosis * 11/08: AFB x3, 2 have been recieved the 3rd is pending collection. First sputum collected is negative. * Per medical records, patient diagnosed with Active Tuberculosis in 2011, however further information not available. 3 consecutive AFB were negative in 2016. 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 No pneumothorax. No evidence of consolidation or pleural effusion. 6) History of Left Inguinal Hernia * Ultrasound evaluation confirms * Evaluated by surgery-->Will need outpatient follow up for repair 7) Tobacco Abuse * Quit 2 months ago, prior smoking since age 13, 30 pack year smoking hx * Nictone patch q daily 8) Hypertension * Norvasc 5mg PO QD 9) Prophylactic Measures * Protonix 40 PO daily * SCDs * Lovenox 40mg SC daily * Heart Healthy Diet with moderate consistent CHO * IVC filter * Physical therapy eval and treat * Occupational therapy eval and treat
[2017-11-12 09:16] LABS: ALB/GLOB RATIO 1.2 (1.0-2.1); ALBUMIN 3.4 g/dL (3.5-5.0); ALT/SGPT 28 U/L (21-72); AST/SGOT 23 U/L (17-59); BLOOD UREA NITROGEN 25 mg/dL (9-20); CALCIUM 8.2 mg/dl (8.6-10.4); GFR AFRICAN-AMERICAN > 60; GFR NON-AFRICAN AMERICAN > 60
[2017-11-12] MEDS: Fluticasone-Salmeterol 250-50mcg Diskus INH SCH ×2 (10:01→19:06)
[2017-11-12] MEDS: guaiFENesin 600 mg ER Tab PO SCH ×2 (10:03→17:49)
[2017-11-12] MEDS: Saccharomyces Boulardi 250 mg Cap PO SCH ×2 (10:03→17:49)
[2017-11-12] MEDS: GlipiZIDE 5 mg SR Tab PO SCH (10:03)
[2017-11-12] MEDS: Ammonium Lactate 12% Lotion (225 g) EXT SCH (10:03)
[2017-11-12] MEDS: (Lantus) Insulin Glargine, Recombinant SC SCH (22:20)
[2017-11-13] MEDS: Acetylcysteine 20% Inhal Soln (4ml) INH SCH ×6 (00:09→19:14)
[2017-11-13] MEDS: Albuterol-Ipratrop 3 mg / 0.5 (3 ml) UD INH SCH ×5 (00:09→19:15)
[2017-11-13] MEDS: (Novolin R) Insulin Human Regular 100 units/ml vial SC SCH ×4 (07:49→21:28)
[2017-11-13 08:02] LABS: BASO % 0.4 % (0.0-2.0); EOS # 0.1 K/uL (0.0-0.7); EOS % 0.9 % (0.0-4.0); HEMOGLOBIN 11.6 g/dL (12.0-18.0); LYMPH # 2.5 K/uL (1.0-4.3); LYMPH % 26.6 % (20.0-40.0); MEAN CELL VOLUME 85.4 fL (80.0-94.0); MEAN CORPUSCULAR HEMOGLOBIN 28.5 pg (27.0-31.0); MEAN CORPUSCULAR HGB CONC 33.3 g/dL (33.0-37.0); MEAN PLATELET VOLUME 8.5 fL (7.2-11.7); MONO # 1.3 K/uL (0.0-0.8); MONO % 13.5 % (0.0-10.0); NEUT # 5.5 K/uL (1.8-7.0); NEUT % 58.6 % (50.0-75.0); NRBC % 0.1 % (0.0-2.0); RBC 4.07 Mil/uL (4.40-5.90); RED CELL DISTRIBUTION WIDTH 16.4 % (11.5-14.5); WHITE BLOOD COUNT 9.4 K/uL (4.8-10.8)
[2017-11-13 08:32] LABS: ALBUMIN 3.4 g/dL (3.5-5.0); ALT/SGPT 28 U/L (21-72); AST/SGOT 25 U/L (17-59); BLOOD UREA NITROGEN 27 mg/dL (9-20); CALCIUM 8.2 mg/dl (8.6-10.4); GFR AFRICAN-AMERICAN > 60; GFR NON-AFRICAN AMERICAN > 60
[2017-11-13 08:46] LABS: ALB/GLOB RATIO 1.2 (1.0-2.1)
[2017-11-13] MEDS: Ammonium Lactate 12% Lotion (225 g) EXT SCH (09:53)
[2017-11-13] MEDS: GlipiZIDE 5 mg SR Tab PO SCH (09:54)
[2017-11-13] MEDS: guaiFENesin 600 mg ER Tab PO SCH ×2 (09:54→17:43)
[2017-11-13] MEDS: Saccharomyces Boulardi 250 mg Cap PO SCH ×2 (09:54→17:43)
[2017-11-13] MEDS: Fluticasone-Salmeterol 250-50mcg Diskus INH SCH ×2 (11:12→19:15)
--- NOTE | 2017-11-13 14:34 | CP.PCM.PN ---
Subjective - Date & Time of Evaluation Date of Evaluation: 11/13/17 Time of Evaluation: 14:32 - Subjective Subjective: PGY-[address] Hernández. No acute events noted overnight. Patient reports cough and sputum production that is overall improved since admission. Micro lab has received all AFBs and sputum samples and AFBs are all negative. He denied cp, abd pain, f/c, n/v/c/d. Objective - Vital Signs/Intake and Output Vital Signs (last 24 hours): Temp Pulse Resp BP Pulse Ox 98.2 F 86 20 127/72 98 11/13/17 08:08 11/13/17 08:08 11/13/17 08:08 11/13/17 08:08 11/13/17 08:08 Intake and Output: 11/13/17 11/13/17 06:59 18:59 Intake Total 750 Balance 750 - Medications Medications: Current Medications Acetylcysteine (Acetylcysteine 20%) 4 ml INH RQ4 [facility] Last Admin: 11/13/17 11:13 Dose: Not Given Albuterol/Ipratropium (Duoneb 3 Mg/0.5 Mg (3 Ml) Ud) 3 ml INH RQ4 [facility] Last Admin: 11/13/17 11:12 Dose: 3 ml Glipizide (Glucotrol Xl) 5 mg PO DAILY [facility] Last Admin: 11/13/17 09:54 Dose: 5 mg Guaifenesin (Mucinex La) 600 mg PO BID [facility] Last Admin: 11/13/17 09:54 Dose: 600 mg Imipenem/Cilastatin Sodium 500 (mg/ Sodium Chloride) 100 mls @ 100 mls/hr IVPB Q6H [facility] Last Admin: 11/13/17 13:29 Dose: 100 mls/hr Insulin Glargine (Lantus) 10 unit SC HS [facility] Last Admin: 11/12/17 22:20 Dose: 10 u Insulin Human Regular (Novolin R) 0 unit SC ACHS [facility] PRN Reason: Protocol Last Admin: 11/13/17 11:43 Dose: Not Given Lactic Acid (Lac-Hydrin 12% Lotion (225 G)) 1 gm EXT DAILY [facility] Last Admin: 11/13/17 09:53 Dose: 1 applic Lisinopril (Zestril) 5 mg PO DAILY [facility] Last Admin: 11/13/17 09:54 Dose: 5 mg Prednisone (Prednisone Tab) 20 mg PO DAILY [facility] Last Admin: 11/13/17 09:54 Dose: 20 mg Promethazine HCl/Codeine (Phenergan/Codeine Oral Syrup) 5 ml PO Q4 PRN PRN Reason: Cough Saccharomyces Boulardii (Florastor) 250 mg PO BID [facility] Last Admin: 11/13/17 09:54 Dose: 250 mg Fluticasone/Salmeterol (Advair Diskus 250/50) 1 puff INH RQ12 [facility] Last Admin: 11/13/17 11:12 Dose: 1 puff - Labs Labs: 11/13/17 07:51 11/13/17 07:51 - Additional Findings Additional findings: - Constitutional Appears: Non-toxic, No Acute Distress - Eye Exam Eye Exam: Normal appearance. absent: Scleral icterus - Respiratory Exam Respiratory Exam: Decreased Breath Sounds, Rhonchi, Wheezes. absent: Clear to Ausculation Bilateral, Rales - Cardiovascular Exam Cardiovascular Exam: REGULAR RHYTHM, RRR, +S1, +S2. absent: Gallop, Rubs - GI/Abdominal Exam GI & Abdominal Exam: Soft, Normal Bowel Sounds. absent: Tenderness - Extremities Exam Extremities Exam: Normal Inspection. absent: Pedal Edema - Back Exam Back Exam: NORMAL INSPECTION - Psychiatric Exam Psychiatric exam: Normal Affect, Normal Mood - Skin Skin Exam: Normal Color. absent: Pallor Assessment and Plan - Assessment and Plan (Free Text) Assessment: 1) COPD exacerbation Atelectasis * 30 pack year smoking hx * Pulmonary consult, Dr Hernández * Encourage incentive spirometry * Blood culture 10/28 negative up to date * Sputum culture 10/28 (+) for ESBL E.Coli and MRSA * On contact isolation * Repeat Sputum culture 11/09/17 positive for yeast * Imaging: * CXR 10/24 - No acute findings. * Repeat CXR 10/27: Both lower lobe atelectasis. No lobar pneumonia. * Repeat CXR 10/30: Very small left pleural effusion. Otherwise unremarkable. * CT Chest (10/26/17): paraseptal emphysema in upper lobes, worse on the right and mild centrilobular emphysema in the lungs. No pneumothorax. No evidence of consolidation or pleural effusion * Meds: * Duoneb Q4 scheduled * Advair 250/50 1 puff Q12H * Solumedrol 40 mg IV Q12H -> Start 8 day prednisone taper 11/04/2017 * Tiotropium 1 INH QD * Promethazine w codeine 5ml PO Q4H PRN cough * Mucinex 600mg PO BID * Acetylcysteine 20% 4ml INH Q6H * IV Abx: Azithromycin 500 mg IV daily (started 10/25) and Ceftriaxone 1 gm IV daily (started 10/25) - discontinued due to sputum culture positive for ESBL E.Coli and MRSA. We gave Vanco 1g IV BID on 10/31 however we switched to Gentamycin as this has better coverage. * Started on Primaxin 500mg IVPB QID (started on 10/31/17) * Started on Gentamicin 80mg IVPB TID (started 11/01/17) - stopped 11/06/17 due to high genta trough * Vancomycin 1g IVP QD * Florastor 250mg PO BID 2) Leukocytosis -resolved * no bandemia * Procalcitonin 0.05 (L) * Flu NEGATIVE, Mycoplasma pneumoniae IgM NEGATIVE, Legionella NEGATIVE * Blood Culture 10/28 - negative up to date * Sputum Culture 10/28 - positive for ESBL E. Coli and MRSA * Started on Primaxin 500mg IVPB q6h (started on 10/31/17) * Started on Gentamicin 80mg IVPB TID (started 11/01/17) - stopped 11/06/17 due to high genta trough * Vancomycin 1g IVP QD * Florastor 250mg PO BID * Repeat Sputum culture 11/09/17 positive for yeast 3) History of Active Tuberculosis * 11/08: AFB x3, 2 have been recieved the 3rd is pending collection. First sputum collected is negative. * Per medical records, patient diagnosed with Active Tuberculosis in 2011, however further information not available. 3 consecutive AFB were negative in 2016. * 11/07 Mycobacterium sputum: No AFB seen * AFBs negative for acid fast bacilli x3 * Place on airborne isolation until AFBs are back 4) History of Diabetes (controlled) * Hemoglobin A1c 10/11/17 was 6.2 * Accuchecks AC and HS * Glipizde 5mg PO daily * ISS * Lantus 10 units subqHS 5) History of PE * IVC filter in place * Patient is not on any therapuetic anticoagulation secondary to history of retroperitoneal bleed * CT Chest (10/26/17): paraseptal emphysema in upper lobes, worse on the right and mild centrilobular emphysema in the lungs. No pneumothorax. No evidence of consolidation or pleural effusion. 6) History of Left Inguinal Hernia * Ultrasound evaluation confirms * Evaluated by surgery-->Will need outpatient follow up for repair 7) Tobacco Abuse * Quit 2 months ago, prior smoking since age 13, 30 pack year smoking hx * Nictone patch q daily 8) Hypertension * Norvasc 5mg PO QD 9) Prophylactic Measures * Protonix 40 PO daily * SCDs * Lovenox 40mg SC daily * Heart Healthy Diet with moderate consistent CHO * IVC filter * Physical therapy eval and treat * Occupational therapy eval and treat
--- NOTE | 2017-11-13 16:01 | CP.PCM.PN ---
Subjective - Date & Time of Evaluation Date of Evaluation: 11/13/17 Time of Evaluation: 03:20 - Subjective Subjective: dictated Objective - Vital Signs/Intake and Output Vital Signs (last 24 hours): Temp Pulse Resp BP Pulse Ox 98.2 F 86 20 127/72 98 11/13/17 08:08 11/13/17 08:08 11/13/17 08:08 11/13/17 08:08 11/13/17 08:08 Intake and Output: 11/13/17 11/13/17 06:59 18:59 Intake Total 750 680 Balance 750 680 - Medications Medications: Current Medications Acetylcysteine (Acetylcysteine 20%) 4 ml INH RQ4 [facility] Last Admin: 11/13/17 11:13 Dose: Not Given Albuterol/Ipratropium (Duoneb 3 Mg/0.5 Mg (3 Ml) Ud) 3 ml INH RQ4 [facility] Last Admin: 11/13/17 11:12 Dose: 3 ml Glipizide (Glucotrol Xl) 5 mg PO DAILY [facility] Last Admin: 11/13/17 09:54 Dose: 5 mg Guaifenesin (Mucinex La) 600 mg PO BID [facility] Last Admin: 11/13/17 09:54 Dose: 600 mg Imipenem/Cilastatin Sodium 500 (mg/ Sodium Chloride) 100 mls @ 100 mls/hr IVPB Q6H [facility] Last Admin: 11/13/17 13:29 Dose: 100 mls/hr Insulin Glargine (Lantus) 10 unit SC HS [facility] Last Admin: 11/12/17 22:20 Dose: 10 u Insulin Human Regular (Novolin R) 0 unit SC ACHS [facility] PRN Reason: Protocol Last Admin: 11/13/17 11:43 Dose: Not Given Lactic Acid (Lac-Hydrin 12% Lotion (225 G)) 1 gm EXT DAILY [facility] Last Admin: 11/13/17 09:53 Dose: 1 applic Lisinopril (Zestril) 5 mg PO DAILY [facility] Last Admin: 11/13/17 09:54 Dose: 5 mg Prednisone (Prednisone Tab) 20 mg PO DAILY [facility] Last Admin: 11/13/17 09:54 Dose: 20 mg Promethazine HCl/Codeine (Phenergan/Codeine Oral Syrup) 5 ml PO Q4 PRN PRN Reason: Cough Saccharomyces Boulardii (Florastor) 250 mg PO BID [facility] Last Admin: 11/13/17 09:54 Dose: 250 mg Fluticasone/Salmeterol (Advair Diskus 250/50) 1 puff INH RQ12 [facility] Last Admin: 11/13/17 11:12 Dose: 1 puff - Labs Labs: 11/13/17 07:51 11/13/17 07:51
--- NOTE | 2017-11-13 21:21 | PN ---
DATE: Patient says he is wearying. He is still coughing a lot. He does not feel too good, but his AFBs have been sent. Three AFBs that have been sent and last time I was thinking he had TB, but it seems that on PCR, it came out to be KEL and he is with pseudomonas at this time. He was started on Primaxin on 11/07/2017 and we will continue that. His numbers are looking better. White count is 9.4, but on exam, he is still wheezing, has occasional rhonchi. BUN is 27, creatinine 0.8. His AFB sputum showed yeast and AFB smear 1, I saw, is negative and 3 is negative. So, he probably can come off the isolation and if he is stable, he could be discharged. I do not have a medicine to send him with for pseudomonas treatment, but he probably should go with Bactrim for 7 days, whenever he is discharged. Jaylen Stewart MD
[2017-11-13] MEDS: (Lantus) Insulin Glargine, Recombinant SC SCH (21:50)
[2017-11-14] MEDS: Albuterol-Ipratrop 3 mg / 0.5 (3 ml) UD INH SCH ×5 (00:27→19:34)
[2017-11-14] MEDS: Acetylcysteine 20% Inhal Soln (4ml) INH SCH ×4 (00:27→19:33)
[2017-11-14 07:34] LABS: BASO % 0.5 % (0.0-2.0); EOS # 0.1 K/uL (0.0-0.7); EOS % 1.3 % (0.0-4.0); HEMOGLOBIN 12.1 g/dL (12.0-18.0); LYMPH # 2.7 K/uL (1.0-4.3); MEAN CELL VOLUME 86.1 fL (80.0-94.0); MEAN CORPUSCULAR HEMOGLOBIN 28.6 pg (27.0-31.0); MEAN CORPUSCULAR HGB CONC 33.2 g/dL (33.0-37.0); MEAN PLATELET VOLUME 8.5 fL (7.2-11.7); MONO # 0.9 K/uL (0.0-0.8); MONO % 11.4 % (0.0-10.0); NEUT # 4.4 K/uL (1.8-7.0); NEUT % 53.8 % (50.0-75.0); RBC 4.22 Mil/uL (4.40-5.90); RED CELL DISTRIBUTION WIDTH 16.3 % (11.5-14.5); WHITE BLOOD COUNT 8.2 K/uL (4.8-10.8)
[2017-11-14 07:39] LABS: ALB/GLOB RATIO 1.2 (1.0-2.1); ALBUMIN 3.4 g/dL (3.5-5.0); ALT/SGPT 21 U/L (21-72); AST/SGOT 22 U/L (17-59); BLOOD UREA NITROGEN 30 mg/dL (9-20); CALCIUM 8.4 mg/dl (8.6-10.4); GFR AFRICAN-AMERICAN > 60; GFR NON-AFRICAN AMERICAN > 60
[2017-11-14] MEDS: (Novolin R) Insulin Human Regular 100 units/ml vial SC SCH ×4 (08:21→21:52)
[2017-11-14] MEDS: GlipiZIDE 5 mg SR Tab PO SCH (09:25)
[2017-11-14] MEDS: Saccharomyces Boulardi 250 mg Cap PO SCH ×2 (09:25→17:32)
[2017-11-14] MEDS: guaiFENesin 600 mg ER Tab PO SCH ×2 (09:28→17:32)
[2017-11-14] MEDS: Ammonium Lactate 12% Lotion (225 g) EXT SCH (09:29)
[2017-11-14] MEDS: Fluticasone-Salmeterol 250-50mcg Diskus INH SCH ×2 (11:04→19:33)
--- NOTE | 2017-11-14 16:16 | CP.PCM.PN ---
Subjective - Date & Time of Evaluation Date of Evaluation: 11/14/17 Time of Evaluation: 15:59 - Subjective Subjective: PGY-[address] Hernández. No acute events noted overnight. Patient reports cough and sputum production that is overall improved since admission. Micro lab has received all AFBs and sputum samples and AFBs are all negative. He is no longer on isolation. He denied cp, abd pain, f/c, n/v/c/d. Objective - Vital Signs/Intake and Output Vital Signs (last 24 hours): Temp Pulse Resp BP Pulse Ox 98.1 F 90 20 133/71 97 11/14/17 08:00 11/14/17 08:00 11/14/17 08:00 11/14/17 08:00 11/14/17 08:00 Intake and Output: 11/14/17 11/14/17 06:59 18:59 Intake Total 500 Balance 500 - Medications Medications: Current Medications Acetylcysteine (Acetylcysteine 20%) 4 ml INH RQ4 [facility] Last Admin: 11/14/17 07:15 Dose: 4 ml Albuterol/Ipratropium (Duoneb 3 Mg/0.5 Mg (3 Ml) Ud) 3 ml INH RQ4 [facility] Last Admin: 11/14/17 11:06 Dose: 3 ml Glipizide (Glucotrol Xl) 5 mg PO DAILY [facility] Last Admin: 11/14/17 09:25 Dose: 5 mg Guaifenesin (Mucinex La) 600 mg PO BID [facility] Last Admin: 11/14/17 09:28 Dose: 600 mg Imipenem/Cilastatin Sodium 500 (mg/ Sodium Chloride) 100 mls @ 100 mls/hr IVPB Q6H [facility] Last Admin: 11/14/17 14:30 Dose: 100 mls/hr Insulin Glargine (Lantus) 10 unit SC HS [facility] Last Admin: 11/13/17 21:50 Dose: 10 units Insulin Human Regular (Novolin R) 0 unit SC ACHS [facility] PRN Reason: Protocol Last Admin: 11/14/17 12:01 Dose: Not Given Lactic Acid (Lac-Hydrin 12% Lotion (225 G)) 1 gm EXT DAILY [facility] Last Admin: 11/14/17 09:29 Dose: 1 applic Lisinopril (Zestril) 5 mg PO DAILY [facility] Last Admin: 11/14/17 09:25 Dose: 5 mg Prednisone (Prednisone Tab) 20 mg PO DAILY [facility] Last Admin: 11/14/17 09:25 Dose: 20 mg Promethazine HCl/Codeine (Phenergan/Codeine Oral Syrup) 5 ml PO Q4 PRN PRN Reason: Cough Saccharomyces Boulardii (Florastor) 250 mg PO BID [facility] Last Admin: 11/14/17 09:25 Dose: 250 mg Fluticasone/Salmeterol (Advair Diskus 250/50) 1 puff INH RQ12 [facility] Last Admin: 11/14/17 11:04 Dose: Not Given - Labs Labs: 11/14/17 06:55 11/14/17 06:55 - Additional Findings Additional findings: - Constitutional Appears: Non-toxic, No Acute Distress - Eye Exam Eye Exam: Normal appearance. absent: Scleral icterus - Respiratory Exam Respiratory Exam: Decreased Breath Sounds, Rhonchi, Wheezes. absent: Clear to Ausculation Bilateral, Rales - Cardiovascular Exam Cardiovascular Exam: REGULAR RHYTHM, RRR, +S1, +S2. absent: Gallop, Rubs - GI/Abdominal Exam GI & Abdominal Exam: Soft, Normal Bowel Sounds. absent: Tenderness - Extremities Exam Extremities Exam: Normal Inspection. absent: Pedal Edema - Back Exam Back Exam: NORMAL INSPECTION - Psychiatric Exam Psychiatric exam: Normal Affect, Normal Mood - Skin Skin Exam: Normal Color. absent: Pallor Assessment and Plan - Assessment and Plan (Free Text) Assessment: 1) COPD exacerbation Atelectasis * 30 pack year smoking hx * Pulmonary consult, Dr Hernández * Encourage incentive spirometry * Blood culture 10/28 negative up to date * Sputum culture 10/28 (+) for ESBL E.Coli and MRSA * Discontinued contact/airborne isolatin 11/14/17 due to negative AFBs x3 * Repeat Sputum culture 11/09/17 positive for yeast * Imaging: * CXR 10/24 - No acute findings. * Repeat CXR 10/27: Both lower lobe atelectasis. No lobar pneumonia. * Repeat CXR 10/30: Very small left pleural effusion. Otherwise unremarkable. * CT Chest (10/26/17): paraseptal emphysema in upper lobes, worse on the right and mild centrilobular emphysema in the lungs. No pneumothorax. No evidence of consolidation or pleural effusion * Meds: * Duoneb Q4 scheduled * Advair 250/50 1 puff Q12H * Solumedrol 40 mg IV Q12H -> Start 8 day prednisone taper 11/04/2017 * Tiotropium 1 INH QD * Promethazine w codeine 5ml PO Q4H PRN cough * Mucinex 600mg PO BID * Acetylcysteine 20% 4ml INH Q6H * IV Abx: Azithromycin 500 mg IV daily (started 10/25) and Ceftriaxone 1 gm IV daily (started 10/25) - discontinued due to sputum culture positive for ESBL E.Coli and MRSA. We gave Vanco 1g IV BID on 10/31 however we switched to Gentamycin as this has better coverage. * Started on Primaxin 500mg IVPB QID (started on 10/31/17) * Started on Gentamicin 80mg IVPB TID (started 11/01/17) - stopped 11/06/17 due to high genta trough * Vancomycin 1g IVP QD * Florastor 250mg PO BID 2) Leukocytosis -resolved * no bandemia * Procalcitonin 0.05 (L) * Flu NEGATIVE, Mycoplasma pneumoniae IgM NEGATIVE, Legionella NEGATIVE * Blood Culture 10/28 - negative up to date * Sputum Culture 10/28 - positive for ESBL E. Coli and MRSA * Started on Primaxin 500mg IVPB q6h (started on 10/31/17) * Started on Gentamicin 80mg IVPB TID (started 11/01/17) - stopped 11/06/17 due to high genta trough * Vancomycin 1g IVP QD * Florastor 250mg PO BID * Repeat Sputum culture 11/09/17 positive for yeast 3) History of Active Tuberculosis * ID consulted, Dr Stewart * Upon discharge - Ok to send home on Bactrim 160mg PO QD for 7 days * Per medical records, patient diagnosed with Active Tuberculosis in 2011, however further information not available. 3 consecutive AFB were negative in 2016. 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 No pneumothorax. No evidence of consolidation or pleural effusion. 6) History of Left Inguinal Hernia * Ultrasound evaluation confirms * Evaluated by surgery-->Will need outpatient follow up for repair 7) Tobacco Abuse * Quit 2 months ago, prior smoking since age 13, 30 pack year smoking hx * Nictone patch q daily 8) Hypertension * Norvasc 5mg PO QD 9) Prophylactic Measures * Protonix 40 PO daily * SCDs * Lovenox 40mg SC daily * Heart Healthy Diet with moderate consistent CHO * IVC filter * Physical therapy eval and treat * Occupational therapy eval and treat DISPOSITION: Will need med to beds for ideally all his home meds (under ambulatory order) - at the very least his Ventolin and Advair and abx.
[2017-11-14] MEDS: (Lantus) Insulin Glargine, Recombinant SC SCH (21:52)
[2017-11-15] MEDS: Acetylcysteine 20% Inhal Soln (4ml) INH SCH ×7 (03:54→23:47)
[2017-11-15] MEDS: Albuterol-Ipratrop 3 mg / 0.5 (3 ml) UD INH SCH ×7 (03:54→23:47)
--- NOTE | 2017-11-15 06:12 | CP.PCM.PN ---
<Branden Aceves - Last Filed: 11/15/17 06:11> Subjective - Date & Time of Evaluation Date of Evaluation: 11/15/17 Time of Evaluation: 06:11 - Subjective Subjective: No acute events noted overnight. Patient reports cough and sputum production that is overall improved since admission. Micro lab has received all AFBs and sputum samples and AFBs are all negative. He is no longer on isolation. He denied cp, abd pain, f/c, n/v/c/d. Objective - Vital Signs/Intake and Output Vital Signs (last 24 hours): Temp Pulse Resp BP Pulse Ox 97.6 F 75 20 106/46 L 96 11/15/17 00:00 11/15/17 00:00 11/15/17 00:00 11/15/17 00:00 11/15/17 00:00 Intake and Output: 11/14/17 11/15/17 18:59 06:59 Intake Total 300 Balance 300 - Medications Medications: Current Medications Acetylcysteine (Acetylcysteine 20%) 4 ml INH RQ4 [facility] Last Admin: 11/15/17 03:54 Dose: 4 ml Albuterol/Ipratropium (Duoneb 3 Mg/0.5 Mg (3 Ml) Ud) 3 ml INH RQ4 [facility] Last Admin: 11/15/17 03:54 Dose: 3 ml Glipizide (Glucotrol Xl) 5 mg PO DAILY [facility] Last Admin: 11/14/17 09:25 Dose: 5 mg Guaifenesin (Mucinex La) 600 mg PO BID [facility] Last Admin: 11/14/17 17:32 Dose: 600 mg Imipenem/Cilastatin Sodium 500 (mg/ Sodium Chloride) 100 mls @ 100 mls/hr IVPB Q6H [facility] Last Admin: 11/15/17 02:20 Dose: 100 mls/hr Insulin Glargine (Lantus) 10 unit SC HS [facility] Last Admin: 11/14/17 21:52 Dose: 10 units Insulin Human Regular (Novolin R) 0 unit SC ACHS [facility] PRN Reason: Protocol Last Admin: 11/14/17 21:52 Dose: Not Given Lactic Acid (Lac-Hydrin 12% Lotion (225 G)) 1 gm EXT DAILY [facility] Last Admin: 11/14/17 09:29 Dose: 1 applic Lisinopril (Zestril) 5 mg PO DAILY [facility] Last Admin: 11/14/17 09:25 Dose: 5 mg Prednisone (Prednisone Tab) 20 mg PO DAILY [facility] Last Admin: 11/14/17 09:25 Dose: 20 mg Promethazine HCl/Codeine (Phenergan/Codeine Oral Syrup) 5 ml PO Q4 PRN PRN Reason: Cough Saccharomyces Boulardii (Florastor) 250 mg PO BID [facility] Last Admin: 11/14/17 17:32 Dose: 250 mg Fluticasone/Salmeterol (Advair Diskus 250/50) 1 puff INH RQ12 [facility] Last Admin: 11/14/17 19:33 Dose: 1 puff - Labs Labs: 11/14/17 06:55 11/14/17 06:55 - Additional Findings Additional findings: - Constitutional Appears: Non-toxic, No Acute Distress - Eye Exam Eye Exam: Normal appearance. absent: Scleral icterus - Respiratory Exam Respiratory Exam: Decreased Breath Sounds, Rhonchi, Wheezes. absent: Clear to Ausculation Bilateral, Rales - Cardiovascular Exam Cardiovascular Exam: REGULAR RHYTHM, RRR, +S1, +S2. absent: Gallop, Rubs - GI/Abdominal Exam GI & Abdominal Exam: Soft, Normal Bowel Sounds. absent: Tenderness - Extremities Exam Extremities Exam: Normal Inspection. absent: Pedal Edema - Back Exam Back Exam: NORMAL INSPECTION - Psychiatric Exam Psychiatric exam: Normal Affect, Normal Mood - Skin Skin Exam: Normal Color. absent: Pallor Assessment and Plan - Assessment and Plan (Free Text) Plan: 1) COPD exacerbation Atelectasis * 30 pack year smoking hx * Pulmonary consult, Dr Hernández * Encourage incentive spirometry * Blood culture 10/28 negative up to date * Sputum culture 10/28 (+) for ESBL E.Coli and MRSA * Discontinued contact/airborne isolatin 11/14/17 due to negative AFBs x3 * Repeat Sputum culture 11/09/17 positive for yeast * Imaging: * CXR 10/24 - No acute findings. * Repeat CXR 10/27: Both lower lobe atelectasis. No lobar pneumonia. * Repeat CXR 10/30: Very small left pleural effusion. Otherwise unremarkable. * CT Chest (10/26/17): paraseptal emphysema in upper lobes, worse on the right and mild centrilobular emphysema in the lungs. No pneumothorax. No evidence of consolidation or pleural effusion * Meds: * Duoneb Q4 scheduled * Advair 250/50 1 puff Q12H * Solumedrol 40 mg IV Q12H -> Start 8 day prednisone taper 11/04/2017 * Tiotropium 1 INH QD * Promethazine w codeine 5ml PO Q4H PRN cough * Mucinex 600mg PO BID * Acetylcysteine 20% 4ml INH Q6H * IV Abx: Azithromycin 500 mg IV daily (started 10/25) and Ceftriaxone 1 gm IV daily (started 10/25) - discontinued due to sputum culture positive for ESBL E.Coli and MRSA. We gave Vanco 1g IV BID on 10/31 however we switched to Gentamycin as this has better coverage. * Started on Primaxin 500mg IVPB QID (started on 10/31/17) * Started on Gentamicin 80mg IVPB TID (started 11/01/17) - stopped 11/06/17 due to high genta trough * Vancomycin 1g IVP QD * Florastor 250mg PO BID 2) Leukocytosis -resolved * no bandemia * Procalcitonin 0.05 (L) * Flu NEGATIVE, Mycoplasma pneumoniae IgM NEGATIVE, Legionella NEGATIVE * Blood Culture 10/28 - negative up to date * Sputum Culture 10/28 - positive for ESBL E. Coli and MRSA * Started on Primaxin 500mg IVPB q6h (started on 10/31/17) * Started on Gentamicin 80mg IVPB TID (started 11/01/17) - stopped 11/06/17 due to high genta trough * Vancomycin 1g IVP QD * Florastor 250mg PO BID * Repeat Sputum culture 11/09/17 positive for yeast 3) History of Active Tuberculosis * ID consulted, Dr Stewart * Upon discharge - Ok to send home on Bactrim 160mg PO QD for 7 days * Per medical records, patient diagnosed with Active Tuberculosis in 2011, however further information not available. 3 consecutive AFB were negative in 2016. 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 No pneumothorax. No evidence of consolidation or pleural effusion. 6) History of Left Inguinal Hernia * Ultrasound evaluation confirms * Evaluated by surgery-->Will need outpatient follow up for repair 7) Tobacco Abuse * Quit 2 months ago, prior smoking since age 13, 30 pack year smoking hx * Nictone patch q daily 8) Hypertension * Norvasc 5mg PO QD 9) Prophylactic Measures * Protonix 40 PO daily * SCDs * Lovenox 40mg SC daily * Heart Healthy Diet with moderate consistent CHO * IVC filter * Physical therapy eval and treat * Occupational therapy eval and treat DISPOSITION: Will need med to beds for ideally all his home meds (under ambulatory order) - at the very least his Ventolin and Advair and abx. Will likely go home today. <Mariaelena Adames V - Last Filed: 11/15/17 09:27> Objective - Vital Signs/Intake and Output Vital Signs (last 24 hours): Temp Pulse Resp BP Pulse Ox 97.6 F 75 20 106/46 L 96 11/15/17 00:00 11/15/17 00:00 11/15/17 00:00 11/15/17 00:00 11/15/17 00:00 Intake and Output: 11/15/17 11/15/17 06:59 18:59 Intake Total 300 Balance 300 - Medications Medications: Current Medications Acetylcysteine (Acetylcysteine 20%) 4 ml INH RQ4 [facility] Last Admin: 11/15/17 03:54 Dose: 4 ml Albuterol/Ipratropium (Duoneb 3 Mg/0.5 Mg (3 Ml) Ud) 3 ml INH RQ4 [facility] Last Admin: 11/15/17 03:54 Dose: 3 ml Glipizide (Glucotrol Xl) 5 mg PO DAILY [facility] Last Admin: 11/14/17 09:25 Dose: 5 mg Guaifenesin (Mucinex La) 600 mg PO BID [facility] Last Admin: 11/14/17 17:32 Dose: 600 mg Imipenem/Cilastatin Sodium 500 (mg/ Sodium Chloride) 100 mls @ 100 mls/hr IVPB Q6H [facility] Last Admin: 11/15/17 08:22 Dose: 100 mls/hr Insulin Glargine (Lantus) 10 unit SC HS [facility] Last Admin: 11/14/17 21:52 Dose: 10 units Insulin Human Regular (Novolin R) 0 unit SC ACHS [facility] PRN Reason: Protocol Last Admin: 11/15/17 07:29 Dose: Not Given Lactic Acid (Lac-Hydrin 12% Lotion (225 G)) 1 gm EXT DAILY [facility] Last Admin: 11/14/17 09:29 Dose: 1 applic Lisinopril (Zestril) 5 mg PO DAILY [facility] Last Admin: 11/14/17 09:25 Dose: 5 mg Prednisone (Prednisone Tab) 20 mg PO DAILY [facility] Last Admin: 11/14/17 09:25 Dose: 20 mg Promethazine HCl/Codeine (Phenergan/Codeine Oral Syrup) 5 ml PO Q4 PRN PRN Reason: Cough Saccharomyces Boulardii (Florastor) 250 mg PO BID [facility] Last Admin: 11/14/17 17:32 Dose: 250 mg Fluticasone/Salmeterol (Advair Diskus 250/50) 1 puff INH RQ12 [facility] Last Admin: 11/14/17 19:33 Dose: 1 puff - Labs Labs: 11/15/17 07:04 11/15/17 07:04 Attending/Attestation - Attestation I have personally seen and examined this patient.: Yes I have fully participated in the care of the patient.: Yes I have reviewed all pertinent clinical information, including history, physical exam and plan: Yes Notes (Text): Patient seen, examined, and case discussed with day-time resident. Patient eating breakfast at bedside. Patient recently recently breathing treatment prior to my arrival. Patient reports his plan upon discharge is go to his friend's place who lives [facility]. Plan is for Friday discharge. Assessment/Plan updated in the note below: Medications for discharge: 1) Ventolin HFA 2) Advair 250/50 1inhaler INH Q12H 3) Bactrim 7 day course 4) Bacid 1 tab PO daily for 7 days 5) Glipizde 5mg PO daily 1) COPD exacerbation--Stable Atelectasis * 30 pack year smoking hx * Pulmonary consult, Dr Hernández * Encourage incentive spirometry * Blood culture 10/28 negative up to date * Sputum culture 10/28 (+) for ESBL E.Coli and MRSA * Repeat Sputum culture 11/09/17 positive for yeast * Discontinued contact/airborne isolation 11/14/17 due to negative AFBs x3 (11/07; 11/09; 11/11) * Imaging: * CXR 10/24 - No acute findings. * Repeat CXR 10/27: Both lower lobe atelectasis. No lobar pneumonia. * Repeat CXR 10/30: Very small left pleural effusion. Otherwise unremarkable. * CT Chest (10/26/17): paraseptal emphysema in upper lobes, worse on the right and mild centrilobular emphysema in the lungs. No pneumothorax. No evidence of consolidation or pleural effusion * Meds: * Duoneb Q4 scheduled * Advair 250/50 1 puff Q12H * Solumedrol 40 mg IV Q12H -> Start 8 day prednisone taper 11/04-08/2018 * Tiotropium 1 INH QD * Promethazine w codeine 5ml PO Q4H PRN cough * Mucinex 600mg PO BID * Acetylcysteine 20% 4ml INH Q6H 2) Pneumonia * Infectious Disease (Dr. Stewart) on case help appreciated * IV Abx: Azithromycin 500 mg IV daily (started 10/25) and Ceftriaxone 1 gm IV daily (started 10/25) - discontinued due to sputum culture positive for ESBL E.Coli and MRSA. We gave Vanco 1g IV BID on 10/31 however we switched to Gentamycin as this has better coverage. * Started on Primaxin 500mg IVPB QID (started on 10/31/17) * Started on Gentamicin 80mg IVPB TID (started 11/01/17) - stopped 11/06/17 due to high genta trough * Florastor 250mg PO BID * ID recommends: 7 day course of Bactrim upon discharge 3) Leukocytosis -resolved * no bandemia * Procalcitonin 0.05 (L) * Flu NEGATIVE, Mycoplasma pneumoniae IgM NEGATIVE, Legionella NEGATIVE * Blood Culture 10/28 - negative up to date * Sputum Culture 10/28 - positive for ESBL E. Coli and MRSA * Started on Primaxin 500mg IVPB q6h (started on 10/31/17) * Started on Gentamicin 80mg IVPB TID (started 11/01/17) - stopped 11/06/17 due to high genta trough * Florastor 250mg PO BID * Repeat Sputum culture 11/09/17 positive for yeast * ID recommends: 7 day course of Bactrim upon discharge * Steroids are completed 4) Prior History of Tuberculosis * ID consulted, Dr Stewart * Upon discharge - Ok to send home on Bactrim 160mg PO QD for 7 days * Per medical records, patient diagnosed with Active Tuberculosis in 2011, however further information not available. 3 consecutive AFB were negative in 2016. 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 No pneumothorax. No evidence of consolidation or pleural effusion. 7) History of Left Inguinal Hernia * Ultrasound evaluation confirms * Evaluated by surgery-->Will need outpatient follow up for repair 8) Tobacco Abuse * Quit 2 months ago, prior smoking since age 13, 30 pack year smoking hx * Nictone patch q daily 9) Hypertension * Lisinopril 5mg PO daily 10) Prophylactic Measures * Protonix 40 PO daily * SCDs * Lovenox 40mg SC daily * Heart Healthy Diet with moderate consistent CHO * IVC filter * Physical therapy eval and treat * Occupational therapy eval and treat DISPOSITION: Will need med to beds for ideally all his home meds (under ambulatory order) - at the very least his Ventolin and Advair and abx.
[2017-11-15 07:13] LABS: BASO % 0.4 % (0.0-2.0); EOS # 0.1 K/uL (0.0-0.7); EOS % 1.1 % (0.0-4.0); HEMOGLOBIN 12.2 g/dL (12.0-18.0); LYMPH # 2.6 K/uL (1.0-4.3); LYMPH % 31.6 % (20.0-40.0); MEAN CELL VOLUME 85.7 fL (80.0-94.0); MEAN CORPUSCULAR HEMOGLOBIN 28.7 pg (27.0-31.0); MEAN CORPUSCULAR HGB CONC 33.5 g/dL (33.0-37.0); MONO % 12.3 % (0.0-10.0); NEUT # 4.6 K/uL (1.8-7.0); NEUT % 54.6 % (50.0-75.0); NRBC % 0.2 % (0.0-2.0); RBC 4.25 Mil/uL (4.40-5.90); RED CELL DISTRIBUTION WIDTH 16.1 % (11.5-14.5); WHITE BLOOD COUNT 8.3 K/uL (4.8-10.8)
[2017-11-15] MEDS: (Novolin R) Insulin Human Regular 100 units/ml vial SC SCH ×4 (07:29→21:33)
[2017-11-15 07:31] LABS: ALBUMIN 3.3 g/dL (3.5-5.0); ALT/SGPT 22 U/L (21-72); AST/SGOT 19 U/L (17-59); BLOOD UREA NITROGEN 31 mg/dL (9-20); CALCIUM 8.4 mg/dl (8.6-10.4); GFR AFRICAN-AMERICAN > 60; GFR NON-AFRICAN AMERICAN > 60
[2017-11-15 07:57] LABS: ALB/GLOB RATIO 1.2 (1.0-2.1)
[2017-11-15] MEDS: Fluticasone-Salmeterol 250-50mcg Diskus INH SCH ×2 (08:00→20:10)
[2017-11-15] MEDS: Saccharomyces Boulardi 250 mg Cap PO SCH ×2 (09:56→17:46)
[2017-11-15] MEDS: GlipiZIDE 5 mg SR Tab PO SCH (09:56)
[2017-11-15] MEDS: guaiFENesin 600 mg ER Tab PO SCH ×2 (09:56→17:49)
[2017-11-15] MEDS: Ammonium Lactate 12% Lotion (225 g) EXT SCH (14:45)
[2017-11-15] MEDS: (Lantus) Insulin Glargine, Recombinant SC SCH (22:42)
--- NOTE | 2017-11-16 03:25 | CP.PCM.PN ---
<Branden Aceves - Last Filed: 11/16/17 03:22> Subjective - Date & Time of Evaluation Date of Evaluation: 11/16/17 Time of Evaluation: 03:22 - Subjective Subjective: Patient has been seen and examined. No overnight events. Patient has no new complaints at this time. His cough is controlled with medications. Objective - Vital Signs/Intake and Output Vital Signs (last 24 hours): Temp Pulse Resp BP Pulse Ox 97.7 F 70 20 121/63 100 11/15/17 23:15 11/15/17 23:15 11/15/17 23:15 11/15/17 23:15 11/15/17 23:15 Intake and Output: 11/15/17 11/16/17 18:59 06:59 Intake Total 400 Output Total 600 Balance -200 - Medications Medications: Current Medications Acetylcysteine (Acetylcysteine 20%) 4 ml INH RQ4 [facility] Last Admin: 11/15/17 23:47 Dose: 4 ml Albuterol/Ipratropium (Duoneb 3 Mg/0.5 Mg (3 Ml) Ud) 3 ml INH RQ4 [facility] Last Admin: 11/15/17 23:47 Dose: 3 ml Glipizide (Glucotrol Xl) 5 mg PO DAILY [facility] Last Admin: 11/15/17 09:56 Dose: 5 mg Guaifenesin (Mucinex La) 600 mg PO BID [facility] Last Admin: 11/15/17 17:49 Dose: 600 mg Imipenem/Cilastatin Sodium 500 (mg/ Sodium Chloride) 100 mls @ 100 mls/hr IVPB Q6H [facility] Last Admin: 11/16/17 02:36 Dose: 100 mls/hr Insulin Glargine (Lantus) 10 unit SC HS [facility] Last Admin: 11/15/17 22:42 Dose: 10 units Insulin Human Regular (Novolin R) 0 unit SC ACHS [facility] PRN Reason: Protocol Last Admin: 11/15/17 21:33 Dose: Not Given Lactic Acid (Lac-Hydrin 12% Lotion (225 G)) 1 gm EXT DAILY [facility] Last Admin: 11/15/17 14:45 Dose: 1 applic Lisinopril (Zestril) 5 mg PO DAILY [facility] Last Admin: 11/15/17 09:56 Dose: 5 mg Promethazine HCl/Codeine (Phenergan/Codeine Oral Syrup) 5 ml PO Q4 PRN PRN Reason: Cough Saccharomyces Boulardii (Florastor) 250 mg PO BID [facility] Last Admin: 11/15/17 17:46 Dose: 250 mg Fluticasone/Salmeterol (Advair Diskus 250/50) 1 puff INH RQ12 [facility] Last Admin: 11/15/17 20:10 Dose: 1 puff - Labs Labs: 11/15/17 07:04 11/15/17 07:04 - Additional Findings Additional findings: - Constitutional Appears: Non-toxic, No Acute Distress - Eye Exam Eye Exam: Normal appearance. absent: Scleral icterus - Respiratory Exam Respiratory Exam: Decreased Breath Sounds, Rhonchi, Wheezes. absent: Clear to Ausculation Bilateral, Rales - Cardiovascular Exam Cardiovascular Exam: REGULAR RHYTHM, RRR, +S1, +S2. absent: Gallop, Rubs - GI/Abdominal Exam GI & Abdominal Exam: Soft, Normal Bowel Sounds. absent: Tenderness - Extremities Exam Extremities Exam: Normal Inspection. absent: Pedal Edema - Back Exam Back Exam: NORMAL INSPECTION - Psychiatric Exam Psychiatric exam: Normal Affect, Normal Mood - Skin Assessment and Plan - Assessment and Plan (Free Text) Plan: 1) COPD exacerbation Atelectasis * 30 pack year smoking hx * Pulmonary consult, Dr Hernández * Encourage incentive spirometry * Blood culture 10/28 negative up to date * Sputum culture 10/28 (+) for ESBL E.Coli and MRSA * Discontinued contact/airborne isolatin 11/14/17 due to negative AFBs x3 * Repeat Sputum culture 11/09/17 positive for yeast * Imaging: * CXR 10/24 - No acute findings. * Repeat CXR 10/27: Both lower lobe atelectasis. No lobar pneumonia. * Repeat CXR 10/30: Very small left pleural effusion. Otherwise unremarkable. * CT Chest (10/26/17): paraseptal emphysema in upper lobes, worse on the right and mild centrilobular emphysema in the lungs. No pneumothorax. No evidence of consolidation or pleural effusion * Meds: * Duoneb Q4 scheduled * Advair 250/50 1 puff Q12H * Solumedrol 40 mg IV Q12H -> Start 8 day prednisone taper 11/04/2017 * Tiotropium 1 INH QD * Promethazine w codeine 5ml PO Q4H PRN cough * Mucinex 600mg PO BID * Acetylcysteine 20% 4ml INH Q6H * IV Abx: Azithromycin 500 mg IV daily (started 10/25) and Ceftriaxone 1 gm IV daily (started 10/25) - discontinued due to sputum culture positive for ESBL E.Coli and MRSA. We gave Vanco 1g IV BID on 10/31 however we switched to Gentamycin as this has better coverage. * Started on Primaxin 500mg IVPB QID (started on 10/31/17) * Started on Gentamicin 80mg IVPB TID (started 11/01/17) - stopped 11/06/17 due to high genta trough * Vancomycin 1g IVP QD * Florastor 250mg PO BID 2) Leukocytosis -resolved * no bandemia * Procalcitonin 0.05 (L) * Flu NEGATIVE, Mycoplasma pneumoniae IgM NEGATIVE, Legionella NEGATIVE * Blood Culture 10/28 - negative up to date * Sputum Culture 10/28 - positive for ESBL E. Coli and MRSA * Started on Primaxin 500mg IVPB q6h (started on 10/31/17) * Started on Gentamicin 80mg IVPB TID (started 11/01/17) - stopped 11/06/17 due to high genta trough * Vancomycin 1g IVP QD * Florastor 250mg PO BID * Repeat Sputum culture 11/09/17 positive for yeast 3) History of Active Tuberculosis * ID consulted, Dr Stewart * Upon discharge - Ok to send home on Bactrim 160mg PO QD for 7 days * Per medical records, patient diagnosed with Active Tuberculosis in 2011, however further information not available. 3 consecutive AFB were negative in 2016. 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 No pneumothorax. No evidence of consolidation or pleural effusion. 6) History of Left Inguinal Hernia * Ultrasound evaluation confirms * Evaluated by surgery-->Will need outpatient follow up for repair 7) Tobacco Abuse * Quit 2 months ago, prior smoking since age 13, 30 pack year smoking hx * Nictone patch q daily 8) Hypertension * Norvasc 5mg PO QD 9) Prophylactic Measures * Protonix 40 PO daily * SCDs * Lovenox 40mg SC daily * Heart Healthy Diet with moderate consistent CHO * IVC filter * Physical therapy eval and treat * Occupational therapy eval and treat DISPOSITION: Will need med to beds for ideally all his home meds (under ambulatory order) - at the very least his Ventolin and Advair and abx. <Mansi Baird - Last Filed: 11/16/17 17:49> Objective - Vital Signs/Intake and Output Vital Signs (last 24 hours): Temp Pulse Resp BP Pulse Ox 97.4 F L 86 20 132/68 96 11/16/17 15:00 11/16/17 15:00 11/16/17 15:00 11/16/17 15:00 11/16/17 15:00 Intake and Output: 11/16/17 11/16/17 06:59 18:59 Intake Total 700 Output Total 1000 Balance -300 - Medications Medications: Current Medications Acetylcysteine (Acetylcysteine 20%) 4 ml INH RQ4 [facility] Last Admin: 11/16/17 16:20 Dose: 4 ml Albuterol/Ipratropium (Duoneb 3 Mg/0.5 Mg (3 Ml) Ud) 3 ml INH RQ4 [facility] Last Admin: 11/16/17 16:20 Dose: 3 ml Glipizide (Glucotrol Xl) 5 mg PO DAILY [facility] Last Admin: 11/16/17 10:31 Dose: 5 mg Guaifenesin (Mucinex La) 600 mg PO BID [facility] Last Admin: 11/16/17 10:32 Dose: 600 mg Imipenem/Cilastatin Sodium 500 (mg/ Sodium Chloride) 100 mls @ 100 mls/hr IVPB Q6H [facility] Last Admin: 11/16/17 14:54 Dose: 100 mls/hr Insulin Glargine (Lantus) 10 unit SC HS [facility] Last Admin: 11/15/17 22:42 Dose: 10 units Insulin Human Regular (Novolin R) 0 unit SC ACHS [facility] PRN Reason: Protocol Last Admin: 11/16/17 12:09 Dose: Not Given Lactic Acid (Lac-Hydrin 12% Lotion (225 G)) 1 gm EXT DAILY [facility] Last Admin: 11/16/17 10:32 Dose: 1 applic Lisinopril (Zestril) 5 mg PO DAILY [facility] Last Admin: 11/16/17 10:31 Dose: 5 mg Promethazine HCl/Codeine (Phenergan/Codeine Oral Syrup) 5 ml PO Q4 PRN PRN Reason: Cough Saccharomyces Boulardii (Florastor) 250 mg PO BID [facility] Last Admin: 11/16/17 10:32 Dose: 250 mg Fluticasone/Salmeterol (Advair Diskus 250/50) 1 puff INH RQ12 [facility] Last Admin: 11/15/17 20:10 Dose: 1 puff - Labs Labs: 11/16/17 08:27 11/16/17 08:27 Attending/Attestation - Attestation I have personally seen and examined this patient.: Yes I have fully participated in the care of the patient.: Yes I have reviewed all pertinent clinical information, including history, physical exam and plan: Yes
[2017-11-16] MEDS: Acetylcysteine 20% Inhal Soln (4ml) INH SCH ×5 (03:54→19:37)
[2017-11-16] MEDS: Albuterol-Ipratrop 3 mg / 0.5 (3 ml) UD INH SCH ×4 (07:25→19:37)
[2017-11-16] MEDS: (Novolin R) Insulin Human Regular 100 units/ml vial SC SCH ×3 (07:39→16:30)
[2017-11-16 08:45] LABS: BASO % 0.4 % (0.0-2.0); EOS # 0.2 K/uL (0.0-0.7); EOS % 1.6 % (0.0-4.0); HEMOGLOBIN 12.7 g/dL (12.0-18.0); LYMPH # 2.9 K/uL (1.0-4.3); LYMPH % 29.7 % (20.0-40.0); MEAN CORPUSCULAR HEMOGLOBIN 28.4 pg (27.0-31.0); MEAN CORPUSCULAR HGB CONC 33.4 g/dL (33.0-37.0); MEAN PLATELET VOLUME 8.3 fL (7.2-11.7); MONO # 1.2 K/uL (0.0-0.8); MONO % 12.3 % (0.0-10.0); NEUT # 5.4 K/uL (1.8-7.0); RBC 4.46 Mil/uL (4.40-5.90); RED CELL DISTRIBUTION WIDTH 15.9 % (11.5-14.5); WHITE BLOOD COUNT 9.6 K/uL (4.8-10.8)
[2017-11-16 08:53] LABS: ALB/GLOB RATIO 1.2 (1.0-2.1); ALBUMIN 3.4 g/dL (3.5-5.0); ALT/SGPT 28 U/L (21-72); AST/SGOT 25 U/L (17-59); BLOOD UREA NITROGEN 29 mg/dL (9-20); CALCIUM 8.2 mg/dl (8.6-10.4); GFR AFRICAN-AMERICAN > 60; GFR NON-AFRICAN AMERICAN > 60
[2017-11-16] MEDS: GlipiZIDE 5 mg SR Tab PO SCH (10:31)
[2017-11-16] MEDS: Ammonium Lactate 12% Lotion (225 g) EXT SCH (10:32)
[2017-11-16] MEDS: Saccharomyces Boulardi 250 mg Cap PO SCH ×2 (10:32→18:25)
[2017-11-16] MEDS: guaiFENesin 600 mg ER Tab PO SCH ×2 (10:32→18:25)
[2017-11-16] MEDS: Fluticasone-Salmeterol 250-50mcg Diskus INH SCH (19:37)
[2017-11-16] MEDS: (Lantus) Insulin Glargine, Recombinant SC SCH (22:06)
[2017-11-17] MEDS: Acetylcysteine 20% Inhal Soln (4ml) INH SCH ×5 (00:35→15:37)
[2017-11-17] MEDS: Albuterol-Ipratrop 3 mg / 0.5 (3 ml) UD INH SCH ×4 (00:35→15:37)
[2017-11-17] MEDS: Fluticasone-Salmeterol 250-50mcg Diskus INH SCH (07:15)
--- NOTE | 2017-11-17 07:17 | CP.PCM.PN ---
Objective - Vital Signs/Intake and Output Vital Signs (last 24 hours): Temp Pulse Resp BP Pulse Ox 97.7 F 77 20 107/58 L 97 11/16/17 23:10 11/16/17 23:10 11/16/17 23:10 11/16/17 23:10 11/16/17 23:10 Intake and Output: 11/17/17 11/17/17 06:59 18:59 Intake Total 750 Output Total 1700 Balance -950 - Medications Medications: Current Medications Acetylcysteine (Acetylcysteine 20%) 4 ml INH RQ4 [facility] Last Admin: 11/17/17 05:01 Dose: Not Given Albuterol/Ipratropium (Duoneb 3 Mg/0.5 Mg (3 Ml) Ud) 3 ml INH RQ4 [facility] Last Admin: 11/17/17 00:35 Dose: Not Given Glipizide (Glucotrol Xl) 5 mg PO DAILY [facility] Last Admin: 11/16/17 10:31 Dose: 5 mg Guaifenesin (Mucinex La) 600 mg PO BID [facility] Last Admin: 11/16/17 18:25 Dose: 600 mg Imipenem/Cilastatin Sodium 500 (mg/ Sodium Chloride) 100 mls @ 100 mls/hr IVPB Q6H [facility] Last Admin: 11/17/17 02:34 Dose: 100 mls/hr Insulin Glargine (Lantus) 10 unit SC HS [facility] Last Admin: 11/16/17 22:06 Dose: Not Given Insulin Human Regular (Novolin R) 0 unit SC ACHS LUANN PRN Reason: Protocol Last Admin: 11/16/17 16:30 Dose: Not Given Lactic Acid (Lac-Hydrin 12% Lotion (225 G)) 1 gm EXT DAILY [facility] Last Admin: 11/16/17 10:32 Dose: 1 applic Lisinopril (Zestril) 5 mg PO DAILY [facility] Last Admin: 11/16/17 10:31 Dose: 5 mg Promethazine HCl/Codeine (Phenergan/Codeine Oral Syrup) 5 ml PO Q4 PRN PRN Reason: Cough Saccharomyces Boulardii (Florastor) 250 mg PO BID [facility] Last Admin: 11/16/17 18:25 Dose: 250 mg Fluticasone/Salmeterol (Advair Diskus 250/50) 1 puff INH RQ12 [facility] Last Admin: 11/16/17 19:37 Dose: 1 puff - Labs Labs: 11/16/17 08:27 11/16/17 08:27
[2017-11-17 07:21] LABS: BASO # 0.1 K/uL (0.0-0.2); BASO % 0.7 % (0.0-2.0); EOS # 0.1 K/uL (0.0-0.7); EOS % 1.6 % (0.0-4.0); HEMOGLOBIN 12.6 g/dL (12.0-18.0); LYMPH # 2.5 K/uL (1.0-4.3); LYMPH % 31.8 % (20.0-40.0); MEAN CELL VOLUME 85.4 fL (80.0-94.0); MEAN CORPUSCULAR HEMOGLOBIN 28.7 pg (27.0-31.0); MEAN CORPUSCULAR HGB CONC 33.6 g/dL (33.0-37.0); MEAN PLATELET VOLUME 8.1 fL (7.2-11.7); MONO # 1.1 K/uL (0.0-0.8); MONO % 13.7 % (0.0-10.0); NEUT # 4.1 K/uL (1.8-7.0); NEUT % 52.2 % (50.0-75.0); NRBC % 0.1 % (0.0-2.0); RBC 4.39 Mil/uL (4.40-5.90); RED CELL DISTRIBUTION WIDTH 16.2 % (11.5-14.5); WHITE BLOOD COUNT 7.9 K/uL (4.8-10.8)
[2017-11-17] MEDS: (Novolin R) Insulin Human Regular 100 units/ml vial SC SCH ×2 (07:40→11:36)
[2017-11-17 07:41] LABS: ALB/GLOB RATIO 1.2 (1.0-2.1); ALBUMIN 3.5 g/dL (3.5-5.0); ALT/SGPT 33 U/L (21-72); AST/SGOT 22 U/L (17-59); BLOOD UREA NITROGEN 28 mg/dL (9-20); CALCIUM 8.5 mg/dl (8.6-10.4); GFR AFRICAN-AMERICAN > 60; GFR NON-AFRICAN AMERICAN > 60
[2017-11-17] MEDS: GlipiZIDE 5 mg SR Tab PO SCH (09:17)
[2017-11-17] MEDS: Saccharomyces Boulardi 250 mg Cap PO SCH (09:17)
[2017-11-17] MEDS: guaiFENesin 600 mg ER Tab PO SCH (09:17)
[2017-11-17] MEDS: Ammonium Lactate 12% Lotion (225 g) EXT SCH (09:17)
--- NOTE | 2017-11-17 11:30 | CP.PCM.DIS ---
Provider - Provider Date of Admission: 10/24/17 22:54 Attending physician: Mansi Baird MD Time Spent in preparation of Discharge (in minutes): 40 Hospital Course - Lab Results Lab Results: Micro Results 11/07/17 08:52 Other: Please Indicate Mycobacterial Culture - Preliminary 11/11/17 05:41 Other: Please Indicate Mycobacterial Culture - Preliminary 11/09/17 14:21 Other: Please Indicate Mycobacterial Culture - Preliminary 11/09/17 14:20 Sputum Gram Stain - Final 11/09/17 14:20 Sputum Sputum Culture - Final Yeast Species 10/28/17 11:30 Blood Blood Culture - Final NO GROWTH AFTER 5 DAYS 10/28/17 11:30 Blood Gram Stain - Final TEST NOT PERFORMED 10/28/17 13:43 Blood Blood Culture - Final NO GROWTH AFTER 5 DAYS 10/28/17 13:43 Blood Gram Stain - Final TEST NOT PERFORMED 10/28/17 22:32 Sputum Gram Stain - Final 10/28/17 22:32 Sputum Sputum Culture - Final Escherichia Coli Methicillin Resistant S Aureus Most Recent Lab Values WBC 7.9 K/uL (4.8-10.8) 11/17/17 07:14 RBC 4.39 Mil/uL (4.40-5.90) L 11/17/17 07:14 Hgb 12.6 g/dL (12.0-18.0) 11/17/17 07:14 Hct 37.5 % (35.0-51.0) 11/17/17 07:14 MCV 85.4 fL (80.0-94.0) 11/17/17 07:14 MCH 28.7 pg (27.0-31.0) 11/17/17 07:14 MCHC 33.6 g/dL (33.0-37.0) 11/17/17 07:14 RDW 16.2 % (11.5-14.5) H 11/17/17 07:14 Plt Count 203 K/uL (130-400) 11/17/17 07:14 MPV 8.1 fL (7.2-11.7) 11/17/17 07:14 Neut % (Auto) 52.2 % (50.0-75.0) 11/17/17 07:14 Lymph % (Auto) 31.8 % (20.0-40.0) 11/17/17 07:14 Mcdonough % (Auto) 13.7 % (0.0-10.0) H 11/17/17 07:14 Eos % (Auto) 1.6 % (0.0-4.0) 11/17/17 07:14 Baso % (Auto) 0.7 % (0.0-2.0) 11/17/17 07:14 Neut # 4.1 K/uL (1.8-7.0) 11/17/17 07:14 Lymph # 2.5 K/uL (1.0-4.3) 11/17/17 07:14 Mcdonough # 1.1 K/uL (0.0-0.8) H 11/17/17 07:14 Eos # 0.1 K/uL (0.0-0.7) 11/17/17 07:14 Baso # 0.1 K/uL (0.0-0.2) 11/17/17 07:14 Neutrophils % (Manual) 86 % (50-75) H 11/01/17 07:52 Band Neutrophils % 1 % (0-2) 10/28/17 07:47 Lymphocytes % (Manual) 9 % (20-40) L 11/01/17 07:52 Reactive Lymphs % 5 % (0-0) H 10/30/17 08:03 Monocytes % (Manual) 5 % (0-10) 11/01/17 07:52 Eosinophils % (Manual) 1 % (0-4) 10/31/17 07:14 Nucleated RBC % 1 % (0-0) H 10/29/17 07:09 Differential Comment 11/09/17 09:12 Toxic Granulation Present 11/01/17 07:52 Platelet Estimate Normal (NORMAL) 11/01/17 07:52 Large Platelets Present 10/30/17 08:03 Polychromasia Slight 11/01/17 07:52 Hypochromasia (manual) Slight 11/01/17 07:52 Poikilocytosis (manual Slight 11/01/17 07:52 Anisocytosis (manual) Slight 11/01/17 07:52 Macrocytosis (manual) Slight 11/01/17 07:52 Target Cells Slight 10/30/17 08:03 Tear Drop Cells Slight 10/26/17 08:27 Ovalocytes Slight 10/30/17 08:03 Zakiya Cells Slight 11/01/17 07:52 Sodium 134 mmol/L (132-148) 11/17/17 07:14 Potassium 4.4 mmol/L (3.6-5.2) 11/17/17 07:14 Chloride 101 mmol/L (98-107) 11/17/17 07:14 Carbon Dioxide 27 mmol/L (22-30) 11/17/17 07:14 Anion Gap 10 (10-20) 11/17/17 07:14 BUN 28 mg/dL (9-20) H 11/17/17 07:14 Creatinine 1.0 mg/dL (0.8-1.5) 11/17/17 07:14 Est GFR ( Amer) > 60 11/17/17 07:14 Est GFR (Non-Af Amer) > 60 11/17/17 07:14 POC Glucose (mg/dL) 74 mg/dL (65-110) 11/17/17 11:02 Random Glucose 85 mg/dL (75-110) 11/17/17 07:14 Calcium 8.5 mg/dl (8.6-10.4) L 11/17/17 07:14 Phosphorus 2.6 mg/dL (2.5-4.5) 10/28/17 07:17 Magnesium 1.3 mg/dL (1.6-2.3) L 10/28/17 07:17 Total Bilirubin 0.6 mg/dL (0.2-1.3) 11/17/17 07:14 AST 22 U/L (17-59) 11/17/17 07:14 ALT 33 U/L (21-72) 11/17/17 07:14 Alkaline Phosphatase 48 U/L (38-126) 11/17/17 07:14 Total Creatine Kinase 66 U/L (55-170) 10/25/17 11:30 CK-MB (Mass) 2.13 ng/mL (0.0-3.38) 10/25/17 11:30 Troponin I < 0.0120 ng/mL (0.00-0.120) 10/25/17 11:30 NT-Pro-B Natriuret Pep 215 pg/mL (0-900) 10/24/17 22:07 Total Protein 6.3 g/dL (6.3-8.3) 11/17/17 07:14 Albumin 3.5 g/dL (3.5-5.0) 11/17/17 07:14 Globulin 2.8 gm/dL (2.2-3.9) 11/17/17 07:14 Albumin/Globulin Ratio 1.2 (1.0-2.1) 11/17/17 07:14 Procalcitonin < 0.05 NG/ML (0.19-0.49) L 10/27/17 16:55 Gentamicin Trough 2.0 ug/mL (0.0-0.9) H* 11/06/17 12:05 Vancomycin Trough 11.1 ug/mL (5.0-10.0) H 11/09/17 14:31 Influenza Typ A,B (EIA) Negative for flu a/b (NEGATIVE) 10/24/17 21:56 Ur L.pneumophila Ag Negative (NEGATIVE) 10/27/17 09:00 Mycoplasma pneumon IgM Negative (NEGATIVE) 10/27/17 17:26 Ur Strep pneumoniae Ag Not detected 10/27/17 09:22 - Hospital Course Hospital Course: This is a 67 year old male with PMHx COPD, asthma, PE 2 years ago s/p IVC filter placement, retroperotineal hematoma 2 years ago, psoriasis, Diabetes who presents complaining of chest pain and shortness of breath. Patient states that both began 2 hours ago. Chest pain is described as a squeezing sensation located in the mid-sternum with intermittent radiation to the left and right side of the chest wall. It is noticeable particularly when coughing. Patient denies a history of cardiac problems. Patient states that he is coughing and producing green and brown sputum. Patient denies any sick contacts but admits that he lives with a friend during the weekdays and goes to a homeless [facility] on the weekends. Patient states that he only uses an Albuterol inhaler and takes it every 4 hours daily. Patient also complains of a mass in his groin that showed up 2 weeks ago and causes urination to be painful for him. PMHx: COPD, DM, Asthma, PE 2 years ago s/p IVC filter, retroperotineal hematoma 2 years ago, psoriasis PSHx: IVC filter 2 years prior Allergies - NKDA Family Hx: denies Social: 30 pack year history quit 1 year ago used to smoke 3-4 packs a day, former alcoholic, denies drug use. Patient stays at a friend's house during the week but stays in the usp on weekends because his friend's girlfriend comes on Fridays. He goes to the usp daily for meals. Hospital Course: Patient was admitted for COPD exacerbation secondary to atelectasis. Pulmonology Dr. Hernández was consulted. Blood culture 10/28 negative up to date Sputum culture 10/28 (+) for ESBL E.Coli and MRSA. Repeat Sputum culture positive for yeast. Mycobacterium sputum negative x3. Infectious Disease Dr. Stewart was consulted. Antibiotics: IV Abx: Azithromycin 500 mg IV daily (started 10/25) and Ceftriaxone 1 gm IV daily (started 10/25) - discontinued due to sputum culture positive for ESBL Patient was started on vancomycin on 10/31/17 but then switched to Gentamicin for better coverage on 11/01/17 and it was stopped on 11/06/17; Patient was then started on Primaxin 500mg IVPB QID Imaging: CXR 10/24 - No acute findings. Repeat CXR 10/27: Both lower lobe atelectasis. No lobar pneumonia. Repeat CXR 10/30: Very small left pleural effusion. Otherwise unremarkable. CT Chest (10/26/17): paraseptal emphysema in upper lobes, worse on the right and mild centrilobular emphysema in the lungs. No pneumothorax. No evidence of consolidation or pleural effusion Patient has been seen and examined. No overnight events. Patient has no new complaints at this time. His cough continues to be controlled with medications. Patient stable for discharge per Dr. Baird. Per Dr. Stewart patient is stable for discharge and should be discharged home with Bactrim q12h for 7 days. Discussed with patient to follow up in the clinic and patient understands and states he will. Patient to start new medications: 1.) Bactrim 1 tablet every 12 hours for 7 days. 2.) Bacid 1 tablet every day for 7 days. 3.) Lisinopril 5mg 1 tablet daily. 4.) Glipizide 5mg 1 tablet daily Patient to continue home medications: 1) Ventolin HFA 2) Advair 250/50 1inhaler INH Q12H Patient to follow up in the [facility]: Please call to make an appointment: [phone] If patient symptoms worsen patient to return to the Emergency Room. This is only a summary of the patient's hospital course please refer to EMR for complete hospital course. Discharge Exam - Head Exam Head Exam: ATRAUMATIC, NORMOCEPHALIC - Eye Exam Eye Exam: EOMI, Normal appearance - ENT Exam ENT Exam: Mucous Membranes Moist - Respiratory Exam Respiratory Exam: Clear to PA & Lateral, NORMAL BREATHING PATTERN - Cardiovascular Exam Cardiovascular Exam: REGULAR RHYTHM, +S1, +S2 - GI/Abdominal Exam GI & Abdominal Exam: Normal Bowel Sounds, Soft. absent: Tenderness - Extremities Exam Extremities exam: normal inspection - Neurological Exam Neurological exam: Alert - Psychiatric Exam Psychiatric exam: Normal Affect, Normal Mood - Skin Skin Exam: Normal Color, Warm Discharge Plan - Discharge Medications Prescriptions: Albuterol HFA [Ventolin HFA 90 mcg/actuation (8 g)] 2 puff IH [id number] PRN 30 Days #1 inh PRN Reason: Shortness Of Breath Acidoph/L.bulg/Bif.b/S.thermop [Bacid Probiotic 5%-80%-10%-5%] 1 tab PO DAILY # 7 tab Fluticasone/Salmeterol 250/50 [Advair Diskus 250/50] 1 puff IH Q12 30 Days puff GlipiZIDE SR [Glucotrol XL] 5 mg PO DAILY #30 tab Lisinopril [Zestril] 5 mg PO DAILY #30 tab Sulfamethoxazole/Trimethoprim [Bactrim 400-80 mg Tablet] 1 each PO Q12H #14 tablet - Follow Up Plan Condition: FAIR Disposition: HOME/ ROUTINE Instructions: Sulfamethoxazole/Trimethoprim (By mouth), Lisinopril (By mouth), Glipizide (By mouth), Albuterol (By breathing), Fluticasone/Salmeterol (By breathing), Probiotic (By mouth), Heart Failure (DC), Inguinal Hernia (DC), COPD (Chronic Obstructive Pulmonary Disease) (DC) Additional Instructions: Follow up at Dr. Estrella's office to schedule surgery for Inguinal hernia repair. Referrals: David Estrella MD [Staff Provider] -
[2017-11-17 16:22] VITALS: BP 111/65; PULSE 98; TEMP 97.8; O2SAT 96
== END 2017-11-17 19:41 | disposition home or self-care (01) | DRG 541 ==
LOC: C.ER 21:43 → OBSVTOIN 22:54 → C.9E 22:54 → C.3T 10-25 00:25 → C.9E 10-25 00:38 → C.5S 10-25 00:48 → OBSVTOIN 10-27 14:13 → INTOOBSV 10-27 14:13 → C.3T 10-28 22:07
PROVIDERS: ADMIT Family Medicine; ATTEND Internal Medicine
DX: J44.0 Chronic obstructive pulmonary disease with (acute) lower respiratory infection (principal); J18.9 Pneumonia, unspecified organism; I11.0 Hypertensive heart disease with heart failure; I50.9 Heart failure, unspecified; J45.901 Unspecified asthma with (acute) exacerbation; K40.90 Unilateral inguinal hernia, without obstruction or gangrene, not specified as recurrent; J98.11 Atelectasis; J44.1 Chronic obstructive pulmonary disease with (acute) exacerbation; E11.9 Type 2 diabetes mellitus without complications; Z86.711 Personal history of pulmonary embolism; Z87.891 Personal history of nicotine dependence; Z59.0 Homelessness; L40.9 Psoriasis, unspecified; T38.0X5A Adverse effect of glucocorticoids and synthetic analogues, initial encounter; D72.829 Elevated white blood cell count, unspecified; B96.20 Unspecified Escherichia coli [E. coli] as the cause of diseases classified elsewhere

== ENCOUNTER 2018-05-22 19:17 | Inpatient (IN) | payer OTHER ==
[2018-05-22] MEDS ORDERED: Albuterol-Ipratrop 3 mg / 0.5 (3 ml) UD INH STA ×2 (19:32)
[2018-05-22] MEDS ORDERED: Sodium Chloride 0.9% 1,000 ML IV ONE ×2 (19:33→20:41)
[2018-05-22] MEDS ORDERED: Sodium Chloride 0.9% 1,000 ML ONE ×2 (19:40→21:59)
[2018-05-22] MEDS ORDERED: Albuterol-Ipratrop 3 mg / 0.5 (3 ml) UD ONE (19:40)
[2018-05-22 19:41] LABS: BASO # 0.1 K/uL (0.0-0.2); BASO % 0.5 % (0.0-2.0); HEMOGLOBIN 12.7 g/dL (12.0-18.0); LYMPH # 2.8 K/uL (1.0-4.3); LYMPH % 17.4 % (20.0-40.0); MEAN CORPUSCULAR HEMOGLOBIN 26.2 pg (27.0-31.0); MEAN CORPUSCULAR HGB CONC 32.9 g/dL (33.0-37.0); MEAN PLATELET VOLUME 8.5 fL (7.2-11.7); MONO # 1.1 K/uL (0.0-0.8); MONO % 6.7 % (0.0-10.0); NEUT # 12.1 K/uL (1.8-7.0); NEUT % 75.4 % (50.0-75.0); NRBC % 0.2 % (0.0-2.0); RBC 4.86 Mil/uL (4.40-5.90); RED CELL DISTRIBUTION WIDTH 15.1 % (11.5-14.5)
[2018-05-22 19:42] LABS: MEAN CELL VOLUME 79.6 fL (80.0-94.0); WHITE BLOOD COUNT 16.1 K/uL (4.8-10.8)
--- NOTE | 2018-05-22 19:56 | C.PDOC ---
History Of Present Illness 67 year old male, whose PMHx includes COPD, presents to the ED for evaluation of shortness of breath which began 2 days ago. Patient also complains of cough that is productive of brown sputum. Patient reports feeling warm at home. He denies chest pain, nausea, vomiting. Chief Complaint (Nursing): Respiratory Distress History Per: Patient History/Exam Limitations: no limitations Onset/Duration Of Symptoms: Days (2) Current Symptoms Are (Timing): Still Present Quality: denies: "Pain" Current Respiratory Medications: See Home Med List Associated Symptoms: Productive Cough (brown sputum ). denies: Chest Pain Additional History Per: Patient Past Medical History Reviewed: Historical Data, Nursing Documentation, Vital Signs Vital Signs: Last Vital Signs Temp 98.9 F 05/22/18 19:25 Pulse 99 H 05/22/18 20:22 Resp 22 05/22/18 20:22 BP 144/62 05/22/18 20:22 Pulse Ox 99 05/22/18 20:22 - Medical History PMH: Asthma, CHF, COPD (asthma), Diabetes, HTN, Hypercholesterolemia, Pneumonia , Pulmonary Embolism Denies: HIV, Chronic Kidney Disease Surgical History: No Surg Hx - [facility] ASSISTANCE WITH RESPIRATORY VENTILATION, >96 HRS (07/28/16) INFLUENZA VACCINATION (08/27/13) INSERTION OF INFUSION DEV INTO SUP VENA CAVA, PERC APPROACH (08/18/17) INSERTION OF INTRALUM DEV INTO INF VENA CAVA, PERC APPROACH (03/09/17) INTRODUCE OF OTH THERAP SUBST INTO RESP TRACT, VIA OPENING (05/25/16) INTRODUCTION OF ANTI-INFLAM INTO RESP TRACT, VIA OPENING (03/29/18) INTRODUCTION OF SERUM/TOX/VACCINE INTO MUSCLE, PERC APPROACH (08/18/17) NEBULIZER THERAPY (08/26/14) TRANSFUSE NONAUT FROZEN PLASMA IN PERIPH VEIN, PERC (07/28/16) TRANSFUSE NONAUT PLASMA CRYOPRECIP IN PERIPH VEIN, PERC (07/28/16) TRANSFUSE NONAUT RED BLOOD CELLS IN PERIPH VEIN, PERC (07/28/16) VACCINATION NEC (08/27/13) Family History: States: [place], Diabetes - Social History Hx Tobacco Use: Yes (1/2 CIG/DAY) Hx Alcohol Use: No Hx Substance Use: No - Immunization History Hx Tetanus Toxoid Vaccination: No Hx Influenza Vaccination: No Hx Pneumococcal Vaccination: No Review Of Systems Cardiovascular: Negative for: Chest Pain Respiratory: Positive for: Cough, Shortness of Breath, Sputum (brown ) Gastrointestinal: Negative for: Nausea, Vomiting Physical Exam - Physical Exam Appears: Non-toxic, Other (in moderate distress, due to being short of breath ) Skin: Normal Color, Warm, Dry Head: Atraumatic, Normacephalic Eye(s): bilateral: Normal Inspection Oral Mucosa: Moist Neck: Supple Chest: Symmetrical, No Deformity, No Tenderness Cardiovascular: Rhythm Regular Respiratory: No Rales, No Rhonchi, Wheezing (bilaterally ) Extremity: Normal ROM, Capillary Refill (less than 2 seconds ), No Swelling Pulses: Left Dorsalis Pedis: Normal, Right Dorsalis Pedis: Normal Neurological/Psych: Oriented x3, Normal Speech, Normal Cognition ED Course And Treatment - Laboratory Results Result Diagrams: 05/22/18 19:41 05/22/18 19:45 Rate From EC O2 Sat by Pulse Oximetry: 98 (on RA) Pulse Ox Interpretation: Normal - Radiology CXR: Interpreted by Me, Viewed By Me CXR Interpretation: Yes: No Acute Disease. No: Infiltrates Progress Note: Bloodwork, CXR, and EKG ordered and reviewed. Albuterol INH and IV Fluids given. Disposition Discussed With Dr.: Donnie Bledsoe Doctor Will See Patient In The: Hospital Counseled Patient/Family Regarding: Diagnosis - Disposition Disposition: HOSPITALIZED Disposition Time: 20:54 Condition: STABLE Forms: [facility] (Polish) - POA Present On Arrival: None - Clinical Impression Clinical Impression: Dyspnea, COPD exacerbation - Scribe Statement The provider has reviewed the documentation as recorded by the Scribe (Chuyita Lopez) Provider Attestation: All medical record entries made by the Scribe were at my direction and personally dictated by me. I have reviewed the chart and agree that the record accurately reflects my personal performance of the history, physical exam, medical decision making, and the department course for this patient. I have also personally directed, reviewed, and agree with the discharge instructions and disposition.
[2018-05-22 20:05] LABS: ALB/GLOB RATIO 1.3 (1.0-2.1); ALBUMIN 3.4 g/dL (3.5-5.0); ALT/SGPT 33 U/L (21-72); AST/SGOT 16 U/L (17-59); BLOOD UREA NITROGEN 36 mg/dL (9-20); CALCIUM 8.6 mg/dl (8.6-10.4); GFR AFRICAN-AMERICAN > 60; GFR NON-AFRICAN AMERICAN > 60
--- NOTE | 2018-05-22 22:51 | CP.PCM.HP ---
<Chuy Hurley - Last Filed: 05/23/18 05:24> History of Present Illness - History of Present Illness History of Present Illness: CC "shortness of breath, chest pain, cough" HPI Patient is a 67 year old male with history of COPD, Type 2 DM, HTN, PE 3 years ago with IVC filter, psoriasis who presents for complaints of 2 day history of chest pain, shortness of breath, and cough productive of brown and yellow sputum that worsened this evening. Admits to subjective fevers and chills , along with dizziness, headache. He states he had abdominal pain with vomiting and diarrhea 2 days ago. He states he has had some burning with urination with blood in his urine recently. States he has had normal bowel movements, denies diarrhea or constipation. Denies leg pain, however states he has had some swelling of his lower extremities. PMD: none PMH: COPD, Type 2 DM, HTN, PE with IVC filter, Psoriasis PSH: IVC filter placement Social history: former smoker, used to smoke 2-3 ppd. Former alcohol abuser - quit last year. Denies illicit drug use. He states he lives with friend, as per prior records, is homeless. Family hx: sister - DM. Meds: none Allergies: NKDA Present on Admission - Present on Admission Any Indicators Present on Admission: Yes History of DVT/PE: Yes Review of Systems - Constitutional Constitutional: Chills, Fever, Headache - Cardiovascular Cardiovascular: Chest Pain, Dyspnea, Dyspnea on Exertion. absent: Palpitations - Respiratory Respiratory: Cough, Dyspnea, Dyspnea on Exertion, Wheezing, Change in Mucous Color. absent: Stridor - Gastrointestinal Gastrointestinal: Abdominal Pain, Diarrhea, Vomiting. absent: Constipation, Hematemesis, Hematochezia, Nausea - Genitourinary Genitourinary: Dysuria, Hematuria - Musculoskeletal Musculoskeletal: absent: Back Pain, Stiffness, Tingling - Neurological Neurological: Dizziness. absent: Abnormal Gait, Abnormal Hearing, Abnormal Movements, Confusion - Psychiatric Psychiatric: absent: Anxiety, Depression Past Patient History - Infectious Disease Hx of Infectious Diseases: None - Tetanus Immunizations Tetanus Immunization: Unknown - Past Medical History & Family History Past Medical History?: Yes - Past Social History Smoking Status: Light Smoker < 10 Cigarettes Daily - CARDIAC Hx Congestive Heart Failure: Yes Hx Hypercholesterolemia: Yes Hx Hypertension: Yes - PULMONARY Hx Asthma: Yes Hx Chronic Obstructive Pulmonary Disease (COPD): Yes (asthma) Hx Pneumonia: Yes Hx Pulmonary Embolism: Yes - NEUROLOGICAL Hx Neurological Disorder: No - HEENT Hx HEENT Problems: No - RENAL Hx Chronic Kidney Disease: No - ENDOCRINE/METABOLIC Hx Endocrine Disorders: Yes Hx Diabetes Mellitus Type 2: Yes - HEMATOLOGICAL/ONCOLOGICAL Hx Human Immunodeficiency Virus (HIV): No - INTEGUMENTARY Hx Dermatological Problems: Yes (GENERALIZED SKIN PSORIASIS) Hx Psoriasis: Yes - MUSCULOSKELETAL/RHEUMATOLOGICAL Hx Musculoskeletal Disorders: No Hx Falls: No - GASTROINTESTINAL Hx Gastrointestinal Disorders: Yes Other/Comment: GI bleeding - GENITOURINARY/GYNECOLOGICAL Hx Genitourinary Disorders: No - PSYCHIATRIC Hx Substance Use: No - SURGICAL HISTORY Hx Surgeries: Yes Other/Comment: IVC Filter - ANESTHESIA Hx Anesthesia: Yes Hx Anesthesia Reactions: No Hx Malignant Hyperthermia: No Meds Allergies/Adverse Reactions: Allergies Allergy/AdvReac Type Severity Reaction Status Date / Time No Known Allergies Allergy Verified 05/22/18 19:29 Physical Exam - Constitutional Appears: No Acute Distress Additional comments: malodorous, poor hygiene - Head Exam Head Exam: ATRAUMATIC, NORMOCEPHALIC - Eye Exam Eye Exam: Conjunctival injection, EOMI - ENT Exam ENT Exam: Mucous Membranes Dry - Neck Exam Neck exam: Positive for: Full Rom. Negative for: Lymphadenopathy, Tenderness - Respiratory Exam Respiratory Exam: Rhonchi, Wheezes (diffusely. Coughing). absent: Chest Wall Tenderness, Rales, Stridor - Cardiovascular Exam Cardiovascular Exam: REGULAR RHYTHM, +S1, +S2 - GI/Abdominal Exam GI & Abdominal Exam: Normal Bowel Sounds, Soft. absent: Distended, Firm, Guarding, Hernia, Tenderness - Extremities Exam Extremities exam: Positive for: pedal edema (bilateral), pedal pulses present. Negative for: calf tenderness Additional comments: Thickened yellow toe nails on feet with dry skin - Back Exam Back exam: absent: CVA tenderness (L), CVA tenderness (R) - Neurological Exam Neurological exam: Alert, Oriented x3 - Skin Skin Exam: Rash (Discolored flat patches noted on abdomen and arms. No raised plaques noted. ) Results - Vital Signs Recent Vital Signs: Last Vital Signs Temp 98.9 F 05/22/18 19:25 Pulse 92 H 05/22/18 21:58 Resp 18 05/22/18 21:58 BP 133/61 05/22/18 21:58 Pulse Ox 96 05/22/18 21:58 - Labs Result Diagrams: 05/22/18 19:41 05/22/18 19:45 Labs: Laboratory Results - last 24 hr 05/22/18 05/22/18 05/22/18 19:30 19:41 19:43 WBC 16.1 H D RBC 4.86 Hgb 12.7 Hct 38.7 MCV 79.6 L D MCH 26.2 L MCHC 32.9 L RDW 15.1 H Plt Count 253 MPV 8.5 Neut % (Auto) 75.4 H Lymph % (Auto) 17.4 L [place] % (Auto) 6.7 Eos % (Auto) 0.0 Baso % (Auto) 0.5 Neut # (Auto) 12.1 H Lymph # (Auto) 2.8 [place] # (Auto) 1.1 H Eos # (Auto) 0.0 Baso # (Auto) 0.1 D-Dimer, Quantitative < 200 Sodium Potassium Chloride Carbon Dioxide Anion Gap BUN Creatinine Est GFR ( Amer) Est GFR (Non-Af Amer) Random Glucose Calcium Total Bilirubin AST ALT Alkaline Phosphatase Troponin I Total Protein Albumin Globulin Albumin/Globulin Ratio Influenza Typ A,B (EIA) Negative for flu a/b 05/22/18 19:45 WBC RBC Hgb Hct MCV MCH MCHC RDW Plt Count MPV Neut % (Auto) Lymph % (Auto) [place] % (Auto) Eos % (Auto) Baso % (Auto) Neut # (Auto) Lymph # (Auto) [place] # (Auto) Eos # (Auto) Baso # (Auto) D-Dimer, Quantitative Sodium 137 Potassium 4.3 Chloride 99 Carbon Dioxide 28 Anion Gap 15 BUN 36 H Creatinine 1.0 Est GFR ( Amer) > 60 Est GFR (Non-Af Amer) > 60 Random Glucose 70 L Calcium 8.6 Total Bilirubin 0.4 AST 16 L D ALT 33 Alkaline Phosphatase 52 Troponin I 0.0120 Total Protein 6.0 L Albumin 3.4 L Globulin 2.6 Albumin/Globulin Ratio 1.3 Influenza Typ A,B (EIA) Assessment & Plan - Assessment and Plan (Free Text) Plan: Assessment and plan Shortness of breath Cough productive of brown/yellow sputum COPD exacerbation * IN ED: Duonebs x1, NS fluids 1L bolus, then NS 100cc/hr * Duonebs Q4 * Solumedrol 40mg IV Q8 * Singulair 10mg HS * O2 2L * CXR: no active disease * EKG: NSR at 80, no ST-T changes * Blood cultures ordered * Troponins initial 0.0120 * D-dimer <200 * Negative for influenza Dysuria Hematuria * UA ordered * Urine culture ordered Leukocytosis * White count 16.1 * Afebrile, not tachycardic Lower extremity edema Hx of PE * Dopplers ordered History of Hypertension * Currently stable 133/61 * Continue to monitor History of Type 2 DM * HbA1c ordered * Patient not compliant with medications * Hypoglycemic protocol Prophylaxis * Pepcid 20mg PO * Heparin 5000 units SC q8 * Heart healthy diet Case discussed with Dr. Ladi Hurley, PGY1 <Donnie Bledsoe - Last Filed: 05/23/18 06:43> Results - Vital Signs Recent Vital Signs: Last Vital Signs Temp 97.7 F 05/22/18 23:39 Pulse 100 H 05/22/18 23:39 Resp 20 05/22/18 23:52 BP 145/71 05/22/18 23:39 Pulse Ox 97 05/22/18 23:39 - Labs Result Diagrams: 05/22/18 19:41 05/22/18 19:45 Labs: Laboratory Results - last 24 hr 05/22/18 05/22/18 05/22/18 19:30 19:41 19:43 WBC 16.1 H D RBC 4.86 Hgb 12.7 Hct 38.7 MCV 79.6 L D MCH 26.2 L MCHC 32.9 L RDW 15.1 H Plt Count 253 MPV 8.5 Neut % (Auto) 75.4 H Lymph % (Auto) 17.4 L [place] % (Auto) 6.7 Eos % (Auto) 0.0 Baso % (Auto) 0.5 Neut # (Auto) 12.1 H Lymph # (Auto) 2.8 [place] # (Auto) 1.1 H Eos # (Auto) 0.0 Baso # (Auto) 0.1 D-Dimer, Quantitative < 200 Sodium Potassium Chloride Carbon Dioxide Anion Gap BUN Creatinine Est GFR ( Amer) Est GFR (Non-Af Amer) Random Glucose Calcium Total Bilirubin AST ALT Alkaline Phosphatase Troponin I Total Protein Albumin Globulin Albumin/Globulin Ratio Urine Color Urine Clarity Urine pH Ur Specific [place] Urine Protein Urine Glucose (UA) Urine Ketones Urine Blood Urine Nitrate Urine Bilirubin Urine Urobilinogen Ur Leukocyte Esterase Urine RBC (Auto) Influenza Typ A,B (EIA) Negative for flu a/b 05/22/18 05/23/18 19:45 03:57 WBC RBC Hgb Hct MCV MCH MCHC RDW Plt Count MPV Neut % (Auto) Lymph % (Auto) [place] % (Auto) Eos % (Auto) Baso % (Auto) Neut # (Auto) Lymph # (Auto) [place] # (Auto) Eos # (Auto) Baso # (Auto) D-Dimer, Quantitative Sodium 137 Potassium 4.3 Chloride 99 Carbon Dioxide 28 Anion Gap 15 BUN 36 H Creatinine 1.0 Est GFR ( Amer) > 60 Est GFR (Non-Af Amer) > 60 Random Glucose 70 L Calcium 8.6 Total Bilirubin 0.4 AST 16 L D ALT 33 Alkaline Phosphatase 52 Troponin I 0.0120 Total Protein 6.0 L Albumin 3.4 L Globulin 2.6 Albumin/Globulin Ratio 1.3 Urine Color Yellow Urine Clarity Clear Urine pH 5.0 Ur Specific [place] 1.023 Urine Protein Negative Urine Glucose (UA) 3+ H Urine Ketones Negative Urine Blood Negative Urine Nitrate Negative Urine Bilirubin Negative Urine Urobilinogen Normal Ur Leukocyte Esterase Neg Urine RBC (Auto) 1 Influenza Typ A,B (EIA) Assessment & Plan - Date & Time Date: 05/23/18 (I have seen and examined the patient. I agree with the findings and plan of care as documented by Dr. Hurley. Patient with COPD exacerbation. Oxygen, nebs, solumedrol, and singulair. Also with dysuria. Check UA and culture. Monitor for acute changes.) Time: 06:42 Attending/Attestation - Attestation I have personally seen and examined this patient.: Yes I have fully participated in the care of the patient.: Yes I have reviewed all pertinent clinical information: Yes
[2018-05-22] MEDS ORDERED: Glucagon Recombinant 1 mg Inj IM PRN (23:42)
[2018-05-22] MEDS ORDERED: Dextrose 50% SYRINGE Inj (50 ml) IV PRN (23:42)
[2018-05-22] MEDS: Albuterol-Ipratrop 3 mg / 0.5 (3 ml) UD INH SCH (23:58)
[2018-05-23] MEDS: Sodium Chloride 0.9% 1,000 ML IV SCH ×3 (00:30→22:31)
[2018-05-23] MEDS: Albuterol-Ipratrop 3 mg / 0.5 (3 ml) UD INH SCH ×5 (03:26→20:23)
[2018-05-23 04:03] LABS: URINE BILIRUBIN NEGATIVE (NEGATIVE); URINE BLOOD NEGATIVE (NEGATIVE); URINE CLARITY Clear (Clear); URINE COLOR Yellow (YELLOW); URINE GLUCOSE (UA) 3+ mg/dL (Normal); URINE LEUKOCYTE ESTERASE NEG Leu/uL (Negative); URINE PROTEIN NEGATIVE (NEGATIVE); URINE UROBILINOGEN NORMAL mg/dL (0.2-1.0)
[2018-05-23] MEDS: MethylPREDNISolone 40 mg Vial IVP SCH ×3 (05:11→21:41)
--- NOTE | 2018-05-23 09:40 | RAD ---
Date of service: 05/22/2018 PROCEDURE: CHEST RADIOGRAPH, 1 VIEW HISTORY: SOB COMPARISON: None available. FINDINGS: LUNGS: Limited linear atelectasis or fibrosis in the left base. No airspace disease identified bilaterally. PLEURA: No pneumothorax or pleural fluid seen. CARDIOVASCULAR: Normal. OSSEOUS STRUCTURES: No significant abnormalities. VISUALIZED UPPER ABDOMEN: Normal. OTHER FINDINGS: None. IMPRESSION: Limited linear atelectasis or fibrosis is noted at the left base laterally. The remainder of the examination appears stable and unremarkable.
--- NOTE | 2018-05-23 12:11 | CP.PCM.PN ---
Subjective - Date & Time of Evaluation Date of Evaluation: 05/23/18 Time of Evaluation: 09:00 - Subjective Subjective: c/o cough ,sob and wheezing sitting on bed with mild SOB and coughing Objective - Vital Signs/Intake and Output Vital Signs (last 24 hours): Temp Pulse Resp BP Pulse Ox 98.2 F 95 H 20 166/74 H 95 05/23/18 08:00 05/23/18 08:00 05/23/18 08:00 05/23/18 08:00 05/23/18 08:00 Intake and Output: 05/23/18 05/23/18 06:59 18:59 Intake Total 800 Balance 800 - Medications Medications: Current Medications Albuterol/Ipratropium (Duoneb 3 Mg/0.5 Mg (3 Ml) Ud) 3 ml INH RQ4 [facility] Last Admin: 05/23/18 11:23 Dose: 3 ml Dextrose (Dextrose 50% Inj) 0 ml IV STAT PRN; Protocol PRN Reason: Hypoglycemia Protocol Dextrose (Glutose 15) 0 gm PO ONCE PRN; Protocol PRN Reason: Hypoglycemia Protocol Famotidine (Pepcid) 20 mg PO DAILY [facility] Last Admin: 05/23/18 10:39 Dose: 20 mg Glucagon (Glucagen Diagnostic Kit) 0 mg IM STAT PRN; Protocol PRN Reason: Hypoglycemia Protocol Heparin Sodium (Porcine) (Heparin) 5,000 units SC Q8 [facility] Last Admin: 05/23/18 05:11 Dose: 5,000 units Sodium Chloride (Sodium Chloride 0.9%) 1,000 mls @ 100 mls/hr IV .Q10H [facility] Last Admin: 05/23/18 10:39 Dose: Not Given Dextrose (Dextrose 5% In Water 1000 Ml) 1,000 mls @ 0 mls/hr IV .Q0M PRN; Protocol; Per Protocol PRN Reason: Hypoglycemia Protocol Methylprednisolone (Solu-Medrol) 40 mg IVP Q8 [facility] Last Admin: 05/23/18 05:11 Dose: 40 mg Montelukast Sodium (Singulair) 10 mg PO HS [facility] - Labs Labs: 05/22/18 19:41 05/22/18 19:45 - Constitutional Appears: No Acute Distress, Chronically Ill - Head Exam Head Exam: NORMAL INSPECTION - Eye Exam Eye Exam: Normal appearance - ENT Exam ENT Exam: Mucous Membranes Moist - Neck Exam Neck Exam: Full ROM - Respiratory Exam Respiratory Exam: Wheezes (bilateral wheeze.). absent: Accessory Muscle Use, Respiratory Distress - Cardiovascular Exam Cardiovascular Exam: REGULAR RHYTHM - GI/Abdominal Exam GI & Abdominal Exam: Soft, Normal Bowel Sounds. absent: Tenderness - Extremities Exam Extremities Exam: Full ROM - Neurological Exam Neurological Exam: Awake, Oriented x3 - Psychiatric Exam Psychiatric exam: Normal Mood - Skin Skin Exam: Rash (dry rash, pigmented skin) Assessment and Plan - Assessment and Plan (Free Text) Assessment: Patient is a 67 year old male with history of COPD, Type 2 DM, HTN, PE 3 years ago with IVC filter, psoriasis who presents for complaints of 2 day history of chest pain, shortness of breath, and cough productive of brown and yellow sputum . He admitted to subjective fevers and chills, along with dizziness, headache. He also stated that he had abdominal pain with vomiting and diarrhea 2 days ago. Plan: 1.Shortness of breath Acute exacerbation of COPD Likely due to noncompliance with his medical care Cough productive of brown/yellow sputum. continue duoneb,solumedrol,singulair chest x ray negative,continue oxygen,negative influenza Leukocytosis likely due to recent steroid 2. Dysuria/Hematuria UA clean 3. Lower extremity edema /PE follow doppler chronic skin changes/chronic edema 4. History of Hypertension Stable and we will monitor 5. History of Type 2 DM follow HbA1c, not compliant with medications Prophylaxis * Pepcid 20mg PO * Heparin 5000 units SC q8 * Heart healthy diet
[2018-05-23] MEDS: (Novolin R) Insulin Human Regular 100 units/ml vial SC SCH ×2 (16:30→21:49)
[2018-05-24] MEDS: Albuterol-Ipratrop 3 mg / 0.5 (3 ml) UD INH SCH ×6 (00:56→19:26)
[2018-05-24] MEDS: Sodium Chloride 0.9% 1,000 ML IV SCH ×2 (03:57→13:53)
[2018-05-24] MEDS: MethylPREDNISolone 40 mg Vial IVP SCH ×4 (05:03→21:39)
[2018-05-24 07:01] LABS: BASO # 0.1 K/uL (0.0-0.2); BASO % 0.9 % (0.0-2.0); EOS % 0.1 % (0.0-4.0); HEMOGLOBIN 11.7 g/dL (12.0-18.0); LYMPH % 7.2 % (20.0-40.0); MEAN CELL VOLUME 79.9 fL (80.0-94.0); MEAN CORPUSCULAR HEMOGLOBIN 26.2 pg (27.0-31.0); MEAN CORPUSCULAR HGB CONC 32.8 g/dL (33.0-37.0); MEAN PLATELET VOLUME 8.6 fL (7.2-11.7); MONO # 0.8 K/uL (0.0-0.8); MONO % 5.7 % (0.0-10.0); NEUT # 12.2 K/uL (1.8-7.0); NEUT % 86.1 % (50.0-75.0); NRBC % 0.1 % (0.0-2.0); PLATELET COUNT 247 K/uL (130-400); RBC 4.47 Mil/uL (4.40-5.90); RED CELL DISTRIBUTION WIDTH 15.5 % (11.5-14.5); WHITE BLOOD COUNT 14.1 K/uL (4.8-10.8)
[2018-05-24 07:13] LABS: ALB/GLOB RATIO 1.2 (1.0-2.1); ALT/SGPT 28 U/L (21-72); AST/SGOT 14 U/L (17-59); BLOOD UREA NITROGEN 28 mg/dL (9-20); CALCIUM 8.3 mg/dl (8.6-10.4); GFR AFRICAN-AMERICAN > 60; GFR NON-AFRICAN AMERICAN > 60
[2018-05-24] MEDS: (Novolin R) Insulin Human Regular 100 units/ml vial SC SCH ×4 (08:44→21:40)
[2018-05-24 08:50] LABS: ANISOCYTOSIS SLIGHT; HYPOCHROMIC SLIGHT; LYMPHOCYTE 9 % (20-40); MONOCYTE 3 % (0-10); NEUTROPHIL 88 % (50-75); NUCLEATED RED BLOOD CELL 1 % (0-0); OVALOCYTES SLIGHT; PLATELET ESTIMATE NORMAL (NORMAL); POIKILOCYTOSIS SLIGHT; TOTAL CELLS COUNTED 100
[2018-05-24 08:51] LABS: TEARDROP CELLS SLIGHT
--- NOTE | 2018-05-24 16:41 | CP.PCM.PN ---
<Dallas Rueda S - Last Filed: 05/24/18 16:32> Subjective - Date & Time of Evaluation Date of Evaluation: 05/24/18 Time of Evaluation: 16:32 - Subjective Subjective: Medicine Prrogress Note Pt seen and examined at bedside. He complains of persistent wheezing although this has gotten better. He does get short of breath with exertion. No other acute complaints. Denies fevers and chills. Objective - Vital Signs/Intake and Output Vital Signs (last 24 hours): Temp Pulse Resp BP Pulse Ox 98.1 F 82 20 150/75 100 05/24/18 00:00 05/24/18 08:39 05/24/18 08:39 05/24/18 08:39 05/24/18 16:00 Intake and Output: 05/24/18 05/24/18 06:59 18:59 Intake Total 600 Balance 600 - Medications Medications: Current Medications Albuterol/Ipratropium (Duoneb 3 Mg/0.5 Mg (3 Ml) Ud) 3 ml INH RQ4 [facility] Last Admin: 05/24/18 12:03 Dose: 3 ml Dextrose (Dextrose 50% Inj) 0 ml IV STAT PRN; Protocol PRN Reason: Hypoglycemia Protocol Dextrose (Glutose 15) 0 gm PO ONCE PRN; Protocol PRN Reason: Hypoglycemia Protocol Famotidine (Pepcid) 20 mg PO DAILY [facility] Last Admin: 05/24/18 10:44 Dose: 20 mg Glucagon (Glucagen Diagnostic Kit) 0 mg IM STAT PRN; Protocol PRN Reason: Hypoglycemia Protocol Heparin Sodium (Porcine) (Heparin) 5,000 units SC Q8 [facility] Last Admin: 05/24/18 13:01 Dose: 5,000 units Sodium Chloride (Sodium Chloride 0.9%) 1,000 mls @ 100 mls/hr IV .Q10H [facility] Last Admin: 05/24/18 13:53 Dose: Not Given Dextrose (Dextrose 5% In Water 1000 Ml) 1,000 mls @ 0 mls/hr IV .Q0M PRN; Protocol; Per Protocol PRN Reason: Hypoglycemia Protocol Insulin Human Regular (Novolin R) 0 unit SC ACHS LUANN PRN Reason: Protocol Last Admin: 05/24/18 12:50 Dose: 4 units Methylprednisolone (Solu-Medrol) 40 mg IVP Q8 [facility] Last Admin: 05/24/18 13:02 Dose: 40 mg Montelukast Sodium (Singulair) 10 mg PO HS [facility] Last Admin: 05/23/18 21:41 Dose: 10 mg - Labs Labs: 05/24/18 06:56 05/24/18 06:56 - Constitutional Appears: No Acute Distress - Head Exam Head Exam: ATRAUMATIC, NORMOCEPHALIC - Eye Exam Eye Exam: EOMI - ENT Exam ENT Exam: Mucous Membranes Moist - Respiratory Exam Respiratory Exam: Wheezes Additional comments: coarse breath sounds B/L - GI/Abdominal Exam GI & Abdominal Exam: Soft. absent: Guarding, Tenderness - Extremities Exam Extremities Exam: absent: Pedal Edema - Neurological Exam Neurological Exam: Alert, Awake, Oriented x3 - Psychiatric Exam Psychiatric exam: Normal Affect, Normal Mood - Skin Skin Exam: Dry, Warm Assessment and Plan - Assessment and Plan (Free Text) Plan: Dyspnea 2/2 COPD exacerbation * Duonebs Q4 * Solumedrol 40mg IV Q8 * Singulair 10mg PO qHS * O2 via n/c 2L * CXR 05/22/18: no active disease * EKG 05/22/18: NSR at 80, no ST-T changes * Blood cultures 05/22/18- NGTD * Troponins initial 0.0120 * D-dimer <200 * Negative for influenza * NS@100mL/hr Dysuria- improved * UA +3 glucose * Urine culture- 05/23/18- NGTD Leukocytosis- improving * White count 16.1 -> 14.1 * Afebrile; vitals stable Lower extremity edema- improved * Dopplers negative for DVT History of Hypertension * Currently stable- normotensive * Continue to monitor History of Type 2 DM * HbA1c- 5.9 02/2018 * Patient not compliant with medications at home * ISS * Hypoglycemic protocol Prophylaxis * Pepcid 20mg PO * Heparin 5000 units SC q8 * Heart healthy diet Case discussed with Dr. Baird <Mansi Baird - Last Filed: 05/24/18 19:35> Objective - Vital Signs/Intake and Output Vital Signs (last 24 hours): Temp Pulse Resp BP Pulse Ox 98.1 F 75 20 137/65 100 05/24/18 15:25 05/24/18 15:25 05/24/18 15:25 05/24/18 15:25 05/24/18 16:00 Intake and Output: 05/24/18 05/25/18 18:59 06:59 Intake Total 600 Balance 600 - Medications Medications: Current Medications Albuterol/Ipratropium (Duoneb 3 Mg/0.5 Mg (3 Ml) Ud) 3 ml INH RQ4 [facility] Last Admin: 05/24/18 19:26 Dose: 3 ml Dextrose (Dextrose 50% Inj) 0 ml IV STAT PRN; Protocol PRN Reason: Hypoglycemia Protocol Dextrose (Glutose 15) 0 gm PO ONCE PRN; Protocol PRN Reason: Hypoglycemia Protocol Famotidine (Pepcid) 20 mg PO DAILY [facility] Last Admin: 05/24/18 10:44 Dose: 20 mg Glucagon (Glucagen Diagnostic Kit) 0 mg IM STAT PRN; Protocol PRN Reason: Hypoglycemia Protocol Heparin Sodium (Porcine) (Heparin) 5,000 units SC Q8 [facility] Last Admin: 05/24/18 13:01 Dose: 5,000 units Sodium Chloride (Sodium Chloride 0.9%) 1,000 mls @ 100 mls/hr IV .Q10H [facility] Last Admin: 05/24/18 13:53 Dose: Not Given Dextrose (Dextrose 5% In Water 1000 Ml) 1,000 mls @ 0 mls/hr IV .Q0M PRN; Protocol; Per Protocol PRN Reason: Hypoglycemia Protocol Insulin Human Regular (Novolin R) 0 unit SC ACHS [facility] PRN Reason: Protocol Last Admin: 05/24/18 17:10 Dose: 3 units Methylprednisolone (Solu-Medrol) 40 mg IVP Q8 [facility] Last Admin: 05/24/18 13:02 Dose: 40 mg Montelukast Sodium (Singulair) 10 mg PO HS [facility] Last Admin: 05/23/18 21:41 Dose: 10 mg - Labs Labs: 05/24/18 06:56 05/24/18 06:56 Attending/Attestation - Attestation I have personally seen and examined this patient.: Yes I have fully participated in the care of the patient.: Yes I have reviewed all pertinent clinical information, including history, physical exam and plan: Yes Notes (Text): Seen and examined by me Has bilateral wheezing continue steroid and duoneb d/w resident and I agrees with the documentation
[2018-05-25] MEDS: Albuterol-Ipratrop 3 mg / 0.5 (3 ml) UD INH SCH ×6 (00:15→23:54)
[2018-05-25] MEDS: Sodium Chloride 0.9% 1,000 ML IV SCH ×3 (01:29→22:09)
[2018-05-25] MEDS: MethylPREDNISolone 40 mg Vial IVP SCH ×3 (05:30→22:10)
[2018-05-25 08:08] LABS: BASO % 0.1 % (0.0-2.0); EOS % 0.1 % (0.0-4.0); HEMOGLOBIN 12.3 g/dL (12.0-18.0); LYMPH # 0.8 K/uL (1.0-4.3); LYMPH % 6.5 % (20.0-40.0); MEAN CELL VOLUME 80.2 fL (80.0-94.0); MEAN CORPUSCULAR HEMOGLOBIN 26.5 pg (27.0-31.0); MEAN PLATELET VOLUME 8.7 fL (7.2-11.7); MONO # 0.7 K/uL (0.0-0.8); MONO % 5.6 % (0.0-10.0); NEUT % 87.7 % (50.0-75.0); PLATELET COUNT 264 K/uL (130-400); RBC 4.66 Mil/uL (4.40-5.90); RED CELL DISTRIBUTION WIDTH 15.1 % (11.5-14.5); WHITE BLOOD COUNT 12.6 K/uL (4.8-10.8)
[2018-05-25] MEDS: (Novolin R) Insulin Human Regular 100 units/ml vial SC SCH ×4 (08:25→22:10)
[2018-05-25 08:34] LABS: ALB/GLOB RATIO 1.4 (1.0-2.1); ALBUMIN 3.4 g/dL (3.5-5.0); ALT/SGPT 29 U/L (21-72); AST/SGOT 16 U/L (17-59); BLOOD UREA NITROGEN 33 mg/dL (9-20); CALCIUM 8.8 mg/dl (8.6-10.4); GFR AFRICAN-AMERICAN > 60; GFR NON-AFRICAN AMERICAN > 60
[2018-05-25] MEDS ORDERED: Pneumococcal 23-Valent Vaccine SC ONE (10:00)
[2018-05-25 10:01] LABS: LYMPHOCYTE 8 % (20-40); MONOCYTE 5 % (0-10); MYELOCYTE 1 % (0-0); NEUTROPHIL 86 % (50-75); PLATELET ESTIMATE NORMAL (NORMAL); TOTAL CELLS COUNTED 100
[2018-05-25 10:02] LABS: ANISOCYTOSIS SLIGHT; BURR CELLS SLIGHT; HYPOCHROMIC SLIGHT; POIKILOCYTOSIS SLIGHT
--- NOTE | 2018-05-25 10:34 | VASCLAB ---
Date of service: 05/23/2018 PROCEDURE: Lower Extremity Venous Duplex Exam. HISTORY: lower extremity edema SOB PRIORS: None. TECHNIQUE: Bilateral common femoral, femoral, popliteal and posterior tibial, peroneal and great saphenous veins were evaluated. Flow was assessed with color Doppler, compressibility, assessment of phasic flow and augmentation response. Report prepared by Beltran Vizcaino RVT. FINDINGS: RIGHT: 1. Common Femoral Vein: 1.1. Compressibility - Fully compressible: Thrombus - None : Flow - Phasic: Augmentation -Normal: Reflux - . 2. Femoral Vein: 2.1. Compressibility - Fully compressible: Thrombus - None : Flow - Phasic: Augmentation -Normal: Reflux - . 3. Popliteal Vein: 3.1. Compressibility - Fully compressible: Thrombus - None : Flow - Phasic: Augmentation -Normal: Reflux - . 4. Posterior Tibial Vein: 4.1. Compressibility - Fully compressible: Thrombus - None: Flow - : Augmentation -: Reflux - . 5. Peroneal Vein: 5.1. Compressibility - Fully compressible: Thrombus - None: Flow - : Augmentation -: Reflux - . 6. Great Saphenous Vein: 6.1. Compressibility - Fully compressible: Thrombus - None: Flow - Phasic: Augmentation - l: Reflux - . LEFT: 1. Common Femoral Vein: 1.1. Compressibility - Fully compressible: Thrombus - None: Flow - Phasic: Augmentation -Normal: Reflux - . 2. Femoral Vein: 2.1. Compressibility - Fully compressible: Thrombus - None: Flow - Phasic: Augmentation -Normal: Reflux - . 3. Popliteal Vein: 3.1. Compressibility - Fully compressible: Thrombus - None : Flow - Phasic: Augmentation -Normal: Reflux - . 4. Posterior Tibial Vein: 4.1. Compressibility - Fully compressible: Thrombus - None: Flow - : Augmentation -l: Reflux - . 5. Peroneal Vein: 5.1. Compressibility - Fully compressible: Thrombus - None: Flow - : Augmentation -: Reflux - . 6. Great Saphenous Vein: 6.1. Compressibility - Fully compressible: Thrombus - None: Flow - Phasic: Augmentation - : Reflux - . OTHER FINDINGS: Right: None significant. Left: None significant. IMPRESSION: Right: No evidence of deep or superficial vein thrombosis of the right lower extremity. Left: No evidence of deep or superficial vein thrombosis of the left lower extremity.
--- NOTE | 2018-05-25 15:46 | CP.PCM.PN ---
<Kinjal Murray Y - Last Filed: 05/25/18 15:43> Subjective - Date & Time of Evaluation Date of Evaluation: 05/25/18 Time of Evaluation: 09:48 - Subjective Subjective: PGY-1 Medicine Progress Note for Dr. Preciado Patient was seen and examined at bedside today in no acute distress. Nurse reports no overnight events. Patient resting comfortably when observed from outside of room. Began wheezing when noticed caretakers come in. Complains of ongoing cough and difficulty breathing. Not using supplemental oxygen, although provided. Denies chest pain, chest tightness, abdominal pain, constipation, diarrhea, fever, chills. Objective - Vital Signs/Intake and Output Vital Signs (last 24 hours): Temp Pulse Resp BP Pulse Ox 98.5 F 77 20 140/63 99 05/25/18 07:00 05/25/18 07:00 05/25/18 07:00 05/25/18 07:00 05/25/18 08:00 Intake and Output: 05/25/18 05/25/18 06:59 18:59 Intake Total 750 Balance 750 - Medications Medications: Current Medications Albuterol/Ipratropium (Duoneb 3 Mg/0.5 Mg (3 Ml) Ud) 3 ml INH RQ4 [facility] Last Admin: 05/25/18 11:28 Dose: 3 ml Budesonide (Pulmicort Respules) 0.5 mg INH RQ12 [facility] Dextrose (Dextrose 50% Inj) 0 ml IV STAT PRN; Protocol PRN Reason: Hypoglycemia Protocol Dextrose (Glutose 15) 0 gm PO ONCE PRN; Protocol PRN Reason: Hypoglycemia Protocol Famotidine (Pepcid) 20 mg PO DAILY [facility] Last Admin: 05/25/18 09:27 Dose: 20 mg Glucagon (Glucagen Diagnostic Kit) 0 mg IM STAT PRN; Protocol PRN Reason: Hypoglycemia Protocol Heparin Sodium (Porcine) (Heparin) 5,000 units SC Q8 [facility] Last Admin: 05/25/18 13:46 Dose: 5,000 units Sodium Chloride (Sodium Chloride 0.9%) 1,000 mls @ 100 mls/hr IV .Q10H [facility] Last Admin: 05/25/18 12:23 Dose: Not Given Dextrose (Dextrose 5% In Water 1000 Ml) 1,000 mls @ 0 mls/hr IV .Q0M PRN; Protocol; Per Protocol PRN Reason: Hypoglycemia Protocol Insulin Human Regular (Novolin R) 0 unit SC ACHS [facility] PRN Reason: Protocol Last Admin: 05/25/18 12:28 Dose: 6 units Methylprednisolone (Solu-Medrol) 40 mg IVP Q8 [facility] Last Admin: 05/25/18 13:45 Dose: 40 mg Montelukast Sodium (Singulair) 10 mg PO HS [facility] Last Admin: 05/24/18 21:38 Dose: 10 mg - Labs Labs: 05/25/18 07:57 05/25/18 07:57 - Constitutional Appears: Non-toxic, No Acute Distress - Head Exam Head Exam: ATRAUMATIC, NORMOCEPHALIC - Eye Exam Eye Exam: EOMI, Normal appearance - ENT Exam ENT Exam: Mucous Membranes Moist, Normal Exam - Respiratory Exam Respiratory Exam: Wheezes, NORMAL BREATHING PATTERN. absent: Decreased Breath Sounds, Rales, Rhonchi, Respiratory Distress Additional comments: diffuse bilateral expiratory wheezes. seemed forced at end tidal. - Cardiovascular Exam Cardiovascular Exam: REGULAR RHYTHM, +S1, +S2. absent: Murmur - GI/Abdominal Exam GI & Abdominal Exam: Soft, Normal Bowel Sounds. absent: Tenderness - Extremities Exam Extremities Exam: absent: Pedal Edema Additional comments: peripheral pulses present (radial, DP) IV and right hand, good flow - Neurological Exam Neurological Exam: Alert, Awake, Oriented x3 - Psychiatric Exam Psychiatric exam: Normal Affect, Normal Mood - Skin Skin Exam: Dry, Intact, Warm Assessment and Plan - Assessment and Plan (Free Text) Plan: Dyspnea 2/2 COPD exacerbation * Duonebs Q4 * Solumedrol 40mg IV Q8 * Singulair 10mg PO qHS * add Pulmicort 0.5mg INH q12 * O2 via n/c 2L * CXR 05/22/18: no active disease * EKG 05/22/18: NSR at 80, no ST-T changes * Blood cultures 05/22/18- NGTD * Troponins initial 0.0120 * D-dimer <200 * Negative for influenza * NS@100mL/hr Dysuria- improved * UA +3 glucose * Urine culture- 05/23/18- NGTD Leukocytosis- improving * White count improvin.6 from 14.1, 16.1 * Afebrile; vitals stable Lower extremity edema- improved * Dopplers negative for DVT History of Hypertension * Currently stable- normotensive * Continue to monitor History of Type 2 DM * HbA1c- 5.9 02/2018 * Patient not compliant with medications at home * ISS * Hypoglycemic protocol Prophylaxis * Pepcid 20mg PO * Heparin 5000 units SC q8 * Heart healthy diet Kinjal Murray PGY-1. Case discussed with Dr. Preciado <Charles Preciado H - Last Filed: 05/25/18 17:37> Objective - Vital Signs/Intake and Output Vital Signs (last 24 hours): Temp Pulse Resp BP Pulse Ox 98.3 F 76 20 158/70 H 99 05/25/18 16:47 05/25/18 16:47 05/25/18 16:47 05/25/18 16:47 05/25/18 16:47 Intake and Output: 05/25/18 05/25/18 06:59 18:59 Intake Total 750 480 Balance 750 480 - Medications Medications: Current Medications Albuterol/Ipratropium (Duoneb 3 Mg/0.5 Mg (3 Ml) Ud) 3 ml INH RQ4 [facility] Last Admin: 05/25/18 11:28 Dose: 3 ml Budesonide (Pulmicort Respules) 0.5 mg INH RQ12 [facility] Dextrose (Dextrose 50% Inj) 0 ml IV STAT PRN; Protocol PRN Reason: Hypoglycemia Protocol Dextrose (Glutose 15) 0 gm PO ONCE PRN; Protocol PRN Reason: Hypoglycemia Protocol Famotidine (Pepcid) 20 mg PO DAILY [facility] Last Admin: 05/25/18 09:27 Dose: 20 mg Glucagon (Glucagen Diagnostic Kit) 0 mg IM STAT PRN; Protocol PRN Reason: Hypoglycemia Protocol Heparin Sodium (Porcine) (Heparin) 5,000 units SC Q8 [facility] Last Admin: 05/25/18 13:46 Dose: 5,000 units Sodium Chloride (Sodium Chloride 0.9%) 1,000 mls @ 100 mls/hr IV .Q10H [facility] Last Admin: 05/25/18 12:23 Dose: Not Given Dextrose (Dextrose 5% In Water 1000 Ml) 1,000 mls @ 0 mls/hr IV .Q0M PRN; Protocol; Per Protocol PRN Reason: Hypoglycemia Protocol Insulin Human Regular (Novolin R) 0 unit SC ACHS [facility] PRN Reason: Protocol Last Admin: 05/25/18 17:06 Dose: 3 units Methylprednisolone (Solu-Medrol) 40 mg IVP Q8 [facility] Last Admin: 05/25/18 13:45 Dose: 40 mg Montelukast Sodium (Singulair) 10 mg PO HS [facility] Last Admin: 05/24/18 21:38 Dose: 10 mg - Labs Labs: 05/25/18 07:57 05/25/18 07:57 Attending/Attestation - Attestation I have personally seen and examined this patient.: Yes I have fully participated in the care of the patient.: Yes I have reviewed all pertinent clinical information, including history, physical exam and plan: Yes Notes (Text): 05/25/18 17:35 Medical attending: Patient was seen and examined by me as well. Agree with the above note by the resident The patient is known to the hospitalist service and myself from previous complications from COPD as well as Pseudomonas Pneumonia admissions. This time his cultures are negative for psudomonas however on exam he does have extensive wheezing which is not different from previous times we have worked with this patient. He is already on IV solumedrol as well as nebulizers and spiriva. Will add on pulmicort for the time being BID. thank you Charles Preciado
[2018-05-25 19:15] LABS: URINE BACTERIA OCC (<OCC); URINE BILIRUBIN NEGATIVE (NEGATIVE); URINE BLOOD NEGATIVE (NEGATIVE); URINE CLARITY Clear (Clear); URINE COLOR Yellow (YELLOW); URINE GLUCOSE (UA) 3+ mg/dL (Normal); URINE LEUKOCYTE ESTERASE NEG Leu/uL (Negative); URINE PROTEIN NEGATIVE (NEGATIVE); URINE UROBILINOGEN NORMAL mg/dL (0.2-1.0)
[2018-05-26] MEDS: Albuterol-Ipratrop 3 mg / 0.5 (3 ml) UD INH SCH ×6 (03:16→23:55)
[2018-05-26] MEDS: MethylPREDNISolone 40 mg Vial IVP SCH (05:29)
--- NOTE | 2018-05-26 06:24 | CP.PCM.PN ---
<Kinjal Murray Y - Last Filed: 05/26/18 16:05> Subjective - Date & Time of Evaluation Date of Evaluation: 05/26/18 Time of Evaluation: 08:50 - Subjective Subjective: PGY-1 Medicine Progress Note for Dr. Preciado Patient was seen and examined today sitting up OOB in chair in no acute distress. Nurse reports no overnight events. Patient complains of new onset constipation and dry skin. His difficulty breathing eases when using 3L supplemental oxygen. Denies chest pain, abdominal pain, nausea, vomiting, diarrhea. Objective - Vital Signs/Intake and Output Vital Signs (last 24 hours): Temp Pulse Resp BP Pulse Ox 97.7 F 73 20 149/71 98 05/26/18 00:08 05/26/18 00:08 05/26/18 00:08 05/26/18 00:08 05/26/18 00:08 Intake and Output: 05/25/18 05/26/18 18:59 06:59 Intake Total 480 780 Balance 480 780 - Medications Medications: Current Medications Albuterol/Ipratropium (Duoneb 3 Mg/0.5 Mg (3 Ml) Ud) 3 ml INH RQ4 [facility] Last Admin: 05/26/18 03:16 Dose: 3 ml Budesonide (Pulmicort Respules) 0.5 mg INH RQ12 [facility] Dextrose (Dextrose 50% Inj) 0 ml IV STAT PRN; Protocol PRN Reason: Hypoglycemia Protocol Dextrose (Glutose 15) 0 gm PO ONCE PRN; Protocol PRN Reason: Hypoglycemia Protocol Famotidine (Pepcid) 20 mg PO DAILY [facility] Last Admin: 05/25/18 09:27 Dose: 20 mg Glucagon (Glucagen Diagnostic Kit) 0 mg IM STAT PRN; Protocol PRN Reason: Hypoglycemia Protocol Insulin Human Regular (Novolin R) 0 unit SC ACHS [facility] PRN Reason: Protocol Last Admin: 05/25/18 22:10 Dose: 2 units Methylprednisolone (Solu-Medrol) 40 mg IVP Q8 [facility] Last Admin: 05/26/18 05:29 Dose: 40 mg Montelukast Sodium (Singulair) 10 mg PO HS [facility] Last Admin: 05/25/18 22:19 Dose: 10 mg - Labs Labs: 05/25/18 07:57 05/25/18 07:57 - Constitutional Appears: Non-toxic, No Acute Distress - Head Exam Head Exam: ATRAUMATIC, NORMOCEPHALIC - ENT Exam ENT Exam: Mucous Membranes Moist, Normal Exam - Respiratory Exam Respiratory Exam: Clear to Ausculation Bilateral, Wheezes, NORMAL BREATHING PATTERN Additional comments: diffuse bilateral expiratory wheezes. seemed forced at end tidal. - Cardiovascular Exam Cardiovascular Exam: REGULAR RHYTHM, +S1, +S2. absent: Murmur - GI/Abdominal Exam GI & Abdominal Exam: Soft, Normal Bowel Sounds. absent: Firm, Guarding, Rigid - Extremities Exam Extremities Exam: Full ROM, Joint Swelling, Normal Capillary Refill. absent: Pedal Edema Additional comments: Peripheral pulses present (radial, DP) IV removed, wound covered. - Neurological Exam Neurological Exam: Alert, Awake - Psychiatric Exam Psychiatric exam: Normal Affect, Normal Mood - Skin Skin Exam: Dry, Intact, Warm Assessment and Plan - Assessment and Plan (Free Text) Plan: Dyspnea 2/2 COPD exacerbation * Duonebs Q4 * Solumedrol 40mg IV Q8 -> switched to Prednisone 20mg PO bid * Singulair 10mg PO qHS * add Pulmicort 0.5mg INH q12 * O2 via n/c 2L * CXR 05/22/18: no active disease * EKG 05/22/18: NSR at 80, no ST-T changes * Blood cultures 05/22/18- NGTD * Troponins initial 0.0120 * D-dimer <200 * Negative for influenza * NS@100mL/hr Dysuria- improved * UA +3 glucose * Urine culture- 05/23/18- NGTD Leukocytosis- improving * White count down-trendin.0 trend: 12.6, 14.1, 16.1 * Afebrile; vitals stable Lower extremity edema- improved * Dopplers negative for DVT History of Hypertension * Currently stable- normotensive * Continue to monitor History of Type 2 DM * HbA1c- 5.9 02/2018 * Patient not compliant with medications at home * ISS * Hypoglycemic protocol Prophylaxis * Pepcid 20mg PO * Heparin 5000 units SC q8 * Colace 100mg po bid * Heart healthy diet Kinjal Murray PGY-1. Case discussed with Dr. Preciado <Charles Preciado - Last Filed: 05/26/18 16:48> Objective - Vital Signs/Intake and Output Vital Signs (last 24 hours): Temp Pulse Resp BP Pulse Ox 98.8 F 70 20 143/71 97 05/26/18 15:55 05/26/18 15:55 05/26/18 15:55 05/26/18 15:55 05/26/18 16:31 Intake and Output: 05/26/18 05/26/18 06:59 18:59 Intake Total 780 4845 Output Total 4100 Balance 780 745 - Medications Medications: Current Medications Albuterol/Ipratropium (Duoneb 3 Mg/0.5 Mg (3 Ml) Ud) 3 ml INH RQ4 [facility] Last Admin: 05/26/18 16:10 Dose: 3 ml Budesonide (Pulmicort Respules) 0.5 mg INH RQ12 [facility] Last Admin: 05/26/18 07:52 Dose: 0.5 mg Dextrose (Dextrose 50% Inj) 0 ml IV STAT PRN; Protocol PRN Reason: Hypoglycemia Protocol Dextrose (Glutose 15) 0 gm PO ONCE PRN; Protocol PRN Reason: Hypoglycemia Protocol Docusate Sodium (Colace) 100 mg PO BID [facility] Famotidine (Pepcid) 20 mg PO DAILY [facility] Last Admin: 05/26/18 10:30 Dose: 20 mg Glucagon (Glucagen Diagnostic Kit) 0 mg IM STAT PRN; Protocol PRN Reason: Hypoglycemia Protocol Heparin Sodium (Porcine) (Heparin) 5,000 units SC Q8 [facility] Last Admin: 05/26/18 14:36 Dose: 5,000 units Insulin Human Regular (Novolin R) 0 unit SC ACHS [facility] PRN Reason: Protocol Last Admin: 05/26/18 11:30 Dose: Not Given Montelukast Sodium (Singulair) 10 mg PO HS [facility] Last Admin: 05/25/18 22:19 Dose: 10 mg Prednisone (Prednisone Tab) 20 mg PO BID [facility] - Labs Labs: 05/26/18 06:38 05/26/18 06:38 Attending/Attestation - Attestation I have personally seen and examined this patient.: Yes I have fully participated in the care of the patient.: Yes I have reviewed all pertinent clinical information, including history, physical exam and plan: Yes Notes (Text): 05/26/18 16:44 Medical attending: Patient was seen and examined by me. Agree with the above note by the resident The patient was not in any acute distress when we saw him. The patient was changed over to PO prednisone BID and the IV solumedrol was stopped today. He remains on nebulizaers as well as the pulmicort BID Will probably discharge tommorow. thank you Charles Preciado
[2018-05-26 06:47] LABS: BASO % 0.2 % (0.0-2.0); HEMOGLOBIN 11.5 g/dL (12.0-18.0); MEAN CELL VOLUME 79.8 fL (80.0-94.0); MEAN CORPUSCULAR HEMOGLOBIN 26.5 pg (27.0-31.0); MEAN CORPUSCULAR HGB CONC 33.1 g/dL (33.0-37.0); MEAN PLATELET VOLUME 8.6 fL (7.2-11.7); MONO # 0.9 K/uL (0.0-0.8); MONO % 6.9 % (0.0-10.0); NEUT % 84.9 % (50.0-75.0); NRBC % 0.1 % (0.0-2.0); PLATELET COUNT 251 K/uL (130-400); RBC 4.34 Mil/uL (4.40-5.90); RED CELL DISTRIBUTION WIDTH 15.4 % (11.5-14.5)
[2018-05-26] MEDS: Budesonide 0.5 mg/2 ml Inhal Susp UD INH SCH ×2 (07:52→19:40)
[2018-05-26 08:07] LABS: ALB/GLOB RATIO 1.3 (1.0-2.1); ALBUMIN 3.2 g/dL (3.5-5.0); ALT/SGPT 30 U/L (21-72); AST/SGOT 22 U/L (17-59); BLOOD UREA NITROGEN 35 mg/dL (9-20); CALCIUM 8.3 mg/dl (8.6-10.4); GFR AFRICAN-AMERICAN > 60; GFR NON-AFRICAN AMERICAN > 60
[2018-05-26] MEDS: (Novolin R) Insulin Human Regular 100 units/ml vial SC SCH ×4 (08:28→21:30)
[2018-05-26 08:44] LABS: BANDS 1 % (0-2); LYMPHOCYTE 5 % (20-40); MONOCYTE 7 % (0-10); NEUTROPHIL 87 % (50-75); TOTAL CELLS COUNTED 100
[2018-05-26 08:45] LABS: ANISOCYTOSIS SLIGHT; HYPOCHROMIC SLIGHT; PLATELET ESTIMATE NORMAL (NORMAL)
[2018-05-26 08:46] LABS: POLYCHROMIC SLIGHT
[2018-05-27] MEDS: Albuterol-Ipratrop 3 mg / 0.5 (3 ml) UD INH SCH ×4 (03:27→15:42)
[2018-05-27 06:46] LABS: BASO % 0.2 % (0.0-2.0); EOS % 0.1 % (0.0-4.0); HEMOGLOBIN 11.9 g/dL (12.0-18.0); LYMPH % 13.9 % (20.0-40.0); MEAN CELL VOLUME 80.1 fL (80.0-94.0); MEAN CORPUSCULAR HEMOGLOBIN 26.1 pg (27.0-31.0); MEAN CORPUSCULAR HGB CONC 32.6 g/dL (33.0-37.0); MEAN PLATELET VOLUME 8.5 fL (7.2-11.7); MONO # 1.4 K/uL (0.0-0.8); NEUT % 75.8 % (50.0-75.0); NRBC % 0.4 % (0.0-2.0); RBC 4.56 Mil/uL (4.40-5.90); RED CELL DISTRIBUTION WIDTH 15.2 % (11.5-14.5); WHITE BLOOD COUNT 14.5 K/uL (4.8-10.8)
[2018-05-27 07:16] LABS: ALB/GLOB RATIO 1.4 (1.0-2.1); ALBUMIN 3.1 g/dL (3.5-5.0); ALT/SGPT 32 U/L (21-72); AST/SGOT 23 U/L (17-59); BLOOD UREA NITROGEN 36 mg/dL (9-20); CALCIUM 8.7 mg/dl (8.6-10.4); GFR AFRICAN-AMERICAN > 60; GFR NON-AFRICAN AMERICAN > 60
[2018-05-27] MEDS: Budesonide 0.5 mg/2 ml Inhal Susp UD INH SCH (07:19)
[2018-05-27] MEDS: (Novolin R) Insulin Human Regular 100 units/ml vial SC SCH ×3 (07:57→17:27)
[2018-05-27 08:34] VITALS: RESP 20
--- NOTE | 2018-05-27 11:50 | CP.PCM.DIS ---
<Chuy Hurley - Last Filed: 05/27/18 14:26> Provider - Provider Date of Admission: 05/25/18 11:17 Attending physician: Charles Preciado DO Primary care physician: none Time Spent in preparation of Discharge (in minutes): 40 Diagnosis - Discharge Diagnosis (1) COPD exacerbation Status: Acute Comment: Patient is well-known to hospital service from previous admissions due to complications of COPD. He was admitted to hospital on 05/22/18 for COPD exacerbation. He is homeless, he does not follow up at [facility] clinic as directed in the past. He also ran out of his medications from prior visit. Hospital Course - Lab Results Lab Results: Micro Results 05/22/18 15:00 Blood Blood Culture - Preliminary NO GROWTH AFTER 4 DAYS 05/22/18 16:40 Blood Blood Culture - Preliminary NO GROWTH AFTER 4 DAYS 05/23/18 03:57 Urine Urine Culture - Final No Growth (<1,000 CFU/ML) Most Recent Lab Values WBC 14.5 K/uL (4.8-10.8) H 05/27/18 06:33 RBC 4.56 Mil/uL (4.40-5.90) 05/27/18 06:33 Hgb 11.9 g/dL (12.0-18.0) L 05/27/18 06:33 Hct 36.5 % (35.0-51.0) 05/27/18 06:33 MCV 80.1 fL (80.0-94.0) 05/27/18 06:33 MCH 26.1 pg (27.0-31.0) L 05/27/18 06:33 MCHC 32.6 g/dL (33.0-37.0) L 05/27/18 06:33 RDW 15.2 % (11.5-14.5) H 05/27/18 06:33 Plt Count 259 K/uL (130-400) 05/27/18 06:33 MPV 8.5 fL (7.2-11.7) 05/27/18 06:33 Neut % (Auto) 75.8 % (50.0-75.0) H 05/27/18 06:33 Lymph % (Auto) 13.9 % (20.0-40.0) L 05/27/18 06:33 [place] % (Auto) 10.0 % (0.0-10.0) 05/27/18 06:33 Eos % (Auto) 0.1 % (0.0-4.0) 05/27/18 06:33 Baso % (Auto) 0.2 % (0.0-2.0) 05/27/18 06:33 Neut # (Auto) 11.0 K/uL (1.8-7.0) H 05/27/18 06:33 Lymph # (Auto) 2.0 K/uL (1.0-4.3) 05/27/18 06:33 [place] # (Auto) 1.4 K/uL (0.0-0.8) H 05/27/18 06:33 Eos # (Auto) 0.0 K/uL (0.0-0.7) 05/27/18 06:33 Baso # (Auto) 0.0 K/uL (0.0-0.2) 05/27/18 06:33 Neutrophils % (Manual) 87 % (50-75) H 05/26/18 06:38 Band Neutrophils % 1 % (0-2) 05/26/18 06:38 Lymphocytes % (Manual) 5 % (20-40) L 05/26/18 06:38 Monocytes % (Manual) 7 % (0-10) 05/26/18 06:38 Myelocytes % 1 % (0-0) H 05/25/18 07:57 Nucleated RBC % 1 % (0-0) H 05/24/18 06:56 Platelet Estimate Normal (NORMAL) 05/26/18 06:38 Polychromasia Slight 05/26/18 06:38 Hypochromasia (manual) Slight 05/26/18 06:38 Poikilocytosis (manual Slight 05/25/18 07:57 Anisocytosis (manual) Slight 05/26/18 06:38 Tear Drop Cells Slight 05/24/18 06:56 Ovalocytes Slight 05/24/18 06:56 [place] Cells Slight 05/25/18 07:57 D-Dimer, Quantitative < 200 ng/mlDDU (0-243) 05/22/18 19:43 Sodium 135 mmol/L (132-148) 05/27/18 06:33 Potassium 4.8 mmol/L (3.6-5.2) 05/27/18 06:33 Chloride 101 mmol/L (98-107) 05/27/18 06:33 Carbon Dioxide 29 mmol/L (22-30) 05/27/18 06:33 Anion Gap 11 (10-20) 05/27/18 06:33 BUN 36 mg/dL (9-20) H 05/27/18 06:33 Creatinine 1.0 mg/dL (0.8-1.5) 05/27/18 06:33 Est GFR ( Amer) > 60 05/27/18 06:33 Est GFR (Non-Af Amer) > 60 05/27/18 06:33 POC Glucose (mg/dL) 152 mg/dL (65-110) H 05/27/18 11:17 Random Glucose 111 mg/dL (75-110) H 05/27/18 06:33 Hemoglobin A1c 7.3 % (4.2-6.5) H 05/25/18 07:57 Calcium 8.7 mg/dl (8.6-10.4) 05/27/18 06:33 Total Bilirubin 0.4 mg/dL (0.2-1.3) 05/27/18 06:33 AST 23 U/L (17-59) 05/27/18 06:33 ALT 32 U/L (21-72) 05/27/18 06:33 Alkaline Phosphatase 50 U/L (38-126) 05/27/18 06:33 Troponin I 0.0280 ng/mL (0.00-0.120) 05/27/18 10:28 Total Protein 5.3 g/dL (6.3-8.3) L 05/27/18 06:33 Albumin 3.1 g/dL (3.5-5.0) L 05/27/18 06:33 Globulin 2.2 gm/dL (2.2-3.9) 05/27/18 06:33 Albumin/Globulin Ratio 1.4 (1.0-2.1) 05/27/18 06:33 Urine Color Yellow (YELLOW) 05/25/18 18:19 Urine Clarity Clear (Clear) 05/25/18 18:19 Urine pH 5.0 (5.0-8.0) 05/25/18 18:19 Ur Specific Jacob 1.022 (1.003-1.030) 05/25/18 18:19 Urine Protein Negative mg/dL (NEGATIVE) 05/25/18 18:19 Urine Glucose (UA) 3+ mg/dL (Normal) H 05/25/18 18:19 Urine Ketones Negative mg/dL (NEGATIVE) 05/25/18 18:19 Urine Blood Negative (NEGATIVE) 05/25/18 18:19 Urine Nitrate Negative (NEGATIVE) 05/25/18 18:19 Urine Bilirubin Negative (NEGATIVE) 05/25/18 18:19 Urine Urobilinogen Normal mg/dL (0.2-1.0) 05/25/18 18:19 Ur Leukocyte Esterase Neg Aftab/uL (Negative) 05/25/18 18:19 Urine RBC (Auto) 4 /hpf (0-3) H 05/25/18 18:19 Urine Bacteria Occ (<OCC) H 05/25/18 18:19 Urine Yeast (Budding) Many /hpf (NEGATIVE) H 05/25/18 18:19 Influenza Typ A,B (EIA) Negative for flu a/b (NEGATIVE) 05/22/18 19:30 - Hospital Course Hospital Course: On admission on 05/22/18 HPI Patient is a 67 year old male with history of COPD, Type 2 DM, HTN, PE 3 years ago with IVC filter, psoriasis who presents for complaints of 2 day history of chest pain, shortness of breath, and cough productive of brown and yellow sputum that worsened this evening. Admits to subjective fevers and chills , along with dizziness, headache. He states he had abdominal pain with vomiting and diarrhea 2 days ago. He states he has had some burning with urination with blood in his urine recently. States he has had normal bowel movements, denies diarrhea or constipation. Denies leg pain, however states he has had some swelling of his lower extremities. Hospital course: Patient was treated with IV Solumedrol, nebulizers, Singulair. He had a CXR done which did not reveal infiltrates. His blood work remains stable. On 05/25/18 , patient was started on Pulmicort twice daily. On 05/26/18, IV Solumedrol was discontinued and he was placed on oral Prednisone. Patient complained of chest pain during his hospitalization. EKG and troponin were ordered which were stable , suggesting that his chest pain was likely due to coughing, costochondritis. He will be discharged today with Prednisone, Pulmicort, Albuterol, Singulair. Hopefully, patient will follow up at [facility] clinic, however past experience tells us otherwise. Discharge summary: Patient is medically stable for discharge. He is instructed to follow up with [facility] ([phone]) for follow up in 1 to 2 weeks. Patient may return to ED if symptoms return or worsen. Patient was given [place] form for the following scripts: Ventolin HFA 90mcg INH 2 parts Q4 #1 inhaler, 2 refills. Pulmicort 0.5mg INH Q12 hours #1 inhaler, 2 refills Prednisone 20mg PO daily for 5 days, no refill. Singulair 10mg PO HS daily for 30 days, with 2 refills. Discharge Exam - Head Exam Head Exam: ATRAUMATIC, NORMOCEPHALIC - Eye Exam Eye Exam: EOMI. absent: Scleral icterus - ENT Exam ENT Exam: Mucous Membranes Moist - Neck Exam Neck exam: Full Rom - Respiratory Exam Respiratory Exam: Rales, Rhonchi. absent: Accessory Muscle Use, Respiratory Distress, Stridor - Cardiovascular Exam Cardiovascular Exam: REGULAR RHYTHM, +S1, +S2. absent: Gallop, Rubs, Systolic Murmur - GI/Abdominal Exam GI & Abdominal Exam: Normal Bowel Sounds, Soft. absent: Distended, Firm, Guarding, Rigid, Tenderness - Extremities Exam Additional comments: Patient has dry scaly thickened skin on lower extremities. no calf tenderness or pitting edema noted. Thick yellow nails consistent with onychomycosis - Back Exam Back exam: absent: CVA tenderness (L), CVA tenderness (R) - Neurological Exam Neurological exam: Alert, Oriented x3 - Psychiatric Exam Psychiatric exam: Flat Affect - Skin Skin Exam: Dry, Intact, Normal Color, Warm Additional comments: Skin changes on lower extremities with thickened, textured skin with mild scales Discharge Plan - Discharge Medications Prescriptions: Albuterol HFA [Ventolin HFA 90 mcg/actuation (8 g)] 2 puff IH Q4 PRN #1 inh PRN Reason: Shortness Of Breath Budesonide [Pulmicort Respules] 0.5 mg INH RQ12 30 Days #60 neb Montelukast [Singulair] 10 mg PO HS #30 tab predniSONE [predniSONE Tab] 20 mg PO DAILY 5 Days tab - Follow Up Plan Condition: STABLE Disposition: OTHER INSTITUTION Instructions: Smoking: Not Just Harmful to Your Lungs and Heart, Heart Failure , Adult (DC), Quitting Smoking, Exacerbation of COPD (DC), Medicines for Chronic Obstructive Pulmonary Disease (COPD) Additional Instructions: Patient is medically stable for discharge. He is instructed to follow up with [facility] ([phone]) for follow up in 1 to 2 weeks. Patient may return to ED if symptoms return or worsen. Patient was given [place] form for the following scripts: Ventolin HFA 90mcg INH 2 parts Q4 #1 inhaler, 2 refills. Pulmicort 0.5mg INH Q12 hours #1 inhaler, 2 refills Prednisone 20mg PO daily for 5 days, no refill. Singulair 10mg PO HS daily for 30 days, with 2 refills. <Charles Preciado - Last Filed: 05/27/18 18:02> Provider - Provider Date of Admission: 05/25/18 11:17 Attending physician: Charles Preciado DO Hospital Course - Lab Results Lab Results: Micro Results 05/22/18 15:00 Blood Blood Culture - Preliminary NO GROWTH AFTER 4 DAYS 05/22/18 16:40 Blood Blood Culture - Preliminary NO GROWTH AFTER 4 DAYS 05/23/18 03:57 Urine Urine Culture - Final No Growth (<1,000 CFU/ML) Most Recent Lab Values WBC 14.5 K/uL (4.8-10.8) H 05/27/18 06:33 RBC 4.56 Mil/uL (4.40-5.90) 05/27/18 06:33 Hgb 11.9 g/dL (12.0-18.0) L 05/27/18 06:33 Hct 36.5 % (35.0-51.0) 05/27/18 06:33 MCV 80.1 fL (80.0-94.0) 05/27/18 06:33 MCH 26.1 pg (27.0-31.0) L 05/27/18 06:33 MCHC 32.6 g/dL (33.0-37.0) L 05/27/18 06:33 RDW 15.2 % (11.5-14.5) H 05/27/18 06:33 Plt Count 259 K/uL (130-400) 05/27/18 06:33 MPV 8.5 fL (7.2-11.7) 05/27/18 06:33 Neut % (Auto) 75.8 % (50.0-75.0) H 05/27/18 06:33 Lymph % (Auto) 13.9 % (20.0-40.0) L 05/27/18 06:33 [place] % (Auto) 10.0 % (0.0-10.0) 05/27/18 06:33 Eos % (Auto) 0.1 % (0.0-4.0) 05/27/18 06:33 Baso % (Auto) 0.2 % (0.0-2.0) 05/27/18 06:33 Neut # (Auto) 11.0 K/uL (1.8-7.0) H 05/27/18 06:33 Lymph # (Auto) 2.0 K/uL (1.0-4.3) 05/27/18 06:33 [place] # (Auto) 1.4 K/uL (0.0-0.8) H 05/27/18 06:33 Eos # (Auto) 0.0 K/uL (0.0-0.7) 05/27/18 06:33 Baso # (Auto) 0.0 K/uL (0.0-0.2) 05/27/18 06:33 Neutrophils % (Manual) 87 % (50-75) H 05/26/18 06:38 Band Neutrophils % 1 % (0-2) 05/26/18 06:38 Lymphocytes % (Manual) 5 % (20-40) L 05/26/18 06:38 Monocytes % (Manual) 7 % (0-10) 05/26/18 06:38 Myelocytes % 1 % (0-0) H 05/25/18 07:57 Nucleated RBC % 1 % (0-0) H 05/24/18 06:56 Platelet Estimate Normal (NORMAL) 05/26/18 06:38 Polychromasia Slight 05/26/18 06:38 Hypochromasia (manual) Slight 05/26/18 06:38 Poikilocytosis (manual Slight 05/25/18 07:57 Anisocytosis (manual) Slight 05/26/18 06:38 Tear Drop Cells Slight 05/24/18 06:56 Ovalocytes Slight 05/24/18 06:56 [place] Cells Slight 05/25/18 07:57 D-Dimer, Quantitative < 200 ng/mlDDU (0-243) 05/22/18 19:43 Sodium 135 mmol/L (132-148) 05/27/18 06:33 Potassium 4.8 mmol/L (3.6-5.2) 05/27/18 06:33 Chloride 101 mmol/L (98-107) 05/27/18 06:33 Carbon Dioxide 29 mmol/L (22-30) 05/27/18 06:33 Anion Gap 11 (10-20) 05/27/18 06:33 BUN 36 mg/dL (9-20) H 05/27/18 06:33 Creatinine 1.0 mg/dL (0.8-1.5) 05/27/18 06:33 Est GFR ( Amer) > 60 05/27/18 06:33 Est GFR (Non-Af Amer) > 60 05/27/18 06:33 POC Glucose (mg/dL) 216 mg/dL (65-110) H 05/27/18 16:41 Random Glucose 111 mg/dL (75-110) H 05/27/18 06:33 Hemoglobin A1c 7.3 % (4.2-6.5) H 05/25/18 07:57 Calcium 8.7 mg/dl (8.6-10.4) 05/27/18 06:33 Total Bilirubin 0.4 mg/dL (0.2-1.3) 05/27/18 06:33 AST 23 U/L (17-59) 05/27/18 06:33 ALT 32 U/L (21-72) 05/27/18 06:33 Alkaline Phosphatase 50 U/L (38-126) 05/27/18 06:33 Troponin I 0.0280 ng/mL (0.00-0.120) 05/27/18 10:28 Total Protein 5.3 g/dL (6.3-8.3) L 05/27/18 06:33 Albumin 3.1 g/dL (3.5-5.0) L 05/27/18 06:33 Globulin 2.2 gm/dL (2.2-3.9) 05/27/18 06:33 Albumin/Globulin Ratio 1.4 (1.0-2.1) 05/27/18 06:33 Urine Color Yellow (YELLOW) 05/25/18 18:19 Urine Clarity Clear (Clear) 05/25/18 18:19 Urine pH 5.0 (5.0-8.0) 05/25/18 18:19 Ur Specific Jacob 1.022 (1.003-1.030) 05/25/18 18:19 Urine Protein Negative mg/dL (NEGATIVE) 05/25/18 18:19 Urine Glucose (UA) 3+ mg/dL (Normal) H 05/25/18 18:19 Urine Ketones Negative mg/dL (NEGATIVE) 05/25/18 18:19 Urine Blood Negative (NEGATIVE) 05/25/18 18:19 Urine Nitrate Negative (NEGATIVE) 05/25/18 18:19 Urine Bilirubin Negative (NEGATIVE) 05/25/18 18:19 Urine Urobilinogen Normal mg/dL (0.2-1.0) 05/25/18 18:19 Ur Leukocyte Esterase Neg Aftab/uL (Negative) 05/25/18 18:19 Urine RBC (Auto) 4 /hpf (0-3) H 05/25/18 18:19 Urine Bacteria Occ (<OCC) H 05/25/18 18:19 Urine Yeast (Budding) Many /hpf (NEGATIVE) H 05/25/18 18:19 Influenza Typ A,B (EIA) Negative for flu a/b (NEGATIVE) 05/22/18 19:30 Attending/Attestation - Attestation I have personally seen and examined this patient.: Yes I have fully participated in the care of the patient.: Yes I have reviewed all pertinent clinical information, including history, physical exam and plan: Yes Notes (Text): 05/27/18 17:59 Medical attending: Patient was seen and examined by me. Agree with the above note by the resident The patient was not in any acute distress when we saw him. He still has the ongoing chronic cought from before. He was given RX for medication for his COPD. He reports that he understands the need for follow up with the clinic. I do not know if he actually will, but we emphasized to him that he needs to Charles Preciado
[2018-05-27 17:10] VITALS: BP 148/69; PULSE 71; TEMP 97.9; O2SAT 100
== END 2018-05-27 18:00 | disposition home or self-care (01) | DRG 88 ==
LOC: C.ER 19:17 → C.9E 20:54 → C.3T 21:49 → OBSVTOIN 05-25 11:17
PROVIDERS: ADMIT Hospitalist; ATTEND Hospitalist
DX: J44.1 Chronic obstructive pulmonary disease with (acute) exacerbation (principal); I11.0 Hypertensive heart disease with heart failure; I50.9 Heart failure, unspecified; K92.2 Gastrointestinal hemorrhage, unspecified; E11.9 Type 2 diabetes mellitus without complications; E78.00 Pure hypercholesterolemia, unspecified; Z87.891 Personal history of nicotine dependence; R31.9 Hematuria, unspecified; Z91.14 Patient's other noncompliance with medication regimen; M94.0 Chondrocostal junction syndrome [Tietze]; Z79.4 Long term (current) use of insulin